=== PATIENT | male | born 1965 | race Caucasian/White ===

== ENCOUNTER → 2017-01-30 | Outpatient (CLI) | payer OTHER ==
--- NOTE | 2017-01-30 13:10 | Diagnostic Imaging Report ---
PROCEDURE: MRI right joint lower extremity without contrast. TECHNIQUE: Multiplanar, multisequence non contrast-enhanced MRI of the right lower extremity was accomplished. INDICATION: No known injury. Knee pain all over x8 months. FINDINGS: There is noted an osteochondral defect along the posterior aspect of the medial femoral condyle measuring 10 mm. There is some loss of articulating cartilage along the mid portion of the medial femoral condyle as well with some associated subcortical cystic change and sclerosis. The tibial plateau appears normal. The lateral femoral condyle and tibial plateau are normal. There is considerable increased signal within the anterior portion of the medial meniscus consistent with chronic mucoid degenerative changes. Could not exclude small partial tear of the inferior articulating surface. The lateral meniscus appears normal. The cruciate ligaments are intact. The medial collateral ligament and the lateral collateral ligament complex appear intact. The quadriceps tendon and patellar ligament are intact and normal. The patellofemoral joint appears normal. There is small joint effusion. No evidence of popliteal cyst. Surrounding soft tissues are normal. IMPRESSION: 1. The osteochondral defect along the posterior aspect of the medial femoral condyle. This measures approximately 10 mm. There is also loss of the articulating cartilage along the midportion of the medial femoral condyle. 2. Increased signal within the medial meniscus consistent with mucoid degenerative changes. Small incomplete tear cannot be excluded. Dictated by: Dictated on workstation # [id number]
== END ==
LOC: RAD 08:59
PROVIDERS: ATTEND Nurse Practitioner Family
DX: R93.8 Abnormal findings on diagnostic imaging of other specified body structures (principal); M25.561 Pain in right knee
CPT/HCPCS: 73721

== ENCOUNTER → 2017-02-26 | Outpatient (CLI) | payer OTHER ==
--- NOTE | 2017-02-26 13:44 | Diagnostic Imaging Report ---
INDICATION: Parotid fullness. COMPARISON: None. FINDINGS: Limited evaluation of the bilateral parotid glands demonstrates no obvious mass. There are some hypoechoic nodules on the left measuring approximately 10 mm. These could be lymph nodes. If there is concern for infection or mass, consider CT with contrast. IMPRESSION: Nonspecific nodules on the left, probably lymph nodes. Consider CT imaging with contrast. Dictated by: Dictated on workstation # [id number]
== END ==
LOC: RAD 12:38
PROVIDERS: ATTEND Nurse Practitioner Family
DX: R22.1 Localized swelling, mass and lump, neck (principal); K11.20 Sialoadenitis, unspecified
CPT/HCPCS: 76536

== ENCOUNTER → 2017-03-08 | Outpatient (CLI) | payer OTHER ==
[~2017-03-08] MED LIST: CATHETER FLUSH 10 ML SYR IV PRN; IOHEXOL 350 MG/ML 100 ML (OMNIPAQUE 350) VIAL IV ONE; NS 100 ML (IVPB) BAG IV ONE
[2017-03-08 12:12] LABS: BLOOD UREA NITROGEN 11 MG/DL (7-18); BUN/CREATININE RATIO 13; CREATININE SERUM 0.83 MG/DL (0.60-1.30); GFR ESTIMATED > 60
--- NOTE | 2017-03-08 15:58 | Diagnostic Imaging Report ---
PROCEDURE: CT maxillofacial with contrast. TECHNIQUE: After intravenous administration of contrast, axial images were obtained through the face and reformatted into coronal and sagittal planes. INDICATION: Left-sided facial swelling and pain. FINDINGS: There are no previous CT examinations available for comparison. The recent ultrasound examination of the neck performed on 02/26/2017 indicated that the parotid glands were generally unremarkable. There were a few small hypoechoic nodules on the left measuring 10 mm. These were felt to be related to lymph nodes. On this study, the left parotid gland does seem slightly larger than the right. There could be an element of mild parotitis present. There are also a few small subcentimeter nodes about both parotid glands. A few other smaller nodes are also seen on both sides of the neck. These are not pathologically enlarged. There is no mass or abscess identified, and there is no evidence for an obstructive calculus. The submandibular glands are generally unremarkable. The bone windows show no sign of a fracture or of a destructive lesion. The intracranial contents, where visualized, are unremarkable for an acute abnormality. There is mucosal thickening of the left maxillary antrum and both ethmoid sinuses. The sinuses are otherwise clear. IMPRESSION: 1. The slight prominence of the left parotid gland compared to the right does raise the question of mild parotitis on the left. Clinical followup is recommended. 2. There are a few subcentimeter nodes on each side of the neck. There is no mass or adenopathy identified, and there is no sign of an abscess. Dictated by: Dictated on workstation # [id number]
== END ==
LOC: RAD 11:25
PROVIDERS: ATTEND Nurse Practitioner Family
DX: K11.20 Sialoadenitis, unspecified (principal); R59.0 Localized enlarged lymph nodes
CPT/HCPCS: 36415; 70487; 82565; 84520

== ENCOUNTER → 2017-03-14 | Outpatient (CLI) | payer OTHER ==
[~2017-03-14] MED LIST changes: -IOHEXOL 350 MG/ML 100 ML (OMNIPAQUE 350) VIAL IV ONE; -NS 100 ML (IVPB) BAG IV ONE; +REGADENOSON 0.4 MG/5 ML SYR (LEXISCAN) IV ONE
[2017-03-14 13:26] VITALS: BP 149/107
[2017-03-14 13:28] VITALS: BP 163/104
[2017-03-14 13:32] VITALS: BP 166/113
--- NOTE | 2017-03-15 09:45 | STRESS TEST ---
DATE OF SERVICE: 03/14/2017 LEXISCAN MYOVIEW STRESS TEST REPORT. Baseline heart rate is 57. Baseline blood pressure 149/107. Baseline EKG is sinus rhythm with no ischemic changes. In summary, the patient was injected with 10.38 mCi of technetium-99 Myoview and the resting images were obtained. Then, the patient received 0.4 mg of Lexiscan followed by 28.4 mCi of technetium-99 Myoview. Throughout the test, there were no EKG changes. The resting and stress images were reviewed and compared in the short axis, horizontal long axis, and vertical long axis views. Review of the images showed diaphragmatic attenuation with no reversible ischemia involving the whole inferolateral wall. SSS is 17. SDS 4. TID value is 1.01. On the gated images, the left ventricle appeared to be dilated with hypokinesia involving the inferior wall, inferolateral wall, true lateral wall. Calculated ejection fraction 34%. CONCLUSION: 1. The patient tolerated Lexiscan well. 2. Diaphragmatic attenuation with decreased uptake involving the whole inferior wall inferolateral wall with mild reversibility. 3. Dilated left ventricle with hypokinesia involving the whole inferior wall, inferolateral wall and true lateral wall with calculated ejection fraction 34%. Job ID: [id number] DocumentID: [id number] Dictated Date: 03/14/2017 16:03:51 [employer] Date: 03/14/2017 17:19:43 Dictated By: ALTHEA ROSS MD
== END ==
LOC: CARD 11:34 → EDUNIT# 11:45
PROVIDERS: ATTEND Internal Medicine Cardiovascular Disease
DX: E11.9 Type 2 diabetes mellitus without complications (principal); I10 Essential (primary) hypertension; R06.02 Shortness of breath; R00.2 Palpitations
CPT/HCPCS: 78452; 93017

== ENCOUNTER → 2017-03-23 | Outpatient (CLI) | payer OTHER ==
--- NOTE | 2017-03-23 14:00 | Diagnostic Imaging Report ---
PROCEDURE: MRI lumbar spine. TECHNIQUE: Multiplanar, multisequence MRI of the lumbar spine was performed without contrast. INDICATION: Right knee pain and swelling. FINDINGS: There is good alignment of the vertebral bodies. Body height is well maintained. Marrow signal is normal throughout. The conus medullaris and cauda equina appear normal. L5-S1: There is a disc herniation on the right which extends along the lateral recess and into the right neural foramen. This is causing marked encroachment upon the right nerve root sleeve. Mild posterior facet and ligamentous hypertrophy present. L4-L5: There is small central disc protrusion. Moderate bilateral facet and ligamentous hypertrophy present causing moderate encroachment upon the lateral recesses and neural foramen bilaterally. No central canal stenosis. L3-L4: Disc shows normal contour. Mild posterior facet and ligamentous hypertrophy. L2-L3: Disc shows normal contour. Minimal facet and ligamentous hypertrophy without encroachment. L1-L2: Disc shows normal contour. Mild posterior facet and ligamentous hypertrophy. The paraspinal soft tissues appear normal. IMPRESSION: 1. Large disc herniation paramedian on the right at L5-S1 which does extend into the lateral recess and neural foramen causing considerable encroachment upon the nerve root sleeve. 2. Diffuse hypertrophic facet and ligamentous changes causing some encroachment, most prominently at the L4-L5 and L5-S1 levels. Dictated by: Dictated on workstation # [id number]
== END ==
LOC: RAD 11:42
PROVIDERS: ATTEND Nurse Practitioner
DX: M51.16 Intervertebral disc disorders with radiculopathy, lumbar region (principal); M47.27 Other spondylosis with radiculopathy, lumbosacral region
CPT/HCPCS: 72148

== ENCOUNTER 2019-08-18 19:51 | Emergency (ER) | payer OTHER ==
[~2019-08-18] VITALS: Ht 177.8 cm; Wt 102.1 kg
[2019-08-18] MEDS ORDERED: EPINEPHrine 0.1 MG/ML 10 ML (HOSPIRA) SYR INJ ONE (19:54)
[2019-08-18] MEDS ORDERED: NS IV 500 ML 500 ML IV ONE ×2 (20:01→21:09)
[2019-08-18 20:12] LABS: HEMATOCRIT 44 % (40-54); HEMOGLOBIN 14.3 G/DL (13.3-17.7); MEAN CORPUSCULAR HEMOGLOBIN 29 PG (25-34); MEAN CORPUSCULAR VOLUME 89 FL (80-99); WHITE BLOOD COUNT 18.2 10^3/uL (4.3-11.0)
[2019-08-18 20:13] VITALS: BP 131/65
[2019-08-18 20:13] LABS: BASOPHILS % (AUTO) 0 % (0-10); EOSINOPHILS % (AUTO) 0 % (0-10); LYMPHOCYTES # (AUTO) 2.5 X 10^3 (1.0-4.0); LYMPHOCYTES % (AUTO) 14 % (12-44); MEAN CORPUSCULAR HGB CONC 33 G/DL (32-36); MONOCYTES # (AUTO) 1.3 X 10^3 (0.0-1.0); MONOCYTES % (AUTO) 7 % (0-12); NEUTROPHILS # (AUTO) 14.1 X 10^3 (1.8-7.8); NEUTROPHILS % (AUTO) 78 % (42-75); PLATELET COUNT 189 10^3/uL (130-400)
[2019-08-18] MEDS ORDERED: NALOXONE 2 MG/2 ML (NARCAN) SYR IV ONE (20:15)
--- NOTE | 2019-08-18 20:18 | Diagnostic Imaging Report ---
PROCEDURE: CT head without contrast. TECHNIQUE: Multiple contiguous axial images were obtained through the brain without the use of intravenous contrast. Auto Exposure Controls were utilized during the CT exam to meet ALARA standards for radiation dose reduction. INDICATION: Unresponsive Study is limited by motion. Ventricles and sulci appear to be within normal limits for size. No definite hemorrhage is detected. Calvarium is intact. Visualized paranasal sinuses reveal mural thickening in both maxillary sinuses, greater on the left. IMPRESSION: No definite acute intracranial abnormality seen on limited examination. Follow-up study may be useful when patient is better able to cooperate. Dictated by: Dictated on workstation # [id number]
--- NOTE | 2019-08-18 20:25 | ED General ---
General Chief Complaint: Altered Mental Status Stated Complaint: ALTERED MENTAL STATUS Nursing Triage Note: PT TO ROOM FS03 VIA EMS WITH C/O ALTERED MENTAL STATUS. PT DID NOT GO TO WORK TODAY AND WAS FOUND BY DAUGHTER THIS EVENING. 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 Nursing Sepsis Screen: No Definite Risk Source of Information: EMS History of Present Illness Date Seen by Provider: Aug 18, 2019 Time Seen by Provider: 19:58 Initial Comments 54-year-old male brought in by EMS with altered mental status. Patient did not show up for work today. The work attempted to call him and got no response to work today. His daughter went to check on him this evening and he was found on the floor. Patient's lunchbox was fixed and diffuse get regular work. Patient's last known well time was told to 14 hours ago. Patient does have a significant history of stroke and cardiac problems. No other information is available at this time. Allergies and Home Medications Allergies Coded Allergies: No Allergy Information Available (Unverified , 03/08/17) Patient Home Medication List Home Medication List Reviewed: Yes Review of Systems Review of Systems Constitutional: see HPI Unable to obtain due to patient being altered with decreased responsiveness Past Ovedzvx-Iusizm-Ethwcq Hx Past Med/Social Hx: Reviewed Nursing Past Med/Soc Hx Patient Social History Alcohol Use: Denies Use Recreational Drug Use: No Smoking Status: Never a Smoker 2nd Hand Smoke Exposure: No Recent Foreign Travel: No Contact w/Someone Who Travel: No Recent Infectious Disease Expo: No Recent Hopitalizations: No Seasonal Allergies Seasonal Allergies: No Past Medical History Surgeries: No Respiratory: No Cardiac: No Neurological: No Genitourinary: No Gastrointestinal: No Musculoskeletal: No Endocrine: No HEENT: No Cancer: No Psychosocial: No Integumentary: No Blood Disorders: No Physical Exam Vital Signs Vital Signs - First Documented 08/18/19 20:13 Temp 36.4 Pulse 75 Resp 22 B/P (MAP) 131/65 (87) O2 Delivery Non Rebreather O2 Flow Rate 10.00 Capillary Refill : Less Than 3 Seconds Height, Weight, BMI Height: '" Weight: lbs. oz. kg; 32.00 BMI Method: General Appearance: Other (patient will respond to his name and look at you. He moves all extremities.) Eyes: Bilateral Eye EOMI, Bilateral Eye Other (constricted pupils) HEENT: Normal ENT Inspection Neck: Non Tender, Supple Respiratory: Crackles, Decreased Breath Sounds Cardiovascular: Regular Rate, Rhythm, No Edema Gastrointestinal: Soft, Tenderness (patient seems diffusely tender to abdomen palpation) Extremity: Normal Capillary Refill, Normal Inspection, Normal Range of Motion Neurologic/Psychiatric: Disoriented; No Motor Weakness; Other (patient very active, will move away from examiner's around his face and eyes. He will open his eyes and look at you but is not responding verbally.) Skin: Normal Color, Warm/Dry; No Rash Progress/Results/Core Measures Suspected Sepsis Recent Fever Within 48 Hours: No Infection Criteria Present: None New/Unexplained Altered Menta: No Sepsis Screen: No Definite Risk SIRS Temperature: Pulse: 75 Respiratory Rate: 22 Laboratory Tests 08/18/19 19:57: White Blood Count 18.2H Blood Pressure 131 /65 Mean: 87 Laboratory Tests 08/18/19 19:57: Creatinine 2.20H, INR Comment 1.2, Platelet Count 189, Total Bilirubin 1.2H Results/Orders Lab Results Laboratory Tests Test 08/18/19 19:57 08/18/19 20:02 08/18/19 20:30 Range/Units White Blood Count 18.2 H 4.3-11.0 10^3/uL Red Blood Count 4.91 4.35-5.85 10^6/uL Hemoglobin 14.3 13.3-17.7 G/DL Hematocrit 44 40-54 % Mean Corpuscular Volume 89 80-99 FL Mean Corpuscular Hemoglobin 29 25-34 PG Mean Corpuscular Hemoglobin Concent 33 32-36 G/DL Red Cell Distribution Width 14.0 10.0-14.5 % Platelet Count 189 130-400 10^3/uL Mean Platelet Volume 10.0 7.4-10.4 FL Neutrophils (%) (Auto) 78 H 42-75 % Lymphocytes (%) (Auto) 14 12-44 % Monocytes (%) (Auto) 7 0-12 % Eosinophils (%) (Auto) 0 0-10 % Basophils (%) (Auto) 0 0-10 % Neutrophils # (Auto) 14.1 H 1.8-7.8 X 10^3 Lymphocytes # (Auto) 2.5 1.0-4.0 X 10^3 Monocytes # (Auto) 1.3 H 0.0-1.0 X 10^3 Eosinophils # (Auto) 0.0 0.0-0.3 10^3/uL Basophils # (Auto) 0.0 0.0-0.1 10^3/uL Neutrophils % (Manual) 78 % Lymphocytes % (Manual) 7 % Monocytes % (Manual) 7 % Reactive Lymphocytes 8 % Microcytosis MODERATE Prothrombin Time 16.1 H 12.2-14.7 SEC INR Comment 1.2 0.8-1.4 Activated Partial Thromboplast Time 31 24-35 SEC Sodium Level 146 H 135-145 MMOL/L Potassium Level 4.0 3.6-5.0 MMOL/L Chloride Level 105 98-107 MMOL/L Carbon Dioxide Level 19 L 21-32 MMOL/L Anion Gap 22 H 5-14 MMOL/L Blood Urea Nitrogen 25 H 7-18 MG/DL Creatinine 2.20 H 0.60-1.30 MG/DL Estimat Glomerular Filtration Rate 31 BUN/Creatinine Ratio 11 Glucose Level 182 H 70-105 MG/DL Calcium Level 9.5 8.5-10.1 MG/DL Corrected Calcium 9.3 8.5-10.1 MG/DL Total Bilirubin 1.2 H 0.1-1.0 MG/DL Aspartate Amino Transf (AST/SGOT) 39 H 5-34 U/L Alanine Aminotransferase (ALT/SGPT) 21 0-55 U/L Alkaline Phosphatase 86 40-136 U/L Ammonia 26 11-32 UMOL/L Troponin I 3.08 *H <0.30 NG/ML Pro-B-Type Natriuretic Peptide 9070.0 H <75.0 PG/ML Total Protein 7.2 6.4-8.2 GM/DL Albumin 4.2 3.2-4.5 GM/DL Serum Alcohol < 10 <10 MG/DL Blood Gas Puncture Site RIGHT RADIAL Blood Gas Patient Temperature 36.8 Arterial Blood pH 7.37 7.37-7.43 Arterial Blood Partial Pressure CO2 31 L 35-45 MMHG Arterial Blood Partial Pressure O2 44 L 79-93 MMHG Arterial Blood HCO3 18 L 23-27 MMOL/L Arterial Blood Total CO2 18.9 L 21.0-31.0 MMOL/L Arterial Blood Oxygen Saturation 78 L 94-100 % Arterial Blood Base Excess -6.3 L -2.5-2.5 MMOL/L Abisai Test NEG Blood Gas Ventilator Setting NO Blood Gas Inspired Oxygen NONE Glucometer 110 70-110 MG/DL Micro Results Microbiology 08/18/19 Influenza Types A,B Antigen (СЕРГЕЙ) - Final, Complete My Orders Orders - ROBARLENE Pam DO Ct Head Wo (08/18/19:) Accucheck Stat ONCE (08/18/19 20:) Ed Iv/Invasive Line Start (08/18/19 20:) Ekg Tracing (08/18/19:) End Tidal Co2 (08/18/19:) Ed Iv/Invasive Line Start (08/18/19 20:) Ns Iv 500 Ml (Sodium Chloride 0.9%) (08/18/19 20:) Alcohol (08/18/19:) Arterial Blood Gas (08/18/19:) Cbc With Automated Diff (08/18/19:) Comprehensive Metabolic Panel (08/18/19:) Drug Screen Stat (Urine) (08/18/19:) Lactic Acid Analyzer (08/18/19:) Ua Culture If Indicated (08/18/19 20:) Probnp Fs (08/18/19 20:) Naloxone Injection (Narcan Injection) (08/18/19 20:15) Acute Abd Series (08/18/19 20:01) Manual Differential (08/18/19 19:57) Ammonia (08/18/19 19:57) Influenza A And B Antigens (08/18/19 20:23) Arevalo Cath (08/18/19 20:31) Ed Iv/Invasive Line Start (08/18/19 20:31) Ns Iv 1000 Ml (Sodium Chloride 0.9%) (08/18/19 20:31) Cefepime Injection (Maxipime Injection) (08/18/19 20:45) Troponin I Fs (08/18/19 20:37) Bipap (Bilevel) Set Up (08/18/19 20:50) Norepinephrine 4 Mg/250 Ml (Norepinephri (08/18/19 21:15) Ed Iv/Invasive Line Start (08/18/19 21:06) Heparin Drip 31783 Unit/500ml (Heparin (08/18/19 21:06) Heparin (Bolus Per Protocol) (Heparin (B (08/18/19 21:06) Ed Iv/Invasive Line Start (08/18/19 21:09) Ns Iv 500 Ml (Sodium Chloride 0.9%) (08/18/19 21:09) Protime With Inr (08/18/19 21:32) Partial Thromboplastin Time (08/18/19 21:32) Arterial Blood Gas (08/18/19 22:33) Medications Given in ED Current Medications Medications Dose Ordered Sig/Deann Route Start Time Stop Time Status Last Admin Dose Admin Cefepime HCl 1000 mg/Sterile Water 10 ml @ 200 mls/hr ONCE ONCE IV 08/18/19 20:45 08/18/19 20:47 DC 08/18/19 21:27 200 MLS/HR Heparin Sodium (Porcine) HEPARIN BOLUS ACS PROTOC... 2106 ONCE IV 08/18/19 21:06 08/18/19 21:09 DC 08/18/19 21:34 5,000 UNIT Heparin Sodium/ Dextrose 500 ml @ 0 mls/hr Q0M ONCE IV 08/18/19 21:06 08/18/19 21:09 DC 08/18/19 21:43 24 MLS/HR Vital Signs/I&O 08/18/19 20:13 Temp 36.4 Pulse 75 Resp 22 B/P (MAP) 131/65 (87) O2 Delivery Non Rebreather O2 Flow Rate 10.00 08/19/19 00:00 Intake Total 10 ml Balance 10 ml Capillary Refill : Less Than 3 Seconds Blood Pressure Mean: 87 Progress Note : Time: 21:13 Progress Note Patient much more alert and responsive following treatment. Patient will be transferred to [place] ICU since [facility] is on diversion. Patient will get 500 mL fluid boluses as tolerated. Patient will be started on Levaquin said drip and heparin. Patient tolerates BiPAP very well and is signally more alert following BiPAP. Patient however still does not communicate with me. Patient was given cefepime for sepsis. Bedside ultrasound showed an dilated inferior vena cava. Consistent with pulmonary edema and need for gentle hydration. 2320 as patient was being loaded onto the cot to be transferred family called and requested that transfer be moved from [place] to [facility]. Patient's sister reports that patient had significant cardiac history including a aortic valve replacement along with other significant cardiac events. Patient's daughter did not relay this information to us and we were unaware that patient's family was in [place]. When discussed with family that patient was just to leave the ER they ask us to hold along with a discussed with family. In the process of waiting for family to determine patient is transfer destination, patient had an acute change. Patient went to asystole, and no further breathing activity. CPR was started. Patient was intubated, during intubation patient had a significant amount of fluid and frothy liquid coming out of his lungs. Patient had liquid coming out of the ET tube. Patient was given 3 rounds of epinephrine with good quality CPR. We were unable to obtain return of spontaneous circulation. CPR was stopped at 2358 and patient was pronounced. Departure Impression Primary Impression: Septic shock Additional Impressions: Elevated troponin Cardiogenic shock AMS (altered mental status) Qualified Codes: R41.82 - Altered mental status, unspecified Cardiac arrest Disposition: 20 Condition: Transfer Transfer Reason: Diversion Time Spoke to Accepting Phy: 21:00 Transfer Facility: [facility] Method of Transfer: EMS Departure-Patient Inst. Referrals: NERI LIGHT DO (PCP) Primary Care Physician LING SALINAS APRN (Family) Primary Care Physician ARLENE ROB DO Aug 18, 2019 20:25
[2019-08-18 20:28] LABS: ALANINE AMINOTRANSFERASE 21 U/L (0-55); ALBUMIN 4.2 GM/DL (3.2-4.5); ALKALINE PHOSPHATASE 86 U/L (40-136); BILIRUBIN,TOTAL 1.2 MG/DL (0.1-1.0); BUN/CREATININE RATIO 11; CALCIUM 9.5 MG/DL (8.5-10.1); CARBON DIOXIDE 19 MMOL/L (21-32); CHLORIDE 105 MMOL/L (98-107); GFR ESTIMATED 31; GLUCOSE 182 MG/DL (70-105); SODIUM 146 MMOL/L (135-145); TOTAL PROTEIN 7.2 GM/DL (6.4-8.2)
[2019-08-18] MEDS ORDERED: NS IV 1000 ML 1,000 ML IV SCH (20:31)
[2019-08-18 20:41] LABS: ABG BASE EXCESS -6.3 MMOL/L (-2.5-2.5); ABG OXYGEN SATURATION 78 % (94-100); ABG PCO2 31 MMHG (35-45); ABG PH 7.37 (7.37-7.43); ABG PO2 44 MMHG (79-93); ABG TCO2 18.9 MMOL/L (21.0-31.0)
[2019-08-18 20:42] LABS: PATIENT TEMP 36.8; VENTILATOR NO
--- NOTE | 2019-08-18 20:43 | Diagnostic Imaging Report ---
INDICATION: Altered mental status. Single AP view of the chest is obtained with supine images of the abdomen. There is cardiomegaly with predominantly central airspace disease in both lungs. Stent projects over the mediastinum. This may be esophageal or aortic. There is no evidence of pneumothorax. Overall bowel gas pattern is unremarkable. There is gaseous distention of the stomach. No free intraperitoneal gas or site of obstruction is identified. IMPRESSION: Central airspace disease in both lungs may reflect edema or possible pneumonia. Radiographic follow-up would be of use. Dictated by: Dictated on workstation # [id number]
[2019-08-18] MEDS ORDERED: CEFEPIME INJECTION 1,000 MG in WATER (STERILE) FOR INJECTION 10 ML IV ONE (20:45)
[2019-08-18 20:47] LABS: ALLENS TEST NEG
[2019-08-18 20:52] LABS: LYMPHOCYTES % (MANUAL) 7 %; MONOCYTES % (MANUAL) 7 %; NEUTROPHILS % (MANUAL) 78 %
[2019-08-18 20:53] LABS: MICROCYTOSIS MODERATE; REACTIVE LYMPHOCYTES 8 %
[2019-08-18] MEDS ORDERED: HEParin 1000 UNIT/ML (10ML VIAL) FOR BOLUS IV ONE (21:06)
[2019-08-18] MEDS ORDERED: HEParin DRIP 25000 UNIT/500ML 500 ML IV ONE (21:06)
[2019-08-18] MEDS ORDERED: NOREPINEPHRINE 4 MG/250 ML 250 ML IV SCH (21:15)
[2019-08-18 21:40] LABS: INR 1.2 (0.8-1.4); PROTHROMBIN TIME PATIENT 16.1 SEC (12.2-14.7)
--- NOTE | 2019-08-18 22:05 | NUR ---
LEVOPHED REMAINS AT 1MCG/KG/MIN PER PROVIDER. Addendum: 08/18/19 at 2309 by BONY LEVOPHEN RUNNING AT 0.1 MCG/KG/MIN.
--- NOTE | 2019-08-18 23:38 | NUR ---
1MG EPI GIVEN AT 2338.
--- NOTE | 2019-08-18 23:49 | NUR ---
1MG EPI GIVEN AT 2349
--- NOTE | 2019-08-18 23:58 | NUR ---
2338 - 1ST EPI ADMIN 2343 - 1ST ETT ATTEMPT 2344 - SUCTION AIRWAY 2346 - ETT PLACED 2347 - RHYTHM CHECK 2347 - COMPRESSIONS RESUMED 2348 - ETT TUBE KOENIG PLACED 234 - 2ND EPI ADMIN 2350 - RHYTHM CHECK, NO PULSE 2350 - COMPRESSIONS RESUMED 2352 - RHYTHM CHECK, NO PULSE 2352 - COMPRESSIONS RESUMED 2358 - TIME OF CALLED BY PROVIDER
--- NOTE | 2019-08-19 00:51 | NUR ---
ICE APPLIED TO PT.
--- NOTE | 2019-08-19 01:48 | NUR ---
[facility]N CALLED AND INFORMED THIS RN THAT THE PT SISTER DOES NOT WANT THE PT DAUGHTER CONTACTED REGARDING DONATION UNTIL THE MORNING. MTN INFORMED THIS RN THAT THE PT WILL NEED TO STAY HERE UNTIL THE MORNING AND THAT I SHOULD CONTINUE TO APPLY ICE TO THE PT.
--- NOTE | 2019-08-19 03:46 | NUR ---
[facility]N CALLED AND INFORMED THAT FAMILY HAS GIVEN PERMISSION AND THAT TRANSPORT WILL BE CALLING TO GIVE ETA FOR TRANSPORT TO PICK PT UP.
--- NOTE | 2019-08-19 04:24 | NUR ---
RONALDO CALLED TO INFORM THAT NERI TUCKER FROM [facility] WILL BE HER IN APPROX 2HR FOR PT.
--- NOTE | 2019-08-19 06:36 | NUR ---
TRANSPORT FOR PT HAS ARRIVED.
--- NOTE | 2019-08-21 10:34 | NUR ---
[facility] CALLED WANTING THE PTS PRIMARY CARE PROVIDERS INFORMATION FOR THE CERTIFICATE.
--- OUTSIDE RECORDS SUMMARY | 2019-08-27 20:57 | XMS REPORT | Encounter Summary ---
Author Author [facility] Organization [facility] Address Unknown Phone Unavailable Care Team Providers Care Tele Rn Name Role Phone Leanne Xiong PCP Unavailable Encounter Details Care Team Description Date Type Department Tommie Bruner MD [address] [facility] [address] [place] [address] [phone] 11/11/2014 [facility] Visit Social History Date Tobacco Use Types Packs/Day Years Used Current Every Day Smoker 0.25 14 Drinks/Week oz/Week Comments Alcohol Use once/month Yes Sex Assigned at Date Recorded Not on file Industry Job Start Date Occupation Not on file Not on file Not on file Travel End Travel History Travel Start No recent travel history available. documented as of this encounter Progress Notes * Tommie Bruner MD - 11/11/2014 10:10 AM CDT [place] [facility] [address] [place] [id number] November 11, 2014 Leanne Xiong MD [address] [facility] [address] [place] [address] RE: GIACOMO TRAYLOR : 1965 Chart #: [id number] Dear Layton This is a courtesy letter informing you it is time for your 2015 annual appointm ent -last annual on August with Dr. Truman Ramsey.I have tasked a sched uler to assist you in scheduling your 2015 annual appointment for the best time that fits your schedule. If you have not been contacted by a strategic marketing manager in 1 or 2 days please give us a call to schedule [phone]. We continue to provide our patients with high-quality care, if there is any othe r assistance needed please give us a call. Sincerely, Lawrence Ramsey M.D. cc: Andres Maki MD [address] [facility] [address] [place] [address] F: 11/11/2014 documented in this encounter Plan of Treatment Not on filedocumented as of this encounter Visit Diagnoses Not on filedocumented in this encounter
--- OUTSIDE RECORDS SUMMARY | 2019-08-27 20:57 | XMS REPORT | Encounter Summary ---
Author Author [facility] Organization [facility] Address Unknown Phone Unavailable Care Team Providers Care Departure Clerk Name Role Phone Leanne Xiong PCP Unavailable Encounter Details Care Team Description Date Type Department Hailee Ku, RN [employer] [address] [place] [address] [phone] 11/11/2014 [facility] Visit Social History Date [...] history available. documented as of this encounter Plan of Treatment Not on filedocumented as of this encounter Visit Diagnoses Not on filedocumented in this encounter
--- OUTSIDE RECORDS SUMMARY | 2019-08-27 20:57 | XMS REPORT | Encounter Summary ---
Author Author [facility] Organization [facility] Address Unknown Phone Unavailable Care Team Providers Care Acid Dipper Name Role Phone Leanne Xiong PCP Unavailable Encounter Details Care Team Description Date Type Department Christiano Huddleston MD [address] [facility] [address] [place] [address] [phone] 02/27/2018 Documentation [facility] [address] [facility] [address] [place] [address] Social History Date Tobacco Use Types Packs/Day [...]
--- OUTSIDE RECORDS SUMMARY | 2019-08-27 20:57 | XMS REPORT | Clinical Summary ---
Author Author [facility] Organization [facility] Address Unknown Phone Unavailable Care Team Providers Care Lead Front End Developer Name Role Phone Leanne Xiong PCP Unavailable Allergies Comments Active Allergy Reactions Severity Noted Date Bee Sting Kit 03/02/2014 Medications End Date Status Medication Sig Dispensed Refills Start Date Active HYDROcodone-acetaminophen Take 1 tablet 0 (NORCO) 7.5-325 mg per by mouth tablet every 8 (eight) hours as needed for pain. Active ALPRAZolam (XANAX) 0.5 MG Take 0.5 mg 0 tablet by mouth 3 (three) times a day as needed for sleep. Active aspirin 81 MG chewable Chew 81 mg 0 tablet daily. Active carvedilol (COREG) 6.25 Take 1 tablet 60 tablet 6 MG tabletIndications: (6.25 mg 4 hypertension total) by mouth 2 (two) times a day. Active fenofibrate (TRICOR) 54 Take 1 tablet 30 tablet 6 MG tabletIndications: (54 mg total) 4 hypertriglyceridemia by mouth daily. Active clopidogrel (PLAVIX) 75 Take 1 tablet 30 tablet 11 mg tabletIndications: (75 mg total) 4 acute coronary syndrome, by mouth acute ST elevation daily. myocardial infarction Active traMADol (ULTRAM) 50 mg Take by 30 0 tablet mouth. 3 Active insulin needles, 1 syringe 10 0 disposable, 29 x 1/2 " daily for 5 Ndle insulin administratio n Active pantoprazole (PROTONIX) take 1 tablet 1 0 40 MG tablet (40MG) by 4 oral route every day Active metFORMIN (GLUCOPHAGE) take 1 tablet 1 0 0 1000 MG tablet (1000MG) by 4 oral route 2 times every day with morning and evening meals Active lisinopril take 1 tablet 1 0 (PRINIVIL,ZESTRIL) 10 MG (10MG) by 4 tablet oral route every day Active glipiZIDE (GLUCOTROL XL) take 1 tablet 1 0 10 MG 24 hr tablet (10MG) by 4 oral route every day with breakfast Active insulin NPH-insulin inject by 1 0 regular (HUMULIN 70/30) subcutaneous 4 100 unit/mL (70-30) route as per injection insulin protocol Active pravastatin (PRAVACHOL) take 1 tablet 1 0 80 MG tablet (80MG) by 4 oral route every day Active fenofibrate micronized take 1 30 1 (ANTARA) 43 MG capsule capsule 4 (43MG) by oral route every day Active ALPRAZolam (XANAX) 1 MG take 1 tablet 1 0 tablet (1MG) by 4 oral route every 6 hoursPRN for anxiety Active nitroglycerin (NITROSTAT) place 1 1 0 0.4 MG SL tablet tablet 4 (0.4MG) by sublingual route at the 1st sign of attack; may repeat every 5 min until relief; if pain persists after 3 tablets in 15 min, prompt medical attention is recommended Active clopidogrel (PLAVIX) 75 take 4 30 11 mg tablet tablets(300MG 4 ) by oral route now, then take 1 tablet (75MG) every day Active aspirin 81 MG chewable chew 1 tablet 30 4 0 tablet (81MG) by 4 oral route every day Active carvedilol (COREG) 6.25 take 1 tablet 60 11 MG tablet (6.25MG) by 2 oral route 2 times every day with food Active HYDROcodone-acetaminophen take 1 tablet 90 0 (NORCO) 7.5-325 mg per by oral route 2 tablet every 6 hours as needed for pain Active Problems Problem Noted Date STEMI (ST elevation myocardial infarction) 4 Obstructive sleep apnea 01/17/2013 Overview: ICD-10 conversion Type 2 diabetes mellitus without complications 10/07 Overview: ICD-10 conversion Stasis dermatitis 04/05/2012 Transient cerebral ischemia 03/06/2012 Overview: ICD-10 conversion Allergic rhinitis 03/01/2012 Overview: ICD-10 conversion Dermatitis 03/01/2012 Vitamin D deficiency 11/15/2011 Overview: ICD-10 conversion Malaise and fatigue 11/10/2011 Overview: IMO Update Hyperlipidemia 11/10/2011 Overview: ICD10 Aortic aneurysm 11/10/2011 Overview: ICD-10 conversion Coronary atherosclerosis 11/10/2011 Overview: ICD-10 conversion Obesity 11/10/2011 Overview: ICD-10 conversion Essential hypertension 11/10/2011 Overview: ICD-10 conversion Anxiety state 11/10/2011 Overview: ICD-10 conversion Joint pain, knee 11/10/2011 Ganglion Of The Right Hand 11/10/2011 Immunizations Name Administration Dates Next Due Influenza TIV (IM) 03/01/2012 MMR Td 11/09/2002 Family History Medical History Relation Name Comments Hepatitis Father Hepatitis; Coronary artery disease Mother Acute Myocardi al Infarction; Stroke Mother Stroke Syndrome; Heart disease Sister Heart Disease; Hyperlipidemia Sister Hyperlipidemia; Hypertension Sister Hypertension; Relation Name Status Comments Father Cause of was Liver disease at age 67. (Age 67) Mother Cause of was AL at age 50. (Age 50) Sister Social History Date Tobacco Use Types Packs/Day Years Used Current Every Day Smoker 0.25 14 Drinks/Week oz/Week Comments Alcohol Use once/month Yes Sex Assigned at Date Recorded Not on file Industry Job Start Date Occupation Not on file Not on file Not on file Travel End Travel History Travel Start No recent travel history available. Last Filed Vital Signs Reading Time Taken Comments Vital Sign 115/65 03/06/2014 7:00 AM CDT Blood Pressure 63 03/06/2014 7:00 AM CDT Pulse 36.3 C (97.4 F) 03/06/2014 7:00 AM CDT Temperature 18 03/06/2014 7:00 AM CDT Respiratory Rate 96% 03/06/2014 7:00 AM CDT Oxygen Saturation - - Inhaled Oxygen Concentration 106.6 kg (235 lb) 03/06/2014 5:27 AM CDT Weight 170.2 cm (5' 7") 03/02/2014 9:00 PM CDT Height 36.81 03/02/2014 9:00 PM CDT Body Mass Index Plan of Treatment Health Maintenance Due Date Last Done Comments Diabetes Mellitus 1966 Ophthalmology Exam Tobacco Cessation 1966 Counseling # Pneumococcal Vaccine: 1972 Pediatrics (0 to 5 Years) and At-Risk Patients (6 to 64 Years) (1 of 1 - PPSV23) Diabetes Mellitus Foot 1976 Exam Td # 11/09/2012 11/09/2002 Diabetes Mellitus 09/02/2014 03/02/2014, Hemoglobin A1C 07/25/2013, 01/17/2013, Additional history exists Lipid Screening 03/03/2015 03/03/2014, 07/24/2013, 03/21/2013, Additional history exists Colorectal Screening via 2016 Colonoscopy Zoster Vaccine# (1 of 2) 2016 Influenza Vaccine (#1) 2019 03/01/2012 Implants Device Identifier Shelf Expiration Date Model / Serial / L ot Implanted Type Area Manufactur er Stent/Heart And Aorta Implanted: (Quantity not on file) Explanted: (Quantity not on file) Results Not on filefrom Last 3 Months Advance Directives For more information, please contact: [phone] Date Inactivated Comments Code Status Date Activated 03/06/2014 5:21 PM Full Code 03/02/2014 9:23 PM 03/02/2014 9:23 PM Full Code 03/02/2014 9:13 PM
--- OUTSIDE RECORDS SUMMARY | 2019-08-27 20:57 | XMS REPORT | Encounter Summary ---
Author Author [facility] Organization [facility] Address Unknown Phone Unavailable Care Team Providers Care Dye Automation Operator Name Role Phone Leanne Xiong PCP Unavailable Encounter Details Care Team Description Date Type Department 03/06/2014 [facility] [...]
--- OUTSIDE RECORDS SUMMARY | 2019-08-27 20:57 | XMS REPORT | Encounter Summary ---
Author Author [facility] Organization [facility] Address Unknown Phone Unavailable Care Team Providers Care Optical Design Engineer Name Role Phone Leanne Xiong PCP Unavailable Encounter Details Care Team Description Date Type Department Tamiko Morin MD [address] [facility] [address] [place] [address] [phone] 03/15/2014 [facility] Visit Social History Date [...]
--- OUTSIDE RECORDS SUMMARY | 2019-08-27 20:57 | XMS REPORT | Encounter Summary ---
Author Author [facility] Organization [facility] Address Unknown Phone Unavailable Care Team Providers Care Pipe Smoking Machine Operator Name Role Phone Leanne Xiong PCP Unavailable Encounter Details Care Team Description Date Type Department Hailee Ku, RN BUSINESS SERVICES ASSOCIATE [address] [place] [address] [phone] 03/18/2014 [facility] Visit Social History Date [...]
--- OUTSIDE RECORDS SUMMARY | 2019-08-27 20:57 | XMS REPORT | Encounter Summary ---
Author Author [facility] Organization [facility] Address Unknown Phone Unavailable Care Team Providers Care Baking Powder Mixer Name Role Phone Leanne Xiong PCP Unavailable Encounter Details Care Team Description Date Type Department Hailee Ku, RN ELECTRIC MOTOR TESTER [address] [place] [address] [phone] 11/09/2014 [facility] C Visit Social History Date [...]
--- OUTSIDE RECORDS SUMMARY | 2019-08-27 20:57 | XMS REPORT | Encounter Summary ---
Author Author [facility] Organization [facility] Address Unknown Phone Unavailable Care Team Providers Care Blade Aligner Name Role Phone Leanne Xiong PCP Unavailable Encounter Details Care Team Description Date Type Department Lawrence Ramsey MD [address] [facility] [address] [place] [address] [phone] 08/02/2014 [facility] Visit Social History Date [...]
--- OUTSIDE RECORDS SUMMARY | 2019-08-27 20:58 | XMS REPORT | Encounter Summary ---
Author Author [facility] Organization [facility] Address Unknown Phone Unavailable Care Team Providers Care Tools Programmer Name Role Phone Leanne Xiong PCP Unavailable Encounter Details Care Team Description Date Type Department Fabrice Nielsen MD [address] [facility] [address] [place] [address] [phone] 09/13/2013 [facility] Visit Social History Date Tobacco Use Types Packs/Day Years Used Never Assessed Sex Assigned at Date Recorded Not on file Industry Job Start Date Occupation Not on file Not on file Not on file Travel End Travel History Travel Start No recent travel history available. documented as of this encounter Plan of Treatment Not on filedocumented as of this encounter Visit Diagnoses Not on filedocumented in this encounter
--- OUTSIDE RECORDS SUMMARY | 2019-08-27 20:58 | XMS REPORT | Encounter Summary ---
Author Author [facility] Organization [facility] Address Unknown Phone Unavailable Care Team Providers Care Nutrition Representative Name Role Phone Leanne Xiong PCP Unavailable Encounter Details Care Team Description Date Type Department Tamiko Morin MD [address] [facility] [address] [place] [address] [phone] 08/29/2013 [facility] [...]
--- OUTSIDE RECORDS SUMMARY | 2019-08-27 20:58 | XMS REPORT | Encounter Summary ---
Author Author [facility] Organization [facility] Address Unknown Phone Unavailable Care Team Providers Care Tax Collector Name Role Phone Leanne Xiong PCP Unavailable Encounter Details Care Team Description Date Type Department ProviderJohanna MD [address] [place] [address] 09/26/2013 [facility] ion Encounter [address] [place] [address] Social History Date Tobacco Use Types Packs/Day Years Used Never Assessed Sex Assigned at Date Recorded Not on file Industry Job Start Date Occupation Not on file Not on file Not on file Travel End Travel History Travel Start No recent travel history available. documented as of this encounter Progress Notes * ProviderJohanna MD - 09/26/2013 2:00 PM CDT Date: 26 Sep 2013 2:00 PM DISPATCHER SERVICE CHIEF, Recorded By: Sarah Kidd Caller: [facility] calls and asks that patient's Ibuprofen be refilled, I advised them rosales t he was no longer a patient of Dr. Canseco. Electronically signed by:Sarah Kidd Sep 26 2013 2:01PM DISPATCHER SERVICE CHIEF Author documented in this encounter Plan of Treatment Not on filedocumented as of this encounter Visit Diagnoses Not on filedocumented in this encounter
--- OUTSIDE RECORDS SUMMARY | 2019-08-27 20:58 | XMS REPORT | Encounter Summary ---
Author Author [facility] Organization [facility] Address Unknown Phone Unavailable Care Team Providers Care Tire Fabric Inspector Name Role Phone Leanne Xiong PCP Unavailable Encounter Details Care Team Description [place] [address] [facility] [address] [place] [address] [phone] 01/15/2014 [facility] [...]
--- OUTSIDE RECORDS SUMMARY | 2019-08-27 20:58 | XMS REPORT | Encounter Summary ---
Author Author [facility] Organization [facility] Address Unknown Phone Unavailable Care Team Providers Care Banking Center Manager Name Role Phone Leanne Xiong PCP Unavailable Encounter Details Care Team Description Date Type Department 03/02/2014 [facility] [...]
--- OUTSIDE RECORDS SUMMARY | 2019-08-27 20:58 | XMS REPORT | Encounter Summary ---
Author Author [facility] Organization [facility] Address Unknown Phone Unavailable Care Team Providers Care Circulation Clerk Name Role Phone Leanne Xiong PCP Unavailable Encounter Details Care Team Description Date Type Department 03/03/2014 [facility] [...]
--- OUTSIDE RECORDS SUMMARY | 2019-08-27 20:58 | XMS REPORT | Encounter Summary ---
Author Author [facility] Organization [facility] Address Unknown Phone Unavailable Care Team Providers Care Medicine Teacher Name Role Phone Leanne Xiong PCP Unavailable Encounter Details Care Team Description Date Type Department Freedom Torres MD NO FORWARDING ADDRESS [facility] [address] 03/06/2014 [place] [address] Social History Date Tobacco Use Types Packs/Day Years Used Current Every Day Smoker 0.25 14 Drinks/Week oz/Week Comments Alcohol Use once/month Yes Sex Assigned at Date Recorded Not on file Industry Job Start Date Occupation Not on file Not on file Not on file Travel End Travel History Travel Start No recent travel history available. documented as of this encounter Last Filed Vital Signs Reading Time Taken [...] 03/02/2014 9:00 PM CDT Body Mass Index documented in this encounter Discharge Summaries * Hailee Ku RN FLOOR SANDING MACHINE OPERATOR - 03/03/2014 4:14 PM CDT [facility] Discharge Summary Name: Giacomo Traylor CPI: [id number] Date of : 1965 Primary care physician: Leanne Xiong MD Date of admission: 03/02/2014 Date of discharge: Admitting physician: Dr. Freedom Torres Chief complaint: ST Elevation Myocardial Infarction Hospital course: We are discharging Giacomo Traylor from [facility] on 03/04/2014. As you know, this is a 48 y.o. male patient wit h a history of coronary artery disease, type B Aorta dissection with repair in 2 011, dyslipidemia, hypertension and tobacco abuse who presented through the ED v ia ambulance from [facility] with retrosternal chest pain starting around 5: 00pm. EKG in [place] met criteria for Code STEMI. Nitroglycerin drip was init iated in route. He was taken urgently to the catheterization lab on admission fo r coronary angiogram by Dr. Torres revealing 2-vessel CAD with culprit lesion 100 % occluded dRCA with moderate thrombus. He underwent successful PCI/ANNA x 1. He tolerated the procedure well. He will be sent home on AIYANA with Plavix and ASA, h igh dose statin, bb. He underwent echocardiogram on 03/02 revealing mildly reduce d LV systolic function with lvef of 45%, inferior and inferolateral akinesis; mi ld RV dilatation; no significant valve abnormalities.He will need to undergo MPI in 4 weeks to assess the significance of residual LAD disease which was felt am enable to PCI if necessary. His chronic medical care and regimen is complicated by the fact that he does not have any insurance and has significant financial mcknight rdship. real estate services coordinator was consulted to assist him in available resources. Blood sugars ran 200s-300s: he was seen in consultation by endocrinology: treate d with NPH insulin, metformin, glipizide, education and glucometer provided [place]: not using Cpap at home: strongly encouraged to use nightly Peak Troponin: 30.30 A1c: 15.8 LDL "not calc", Trg 1125, HDL 17 Cr 0.8 Physical exam: BP 115/65 | Pulse 63 | Temp(Src) 36.3 C (97.4 F) (Oral) | Resp 18 | Ht 1.702 m (5' 7") | Wt 106.595 kg (235 lb) | BMI 36.8 kg/m2 | SpO2 96% BP 115/65 | Pulse 63 | Temp(Src) 36.3 C (97.4 F) (Oral) | Resp 18 | Ht 1.702 m (5' 7") | Wt 106.595 kg (235 lb) | BMI 36.8 kg/m2 | SpO2 96% General Appearance: Well developed, obese,no acute distress, appears stated a ge Psych: Alert, appropriate, conversant Eyes: Pupils equal, anicteric, EOMI ENMT: pink oral mucosa, atraumatic, good dentition Resp: Clear, non-labored, no wheezing Cardiac: Regular rate and rhythm, no murmurs, gallops or rubs. No edema. No jugular venous distension. Normal pulses throughout without carotid bruit. No LE varicosities GI: Soft, active bowel sounds, non-tender, non-distended, no hepatome ruthy Skin: Warm, no jaundice or rashes Neurology No focal deficits, moves all extremities, no aphasia Musculoskeletal: Stable gait, ROM intact, no clubbing or cyanosis Heme/Lymph/Immuno No petechiae, or lymphadenopathy Procedure Site: Left groin: ecchymosis on left lower abdomen: soft, mildly tende r, no hematoma, no bruit Gloria laboratory findings during this hospitalization: Most Recent Result within the last 7 days Lab Units 03/03/14 0405 HEMOGLOBIN g/dL 13.0 HEMATOCRIT % 37* WBC TH/uL 7.77 PLATELET COUNT TH/uL 165 Most Recent Result within the last 7 days Lab Units 03/03/14 0405 CREATININE mg/dL 0.8 BLOOD UREA NITROGEN mg/dL 10 POTASSIUM MEQ/L 4.2 MAGNESIUM mg/dL 1.6 THYROID STIMULATING HORMONE uIU/mL 2.61 CHOLESTEROL mg/dL 172 HDL CHOLESTEROL mg/dL 17* LDL CHOLESTEROL mg/dL Not Calc TRIGLYCERIDES mg/dL 1125* Discharge medications: Medication List START taking these medications glipiZIDE 10 MG tablet Commonly known as: GLUCOTROL 10 mg, Oral, 2 times daily before meals insulin NPH 100 unit/mL injection Commonly known as: HumuLIN,NovoLIN 30 Units, Subcutaneous, Nightly lisinopril 10 MG tablet Commonly known as: PRINIVIL,ZESTRIL 10 mg, Oral, Daily metFORMIN 1000 MG tablet Commonly known as: GLUCOPHAGE 1,000 mg, Oral, 2 times daily with meals nitroglycerin 0.4 MG SL tablet Commonly known as: NITROSTAT 0.4 mg, Sublingual, Every 5 min PRN pantoprazole 40 MG tablet Commonly known as: PROTONIX 40 mg, Oral, Every morning before breakfast pravastatin 80 MG tablet Commonly known as: PRAVACHOL 80 mg, Oral, Nightly CONTINUE taking these medications ALPRAZolam 0.5 MG tablet Commonly known as: XANAX 0.5 mg, Oral, 3 times daily PRN aspirin 81 MG chewable tablet 81 mg, Oral, Daily carvedilol 6.25 MG tablet Commonly known as: COREG 6.25 mg, Oral, 2 times daily clopidogrel 75 mg tablet Commonly known as: PLAVIX 75 mg, Oral, Daily fenofibrate 54 MG tablet Commonly known as: TRICOR 43 mg, Oral, Daily HYDROcodone-acetaminophen 7.5-325 mg per tablet Commonly known as: NORCO 1 tablet, Oral, Every 8 hours PRN STOP taking these medications atorvastatin 40 MG tablet Commonly known as: LIPITOR famotidine 40 MG tablet Commonly known as: PEPCID losartan 25 MG tablet Commonly known as: COZAAR Where to Get Your Medications These are the prescriptions that you need to picker. You may get the following medications from any pharmacy - glipiZIDE 10 MG tablet - insulin NPH 100 unit/mL injection - lisinopril 10 MG tablet - metFORMIN 1000 MG tablet - nitroglycerin 0.4 MG SL tablet - pantoprazole 40 MG tablet - pravastatin 80 MG tablet Discharge problem list: Active Hospital Problems Diagnosis SNOMED CT(R) Date Noted STEMI (ST elevation myocardial infarction) ACUTE ST SEGMENT ELEVATION MYOCAR DIAL INFARCTION 03/02/2014 Resolved Hospital Problems Diagnosis SNOMED CT(R) Date Noted Date Resolved No resolved problems to display. Procedures performed during this hospitalization: Coronary Angiogram/PCI/ANNA 03/02/2014 IMPRESSIONS: 1. There is 2-vessel CAD in this right dominant system. The left main is normal. The LAD has a 50% proximal and a long 60-70% mid lesion. The LCx supplies a single moderate sized OM1. The previously placed OM1 BMS is widely patent. The dominant RCA has moderate diffuse disease in its mid portion and is totally occluded distally (culprit lesion) with moderate thrombus and YOAN 0 distal flow. 2. Successful PTCA and ANNA x 1 to the distal RCA culprit lesion RECOMMENDATIONS: 1. ASA 81 mg QD 2. 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 High dose statin for secondary prevention 4. Carvedilol as tolerated post PA 5. Echo in 24-48 hours 6. MPI study in 4 weeks to assess significance of residual LAD disease, which is amenable to PCI if necessary Echocardiogram 03/02/2014 CONCLUSIONS: 1) Mildly reduced left ventricular systolic function, with an estimated ejection fraction of 45%. 2) Inferior and inferolateral akinesis. 3) Mild right ventricular dilatation with moderately reduced systolic function. 4) No significant valvular abnormalities. Condition at discharge: Good Disposition: Home Activity limitations: No lifting greater than 10 pounds for 1 week Unable to afford Cardiac Rehab: discussed need to gradually increase physical ac tivity; starting with walking in cool area (home or gym or mall) 10 - 15 minutes to start gradually increasing to a goal of 30 minutes daily of walking. Diet: Heart healthy diet: Carb controlled: discussed importance of carb control to no more than 45-60gm of carb/meal with lean protein with each meal; sodium li mitation to 2gm or less. Follow up: Primary care provider in 2 week(s) [facility] in one week: 03/16 at 10:00am with Dr. Morin Set up outpatient cardiac rehabilitation through [facility]: likely financia lly prohibitive Lab testing to be completed after discharge: BMP in 2 week(s) Cholesterol profile in 8 week(s) HgA1C in 3 month(s) AST, ALT in 8 week(s) Discharge coordination time: Greater than 30 minutes. We appreciate the opportunity to have participated in this patient's care. Bill se do not hesitate to contact us at [phone] should you have any questions c oncerning this patient's care. Electronically signed by Hailee Ku 03/06/2014 9:38 AM documented in this encounter Discharge Instructions * Attachments The following attachments cannot be sent through Care Everywhere.* WHAT IS TYPE 2 DIABETES? ([place]) documented in this encounter Medications at Time of Discharge Start Date End Date Medication Sig Dispensed Refills ALPRAZolam (XANAX) 0.5 MG Take 0.5 mg 0 tablet by mouth 3 (three) times a day as needed for sleep. 08/29/2013 ALPRAZolam (XANAX) 1 MG take 1 tablet 1 0 tablet (1MG) by oral route every 6 hoursPRN for anxiety aspirin 81 MG chewable Chew 81 mg 0 tablet daily. 07/25/2013 aspirin 81 MG chewable chew 1 tablet 30 4 tablet (81MG) by oral route every day 03/06/2014 carvedilol (COREG) 6.25 Take 1 tablet 60 tablet 6 MG tabletIndications: (6.25 mg hypertension total) by mouth 2 (two) times a day. 08/16/2011 carvedilol (COREG) 6.25 take 1 tablet 60 11 MG tablet (6.25MG) by oral route 2 times every day with food 03/06/2014 clopidogrel (PLAVIX) 75 Take 1 tablet 30 tablet 11 mg tabletIndications: (75 mg total) acute coronary syndrome, by mouth acute ST elevation daily. myocardial infarction 08/29/2013 clopidogrel (PLAVIX) 75 take 4 30 11 mg tablet tablets(300MG ) by oral route now, then take 1 tablet (75MG) every day 03/06/2014 fenofibrate (TRICOR) 54 Take 1 tablet 30 tablet 6 MG tabletIndications: (54 mg total) hypertriglyceridemia by mouth daily. 01/15/2014 fenofibrate micronized take 1 30 1 (ANTARA) 43 MG capsule capsule (43MG) by oral route every day 03/06/2014 glipiZIDE (GLUCOTROL XL) take 1 tablet 1 0 10 MG 24 hr tablet (10MG) by oral route every day with breakfast HYDROcodone-acetaminophen Take 1 tablet 0 (NORCO) 7.5-325 mg per by mouth tablet every 8 (eight) hours as needed for pain. 08/16/2011 HYDROcodone-acetaminophen take 1 tablet 90 0 (NORCO) 7.5-325 mg per by oral route tablet every 6 hours as needed for pain 03/06/2014 insulin NPH-insulin inject by 1 0 regular (HUMULIN 70/30) subcutaneous 100 unit/mL (70-30) route as per injection insulin protocol 03/06/2014 lisinopril take 1 tablet 1 0 (PRINIVIL,ZESTRIL) 10 MG (10MG) by tablet oral route every day 03/06/2014 metFORMIN (GLUCOPHAGE) take 1 tablet 1 0 1000 MG tablet (1000MG) by oral route 2 times every day with morning and evening meals 08/29/2013 nitroglycerin (NITROSTAT) place 1 1 0 0.4 MG SL tablet tablet (0.4MG) by sublingual route at the 1st sign of attack; may repeat every 5 min until relief; if pain persists after 3 tablets in 15 min, prompt medical attention is recommended 03/06/2014 pantoprazole (PROTONIX) take 1 tablet 1 0 40 MG tablet (40MG) by oral route every day 03/06/2014 pravastatin (PRAVACHOL) take 1 tablet 1 0 80 MG tablet (80MG) by oral route every day 10/25/2012 traMADol (ULTRAM) 50 mg Take by 30 0 tablet mouth. 03/06/2014 03/06/2015 glipiZIDE (GLUCOTROL) 10 Take 1 tablet 30 tablet 6 MG tabletIndications: (10 mg total) type 2 diabetes mellitus by mouth 2 (two) times a day before breakfast and dinner. 03/06/2014 03/06/2015 insulin NPH Inject 30 10 mL 6 (HUMULIN,NOVOLIN) 100 Units under unit/mL the skin injectionIndications: nightly. type 2 diabetes mellitus 03/05/2014 03/05/2015 lisinopril Take 1 tablet 30 tablet 6 (PRINIVIL,ZESTRIL) 10 MG (10 mg total) tabletIndications: by mouth hypertension daily. 03/06/2014 03/06/2015 metFORMIN (GLUCOPHAGE) Take 1 tablet 60 tablet 6 1000 MG (1,000 mg tabletIndications: type 2 total) by diabetes mellitus mouth 2 (two) times a day with meals. 03/05/2014 03/05/2015 nitroglycerin (NITROSTAT) Place 1 25 tablet 3 0.4 MG SL tablet (0.4 tabletIndications: angina mg total) under the tongue every 5 (five) minutes as needed for chest pain. 03/05/2014 03/05/2015 pantoprazole (PROTONIX) Take 1 tablet 30 tablet 6 40 MG tabletIndications: (40 mg total) heartburn by mouth every morning before breakfast. 03/05/2014 03/05/2015 pravastatin (PRAVACHOL) Take 1 tablet 30 tablet 6 80 MG tabletIndications: (80 mg total) atherosclerotic by mouth cardiovascular disease nightly. 12/30/2012 02/10/2015 ALPRAZolam (XANAX) 1 MG TAKE 1 TABLET 60 0 tablet 3 TIMES DAILY NEEDED. MAY CAUSE DROWSINESS. 04/16/2013 02/10/2015 atorvastatin (LIPITOR) 40 TAKE 1 TABLET 90 0 MG tablet DAILY AT BEDTIME. 01/15/2014 02/10/2015 atorvastatin (LIPITOR) 40 take 1 tablet 30 1 MG tablet (40MG) by oral route every day 07/25/2013 02/10/2015 atorvastatin (LIPITOR) 40 take 1 tablet 30 5 MG tablet (40MG) by oral route every day 04/23/2013 02/10/2015 BYSTOLIC 5 mg tablet TAKE 1 TABLET 28 0 DAILY 06/16/2011 02/10/2015 carvedilol (COREG) 6.25 take 1 tablet 60 11 MG tablet (6.25MG) by oral route 2 times every day with food 09/17/2012 02/10/2015 cetirizine (ZYRTEC) 10 MG TAKE 1 TABLET 30 0 tablet DAILY. 08/29/2013 02/10/2015 famotidine (PEPCID) 40 MG take 1 tablet 30 11 tablet (40MG) by oral route every day at bedtime 04/01/2013 02/10/2015 fenofibrate (TRIGLIDE) TAKE 1 TABLET 30 0 160 MG tablet DAILY. 02/10/2015 fenofibrate micronized take 1 1 0 (ANTARA) 43 MG capsule capsule (43MG) by oral route every day 05/15/2013 02/10/2015 HYDROcodone-acetaminophen TAKE ONE 90 0 (NORCO) 7.5-325 mg per TABLET EVERY tablet 8 HOURS NEEDED FOR PAIN 06/16/2011 02/10/2015 HYDROcodone-acetaminophen take 1 tablet 90 0 (NORCO) 7.5-325 mg per by oral route tablet every 6 hours as needed for pain 06/16/2011 02/10/2015 ibuprofen (ADVIL,MOTRIN) take 1 tablet 90 3 600 MG tablet (600MG) by oral route every day with food PRN 08/16/2011 02/10/2015 ibuprofen (ADVIL,MOTRIN) take 1 tablet 90 3 800 MG tablet (800MG) by oral route 3 times every day with food 04/23/2013 02/10/2015 JANUMET XR 100-1,000 mg TAKE 1 TABLET 28 0 24 hr tablet DAILY 09/17/2012 02/10/2015 LEGACY MED TAKE 1 TABLET 90 0 3 TIMES DAILY NEEDED. 10/07/2012 02/10/2015 LEGACY MED TAKE 1 30 0 CAPSULE DAILY. 08/29/2013 02/10/2015 losartan (COZAAR) 25 MG take 1 tablet 1 0 tablet (25MG) by oral route every day 08/29/2013 02/10/2015 metFORMIN (GLUCOPHAGE) take 1 tablet 60 5 500 MG tablet (500MG) by oral route 2 times every day with morning and evening meals 07/25/2013 02/10/2015 metFORMIN (GLUCOPHAGE) take 1 tablet 60 5 500 MG tablet (500MG) by oral route 2 times every day with morning and evening meals 02/28/2013 02/10/2015 metFORMIN (GLUCOPHAGE-XR) TAKE 1 TABLET 30 0 500 MG ER 24 hr tablet DAILY 08/16/2011 02/10/2015 simvastatin (ZOCOR) 20 MG take 1 tablet 30 11 tablet (20MG) by oral route every day in the evening 06/16/2011 02/10/2015 simvastatin (ZOCOR) 20 MG take 1 tablet 30 11 tablet (20MG) by oral route every day in the evening 08/29/2013 02/10/2015 sucralfate (CARAFATE) 1 take 1 tablet 1 0 gram tablet (1G) by oral route 4 times every day on an empty stomach 1 hour before meals and at bedtime 07/25/2013 02/10/2015 ticagrelor (BRILINTA) 90 take 1 tablet 60 5 mg Tab tablet (90MG) by oral route 2 times every day 03/01/2012 02/10/2015 triamcinolone (KENALOG) APPLY 15 0 0.5 % cream SPARINGLY AND MASSAGE IN TWICE DAILY. 02/03/2013 02/10/2015 VITAMIN D2 50,000 unit TAKE 1 4 0 capsule CAPSULE WEEKLY. documented as of this encounter Progress Notes * Radha Chan, DRY STARCH OPERATOR - 03/06/2014 3:08 PM CDT Received a call from ZULY Carrillo to assist with d/c medications. ZULY reviewed shahla rt, spoke with RN, and met with pt to review Medication Assistance Program(MAP). Pt informed SW he was told that he would be "walking out of the hospital with e very medication" he needed because not having his medications is what caused him to be here in the hospital. SW informed pt she would fill as many scripts possi ble under the program. Pt verbally acknowledged program is 1x only assistance. Pt replied "I will not n eed your assistance again". Pt states he has a PCP in [facility] [place]. Pt states hi s Medicaid application is pending. MAP filled ALL 10 scripts for pt: Carvedilol 6.25 #60, Clopidogrel 75mg #30, Fen ofibrate 54mg #30, Insulin NPH #1 vial, Lisinopril 10mg #30, Metformin 100mg #60 , Nitroglycerin 0.4mg #25, Pravastatin 80mg #30, Pantoprazole 40mg #30, and Glip izide 5mg #60. SW provided medications to pt and updated RN. Pt expressed no other questions or concerns. * Megha Portillo MD - 03/06/2014 9:23 AM CDT Endocrinology Progress Note Giacomo Traylor Date of Admission: 03/02/2014 Impression: 1.T2DM, uncontrolled, Hb A1C 15.5% 2. CAD 3. STEMI s/p ANGLESMITH to RCA 4. Dyslipidemia 5. HTN 6. Obesity Recommendations/Plan: No change to discharge regimen - Given his financial situations I would recommend the following regimen for dis charge . NPH to 30 units SQ HS. Metformin 1 gram bid. Glipizide 10 mg bid. No Humalog SSI for discharge He has been provided with meter and it important that he work on lifestyle mo dification to help with weight loss. Continue fenofibrate and statin for dyslipidemia. Establish care with a physicia n post discharge. I will follow while hospitalized. __ Subjective: Giacomo Traylor is a 48 y.o. male. No acute events overnight. No hypoglycem ic episodes.Did not go home for unclear reasons. Moved out of ICU. Did not get N PH 30 units last night as meds were never released . Chem panel not done. Objective: BP 115/65 | Pulse 63 | Temp(Src) 36.3 C (97.4 F) (Oral) | Resp 18 | Ht 1.702 m (5' 7") | Wt 106.595 kg (235 lb) | BMI 36.8 kg/m2 | SpO2 96% I/O Intake/Output Summary (Last 24 hours) at 03/06/14 0923 Last data filed at 03/06/14 0900 Gross per 24 hour Intake 960 ml Output 0 ml Net 960 ml Physical Examination: GEN: Alert, oriented, no apparent distress Labs: Results for GIACOMO TRAYLOR ( ) as of 03/06/2014 09:23 Ref. Range 03/05/2014 07:33 03/05/2014 12:29 03/05/2014 19:11 03/05/2014 21:07 03/06 08:09 Glucose POC Latest Range: 70-100 mg/dL 155 (H) 111 (H) 146 (H) 184 (H) 216 (H) Most Recent Result within the last 7 days Lab Units 03/03/14 0405 WBC TH/uL 7.77 HEMOGLOBIN g/dL 13.0 HEMATOCRIT % 37* PLATELET COUNT TH/uL 165 Most Recent Result within the last 7 days Lab Units 03/03/14 0405 03/02/14 2210 SODIUM MEQ/L 133 136 POTASSIUM MEQ/L 4.2 4.1 CHLORIDE MEQ/L 102 103 CARBON DIOXIDE MEQ/L 25 22 BLOOD UREA NITROGEN mg/dL 10 9 CREATININE mg/dL 0.8 0.7 CALCIUM mg/dL 8.2* 7.9* ALBUMIN g/dL 3.2* -- PROTEIN TOTAL SERUM g/dL 6.2 -- ALKALINE PHOSPHATASE IU/L 125 -- ALANINE AMINOTRANSFERASE IU/L 56 -- ASPARTATE AMINOTRANSFERASE IU/L 102* -- GLUCOSE mg/dL 287* 240* Most Recent Result within the last 7 days Lab Units 03/03/14 0405 THYROID STIMULATING HORMONE uIU/mL 2.61 T4 FREE ng/dL 1.2 Most Recent Result within the last 7 days Lab Units 03/03/14 0405 CHOLESTEROL mg/dL 172 TRIGLYCERIDES mg/dL 1125* HDL CHOLESTEROL mg/dL 17* LDL CHOLESTEROL mg/dL Not Calc Meds aspirin 81 mg Oral Daily carvedilol 6.25 mg Oral BID clopidogrel 75 mg Oral Daily fenofibrate 160 mg Oral QPM glipiZIDE 10 mg Oral BID AC heparin (porcine) 5,000 Units Subcutaneous Q8H insulin lispro 3-18 Units Subcutaneous 4 times daily before meals and night ly insulin NPH 30 Units Subcutaneous Nightly lisinopril 10 mg Oral Daily metFORMIN 1,000 mg Oral BID with meals pantoprazole 40 mg Oral QAM AC pravastatin 80 mg Oral Nightly IV MEDS Prnacetaminophen, acetaminophen, aluminum-magnesium hydroxide-simethi cone, atropine, dextrose, docusate sodium, glucagon, glucagon, miconazole nitrat e, nitroglycerin, ondansetron, oxyCODONE-acetaminophen, polyethylene glycol, kwadwo yvinyl alcohol, zolpidem Signed Electronically by Megha Portillo 03/06/2014 9:23 AM * Hailee Ku RN FLOOR SANDING MACHINE OPERATOR - 03/05/2014 1:11 PM CDT [facility] Comprehensive Progress Note Name: Giacomo Salinaskris CPI: [id number] Date: 03/05/2014 Time: 1:12 PM Presenting Complaint: chest pain Interval HPI: Sitting up in bed. Denies chest pain, shortness of breath, palpitations. Some te nderness left lower abdomen and groin (procedure site). He is worried about his ability to pay for his medications on discharge with no insurance. Active Problems: STEMI (ST elevation myocardial infarction) Clinical status: Blood pressure: Improved Chest Pain: Improved Dyspnea: Improved IMPRESSION and PLAN: -STEMI s/p PTCA and ANNA x 1 to the distal RCA History of CAD with previous BMS to OM1 and current cath showing proximal and mi d-LAD disease : recommending MPI in 4 weeks to assess -DM, uncontrolled Hgb A1c > 15 : endo on board: have changed insulin regimen to make is more affordable to patient with NPH qd and added orals -Hypertension: controlled -Dyslipidemia with significant hypertriglyceridemia : switch to pravastatin whic h is the least costly -[place], not using CPAP at home encouraged nightly use of c-pap Social workers are working to help with medication costs. Quality checklist Beta blockers post PA: yes Aspirin in patients with CAD: yes; 81 mg Clopidogrel/Ticagrelor: yes Statin: yes OBJECTIVE Vital signs: [range past 24 hrs] most recent Temp: [36.2 C (97.1 F)-36.9 C (98.4 F)] 36.6 C (97.9 F) Pulse: [59-73] 67 Resp: [14-18] 14 BP: (101-135)/(58-84) 135/84 mmHg Intake/Output Summary (Last 24 hours) at 03/05/14 1312 Last data filed at 03/05/14 0500 Gross per 24 hour Intake 720 ml Output 1225 ml Net -505 ml Body mass index is 38.15 kg/(m^2). Physical exam: BP 135/84 | Pulse 67 | Temp(Src) 36.6 C (97.9 F) (Oral) | Resp 14 | Ht 1.702 m (5' 7") | Wt 110.5 kg (243 lb 9.7 oz) | BMI 38.15 kg/m2 | SpO2 97% General Appearance: Well developed, obese, no acute distress, appears stated age Psych: Alert, appropriate, conversant Eyes: Pupils equal, anicteric, EOMI ENMT: pink oral mucosa, atraumatic, good dentition Resp: Clear, non-labored, no wheezing Cardiac: Regular rate and rhythm, no murmurs, gallops or rubs. No edema. No jugular venous distension. Normal pulses throughout without carotid bruit. No LE varicosities GI: Soft, active bowel sounds, non-tender, non-distended, no hepatome ruthy Skin: Warm, no jaundice or rashes Neurology No focal deficits, moves all extremities, no aphasia Musculoskeletal: Stable gait, ROM intact, no clubbing or cyanosis Heme/Lymph/Immuno No petechiae, or lymphadenopathy Procedure site: Left groin ecchymotic, no hematoma, no drainage, no bruit Scheduled medications: aspirin 81 mg Oral Daily carvedilol 6.25 mg Oral BID clopidogrel 75 mg Oral Daily fenofibrate 160 mg Oral QPM glipiZIDE 10 mg Oral BID AC heparin (porcine) 5,000 Units Subcutaneous Q8H insulin lispro 3-18 Units Subcutaneous 4 times daily before meals and night ly insulin NPH 30 Units Subcutaneous Nightly lisinopril 10 mg Oral Daily metFORMIN 1,000 mg Oral BID with meals pantoprazole 40 mg Oral QAM AC pravastatin 80 mg Oral Nightly Gloria labs: Most Recent Result within the last 7 days Lab Units 03/03/14 0405 03/02/14 2210 CREATININE mg/dL 0.8 0.7 BLOOD UREA NITROGEN mg/dL 10 9 Most Recent Result within the last 7 days Lab Units 03/03/14 0405 03/03/14 0120 03/02/14 2210 TROPONIN ng/mL 21.00* 30.30* 26.30* Most Recent Result within the last 7 days Lab Units 03/03/14 0405 03/02/14 2210 POTASSIUM MEQ/L 4.2 4.1 GLUCOSE mg/dL 287* 240* CHOLESTEROL mg/dL 172 -- TRIGLYCERIDES mg/dL 1125* -- HDL CHOLESTEROL mg/dL 17* -- LDL CHOLESTEROL mg/dL Not Calc -- HEMOGLOBIN A1C % -- 15.8* ASPARTATE AMINOTRANSFERASE IU/L 102* -- ALANINE AMINOTRANSFERASE IU/L 56 -- Most Recent Result within the last 7 days Lab Units 03/03/14 0405 HEMOGLOBIN g/dL 13.0 WBC TH/uL 7.77 PLATELET COUNT TH/uL 165 Note created by: Hailee Ku RN FLOOR SANDING MACHINE OPERATOR Hailee Ku 03/05/2014 1:12 PM * Hailee Penaloza, PT - 03/05/2014 11:20 AM CDT 03/05/14 1101 Visit Info Initial PT Visit On 03/05/14 Assessed for Rehab Yes Referral Reason s/p STEMI and uncontrolled diabetes Patient/Family Reports pnt notes mult sites of pain, primarily over L side of jennifer dy and in region of hematoma over LLQ. Notes blurring of vision which makes basim ding difficult. Denies SOB or dizziness. PT Received On 03/05/14 Precautions Fall Risk Yes Other cardiac precautions Home Living Type of Home House Home Layout One level (no stairs per pnt) Lives With Daughter;Other (Comment) (and grandsons) Home Assistive Device None Additional Comments pnt states he enjoys spending time w/grandsons; wants to genie e them to park and community gym to accomplish his exercise goals Prior Function Level of [place] Independent with ADLs;Independent with functional transfer s;Independent with ambulation;Independent with homemaking Receives Help From Other (Comment) (daughter avail for assist when at home) Vocational Other (Comment) (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, 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) Leisure Hobbies-yes (Comment) Comments pnt used to "work out" at gym but no longer; is inspired to return to a ctivity to decrease weight (patient goal: lose 100 pounds w/in 1 year) Pain Assessment Pain Score 4 (at rest; increases to 10/10 with certain mvmts) Pain Type Acute pain Pain Location Abdomen (extends to anterior hip) Pain Orientation Left;Lower Patient exhibits Grimacing Pain Descriptors Sharp Pain Frequency Continuous Pain Intervention(s) Ambulation/increased activity;Repositioned;Other (Comment); Warm pack (discussed alternative mvmt patterns and graded activity) Response to Intervention Other (see note) (resting in bed at end of session) Multiple Pain Sites Yes Nurse Notified? Yes Vital Signs SpO2 97 % (dec to 93% w/ambulation) Oxygen Source room air Pulse 67 (inc to 78 bpm w/ambulation) Patient Position sitting Cognition Overall Cognitive Status WFL Arousal/Alertness Appropriate responses to stimuli Attention Span Appears intact Memory Appears intact Orientation Level Oriented to person;Oriented to place;Oriented to time;Oriented to situation;Other (Comment) (spoke @ length re current diagnoses and rx plan) Following Commands Follows all commands and directions without difficulty Communication Communication No Limitation Bed Mobility Rolling Modified independent Supine to Sit Modified independent;HOB elevated (uses semi-sidelying to sit method) Sit to Supine Min assist to left;HOB elevated;Bed Rail (due to pain) Transfers Assistive Device None Sit to Stand Transfers Modified independent (except from lower surface, then CGA) Stand to Sit Transfers Modified independent Bed to Chair Modified independent Stand Pivot Transfers Modified independent Gait Gait Distance (Feet) 450 (twice around CCU) Assistive Device None Gait Level Surface Assistance Modified independent Pattern Decreased [place];Other (comment) (due to pain) Balance Sitting Static 5 Standing Static 5 Standing Dynamic 5 Activity Tolerance Activity Tolerance good (only limited by pain (lower chest and back pain w/gait)) Sensation Light Touch Intact RLE Assessment RLE Assessment WFL LLE Assessment LLE Assessment WFL Assessment Learning Barriers None Response to Treatment Good;Other (see note) (extended time spent in patient education (see tab)) Problem List Gait;Pain;Precaution education;Other (see note) (risk for further debility if no change in prior activity) Timeframe Timeframe STG 2 days Timeframe LTG 4 days Bed Mobility Goals Bed Transfer STG Goal Status New goal Bed Mobility STG Modified independent;Other (see note) (for sit to supine) Transfer Goals Transfer STG Goal Status New goal Transfer STG Modified independent (from lower surface) Other Goals Other Goal 1 STG: verbalize understanding of principles for exercise in DM mgmt Other Goal 2 LTG: consistent aerobic activity 30 min or >, 5 - 7 x per week to assist in mgmt of DM Plan Pt/Family Goal other (lose 100 pounds) Pt/Family involved in Plan of Care Yes (extensively (see Patient Education tab)) Treatment/Interventions Patient/family training;Progressive Mobility;Functional transfer training;Gait training PT Frequency 5-7x/wk (while in-house to continue pnt ed) Recommendation Plan Continued PT (doubt need for formal PT F/U once D/C but call if ???) Equipment Recommended (none at this time) * Megha Portillo MD - 03/05/2014 11:02 AM CDT Endocrinology Progress Note Giacoom Traylor Date of Admission: 03/02/2014 Impression: 1.T2DM, uncontrolled, Hb A1C 15.5% 2. CAD 3. STEMI s/p ANGLESMITH to RCA 4. Dyslipidemia 5. HTN 6. Obesity Recommendations/Plan: - Given his financial situations I would recommend the following regimen for dis charge . Change NPH to 30 units SQ HS. D/C Humalog Start metformin 1 gram bid.Check BMP today to ensure creatinine normal. Start Glipizide 10 mg bid. He has been provided with meter and it important that he work on lifestyle mo dification to help with weight loss. Continue fenofibrate and statin for dyslipidemia. Establish care with a physicia n post discharge. I will follow while hospitalized. __ Subjective: Giacomo Traylor is a 48 y.o. male. No acute events overnight. No hypoglycem ic episodes. BS improving. Reports his chest is less tight now. No breathing iss ues. No GI symptoms. Still ahs some disconfirt in his left groin. Issue at disch arge is that he is self pay and given the number of medications that he has to t carlos they have to be affordable. Objective: BP 135/84 | Pulse 60 | Temp(Src) 36.6 C (97.9 F) (Oral) | Resp 14 | Ht 1.702 m (5' 7") | Wt 110.5 kg (243 lb 9.7 oz) | BMI 38.15 kg/m2 | SpO2 97% I/O Intake/Output Summary (Last 24 hours) at 03/05/14 1102 Last data filed at 03/05/14 0500 Gross per 24 hour Intake 960 ml Output 1225 ml Net -265 ml Physical Examination: GEN: Alert, oriented, no apparent distress RESP: Clear to auscultation bilaterally CVS: Regular rate and rhythm, S1 S2 normal, ABDOMEN: Soft, non tender bowel sounds present EXT: No edema Labs: Results for GIACOMO TRAYLOR ( ) as of 03/05/2014 11:00 Ref. Range 03/04/2014 08:01 03/04/2014 12:08 03/04/2014 17:38 03/04/2014 20:44 03/05 00:10 03/05/2014 03:29 03/05/2014 07:33 Glucose POC Latest Range: 70-100 mg/dL 214 (H) 233 (H) 209 (H) 209 (H) 109 (H) 1 18 (H) 155 (H) Most Recent Result within the last 7 days Lab Units 03/03/14 0405 WBC TH/uL 7.77 HEMOGLOBIN g/dL 13.0 HEMATOCRIT % 37* PLATELET COUNT TH/uL 165 Most Recent Result within the last 7 days Lab Units 03/03/14 0405 03/02/14 2210 SODIUM MEQ/L 133 136 POTASSIUM MEQ/L 4.2 4.1 CHLORIDE MEQ/L 102 103 CARBON DIOXIDE MEQ/L 25 22 BLOOD UREA NITROGEN mg/dL 10 9 CREATININE mg/dL 0.8 0.7 CALCIUM mg/dL 8.2* 7.9* ALBUMIN g/dL 3.2* -- PROTEIN TOTAL SERUM g/dL 6.2 -- ALKALINE PHOSPHATASE IU/L 125 -- ALANINE AMINOTRANSFERASE IU/L 56 -- ASPARTATE AMINOTRANSFERASE IU/L 102* -- GLUCOSE mg/dL 287* 240* Most Recent Result within the last 7 days Lab Units 03/03/14 0405 THYROID STIMULATING HORMONE uIU/mL 2.61 T4 FREE ng/dL 1.2 Most Recent Result within the last 7 days Lab Units 03/03/14 0405 CHOLESTEROL mg/dL 172 TRIGLYCERIDES mg/dL 1125* HDL CHOLESTEROL mg/dL 17* LDL CHOLESTEROL mg/dL Not Calc Meds aspirin 81 mg Oral Daily carvedilol 6.25 mg Oral BID clopidogrel 75 mg Oral Daily fenofibrate 160 mg Oral QPM glipiZIDE 10 mg Oral BID AC heparin (porcine) 5,000 Units Subcutaneous Q8H insulin lispro 3-18 Units Subcutaneous 4 times daily before meals and night ly insulin NPH 30 Units Subcutaneous Nightly lisinopril 10 mg Oral Daily metFORMIN 1,000 mg Oral BID with meals pantoprazole 40 mg Oral QAM AC pravastatin 80 mg Oral Nightly IV MEDS Prnacetaminophen, acetaminophen, aluminum-magnesium hydroxide-simethi cone, atropine, dextrose, dextrose, docusate sodium, glucagon, glucagon, miconaz ole nitrate, nitroglycerin, oxyCODONE-acetaminophen, polyethylene glycol, zolpid em Signed Electronically by Megha Portillo 03/05/2014 11:02 AM * Leanne Beltran, DRY STARCH OPERATOR - 03/04/2014 4:16 PM CDT SW received referral from cards team to see pt as he does not have insurance and cannot afford his meds. Pt also has not been following up with any physician. SW met with pt, who was very abrupt with SW when answering questions. Pt says he lives with his dtr and her 2 young children. Pt's dtr works economics department chair as a FINANCING ANALYST. Pt has not worked in 8 months as he says he has been sick since that time. [facility] and while he drives, he says he continues to have difficult y getting into a primary care. Pt says he has money saved up that he has been li ving off. Pt will need Plavix, Lipitor, Tricor and Insulin when she leaves. Pt t ells me if his meds are not on the $4 list, he cannot afford them. Pt says he us ed to see a PCP at [facility] but could no longer see her after his insurance ended. Pt says he has also tried to go to [facility] but has been told they will not write him prescriptions. SW has two calls in to both facilities to find out their process of seeing self pay patients. has asked [facility] to see pt for meds. will follow up Regarding follow up. * Maci Flores, PT - 03/04/2014 3:59 PM CDT 03/04/14 2185 Visit Info PT Deferred On 03/04/14 Deferred comments Pt with online publisher, then up with nursing. Will follow a nd complete evlauation as able. * Megha Portillo MD - 03/04/2014 12:42 PM CDT Endocrinology Progress Note [facility] [place] Date of Admission: 03/02/2014 Impression: 1.T2DM, uncontrolled, Hb A1C 15.5% 2. CAD 3. STEMI s/p ANGLESMITH to RCA 4. Dyslipidemia 5. HTN 6. Obesity Recommendations/Plan: - Change NPH to 24 units Sq bid. - Change Humalog to 14 units sq ac and level 5 ssi ac/hs. - Will initiate metformin tomorrow morning @ 1000 mg bid. - He does understand needs better BS control which will be achieved by insulin a t this time. I will follow __ Subjective: Giacomo Traylor is a 48 y.o. male. No acute events overnight. No hypoglycem ic episodes. BS continue to be high which is expected. Still has some discomfort in neck and back as well as left groin. No breathing difficulty. NO n/v/ abdomi nal pain. Constipated. Echo with EF of 45 %. Met with diabetes ed and social wor ker. Objective: BP 117/69 | Pulse 67 | Temp(Src) 36.7 C (98.1 F) (Oral) | Resp 16 | Ht 1.702 m (5' 7") | Wt 110.5 kg (243 lb 9.7 oz) | BMI 38.15 kg/m2 | SpO2 96% I/O Intake/Output Summary (Last 24 hours) at 03/04/14 1242 Last data filed at 03/04/14 0900 Gross per 24 hour Intake 840 ml Output 1050 ml Net -210 ml Physical Examination: GEN: Alert, oriented, no apparent distress HEENT: No scleral icterus/pallor RESP: Clear to auscultation bilaterally CVS: Regular rate and rhythm, S1 S2 normal, no murmur ABDOMEN: Soft, non tender bowel sounds present EXT: No edema Labs: Results for GIACOMO TRAYLOR ( ) as of 03/04/2014 12:42 Ref. Range 03/03/2014 06:19 03/03/2014 07:41 03/03/2014 11:26 03/03/2014 13:08 03/03 18:25 03/03/2014 21:29 03/04/2014 08:01 03/04/2014 12:08 Glucose POC Latest Range: 70-100 mg/dL 324 (H) 258 (H) 277 (H) 222 (H) 165 (H) 2 07 (H) 214 (H) 233 (H) Most Recent Result within the last 7 days Lab Units 03/03/14 0405 WBC TH/uL 7.77 HEMOGLOBIN g/dL 13.0 HEMATOCRIT % 37* PLATELET COUNT TH/uL 165 Most Recent Result within the last 7 days Lab Units 03/03/14 0405 03/02/14 2210 SODIUM MEQ/L 133 136 POTASSIUM MEQ/L 4.2 4.1 CHLORIDE MEQ/L 102 103 CARBON DIOXIDE MEQ/L 25 22 BLOOD UREA NITROGEN mg/dL 10 9 CREATININE mg/dL 0.8 0.7 CALCIUM mg/dL 8.2* 7.9* ALBUMIN g/dL 3.2* -- PROTEIN TOTAL SERUM g/dL 6.2 -- ALKALINE PHOSPHATASE IU/L 125 -- ALANINE AMINOTRANSFERASE IU/L 56 -- ASPARTATE AMINOTRANSFERASE IU/L 102* -- GLUCOSE mg/dL 287* 240* Most Recent Result within the last 7 days Lab Units 03/03/14 0405 THYROID STIMULATING HORMONE uIU/mL 2.61 T4 FREE ng/dL 1.2 Most Recent Result within the last 7 days Lab Units 03/03/14 0405 CHOLESTEROL mg/dL 172 TRIGLYCERIDES mg/dL 1125* HDL CHOLESTEROL mg/dL 17* LDL CHOLESTEROL mg/dL Not Calc Meds aspirin 81 mg Oral Daily atorvastatin 80 mg Oral Nightly carvedilol 6.25 mg Oral BID clopidogrel 75 mg Oral Daily fenofibrate 160 mg Oral QPM heparin (porcine) 5,000 Units Subcutaneous Q8H insulin lispro 10 Units Subcutaneous TID AC insulin lispro 2-7 Units Subcutaneous 4 times daily before meals and nightl y insulin NPH 24 Units Subcutaneous BID AC losartan 25 mg Oral Daily pantoprazole 40 mg Oral QAM AC IV MEDS Prnacetaminophen, acetaminophen, aluminum-magnesium hydroxide-simethi cone, atropine, dextrose, docusate sodium, glucagon, glucagon, miconazole nitrat e, nitroglycerin, oxyCODONE-acetaminophen, polyethylene glycol, zolpidem Signed Electronically by Megha Portillo 03/04/2014 12:42 PM * Rosalva Riggs MD - 03/04/2014 8:21 AM CDT [facility] Comprehensive Progress Note Name: Giacomo Traylor CPI: [id number] Date: 03/04/2014 Time: 8:21 AM No chief complaint on file. Interval HPI: No chest discomfort, didn't sleep well overnight. Continues to complain of abdom inal pain at hematoma site. Active Problems: STEMI (ST elevation myocardial infarction) IMPRESSION and PLAN: STEMI s/p PTCA and ANNA x 1 to the distal RCA History of CAD with previous BMS to OM1 and current cath showing proximal and mi d-LAD disease DM, uncontrolled Hgb A1c > 15 Hypertension Dyslipidemia with significant hypertriglyceridemia [place], not using CPAP at home Will continue medical management with uptitrating beta aaron as tolerated. ECH O reviewed, mildly reduced LVEF and RV systolic function. Will add on TRINO given history of DM, Will need DAPT, switched to Plavix yesterday for at least 1 year given ANNA and follow-up for LAD lesions. PT eval. ENDO consult, appreciate rec s. Fasting glucose very elevated this am so will likely need adjustment to insul in regimen. Transfer to floor today. Camilo Parmar MD, MSc I have seen and examined this patient. I agree with the Fellow/Resident/CITLALI not e. I reviewed the clinical course, results and I agree with the plan of care as detailed. Below are my additional comments if any. To telem today. Need COUNSELOR MARRIAGE AND FAMILY to assist team with meds/follow up options. Pt in [facility]; ?health care options in that area; ?prescription coverage options? Pt states has no insurance and does not qualify for Medicaid. His risk of readm ission is high if outpatient care and follow up not established. Rosalva Riggs MD [facility] OBJECTIVE Vital signs: [range past 24 hrs] most recent Temp: [36.7 C (98 F)-37.3 C (99.1 F)] 36.7 C (98.1 F) Pulse: [57-74] 68 Resp: [12-25] 25 BP: (100-128)/(49-75) 101/67 mmHg Intake/Output Summary (Last 24 hours) at 03/04/14 0821 Last data filed at 03/04/14 0630 Gross per 24 hour Intake 480 ml Output 1050 ml Net -570 ml Body mass index is 38.15 kg/(m^2). Physical exam: BP 101/67 | Pulse 68 | Temp(Src) 36.7 C (98.1 F) (Oral) | Resp 25 | Ht 1.702 m (5' 7") | Wt 110.5 kg (243 lb 9.7 oz) | BMI 38.15 kg/m2 | SpO2 94% General Appearance: Well developed, no acute distress Psych: Alert, appropriate, conversant Eyes: Pupils equal, anicteric, EOMI ENMT: No thyromegaly, pink oral mucosa, Paredes 4 tongue position Resp: Clear, non-labored, no wheezing Cardiac: Regular rate and rhythm, no murmurs, gallops or rubs. No edema. No jugular venous distension. Normal pulses throughout. No LE varicosities. L access site with no bruit, hematoma GI: Soft, + hematoma LLQ with TTP non-distended Skin: Warm, no jaundice or rashes Neurology No focal deficits, moves all extremities, no aphasia Scheduled medications: aspirin 81 mg Oral Daily atorvastatin 80 mg Oral Nightly carvedilol 3.125 mg Oral BID clopidogrel 75 mg Oral Daily famotidine 20 mg Oral BID fenofibrate 160 mg Oral QPM heparin (porcine) 5,000 Units Subcutaneous Q8H insulin lispro 10 Units Subcutaneous TID AC insulin lispro 2-7 Units Subcutaneous 4 times daily before meals and nightl y insulin NPH 24 Units Subcutaneous BID AC Infusion medications: Current rhythm: NSR Telemetry review: Normal Sinus Rhythm with PVC's Gloria labs: Most Recent Result within the last 7 days Lab Units 03/03/14 0405 03/02/14 2210 CREATININE mg/dL 0.8 0.7 BLOOD UREA NITROGEN mg/dL 10 9 Most Recent Result within the last 7 days Lab Units 03/03/14 0405 03/03/14 0120 03/02/14 2210 TROPONIN ng/mL 21.00* 30.30* 26.30* Most Recent Result within the last 7 days Lab Units 03/03/14 0405 03/02/14 2210 POTASSIUM MEQ/L 4.2 4.1 GLUCOSE mg/dL 287* 240* CHOLESTEROL mg/dL 172 -- TRIGLYCERIDES mg/dL 1125* -- HDL CHOLESTEROL mg/dL 17* -- LDL CHOLESTEROL mg/dL Not Calc -- HEMOGLOBIN A1C % -- 15.8* ASPARTATE AMINOTRANSFERASE IU/L 102* -- ALANINE AMINOTRANSFERASE IU/L 56 -- Most Recent Result within the last 7 days Lab Units 03/03/14 0405 HEMOGLOBIN g/dL 13.0 WBC TH/uL 7.77 PLATELET COUNT TH/uL 165 Coronary Angio 03/02 CORONARY ANGIOGRAPHY: The coronary circulation is right dominant. Left main: Normal. Proximal LAD: There was a 50 % stenosis. Mid LAD: There was a moderately long 60 % stenosis. Distal LAD: Normal. 1st diagonal: Normal. 2nd diagonal: Normal. Proximal circumflex: Normal. 1st obtuse marginal: There was a 0 % stenosis at the site of a prior stent. Proximal RCA: Angiography showed minor luminal irregularities. Mid RCA: There was a long 40 % stenosis. Distal RCA: There was a long 100 % stenosis. The lesion was associated with a moderate filling defect consistent with thrombus. There was YOAN grade 0 flow through the vessel (no flow), a large vascular territory distal to the lesion, and good collateral blood supply to the distal myocardium. Right PDA: Normal. Right posterolateral segment: Normal. The vessel was large sized. COMPLICATIONS: There were no complications. SUMMARY: -- 1ST LESION INTERVENTIONS: -- A drug-eluting stent was performed on the 100 % lesion in the distal RCA. Following intervention there was a 0 % residual stenosis. -- CASE ABSTRACT: -- 1. There is 2-vessel CAD in this right dominant system. The left main is normal. The LAD has a 50% proximal and a long 60-70% mid lesion. The LCx supplies a single moderate sized OM1. The previously placed OM1 BMS is widely patent. The dominant RCA has moderate diffuse disease in its mid portion and is totally occluded distally (culprit lesion) with moderate thrombus and YOAN 0 distal flow. 2. Successful PTCA and ANNA x 1 to the distal RCA culprit lesion IMPRESSIONS: 1. There is 2-vessel CAD in this right dominant system. The left main is normal. The LAD has a 50% proximal and a long 60-70% mid lesion. The LCx supplies a single moderate sized OM1. The previously placed OM1 BMS is widely patent. The dominant RCA has moderate diffuse disease in its mid portion and is totally occluded distally (culprit lesion) with moderate thrombus and YOAN 0 distal flow. 2. Successful PTCA and ANNA x 1 to the distal RCA culprit lesion RECOMMENDATIONS: 1. ASA 81 mg QD 2. 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 High dose statin for secondary prevention 4. Carvedilol as tolerated post PA 5. Echo in 24-48 hours 6. MPI study in 4 weeks to assess significance of residual LAD disease, which is amenable to PCI if necessary. 7. Patient needs a f/u appointment with [facility] (says he has had trouble following up in the past- reason unclear). ECHO 03/03/14 Technically difficult study. Optison was injected to enhance left ventricular jennifer rder definition. Mildly reduced left ventricular systolic function, with an estimated ejection fr action of 45%. Normal wall thickness. Regional wall motion abnormalities (see diagram). Mild left ventricular dilatation. Mild right ventricular dilatation with moderately reduced systolic function. Normal right and left atrial size. Likely moderate diastolic dysfunction - elevated mean LA pressure with reduced L V relaxation. Normal aortic valve without regurgitation. Normal mitral valve with trivial regurgitation. Normal pulmonic valve with trivial regurgitation. Normal tricuspid valve with trivial regurgitation. Unable to accurately estimate pulmonary artery pressure. No pericardial effusion. IVC is dilated and not responsive to inspiration indicating markedly elevated RA pressure. Normal size ascending aorta. No obvious intracardiac masses or thrombi. CONCLUSIONS: 1) Mildly reduced left ventricular systolic function, with an estimated ejection fraction of 45%. 2) Inferior and inferolateral akinesis. 3) Mild right ventricular dilatation with moderately reduced systolic function. 4) No significant valvular abnormalities. Camilo Parmar 03/04/2014 8:21 AM * Malini Mccracken MD - 03/03/2014 3:43 PM CDT POC glu > 180, ISS increased to level #3. Malini Mccracken MD, 03/03/2014 , 3:43 PM * Rosalva Riggs MD - 03/03/2014 8:47 AM CDT [facility] Comprehensive Progress Note Name: Giacomo Traylor CPI: [id number] Date: 03/03/2014 Time: 8:47 AM No chief complaint on file. Interval HPI: Patient reports that he continues to have chest discomfort (07/18) also complains of pain at groin site and LLQ. Active Problems: STEMI (ST elevation myocardial infarction) IMPRESSION and PLAN: STEMI s/p PTCA and ANNA x 1 to the distal RCA History of CAD with previous BMS to OM1 and current cath showing proximal and mi d-LAD disease DM, uncontrolled Hgb A1c > 15 Hypertension Dyslipidemia with significant hypertriglyceridemia [place], not using CPAP at home Will continue medical management with uptitrating meds as tolerated. Will need D APT for at least 1 year given ANNA and follow-up for LAD lesions. PT eval. Check TTE today. ENDO consult for DM and dyslipidemia. Will start on fibrate for hyper triglyceridemia. Encouraged use of CPAP, however patient doesn't believe he has [place] even though he and his son tell me it was found on a sleep study. Camilo Parmar MD, MSc I have seen and examined this patient. I agree with the Fellow/Resident/CITLALI not e. I reviewed the clinical course, results and I agree with the plan of care as detailed. Below are my additional comments if any. NSTEMI in setting of multiple unmodified risk factors including DM, htn, dyslipi demia, nicotine, [place]. Pt has CPAP. States his lack of insurance has been respo nsible for not being on meds or having physician f/u. Will consult COUNSELOR MARRIAGE AND FAMILY. >5 minute d/w pt about nicotine. Rosalva Riggs MD [facility] Staff: replace this line with: ".law" for attestation/critical care, etc d ocumentation. OBJECTIVE Vital signs: [range past 24 hrs] most recent Temp: [36.5 C (97.7 F)-36.7 C (98 F)] 36.7 C (98 F) Pulse: [56-73] 67 Resp: [11-21] 17 BP: (93-125)/(56-84) 113/60 mmHg Intake/Output Summary (Last 24 hours) at 03/03/14 0847 Last data filed at 03/03/14 0616 Gross per 24 hour Intake 1520 ml Output 975 ml Net 545 ml Body mass index is 38.15 kg/(m^2). Physical exam: BP 105/59 | Pulse 65 | Temp(Src) 36.7 C (98 F) (Oral) | Resp 15 | Ht 1.702 m (5' 7") | Wt 110.5 kg (243 lb 9.7 oz) | BMI 38.15 kg/m2 | SpO2 93% General Appearance: Well developed, no acute distress Psych: Alert, appropriate, conversant Eyes: Pupils equal, anicteric, EOMI ENMT: No thyromegaly, pink oral mucosa, Paredes 4 tongue position Resp: Clear, non-labored, no wheezing Cardiac: Regular rate and rhythm, no murmurs, gallops or rubs. No edema. No jugular venous distension. Normal pulses throughout. No LE varicosities. L access site with no bruit, hematoma GI: Soft, + hematoma LLQ with TTP non-distended Skin: Warm, no jaundice or rashes Neurology No focal deficits, moves all extremities, no aphasia Scheduled medications: aspirin 81 mg Oral Daily atorvastatin atorvastatin 80 mg Oral Nightly carvedilol carvedilol 3.125 mg Oral BID heparin (porcine) 5,000 Units Subcutaneous Q8H heparin (porcine) insulin glargine 5 Units Subcutaneous Nightly insulin lispro 1-6 Units Subcutaneous 4 times daily before meals and nightl y ticagrelor 90 mg Oral Q12H ECHO Infusion medications: Current rhythm: NSR Telemetry review: Normal Sinus Rhythm with PVC's Gloria labs: Most Recent Result within the last 7 days Lab Units 03/03/14 0405 03/02/14 2210 CREATININE mg/dL 0.8 0.7 BLOOD UREA NITROGEN mg/dL 10 9 Most Recent Result within the last 7 days Lab Units 03/03/14 0405 03/03/14 0120 03/02/14 2210 TROPONIN ng/mL 21.00* 30.30* 26.30* Most Recent Result within the last 7 days Lab Units 03/03/14 0405 03/02/14 2210 POTASSIUM MEQ/L 4.2 4.1 GLUCOSE mg/dL 287* 240* CHOLESTEROL mg/dL 172 -- TRIGLYCERIDES mg/dL 1125* -- HDL CHOLESTEROL mg/dL 17* -- LDL CHOLESTEROL mg/dL Not Calc -- HEMOGLOBIN A1C % -- 15.8* ASPARTATE AMINOTRANSFERASE IU/L 102* -- ALANINE AMINOTRANSFERASE IU/L 56 -- Most Recent Result within the last 7 days Lab Units 03/03/14 0405 HEMOGLOBIN g/dL 13.0 WBC TH/uL 7.77 PLATELET COUNT TH/uL 165 Coronary Angio 03/02 CORONARY ANGIOGRAPHY: The coronary circulation is right dominant. Left main: Normal. Proximal LAD: There was a 50 % stenosis. Mid LAD: There was a moderately long 60 % stenosis. Distal LAD: Normal. 1st diagonal: Normal. 2nd diagonal: Normal. Proximal circumflex: Normal. 1st obtuse marginal: There was a 0 % stenosis at the site of a prior stent. Proximal RCA: Angiography showed minor luminal irregularities. Mid RCA: There was a long 40 % stenosis. Distal RCA: There was a long 100 % stenosis. The lesion was associated with a moderate filling defect consistent with thrombus. There was YOAN grade 0 flow through the vessel (no flow), a large vascular territory distal to the lesion, and good collateral blood supply to the distal myocardium. Right PDA: Normal. Right posterolateral segment: Normal. The vessel was large sized. COMPLICATIONS: There were no complications. SUMMARY: -- 1ST LESION INTERVENTIONS: -- A drug-eluting stent was performed on the 100 % lesion in the distal RCA. Following intervention there was a 0 % residual stenosis. -- CASE ABSTRACT: -- 1. There is 2-vessel CAD in this right dominant system. The left main is normal. The LAD has a 50% proximal and a long 60-70% mid lesion. The LCx supplies a single moderate sized OM1. The previously placed OM1 BMS is widely patent. The dominant RCA has moderate diffuse disease in its mid portion and is totally occluded distally (culprit lesion) with moderate thrombus and YOAN 0 distal flow. 2. Successful PTCA and ANNA x 1 to the distal RCA culprit lesion IMPRESSIONS: 1. There is 2-vessel CAD in this right dominant system. The left main is normal. The LAD has a 50% proximal and a long 60-70% mid lesion. The LCx supplies a single moderate sized OM1. The previously placed OM1 BMS is widely patent. The dominant RCA has moderate diffuse disease in its mid portion and is totally occluded distally (culprit lesion) with moderate thrombus and YOAN 0 distal flow. 2. Successful PTCA and ANNA x 1 to the distal RCA culprit lesion RECOMMENDATIONS: 1. ASA 81 mg QD 2. 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 High dose statin for secondary prevention 4. Carvedilol as tolerated post PA 5. Echo in 24-48 hours 6. MPI study in 4 weeks to assess significance of residual LAD disease, which is amenable to PCI if necessary. 7. Patient needs a f/u appointment with [facility] (says he has had trouble following up in the past- reason unclear). Camilo Agata 03/03/2014 8:47 AM documented in this encounter H&P Notes * Freedom Torres MD - 03/02/2014 8:40 PM CDT [facility] Comprehensive History and Physical PATIENT NAME: Giacomo Traylor DATE: 03/02/2014 AGE: 48 y.o. : 7 Admitting Physician: Established [facility] patient: Cheli Ramsey M.D. CC : STEMI History of Present Illness: Mr. Giacomo Traylor is a 48 y.o. male with a cardiac history notable for : 1. Type B Dissection January 2011 2. Stent Graft by Dr. Barone January 2011 3. 07/22- BMS to OM 1 4. DM II 5. HTN 6. DLD He has just arrived by air ambulance from [place], [place] .Where he presented with retrosternal discomfort - Chest pain started around 5:00 PM , stuttering , pressure like with radiation to b/l UE. 01/15 , ECG was obtained at 18:46 hours at [place] [place]I was initiated. He experienced multiple episodes of this CP en route to here , NTG drip was star kourtney, he has been CP free but does c/o of SOB. No Syncope/ No palpitations. ROS: Deferred as this STEMI , I will interview him again after the coronary sherice ogram / once he is stable. PMH : 1. Type B Dissection January 2011 2. Stent Graft by Dr. Barone January 2011 3. 07/22- BMS to OM 1 4. DM II 5. HTN Family History / Social History will be reviewed once he is stable and after the cath. Allergies : NKDA PHYSICAL EXAM: RR - 14-18 , BP - 123/80 B/L UE Psych: Anxious General appearance: Alert, cooperative / Anxious Neck: Eyes: ENMT: Jugular venous pulsation is not elevated. No Thyromegaly No scleral icterus. Moist oral mucosa, posterior pharynx is clear and without erythema. . Lungs: Clear to auscultation bilaterally Heart:: Regular rate and rhythm, normal S1 and S2, no murmur, rub or gallop Abdomen: Soft and non-tender. Bowel sounds are normal. Extremities: No edema. Warm. Skin: No obvious rash Vessels: Left Femoral 2+ , Rt Femoral 1+ - surgical scar from AAA repair / graft seen . N o pulse deficit Hematology: No major bruising LABORATORY, IMAGING AND CARDIAC TESTING: From [place], [place] 03/02: Hgb -16.3 , Platelets - 209, INR -1.0 , BMP not available at this point. EKG (personally reviewed):LUNA - MAR 02 - 18:46 hours NSR , 82 , Normal Bruno , ST Elevation II , III and aVF , inferior q, poor r wave progression. ECHO 07/24 : CONCLUSIONS: 1. Hyperdynamic left ventricular systolic function, with an estimated ejection fraction of 75%. 2. Normal valves Coronary angiography: 07/24/2013 SUMMARY: -- 1ST LESION INTERVENTIONS: -- A 3.5x15 Integrity bare metal stent insertion was performed on the 95 % lesion in the 1st obtuse marginal to 16 noemi. Following intervention there was a 0 % residual stenosis. -- CASE ABSTRACT: -- Culprit 95% proximal circumflex with mild proximal and mid LAD and mild to moderate midRCA disease. PCI of proximal circumflex 95% with 3.5x15 Integrity BMS. IMPRESSION: 1. Inferior STEMI 2. H/o of CAD / S - OM1 as Outlined above 3. EVAR of Type B Dissection January 2011 5. DLD 6. H/o of Smoking Plan : Emergent Coronary Angiogram +- PCI planned R/B/A discussed with him by and I and he wish to proceed Plavix 600 mg - given to him at [facility] ~ Continue ASA Coreg / TRINO-I - post procedure - after reviewing BMP Check A1c and FLP in am High Intensity Statin Rx Will obtain ROS / Social history post procedure and will update the H&P Further Recommendations after Coronary Angiogram. Last office note by Dr.McGhie is attached below Maurice Napoles MD CV Fellow / [facility]ouse Fellow Addendum: Patient seen and examined. History and physical exam are as reported tania Napoles above. Patient is having an acute IMI. Currently hemodynamically s table but with persistent inferior ST elevation. Has received ASA/clopidogrel/he dominic in the field. Will take emergently for cath and possible PCI depending on findings. Further plans will be defined after cath procedure. [place] [facility] [place] [address] August 16, 2011 Andres Maki MD [address] [facility] [address] [place] [address] RE: GIACOMO TRAYLOR : 1965 Chart #: [id number] Visit provider: Cheli Ramsey M.D. Visit location: [place] office Dear Dr. Maki: I had the pleasure of seeing GIACOMO TRAYLOR in the office today. He is 46 ye ars of age and presents with the following chief complaints: follow up on chron ic disease. HPI: I saw this patient today for followup. From the symptomatic perspective, he sti ll has been having some discomfort in the inner aspect of his right thigh for wh ich he takes hydrocodone/acetaminophen on a fairly regular basis. He continues to experience some atypical chest pain and some exertional dyspnea. Unfortunate ly, he has not scheduled his cardiac testing at this time, because he has not go t his insurance status resolved. He feels that this should be covered under wor [employer] comp. According to him, this is close to being resolved. He has also not yet established care with a primary care physician. Problem List: 01/06/2011 Type B Aortic Dissection 06/16/2011 Dyslipidemia Hypertension Morbid obesity 01/19/2011 PVD Thoracic aneurysm repair Thoracic aneurysm repair -Type B thoraci c aortic dissection versus perforation penetrating ulcer in the mid descending t horacic aorta. Deployment of a TAG stent graft in the descending thoracic aorta (10 cm x 26 mm). Tobacco Abuse, current Past Medical History: GERD Anxiety Morbid Obesity Final Medications: Simvastatin 20 Mg take 1 tablet (20MG) by oral route every day in the evening Carvedilol 6.25 Mg take 1 tablet (6.25MG) by oral route 2 times every day with food Hydrocodone Bit/ acetaminophen 7.5-325mg take 1 tablet by oral route every 6 hours as needed for pain Ibuprofen 800 Mg take 1 tablet (800MG) by oral route 3 times every day with food Allergies/Intolerances: No Known Allergies Family History: Father Cause of was Liver disease at age 67. Mother Cause of was PA at age 50. Social History: Marital Status: Single Children: 4 Occupation: Retired Diet: Regular, Low fat/chol, Low carb Exercise: Occasional. Walk 2 miles Smoking: Current smoker of 1.50 packs per day for 25.00 years. Alcohol: Does not drink Caffeine: Caffeine use: 12 oz. occasionally of soda ROS: 12-point review of systems is negative with the following exceptions: Constitutional: Cough Pulmonary: Snore Cardiovascular: Chest Discomfort, Irregular or fast rhythm, Skipped heartbeats, Shortness of breath, Lightheadedness Neuro: Numbness/Weakness Musculoskeletal/Dermatology: Myalgias, Arthralgias Endocrine/Psych: Excessive thirst Physical Exam: Vital Signs The patient is 5ft 6in tall, and weighs 255.60lbs. The BMI is 41.30 . Blood pressure taken in the left arm is 136/98 mmHg in the sitting position. The pulse is 72. The rhythm is regular. Const The patient is a morbidly obese male. HEENT The pupils are equal and round. The patient's sclerae are clear. The ora l mucosa is moist. Jugular venous pressure is estimated to be less than 8. Pulm Lungs are clear to auscultation. Cardiac Regular rate and rhythm. Normal S1 and S2. No murmur, rub, or gallop pre sent. Abd The patient has no abdominal tenderness to palpation. There is no hepatomegaly. There is no splenomegaly. The abdominal aorta is of normal size . No abdominal masses are present on palpation. Vasc The right and left radial pulses are normal. There are normal right and le ft femoral pulses. There are normal right and left posterior tibial pulses. T he right and left dorsalis pedis pulses are normal. Most Recent Lipids Available for Review: Date Collected: 08/16/2011 Fasting: Non-Fasting Total Cholesterol: 143 HDL: 20 LDL: 74 Triglycerides: 245 Ratio: 7.15 Glucose: 119 ALT 24 Impression and Plan: 1. Type B aortic dissection, status post repair by Dr. Lenin Romero, with placeme nt of a tag stent graft to the descending aorta and thoracic aorta in January 11. He appears to be doing satisfactorily from this perspective. The patient i s still followed by Dr. Romero on a regular basis for this. 2. Systemic hypertension. His blood pressure today was mildly elevated; however , he tells me he checks it at home on a regular basis and his systolics are typi dez running in the 110s to 120s mmHg with the diastolics in the 80s and occasi onally into the 90s mmHg diastolic. He does complain of some orthostatic sympto ms at times. I have not changed his medications at this present moment in time. 3. Dyslipidemia. This appears to be in control on his current regimen on simvas tatin. 4. Chest pain, dyslipidemia, and palpitations. The etiology of this is unclear. I do think we need some baseline cardiac evaluation and I have recommended that he proceed with a pharmacologic stress myocardial perfusion study and echocard iogram and he will get those scheduled once he has the workmens compensation organized. 5. Leg discomfort. I have given him a prescription again for Vicodin. I told h im I was not comfortable with any repeat prescriptions for this and if he was st ill having discomfort after this prescription ran out, he would need to followup with Dr. Maki in this regard. I will be in communication with you again once we have the results of this patie nts echocardiogram and stress myocardial perfusion study. Testing ordered: Description Interval Complete Echo with Doppler and Color Flow First Available Follow up: Cheli Ramsey M.D. 3 Months Thank you for allowing me to participate in GIACOMO TRAYLOR's care. If I can be of any further assistance, please do not hesitate to contact me. Sincerely, Cheli Ramsey M.D. [facility] cc: Dawson Hermosillo MD [address] [place] [address] F: 08/19/2011 documented in this encounter Consult Notes * Dorothy Brooks RN - 03/06/2014 1:36 PM CDT Associated Order(s): IP CONSULT TO [employer]ING[employer] Met with pt prior to discharge to review discharge instructions for diabetes. Re viewed insulin dose and timing. Reviewed doses, possible side effects and timing of Metformin and Glipizide. Reviewed hypo treatment. Also recommended pt get a Reli-on meter at [facility] if supplies for Contour USB prohibitive. No further que stion or issues assessed. Will sign off. Damon Brooks RN, [employer] * Lennie Lieberman RN - 03/03/2014 4:32 PM CDT Consulted to see this nice man with an A1C of >15% admitted with STEMI, seen in CCU. We talked about the need to take his meds, including diabetic meds. We talked about new career options if he needed insulin. His hope is to use insulin to get A1C down, then resume orals. He states he has been off work since June. States he quit his job for fear of "killing someone behind the wheel from my sugar being so high". We discussed complications from untreated DM. He has never taken insulin. I will consult [employer], print needymeds apps, provide resources. Will follow. * Megha Portillo MD - 03/03/2014 10:43 AM CDT Associated Order(s): IP CONSULT TO ENDOCRINOLOGY Endocrinology Consult H&P Giacomo Traylor Date of Admission: 03/02/2014 Impression: 1.T2DM, uncontrolled, Hb A1C 15.5% 2. CAD 3. STEMI s/p ANGLESMITH to RCA 4. Dyslipidemia 5. HTN 6. Obesity Recommendations/Plan: With regard to his diabetes, clearly he is not controlled at this time. 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 However, at this time, I have suggested given that his blood contreras gars are uncontrolled and he just had a myocardial infarction, he does need bett er blood sugar control, which will be achieved by insulin quickly. Hence, he is agreeable at this time. Knowing the fact that he does not have insurance curre ntly, I will start him on NPH 20 units twice a day. I will also start him on Hu malog 10 units before meals and this will be converted into regular insulin at d ischarge if he is not able to afford medications if his Medicaid application sarmiento s not pass before he is discharged from the hospital. I will also initiate metf ormin 48 hours after his cath. I will make adjustment based on his blood sugar response. If he is unwilling to continue MDI insulin at discharge , I might initiate sulfonylurea along with met formin and possibly basal insulin. I will just have to see how his blood sugars respond. I did encourage him to start working on lifestyle modification includ ing diet and exercise in order to lose weight. I will have the diabetes educato r come by and teach him use of insulin and I will also have the dietitian come b y and give him information on a diabetic as well as low-fat diets. In the past, he did have education but he was not able to afford outpatient nutrition classes due to expense. With regard to his dyslipidemia, his triglycerides are pretty elevated. 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 However,given that his current blood sugar control is poor, his triglycerides ar e also elevated. However, I would suggest increasing his fenofibrate to 160 mg daily and then reevaluate it in 6 weeks. He is already on max dose of Lipitor i nitiated by cardiology. I will have the social services specialist visit with him in order for him to start the Medic aid application if he is eligible and also to set up post-discharge followup care. He also reports that he has noted some swelling i n his lymph nodes and it seems that in the past this was evaluated, but this cou ld be reevaluated by the hospitalist team or primary cardiology service. His blood pressure management is per cardiology service. Thank you for the consult. I will continue to follow him through the main campus medical center. Reason for consult: Management of diabetes HPI: Giacomo Traylor is a 48 y.o. male who was admitted on 03/02/2014 due to complaints of chest pain. 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 He has a prior history of descending aortic dissection for which he had a stent placement. He reports being diagnosed with diabetes 2 years ago and was o n initially Janumet, which was later changed to metformin only. However, he rep orts that he has not taken his metformin since June of last year as he ran o ut and his primary care physician did not fill him since he had not seen them in some time. Patient reports that he is currently out of insurance and has not w orked in 5 months. 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 He reports at the time of his initial diagnosis, his hemoglobin A1c was 15.9% and he was able to bring it down to 6% with diet, exercise, and medication. As noted before, he has not been taking h is medication and he reports that he has not been very careful about his diet ei ther, although he does admit to losing a few pounds. He reports checking his bl ood sugars randomly with most of the numbers in the 140s, although in the last few days, his numbers have been high in the 200s or 250s. He reports having had an eye exam a year ago, which was negative. He denies any neuropathic symptoms in his feet and he has no know n kidney disease. He has hypertension as well as dyslipidemia. He is on both a torvastatin as well as fenofibrate, and he reports he was taking them. Indeed, he did show me his medication bag, which he brought with him. He is on fenofibr ate 54 mcg daily. His labs on admit showed a hemoglobin A1c of 15.5% and his trigly cerides were elevated over 1000. He denies having thyroid dysfunction, although his last TSH was slightly elevated, but on this admit, it was normal. He has no family history of thyroid problems. He reports currently his chest pain has abated. He denies any difficulty with breathing. He reports no headaches or vi marli changes, and no difficulty swallowing. He reports no GI symptoms at this t natasha, although he had been experiencing some nausea yesterday, and initially when he was experiencing chest pain, he felt that related to acid reflux and took a few Zantac, but did not help. He reports no swelling in his legs. He denies de pression or anxiety. He does report fatigue. He is somewhat frustrated that due to lack of medicatio n, his blood sugars have been elevated. He is willing to work on his dietary mo dification like he has before in order to get his blood sugars under better cont rol. Since his admit, he has ate some breakfast this morning. His blood sugars have been elevated, mostly in upper 200s. He did receive Lantus 15 units last night; however, it did not help much with his blood sugar control. He is also o n sliding-scale Humalog at this time. PMH: Past Medical History Diagnosis Date Blurry vision 03/02/2014 Myocardial infarction Peripheral vascular disease Hypertension Diabetes mellitus type II Hyperlipidemia Hernia ROS: A complete 10 point ROS was negative except as in HPI. SOCIAL HISTORY: History Social History Marital Status: Single Spouse Name: N/A Number of Children: N/A Years of Education: N/A Occupational History Not on file. Social History Main Topics Smoking status: Current Every Day Smoker -- 0.25 packs/day for 14 years Smokeless tobacco: Not on file Alcohol Use: Yes Comment: once/month Drug Use: No Sexually Active: Not on file Other Topics Concern Not on file Social History Narrative No narrative on file FAMILY HISTORY: The patient has a family history of liver disease in father. No family history o f diabetes or thyroid disorder ALLERGIES: Allergies Allergen Reactions Bee Sting Kit VITAL SIGNS BP 102/62 | Pulse 74 | Temp(Src) 36.7 C (98 F) (Oral) | Resp 25 | Ht 1.702 m (5' 7") | Wt 110.5 kg (243 lb 9.7 oz) | BMI 38.15 kg/m2 | SpO2 93% I/O Intake/Output Summary (Last 24 hours) at 03/03/14 1043 Last data filed at 03/03/14 0616 Gross per 24 hour Intake 1520 ml Output 975 ml Net 545 ml PHYSICAL EXAMINATION: GEN: Alert, oriented, no apparent distress HEENT: PERRLA, EOMi, no scleral icterus/pallor, xanthelesma NECK: Neck supple, no thyromegaly/nodularity RESP: Clear to auscultation bilaterally CVS: Regular rate and rhythm, S1 S2 normal, no murmur ABD: Soft, non tender, non distended, BS+ EXT: No edema/cyanosis SKIN: No rash NEURO : 10 gram monofilament negative b/l LABS: Most Recent Result within the last 7 days Lab Units 03/03/14 0405 WBC TH/uL 7.77 HEMOGLOBIN g/dL 13.0 HEMATOCRIT % 37* PLATELET COUNT TH/uL 165 Most Recent Result within the last 7 days Lab Units 03/03/14 0405 03/02/14 2210 SODIUM MEQ/L 133 136 POTASSIUM MEQ/L 4.2 4.1 CHLORIDE MEQ/L 102 103 CARBON DIOXIDE MEQ/L 25 22 BLOOD UREA NITROGEN mg/dL 10 9 CREATININE mg/dL 0.8 0.7 CALCIUM mg/dL 8.2* 7.9* ALBUMIN g/dL 3.2* -- PROTEIN TOTAL SERUM g/dL 6.2 -- ALKALINE PHOSPHATASE IU/L 125 -- ALANINE AMINOTRANSFERASE IU/L 56 -- ASPARTATE AMINOTRANSFERASE IU/L 102* -- GLUCOSE mg/dL 287* 240* Most Recent Result within the last 7 days Lab Units 03/03/14 0405 THYROID STIMULATING HORMONE uIU/mL 2.61 T4 FREE ng/dL 1.2 Most Recent Result within the last 7 days Lab Units 03/03/14 0405 CHOLESTEROL mg/dL 172 TRIGLYCERIDES mg/dL 1125* HDL CHOLESTEROL mg/dL 17* LDL CHOLESTEROL mg/dL Not Calc MEDS: MEDS aspirin 81 mg Oral Daily atorvastatin 80 mg Oral Nightly carvedilol 3.125 mg Oral BID fenofibrate 160 mg Oral QPM heparin (porcine) 5,000 Units Subcutaneous Q8H insulin lispro 1-6 Units Subcutaneous 4 times daily before meals and nightl y insulin lispro 10 Units Subcutaneous TID AC insulin NPH 20 Units Subcutaneous BID AC ticagrelor 90 mg Oral Q12H ECHO IV MEDS Prn acetaminophen, acetaminophen, aluminum-magnesium hydroxide-simeth icone, atropine, dextrose, diazepam, diphenhydrAMINE, diphenhydrAMINE, docusate sodium, fentanyl, glucagon, glucagon, miconazole nitrate, nitroglycerin, ondanse anthony, ondansetron, oxyCODONE-acetaminophen, polyethylene glycol, zolpidem Radiology reviewed Signed Electronically by Megha Portillo 03/03/2014 10:43 AM documented in this encounter Miscellaneous Notes * [facility] - Marichuy Archuleta Dr., MD - 03/18/2014 9:03 AM CDT Survey Start Date and time: 20140318 09:02:35 Survey End Date and time: 20140318 09:03:04 Patient Name : 1965 PCP: Leanne Xiong SurveyName: [facility] Initial Survey Question/Response: Discharge Date:? 03/06/2014 Account number with facility identifier: example - [id number]:? [id number] Medical Records Number (MRN): example - [id number]? [id number] Pre-Enrollment: What is the listed Diagnosis on the After Visit Summary (AVS) or the Admitting Face Sheet (ADM)? ACP: STEMI Is this a good time for you to talk with me? No RN: Document reason for not completing the survey today.? Not Eligible, Other - End Survey RN: Document answer: If Not Eligible, Other - what is reason:? Multiple Attempts with VM/no return calls P M CDT * [facility] - Marichuy Archuleta Dr., MD - 03/09/2014 10:25 AM CDT Survey Start Date and time: 20140309 10:24:03 Survey End Date and time: 20140309 10:25:29 Patient Name : 1965 PCP: Leanne Xiong SurveyName: [facility] Initial Survey Question/Response: Discharge Date:? 03/06/2014 Account number with facility identifier: example - [id number]:? [id number] Medical Records Number (MRN): example - [id number]? [id number] Pre-Enrollment: What is the listed Diagnosis on the After Visit Summary (AVS) or the Admitting Face Sheet (ADM)? ACP: STEMI Is this a good time for you to talk with me? No RN: Document reason for not completing the survey today.? Now is not a good time - Reschedule RN: Document: Now is not a good time, Reschedule - Reason:? VM - left w/call back number, Rescheduled A M CDT * [facility] - Kathe, Dr. Benedict MD - 03/08/2014 1:41 PM CDT Survey Start Date and time: 20140308 13:39:34 Survey End Date and time: 20140308 13:41:56 Patient Name : 1965 PCP: Leanne Xiong SurveyName: [facility] Initial Survey Question/Response: Discharge Date:? 03/06/2014 Account number with facility identifier: example - [id number]:? [id number] Medical Records Number (MRN): example - [id number]? [id number] Pre-Enrollment: What is the listed Diagnosis on the After Visit Summary (AVS) or the Admitting Face Sheet (ADM)? ACP: STEMI Is this a good time for you to talk with me? No RN: Document reason for not completing the survey today.? Now is not a good time - Reschedule RN: Document: Now is not a good time, Reschedule - Reason:? VM - left w/call back number, Rescheduled P M CDT * Plan of Care - Maci David RN - 03/05/2014 12:47 AM CDT Problem: Pain Goal: Patients pain/discomfort is manageable Assess and monitor patients pain using appropriate pain scale. Collaborate [facility] interdisciplinary team and initiate plan and interventions as ordered. Re-ass ess patients pain level 30 - 60 minutes after pain management intervention. Outcome: Progressing PRN percocet for left groin/abdomen pain as well as heating pad, pt sleeping and appears comfortable. Problem: Discharge Barriers Goal: Patients discharge needs are met Collaborate with interdisciplinary team and initiate plans and interventions as needed. Outcome: Progressing Met with SW today to discuss payment for prescriptions, see SW note. Problem: Potential for Ineffec Peripheral Tissue Perfusion Goal: Procedure site maintains hemostasis w/o hematoma or bruit Outcome: Progressing Large, painful ecchymotic area lower left abdomen directly above groin site, con t to monitor and use PRN pain control * Plan of Care - Carolina Nugent RN - 03/03/2014 5:20 AM CDT Problem: Pain Goal: Patients pain/discomfort is manageable Assess and monitor patients pain using appropriate pain scale. Collaborate [facility] interdisciplinary team and initiate plan and interventions as ordered. Re-ass ess patients pain level 30 - 60 minutes after pain management intervention. Outcome: Progressing Pt c/o severe pain at left groin site with no evidence of swelling or bleeding. Fentanyl given for relief. Dr. Napoles notified, orders to monitor site. * Sedation Documentation - Freedom Torres MD - 03/02/2014 9:20 PM CDT CV Laboratory Pre-Conscious Sedation (Sedation/[place]) Physician Evaluation Chief complaint/ History of present illness/ Indication for procedure: Acute IMI Planned Procedure/ Treatment: Cors possible PCI History and Physical Status: New H&P on Chart (within 24 hours of procedure) Pre-Sedation/[place] ASA Status: II - Patient with mild systemic disease Plan for Anesthesia: Level 1 (Minimal - CV Lab) Airway Assessment: WNL documented in this encounter Plan of Treatment Not on filedocumented as of this encounter Procedures Comments Procedure Name Priority Date/Time Associated Diag nosis LAB SUMMARY 04/16/2014 8:24 AM CDT GLUCOSE POC Routine 03/06/2014 8:09 AM CDT GLUCOSE POC Routine 03/05/2014 9:07 PM CDT GLUCOSE POC Routine 03/05/2014 7:11 PM CDT GLUCOSE POC Routine 03/05/2014 12:29 PM CDT GLUCOSE POC Routine 03/05/2014 7:33 AM CDT GLUCOSE POC Routine 03/05/2014 3:29 AM CDT GLUCOSE POC Routine 03/05/2014 12:10 AM CDT GLUCOSE POC Routine 03/04/2014 8:44 PM CDT GLUCOSE POC Routine 03/04/2014 5:38 PM CDT GLUCOSE POC Routine 03/04/2014 12:08 PM CDT GLUCOSE POC Routine 03/04/2014 8:01 AM CDT GLUCOSE POC Routine 03/03/2014 9:29 PM CDT GLUCOSE POC Routine 03/03/2014 6:25 PM CDT GLUCOSE POC Routine 03/03/2014 1:08 PM CDT GLUCOSE POC Routine 03/03/2014 11:26 AM CDT ECHO COMPLETE W DOPPLER Routine 03/03/2014 AND COLOR FLOW W OPTISON 11:11 AM CDT GLUCOSE POC Routine 03/03/2014 7:41 AM CDT GLUCOSE POC Routine 03/03/2014 6:19 AM CDT GLUCOSE POC Routine 03/03/2014 4:09 AM CDT GLUCOSE POC Routine 03/03/2014 4:07 AM CDT TROPONIN Timed 03/03/2014 4:05 AM CDT THYROID STIMULATING Routine 03/03/2014 HORMONE 4:05 AM CDT T4 FREE Routine 03/03/2014 4:05 AM CDT MAGNESIUM Routine 03/03/2014 4:05 AM CDT LIPID PANEL Routine 03/03/2014 4:05 AM CDT COMPREHENSIVE METABOLIC Routine 03/03/2014 PANEL 4:05 AM CDT COMPLETE BLOOD COUNT Routine 03/03/2014 4:05 AM CDT TROPONIN Timed 03/03/2014 1:20 AM CDT GLUCOSE POC Routine 03/02/2014 11:37 PM CDT GLUCOSE POC Routine 03/02/2014 10:11 PM CDT TROPONIN STAT 03/02/2014 10:10 PM CDT HEMOGLOBIN A1C Routine 03/02/2014 10:10 PM CDT BASIC METABOLIC PANEL Add-On 03/02/2014 10:10 PM CDT PULSE OXIMETRY, Routine 03/02/2014 CONTINUOUS 10:03 PM CDT ECG Routine 03/02/2014 9:40 PM CDT CORONARY ANGIOGRAPHY WITH STAT 03/02/2014 POSSIBLE PCI 9:22 PM CDT OXYGEN Routine 03/02/2014 9:13 PM CDT PULSE OXIMETRY, Routine 03/02/2014 CONTINUOUS 9:13 PM CDT documented in this encounter Results * LAB SUMMARY (04/16/2014 8:24 AM CDT) Narrative Performed At This result has an attachment that is n ot available. Ordered by an unspecified provider. * GLUCOSE POC (03/06/2014 8:09 AM CDT) Only the most recent of 21 results within the time period is included. Glucose POC 216 (H) 70 - 100 mg/dL [facility] Specimen Blood Performing Organization Address City/State/Zipcode Ph one Number [address] [address] LABORATORIES * Echo Complete with Doppler and Color Flow (03/03/2014 11:11 AM CDT) Specimen Narrative Performed At [facility] RAD ECHOCARDIOGRAM REPORT [facility] Name: GIACOMO TRAYLOR Date: 03/03/2014 10:45 Chart #: [id number] : 1965 Location: [facility] IP Sono: [place] Age: 48 Gender: M Referring: MAURICE NAPOLES MD Room # : [id number]-7 Fellow: Indication: Myocardial Infarction ( inf stemi) Procedure: [id number] Complete Echo 2D/Col orflow/Doppler [id number] BP: 102 / 67 HR: 67 Ht: 67 Wt: 243 BSA: 2.3 2D ECHO MEASUREMENTS LV Diastolic Diameter Bas 5.8 cm 3.6-5.4 LVPW Diastolic Thickness 1 cm 0.6-1.1 LV Systolic Diameter Base 3.2 cm 2.3-4.0 Aorta at Sinuses Diameter 3.5 cm 2.1-3.5 LA Systolic Diameter LX 3 cm 2.3-3.8 Ascending Aorta Diameter 3.5 cm 2.1-3.4 IVS Diastolic Thickness 0.8 cm 0.6-1.1 AORTIC VALVE DOPPLER AV Peak Velocity 124 cm/ s LVOT AV Frederic Ratio 0.85 AV Peak Gradient 6.2 mmH g MITRAL VALVE DOPPLER Mitral E Point Velocity 86.4 cm/s Mitral E to A Ratio 1.4 Mitral A Point Velocity 62.2 cm/s WALL SEGMENT ANALYSIS: ROUTINE LVSI : 1.765 %FM : 58 LAD : 1.111 LCX : 1 RCA : 3 Hypokinetic - Mid Ante rior Septum Akinetic - Basal Posterior, Mid Posterior, Basal Septum, B darcy Inferior, Mid Inferior, Apical Inferior FINDINGS LV Ejection Fraction: 45 Technically difficult study. Optison was injected to enhance left ventricular border definition. Mildly reduced left ventricular systo lic function, with an estimated ejection fraction of 45%. Normal wall thickness. Regional wall motion abnormalities (s ee diagram). Mild left ventricular dilatation. Mild right ventricular dilatation wit h moderately reduced systolic function. Normal right and left atrial size. Likely moderate diastolic dysfunction - elevated mean LA pressure with reduced LV relaxation. Normal aortic valve without regurgita tion. Normal mitral valve with trivial regu rgitation. Normal pulmonic valve with trivial re gurgitation. Normal tricuspid valve with trivial r egurgitation. Unable to accurately estimate pulmonary artery pressure. No pericardial effusion. IVC is dilated and not responsive to inspiration indicating markedly elevated RA pressure. Normal size ascending aorta. No obvious intracardiac masses or thr ombi. CONCLUSIONS: 1) Mildly reduced left ventricular sy stolic function, with an estimated ejection fraction of 45%. 2) Inferior and inferolateral akinesi s. 3) Mild right ventricular dilatation with moderately reduced systolic function. 4) No significant valvular abnormalit ies. Yue Cosme M.D. (Electronically Signed) Final Date: 03 March 2014 13:52 Procedure Note Interface, External Ris In - 03/03/2014 1:52 PM CDT ECHOCARDIOGRAM REPORT [facility] Name: GIACOMO TRAYLOR Date: 03/03/2014 10:45 Chart #: [id number] : 1965 Location: [facility] IP Sono: [place] Age: 48 Gender: M Referring: MAURICE NAPOLES MD Room #: H4-7 Fellow: Indication: Myocardial Infarction (inf stemi) Procedure: [id number] Complete Echo 2D/Colorflow/Doppler [id number] BP: 102 / 67 HR: 67 Ht: 67 Wt: 243 BSA: 2.3 2D ECHO MEASUREMENTS LV Diastolic Diameter Bas 5.8 cm 3.6-5.4 LVPW Diastolic Thickness 1 cm 0.6-1.1 LV Systolic Diameter Base 3.2 cm 2.3-4.0 Aorta at Sinuses Diameter 3.5 cm 2.1-3.5 LA Systolic Diameter LX 3 cm 2.3-3.8 Ascending Aorta Diameter 3.5 cm 2.1-3.4 IVS Diastolic Thickness 0.8 cm 0.6-1.1 AORTIC VALVE DOPPLER AV Peak Velocity 124 cm/s LVOT AV Frederic Ratio 0.85 AV Peak Gradient 6.2 mmHg MITRAL VALVE DOPPLER Mitral E Point Velocity 86.4 cm/s Mitral E to A Ratio 1.4 Mitral A Point Velocity 62.2 cm/s WALL SEGMENT ANALYSIS: ROUTINE LVSI : 1.765 %FM : 58 LAD : 1.111 LCX : 1 RCA : 3 Hypokinetic - Mid Anterior Septum Akinetic - Basal Posterior, Mid Posterior, Basal Septum, Basal Inferior, Mid Inferior, Apical Inferior FINDINGS LV Ejection Fraction: 45 Technically difficult study. Optison was injected to enhance left ventricular border definition. Mildly reduced left ventricular systolic function, with an estimated ejection fraction of 45%. Normal wall thickness. Regional wall motion abnormalities (see diagram). Mild left ventricular dilatation. Mild right ventricular dilatation with moderately reduced systolic function. Normal right and left atrial size. Likely moderate diastolic dysfunction - elevated mean LA pressure with reduced LV relaxation. Normal aortic valve without regurgitation. Normal mitral valve with trivial regurgitation. Normal pulmonic valve with trivial regurgitation. Normal tricuspid valve with trivial regurgitation. Unable to accurately estimate pulmonary artery pressure. No pericardial effusion. IVC is dilated and not responsive to inspiration indicating markedly elevated RA pressure. Normal size ascending aorta. No obvious intracardiac masses or thrombi. CONCLUSIONS: 1) Mildly reduced left ventricular systolic function, with an estimated ejection fraction of 45%. 2) Inferior and inferolateral akinesis. 3) Mild right ventricular dilatation with moderately reduced systolic function. 4) No significant valvular abnormalities. Yue Cosme M.D. (Electronically Signed) Final Date: 03 March 2014 13:52 Performing Organization Address [facility] one Number [facility] [address] [place] [address] * T4 Free - In AM (03/03/2014 4:05 AM CDT) T4 Free 1.2 0.8 - 2.2 ng/dL [facility] Specimen Blood - Blood Performing Organization Address [facility] one Number [address] [id number] LABORATORIES * Thyroid Stimulating Hormone - In AM (03/03/2014 4:05 AM CDT) Thyroid 2.61 0.47 - 4.68 uIU/mL [facility] Hormone LABORATORIES Specimen Blood - Blood Performing Organization Address [facility] one Number [address] [address] LABORATORIES * Complete Blood Count - In AM (03/03/2014 4:05 AM CDT) WBC 7.77 4.00 - 11.00 TH/uL [facility] RBC 4.57 4.31 - 5.84 MIL/uL [facility] Hemoglobin 13.0 13.0 - 17.0 g/dL [facility] Hematocrit 37 (L) 40 - 50 % [facility] MCV 81 80 - 99 fL [facility] MCH 28 27 - 34 pg [facility] MCHC 35 32 - 36 % [facility] RDW 13.2 9.0 - 14.5 % [facility] Platelet Count 165 140 - 400 TH/uL [facility] MPV 10.6 9.4 - 12.3 fL [facility] Nucleated RBCs 0 0 - 0 /100 [facility] Specimen Blood - Blood Performing Organization Address [facility] one Number [facility] [address] [place] [address] LABORATORIES * Magnesium - In AM (03/03/2014 4:05 AM CDT) Magnesium 1.6 1.4 - 2.7 mg/dL [facility] Specimen Blood - Blood Performing Organization Address [facility] one Number [facility] [address] [place] [address] LABORATORIES * Comprehensive Metabolic Panel - In AM (03/03/2014 4:05 AM CDT) Sodium 133 133 - 147 MEQ/L [facility] Potassium 4.2 3.5 - 5.3 MEQ/L [facility] Chloride 102 96 - 112 MEQ/L [facility] Carbon Dioxide 25 20 - 32 MEQ/L [facility] Anion Gap 6 5 - 17 [facility] Calcium 8.2 (L) 8.4 - 10.5 mg/dL [facility] Glucose 287 (H) 70 - 100 mg/dL [facility] Protein Total 6.2 6.0 - 8.2 g/dL [facility] Serum [facility] Albumin 3.2 (L) 3.5 - 5.0 g/dL [facility] Alkaline 125 42 - 140 IU/L [facility] Phosphatase [facility] Alanine 56 13 - 69 IU/L [facility] Aminotransferas [facility] e LABORATORIES Aspartate 102 (H) 15 - 46 IU/L [facility] Bilirubin Total 1.3 0.2 - 1.3 mg/dL [facility] Blood Urea 10 7 - 26 mg/dL [facility] Nitrogen [facility] Creatinine 0.8 0.6 - 1.3 mg/dL [facility] eGFR Male AA 125 [facility] Comment: REGIONAL Chronic Kidney Disease less LABORATORIES than 60 mL/min/1.73 sq.m Kidney failure less than 15 mL/min/1.73 sq.m eGFR Male 104 [facility] Non-AA Comment: REGIONAL Chronic Kidney Disease less LABORATORIES than 60 mL/min/1.73 sq.m Kidney failure less than 15 mL/min/1.73 sq.m Specimen Blood - Blood Performing Organization Address City/[facility] one Number [address] [address] LABORATORIES * Lipid Panel - Fasting - In AM (03/03/2014 4:05 AM CDT) Cholesterol 172 100 - 200 mg/dL [facility] HDL Cholesterol 17 (L) 40 - 110 mg/dL [facility] Non-HDL 155 (H) 0 - 130 mg/dL [facility] Cholesterol [facility] Triglycerides 1,125 (H) 0 - 150 mg/dL [facility] LDL Cholesterol Not CalcComment: Unable to 0 - 99 mg/dL [facility] calculate LDL due to REGIONAL Triglycerides > 400 mg/dl LABORATORIES Cholesterol/HDL 10.1 (H) 0.0 - 4.5 [facility] Ratio REGIONAL LABORATORIES Specimen Blood - Blood Performing Organization Address [facility] one Number [facility] [address] [address] LABORATORIES * Troponin - 3 and 6 hr (03/03/2014 4:05 AM CDT) Only the most recent of 3 results within the time period is included. Troponin 21.00 (H) 0.00 - 0.03 ng/mL [facility] Comment: REGIONAL Troponin Value LABORATORIES Interpretation 0.00 - 0.03 Healthy 0.04 - 0.12 Increased Cardiac Risk >0.12 Myocardial Infarction Troponin may not become elevated until 6 to 8 hours after onset of symptoms. Specimen Blood - Blood Performing Organization Address City/[facility] one Number [facility] [address] [address] LABORATORIES * Basic Metabolic Panel (03/02/2014 10:10 PM CDT) Sodium 136 133 - 147 MEQ/L [facility] Potassium 4.1 3.5 - 5.3 MEQ/L [facility] Chloride 103 96 - 112 MEQ/L [facility] Carbon Dioxide 22 20 - 32 MEQ/L [facility] Anion Gap 11 5 - 17 [facility] Calcium 7.9 (L) 8.4 - 10.5 mg/dL [facility] Glucose 240 (H) 70 - 100 mg/dL [facility] Blood Urea 9 7 - 26 mg/dL [facility] Creatinine 0.7 0.6 - 1.3 mg/dL [facility] eGFR Male AA >130 [facility] Comment: REGIONAL Chronic Kidney Disease less LABORATORIES than 60 mL/min/1.73 sq.m Kidney failure less than 15 mL/min/1.73 sq.m eGFR Male 121 [facility] Non-AA Comment: REGIONAL Chronic Kidney Disease less LABORATORIES than 60 mL/min/1.73 sq.m Kidney failure less than 15 mL/min/1.73 sq.m Specimen Blood - Blood Performing Organization Address [facility] one Number [address] [phone] LABORATORIES * Hemoglobin A1C (03/02/2014 10:10 PM CDT) Hemoglobin A1C 15.8 (H) 4.0 - 5.6 % [facility] Comment: REGIONAL Non-diabetic 4.0 - LABORATORIES 5.6 % Prediabetes 5.7 - 6.4 % Diabetes >= 6.5 % Specimen Blood - Blood Performing Organization Address City/[facility] one Number [address] [address] LABORATORIES * Electrocardiogram (ECG) - In AM (03/02/2014 9:40 PM CDT) Specimen Narrative Performed At [facility] Name GIACOMO TRAYLOR Date of 1965 Sex M Visit [id number] Facility [facility] Service Date 03/02/2014, 21:40:18 60 164 86 428 428 36 -24 70 13 92 61 - ABNORMAL ECG - SINUS RHYTHM normal P axis, V-rate 50-99 INFERIOR INFARCT, RECENT Q\\T\\gt;35mS, ST\\T\\gt;0.07mV, T neg, II- aVF FINAL REPORT Procedure Note Interface, External Ris In - 03/05/2014 5:26 PM CDT Name GIACOMO TRAYLOR Date of 1965 Sex M Visit [id number] Facility [facility] Service Date 03/02/2014, 21:40:18 60 164 86 428 428 36 -24 70 13 92 61 - ABNORMAL ECG - SINUS RHYTHM normal P axis, V-rate 50-99 INFERIOR INFARCT, RECENT Q\\T\\gt;35mS, ST\\T\\gt;0.07mV, T neg, II-aVF FINAL REPORT Performing Organization Address City/State/Zipcode Ph one Number [facility] * Coronary Angiography with Possible PCI (03/02/2014 9:22 PM CDT) Specimen Narrative Performed At [facility] , Complete Report Name:GIACOMO TRAYLOR : 1965 Age: 48 years Gender: Male SSN: Study date: 03/02/2014 CPI number: [id number] CV Cath number: [id number] [employer] OPERATOR: Freedom Torres M.D. INDICATIONS: 48 y.o. man with h/o previ ous Type B aortic dissection and PCI to OM1 presents with ongoing chest pain an d EKG evidence of acute IMI/STEMI. CCS IV. ADmitted in transfer from [facility] PROCEDURES PERFORMED: -- Left coronary angiography. -- Right coronary angiography. -- Art Access Exchange - L femoral ar sadia. -- Intervention on distal RCA: drug-e luting stent. PROCEDURE: The risks, benefits and alte rnatives of the procedure and conscious sedation were reviewed with the patient and informed consent was obtained. The patient was brought to the cardiac golf course laborer and placed on the table. The planned access sites were prepped and d raped in the usual sterile fashion. -- Left femoral artery access. The ac cess site was infiltrated with local anesthetic. The vessel was accessed usi ng the modified Seldinger technique, a wire was threaded into the vessel, and a 7 Fr short was advanced over the wire into the vessel. -- Left coronary artery angiography. A JL4 catheter was advanced to the aorta and positioned in the vessel ostium und er fluoroscopic guidance. Angiography was performed in multiple projections u sing hand-injection of contrast. -- Right coronary artery angiography. A JR4 catheter was advanced to the aorta and positioned in the vessel ostium und er fluoroscopic guidance. Angiography was performed in multiple projections u sing hand-injection of contrast. -- Art Access Exchange - L femoral ar sadia. LESION INTERVENTION: A drug-eluting erickson nt was performed on the 100 % lesion in the distal RCA. Following intervention there was a 0 % residual stenosis. This was not a bifurcation lesion. This was an ACC/AHA type C "high risk" lesion for intervention. There was no evidence of the transient no-reflow phenomenon. There was YOAN 0 flow before the proced ure and YOAN 3 flow after the procedure. Bleeding risk: high. Bival use: yes. Ra dial use: no. -- A 6F JR4.0 Launcher guiding cathet er was used to cannulate the vessel. -- A 0.348X880 DDVTECHer wire was used. -- Balloon angioplasty was performed, using a 2.0X20 Homer Monorail balloon, with a maximum inflation pressure of 8 noemi. -- Balloon angioplasty was performed, using a 3.0X20 Homer Monorail balloon, with a maximum inflation pressure of 8 noemi. -- A 3.50X28 Promus Premier RX drug-e luting stent was deployed in the lesion at a maximum inflation pressure of 14 a tm. Lesion (initial) Lesion length 20 mm PROCEDURAL DATA: No significant blood l oss. TIMING: Test started at 20:36. Test concluded at 21:19. RADIATION EXPOSURE: Fluoroscopy time: 9.3 min. HEMOSTASIS: The sheath was removed. The access site was sutured using the Perclose suture system. Hemostasis was successful. MEDICATIONS GIVEN: Midazolam, 2 mg, IV, at 20:38. Fentanyl, 25 mcg, IV, at 20:38. Fentanyl, 50 mcg, IV, at 21:16. Nitroglycerin, 100 mcg intracoronary, at 21:04. Bivalirudin (Angiomax), infusion rate of 38.5 ml/hr, IV, last dose at 21:18. 2% Lidocaine, 10 ml subcutaneous ly, at 20:40. Bivalirudin bolus, 16.5 ml IV, at 20:52. ticagrelor, 180 mg PO, at 21:12. CONTRAST GIVEN: Visipaque 100 ml. CORONARY ANGIOGRAPHY: The coronary circ ulation is right dominant. Left main: Normal. Proximal LAD: There was a 50 % stenosis. Mid LAD: There was a moderately long 60 % stenosis. Distal L AD: Normal. 1st diagonal: Normal. 2nd diagonal: Normal. Proximal circumflex: Normal. 1st obtuse marginal: There was a 0 % stenosis at the site of a prior erickson nt. Proximal RCA: Angiography showed minor luminal irregularities. Mid RCA: There was a long 40 % stenosis. Distal RCA: There was a long 100 % stenosis. T he lesion was associated with a moderate filling defect consistent with thrombus . There was YOAN grade 0 flow through the vessel (no flow), a large vascular territory distal to the lesion, and good collateral blood supply to the distal m yocardium. Right PDA: Normal. Right posterolateral segment: Normal. The ves deangelo was large sized. COMPLICATIONS: There were no complicati ons. SUMMARY: -- 1ST LESION INTERVENTIONS: -- A drug-eluting stent was performed on the 100 % lesion in the distal RCA. Following intervention there was a 0 % residual stenosis. -- CASE ABSTRACT: -- 1. There is 2-vessel CAD in this r ight dominant system. The left main is normal. The LAD has a 50% proximal and a long 60-70% mid lesion. The LCx supplies a single moderate sized OM1. T he previously placed OM1 BMS is widely patent. The dominant RCA has moderate d iffuse disease in its mid portion and is totally occluded distally (culprit lesi on) with moderate thrombus and YOAN 0 distal flow. 2. Successful PTCA and ANNA x 1 to the d istal RCA culprit lesion IMPRESSIONS: 1. There is 2-vessel CAD i n this right dominant system. The left main is normal. The LAD has a 50% proxi mal and a long 60-70% mid lesion. The LCx supplies a single moderate sized OM 1. The previously placed OM1 BMS is widely patent. The dominant RCA has mod erate diffuse disease in its mid portion and is totally occluded distally (culpr it lesion) with moderate thrombus and YOAN 0 distal flow. 2. Successful PTCA and ANNA x 1 to the d istal RCA culprit lesion RECOMMENDATIONS: 1. ASA 81 mg QD 2. 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 High dose statin for secondary preve ntion 4. Carvedilol as tolerated post PA 5. Echo in 24-48 hours 6. MPI study in 4 weeks to assess signi ficance of residual LAD disease, which is amenable to PCI if necessary. 7. Olimpia capps needs a f/u appointment with [facility] (says he has had trouble following up i n the past- reason unclear). Authenticated by Freedom Torres M.D. Signed 03/02/2014 21:31:46 HEMODYNAMIC TABLES Pressures: NO PHASE Pressures: - HR: 128 Pressures: - Rhythm: Pressures: -- Aortic Pressure (S/D/M) : 108/76/92 Outputs: NO PHASE Outputs: -- CALCULATIONS: [age] s[age] Outputs: -- CALCULATIONS: Body Surfac e Area: 2.21 Outputs: -- CALCULATIONS: Height in c m: 170.00 Outputs: -- CALCULATIONS: Sex: Male Outputs: -- CALCULATIONS: Weight in k .00 Outputs: -- OUTPUTS: O2 consumption: 276.23 Outputs: -- OUTPUTS: Vo2 Indexed: 125 .00 Procedure Note Interface, External Ris In - 03/02/2014 9:32 PM CDT , Complete Report Name:GIACOMO TRAYLOR : 1965 Age: 48 years Gender: Male SSN: Study date: 03/02/2014 CPI number: [id number] CV Cath number: [id number] [employer]ZER OPERATOR: Freedom Torres M.D. INDICATIONS: 48 y.o. man with h/o previous Type B aortic dissection and PCI to OM1 presents with ongoing chest pain and EKG evidence of acute IMI/STEMI. CCS IV. ADmitted in transfer from [facility] PROCEDURES PERFORMED: -- Left coronary angiography. -- Right coronary angiography. -- Art Access Exchange - L femoral tony ry. -- Intervention on distal RCA: drug-elu ting stent. PROCEDURE: The risks, benefits and alternatives of the procedure and conscious sedation were reviewed with the patient and informed consent was obtained. The patient was brought to the cardiac golf course laborer and placed on the table. The planned access sites were prepped and draped in the usual sterile fashion. -- Left femoral artery access. The [facility] ss site was infiltrated with local anesthetic. The vessel was accessed using the modified Seldinger technique, a wire was threaded into the vessel, and a 7 Fr short was advanced over the wire into the vessel. -- Left coronary artery angiography. A JL4 catheter was advanced to the aorta and positioned in the vessel ostium under fluoroscopic guidance. Angiography was performed in multiple projections using hand-injection of contrast. -- Right coronary artery angiography. A JR4 catheter was advanced to the aorta and positioned in the vessel ostium under fluoroscopic guidance. Angiography was performed in multiple projections using hand-injection of contrast. -- Art Access Exchange - L femoral tony ry. LESION INTERVENTION: A drug-eluting stent was performed on the 100 % lesion in the distal RCA. Following intervention there was a 0 % residual stenosis. This was not a bifurcation lesion. This was an ACC/AHA type C "high risk" lesion for intervention. There was no evidence of the transient no-reflow phenomenon. There was YOAN 0 flow before the procedure and YOAN 3 flow after the procedure. Bleeding risk: high. Bival use: yes. Radial use: no. -- A 6F JR4.0 Launcher guiding catheter was used to cannulate the vessel. -- A 0.280I128 DDVTECHer wire was u sed. -- Balloon angioplasty was performed, u sing a 2.0X20 Homer Monorail balloon, with a maximum inflation pressure of 8 noemi. -- Balloon angioplasty was performed, u sing a 3.0X20 Homer Monorail balloon, with a maximum inflation pressure of 8 noemi. -- A 3.50X28 Promus Premier RX drug-elu ting stent was deployed in the lesion at a maximum inflation pressure of 14 noemi. Lesion (initial) Lesion length 20 mm PROCEDURAL DATA: No significant blood loss. TIMING: Test started at 20:36. Test concluded at 21:19. RADIATION EXPOSURE: Fluoroscopy time: 9.3 min. HEMOSTASIS: The sheath was removed. The access site was sutured using the Perclose suture system. Hemostasis was successful. MEDICATIONS GIVEN: Midazolam, 2 mg, IV, at 20:38. Fentanyl, 25 mcg, IV, at 20:38. Fentanyl, 50 mcg, IV, at 21:16. N itroglycerin, 100 mcg intracoronary, at 21:04. Bivalirudin (Angiomax), infusion rate of 38.5 ml/hr, IV, last dose at 21:18. 2% Lidocaine, 10 ml subcutaneousl y, at 20:40. Bivalirudin bolus, 16.5 ml IV, at 20:52. ticagrelor, 180 mg PO, at 21:12. CONTRAST GIVEN: Visipaque 100 ml. CORONARY ANGIOGRAPHY: The coronary circulation is right dominant. Left main: Normal. Proximal LAD: There was a 50 % stenosis. Mid LAD: There was a moderately long 60 % stenosis. Distal LAD: Normal. 1st diagonal: Normal. 2nd diagonal: Normal. Proximal circumflex: Normal. 1st obtuse marginal: There was a 0 % stenosis at the site of a prior sten t. Proximal RCA: Angiography showed minor luminal irregularities. Mid RCA: There was a long 40 % stenosis. Distal RCA: There was a long 100 % stenosis. The lesion was associated with a moderate filling defect consistent with thrombus. There was YOAN grade 0 flow through the vessel (no flow), a large vascular territory distal to the lesion, and good collateral blood supply to the distal myocardium. Right PDA: Normal. Right posterolateral segment: Normal. The vessel was large sized. COMPLICATIONS: There were no complications. SUMMARY: -- 1ST LESION INTERVENTIONS: -- A drug-eluting stent was performed o n the 100 % lesion in the distal RCA. Following intervention there was a 0 % residual stenosis. -- CASE ABSTRACT: -- 1. There is 2-vessel CAD in this rig ht dominant system. The left main is normal. The LAD has a 50% proximal and a long 60-70% mid lesion. The LCx supplies a single moderate sized OM1. The previously placed OM1 BMS is widely patent. The dominant RCA has moderate diffuse disease in its mid portion and is totally occluded distally (culprit lesion) with moderate thrombus and YOAN 0 distal flow. 2. Successful PTCA and ANNA x 1 to the di stal RCA culprit lesion IMPRESSIONS: 1. There is 2-vessel CAD in this right dominant system. The left main is normal. The LAD has a 50% proximal and a long 60-70% mid lesion. The LCx supplies a single moderate sized OM1. The previously placed OM1 BMS is widely patent. The dominant RCA has moderate diffuse disease in its mid portion and is totally occluded distally (culprit lesion) with moderate thrombus and YOAN 0 distal flow. 2. Successful PTCA and ANNA x 1 to the di stal RCA culprit lesion RECOMMENDATIONS: 1. ASA 81 mg QD 2. 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 High dose statin for secondary preven tion 4. Carvedilol as tolerated post PA 5. Echo in 24-48 hours 6. MPI study in 4 weeks to assess signif icance of residual LAD disease, which is amenable to PCI if necessary. 7. Patient needs a f/u appointment with [facility] (says he has had trouble following up in the past- reason unclear). Authenticated by Freedom Torres M.D. Signed 03/02/2014 21:31:46 HEMODYNAMIC TABLES Pressures: NO PHASE Pressures: - HR: 128 Pressures: - Rhythm: Pressures: -- Aortic Pressure (S/D/M): 108/76/92 Outputs: NO PHASE Outputs: -- CALCULATIONS: [age] Outputs: -- CALCULATIONS: Body Surface Area: 2.21 Outputs: -- CALCULATIONS: Height in cm: 170.00 Outputs: -- CALCULATIONS: Sex: Male Outputs: -- CALCULATIONS: Weight in k.00 Outputs: -- OUTPUTS: O2 consumption: 276.23 Outputs: -- OUTPUTS: Vo2 Indexed: 125.00 Performing Organization Address City/State/Zipcode one Number [facility] documented in this encounter Visit Diagnoses Diagnosis STEMI (ST elevation myocardial infarcti on) (HCC) Acute myocardial infarction, unspecifie d site, episode of care unspecified documented in this encounter Administered Medications Action Date Dose Rate Site Medication Order MAR Action 03/05/2014 12:33 PM CDT 15 mL aluminum-magnesium hydroxide-simethicone Given (MAALOX PLUS) 400-400-40 mg/5 mL suspension 15 mL 15 mL, Oral, Every 4 hours PRN, indigestion, Starting 03/02/14 at 2111, Avoid if estimated glomerular filtration rate (eGFR) is less than 20 mL/minute/1.73m2., 03/06/2014 9:12 AM CDT 81 mg aspirin chewable tablet 81 mg Given 81 mg, Oral, Daily, First dose on Sun03/03/14 at 0900 81 mg Given 03/05/2014 8:34 AM CDT 81 mg Given 03/04/2014 8:12 AM CDT 03/03/2014 9:40 PM CDT 80 mg atorvastatin (LIPITOR) tablet 80 mg Given 80 mg, Oral, Nightly, First dose on Sun03/02/14 at 2130 80 mg Given 03/02/2014 10:27 PM CDT 03/04/2014 8:13 AM CDT 3.125 mg carvedilol (COREG) tablet 3.125 mg Given 3.125 mg, Oral, 2 times daily, First dose on Sun03/02/14 at 2130, Give immediately if not given in ED, 3.125 mg Given 03/03/2014 9:40 PM CDT 3.125 mg Given 03/03/2014 8:00 AM CDT 03/06/2014 9:12 AM CDT 6.25 mg carvedilol (COREG) tablet 6.25 mg Given 6.25 mg, Oral, 2 times daily, First dos e (after last modification) on Sun 4 at 2100, Hold for sbp < 90 and/or hr < 60, 6.25 mg Given 03/05/2014 8:38 PM CDT 6.25 mg Given 03/05/2014 8:34 AM CDT 03/06/2014 9:12 AM CDT 75 mg clopidogrel (PLAVIX) tablet 75 mg Given 75 mg, Oral, Daily, First dose on Sun03/03/14 at 1500 75 mg Given 03/05/2014 8:33 AM CDT 75 mg Given 03/04/2014 8:12 AM CDT 03/06/2014 8:00 AM CDT 100 mg docusate sodium (COLACE) capsule 100 mg Given 100 mg, Oral, 2 times daily PRN, constipation, stool softening, Starting Sun03/02/14 at 2111, Hold these medications if patient has had loose stool or diarrhea within previous 24 hours., 03/04/2014 8:12 AM CDT 20 mg famotidine (PEPCID) tablet 20 mg Given 20 mg, Oral, 2 times daily, First dose on Sun03/03/14 at 1130 20 mg Given 03/03/2014 9:40 PM CDT 20 mg Given 03/03/2014 11:32 AM CDT 03/04/2014 5:44 PM CDT 160 mg fenofibrate (TRIGLIDE) tablet 160 mg Given 160 mg, Oral, Every evening, First dose (after last modification) on Sun 4 at 1800 160 mg Given 03/03/2014 6:00 PM CDT 03/03/2014 4:11 PM CDT 50 mcg fentaNYL (SUBLIMAZE) 50 mcg/mL injection Given 25-50 mcg 25-50 mcg, Intravenous, Every 3 hours PRN, severe pain (pain score 7-10), Starting Sun03/02/14 at 2111, For 24 hours, For sheath removal or severe chiquis n for first 24 hours post-procedure., 50 mcg Given 03/03/2014 11:26 AM CDT 50 mcg Given 03/03/2014 7:53 AM CDT 03/06/2014 7:52 AM CDT 10 mg glipiZIDE (GLUCOTROL) tablet 10 mg Given 10 mg, Oral, 2 times daily before meals , First dose on Sun03/05/14 at 1700 03/06/2014 6:10 AM CDT 5,000 Units Abdomina l Tissue heparin (porcine) 5,000 unit/mL Given injection 5,000 Units 5,000 Units, Subcutaneous, Every 8 hours, First dose on Sun03/02/14 at 220 0 5,000 Units Abdominal Tissue Given 03/05/2014 8:38 PM CDT 5,000 Units Abdominal Tissue Given 03/05/2014 3:47 PM CDT 03/03/2014 4:32 AM CDT 10 Units Abdomina l Tissue insulin glargine (LANTUS) injection 10 Given Units 10 Units, Subcutaneous, Once, Sun03/03/14 at 0445, For 1 dose 03/02/2014 11:38 PM CDT 5 Units Left Arm insulin glargine (LANTUS) injection 5 Given Units 5 Units, Subcutaneous, Nightly, First dose on Sun03/02/14 at 2330 03/03/2014 11:27 AM CDT 3 Units Left Arm insulin lispro (HumaLOG) injection 1-6 Given Units 1-6 Units, Subcutaneous, 4 times daily before meals and nightly, First dose on Sun03/02/14 at 2345, LEVEL 2 Give in addition to scheduled mealtime insulin per table Glucose Level (mg/dL) Dose <120 No Insulin 121-150 No Insulin 151-200 1 units 201-250 2 units 251-300 3 units 301-350 4 units 351-400 5 units >400 6 units Bedtime Correction - If glucose level is < 200, do not give any correction dose If glucose level is > 200, give full dose of correction dose and check BG @ 0000 and 0300 DO NOT GIVE for any 2 hours post meal fingerstick blood glucose checks If pt NPO or on continuous enteral/parenteral nutrition - give wit h scheduled fingerstick blood glucose check - dose per table, 3 Units Left Arm Given 03/03/2014 7:59 AM CDT 2 Units Left Arm Given 03/02/2014 11:38 PM CDT 03/04/2014 12:12 PM CDT 10 Units Abdomina l Tissue insulin lispro (HumaLOG) injection 10 Given Units 10 Units, Subcutaneous, 3 times daily before meals, First dose on Sun03/03/14 at 1130 10 Units Abdominal Tissue Given 03/04/2014 8:13 AM CDT 10 Units Left Arm Given 03/03/2014 5:00 PM CDT 03/05/2014 8:34 AM CDT 14 Units Left Arm insulin lispro (HumaLOG) injection 14 Given Units 14 Units, Subcutaneous, 3 times daily before meals, First dose (after last modification) on Sun03/04/14 at 1700 14 Units Abdominal Tissue Given 03/04/2014 5:43 PM CDT 03/04/2014 12:12 PM CDT 3 Units Abdomina l Tissue insulin lispro (HumaLOG) injection 2-7 Given Units 2-7 Units, Subcutaneous, 4 times daily before meals and nightly, First dose on Sun03/03/14 at 1700, LEVEL 3 Give in addition to scheduled mealtime insulin per table Glucose Level (mg/dL) Dose <120 No Insulin 121-150 No Insulin 151-200 2 units 201-250 3 units 251-300 4 units 301-350 5 units 351-400 6 units >400 7 units Bedtime Correction - If glucose level is < 200, do not give any correction dose If glucose level is > 200, give full dose of correction dose and check BG @ 0000 and 0300 DO NOT GIVE for any 2 hours post meal fingerstick blood glucose checks If pt NPO or on continuous enteral/parenteral nutrition - give wit h scheduled fingerstick blood glucose check - dose per table, 3 Units Abdominal Tissue Given 03/04/2014 8:14 AM CDT 3 Units Right Arm Given 03/03/2014 9:41 PM CDT 03/06/2014 9:10 AM CDT 6 Units Abdomina l Tissue insulin lispro (HumaLOG) injection 3-18 Given Units 3-18 Units, Subcutaneous, 4 times daily before meals and nightly, First dose on Sun03/04/14 at 1700, LEVEL 5 Give in addition to scheduled mealtime insulin per table Glucose Level (mg/dL) Dose <120 No Insulin 121-150 No Insulin 151-200 3 units 201-250 6 units 251-300 9 units 301-350 12 units 351-400 15 units >400 18 units Bedtim e Correction - If glucose level is < 200, do not give any correction dose If glucose level is > 200, give full dose of correction dose and check BG @ 0000 and 0300 DO NOT GIVE for any 2 hours post meal fingerstick blood glucose checks If pt NPO or on continuous enteral/parenteral nutrition - give wit h scheduled fingerstick blood glucose check - dose per table, 3 Units Left Arm Given 03/05/2014 8:34 AM CDT 6 Units Abdominal Tissue Given 03/04/2014 8:49 PM CDT 03/03/2014 4:32 AM CDT 5 Units Abdomina l Tissue insulin lispro (HumaLOG) injection 5 Given Units 5 Units, Subcutaneous, Once, Sun 4 at 0445, For 1 dose 03/04/2014 8:15 AM CDT 20 Units Abdomina l Tissue insulin NPH (HumuLIN,NovoLIN) injection Given 20 Units 20 Units, Subcutaneous, 2 times daily before meals, First dose on Sun03/03/14 at 1100 20 Units Left Arm Given 03/03/2014 5:00 PM CDT 20 Units Left Arm Given 03/03/2014 12:00 PM CDT 03/05/2014 8:35 AM CDT 24 Units Left Arm insulin NPH (HumuLIN,NovoLIN) injection Given 24 Units 24 Units, Subcutaneous, 2 times daily before meals, First dose (after last modification) on Sun03/04/14 at 0815 24 Units Abdominal Tissue Given 03/04/2014 5:44 PM CDT 03/03/2014 11:45 AM CDT insulin regular (HumuLIN R) 100 unit/mL Given injection Starting Sun03/03/14 at 1132, For 1 dose, Created by mallory anguiano, 03/06/2014 11:55 AM CDT 10 mg lisinopril (PRINIVIL,ZESTRIL) tablet 10 Given mg 10 mg, Oral, Daily, First dose on Sun03/05/14 at 1200, Hold for sbp <90, 10 mg Given 03/05/2014 12:33 PM CDT 03/04/2014 11:26 AM CDT 25 mg losartan (COZAAR) tablet 25 mg Given 25 mg, Oral, Daily, First dose on Sun03/04/14 at 0930, Hold for sbp <90, 03/06/2014 9:12 AM CDT 1,000 mg metFORMIN (GLUCOPHAGE) tablet 1,000 mg Given 1,000 mg, Oral, 2 times daily with meals, First dose on Sun03/05/14 at 1130, Give mid-meal or after meal, 1,000 mg Given 03/05/2014 1:42 PM CDT 03/03/2014 7:53 AM CDT 4 mg ondansetron (ZOFRAN) 4 mg/2 mL injection Given 4 mg 4 mg, Intravenous, Every 6 hours PRN, nausea, vomiting, Starting Sun03/02/14 at 2111, For 24 hours, For first 24 hours post-procedure., 03/05/2014 6:11 PM CDT 4 mg ondansetron (ZOFRAN) 4 mg/2 mL injection Given 4 mg 4 mg, Intravenous, Every 6 hours PRN, nausea, vomiting, nausea, Starting Sun03/05/14 at 1738 03/02/2014 11:06 PM CDT 4 mg ondansetron (ZOFRAN) tablet 4 mg Given 4 mg, Oral, Every 6 hours PRN, nausea, vomiting, Starting Sun03/02/14 at 2111, For 24 hours, For first 24 hours post-procedure., 03/03/2014 4:11 PM CDT 1 tablet oxyCODONE-acetaminophen (PERCOCET) 5-325 Given mg 1 tablet 1 tablet, Oral, Every 6 hours PRN, moderate pain (pain score 4-6), Startin g Sun03/02/14 at 2111, For 24 hours, For first 24 hours post-procedure., 1 tablet Given 03/03/2014 7:53 AM CDT 1 tablet Given 03/02/2014 11:05 PM CDT 03/04/2014 6:33 PM CDT 1 tablet oxyCODONE-acetaminophen (PERCOCET) 5-325 Given mg 1 tablet 1 tablet, Oral, Every 6 hours PRN, moderate pain (pain score 4-6), Startin g Sun03/03/14 at 2204, For 24 hours, For first 24 hours post-procedure., 1 tablet Given 03/04/2014 11:32 AM CDT 1 tablet Given 03/03/2014 10:10 PM CDT 03/06/2014 8:00 AM CDT 1 tablet oxyCODONE-acetaminophen (PERCOCET) 5-325 Given mg 1 tablet 1 tablet, Oral, Every 6 hours PRN, pain , Starting Sun03/04/14 at 2205, Do not exceed 4 GM/DAY of acetaminophen. If 6 5 or older do not exceed 3 GM/DAY. If chronic alcoholic do not exceed 2 GM/DAY., 1 tablet Given 03/06/2014 1:18 AM CDT 1 tablet Given 03/05/2014 7:07 PM CDT 03/06/2014 7:52 AM CDT 40 mg pantoprazole (PROTONIX) EC tablet 40 mg Given 40 mg, Oral, Every morning before breakfast, First dose on Sun03/04/14 at 0915, DO NOT CRUSH OR CHEW., 40 mg Given 03/06/2014 6:10 AM CDT 40 mg Given 03/05/2014 8:33 AM CDT 03/03/2014 11:07 AM CDT 3 mL perflutren protein-a microspheres Given (OPTISON) 0.22 mg/mL injection 1-3 mL 1-3 mL, Intravenous, Once in imaging, contrast, Starting Sun03/03/14 at 1111, For 1 dose 03/04/2014 8:02 PM CDT 80 mg pravastatin (PRAVACHOL) tablet 80 mg Given 80 mg, Oral, Nightly, First dose on Sun03/04/14 at 2100 03/02/2014 10:31 PM CDT 100 mL/hr 100 mL/hr sodium chloride 0.9% infusion New Bag 100 mL/hr, Intravenous, Continuous, Starting 8/25/14 at 2230, For 8 hours, Start after sodium bicarbonate infusion is complete, if ordered. Salin e lock IV after infusion., 03/03/2014 8:00 AM CDT 90 mg ticagrelor (BRILINTA) tablet 90 mg Given 90 mg, Oral, Every 12 hours scheduled, First dose on Sun03/03/14 at 0900 03/04/2014 8:54 PM CDT 5 mg zolpidem (AMBIEN) tablet 5 mg Given 5 mg, Oral, Nightly PRN, sleep, Startin g Sun03/02/14 at 2111, May repeat 5 mg in MALE patients less than 65 years old if not effective in 60 minutes. Do NOT exceed 5 mg daily in FEMALES or patient s older than 65 years old. Do NOT give to patients with confusion or dementia., 5 mg Given 03/03/2014 9:42 PM CDT documented in this encounter
--- OUTSIDE RECORDS SUMMARY | 2019-08-27 20:58 | XMS REPORT | Encounter Summary ---
Author Author [facility] Organization [facility] Address Unknown Phone Unavailable Care Team Providers Care Bottom Ironer Name Role Phone Leanne Xiong PCP Unavailable Encounter Details Care Team Description Date Type Department Julián Angeles MD [address] [facility] [address] [place] [address] [phone] 08/29/2013 [facility] [...]
--- OUTSIDE RECORDS SUMMARY | 2019-08-27 20:58 | XMS REPORT | Encounter Summary ---
Author Author [facility] Organization [facility] Address Unknown Phone Unavailable Care Team Providers Care Biofuels Plant Construction Worker Name Role Phone Leanne Xiong PCP Unavailable Encounter Details Care Team Description Date Type Department 03/04/2014 [facility] [...]
--- OUTSIDE RECORDS SUMMARY | 2019-08-27 20:58 | XMS REPORT | Encounter Summary ---
Author Author [facility] Organization [facility] Address Unknown Phone Unavailable Care Team Providers Care Real Estate Agent Name Role Phone Leanne Xiong PCP Unavailable Encounter Details Care Team Description Date Type Department Emergency, PhysicianMD 03/02/2014 Emergency [facility] [address] [place] [address] Social History Date Tobacco Use Types Packs/Day Years Used Current Every Day Smoker 0.25 14 Drinks/Week oz/Week Comments Alcohol Use once/month Yes Sex Assigned at Date Recorded Not on file Industry Job Start Date Occupation Not on file Not on file Not on file Travel End Travel History Travel Start No recent travel history available. documented as of this encounter Medications at Time of Discharge [...] capsule (43MG) by oral route every day HYDROcodone-acetaminophen Take 1 tablet 0 (NORCO) 7.5-325 mg per by mouth tablet every 8 (eight) hours as needed for pain. 08/16/2011 HYDROcodone-acetaminophen take 1 tablet 90 0 (NORCO) 7.5-325 mg per by oral route tablet every 6 hours as needed for pain 08/29/2013 nitroglycerin (NITROSTAT) place 1 1 0 0.4 MG SL tablet tablet (0.4MG) by sublingual route at the 1st sign of attack; may repeat every 5 min until relief; if pain persists after 3 tablets in 15 min, prompt medical attention is recommended 03/06/2014 pravastatin (PRAVACHOL) take 1 tablet 1 [...] 3 TIMES DAILY NEEDED. MAY CAUSE DROWSINESS. 03/06/2014 atorvastatin (LIPITOR) 40 Take 40 mg by 0 MG tablet mouth nightly. 04/16/2013 02/10/2015 atorvastatin (LIPITOR) 40 TAKE 1 TABLET 90 0 MG tablet DAILY AT BEDTIME. 01/15/2014 02/10/2015 atorvastatin (LIPITOR) 40 take 1 tablet 30 1 MG tablet (40MG) by oral route every day 07/25/2013 02/10/2015 atorvastatin (LIPITOR) 40 take 1 tablet 30 5 MG tablet (40MG) by oral route every day 04/23/2013 02/10/2015 BYSTOLIC 5 mg tablet TAKE 1 TABLET 28 0 DAILY 03/06/2014 carvedilol (COREG) 6.25 Take 6.25 mg 0 MG tablet by mouth 2 (two) times a day. 06/16/2011 02/10/2015 carvedilol (COREG) 6.25 take 1 tablet 60 11 MG tablet (6.25MG) by oral route 2 times every day with food 09/17/2012 02/10/2015 cetirizine (ZYRTEC) 10 MG TAKE 1 TABLET 30 0 tablet DAILY. 03/06/2014 clopidogrel (PLAVIX) 75 Take 75 mg by 0 mg tablet mouth daily. 03/06/2014 famotidine (PEPCID) 40 MG Take 40 mg by 0 tablet mouth nightly. 08/29/2013 02/10/2015 famotidine (PEPCID) 40 MG take 1 tablet 30 11 tablet (40MG) by oral route every day at bedtime 03/06/2014 fenofibrate (TRICOR) 54 Take 43 mg by 0 MG tablet mouth daily. 04/01/2013 02/10/2015 fenofibrate (TRIGLIDE) TAKE 1 TABLET [...] route 3 times every day with food 03/05/2014 03/06/2014 insulin lispro (HUMALOG) Inject 14 10 mL 12 100 unit/mL Units under injectionIndications: the skin 3 type 2 diabetes mellitus (three) times a day before meals. 03/05/2014 03/06/2014 insulin lispro (HUMALOG) Inject 3-18 10 mL 12 100 unit/mL Units under injectionIndications: the skin 4 type 2 diabetes mellitus (four) times a day before meals and nightly. 03/05/2014 03/06/2014 insulin NPH Inject 24 10 mL 12 (HUMULIN,NOVOLIN) 100 Units under unit/mL the skin 2 injectionIndications: (two) times a type 2 diabetes mellitus day before breakfast and dinner. 04/23/2013 02/10/2015 JANUMET XR 100-1,000 mg TAKE 1 TABLET 28 0 24 hr tablet DAILY 09/17/2012 02/10/2015 LEGACY MED TAKE 1 TABLET 90 0 3 TIMES DAILY NEEDED. 10/07/2012 02/10/2015 LEGACY MED TAKE 1 30 0 CAPSULE DAILY. 03/06/2014 losartan (COZAAR) 25 MG Take 25 mg by 0 tablet mouth daily. 08/29/2013 02/10/2015 losartan (COZAAR) 25 MG take [...] CAPSULE WEEKLY. documented as of this encounter Plan of Treatment Not on filedocumented as of this encounter Visit Diagnoses Not on filedocumented in this encounter
--- OUTSIDE RECORDS SUMMARY | 2019-08-27 20:58 | XMS REPORT | Encounter Summary ---
Author Author [facility] Organization [facility] Address Unknown Phone Unavailable Care Team Providers Care Teletypewriter Installer Name Role Phone Leanne Xiong PCP Unavailable Encounter Details Care Team Description Date Type Department [facility] Provider, MD Johanna 03/03/2014 [facility] Social History Date Tobacco Use Types Packs/Day [...] Procedure Name Priority Date/Time Associated Diag nosis ECHO EJECTION FRACTION Routine 03/03/2014 HISTORICAL 10:45 AM CDT documented in this encounter Results * Echo Ejection Fraction historical (03/03/2014 10:45 AM CDT) Ejection 45Comment: ECHO COMPLETE WITH PROSOLV Fraction DOPPLER AND COLOR FLOW Specimen Performing Organization Address City/State/Zipcode Ph one Number PROSOLV documented in this encounter Visit Diagnoses Not on filedocumented in this encounter
--- OUTSIDE RECORDS SUMMARY | 2019-08-27 20:58 | XMS REPORT | Encounter Summary ---
Author Author [facility] Organization [facility] Address Unknown Phone Unavailable Care Team Providers Care Tent Finisher Name Role Phone Leanne Xiong PCP Unavailable Encounter Details Care Team Description [place] [address] [facility] [address] [place] [address] [phone] 08/08/2013 [facility] [...]
--- OUTSIDE RECORDS SUMMARY | 2019-08-27 20:58 | XMS REPORT | Encounter Summary ---
Author Author [facility] Organization [facility] Address Unknown Phone Unavailable Care Team Providers Care Pet Ambassador Name Role Phone Leanne Xiong PCP Unavailable [...]
--- OUTSIDE RECORDS SUMMARY | 2019-08-27 20:58 | XMS REPORT | Encounter Summary ---
Author Author [facility] Organization [facility] Address Unknown Phone Unavailable Care Team Providers Care Cnc Specialist Name Role Phone Leanne Xiong PCP Unavailable Encounter Details Care Team Description Date Type Department 03/05/2014 [facility] [...]
--- OUTSIDE RECORDS SUMMARY | 2019-08-27 20:58 | XMS REPORT | Encounter Summary ---
Author Author [facility] Organization [facility] Address Unknown Phone Unavailable Care Team Providers Care Manager Of Loss Prevention Operations Name Role Phone Leanne Xiong PCP Unavailable Encounter Details Care Team Description Date Type Department Tamiko Morin MD [address] [facility] [address] [place] [address] [phone] 08/28/2013 [facility] [...]
--- OUTSIDE RECORDS SUMMARY | 2019-08-27 20:58 | XMS REPORT | Encounter Summary ---
Author Author [facility] Organization [facility] Address Unknown Phone Unavailable Care Team Providers Care Ferry Terminal Supervisor Name Role Phone Leanne Xiong PCP Unavailable Encounter Details Care Team Description Date Type Department Freedom Torres MD NO FORWARDING ADDRESS 03/03/2014 [facility] Visit Social History [...]
--- OUTSIDE RECORDS SUMMARY | 2019-08-27 20:59 | XMS REPORT | Encounter Summary ---
Author Author [facility] Organization [facility] Address Unknown Phone Unavailable Care Team Providers Care Airline Pilot Name Role Phone Leanne Xiong PCP Unavailable Encounter Details Care Team Description Date Type Department [facility] ProviderJohanna MD 07/24/2013 [facility]Hist [facility] Result Social History Date Tobacco Use Types Packs/Day [...] Procedure Name Priority Date/Time Associated Diag nosis CATHETERIZATION Routine 07/24/2013 HISTORICAL documented in this encounter Results * Catheterization historical (07/24/2013) Specimen Narrative Performed At Procedure Category: Invasive NEXTGEN Procedure: Cardiac cath Procedure Summary: Left main: The vesse l was very large sized and excessively ectatic. Angiography showed no evidence of disease. Proximal LAD: The vessel was very large sized and moderately ectatic . There was a discrete 40% stenosis in the middle third of the vessel segment, just after D1. M id LAD: There was a moderately long 30% stenosis in the middle third of the ves deangelo segment. 1st diagonal: Normal. 2nd diagonal: Angiography showed minor low nal irregularities. Circumflex: Vessel was medium sized. 1st obtuse marginal: Vessel was medium sized. Discrete 95% s tenosis in proximal third of vessel segment. YOAN grade 3 flow through vess el (brisk flow). RCA: Vessel was large sized (dominant). Moderately long 40- 5 0% stenosis in middle third of vessel segment. Distal RCA: There was 25 % stenosis. Right PDA: Ves deangelo was small to medium sized. Angiography showed minor luminal irregu larities. 2nd posterolateral segment: The vessel was medium medium sized. Angiogr aphy showed minor luminal irregularities. Procedure Note Interface, Rad Conversion - 01/26/2015 12:59 PM CDT Procedure Category: Invasive Procedure: Cardiac cath Procedure Summary: Left main: The vessel was very large sized and excessively ectatic. Angiography showed no evidence of disease. Proximal LAD: The vessel was very large sized and moderately ectatic. There was a discrete 40% stenosis in the middle third of the vessel segment, just after D1. Mid LAD: There was a moderately long 30% stenosis in the middle third of the vessel segment. 1st diagonal: Normal. 2nd diagonal: Angiography showed minor luminal irregularities. Circumflex: Vessel was medium sized. 1st obtuse marginal: Vessel was medium sized. Discrete 95% stenosis in proximal third of vessel segment. YOAN grade 3 flow through vessel (brisk flow). RCA: Vessel was large sized (dominant). Moderately long 40- 50% stenosis in middle third of vessel segment. Distal RCA: There was 25 % stenosis. Right PDA: Vessel was small to medium sized. Angiography showed minor luminal irregularities. 2nd posterolateral segment: The vessel was medium medium sized. Angiography showed minor luminal irregularities. Performing Organization Address City/State/Zipcode Ph one Number NEXTGEN documented in this encounter Visit Diagnoses Not on filedocumented in this encounter
--- OUTSIDE RECORDS SUMMARY | 2019-08-27 20:59 | XMS REPORT | Encounter Summary ---
Author Author [facility] Organization [facility] Address Unknown Phone Unavailable Care Team Providers Care Galley Hand Name Role Phone Leanne Xiong PCP Unavailable Encounter Details Care Team Description Date Type Department Tamiko Morin MD [address] [facility] [address] [place] [address] [phone] 07/24/2013 [facility] [...]
--- OUTSIDE RECORDS SUMMARY | 2019-08-27 20:59 | XMS REPORT | Encounter Summary ---
Author Author [facility] Organization [facility] Address Unknown Phone Unavailable Care Team Providers Care Sports Equipment Racker Name Role Phone Leanne Xiong PCP Unavailable Encounter Details Care Team Description Date Type Department [facility] ProviderJohanna MD 07/24/2013 [facility] Result Social History [...] Procedure Name Priority Date/Time Associated Diag nosis CV CT HISTORICAL Routine 07/24/2013 documented in this encounter Results * CV CT historical (07/24/2013) Specimen Narrative Performed At Procedure Category: CT NEXTGEN Procedure: Chest Procedure Summary: 1. No evidence for a cute aortic syndrome. The thoracic stent graft is in expected position. No evide nce for endoleak on early contrast is enhancement. 2. Interval enlargement of a right axil du lymph node now measuring up to 4.2 cm. Consider tissue sampling if not previously performed. 3. Small 2 mm indeterminate left upper lobe pulmonary nodule. If patient has a history of malignancy advise thre e-month followup chest CT if there is no history of malignancy a [address] would be advised. Procedure Note Interface, Rad Conversion - 01/26/2015 12:59 PM CDT Procedure Category: CT Procedure: Chest Procedure Summary: 1. No evidence for acute aortic syndrome. The thoracic stent graft is in expected position. No evidence for endoleak on early contrast is enhancement. 2. Interval enlargement of a right axill marie lymph node now measuring up to 4.2 cm. Consider tissue sampling if not previously performed. 3. Small 2 mm indeterminate left upper l obe pulmonary nodule. If patient has a history of malignancy advise three-month followup chest CT if there is no history of malignancy a [address] would be advised. Performing Organization Address City/State/Zipcode Ph one Number NEXTGEN documented in this encounter Visit Diagnoses Not on filedocumented in this encounter
--- OUTSIDE RECORDS SUMMARY | 2019-08-27 20:59 | XMS REPORT | Encounter Summary ---
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 CVPREP Recovery H4S - Encounter [id number] [facility] 07/26/2013 [place] [address] Social History Date Tobacco Use Types Packs/Day Years Used Never Assessed Sex Assigned at Date Recorded Not on file Industry Job Start Date Occupation Not on file Not on file Not on file Travel End Travel History Travel Start No recent travel history available. documented as of this encounter Discharge Summaries * Tamiko Morin MD - 09/03/2013 11:52 AM OIL WELL SERVICES SUPERVISOR REPORT Name: GIACOMO TRAYLOR Date of : 1965 Attending Physician: Barbara Goff MD Date of Admission: 07/24/2013 Date of Discharge: 07/26/2013 SUMMARY: Mr. Traylro is a 48-year-old male with a history of type B aortic dissection versus penetrating ulcer in 2010 status post stent graft, diabetes, former tobacco use, hypertension and dyslipidemia that presented with chest discomfort, jaw discomfort, as well as right upper and lower extremity discomfort. The discomfort had been constant for several days with pleuritic features. He had recently been evaluated at an outside hospital and underwent an echocardiogram showing normal left ventricular systolic function and no pericardial effusion. A CT angiogram of his chest showed no evidence of aortic dissection. He later presented here with recurrent symptoms. At the time of presentation, his initial troponin was 1.14, and subsequently bridger to a peak of 6.10. He was initially treated with a nitroglycerin drip. He underwent a CT angiogram of his chest, abdomen, and pelvis, which showed no evidence of acute aortic syndrome. There was no evidence for endoleak. Given the chest discomfort with pleuritic features, he also underwent an echocardiogram, which showed a left ventricular ejection fraction of 75% with normal wall motion and normal wall thickness. Right ventricular size and function were normal. There was mild diastolic dysfunction. There were no significant valvular abnormalities. He also underwent a lower extremity venous duplex, which showed no evidence of DVT. D-dimer was negative. After review of his CT and echocardiogram, he was started on a heparin drip and underwent cardiac catheterization. The left main was excessively ectatic, but showed no evidence of disease. The proximal LAD showed a 40% stenosis. The mid LAD contained a 30% stenosis. The first obtuse marginal branch showed a 95% stenosis in the proximal third of the vessel segment. The right coronary artery showed a 40 to 50% stenosis in the mid segment. The distal right coronary artery contained a 25% stenosis. The right PDA showed minor luminal irregularities. He underwent bare-metal stent placement to the first obtuse marginal branch. He was started on aspirin and Brilinta. I discussed indefinite therapy with a baby aspirin daily. I have also discussed uninterrupted therapy with twice daily Brilinta for a minimum of 1 month and ideally for 1 year. He has had recurrent chest discomfort, which also involves right side of his chest as well as the right axillary region. There are pleuritic features. I am not clear if this could be related to pericarditis, but discussed the use of colchicine. He has a history of diabetes as well as hypertension. He was on Bystolic at home, which I have discussed changing to carvedilol. He previously informed me that lisinopril was stopped as it made him fall asleep. Today, he relates that it may have been the carvedilol. I am not clear which medication may have caused side effects or if his episodes of falling asleep may have been related to lower blood pressures. A couple of days ago, he informed me that his symptoms got better when changing lisinopril. Regardless, I have asked that he start carvedilol as well as losartan. I have provided him with a lab slip to have a basic metabolic profile repeated in 1 week. His home medications are not completely clear. From his description, he was on fenofibrate as well as simvastatin. I have recommended discontinuation of simvastatin and addition of atorvastatin. I discussed with him that his triglyceride level may improve with the use of atorvastatin as well as weight loss and improvement in his diabetes. He was evaluated by the hospitalist here, who has recommended discontinuation of Janumet and continuation of metformin. His hemoglobin A1c here was 8.3. I had also asked the hospitalist to evaluate him due to findings on his CT of his chest, abdomen, and pelvis. On CT of his chest, he was noted to have enlargement of a right axillary lymph node when compared to a prior study from 2010. He also had multiple enlarged right subpectoral lymph nodes. In addition, he had a 2 mm indeterminate left upper lobe pulmonary nodule. It was recommended that he have a followup CT in [address] of his abdomen and pelvis, he was noted to have hepatomegaly with severe, diffuse hepatic steatosis. There was also evidence of diverticulosis. I had asked the hospitalist to evaluate the patient due to the findings on his CT scan. It was recommended that he have flow cystometry performed, which is pending. He was recommended that if his lab is normal, a needle biopsy could be performed as an outpatient. The patient also had a significant sore throat. A strep screen as well as influenza testing were negative. Hospitalist has recommended treatment with azithromycin. His QTC interval on most recent electrocardiogram was normal. As above, he was noted to have fatty liver. He also has elevated liver function tests. He states he has been losing weight. It has been recommended that he follow up with the webbing supervisor early next week. Hepatitis B surface antigen was negative. His liver function tests have normalized on most recent check. Iron studies were normal. Ferritin was normal. On review of his other laboratory evaluation, he had a mildly elevated TSH of 5.12. This will need to be followed as an outpatient. His lipid panel showed a total cholesterol of 137, triglycerides 376, HDL 22, and LDL 40. As above, I have recommended changing simvastatin to atorvastatin. He is also on fenofibrate. He today continues to note sore throat as well as pleuritic chest discomfort. As above, I have recommended a trial of colchicine to see if this will help improve his discomfort. PHYSICAL EXAMINATION: VITAL SIGNS: His blood pressures have been controlled with his most recent blood pressure 130/77. He has been afebrile. HEART: Rhythm is regular. LUNGS: Clear. EXTREMITIES: Warm without edema. His right radial site has no evidence of hematoma. On laboratory evaluation today, his basic metabolic profile shows a creatinine of 1.2 and a potassium of 4.0. His CBC shows a hemoglobin of 14.1. He will be dismissed today. DISMISSAL DIAGNOSES: 1. Non-ST elevation myocardial infarction. 2. Coronary artery disease. 3. History of type B aortic dissection. 4. Lymphadenopathy. 5. Upper respiratory infection. 6. Elevated liver function tests with fatty liver. 7. Diabetes. 8. Hypertension. 9. Dyslipidemia. 10. Pulmonary nodule. 11. Obstructive sleep apnea. DISMISSAL DIET: Heart healthy ADA diet. ACTIVITIES: No repetitive movements of the right wrist. FOLLOWUP: Dr. Beltrán at [facility] [place] on August 11 at 1 p.m. Followup basic metabolic profile in 1 week. Dismissal coordination time greater than 75 minutes. DISCHARGE MEDICATIONS: Electronically generated summary for 1. ASPIRIN LOW-STRENGTH ORAL 81 mg Daily 2. ATORVASTATIN ORAL 40 mg Daily PM 3. AZITHROMYCIN ORAL 250 mg Daily TAKE 500MG X1, THEN 250 MG DAILY X 4 DAYS 4. BRILINTA ORAL 90 mg 2 times per day 5. COLCHICINE ORAL 0.6 mg 2 times per day 6. COREG ORAL 6.25 mg 2 times per day for blood pressure and overal heart function 7. FENOFIBRATE MICRONIZED ORAL 45 mg Daily 8. LOSARTAN ORAL 25 mg Daily 9. METFORMIN ORAL 500 mg 2 times per day RESTART ON THURSDAY 07/27 AM 10. NITROGLYCERIN SL 0.4 tablet, sublingual PRN PLACE ONE UNDER TONGUE FOR CHEST PAIN. IF NO RELIEF IN 5 MIN MAY REPEAT X1 11. OXYCODONE ORAL 5 mg Every 4 hours PRN 12. PROTONIX ORAL 40 mg Before breakfast 13. SUCRALFATE ORAL 1 gram 4 times per day BEFORE MEALS AND AT BEDTIME 14. XANAX ORAL 1 mg Every 6 hours PRN May take every 6 hours as needed for anxiety. May continue 15. ZOFRAN ORAL 4 mg Every 8 hours PRN Tamiko Morin MD [id number] Authenticated and Edited by Tamiko Morin MD On 07/31/13 9:33:08 AM WELL SERVICES SUPERVISOR documented in this encounter Medications at Time of Discharge Start Date End Date Medication Sig Dispensed Refills 07/25/2013 aspirin 81 MG chewable chew 1 tablet 30 4 tablet (81MG) by oral route every day 08/16/2011 carvedilol (COREG) 6.25 take 1 tablet 60 11 MG tablet (6.25MG) by oral route 2 times every day with food 08/16/2011 HYDROcodone-acetaminophen take 1 tablet 90 0 (NORCO) 7.5-325 mg per by oral route tablet every 6 hours as needed for pain 10/25/2012 traMADol (ULTRAM) 50 mg Take by 30 0 tablet mouth. 12/30/2012 02/10/2015 ALPRAZolam (XANAX) 1 MG TAKE 1 TABLET 60 0 tablet 3 TIMES DAILY NEEDED. MAY CAUSE DROWSINESS. 04/16/2013 02/10/2015 atorvastatin (LIPITOR) 40 TAKE 1 TABLET 90 0 MG tablet DAILY AT BEDTIME. 07/25/2013 02/10/2015 atorvastatin (LIPITOR) 40 take 1 [...] TAKE 1 TABLET 30 0 tablet DAILY. 04/01/2013 02/10/2015 fenofibrate (TRIGLIDE) TAKE 1 TABLET [...] MED TAKE 1 30 0 CAPSULE DAILY. 07/25/2013 02/10/2015 metFORMIN (GLUCOPHAGE) take 1 tablet [...] oral route every day in the evening 07/25/2013 02/10/2015 ticagrelor (BRILINTA) 90 take 1 tablet 60 5 mg Tab tablet (90MG) by oral route 2 times every day 03/01/2012 02/10/2015 triamcinolone (KENALOG) APPLY 15 0 0.5 % cream SPARINGLY AND MASSAGE IN TWICE DAILY. 02/03/2013 02/10/2015 VITAMIN D2 50,000 unit TAKE 1 4 0 capsule CAPSULE WEEKLY. documented as of this encounter H&P Notes * Barbara Goff MD - 09/04/2013 3:32 PM OIL WELL SERVICES SUPERVISOR REPORT Name: GIACOMO TRAYLOR Date of : 1965 Attending Physician: Barbara Goff MD Date of Admission: 07/24/2013 01:46:00 HISTORY OF PRESENT ILLNESS: A 47-year-old male with history of hypertension, hyperlipidemia, diabetes on metformin and history of aortic dissection versus penetrating ulcer of descending thoracic aorta in 2010 presents with chest pain. In January 2011, he presented with abdominal and chest pain with atypical pain in limbs and was found to have descending aortic type B dissection. He was discharged with conservative management and presented again few days later with worsening chest and abdominal pain and underwent TAG stenting of descending thoracic aorta with stent graft. This was done by Dr. Lenin Barone. He has done well ever since, however, he is now presented on 07/19/12 to [facility] with chest pain and throat pain with arm tingling and bilateral discomfort that has been worsening with position of lying down and getting better with sitting up and this was extensively investigated at [facility] including cardiac enzymes, which were reportedly normal, normal echocardiogram and a CT chest with contrast showed no evidence of dissection or aneurysm in the thoracic aorta. He was discharged on July 22; however, he presented back with worsening chest pain a day later and feeling unwell. EKG was performed. He was given 325 mg of aspirin and was given fentanyl in repeated doses for control of his pain and he was transferred here for further management. PAST MEDICAL HISTORY: Diabetes, hypertension, hyperlipidemia and aortic stent graft placement in 2010. SOCIAL HISTORY: He is single. He has 4 kids. 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 He is an active smoker, however, says that he has quit since last couple of weeks. He denies alcohol use and denies substance abuse. FAMILY HISTORY: Mother of [place] at age 50. Father of liver disease at 67. REVIEW OF SYSTEMS: A 10-point review of systems was performed and was negative except as noted below. Cough, chest pain, pressure, snoring and weakness. MEDICATIONS: Aspirin 81 mg daily, Lopressor 50 mg b.i.d., Lipitor 40 mg once daily, sucralfate 1 g 4 times a day, Pepcid 40 mg once a day, Xanax 0.5 mg 3 times p.r.n., 30 mg once daily and metformin 500 mg twice daily. He was given aspirin ____ at the outside hospital and also nitro drip was started, which is running at 60 mcg. ALLERGIES: He is not allergic to contrast dye and HAS ALLERGY TO BEE VENOM ONLY. Testing today includes EKG which was personally reviewed and showed poor R-wave progression and minor ST-T changes in anterior leads. CTA was reviewed which showed no aneurysm or dissection in the descending thoracic aorta, however, there seems to be a stent graft, which seems patent without any suggestion of obvious dissection. LABORATORY DATA: Sodium 138, potassium 5.1, ALT 70, BUN 16, creatinine 0.9 and glucose 202. White cell count 10, hemoglobin 14, hematocrit 42 and platelets 289. Echocardiogram at [facility] on 07/22/13 showed EF of 55% with no significant valvular abnormalities. PHYSICAL EXAMINATION: VITALS: Heart rate 66 beats per minute, blood pressure 135/86 and 97% saturation on room air. APPEARANCE: Obese. PSYCHOLOGICAL: Appropriate. Pupils equal. No thyromegaly. RESPIRATORY: Decreased bilateral breath sounds. GASTROINTESTINAL: Soft, large abdomen and positive bowel sounds. SKIN: Warm. NEUROLOGY: Intact. CARDIOVASCULAR: Regular rhythm with no rubs, murmur or gallops. EXTREMITIES: No edema, 2+ pulses bilaterally in carotid, radial and femoral vessels. IMPRESSION AND PLAN: A 47-year-old male with history of hyperlipidemia, hypertension, diabetes and history of type B aortic dissection versus penetrating ulcer status post stent graft in January 2011, now presents with atypical chest pain and bilateral arm pain. 1. Chest pain and arm pain unlikely to be acute coronary syndrome; however, we will continue to repeat serial enzymes and electrocardiogram to rule out acute coronary syndrome. A CTA chest was reported to not show any aortic dissection or aneurysm in proximal thoracic aorta. I have reviewed the films and do not find any obvious abnormality; however, in view of his previous history, we will not give him heparin or dual antiplatelet therapy. We will consult vascular/cardiothoracic surgery in the morning and review of outside CTA chest should be performed. 2. Hypertension. We will follow blood pressure while he is in the house. Continue home medications, which includes Lopressor 50 mg b.i.d., diabetes on metformin, continue metformin. Follow glucose checks. Barbara Goff MD Dictated By: Yisel Napoles MD [id number] CC: WELL SERVICES SUPERVISOR * Lenin Barone MD - 09/04/2013 3:32 PM OIL WELL SERVICES SUPERVISOR REPORT Name: GIACOMO TRAYLOR Date of : 1965 Attending Physician: Barbara Goff MD Date of Service: REASON FOR EVALUATION AND MANAGEMENT: REASON FOR CONSULTATION: Chest, shoulder, back, right leg, epigastric pain with a history of thoracic stent graft for penetrating ulcer in 2010. HISTORY OF PRESENT ILLNESS: I appreciate the opportunity to be asked to evaluate Mr. Traylor who was transferred here last night for further evaluation of his ongoing chest discomfort. He is a 48-year-old male who presented to our service emergently back in 2010 with the initial diagnosis of an ascending aortic dissection. He was subsequently found to not have an aortic dissection, but rather a penetrating ulcer with descending thoracic aortic hematoma in the proximal third of his descending thoracic aorta. This was successfully managed because of ongoing discomfort with a [place] CTAG graft through a right femoral artery cutdown. Postoperatively, as I recall, he had some persistent atypical discomfort, but apparently ultimately recovered from all of those events and had been doing well until visiting his daughter in [place], [place] last Sunday, when while eating breakfast, he developed acute back, shoulder, epigastric pain with radiation down his right and left arm as well as down his right leg. He was evaluated at [facility] and at that time on 07/19/2013 had a CTA of his chest which demonstrated no new aortic pathology. The CT scan was down through his celiac axis, but no further South. His previously placed stent graft was well in place. There was no new ascending or thoracic aortic pathology and it appeared that his celiac axis and upper abdominal aorta was normal without any hematomas, new dissections or ulcerations. He continued to have fairly unrelenting chest pain. There apparently has been at least one elevated troponin. He describes his pain as fairly sharp and intense; it is reproducible with palpation of his back as well as his epigastric region in the subxiphoid area. His abdomen is nontender. He has nausea and wants to vomit when he is or moved which he attributes to the IV nitroglycerin he is currently on. He continues to have chest discomfort as well as shoulder pain and back pain. His blood pressure seems reasonably well controlled here in the Intensive Care Unit. He just arrived at midnight last night and apparently has had an abdominal ultrasound, the results of which are pending. PAST MEDICAL HISTORY: His past medical history is positive for obesity, hypertension, and oral medication controlled diabetes. In addition, he has a history of dyslipidemia. He has no history of heart disease, although his body habitus, hypertension, and dyslipidemia would suggest he is at risk for that. His EKG shows poor R-wave progression. Laboratory values are unremarkable with a platelet count 289, hematocrit of 42 and a creatinine of 0.9. His blood sugars are elevated at 202. He had a recent echo which shows well preserved LV function with no valvular abnormalities. SOCIAL HISTORY: He is currently single. Denies substance or alcohol abuse. He does have an active tobacco abuse history. FAMILY HISTORY: Positive for premature coronary disease in mother who at age 50 from a myocardial infarction and father who at 67 from liver disease. REVIEW OF SYSTEMS: A 14-point review of systems is unremarkable except as noted above and for the following pertinence he has significant snoring suggestive of sleep apnea, chronic cough, generalized weakness, and nausea with any movement. ALLERGIES: He is allergic to bee stings, but denies medication, contrast or latex allergies. CURRENT MEDICATIONS: Listed in the hard chart. PHYSICAL EXAMINATION: GENERAL: He is an obese male currently in bed 8 in the CICU on an IV nitroglycerin drip. VITAL SIGNS: Blood pressure is 132/65. Heart rate is regular in the 60s. Respirations are unlabored lying flat at 16. He is currently on room air. SKIN: Warm and dry to the touch. HEENT: Head is normocephalic and atraumatic. Pupils are equal, round and reactive to light and accommodation. Extraocular movements are intact. Sclerae anicteric . NECK: Supple without adenopathy, JVD, or carotid bruits. LUNGS: Chest is clear to auscultation and percussion without rales, rhonchi, or wheezing. CARDIOVASCULAR: Heart tones are normal without S3, S4 or murmurs. He has pain when you palpate his chest wall or his xiphoid region in addition to the small of his upper back. Currently complaining of right shoulder, epigastric and back pain. This pain is similar now as it was last Sunday and he has not really gotten a lot of relief. ABDOMEN: Obese but soft, nontender, positive bowel sounds without masses or organomegaly and no tenderness except in the xiphoid region. NEUROLOGICAL: He is alert and oriented x3. Cranial nerves II-XII are intact and he is grossly nonfocal. VASCULAR: He has 2+ carotid, 2+ radial, and 2+ femoral pulses. He has a well-healed right groin incision. EXTREMITIES: Without clubbing, cyanosis or edema. SUMMARY: Mr. Traylor is a 48-year-old male with multiple risk factors for coronary disease who has a history of a penetrating proximal descending thoracic aortic ulcer with hematoma and ongoing pain that required urgent thoracic stent grafting in 2010. His most recent CT done five days ago at an outside facility of his chest demonstrates no new aortic pathology. He certainly could develop a penetrating ulcer or spontaneous dissection in areas of his abdominal aorta not previously visualized by the outside CT, but his symptom complex is more consistent with perhaps post-[place] pericarditis particularly in light of his elevated troponin. I have ordered a repeat CTA of his chest, abdomen and pelvis to definitively rule out any new aortic pathology. If that scan is unremarkable, then alternative explanations for his current situation will need to be elucidated. I appreciate the opportunity to evaluate Mr. Traylor and on behalf of our group, very sincerely yours, Lenin Barone MD [id number] CC: cc: [facility],, Tamiko Morin MD WELL SERVICES SUPERVISOR * Reggie Vang MD - 09/03/2013 11:52 AM OIL WELL SERVICES SUPERVISOR REPORT Name: GIACOMO TRAYLOR Date of : 1965 Attending Physician: Barbara Goff MD Date of Admission: 07/24/2013 Date of Interval Summary: 07/26/2013 I had seen the patient in consultation for Dr. Morin regarding his multiple medical problems and complaints not related to his cardiac presentation. He had presented with chest pain and had evidence of a non-ST elevation [place]. He had undergone catheterization with PCI. He continues to complain of chest pain, which is clearly not cardiac. There may be a pleuritic component, although he does have chest wall tenderness, which stimulates his pain. He is also complaining of right shoulder pain with associated tenderness and pain with movement. He also has a 2-week history of a sore throat, postnasal drainage with cough. He does have lymphadenopathy with a 4.2-cm lymphnode in his right axilla. This had been identified on a CT scan of his chest in January 2011 when he had undergone a graft placement for possible aortic dissection. At that time, it was 2.5 cm and again it has increased to 4.2 cm. He has no other significant adenopathy identified on CT scan of his chest, abdomen or pelvis. While, I just reassuring that the lymphnode was present previously and it has enlarge somewhat. Pending lab include serum protein electrophoresis and flow cytometry on peripheral blood. I think the lymphnode should be watched and possibly should have a needle biopsy performed by interventional radiology as an outpatient. He also has transaminitis with hepatomegaly. This is likely due to fatty infiltration, and he does have hyperlipidemia associated with his underlying diabetes mellitus. There were some additional studies performed because his father apparently of nonalcoholic liver disease. His iron studies were normal suggesting he does not have hemochromatosis. An MARISA is pending as well as a hepatitis profile to rule out autoimmune or viral hepatitis, although again I think his primary liver problem is the fatty infiltration identified on the CT scan of his chest. The patient was told to obtain a primary care physician for followup of these problems. He does have underlying diabetes mellitus, which is not controlled, with his hemoglobin A1c of 8.3. His lipids are not controlled with total cholesterol of 137, triglycerides 376, HDL of 22, LDL of 40. He was advised to continue to lose weight, watch his diet, and to exercise for improved control of his lipids and diabetes mellitus. A nurse did call me when he was being discharged by Dr. Morin after I had seen the patient. Patient states that he was on medications which were not on his record at the time of admission such as Bystolic, but has now been changed to carvedilol and on Janumet, but he is being started on metformin. He has no insurance and has concerns about expense of his medications, so I think the metformin is a reasonable alternative since it is generic. He was given a prescription for oxycodone 5 mg #30 one every 4 hours p.r.n. for pain to avoid acetaminophen use because of his transaminitis and was given Zofran 4 mg 1 every 8 hours p.r.n. nausea. Again, his current complaints are noncardiac and are primarily chronic, which do not require further hospitalization. He has been prescribed azithromycin for his cough and sore throat in the event that he might have pertussis. His swabs for strep and influenza have been negative. Reggie Vang MD [id number] CC: cc: Tamiko Morin MD WELL SERVICES SUPERVISOR documented in this encounter Consult Notes * Reggie Vang MD - 09/03/2013 11:53 AM OIL WELL SERVICES SUPERVISOR REPORT Name: GIACOMO TRAYLOR Date of : 1965 Attending Physician: Barbara Goff MD Date of Admission: 07/24/2013 Pipe Straightener: Reggie Vang MD Date of Consultation: 07/25/2013 Patient is a 48-year-old patient seen at the request of Dr. Morin for evaluation of adenopathy. HISTORY OF PRESENT ILLNESS: The patient was admitted here on 07/24/2013 and transferred from [facility]. He apparently was visiting his daughter here who says that he lives here. He developed chest pain and was hospitalized there and underwent extensive evaluation with CT scan and echocardiogram, which were negative. He was discharged, but returned with recurrent chest pain and was transferred here. He subsequently, he has undergone a cardiac catheterization, which revealed 95% lesion in his obtuse marginal branch, which was treated with bare-metal stent. He has some nonocclusive disease with 40% LAD proximally and 25% mid LAD and 50% mid right coronary artery stenosis. The patient does have type diabetes mellitus, hypertension, hyperlipidemia and obstructive sleep apnea. 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 Lenin Barone. He has had subsequent scanning of this, which shows the graft is in place and there is no other aortic pathology. For about 2 weeks, he has had a sore throat, upper respiratory congestion, left ear pain. He has had some low-grade fever and chills with rigors. Also for 2 weeks, he has had some night sweats occurring about 1 time a week that had been drenching. He did not have any chronic fever, chills or sweats. When he was here 2-1/2 years ago, he had a 2.5-cm right axillary lymph node noted on the CT scan. On current scanning, this measures 4.[address] scan of his abdomen and pelvis shows no significant adenopathy. PAST SURGICAL HISTORY: Aortic stent graft. SOCIAL HISTORY: He currently is unemployed. 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 He is a full code. He discontinued smoking 2 months ago after 12 years of 1 pack a day. No alcohol or illicit drug use. Mother at 50 with an [place]. Father at 67 with liver disease. He did not consume alcohol. REVIEW OF SYSTEMS: He has lost 45 pounds in the last 7 months by dieting and exercise. He has had the cough as above for 2 weeks, which is essentially nonproductive secondary to postnasal drainage. He has had some intermittent pleuritic chest pain. He has had some nausea and vomiting prior to admission here. He does have intermittent gastroesophageal reflux. Gastroesophageal reflux disease, uses Zantac p.r.n., had some numbness and tingling in his lower extremities of 4-5 months. He does check his glucose 5-6 times a day that range from 130 to 160. He has no hypoglycemia, no known history of thyroid disease. MEDICATIONS: Listed in the chart in computer. ALLERGIES: BEE VENOM. PHYSICAL EXAMINATION: GENERAL: Currently, he is alert, oriented, no acute distress. VITAL SIGNS: Temperature 98.4, pulse 71, respirations 20, blood pressure 127/59, oxygen saturation on room air 95%. HEENT: He has rhinitis with postnasal drainage with erythema of his posterior pharynx. NECK: There is no nuchal rigidity. There is some tenderness bilaterally, greater on the left without adenopathy or thyromegaly. CHEST: Clear to auscultation and percussion. CARDIAC: Regular rhythm without murmur, rub or extra sound. ABDOMEN: Liver is 6 cm below the right costal margin, slightly tender. No splenomegaly. EXTREMITIES: No edema. He does have right axillary adenopathy palpable. There is no adenopathy on exam. LABORATORY: CBC: White count 7.5, hemoglobin 13.8, hematocrit 39, platelet count 223,000. Sodium 136, potassium 3.7, chloride 101, CO2 of 22, BUN 12, creatinine 1.0, glucose 144, TSH 5.12, hemoglobin A1c 8.3, AST 70, ALT 76. IMPRESSION: 1. Axillary adenopathy, this was present in January 2011, at which time it was 2.5 cm. It is slowly enlarged since then to 4.2 cm, but is less concerning without other adenopathy and without tumor identified on his CT scan of his chest, abdomen and pelvis. 2. Left upper lobe pulmonary nodule measuring 2 mm. With the smoking history, he should have a repeat CT scan without contrast in 12 months. 3. Myocardial infarction, status post percutaneous coronary intervention with bare-metal stent up to his marginal branch. 4. Type 2 diabetes mellitus, uncontrolled. 5. Obstructive sleep apnea. He does need to follow up sleep study as an outpatient to titrate his CPAP or possible convert to BiPAP. 6. Hepatomegaly with fatty infiltration. He has been dieting and, is losing weight, which is the best treatment for this. He does need to control his lipids. The only concern is that his father of nonalcoholic liver disease and there may be a genetic component to this. 7. Upper respiratory infection with pharyngitis. Strep screen has been ordered. Given the chronicity of his symptoms, a nasopharyngeal swab will be obtained for influenza and a pharyngeal swab will be obtained for pertussis since he has had coughing for 2 weeks sometimes to the point of vomiting. He has not had prior flu or pneumonia vaccine prior to this hospitalization. We will also obtain a hepatitis profile, ferritin level with iron studies to rule out hemochromatosis. He will have a flow cytometry study because of the adenopathy to rule out any abnormal lymphocytes to suggest an underlying lymphoproliferative disorder. Serum protein electrophoresis to exclude gammopathy. Thank you for asking us to see this pleasant gentleman. Reggie Vang MD [id number] CC: WELL SERVICES SUPERVISOR documented in this encounter Plan of Treatment Not on filedocumented as of this encounter Procedures Comments Procedure Name Priority Date/Time Associated Diag nosis GLUCOSE POC Routine 07/26/2013 12:18 PM OIL WELL SERVICES SUPERVISOR GLUCOSE POC Routine 07/26/2013 8:09 AM OIL WELL SERVICES SUPERVISOR T4 FREE Routine 07/26/2013 1:28 AM OIL WELL SERVICES SUPERVISOR LIPASE Routine 07/26/2013 1:28 AM OIL WELL SERVICES SUPERVISOR IRON/TRANSFERRIN Routine 07/26/2013 1:28 AM OIL WELL SERVICES SUPERVISOR HEPATIC FUNCTION PANEL Routine 07/26/2013 1:28 AM OIL WELL SERVICES SUPERVISOR FERRITIN Routine 07/26/2013 1:28 AM OIL WELL SERVICES SUPERVISOR COMPLETE BLOOD COUNT Routine 07/26/2013 1:28 AM OIL WELL SERVICES SUPERVISOR BASIC METABOLIC PANEL Routine 07/26/2013 1:28 AM OIL WELL SERVICES SUPERVISOR AMYLASE Routine 07/26/2013 1:28 AM OIL WELL SERVICES SUPERVISOR ACUTE HEPATITIS PANEL Routine 07/26/2013 1:28 AM OIL WELL SERVICES SUPERVISOR GLUCOSE POC Routine 07/25/2013 9:49 PM OIL WELL SERVICES SUPERVISOR HEMATOPATHOLOGY REPORT Routine 07/25/2013 6:55 PM OIL WELL SERVICES SUPERVISOR PROTEIN ELECTROPHORESIS Routine 07/25/2013 SERUM 6:55 PM OIL WELL SERVICES SUPERVISOR BORDETELLA PCR Routine 07/25/2013 6:26 PM OIL WELL SERVICES SUPERVISOR INFLUENZA AB PCR Routine 07/25/2013 6:25 PM OIL WELL SERVICES SUPERVISOR GLUCOSE POC Routine 07/25/2013 4:44 PM OIL WELL SERVICES SUPERVISOR CULTURE, THROAT FOR RAPID Routine 07/25/2013 STREP SCREEN 3:40 PM OIL WELL SERVICES SUPERVISOR GLUCOSE POC Routine 07/25/2013 12:17 PM OIL WELL SERVICES SUPERVISOR GLUCOSE POC Routine 07/25/2013 8:32 AM OIL WELL SERVICES SUPERVISOR TROPONIN Routine 07/25/2013 5:30 AM OIL WELL SERVICES SUPERVISOR THYROID STIMULATING Routine 07/25/2013 HORMONE 5:30 AM OIL WELL SERVICES SUPERVISOR HEMOGLOBIN A1C Routine 07/25/2013 5:30 AM OIL WELL SERVICES SUPERVISOR COMPREHENSIVE METABOLIC Routine 07/25/2013 PANEL 5:30 AM OIL WELL SERVICES SUPERVISOR COMPLETE BLOOD COUNT Routine 07/25/2013 5:30 AM OIL WELL SERVICES SUPERVISOR GLUCOSE POC Routine 07/24/2013 9:10 PM OIL WELL SERVICES SUPERVISOR GLUCOSE POC Routine 07/24/2013 5:42 PM OIL WELL SERVICES SUPERVISOR INVASIVE CARDIOLOGY Routine 07/24/2013 REPORT 4:33 PM OIL WELL SERVICES SUPERVISOR TROPONIN Routine 07/24/2013 2:00 PM OIL WELL SERVICES SUPERVISOR D DIMER Routine 07/24/2013 2:00 PM OIL WELL SERVICES SUPERVISOR CK-MB Routine 07/24/2013 2:00 PM OIL WELL SERVICES SUPERVISOR CT CHEST W WO CONTRAST Routine 07/24/2013 11:50 [address] OIL WELL SERVICES [address]OR CT ABDOMEN PELVIS W Routine 07/24/2013 CONTRAST 11:50 AM OIL WELL SERVICES SUPERVISOR TROPONIN Routine 07/24/2013 10:00 AM OIL WELL SERVICES SUPERVISOR CK-MB Routine 07/24/2013 10:00 AM OIL WELL SERVICES SUPERVISOR OPIATE CONFIRMATION Routine 07/24/2013 9:40 AM OIL WELL SERVICES SUPERVISOR URINE NITRITE Routine 07/24/2013 9:40 AM OIL WELL SERVICES SUPERVISOR URINALYSIS (INCLUDES Routine 07/24/2013 MICROSCOPIC REVIEW, IF 9:40 AM OIL WELL SERVICES SUPERVISOR INDICATED) TOXICOLOGY SCREENING Routine 07/24/2013 PANEL 9:40 AM OIL WELL SERVICES SUPERVISOR ECHO TRANSTHORACIC Routine 07/24/2013 9:12 AM OIL WELL SERVICES SUPERVISOR US VENOUS DUPLEX LOWER Routine 07/24/2013 EXTREMITY BILAT 8:05 AM OIL WELL SERVICES SUPERVISOR TROPONIN Routine 07/24/2013 2:35 AM OIL WELL SERVICES SUPERVISOR MAGNESIUM Routine 07/24/2013 2:35 AM OIL WELL SERVICES SUPERVISOR LIPID PANEL Routine 07/24/2013 2:35 AM OIL WELL SERVICES SUPERVISOR COMPREHENSIVE METABOLIC Routine 07/24/2013 PANEL 2:35 AM OIL WELL SERVICES SUPERVISOR CBC AND DIFF (MANUAL DIFF Routine 07/24/2013 IF NECESSARY) 2:35 AM OIL WELL SERVICES SUPERVISOR CK-MB Routine 07/24/2013 2:35 AM OIL WELL SERVICES SUPERVISOR MARISA QUALITATIVE Routine 07/24/2013 2:35 AM OIL WELL SERVICES SUPERVISOR XR CHEST SINGLE VIEW Routine 07/24/2013 FRONTAL 2:20 AM OIL WELL SERVICES SUPERVISOR GLUCOSE POC Routine 07/24/2013 2:05 AM OIL WELL SERVICES SUPERVISOR documented in this encounter Results * GLUCOSE POC (07/26/2013 12:18 PM OIL WELL SERVICES SUPERVISOR) Only the most recent of 9 results within the time period is included. Glucose POC 175 (H) 70 - 100 MG/DL [facility] Specimen Blood Performing Organization Address City/State/Zipcode Ph one Number [facility] [address] [place], [place] [address] [facility] [address] [place], [place] [address] * Acute Hepatitis Panel (07/26/2013 1:28 AM OIL WELL SERVICES SUPERVISOR) Hepatitis B Non-reactive Non-reactive HL[facility] Surface Ag Hepatitis B Non-reactive Non-reactive [facility] Core Ab IgM Hepatitis A Ab Non-reactive Non-reactive [facility] IgM Hepatitis C Ab Non-reactive Non-reactive [facility] Specimen Blood Performing Organization Address [facility] Ph one Number RL [address] [place], [place] [address] [facility] [address] [place] [address] 11 * Complete Blood Count (07/26/2013 1:28 AM OIL WELL SERVICES SUPERVISOR) Only the most recent of 2 results within the time period is included. WBC 8.97 4.00 - 11.00 TH/UL HLAB RBC 4.97 4.31 - 5.84 MIL/UL HL[facility] Hemoglobin 14.1 13.0 - 17.0 G/DL HL[facility] Hematocrit 41 40 - 50 % HL[facility] MCV 82 80 - 99 FL HLAB MCH 28 27 - 34 PG HLAB MCHC 35 32 - 36 % HL[facility] RDW 12.7 9.0 - 14.5 % [facility] Platelet Count 246 140 - 400 TH/UL HLAB MPV 9.7 9.4 - 12.3 FL [facility] Nucleated RBCs 0 0 - 0 /100 [facility] Specimen Blood Performing Organization Address [facility] one Number [address] [place] [address] 11 [facility] [address] [place] [address] 11 * Basic Metabolic Panel (07/26/2013 1:28 AM OIL WELL SERVICES SUPERVISOR) Sodium 140 133 - 147 MEQ/L HL[facility] Potassium 4.0 3.5 - 5.3 MEQ/L [facility] Chloride 103 96 - 112 MEQ/L HL[facility] Carbon Dioxide 26Comment: Carbon Dioxide 20 - 32 MEQ/L [facility] reference interval changed 07/16/13. Anion Gap 12 5 - 17 HL[facility] Creatinine 1.2 0.6 - 1.3 MG/DL HL[facility] Blood Urea 19 7 - 26 MG/DL [facility] Nitrogen Glucose 154 (H) 70 - 100 MG/DL [facility] Calcium 9.2Comment: Calcium reference 8.4 - 10.5 MG/DL [facility] interval changed 06/25/2013. eGFR Male 65 HLAB Non-AA Comment: Chronic Kidney Disease less than 60 mL/min/1.73 sq.m Kidney failure less than 15 mL/min/1.73 sq.m eGFR Male AA 79 [facility] Comment: Chronic Kidney Disease less than 60 mL/min/1.73 sq.m Kidney failure less than 15 mL/min/1.73 sq.m Specimen Blood Performing Organization [facility] one Number [address] [place], [place] [address] [facility] [address] [place], [place] [address] * Lipase (07/26/2013 1:28 AM OIL WELL SERVICES SUPERVISOR) Lipase 70 23 - 300 IU/L [facility] Specimen Blood Performing Organization [facility] one Number [address] [place], [place] [address] [facility] [address] [place], [place] [address] * Ferritin (07/26/2013 1:28 AM OIL WELL SERVICES SUPERVISOR) Ferritin 244 20 - 300 NG/ML [facility] Specimen Blood Performing [facility] one Number [facility] [place], [place] [address] [facility] [address] [place] [address] 11 * T4 Free (07/26/2013 1:28 AM OIL WELL SERVICES SUPERVISOR) T4 Free 1.0 0.8 - 2.2 NG/DL [facility] Specimen Blood Performing [facility] one Number [address] [place], [place] [address] [facility] [address] [place] [address] 11 * Amylase (07/26/2013 1:28 AM OIL WELL SERVICES SUPERVISOR) Amylase 55 30 - 130 IU/L [facility] Specimen Blood Performing Organization [facility] one Number [address] [place], [place] [address] [facility] [address] [place] [address] 11 * Hepatic Function Panel (07/26/2013 1:28 AM OIL WELL SERVICES SUPERVISOR) Albumin 4.0 3.5 - 5.0 G/DL HL[facility] Bilirubin 0.0 0.0 - 0.4 MG/DL [facility] Direct Bilirubin Total 0.8 0.2 - 1.3 MG/DL [facility] Alkaline 104 42 - 140 IU/L HLAB Phosphatase Alanine 59 13 - 69 IU/L HLAB Aminotransferas e Aspartate 41 15 - 46 IU/L HLAB Aminotransferas e Protein Total 7.7 6.0 - 8.2 G/DL [facility] Serum Specimen Blood Performing Organization Address [facility] Ph one Number [address] [place], [place] [address] [facility] [address] [place], [place] [address] * Iron/Transferrin (07/26/2013 1:28 AM OIL WELL SERVICES SUPERVISOR) Transferrin 242 206 - 381 MG/DL HL[facility] Iron 51 50 - 180 UG/DL [facility] Iron/Transferri 18 15 - 50 % HLAB n % Saturation Total 290 204 - 408 UG/DL [facility] Iron-Binding Capacity Specimen Blood Performing Organization Address [facility] one Number [address] [place], [place] [address] [facility] [address] [place] [address] 11 * Hematopathology Report (07/25/2013 6:55 PM OIL WELL SERVICES SUPERVISOR) AP_REPORT-Horiz HEMATOPathology Report HL[facility] on AP Report Comment: (unformatted) HEMATOPathology Report Encounter: [id number] Reported: 07/27/2013 12:03 Flow Cytometry Report Specimen:Peripheral blood Collection Date:07/25/2013 18:55 CLINICAL HISTORY None given DESCRIPTION Automated CBC performed on 07/25/13 shows: WBC 8.39 x10/uL, Hgb 14.6 g/dL, Hct 42.5%, MCV 83.7 fL, RDW 13.0%, and Plts 251 x10/uL. Absolute lymphocyte count is 2.41 x10/uL. Adequacy assessment: A total of 42,116 events are analyzed. B-lymphoid cells: B cells comprise approximately 4% of all cells and show normal expression of B cell markers CD19 and CD20. There is no evidence of a monoclonal B cell population. T-lymphoid cells: T cells comprise approximately 21% of all cells and show normal expression of T cell markers CD2, CD3, CD5, and CD7. The CD4:CD8 ratio is 3.8. There is no evidence of loss of any ortega-T cell antigen. Myeloid cells: Blasts (dim CD45 expressing cells) comprise approximately <1% of cells. INTERPRETATION There is no immunophenotypic evidence of non-Hodgkin lymphoma. A discernible blast population is not identified immunophenotypically. Clinical correlation is indicated. Sample analysis included the following cell surface markers: CD2, CD3, CD4, CD5, CD7, CD8, CD10, CD19, CD20, CD45, HLA-DR, kappa, and lambda. This panel was developed and its performance characteristics determined by [facility]. It has not been approved by the [place] Food and Drug Administration. The FDA has determined that such clearance or approval is not necessary. End of Report Specimen AP_SPECIMEN Performing Organization Address [facility] Ph one Number [address] [place] [address] [facility] [address] [place] [address] 11 * Protein Electrophoresis Serum (07/25/2013 6:55 PM OIL WELL SERVICES SUPERVISOR) Protein Total 7.8 6.0 - 8.2 G/DL [facility] SPE Albumin 3.6Comment: Normal protein 3.5 - 5.0 G/DL HLA B electrophoresis pattern. Alpha 1 0.3 0.1 - 0.4 G/DL [facility] Alpha 2 1.2 0.4 - 1.3 G/DL [facility] Beta 1.3 0.6 - 1.3 G/DL [facility] Gamma 1.4 0.6 - 1.5 G/DL HL[facility] A/G Ratio 0.8 HLAB Pathologist Reviewed by Franki Read, [facility] Edward Guerrero.,Comment: Reviewed by Juancarlos Read M.D.,Ph.D. Specimen Blood Performing Organization Address [facility] Ph one Number [address] [place], [place] [address] [facility] [address] [place] [address] 11 * Bordetella PCR (07/25/2013 6:26 PM OIL WELL SERVICES SUPERVISOR) Source ABSCESS HL[facility] Bordetella Negative Negative HLAB pertussis PCR Bordetella Negative Negative HLAB parapertussis Comment: PCR This test was developed and its performance characteristics determined by [facility] [employer]. It has not been cleared or approved by the [place].S. Food and Drug Administration. The FDA has determined that such clearance or approval is not necessary. This test is used for clinical purposes. It should not be regarded as investigational or research. Performed at: [address] [id number] Track Supervisor: Misael Mckenna MD, Phone: [phone] Specimen Specimen Performing Organization Address [facility] one Number [address] [place], [place] [address] [facility] [address] [place], [place] [address] * Influenza AB PCR (07/25/2013 6:25 PM OIL WELL SERVICES SUPERVISOR) Source NASOPHARYNX [facility] 2009 H1N1 Not Detected Not Detected [facility] Influenza A PCR Not Detected Not Detected [facility] Influenza B PCR Not Detected Not Detected [facility] Specimen Specimen Performing Organization [facility] one Number [address] [place], [place] [address] [facility] [address] [place] [address] 11 * Culture, Throat for Rapid Strep Screen (07/25/2013 3:40 PM OIL WELL SERVICES SUPERVISOR) Specimen Throat Narrative Performed At REPORT [facility] Specimen/Source: THROAT/THROAT Collected: 07/25/2013 15:40 Status: Final Last Updated: 10:50 Strep Screen for Group A Strep (Final ) Negative for Streptococcus group A by antigen detection. Culture result (Final) No Beta hemolytic Streptococci iso lated at [address] [facility] one Number [address] [place], [place] [address] [facility] [address] [place] [address] 11 * Thyroid Stimulating Hormone (07/25/2013 5:30 AM OIL WELL SERVICES SUPERVISOR) Thyroid 5.12 (H) 0.47 - 4.68 UIU/ML [facility] Stimulating Hormone Specimen Blood Performing Organization [facility] one Number [address] [place], [place] [address] [facility] [address] [place], [place] [address] * Comprehensive Metabolic Panel (07/25/2013 5:30 AM OIL WELL SERVICES SUPERVISOR) Only the most recent of 2 results within the time period is included. Albumin 4.0 3.5 - 5.0 G/DL [facility] Aspartate 63 (H) 15 - 46 IU/L [facility] Aminotransferas e Bilirubin Total 1.0 0.2 - 1.3 MG/DL [facility] Protein Total 7.4 6.0 - 8.2 G/DL [facility] Serum Calcium 8.9Comment: Calcium reference 8.4 - 10.5 MG/DL [facility] interval changed 06/25/2013. Creatinine 1.0 0.6 - 1.3 MG/DL [facility] Glucose 144 (H) 70 - 100 MG/DL [facility] Alkaline 110 42 - 140 IU/L [facility] Phosphatase Sodium 136 133 - 147 MEQ/L [facility] Potassium 3.7 3.5 - 5.3 MEQ/L [facility] Chloride 101 96 - 112 MEQ/L [facility] Carbon Dioxide 22Comment: Carbon Dioxide 20 - 32 MEQ/L [facility] reference interval changed 07/16/13. Blood Urea 12 7 - 26 MG/DL [facility] Nitrogen Anion Gap 13 5 - 17 [facility] Alanine 69 13 - 69 IU/L HL[facility] Aminotransferas e eGFR Male 80 [facility] Non-AA Comment: Chronic Kidney Disease less than 60 mL/min/1.73 sq.m Kidney failure less than 15 mL/min/1.73 sq.m eGFR Male AA 97 [facility] Comment: Chronic Kidney Disease less than 60 mL/min/1.73 sq.m Kidney failure less than 15 mL/min/1.73 sq.m Specimen Blood Performing Organization Address [facility] one Number [address] [place] [address] [facility] [address] [place] [address] 11 * Troponin (07/25/2013 5:30 AM OIL WELL SERVICES SUPERVISOR) Only the most recent of 4 results within the time period is included. Troponin 5.70 (H) 0.00 - 0.03 NG/ML [facility] Comment: Troponin Value Interpretation 0.00 - 0.03 Healthy 0.04 - 0.12 Increased Cardiac Risk >0.12 Myocardial Infarction Troponin may not become elevated until 6 to 8 hours after onset of symptoms. Specimen Blood Performing Organization Address [facility] one Number [address] [place] [address] [facility] [address] [place] [address] 11 * Hemoglobin A1C (07/25/2013 5:30 AM OIL WELL SERVICES SUPERVISOR) HEMOGLOBIN A1C 8.3 (H) 4.0 - 5.6 % [facility] Comment: Non-diabetic 4.0 - 5.6 % Prediabetes 5.7 - 6.4 % Diabetes >= 6.5 % Specimen Blood Performing Organization Address City/State/Zipcode Ph one Number [facility] [address] [place], [place] [address] [facility] [address] [place], [place] [address] * Invasive Cardiology Report (07/24/2013 4:33 PM OIL WELL SERVICES SUPERVISOR) Specimen Narrative Performed At , [facility] [place] [facility] Complete Report Name:GIACOMO TRAYLOR : 1965 Age: 48 years Gender: Male SSN: Study date: 07/24/2013 CPI number: [id number] CV Cath number: [id number] [employer] REPAIRER: Aubrey Sahu [employer] [facility] CONSULTANT: Cesar Powell INTERVENTIONAL FELLOW: Eusebio Juan INDICATIONS: Angina/[place]: myocardial infa rction without ST elevation (NSTEMI). PROCEDURES PERFORMED: -- Left coronary angiography. -- Right coronary angiography. -- Intervention on OM1: stent inserti on. PROCEDURE: The risks, benefits and alte rnatives of the procedure and conscious sedation were reviewed with the patient and informed consent was obtained. The patient was brought to the cardiac tender labor and placed on the table. The planned access sites were prepped and d raped in the usual sterile fashion. -- Right radial artery access. The ac cess site was infiltrated with local anesthetic. The vessel was accessed usi ng the modified Seldinger technique, a wire was threaded into the vessel, and a catheter was advanced over the wire into the vessel. -- Left coronary artery angiography. A Lesa catheter was advanced to the aorta and positioned in the vessel osti um under fluoroscopic guidance. Angiography was performed in multiple p rojections using hand-injection of contrast. -- Right coronary artery angiography. A Lesa catheter was advanced to the aorta and positioned in the vessel osti um under fluoroscopic guidance. Angiography was performed in multiple p rojections using hand-injection of contrast. LESION INTERVENTION: A 3.5x15 Integrity bare metal stent insertion was performed on the 95 % lesion in the 1st obtuse marginal to 16 noemi. Following intervention there was a 0 % residual s tenosis. This was an ACC/AHA "non-high risk" lesion for intervention. There wa s YOAN 3 flow before the procedure and YOAN 3 flow after the procedure. -- A 6F EBU4.[address] was used to cannulate the vessel. -- A 0.990A935 [employer] [place] Flex wi re was used. -- A 3.5X15 Integrity RX bare-metal s tent was deployed in the lesion at a maximum inflation pressure of 16 noemi. Lesion (initial) Lesion (final) Lesion length 10 mm Diameter stenosis 95 % 0 % PROCEDURAL DATA: No significant blood l oss. TIMING: Test started at 16:35. Test concluded at 17:24. RADIATION EXPOSURE: Fluoroscopy time: 13.6 min. HEMOSTASIS: The sheath was removed. The site was compressed with TR band. Hemostasis was successful. MEDICATIONS GIVEN: Fentanyl, 50 mcg, IV , at 16:42. Midazolam, 2 mg, IV, at 16:42. Verapamil (Isoptin, Calan, Cover a), 2.5 mg IA, at 16:46. Verapamil (Isoptin, Calan, Covera), 2.5 mg IA, at 17:18. Heparin, 4200 units, IV, last dose at 16:53. 2% Lidocaine, 2 ml subcu taneously, at 16:45. CONTRAST GIVEN: Omnipaque 100 ml. LEFT VENTRICULOGRAM: No LV gram was per formed; however, a recent echocardiogram demonstrated an EF of 60 %. Global left ventricular function was normal. CORONARY ANGIOGRAPHY: Left main: The ve ssel was very large sized and excessively ectatic. Angiography showed no evidence of disease. Proximal LAD: The vessel was very large sized and mod erately ectatic. There was a discrete 40 % stenosis in the middle third of the v essel segment, just after D1. Mid LAD: There was a moderately long 30 % stenos is in the middle third of the vessel segment. 1st diagonal: Normal. 2nd diag onal: Angiography showed minor luminal irregularities. Circumflex: The vessel was medium sized. 1st obtuse marginal: The vessel was medium sized. There was a discrete 95 % stenosis in the proximal third of the vessel segment. There was YOAN grade 3 flow through the vessel (brisk flow). RCA: The vessel was large sized (dominant). There was a moderately long 40- 50 % stenosis in th e middle third of the vessel segment. Distal RCA: There was a 25 % stenosis. Right PDA: The vessel was small to medium sized. Angiography showed minor luminal irregularities. 2nd posterolateral segment: The vessel was medium sized. Angiography showed minor luminal irregularities. COMPLICATIONS: There were no complicati ons. SUMMARY: -- 1ST LESION INTERVENTIONS: -- A 3.5x15 Integrity bare metal sten t insertion was performed on the 95 % lesion in the 1st obtuse marginal to 16 noemi. Following intervention there was a 0 % residual stenosis. -- CASE ABSTRACT: -- Culprit 95% proximal circumflex wi th mild proximal and mid LAD and mild to moderate midRCA disease. PCI of proxima l circumflex 95% with 3.5x15 Integrity BMS. RECOMMENDATIONS: DAPT for atleast 1 month for BMS. Med R x for residual nonobstructive CAD. I performed the entire procedure and/or supervised the Fellow for duncan portions of the procedure performed by Tommie Rodriguez ch, M.D.. I interpreted all test results for this procedure and did not particip ate in any overlapping procedures. I performed the entire procedure and/or supervised the Fellow for duncan portions of the procedure performed by Lee levy M.D.. I interpreted all test results for this procedure and did not participate in any overlapping procedures. Authenticated by Aubrey Willson III, M.D. Signed 07/24/2013 17:47:07 HEMODYNAMIC TABLES Pressures: Baseline Pressures: - HR: 50 Pressures: - Rhythm: Pressures: -- Aortic Pressure (S/D/M) : 153/97/140 Outputs: Baseline Outputs: -- CALCULATIONS: [age] s[age] Outputs: -- CALCULATIONS: Body Surfac e Area: 2.18 Outputs: -- CALCULATIONS: Height in c m: 170.00 Outputs: -- CALCULATIONS: Sex: Male Outputs: -- CALCULATIONS: Weight in k .90 Procedure Note Interface, Rad Conversion - 09/16/2013 10:02 AM CDT , Complete Report Name:GIACOMO TRAYLOR : 1965 Age: 48 years Gender: Male SSN: Study date: 07/24/2013 CPI number: [id number] CV Cath number: [id number] [employer] REPAIRER: Aubrey Willson III, M.D. [facility] CONSULTANT: Lee Pennington M.D. INTERVENTIONAL FELLOW: Tommie Rolle M.D. INDICATIONS: Angina/NJ: myocardial infarction without ST elevation (NSTEMI). PROCEDURES PERFORMED: -- Left coronary angiography. -- Right coronary angiography. -- Intervention on OM1: stent insertion . PROCEDURE: The risks, benefits and alternatives of the procedure and conscious sedation were reviewed with the patient and informed consent was obtained. The patient was brought to the cardiac tender labor and placed on the table. The planned access sites were prepped and draped in the usual sterile fashion. -- Right radial artery access. The welia healthe ss site was infiltrated with local anesthetic. The vessel was accessed using the modified Seldinger technique, a wire was threaded into the vessel, and a catheter was advanced over the wire into the vessel. -- Left coronary artery angiography. A Lesa catheter was advanced to the aorta and positioned in the vessel ostium under fluoroscopic guidance. Angiography was performed in multiple projections using hand-injection of contrast. -- Right coronary artery angiography. A Lesa catheter was advanced to the aorta and positioned in the vessel ostium under fluoroscopic guidance. Angiography was performed in multiple projections using hand-injection of contrast. LESION INTERVENTION: A 3.5x15 Integrity bare metal stent insertion was performed on the 95 % lesion in the 1st obtuse marginal to 16 noemi. Following intervention there was a 0 % residual stenosis. This was an ACC/AHA "non-high risk" lesion for intervention. There was YOAN 3 flow before the procedure and YOAN 3 flow after the procedure. -- A 6F EBU4.0 Launcher guiding cathete r was used to cannulate the vessel. -- A 0.911O700 [place] Flex wire was used. -- A 3.5X15 Integrity RX bare-metal charles nt was deployed in the lesion at a maximum inflation pressure of 16 noemi. Lesion (initial) Lesion (final) Lesion length 10 mm Diameter stenosis 95 % 0 % PROCEDURAL DATA: No significant blood loss. TIMING: Test started at 16:35. Test concluded at 17:24. RADIATION EXPOSURE: Fluoroscopy time: 13.6 min. HEMOSTASIS: The sheath was removed. The site was compressed with TR band. Hemostasis was successful. MEDICATIONS GIVEN: Fentanyl, 50 mcg, IV, at 16:42. Midazolam, 2 mg, IV, at 16:42. Verapamil (Isoptin, Calan, Covera ), 2.5 mg IA, at 16:46. Verapamil (Isoptin, Calan, Covera), 2.5 mg IA, at 17:18. Heparin, 4200 units, IV, last dose at 16:53. 2% Lidocaine, 2 ml subcutaneously, at 16:45. CONTRAST GIVEN: Omnipaque 100 ml. LEFT VENTRICULOGRAM: No LV gram was performed; however, a recent echocardiogram demonstrated an EF of 60 %. Global left ventricular function was normal. CORONARY ANGIOGRAPHY: Left main: The vessel was very large sized and excessively ectatic. Angiography showed no evidence of disease. Proximal LAD: The vessel was very large sized and moderately ectatic. There was a discrete 40 % stenosis in the middle third of the vessel segment, just after D1. Mid LAD: There was a moderately long 30 % stenosis in the middle third of the vessel segment. 1st diagonal: Normal. 2nd diagonal: Angiography showed minor luminal irregularities. Circumflex: The vessel was medium sized. 1st obtuse marginal: The vessel was medium sized. There was a discrete 95 % stenosis in the proximal third of the vessel segment. There was YOAN grade 3 flow through the vessel (brisk flow). RCA: The vessel was large sized (dominant). There was a moderately long 40- 50 % stenosis in the middle third of the vessel segment. Distal RCA: There was a 25 % stenosis. Right PDA: The vessel was small to medium sized. Angiography showed minor luminal irregularities. 2nd posterolateral segment: The vessel was medium sized. Angiography showed minor luminal irregularities. COMPLICATIONS: There were no complications. SUMMARY: -- [...] proximal circumflex 95% with 3.5x15 Integrity BMS. RECOMMENDATIONS: DAPT for atleast 1 month for BMS. Med Rx for residual nonobstructive CAD. I performed the entire procedure and/or supervised the Fellow for duncan portions of the procedure performed by Tommie Rolle M.D.. I interpreted all test results for this procedure and did not participate in any overlapping procedures. I performed the entire procedure and/or supervised the Fellow for duncan portions of the procedure performed by Lee Pennington M.D.. I interpreted all test results for this procedure and did not participate in any overlapping procedures. Authenticated by Aubrey Willson III, M.D. Signed 07/24/2013 17:47:07 HEMODYNAMIC TABLES Pressures: Baseline Pressures: - HR: 50 Pressures: - Rhythm: Pressures: -- Aortic Pressure (S/D/M): 153/97/140 Outputs: Baseline Outputs: -- CALCULATIONS: [age] Outputs: -- CALCULATIONS: Body Surface Area: 2.18 Outputs: -- CALCULATIONS: Height in cm: 170.00 Outputs: -- CALCULATIONS: Sex: Male Outputs: -- CALCULATIONS: Weight in k.90 Performing Organization Address [facility] one Number [facility] [place] [facility] [address] [facility] [place] [address] * D Dimer (07/24/2013 2:00 PM OIL WELL SERVICES SUPERVISOR) D Dimer 0.32Comment: Cutoff value for 0.00 - 0.40 UG/M L [facility] exclusion of venous FEU thromboembolism is <0.40 ug/mL FEU. Specimen Blood Performing Organization Address [facility] one Number [facility] [address] [address] [facility] [address] [address] 11 * CK-MB (07/24/2013 2:00 PM OIL WELL SERVICES SUPERVISOR) Only the most recent of 3 results within the time period is included. CK MB 21.0 (H) 0.0 - 5.0 NG/ML [facility] Specimen Blood Performing Organization Address [facility] one Number [facility] [address] [place], [place] [address] [facility]AB [address] [address] 11 * CT Abdomen Pelvis w contrast (07/24/2013 11:50 AM OIL WELL SERVICES SUPERVISOR) Specimen Narrative Performed At [facility] Patient: GIACOMO TRAYLOR Phone #: Med Rec#: [id number] Sex: M : 1965 Javed#: [id number] Location: [address] 08 Check-in#: [id number] Procedure Requested: [id number] CT ABD PELVI S WITH CONTRAST Reason For Exam: ABDOMINAL PAIN S PECIFY SITE Exam Ordered: 07/24/2013 111 9 Exam Date/Time: 07/24/2013 1205 Check-in Date/Time: 07/24/2013 1234 Attendin GINGER GOFF Y "" Requestin BARBARA GOFF "" Referrin NO, REFERRING DR Primary Care: [id number] ALEXSANDRA BERMUDEZ MD CT ABD PELVIS WITH CONTRAST INDICATION: ABDOMINAL PAIN EXAM: CT of the abdomen and pelvis with IV contrast including delayed images. The patient received 85 mL of Omnipaque 350 without complication. Coronal and sagittal re formatted images were performed. COMPARISON: CT abdomen and pelvis 01/13 FINDINGS: No free air, free fluid, or f luid collection. Lower chest: Please refer to report of concurrent CT of the chest for further details. ABDOMEN: Liver: Diffuse low-attenuation of the l iver representing severe hepatic steatosis. No focal lesions. Hepatomega ly measuring 21 cm craniocaudally. Gallbladder and biliary: Normal gallbla dder without radiopaque stone. Normal caliber bile ducts. Spleen: Normal spleen. Pancreas: Diffuse fatty atrophy of the pancreas, otherwise homogeneous enhancement. Adrenal glands: Normal adrenal glands. Kidneys and ureters: 1.7 cm left renal cyst, otherwise the kidneys are normal. GI tract: The stomach is partially dist ended and normal in appearance. Small bowel and colon are of normal luann iber. Moderate sigmoid diverticulosis. Normal appendix. Vascular structures: Normal caliber abd ominal aorta without aneurysm or dissection. Mixed calcified and noncalc ified atherosclerotic plaque in the abdominal aorta and iliac vasculatu re. The celiac artery, SMA, NIKOLAS and bilateral renal arteries are patent . Portal and mesenteric venous structures are poorly assessed due to p hase of contrast. Note is made of 3 right renal arteries. Lymph nodes: No lymphadenopathy in the abdomen or pelvis. PELVIS: Genitourinary system: Normal bladder. N ormal prostate gland and seminal vesicles. SKELETAL STRUCTURES AND SOFT TISSUES: N o fracture or destructive lesions in the visualized skeleton. Multilevel degenerative changes of the spine. IMPRESSION: 1. Normal caliber abdominal aorta with no evidence of dissection. 2. Hepatomegaly with severe diffuse hep atic steatosis. 3. Colonic diverticulosis without diver ticulitis. 4. Please refer to report of concurrent CT of the chest for further details. ATTESTATION STATEMENT: The Staff Radiologist has personally re viewed the images and dictated, reviewed, or edited the final report. READING SITE: [facility] Signed (Authenticated, Released) Date-T natasha: 07/24/[address] Freight- ANA ANTOINE M.D. , Staff Radiologist Dictated By- Chapis WELCH Staff Physician- ANA ANTOINE M.D., Staff Radiologist Authenticated By- ANA ANTOINE M.D. , Staff Radiologist Procedure Note Interface, Rad Conversion - 09/05/2013 9:02 AM OIL WELL SERVICES SUPERVISOR REPORT Patient: GIACOMO TRAYLOR Phone #: Med Rec#: [id number] Sex: M : 1965 Javed#: [id number] Location: [place] [address] Check-in#: [id number] Procedure Requested: [id number] CT ABD PELVIS WITH CONTRAST Reason For Exam: ABDOMINAL PAIN SPECIFY SITE Exam Ordered: 07/24/2013 1119 Exam Date/Time: 07/24/2013 1205 Check-in Date/Time: 07/24/2013 1234 Attendin BARBARA GOFF "" Requestin BARBARA GOFF "" Referrin NO, REFERRING DR Primary Care: [id number] ALEXSANDRA BERMUDEZ MD CT ABD PELVIS WITH CONTRAST INDICATION: ABDOMINAL PAIN EXAM: CT of the abdomen and pelvis with IV contrast including delayed images. The patient received 85 mL of Omnipaque 350 without complication. Coronal and sagittal reformatted images were performed. COMPARISON: CT abdomen and pelvis 01/13/2011 FINDINGS: No free air, free fluid, or fluid collection. Lower chest: Please refer to report of concurrent CT of the chest for further details. ABDOMEN: Liver: Diffuse low-attenuation of the liver representing severe hepatic steatosis. No focal lesions. Hepatomegaly measuring 21 cm craniocaudally. Gallbladder and biliary: Normal gallbladder without radiopaque stone. Normal caliber bile ducts. Spleen: Normal spleen. Pancreas: Diffuse fatty atrophy of the pancreas, otherwise homogeneous enhancement. Adrenal glands: Normal adrenal glands. Kidneys and ureters: 1.7 cm left renal cyst, otherwise the kidneys are normal. GI tract: The stomach is partially distended and normal in appearance. Small bowel and colon are of normal caliber. Moderate sigmoid diverticulosis. Normal appendix. Vascular structures: Normal caliber abdominal aorta without aneurysm or dissection. Mixed calcified and noncalcified atherosclerotic plaque in the abdominal aorta and iliac vasculature. The celiac artery, SMA, NIKOLAS and bilateral renal arteries are patent. Portal and mesenteric venous structures are poorly assessed due to phase of contrast. Note is made of 3 right renal arteries. Lymph nodes: No lymphadenopathy in the abdomen or pelvis. PELVIS: Genitourinary system: Normal bladder. Normal prostate gland and seminal vesicles. SKELETAL STRUCTURES AND SOFT TISSUES: No fracture or destructive lesions in the visualized skeleton. Multilevel degenerative changes of the spine. IMPRESSION: 1. Normal caliber abdominal aorta with n o evidence of dissection. 2. Hepatomegaly with severe diffuse hepa tic steatosis. 3. Colonic diverticulosis without divert iculitis. 4. Please refer to report of concurrent CT of the chest for further details. ATTESTATION STATEMENT: The Staff Radiologist has personally reviewed the images and dictated, reviewed, or edited the final report. READING SITE: [facility] Signed (Authenticated, Released) Date-Time: 07/24/[address] Freight- ANA ANTOINE M.D., Staff Radiologist Dictated By- LUIS ANTONIO MORALES, Resident Staff Physician- ANA ANTOINE M.D., Staff Radiologist Authenticated By- ANA ANTOINE M.D., Staff Radiologist Performing Organization Address City/State/Zipcode Ph one Number [facility] * CT Chest w wo contrast (07/24/2013 11:50 AM OIL WELL SERVICES SUPERVISOR) Specimen Narrative Performed At REPORT [facility] Patient: GIACOMO TRAYLOR Phone #: Med Rec#: [id number] Sex: M : 1965 Javed#: [id number] Location: [place] [address] Check-in#: [id number] Procedure Requested: [id number] CT CHEST W W O CONTRAST Reason For Exam: CHEST PAIN Exam Ordered: 07/24/2013 111 8 Exam Date/Time: 07/24/2013 1205 Check-in Date/Time: 07/24/2013 1157 Attendin GINGER GOFF "" Requestin BARBARA GOFF "" Referrin NO, REFERRING Primary Care: [id number] ALEXSANDRA BERMUDEZ MD CT CHEST W WO CONTRAST INDICATION: CHEST PAIN COMPARISON STUDY: January 13, 2011. TECHNIQUE: Unenhanced axial images we re obtained through the thoracic aorta. Following the uneventful adminis tration of a bolus of intravenous contrast, thin section axial CT images were obtained through the chest using the CT aorta protocol. Bilateral oblique thin section multiplanar reconstructions were obtained through t he aorta. Coronal MIP images were also obtained. 3-D reformatted images o f the aorta were also performed on a separate workstation. FINDINGS: Unenhanced aorta: No mediastinal hemato ma or periaortic fluid collection. No evidence of intramural h ematoma Enhanced aorta: No evidence of aortic d issection or aneurysm. Aorta is calcified, indicating atherosclerosis. Thoracic aortic stent graft in expected position. No evidence for endo leak on immediate contrast examination. Incidental note of ductus bump. Heart and Mediastinum: The heart and pe ricardium are normal. The pulmonary arteries are unremarkable. Th e thyroid gland is of normal size and attenuation. Interval enlargement o f large right axillary lymph node measuring 4.2 x 2.4 cm. Multiple enlarg ed right subpectoral lymph nodes. Calcified mediastinal and right hilar l ymph nodes likely sequela of prior granulomatous infection. Coronary artery calcification indicates atherosclerosis. Lungs and Airways: Large airways normal . Bands of subsegmental atelectasis at both bases. Calcified gr anulomas. Small 2 mm left upper lobe pulmonary nodule image 158 series 6, not clearly seen on previous studies. Pleura: The pleural spaces are normal. Abdomen: Please refer to separate abdom inal CT report from the same day. Bones and soft tissues: The skeletal st ructures and soft tissues of the chest wall are unremarkable. IMPRESSIONS: History of aortic ulcer st atus post stent, now with chest pain. 1. No evidence for acute aortic syndrom e. The thoracic stent graft is in expected position. No evidence for endo leak on early contrast is enhancement. 2. Interval [...] month followup chest CT would be advised. CRITICAL FINDINGS: The finding of enlarging right axillary and subpectoral lymph nodes with concern for indolent malignancy was hugo bally communicated to the patient's nurse, Ellyn at 1:00 p.m. on the day the examination. READING SITE: [facility] Signed (Authenticated, Released) Date-T natasha: 07/24/[address] Freight- AQUILINO MENON M.D., Staff Radiologist Dictated By- AQUILINO Sahu, Staff Radiologist Staff Physician- AQUILINO MENON M.D., Staff Radiologist Authenticated By- AQUILINO MENON M.D., Staff Radiologist Procedure Note Interface, Rad Conversion - 09/05/2013 9:02 AM OIL WELL SERVICES SUPERVISOR REPORT Patient: GIACOMO TRAYLOR Phone #: Med Rec#: [id number] Sex: M : 1965 Javed#: [id number] Location: [place] [address] Check-in#: [id number] Procedure Requested: [id number] CT CHEST W WO CONTRAST Reason For Exam: CHEST PAIN Exam Ordered: 07/24/2013 1118 Exam Date/Time: 07/24/2013 1205 Check-in Date/Time: 07/24/2013 1157 Attendin BARBARA GOFF "" Requestin BARBARA GOFF "" Referrin NO, REFERRING Primary Care: [id number] ALEXSANDRA BERMUDEZ MD CT CHEST W WO CONTRAST INDICATION: CHEST PAIN COMPARISON STUDY: January 13, 2011. TECHNIQUE: Unenhanced axial images were obtained through the thoracic aorta. Following the uneventful administration of a bolus of intravenous contrast, thin section axial CT images were obtained through the chest using the CT aorta protocol. Bilateral oblique thin section multiplanar reconstructions were obtained through the aorta. Coronal MIP images were also obtained. 3-D reformatted images of the aorta were also performed on a separate workstation. FINDINGS: Unenhanced aorta: No mediastinal hematoma or periaortic fluid collection. No evidence of intramural hematoma Enhanced aorta: No evidence of aortic dissection or aneurysm. Aorta is calcified, indicating atherosclerosis. Thoracic aortic stent graft in expected position. No evidence for endoleak on immediate contrast examination. Incidental note of ductus bump. Heart and Mediastinum: The heart and pericardium are normal. The pulmonary arteries are unremarkable. The thyroid gland is of normal size and attenuation. Interval enlargement of large right axillary lymph node measuring 4.2 x 2.4 cm. Multiple enlarged right subpectoral lymph nodes. Calcified mediastinal and right hilar lymph nodes likely sequela of prior granulomatous infection. Coronary artery calcification indicates atherosclerosis. Lungs and Airways: Large airways normal. Bands of subsegmental atelectasis at both bases. Calcified granulomas. Small 2 mm left upper lobe pulmonary nodule image 158 series 6, not clearly seen on previous studies. Pleura: The pleural spaces are normal. Abdomen: Please refer to separate abdominal CT report from the same day. Bones and soft tissues: The skeletal structures and soft tissues of the chest wall are unremarkable. IMPRESSIONS: History of aortic ulcer status post stent, now with chest pain. 1. No evidence for acute aortic syndrome . The thoracic stent graft is in expected [...] month followup chest CT would be advised. CRITICAL FINDINGS: The finding of enlarging right axillary and subpectoral lymph nodes with concern for indolent malignancy was verbally communicated to the patient's nurse, Ellyn at 1:00 p.m. on the day the examination. READING SITE: [facility] Signed (Authenticated, Released) Date-Time: 07/24/[address] Freight- AQUILINO MENON M.D., Staff Radiologist Dictated By- AQUILINO MENON M.D., Staff Radiologist Staff Physician- AQUILINO MENON M.D., Staff Radiologist Authenticated By- AQUILINO MENON M.D., Staff Radiologist Performing Organization Address [facility] Ph one Number [facility] * Urine Nitrite (07/24/2013 9:40 AM OIL WELL SERVICES SUPERVISOR) Nitrite Urine Negative Negative [facility] Specimen Urine Performing Organization Address [facility] one Number [facility] [address] [place], [place] [address] [facility] [address] [address] * Urinalysis (07/24/2013 9:40 AM OIL WELL SERVICES SUPERVISOR) Appearance, Yellow [facility] Urine Specific >=1.030 1.001 - 1.030 [facility] [place], UA PH Urine 6.5 5.0 - 8.0 HL[facility] Hemoglobin Negative Negative [facility] Urine Leukocyte Negative Negative [facility] Esterase Bilirubin Urine Negative Negative [facility] Glucose Urine Negative Negative MG/DL HL[facility] Ketones Urine Negative Negative MG/DL [facility] Protein Urine Negative Negative MG/DL [facility] Qual Urobilinogen Negative Negative EU/DL [facility] Urine Specimen Urine Performing Organization Address [facility] one Number [facility] [address] [address] [address] [facility] [address] [place], [place] [address] * Toxicology Screening Panel (07/24/2013 9:40 AM OIL WELL SERVICES SUPERVISOR) Amphetamines Not Detected Not Detected [facility] Urine Comment: Due to a md do resident urgent care recall, we are temporarily unable to test for acetaminophen and methadone; methamphetamine is included in the amphetamine result line. Barbiturates Not Detected Not Detected [facility] Urine Benzodiazepines Not Detected Not Detected [facility] Urine Cocaine Urine Not Detected Not Detected [facility] Opiates Urine Present (A) Not Detected [facility] Phencyclidine Not Detected Not Detected [facility] Urine Tetrahydrocanna Not Detected Not Detected HLAB binol Urine Tricyclic Not Detected Not Detected [facility] Antidepressants Comment: Toxicology cutoff values: Assay Cutoff value Assay Cutoff value Acetaminophen 5 ug/mL Methadone 300 ng/mL Amphetamines 1000 ng/mL Opiates 300 ng/mL Methamphetamines 1000 ng/mL Phencyclidine 25 ng/mL Barbiturates 300 ng/mL THC 50 ng/mL Benzodiazepines 300 ng/mL Tricyclic Antidepressants 1000 ng/mL Cocaine 300 ng/mL This drug screen provides presumptive results for medical purposes only. False positive results may occur. Confirmatory results will follow for all postive drugs except acetaminophen and tricyclic antidepressants. Specimen Urine Performing Organization Address [facility] Ph one Number SLRL [address] [place], [place] [address] HLAB [address] [place], [place] [address] * Opiate Confirmation (07/24/2013 9:40 AM OIL WELL SERVICES SUPERVISOR) Pathologist [facility] Opiate See comments HLAB Confirmation Comment: Hydrocodone and its metabolites, Hydromorphone and Dihydrocodeine, were detected. Technique: LC/MS/MS Detectable Drugs: Codeine, Morphine, Dihydrocodeine, Hydrocodone, Oxycodone, Oxymorphone, and Hydromorphone Test performed by [facility] [address] [place] [address] Specimen Urine Performing Organization Address [facility] Ph one Number SLRL [address] [place], [place] [address] HLAB [address] [place], [place] [address] * ECHO TRANSTHORACIC (07/24/2013 9:12 AM OIL WELL SERVICES SUPERVISOR) Specimen Narrative Performed At [facility] RAD ECHOCARDIOGRAM REPORT [facility] Name: GIACOMO TRAYLOR Date: 07/24/2013 09:12 Chart #: [id number] : 1965 Location: [facility] IP Sono: mmartin Age: 48 Gender: M Referring: Room #: [facility]-8 Fellow: Indication: Chest pain Procedure: [id number] Complete Echo 2D/Color flow/Doppler BP: 153 / 125 HR: 62 Ht: 66 Wt: 238 BSA: 2.2 2D ECHO MEASUREMENTS LV Diastolic Diameter Bas 5.4 cm 3.6-5.4 LVPW Diastolic Thickness 1 cm 0.6-1.1 LV Systolic Diameter Base 3 cm 2.3-4.0 Aorta at Sinuses Diameter 3.1 cm 2.1-3.5 LA Systolic Diameter LX 4.2 cm 2.3-3.8 Ascending Aorta Diameter 3.6 cm 2.1-3.4 IVS Diastolic Thickness 1 cm 0.6-1.1 AORTIC VALVE DOPPLER AV Peak Velocity 160 cm/ s AV Peak Gradient 10.2 mmHg MITRAL VALVE DOPPLER Mitral E Point Velocity 67.1 cm/s Mitral E to A Ratio 0.76 Mitral A Point Velocity 88.8 cm/s WALL SEGMENT ANALYSIS: ROUTINE LVSI : 1 %FM : 100 LAD : 1 LCX : 1 RCA : 1 FINDINGS LV Ejection Fraction: 75 Hyperdynamic left ventricular systolic function, with an estimated ejection fraction of 75%. Normal wall thickness. Normal wall motion. Normal left ventricular dimensions. Normal right ventricular size and systo lic function. Normal right and left atrial size. Mild diastolic dysfunction - normal LA pressure with mild abnormality in LV relaxation. Normal aortic valve without regurgitati on. Normal mitral valve without regurgitati on. Normal pulmonic valve without regurgita tion. Normal tricuspid valve without regurgit ation. Unable to accurately estimate pulmonary artery pressure. No pericardial effusion. IVC not visualized. Poor subcostal wi ndow. Normal ascending aorta. No intracardiac masses or thrombi. CONCLUSIONS: 1. Hyperdynamic left ventricular syst olic function, with an estimated ejection fraction of 75%. 2. Normal valves. Freedom Gallegos MD (Electronically Signed) Final Date: 24 July 2013 11:18 Procedure Note Interface, Rad Conversion - 09/16/2013 10:02 AM CDT RESULT ECHOCARDIOGRAM REPORT [facility] Name: GIACOMO TRAYLOR Date: 07/24/2013 09:12 Chart #: [id number] : 1965 Location: [facility] IP Sono: mmartin Age: 48 Gender: M Referring: Room #: [facility] Fellow: Indication: Chest pain Procedure: [id number] Complete Echo 2D/Colorflow/Doppler BP: 153 / 125 HR: 62 Ht: 66 Wt: 238 BSA: 2.2 2D ECHO MEASUREMENTS LV Diastolic Diameter Bas 5.4 cm 3.6-5.4 LVPW Diastolic Thickness 1 cm 0.6-1.1 LV Systolic Diameter Base 3 cm 2.3-4.0 Aorta at Sinuses Diameter 3.1 cm 2.1-3.5 LA Systolic Diameter LX 4.2 cm 2.3-3.8 Ascending Aorta Diameter 3.6 cm 2.1-3.4 IVS Diastolic Thickness 1 cm 0.6-1.1 AORTIC VALVE DOPPLER AV Peak Velocity 160 cm/s AV Peak Gradient 10.2 mmHg MITRAL VALVE DOPPLER Mitral E Point Velocity 67.1 cm/s Mitral E to A Ratio 0.76 Mitral A Point Velocity 88.8 cm/s WALL SEGMENT ANALYSIS: ROUTINE LVSI : 1 %FM : 100 LAD : 1 LCX : 1 RCA : 1 FINDINGS LV Ejection Fraction: 75 Hyperdynamic left ventricular systolic function, with an estimated ejection fraction of 75%. Normal wall thickness. Normal wall motion. Normal left ventricular dimensions. Normal right ventricular size and systolic function. Normal right and left atrial size. Mild diastolic dysfunction - normal LA pressure with mild abnormality in LV relaxation. Normal aortic valve without regurgitation. Normal mitral valve without regurgitation. Normal pulmonic valve without regurgitation. Normal tricuspid valve without regurgitation. Unable to accurately estimate pulmonary artery pressure. No pericardial effusion. IVC not visualized. Poor subcostal window. Normal ascending aorta. No intracardiac masses or thrombi. CONCLUSIONS: 1. Hyperdynamic left ventricular systol ic function, with an estimated ejection fraction of 75%. 2. Normal valves. Freedom Gallegos MD (Electronically Signed) Final Date: 24 July 2013 11:18 Performing Organization Address City/State/Zipcode Ph one Number [facility] RAD [address] [facility] [place] [address] * Venous Duplex Lower Extremity bilat (07/24/2013 8:05 AM OIL WELL SERVICES SUPERVISOR) Specimen Narrative Performed At [facility] Patient: GIACOMO TRAYLOR Phone #: Med Rec#: [id number] Sex: M : 1965 Javed#: [id number] Location: [place] [address] Check-in#: [id number] Procedure Requested: [id number] US VENOUS DU PLEX BILAT LOWER EXT Reason For Exam: SHORTNESS OF AIR Exam Ordered: 07/24/2013 075 4 Exam Date/Time: 07/24/2013 0845 Check-in Date/Time: 07/24/2013 1024 Attendin GINGER GOFF Y "" Requestin BARBARA GOFF "" Referrin NO, REFERRING DR Primary Care: [id number] ALEXSANDRA BERMUDEZ MD US VENOUS DUPLEX BILAT LOWER EXT Indication: Shortness of air Technique: Ultrasound duplex and colo r doppler flow examination of the bilateral lower extremity venous system s was performed. Findings: All visualized segments of the bilateral common femoral, greater saphenous, superficial femoral, profunda femoris, posterior tibial, peroneal, and popliteal veins a re patent with good compressibility and augmentation. The c dwain veins are patent. Impression: No lower extremity DVT. READING SITE: [facility] ATTESTATION STATEMENT: The Staff Radiologist has personally re viewed this study and agrees with the findings in this report. Signed (Authenticated, Released) Date-T natasha: 07/24/[address] Freight- ANA ANTOINE M.D. , Staff Radiologist Dictated By- GOKUL METZGER M.D., Residen t Staff Physician- ANA ANTOINE M.D., Staff Radiologist Authenticated By- ANA ANTOINE M.D. , Staff Radiologist Procedure Note Interface, Rad Conversion - 09/05/2013 9:02 AM OIL WELL SERVICES SUPERVISOR REPORT Patient: GIACOMO TRAYLOR Phone #: [email or web address] Rec#: [id number] Sex: M : 1965 Javed#: [id number] Location: [place] [address] Check-in#: [id number] Procedure Requested: [id number] US VENOUS DUPLEX BILAT LOWER EXT Reason For Exam: SHORTNESS OF AIR Exam Ordered: 07/24/2013 0754 Exam Date/Time: 07/24/2013 0845 Check-in Date/Time: 07/24/2013 1024 Attendin BARBARA GOFF "" Requestin BARBARA GOFF "" Referrin NO, REFERRING DR Primary Care: [id number] ALEXSANDRA BERMUDEZ MD US VENOUS DUPLEX BILAT LOWER EXT Indication: Shortness of air Technique: Ultrasound duplex and color doppler flow examination of the bilateral lower extremity venous systems was performed. Findings: All visualized segments of the bilateral common femoral, greater saphenous, superficial femoral, profunda femoris, posterior tibial, peroneal, and popliteal veins are patent with good compressibility and augmentation. The calf veins are patent. Impression: No lower extremity DVT. READING SITE: [facility] ATTESTATION STATEMENT: The Staff Radiologist has personally reviewed this study and agrees with the findings in this report. Signed (Authenticated, Released) Date-Time: 07/24/[address] Freight- ANA ANTOINE M.D., Staff Radiologist Dictated By- OGKUL METZGER M.D., Resident Staff Physician- ANA ANTOINE M.D., Staff Radiologist Authenticated By- ANA ANTOINE M.D., Staff Radiologist Performing Organization Address City/State/Zipcode Ph one Number [place] * CBC and Diff (manual diff if necessary) (07/24/2013 2:35 AM OIL WELL SERVICES SUPERVISOR) WBC 10.04 4.00 - 11.00 TH/UL [facility]AB RBC 5.09 4.31 - 5.84 MIL/UL [facility] Hemoglobin 14.3 13.0 - 17.0 G/DL [facility] Hematocrit 42 40 - 50 % [facility] MCV 82 80 - 99 FL [facility] MCH 28 27 - 34 PG [facility] MCHC 34 32 - 36 % [facility] RDW 12.6 9.0 - 14.5 % [facility] Platelet Count 289 140 - 400 TH/UL [facility] MPV 10.0 9.4 - 12.3 FL [facility] % Neutrophils 62 45 - 78 % [facility] %Lymphocytes 28 15 - 47 % [facility] %Monocytes 5 0 - 12 % [facility] %Eosinophils 3 0 - 7 % [facility] Nucleated RBCs 0 0 - 0 /100 HL[facility] # Basophils 0.08 0.00 - 0.10 TH/UL [facility] # Eosinophils 0.30 0.00 - 0.40 TH/UL [facility] %Basophils 1 0 - 2 % [facility] # Monocytes 0.54 0.20 - 0.90 TH/UL [facility] # Lymphocytes 2.80 1.00 - 3.30 TH/UL [facility] # Granulocytes 6.32 1.70 - 6.80 TH/UL [facility] % Imm Grans 1 0 - 1 % [facility] Specimen Blood Performing Organization Address [facility] one Number [address]RL [address] [place] [address] HLAB [address] [place] [address] 11 * Lipid Panel (07/24/2013 2:35 AM OIL WELL SERVICES SUPERVISOR) Cholesterol 137 100 - 200 MG/DL HLAB Triglycerides 376 (H) 0 - 150 MG/DL [facility] HDL Cholesterol 22 (L) 40 - 110 MG/DL [facility] LDL Cholesterol 40 0 - 99 MG/DL [facility] Cholesterol/HDL 6.2 (H) 0.0 - 4.5 HL[facility] Ratio Non-HDL 115 0 - 130 MG/DL [facility] Cholesterol Specimen Blood Performing Organization Address [facility] one Number RL [address] [place], [place] [address] HLAB [address] [place] [address] 11 * Magnesium (07/24/2013 2:35 AM OIL WELL SERVICES SUPERVISOR) Magnesium 1.7 1.4 - 2.7 MG/DL HLAB Specimen Blood Performing Organization Address [facility] one Number [address]RL [address] [place], [place] [address] HLAB [address] [place] [address] 11 * MARISA Qualitative (07/24/2013 2:35 AM OIL WELL SERVICES SUPERVISOR) MARISA Qualitative Negative Negative [facility] Specimen Blood Performing Organization Address City/State/Zipcode Ph one Number [address]RL [address] [place], [place] [address] HLAB [address] [place], [place] [address] * XR Chest single view frontal (07/24/2013 2:20 AM OIL WELL SERVICES SUPERVISOR) Specimen Narrative Performed At REPORT G[facility] Patient: GIACOMO TRAYLOR Phone #: Med Rec#: [id number] Sex: M : 1965 Javed#: [id number] Location: [place] [address] Check-in#: [id number] Procedure Requested: [id number] DX CHEST SIN GLE VIEW Reason For Exam: CHEST PAIN Exam Ordered: 07/24/2013 021 6 Exam Date/Time: 07/24/2013234 Check-in Date/Time: 07/24/2013817 Attendin GINGER GOFF "" Requestin YISEL NAPOLES " " Referrin NO, REFERRING DR Primary Care: [id number] ALEXSANDRA BERMUDEZ MD DX CHEST SINGLE VIEW INDICATION: CHEST PAIN. COMPARISON STUDY: Chest radiograph from 2010. FINDINGS: Lordotic positioning. Lungs: Low lung volume. No focal airspa ce disease. Normal pulmonary vasculature. Pleura: No pleural effusion or pneumoth orax. Heart and Mediastinum: The cardiomedias tinal silhouette and great vessels are stable. Aortic stent graft. IMPRESSION: No acute cardiopulmonary process. ATTESTATION STATEMENT: The Staff Radiologist has personally re viewed the images and dictated, reviewed, or edited the final report. READING SITE: [facility]. Signed (Authenticated, Released) Date-T natasha: 07/24/[address] Freight- DON DUMONT M.D., Staff Radiologist Dictated By- KAHLIL LOVETT M.D., Res ident Staff Physician- DON DUMONT M.D., Staff Radiologist Authenticated By- DON DUMONT M.D., Staff Radiologist Procedure Note Interface, Rad Conversion - 09/05/2013 9:02 AM OIL WELL SERVICES SUPERVISOR REPORT Patient: GIACOMO TRAYLOR Phone #: Med Rec#: [id number] Sex: M : 1965 Javed#: [id number] Location: [place] [address] Check-in#: [id number] Procedure Requested: [id number] DX CHEST SINGLE VIEW Reason For Exam: CHEST PAIN Exam Ordered: 07/24/2013 0216 Exam Date/Time: 07/24/2013 0235 Check-in Date/Time: 07/24/2013 0818 Attendin BARBARA GOFF "" Requestin YISEL NAPOLES "" Referrin NO, REFERRING DR Primary Care: [id number] ALEXSANDRA BERMUDEZ MD DX CHEST SINGLE VIEW INDICATION: CHEST PAIN. COMPARISON STUDY: Chest radiograph from 2010. FINDINGS: Lordotic positioning. Lungs: Low lung volume. No focal airspace disease. Normal pulmonary vasculature. Pleura: No pleural effusion or pneumothorax. Heart and Mediastinum: The cardiomediastinal silhouette and great vessels are stable. Aortic stent graft. IMPRESSION: No acute cardiopulmonary process. ATTESTATION STATEMENT: The Staff Radiologist has personally reviewed the images and dictated, reviewed, or edited the final report. READING SITE: [facility]. Signed (Authenticated, Released) Date-Time: 07/24/[address] Freight- DON DUMONT M.D., Staff Radiologist Dictated By- KAHLIL LOVETT M.D., Resident Staff Physician- DON DUMONT M.D., Staff Radiologist Authenticated By- DON DUMONT M.D., Staff Radiologist Performing Organization Address City/State/Zipcode Ph one Yasmin MYLESELVIAJUAN DAVID documented in this encounter Visit Diagnoses Diagnosis Acute myocardial infarction, subendocar dial infarction, initial episode of care (HCC) Acute myocardial infarction, subendocar dial infarction, initial episode of care documented in this encounter
--- OUTSIDE RECORDS SUMMARY | 2019-08-27 20:59 | XMS REPORT | Encounter Summary ---
Author Author [facility] Organization [facility] Address Unknown Phone Unavailable Care Team Providers Care Hot Billet Shear Operator Name Role Phone Leanne Xiong PCP Unavailable Encounter Details Care Team Description Date Type Department Heavenly Bobby, RN ANP-BC [address] [facility] [address] [place] [address] [phone] 07/25/2013 [facility] [...]
--- OUTSIDE RECORDS SUMMARY | 2019-08-27 20:59 | XMS REPORT | Encounter Summary ---
Author Author [facility] Organization [facility] Address Unknown Phone Unavailable Care Team Providers Care Silo Tender Name Role Phone Leanne Xiong PCP Unavailable Encounter Details Care Team Description Date Type Department Tamiko Morin MD [address] [facility] [address] [place] [address] [phone] 07/24/2013 [facility] [...]
--- OUTSIDE RECORDS SUMMARY | 2019-08-27 20:59 | XMS REPORT | Encounter Summary ---
Author Author [facility] Organization [facility] Address Unknown Phone Unavailable Care Team Providers Care Incoming Inspector Name Role Phone Leanne Xiong PCP Unavailable Encounter Details Care Team Description Date Type Department Tomi Goff MD [address] [facility] [address] [place] [address] [phone] 07/26/2013 [facility] [...]
--- OUTSIDE RECORDS SUMMARY | 2019-08-27 20:59 | XMS REPORT | Encounter Summary ---
Author Author [facility] Organization [facility] Address Unknown Phone Unavailable Care Team Providers Care Pbx Wire Chief Name Role Phone Leanne Xiong PCP Unavailable Encounter Details Care Team Description Date Type Department Tamiko Morin MD [address] [facility] [address] [place] [address] [phone] 07/25/2013 [facility] [...]
--- OUTSIDE RECORDS SUMMARY | 2019-08-27 20:59 | XMS REPORT | Encounter Summary ---
Author Author [facility] Organization [facility] Address Unknown Phone Unavailable Care Team Providers Care Automotive Wholesale Parts Advisor Name Role Phone Leanne Xiong PCP Unavailable Encounter Details Care Team Description Date Type Department [facility] Provider, MD Johanna 07/24/2013 [facility] HISTORIC CLINI C Result Social History [...] Name Priority Date/Time Associated Diag nosis ECHO HISTORICAL Routine 07/24/2013 documented in this encounter Results * Echo historical (07/24/2013) Specimen Narrative Performed At Procedure Category: ECHO NEXTGEN Procedure: Echocardiogram Procedure Summary: 1. Hyperdynamic le ft ventricular systolic function, with an estimated ejection fraction of 75%. 2. Normal valves. Procedure Note Interface, Rad Conversion - 01/26/2015 1:09 PM CDT Procedure Category: ECHO Procedure: Echocardiogram Procedure Summary: 1. Hyperdynamic left ventricular systolic function, with an estimated ejection fraction of 75%. 2. Normal valves. Performing Organization Address City/State/Zipcode Ph one Number NEXTGEN documented in this encounter Visit Diagnoses Not on filedocumented in this encounter
--- OUTSIDE RECORDS SUMMARY | 2019-08-27 20:59 | XMS REPORT | Encounter Summary ---
Author Author [facility] Organization [facility] Address Unknown Phone Unavailable Care Team Providers Care Print Shop Chief Clerk Name Role Phone Leanne Xiong PCP Unavailable Encounter Details Care Team Description Date Type Department [facility] Provider, MD Johanna 07/24/2013 [facility] HISTORIC CLINI C Result Social [...] Performed At Procedure Category: Invasive NEXTGEN Procedure: PCI Procedure Summary: BMS - A 3.5X15 Int egrity RX bare-metal stent insertion was performed on the 95% lesion in the 1st obtuse marginal to 16 noemi. Following intervention there was a 0% residual st enosis. Procedure Note Interface, Rad Conversion - 01/26/2015 12:59 PM CDT Procedure Category: Invasive Procedure: PCI Procedure Summary: BMS - A 3.5X15 Integrity RX bare-metal stent insertion was performed on the 95% lesion in the 1st obtuse marginal to 16 noemi. Following intervention there was a 0% residual stenosis. Performing Organization Address City/State/Zipcode Ph one Number [facility] documented in this encounter Visit Diagnoses Not on filedocumented in this encounter
--- OUTSIDE RECORDS SUMMARY | 2019-08-27 20:59 | XMS REPORT | Encounter Summary ---
Author Author [facility] Organization [facility] Address Unknown Phone Unavailable Care Team Providers Care Toby Maker Name Role Phone Leanne Xiong PCP Unavailable Encounter Details Care Team Description Date Type Department Tamiko Morin MD [address] [facility] [address] [place] [address] [phone] 07/24/2013 [facility] [...]
--- OUTSIDE RECORDS SUMMARY | 2019-08-27 20:59 | XMS REPORT | Encounter Summary ---
Author Author [facility] Organization [facility] Address Unknown Phone Unavailable Care Team Providers Care Medical Equipment Technician Name Role Phone Leanne Xiong PCP Unavailable Encounter Details Care Team Description Date Type Department [facility] Provider, MD Johanna 07/24/2013 [facility] HISTORIC CLINI C Result Social History Date [...] Name Priority Date/Time Associated Diag nosis CV US VENOUS LOWER Routine 07/24/2013 EXTREMITY HISTORICAL documented in this encounter Results * CV US Venous lower extremity historical (07/24/2013) Specimen Narrative Performed At Procedure Category: Echo NEXTGEN Procedure: Lower extremity venous duple x Procedure Summary: No lower extremity D VT. Procedure Note Interface, Rad Conversion - 01/26/2015 12:59 PM CDT Procedure Category: Echo Procedure: Lower extremity venous duplex Procedure Summary: No lower extremity DVT. Performing Organization Address City/State/Zipcode Ph one Number NEXTGEN documented in this encounter Visit Diagnoses Not on filedocumented in this encounter
--- OUTSIDE RECORDS SUMMARY | 2019-08-27 20:59 | XMS REPORT | Encounter Summary ---
Author Author [facility] Organization [facility] Address Unknown Phone Unavailable Care Team Providers Care Certified Adapted Physical Educator Name Role Phone Leanne Xiong PCP Unavailable Encounter Details Care Team Description Date Type Department [facility] Provider, MD Johanna 07/24/2013 [facility] EF [facility] HISTORIC CLINI C Social History Date [...] Associated Diag nosis ECHO EJECTION FRACTION Routine 07/24/2013 HISTORICAL 9:12 AM IT ADMINISTRATIVE ASSISTANT documented in this encounter Results * Echo Ejection Fraction historical (07/24/2013 9:12 AM IT ADMINISTRATIVE ASSISTANT) Ejection 75Comment: Echo PROSOLV Fraction Specimen Performing Organization Address City/State[facility] Ph one Number PROSOLV documented in this encounter Visit Diagnoses Not on filedocumented in this encounter
--- OUTSIDE RECORDS SUMMARY | 2019-08-27 20:59 | XMS REPORT | Encounter Summary ---
Author Author [facility] Organization [facility] Address Unknown Phone Unavailable Care Team Providers Care Repairer Evaporator Name Role Phone Leanne Xiong PCP Unavailable Encounter Details Care Team Description Date Type Department Tomi Goff MD [address] [facility] [address] [place] [address] [phone] 07/24/2013 [facility] [...]
--- OUTSIDE RECORDS SUMMARY | 2019-08-27 20:59 | XMS REPORT | Encounter Summary ---
Author Author [facility] Organization [facility] Address Unknown Phone Unavailable Care Team Providers Care Tumor Registrar Name Role Phone Leanne Xiong PCP Unavailable Encounter Details Care Team Description Date Type Department Tomi Goff MD [address] [facility] [address] [place] [address] [phone] 07/25/2013 [facility] [...]
--- OUTSIDE RECORDS SUMMARY | 2019-08-27 20:59 | XMS REPORT | Encounter Summary ---
Author Author [facility] Organization [facility] Address Unknown Phone Unavailable Care Team Providers Care Explosives Operator Name Role Phone Leanne Xiong PCP Unavailable Encounter Details Care Team Description Date Type Department [place] [address] [facility] [address] [place] [address] [phone] 08/06/2013 [facility] [...]
--- OUTSIDE RECORDS SUMMARY | 2019-08-27 21:00 | XMS REPORT | Encounter Summary ---
Author Author [facility] Organization [facility] Address Unknown Phone Unavailable Care Team Providers Care Electronic Field Service Engineer Name Role Phone Leanne Xiong PCP Unavailable Encounter Details Care Team Description Date Type Department [facility] Provider, MD Johanna 03/24/2013 [facility] EF [facility] HISTORIC CL[facility]I C Social History Date [...] Procedure Name Priority Date/Time Associated Diag nosis NUC EJECTION FRACTION Routine 03/24/2013 HISTORICAL 12:00 AM CDT documented in this encounter Results * Nuc Ejection Fraction historical (03/24/2013 12:00 AM CDT) Ejection 70Comment: 2-Day Nuclear [facility] Fraction Studies (Exercise [id number]) Specimen Performing Organization Address City/State/[facility] Ph one Number [facility] documented in this encounter Visit Diagnoses Not on filedocumented in this encounter
--- OUTSIDE RECORDS SUMMARY | 2019-08-27 21:00 | XMS REPORT | Encounter Summary ---
Author Author [facility] Organization [facility] Address Unknown Phone Unavailable Care Team Providers Care Instructional Design Consultant Name Role Phone Leanne Xiong PCP Unavailable Encounter Details Care Team Description Date Type Department Leanne Xiong MD 01/17/2013 [facility] Social History Date Tobacco Use Types Packs/Day [...]
--- OUTSIDE RECORDS SUMMARY | 2019-08-27 21:00 | XMS REPORT | Encounter Summary ---
Author Author [facility] Organization [facility] Address Unknown Phone Unavailable Care Team Providers Care Turf Keeper Name Role Phone Leanne Xiong PCP Unavailable Encounter Details Care Team Description Date Type Department 06/20/2013 Hist-Telephone [facility] Social History Date Tobacco Use Types Packs/Day Years Used Never Assessed Sex Assigned at Date Recorded Not on file Industry Job Start Date Occupation Not on file Not on file Not on file Travel End Travel History Travel Start No recent travel history available. documented as of this encounter Progress Notes * Provider, MD Johanna - 06/20/2013 3:48 PM IT HELP DESK MANAGER Recorded as Task Date: 05/22/2013 12:14 PM, Created By: Tita Keys Task Name: CODI Assigned To: MICHAEL GROSS Regarding Patient: GIACOMO TRAYLOR, Status: Active Comment: Tita Keys - 22 May 2013 12:14 PM TASK CREATED Pt has been termed by MARCELLO due to no-shows, pt called on 05/21/13 to dispute the t ermination. He was verbally abusive and implied that someone was out to get him and was doing this to him on purpose; I told him this was not the case but that I would check with MARCELLO and the decision was hers to make. MARCELLO wants the term to stand. I called pt back 05/22/13 to relay that term still stands and he said he had "already written a letter today (to who?) cause he figured out who was doing this to him." I asked him to talk to me about it and he refused saying "you w ould just go telling everyone and mess stuff up." At which point he hung up the phone. kb Electronically signed by:MICHAEL GROSS Jun 20 2013 3:48PM IT HELP DESK MANAGER Author documented in this encounter Plan of Treatment Not on filedocumented as of this encounter Visit Diagnoses Not on filedocumented in this encounter
--- OUTSIDE RECORDS SUMMARY | 2019-08-27 21:00 | XMS REPORT | Encounter Summary ---
Author Author [facility] Organization [facility] Address Unknown Phone Unavailable Care Team Providers Care Ripper Operator Name Role Phone Leanne Xiong PCP Unavailable Encounter Details Care Team Description Date Type Department [place] Provider, MD Johanna 03/24/2013 [facility] C Result Social History [...] Name Priority Date/Time Associated Diag nosis CV MPI SPECT HISTORICAL Routine 03/24/2013 documented in this encounter Results * CV MPI SPECT historical (03/24/2013) Specimen Narrative Performed At Procedure Category: NUC NEXTGEN Procedure: 2-Day Regadenoson Sestamibi Procedure Summary: Two-day regadenoson gated SPECT myocardial perfusion study appears within normal limits apart from a mild fixed perfusion abnormality inferolaterally thought to be the resul t of diaphragmatic attenuation artifact.Normal left ventricular systolic function. Left jennifer tricular ejection fraction at rest is 70%.Image quality compromised to some e xtent by some patient motion, and in particular soft tissue attenuation killian fact (patient s body mass index 47). Procedure Note Interface, Rad Conversion - 01/26/2015 2:44 PM CDT Procedure Category: NUC Procedure: 2-Day Regadenoson Sestamibi Procedure Summary: Two-day regadenoson gated SPECT myocardial perfusion study appears within normal limits apart from a mild fixed perfusion abnormality inferolaterally thought to be the result of diaphragmatic attenuation artifact.Normal left ventricular systolic function. Left ventricular ejection fraction at rest is 70%.Image quality compromised to some extent by some patient motion, and in particular soft tissue attenuation artifact (patient s body mass index 47). Performing Organization Address City/State/Zipcode Ph one Number NEXTGEN documented in this encounter Visit Diagnoses Not on filedocumented in this encounter
--- OUTSIDE RECORDS SUMMARY | 2019-08-27 21:00 | XMS REPORT | Encounter Summary ---
Author Author [facility] Organization [facility] Address Unknown Phone Unavailable Care Team Providers Care Agent Telegrapher Name Role Phone PCP Unavailable Encounter Details Care Team Description Date Type Department Leanne Xiong MD 03/21/2013 [facility] Encounter [address] [place] [address] Social History Date Tobacco Use Types Packs/Day Years Used Never Assessed Sex Assigned at Date Recorded Not on file Industry Job Start Date Occupation Not on file Not on file Not on file Travel End Travel History Travel Start No recent travel history available. documented as of this encounter Medications at Time of Discharge Start Date End Date Medication Sig Dispensed Refills 08/16/2011 carvedilol (COREG) 6.25 take 1 tablet [...] 90 0 MG tablet DAILY AT BEDTIME. 04/23/2013 02/10/2015 BYSTOLIC 5 mg tablet TAKE [...] MED TAKE 1 30 0 CAPSULE DAILY. 02/28/2013 02/10/2015 metFORMIN (GLUCOPHAGE-XR) TAKE 1 TABLET 30 0 500 MG ER 24 hr tablet DAILY 08/16/2011 02/10/2015 simvastatin (ZOCOR) 20 MG take 1 tablet 30 11 tablet (20MG) by oral route every day in the evening 06/16/2011 02/10/2015 simvastatin (ZOCOR) 20 MG take 1 tablet 30 11 tablet (20MG) by oral route every day in the evening 03/01/2012 02/10/2015 triamcinolone (KENALOG) APPLY 15 0 0.5 % cream SPARINGLY AND MASSAGE IN TWICE DAILY. 02/03/2013 02/10/2015 VITAMIN D2 50,000 unit TAKE 1 4 0 capsule CAPSULE WEEKLY. documented as of this encounter Plan of Treatment Not on filedocumented as of this encounter Procedures Comments Procedure Name Priority Date/Time Associated Diag nosis LIPID PANEL Routine 03/21/2013 12:29 PM CDT HEPATIC FUNCTION PANEL Routine 03/21/2013 12:29 PM CDT documented in this encounter Results * Lipid Panel (03/21/2013 12:29 PM CDT) Cholesterol 134 100 - 200 MG/DL [facility] Triglycerides 379 (H) 0 - 150 MG/DL [facility] HDL Cholesterol 18 (L) 40 - 110 MG/DL [facility] LDL Cholesterol 40 0 - 99 MG/DL [facility] Cholesterol/HDL 7.4 (H) 0.0 - 4.5 [facility] Ratio Hours 12 [facility] Postprandial Non-HDL 116 0 - 130 MG/DL [facility] Cholesterol Specimen Blood Performing Organization Address [facility] one Number [id number] [phone] [phone] [facility] * Hepatic Function Panel (03/21/2013 12:29 PM CDT) Albumin 4.0 3.5 - 5.0 G/DL [facility] Bilirubin 0.0 0.0 - 0.4 MG/DL [facility] Direct Bilirubin Total 1.1 0.2 - 1.3 MG/DL [facility] Alkaline 73 42 - 140 IU/L [facility] Phosphatase Alanine 50 13 - 69 IU/L [facility] Aminotransferas e Aspartate 32 15 - 46 IU/L [facility] Aminotransferas e Protein Total 7.1 6.0 - 8.2 G/DL [facility] Serum Specimen Blood Performing Organization Address [facility] one Number [facility] [phone] [phone] [facility] documented in this encounter Visit Diagnoses Not on filedocumented in this encounter
--- OUTSIDE RECORDS SUMMARY | 2019-08-27 21:00 | XMS REPORT | Encounter Summary ---
Author Author [facility] Organization [facility] Address Unknown Phone Unavailable Care Team Providers Care Nutritionist Public Health Name Role Phone Leanne Xiong PCP Unavailable Encounter Details Care Team Description Date Type Department ProviderJohanna MD [address] [place] [address] 03/07/2013 [facility] [place] En[place] [address] [place], [place] [id number] Social History Date Tobacco Use Types Packs/Day Years Used Never Assessed Sex Assigned at Date Recorded Not on file Industry Job Start Date Occupation Not on file Not on file Not on file Travel End Travel History Travel Start No recent travel history available. 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 P t asked me to contact Марина at [facility] [phone]. Spoke with Марина and she reporte d that test would not be able to be done by the , due to holiday and processi ng those of medical necessity first. I faxed order to [phone] per ok from Felicita Velazquez, patient notified. Electronically signed by:Sarah Kidd Mar 07 2013 10:32AM GRIPPER MACHINE OPERATOR Author documented in this encounter Plan of Treatment Not on filedocumented as of this encounter Visit Diagnoses Not on filedocumented in this encounter
--- OUTSIDE RECORDS SUMMARY | 2019-08-27 21:00 | XMS REPORT | Encounter Summary ---
Author Author [facility] Organization [facility] Address Unknown Phone Unavailable Care Team Providers Care Infantry Officer Name Role Phone Leanne Xiong PCP Unavailable Encounter Details Care Team Description Date Type Department Leanne Xiong MD 01/17/2013 [facility] Note [facility] Primar y Care - [address] [place], [place] [id number] Social History Date Tobacco Use Types Packs/Day Years Used Never Assessed Sex Assigned at Date Recorded Not on file Industry Job Start Date Occupation Not on file Not on file Not on file Travel End Travel History Travel Start No recent travel history available. documented as of this encounter Miscellaneous Notes * Miscellaneous - Leanne Xiong MD - 01/17/2013 11:30 AM CDT Verified Results Collected/Examined: Jan 17, 2013 12:21PM Test Result Flag Acceptable Hemoglobin A1C 7.4 % H 4.0-5.6 Non-diabetic 4.0 - 5.6 %^^ Prediabetes 5.7 - 6.4 %^^ Diabetes >= 6.5 %^^ Microalbumin Urine Albert Microalbumin Mg/L <0.50 mg/dL Creatinine, Urine Random Quant 89.5 mg/dL Microalbumin/Creatinine Ratio Not Calc ug/mg 0.00-16.00 Microalbumin is too low to be measured. Calculation cannot be performed^^ Lipid Profile Hours Post Prandial 12 Cholesterol Lipid Prof 153 mg/dL 100-200 Triglycerides 279 mg/dL H 0-150 Hdl 20 mg/dL L 40-110 Ldl Cholesterol 77 mg/dL 0-99 Total Cholesterol/Hdl Ratio 7.7 H 0.0-4.5 Non- HDL Cholesterol 133 mg/dL H 0-130 CMP-Comprehensive Metabolic Panel Albumin 4.3 g/dL 3.5-5.0 Aspartate Aminotransferase 31 IU/L 15-46 Alanine Aminotransferase 43 IU/L 13-69 Bilirubin Total 0.7 mg/dL 0.2-1.3 Protein Total Serum 7.9 g/dL 6.0-8.2 Calcium 10.2 mg/dL 8.4-10.2 Creatinine 1.1 mg/dL 0.6-1.3 Glucose 102 mg/dL H 70-100 Alkaline Phosphatase 84 IU/L 42-140 Sodium 147 MEQ/L 133-147 Potassium 5.2 MEQ/L 3.5-5.3 Potassium reference interval changed on 12/04/2012.^^ Chloride 108 MEQ/L 96-112 Anion Gap 14 5-17 Blood Urea Nitrogen 18 mg/dL 7-26 Carbon Dioxide 25 MEQ/L 20-30 Gfrm Aa 87 Chronic Kidney Disease less than 60 mL/min/1.73 sq.m^^ Kidney failure less than 15 mL/min/1.73 sq.m^^ Gfrm Non Aa 72 Chronic Kidney Disease less than 60 mL/min/1.73 sq.m^^ Kidney failure less than 15 mL/min/1.73 sq.m^^ Discussion/Summary lipids are higher, advise to increase lipitor to 40 mg and recheck lipid and ted er in 6 weeks. HDL is low and triglycerides are elevated, increase fish oil to 4 pills daily as discussed. A1c is slightly better. I would advise to change to janumet XR to 100/1000 daily and recheck A1c in 3 months. Signatures Electronically signed by : LEANNE XIONG M.D.; Jan 17 2013 5:49PM (Author) * Miscellaneous - Leanne Xiong MD - 01/17/2013 11:30 AM CDT Verified Results Collected/Examined: Jan 17, 2013 12:21PM Test Result Flag Acceptable Hemoglobin A1C [Jan 17, 2013 5:48PM LEANNE XIONG] lipids are higher, advise to increase lipitor to 40 mg and recheck lipid and ted er in 6 weeks. HDL is low and triglycerides are elevated, increase fish oil to 4 pills daily as discussed. A1c is slightly better. I would advise to change to j anumet XR to 100/1000 daily and recheck A1c in 3 months. Hemoglobin A1C 7.4 % H 4.0-5.6 Non-diabetic 4.0 - 5.6 %^^ Prediabetes 5.7 - 6.4 %^^ Diabetes >= 6.5 %^^ Microalbumin Urine Albert [Jan 17, 2013 5:48PM LEANNE XIONG] lipids are higher, advise to increase lipitor to 40 mg and recheck lipid and ted er in 6 weeks. HDL is low and triglycerides are elevated, increase fish oil to 4 pills daily as discussed. A1c is slightly better. I would advise to change to j anumet XR to 100/1000 daily and recheck A1c in 3 months. Microalbumin Mg/L <0.50 mg/dL Creatinine, Urine Random Quant 89.5 mg/dL Microalbumin/Creatinine Ratio Not Calc ug/mg 0.00-16.00 Microalbumin is too low to be measured. Calculation cannot be performed^^ Lipid Profile [Jan 17, 2013 5:48PM LEANNE XIONG] lipids are higher, advise to increase lipitor to 40 mg and recheck lipid and ted er in 6 weeks. HDL is low and triglycerides are elevated, increase fish oil to 4 pills daily as discussed. A1c is slightly better. I would advise to change to j anumet XR to 100/1000 daily and recheck A1c in 3 months. Hours Post Prandial 12 Cholesterol Lipid Prof 153 mg/dL 100-200 Triglycerides 279 mg/dL H 0-150 Hdl 20 mg/dL L 40-110 Ldl Cholesterol 77 mg/dL 0-99 Total Cholesterol/Hdl Ratio 7.7 H 0.0-4.5 Non- HDL Cholesterol 133 mg/dL H 0-130 CMP-Comprehensive Metabolic Panel [Jan 17, 2013 5:48PM LEANNE XIONG] lipids are higher, advise to increase lipitor to 40 mg and recheck lipid and ted er in 6 weeks. HDL is low and triglycerides are elevated, increase fish oil to 4 pills daily as discussed. A1c is slightly better. I would advise to change to j anumet XR to 100/1000 daily and recheck A1c in 3 months. Albumin 4.3 g/dL 3.5-5.0 Aspartate Aminotransferase 31 IU/L 15-46 Alanine Aminotransferase 43 IU/L 13-69 Bilirubin Total 0.7 mg/dL 0.2-1.3 Protein Total Serum 7.9 g/dL 6.0-8.2 Calcium 10.2 mg/dL 8.4-10.2 Creatinine 1.1 mg/dL 0.6-1.3 Glucose 102 mg/dL H 70-100 Alkaline Phosphatase 84 IU/L 42-140 Sodium 147 MEQ/L 133-147 Potassium 5.2 MEQ/L 3.5-5.3 Potassium reference interval changed on 12/04/2012.^^ Chloride 108 MEQ/L 96-112 Anion Gap 14 5-17 Blood Urea Nitrogen 18 mg/dL 7-26 Carbon Dioxide 25 MEQ/L 20-30 Gfrm Aa 87 Chronic Kidney Disease less than 60 mL/min/1.73 sq.m^^ Kidney failure less than 15 mL/min/1.73 sq.m^^ Gfrm Non Aa 72 Chronic Kidney Disease less than 60 mL/min/1.73 sq.m^^ Kidney failure less than 15 mL/min/1.73 sq.m^^ Discussion/Summary lipids are higher, advise to increase lipitor to 40 mg and recheck lipid and ted er in 6 weeks. HDL is low and triglycerides are elevated, increase fish oil to 4 pills daily as discussed. A1c is slightly better. I would advise to change to janumet XR to 100/1000 daily and recheck A1c in 3 months. Signatures Electronically signed by : LEANNE XIONG M.D.; Jan 17 2013 5:49PM (Author) documented in this encounter Plan of Treatment Not on filedocumented as of this encounter Visit Diagnoses Not on filedocumented in this encounter
--- OUTSIDE RECORDS SUMMARY | 2019-08-27 21:00 | XMS REPORT | Encounter Summary ---
Author Author [facility] Organization [facility] Address Unknown Phone Unavailable Care Team Providers Care Sawmill Equipment Operator Name Role Phone PCP Unavailable Encounter Details Care Team Description Date Type Department Leanne Xiong MD Aortic aneurysm of unspecified site with out mention of rupture (HCC) 03/24/2013 [facility] 03/25/2013 [address] [place] [address] Social History Date Tobacco Use Types Packs/Day [...] Priority Date/Time Associated Diag nosis CV MPI PHARMACOLOGIC Routine 03/24/2013 SPECT REST STRESS 10:30 AM CDT documented in this encounter Results * CV MPI Pharmacologic Spect rest stress (03/24/2013 10:30 AM CDT) Specimen Narrative Performed At NAME: GIACOMO TRAYLOR [facility] : [id number] AGE: 47 GENDER: M ACCOUNT NUM: [id number] TEST: 2-DAY STRESS REGADENOSON/REST S ESTAMIBI SPECT SCINTIGRAPHIC REPORT TEST DATE: TEST LOCATION: B REFERRING PHYSICIAN: Leanne Xiong MD SUPERVISING PHYSICIAN: Shun Morton rd, MD MEDICATIONS MEDS LAST 24 HOURS: N/A MEDS HELD LAST 24 HOURS: Metformin, Fen ofibrate, Janumet, Bystolic ALLERGIES: NKDA HOURS SINCE LAST CAFFEINE: 24 INDICATIONS FOR TEST: Hyperlipidemia, H ypertension, Abnormal ECG REASON FOR PHARMICOLOGICAL STRESS: Limi ting Symptoms PROCEDURAL NOTE: After a four-hour fast , an intravenous line was inserted and an infusion of normal saline was starte d. A total of 0.4mg regadenoson was injected over 10 seconds at a dosage of 0.08mg/ml immediately followed by a 5ml normal saline flush. Within 20 se conds, 33 mCi of Tc-99m sestamibi was injected intravenously. Approximately 23 hours later, 180 degree arc gated tomographic imaging was begun in the supine position. Approximately 1 ho ur later, the patient was injected with 31.7 mCi of Tc-99m sestamibi. Approximatel y 1 hour later, 180 degree arc gated tomographic imaging was performed in th e supine position. <B>CLINICAL RESPONSE:</B> The heart r ate at rest was 64 beats per minute. After the regadenoson injection the hea rt rate was 86 beats per minute. The blood pressure at baseline was 119/73 mmHg. At the end of the regadenoson injection it was 123/79 mmHg. The patient experienced the following symptoms during the test: shortness of breath, flushing, headache, head tingling, neck discomfort, chest discom fort. LOPEZ TREADMILL SCORE: N/A ECG Findings: The resting 12-lead hayder ctrocardiogram showed normal sinus rhythm, left anterior fascicular block, poor progression of R waves across the anterior leads. Following regadenoson s tress there were no significant ECG changes. No significant arrhythmias wer e detected. Scintographic Findings: The tomograph ic images appear within normal limits apart from a mild fixed perfusion abnor mality inferolaterally thought to be the result of diaphragmatic attenuation artifact. The left ventricle does not dilate with stress. The gated tomograms show normal wall motion and thickening in all areas. The left ventr icular ejection fraction at rest is 70%, 66% post stress. IN SUMMARY, the clinical, electrocardio graphic, and scintigraphic findings in this 47-year-old male being evaluated f or possible CAD using regadenoson are as follows: 1. Clinical response: Non -Diagnostic (Regadenoson) 2. Electrocardiographic response: Non-Diag nostic (baseline abnormalities), 3. Scintigraphic response: Non-Ischemic COMBINED TEST RESULTS: Two-day regade noson gated SPECT myocardial perfusion study appears within normal limits apar t from a mild fixed perfusion abnormality inferolaterally thought to be the result of diaphragmatic attenuation artifact.Normal left ventri cular systolic function. Left ventricular ejection fraction at rest i s 70%.Image quality compromised to some extent by some patient motion, and in p articular soft tissue attenuation artifact (patients body mass inde x 47). Timothy Bower MD [address] [facility], [address] [place] [address] DICTATED DATE: 2013-03-25 00:00:00.0 SENIOR MEDIA BUYER DATETIME: 2013-03-26 08:0 2:54.0 ACTUAL TEST TIME: PROVIDER APPROVAL DATETIME: 2013-03-26 10:33:56.0 Procedure Note Interface, Rad Conversion - 09/16/2013 10:30 AM CDT NAME: GIACOMO TRAYLOR : [id number] AGE: 47 GENDER: M ACCOUNT NUM: [id number] TEST: 2-DAY STRESS REGADENOSON/REST SESTAMIBI SPECT SCINTIGRAPHIC REPORT TEST DATE: TEST LOCATION: B REFERRING PHYSICIAN: Leanne Xiong MD SUPERVISING PHYSICIAN: Shun Sheth MD MEDICATIONS MEDS LAST 24 HOURS: N/A MEDS HELD LAST 24 HOURS: Metformin, Fenofibrate, Janumet, Bystolic ALLERGIES: NKDA HOURS SINCE LAST CAFFEINE: 24 INDICATIONS FOR TEST: Hyperlipidemia, Hypertension, Abnormal ECG REASON FOR PHARMICOLOGICAL STRESS: Limiting Symptoms PROCEDURAL NOTE: After a four-hour fast, an intravenous line was inserted and an infusion of normal saline was started. A total of 0.4mg regadenoson was injected over 10 seconds at a dosage of 0.08mg/ml immediately followed by a 5ml normal saline flush. Within 20 seco nds, 33 mCi of Tc-99m sestamibi was injected intravenously. Approximately 23 hours later, 180 degree arc gated tomographic imaging was begun in the supine position. Approximately 1 hour later, the patient was injected with 31.7 mCi of Tc-99m sestamibi. Approximately 1 hour later, 180 degree arc gated tomographic imaging was performed in the supine position. <B>CLINICAL RESPONSE:</B> The heart rate at rest was 64 beats per minute. After the regadenoson injection the heart rate was 86 beats per minute. The blood pressure at baseline was 119/73 mmHg. At the end of the regadenoson injection it was 123/79 mmHg. The patient experienced the following symptoms during the test: shortness of breath, flushing, headache, head tingling, neck discomfort, chest discomfort. LOPEZ TREADMILL SCORE: N/A ECG Findings: The resting 12-lead electrocardiogram showed normal sinus rhythm, left anterior fascicular block, poor progression of R waves across the anterior leads. Following regadenoson stress there were no significant ECG changes. No significant arrhythmias were detected. Scintographic Findings: The tomographic images appear within normal limits apart from a mild fixed perfusion abnormality inferolaterally thought to be the result of diaphragmatic attenuation artifact. The left ventricle does not dilate with stress. The gated tomograms show normal wall motion and thickening in all areas. The left ventricular ejection fraction at rest is 70%, 66% post stress. IN SUMMARY, the clinical, electrocardiographic, and scintigraphic findings in this 47-year-old male being evaluated for possible CAD using regadenoson are as follows: 1. Clinical response: Non-Diagnostic (Regadenoson) 2. Electrocardiographic response: Non-Diagnostic (baseline abnormalities), 3. Scintigraphic response: Non-Ischemic COMBINED TEST RESULTS: Two-day regadenoson gated SPECT myocardial perfusion study appears within normal limits apart from a mild fixed perfusion abnormality inferolaterally thought to be the result of diaphragmatic attenuation artifact.Normal left ventricular systolic function. Left ventricular ejection fraction at rest is 70%.Image quality compromised to some extent by some patient motion, and in particular soft tissue attenuation artifact (patients body mass index 47). Timothy Bower MD [address] [facility], [address] [place] [address] DICTATED DATE: 2013-03-25 00:00:00.0 SENIOR MEDIA BUYER DATETIME: 2013-03-26 08:02:54.0 ACTUAL TEST TIME: PROVIDER APPROVAL DATETIME: 2013-03-26 10:33:56.0 Performing Organization Address City/State/Zipcode Ph one Number [facility] [address] [place] [address] documented in this encounter Visit Diagnoses Diagnosis Aortic aneurysm of unspecified site yuri perdomo mention of rupture documented in this encounter
--- OUTSIDE RECORDS SUMMARY | 2019-08-27 21:00 | XMS REPORT | Encounter Summary ---
Author Author [facility] Organization [facility] Address Unknown Phone Unavailable Care Team Providers Care Secure Software Assessor Name Role Phone Leanne Xiong PCP Unavailable Encounter Details Care Team Description Date Type Department Jazz Felipe DO [address] [place] [address] [phone] 03/06/2013 [facility]Appointmen [facility] t Social History Date Tobacco Use Types Packs/Day Years Used Never Assessed Sex Assigned at Date Recorded Not on file Industry Job Start Date Occupation Not on file Not on file Not on file Travel End Travel History Travel Start No recent travel history available. 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 History of Present Illness Free Text HPI: Pt presents to clinic to have EKG done as a requirement for his j ob. 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 They require this because of his past cardiac histor y. Pt reports a hx of aortic dissection with stent placement. He also has HLD, t obacco use, HTN and DM-2 all cardiovascular risk factors. He has changed his t and has had success with some weight loss and is hoping to lose overall about 90 pounds to be able to come off some medications. He is using the e-cigarette t o cut down the number of cigarettes per day and will be starting Chantix next we ek. He denies CP, DRAKE, SOA, palpitations, pre-syncope, LE edema. No other compla ints or concerns today. Current Meds 1. ALPRAZolam 1 MG Oral Tablet; TAKE 1 TABLET 3 TIMES DAILY NEEDED. MAY CAUSE DROWSINESS; Therapy: 10Nov2011 to (Evaluate:59Wws6625) Requested for: 3; Last Rx:30Dec2012 2. Atorvastatin Calcium 40 MG Oral Tablet; TAKE 1 TABLET DAILY AT BEDTIME; Thera py: 09Apr2012 to (Evaluate:19Jul2013) Requested for: 15Nnf4028; Last Rx:25Hkf1175 3. Bystolic 5 MG Oral Tablet; TAKE 1 TABLET DAILY; Therapy: 24Hwv7578 to (Evalua te:12Sep2013); Last Rx:53Dwe0094 4. Bystolic 5 MG Oral Tablet; TAKE 1 TABLET DAILY; Therapy: 76Vkz1028 to (Evalua te:30Oct2013) Requested for: 20Uwo9271; Last Rx:[id number] 5. Cetirizine HCl 10 MG Oral Tablet; TAKE 1 TABLET DAILY; Therapy: 62Ggh7113 to (Evaluate:92Irc0579) Requested for: 17Sep2012; Last Rx:17Sep2012 6. Fenofibrate 160 MG Oral Tablet; TAKE 1 TABLET DAILY; Therapy: 55Ktz6532 to (Evaluate:16Ebw4389) Requested for: 17Sep2012; Last Rx:17Sep2012 7. Fish Oil 1000 MG Oral Capsule; TAKE 1 CAPSULE DAILY; Therapy: 07Oct2012 to (Evaluate:06Nov2012) 8. Fluticasone Propionate 50 MCG/ACT Nasal Suspension; USE 2 SPRAYS IN EACH NOST RIL ONCE DAILY; Therapy: 07Hss1648 to (Complete:48Jqx8267) Requested for: ; Last Rx:17Sep2012 9. Hydrocodone-Acetaminophen 7.5-325 MG Oral Tablet; TAKE ONE TABLET EVERY 8 RIGOBERTO RS NEEDED FOR PAIN; Therapy: 22Mdz6324 to (Evaluate:12Yzr2398) Requested for: ; Last Rx:[id number] 10. Ibuprofen 800 MG Oral Tablet; TAKE 1 TABLET 3 TIMES DAILY NEEDED; Therapy : 67Upj1443 to (Evaluate:98Wja8500) Requested for: 17Sep2012; Last Rx:17Sep2012 11. Janumet XR 100-1000 MG Oral Tablet Extended Release 24 Hour; TAKE 1 TABLET D AILY; Therapy: 15Usv4349 to (Evaluate:16Ttz1906) Requested for: 81Bvl4476; Last Rx: [id number] 12. MetFORMIN HCl ER 500 MG Oral Tablet Extended Release 24 Hour; TAKE 1 TABLET DAILY; Therapy: 15Nov2011 to (Evaluate:09Yob9377) Requested for: 21Fwx0795; Last Rx: 58Rct6460 13. TraMADol HCl 50 MG Oral Tablet; Therapy: 25Oct2012 to 14. Triamcinolone Acetonide 0.5 % External Cream; APPLY SPARINGLY AND MASSAGE IN TWICE DAILY; Therapy: 53Bgh3130 to (Evaluate:37Fsj1206) Requested for: 12Jxh2729; L ast Rx:93Hhn1910 15. Vitamin D (Ergocalciferol) 28915 UNIT Oral Capsule; TAKE 1 CAPSULE WEEKLY; T herapy: 83Lzg3410 to (Last Rx:59Bjk1519) Requested for: 11Odh4530 Allergies No Known Drug Allergies Vitals Signs [Data Includes: Last 1 Day] 06Mar2013 07:51AM BMI Calculated: 45.92 BSA Calculated: 2.29 Weight: 279 lb Systolic: 142, LUE, Sitting Diastolic: 86, LUE, Sitting BP Cuff Size: Large Temperature: 97.4 F Heart Rate: 72, R Radial Pulse Quality: Regular, R Radial Immunizations Influenza --- Series1: 21Nft5920 MMR --- Series1: Childhood Td/DT --- Series1: Approx 09Nov2002 Review of Systems Complete-Male ROS - [facility]: Constitutional, neck symptoms, cardiovascular and pulm onary review of systems are normal except as per HPI and unless noted below. Active Problems 1. Allergic Rhinitis 477.9 2. Anxiety (Symptom) 300.00 3. Aortic Aneurysm 441.9 4. Coronary Artery Disease 414.00 5. Current Every Day Smoker 305.1 APPROXIMATELY 1/2 PACK PER DAY 6. Dermatitis 692.9 7. Fatigue 780.79 8. Ganglion Of The Right Hand 727.42 9. Hyperlipidemia 272.4 10. Hypertension 401.9 11. Joint Pain, Localized In The Knee Bilateral 719.46 12. Obesity 278.00 13. Obstructive Sleep Apnea 327.23 14. Stasis Dermatitis 454.1 15. Transient Ischemic Attack 435.9 16. Type 2 Diabetes Mellitus 250.00 17. Vitamin D Deficiency 268.9 Social History Current Every Day Smoker 305.1 APPROXIMATELY 1/2 PACK PER DAY Marital History - V61.03 4 kids (3 boys, 1 girl). 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 Denied History of Alcohol Use Physical Exam General appearance: Abnormal. Patient appears obese, but well developed. Examination of the head and face: Normo cephalic, atraumatic. Examination of pupils and irises: Pupils equally round and reactive to light and accommodation; extraocular movements intact. Assessment of respiratory effort:. Normal. Auscultation of lungs:. Clear to auscultation bilaterally; no wheezing. Auscultation of heart:. Regular rate and rhythm, no murmur. Examination for edema/varicosities: Normal. Inspection of skin and subcutaneous tissue:. Grossly normal. Orientation to time, place, person: Normal. Results/Data EKG: showed low voltage in limb leads, but was sinus rhythm, rate of 68, no acu te changes. Assessment 1. Coronary Artery Disease 414.00 2. Current Every Day Smoker 305.1 APPROXIMATELY 1/2 PACK PER DAY Plan Patient was instructed to return to clinic as needed. Patient Instructions: Diet, Exercise and Weight loss encouraged . Supportive car e discussed. EKG done as requested, copy sent with patient and scanned to chart. F/u with PCP for ongoing chronic medical problems. Encouraged with his smoking cessation and weight loss goals. Signatures Electronically signed by : JAZZ FELIPE M.D.; Mar 06 2013 10:10AM (Author) * Jazz Felipe DO - 03/06/2013 8:00 AM CDT Clinical Summary Patient Name : GIACOMO TRAYLOR Appointment Date: 03/06/2013 8:00:00 AM : [id number] : [address] [place] [address] : Vitals Recorded Date/Time: 03/06/2013 7:51:00 AM BP Cuff Size: Large; Systolic: 142 mm Hg; Diastolic: 86 mm Hg; Temperature: 9 7.4 F; Heart Rate: 72 bpm; Pulse Quality: Regular; BMI Calculated: 45.92; BS A Calculated: 2.29; Weight: 279-0 lb Current Medications ALPRAZolam 1 MG Oral Tablet; TAKE 1 TABLET 3 TIMES DAILY NEEDED. MAY CAUSE DROWSINESS.; Days: 20; Qty: 60; Refill: 0 Atorvastatin Calcium 40 MG Oral Tablet; TAKE 1 TABLET DAILY AT BEDTIME.; Days: 90; Qty: 90; Refill: 1 Bystolic 5 MG Oral Tablet; TAKE 1 TABLET DAILY.; Days: 35; Qty: 35; Refill: 6 Bystolic 5 MG Oral Tablet; TAKE 1 TABLET DAILY.; Days: 28; Qty: 28; Refill: 0 Cetirizine HCl 10 MG Oral Tablet; TAKE 1 TABLET DAILY.; Days: 30; Qty: 30; Ref ill: 5 Fenofibrate 160 MG Oral Tablet; TAKE 1 TABLET DAILY.; Days: 30; Qty: 30; Refil l: 5 Fish Oil 1000 MG Oral Capsule; TAKE 1 CAPSULE DAILY.; Days: 30; Qty: 30; Refil l: 0 Fluticasone Propionate 50 MCG/ACT Nasal Suspension; USE 2 SPRAYS IN EACH NOSTR [place] ONCE DAILY; Days: 30; Qty: 1; Refill: 5 Hydrocodone-Acetaminophen 7.5-325 MG Oral Tablet; TAKE ONE TABLET EVERY 8 HOUR S NEEDED FOR PAIN; Days: 30; Qty: 90; Refill: 0 Ibuprofen 800 MG Oral Tablet; TAKE 1 TABLET 3 TIMES DAILY NEEDED.; Days: 30 ; Qty: 90; Refill: 5 Janumet XR 100-1000 MG Oral Tablet Extended Release 24 Hour; TAKE 1 TABLET [place]; Days: 28; Qty: 28; Refill: 0 MetFORMIN HCl ER 500 MG Oral Tablet Extended Release 24 Hour; TAKE 1 TABLET DA FUNMILAYO; Days: 30; Qty: 30; Refill: 5 TraMADol HCl 50 MG Oral Tablet; ; Days: 2; Qty: 30; Refill: 0 Triamcinolone Acetonide 0.5 % External Cream; APPLY SPARINGLY AND MASSAGE IN T WICE DAILY.; Days: 30; Qty: 15; Refill: 5 Vitamin D (Ergocalciferol) 63397 UNIT Oral Capsule; TAKE 1 CAPSULE WEEKLY.; Da ys: 0; Qty: 4; Refill: 3 Allergies No Known Drug Allergies Future Appointments 03/21/2013 2:00:00 PM,AIDAN UPTON Document and Provider Details Document: Clinical Summary Provider: DESTINEE Site: [facility] Site Address : [address] [place] [address] Site documented in this encounter Plan of Treatment Not on filedocumented as of this encounter Visit Diagnoses Not on filedocumented in this encounter
--- OUTSIDE RECORDS SUMMARY | 2019-08-27 21:00 | XMS REPORT | Encounter Summary ---
Author Author [facility] Organization [facility] Address Unknown Phone Unavailable Care Team Providers Care Preschool Substitute Teacher Name Role Phone Leanne Xiong PCP Unavailable Encounter Details Care Team Description Date Type Department Leanne Xiong MD 02/28/2013 Hist-Transcript [facility] Primar y Care ion Encounter - [address] [place], [place] [id number] Social History Date Tobacco Use Types Packs/Day Years Used Never Assessed Sex Assigned at Date Recorded Not on file Industry Job Start Date Occupation Not on file Not on file Not on file Travel End Travel History Travel Start No recent travel history available. documented as of this encounter Progress Notes * Leanne Xiong MD - 02/28/2013 12:25 PM CDT Date: 28 Feb 2013 1:20 PM USABILITY STRATEGIST, Recorded By: Tita Haji Calling For: LEANNE XIONG Caller: GIACOMO TRAYLOR, Solo (Home) Patient calls with questions and requests a call back. Attempted to call patient back, no answer. Left a message Electronically signed by:Tita Haji Feb 28 2013 1:21PM USABILITY STRATEGIST Author documented in this encounter Plan of Treatment Not on filedocumented as of this encounter Visit Diagnoses Not on filedocumented in this encounter
--- OUTSIDE RECORDS SUMMARY | 2019-08-27 21:00 | XMS REPORT | Encounter Summary ---
Author Author [facility] Organization [facility] Address Unknown Phone Unavailable Care Team Providers Care Perianesthesia Manager Name Role Phone Alexsandra Xiong PCP Unavailable Encounter Details Care Team Description Date Type Department 01/27/2013 Hist-Telephone [facility] Social History Date Tobacco Use Types Packs/Day Years Used Never Assessed Sex Assigned at Date Recorded Not on file Industry Job Start Date Occupation Not on file Not on file Not on file Travel End Travel History Travel Start No recent travel history available. documented as of this encounter Progress Notes * ProviderJohanna MD - 01/27/2013 11:03 AM CDT Recorded as Task Date: 01/24/2013 10:20 AM, Created By: Sarah Kidd Task Name: FYI Assigned To: Sarah Kidd Regarding Patient: GIACOMO TRAYLOR, Status: Active Comment: Sarah Kidd - 24 Jan 2013 10:20 AM TASK CREATED Caller: Self; ; Called and spoke with Alyssa at pharmacy to advise that patient was going to t carlos 2000 unit of Vitamin a Day. Discussed with patient, he verbalized understan ding. Patient stated that he has been feeling "weird" lately. Went over his medi cation with him and discovered he is not taking the medications that he should b e. I went over all of his medications with him and advised him that he had some new prescriptions sent to the pharmacy on the and that he needs to begin ta andrew them. Patient stated that he did not see the Primer Charging Tool Setter due to the f act that it was going to cost him $2000.00. Pt. also stated that he was having t rouble with the Bystolic and that it was too expensive. I referred patient to [facility] website and told him that if he was having issues with his medication he n eeded to make another appointment with Dr. Xiong. He asked if I would waive his co-pay and I advised him that I could not do that. Pt does not check blood suga rs and does not have a glucometer, nor does he monitor his blood pressure. The p rosy was traveling during this conversation, I kept losing connection with him , I did attempt to call him back several times. ALEXSANDRA XIONG - 24 Jan 2013 10:28 AM TASK EDITED he can check internet for bystolic coupons or could come get samples. please photocopying machine operator y to note Sarah Kidd - 27 Jan 2013 11:03 AM TASK EDITED Electronically signed by:Sarah Kidd Jan 27 2013 11:03AM MANAGER SIMULATION Author documented in this encounter Plan of Treatment Not on filedocumented as of this encounter Visit Diagnoses Not on filedocumented in this encounter
--- OUTSIDE RECORDS SUMMARY | 2019-08-27 21:00 | XMS REPORT | Encounter Summary ---
Author Author [facility] Organization [facility] Address Unknown Phone Unavailable Care Team Providers Care Mobile Qa Tester Name Role Phone Leanne Xiong PCP Unavailable Encounter Details Care Team Description Date Type Department [facility] Provider, MD Johanna 03/21/2013 [facility] C Result Social [...] Name Priority Date/Time Associated Diag nosis ECHO STRESS HISTORICAL Routine 03/21/2013 documented in this encounter Results * Echo Stress historical (03/21/2013) Specimen Narrative Performed At Procedure Category: ECHO NEXTGEN Procedure: Exercise Echocardiogram Procedure Summary: Non diagnostic study as patient was unable to achieve adequate level of exercise. Procedure Note Interface, Rad Conversion - 01/26/2015 2:46 PM CDT Procedure Category: ECHO Procedure: Exercise Echocardiogram Procedure Summary: Non diagnostic study as patient was unable to achieve adequate level of exercise. Performing Organization Address City/State/Zipcode Ph one Number NEXTGEN documented in this encounter Visit Diagnoses Not on filedocumented in this encounter
--- OUTSIDE RECORDS SUMMARY | 2019-08-27 21:00 | XMS REPORT | Encounter Summary ---
Author Author [facility] Organization [facility] Address Unknown Phone Unavailable Care Team Providers Care Harness Tier Name Role Phone Leanne Xiong PCP Unavailable Encounter Details Care Team Description Date Type Department ProviderJohanna MD [address] [place] [address] 01/17/2013 Hist-Transcript [facility] Family Medicine ion Encounter [address] [place] [address] Social History Date Tobacco Use Types Packs/Day Years Used Never Assessed Sex Assigned at Date Recorded Not on file Industry Job Start Date Occupation Not on file Not on file Not on file Travel End Travel History Travel Start No recent travel history available. documented as of this encounter Progress Notes * ProviderJohanna MD - 01/17/2013 11:30 AM CDT Date: 17 Jan 2013 9:25 AM SUBGRADE TESTER, Recorded By: Terrie Sharpe Calling For: MICHAEL GROSS Caller: GIACOMO TRAYLOR, Self (Home), This patient was transferred to [place] yesterday afternoon after being belligerant w ith the scheduling staff. He continued to be extremely loud and verbally aggress jose regarding the scheduling staff while he was talking to me. He states he did not cancel his scheduled appointment for today. He states he was scheduled for a n appointment, as well as a lab appointment. I could not locate a lab appointmen t that was previously made for this patient for today's date. The patient kept l oudly repeating that the scheduling staff owed him an apology. I read him the no te that was documented by triage when the appointment was cancelled. He again st ated that he never cancelled his appointment. After speaking with the practice mohamud elizabeth, the patient was scheduled for an 11:[address] Xiong for bahman brand. The patient was informed at 5:00 yesterday afternoon of this appointment. Electronically signed by:Terrie Sharpe Jan 17 2013 9:35AM SUBGRADE TESTER Author documented in this encounter Plan of Treatment Not on filedocumented as of this encounter Visit Diagnoses Not on filedocumented in this encounter
--- OUTSIDE RECORDS SUMMARY | 2019-08-27 21:00 | XMS REPORT | Encounter Summary ---
Author Author [facility] Organization [facility] Address Unknown Phone Unavailable Care Team Providers Care Certification Technician Name Role Phone Leanne Xiong PCP Unavailable Encounter Details Care Team Description Date Type Department 01/24/2013 Hist-Telephone [facility] Social History Date Tobacco Use Types Packs/Day Years Used Never Assessed Sex Assigned at Date Recorded Not on file Industry Job Start Date Occupation Not on file Not on file Not on file Travel End Travel History Travel Start No recent travel history available. documented as of this encounter Progress Notes * Provider, MD Johanna - 01/24/2013 8:49 AM CDT Recorded as Task Date: 01/24/2013 08:50 AM, Created By: Sarah Kidd Task Name: Pt Medication Request Assigned To: Sarah Kidd Regarding Patient: GIACOMO TRAYLOR, Status: Active Comment: Sarah Kidd - 24 Jan 2013 8:50 AM TASK CREATED Caller: [facility] calls and states that Dialyvite D 3 not available. They are asking for an alternative? LEANNE XIONG - 24 Jan 2013 9:51 AM TASK EDITED He can take vitamin D 2,000 units daily over the counter or vitamin D 50,000 uni ts once a month, which ever he prefers Sraah Kidd - 24 Jan 2013 9:56 AM TASK EDITED Called pharmacy and advised. Electronically signed by:Sarah Kidd Jan 24 2013 9:56AM ANALYSIS DIRECTOR Author documented in this encounter Plan of Treatment Not on filedocumented as of this encounter Visit Diagnoses Not on filedocumented in this encounter
--- OUTSIDE RECORDS SUMMARY | 2019-08-27 21:00 | XMS REPORT | Encounter Summary ---
Author Author [facility] Organization [facility] Address Unknown Phone Unavailable Care Team Providers Care Fine Arts Model Name Role Phone Leanne Xiong PCP Unavailable Encounter Details Care Team Description Date Type Department Leanne Xiong MD 02/03/2013 Hist-Other [facility] Social History [...]
--- OUTSIDE RECORDS SUMMARY | 2019-08-27 21:00 | XMS REPORT | Encounter Summary ---
Author Author [facility] Organization [facility] Address Unknown Phone Unavailable Care Team Providers Care Electron Microscopist Name Role Phone Leanne Xiong PCP Unavailable Encounter Details Care Team Description Date Type Department Leanne Xiong MD 01/19/2013 [facility] Note [facility] Primar y Care - [address] [facility] [address] [place], [place] [id number] Social History Date Tobacco Use Types Packs/Day Years Used Never Assessed Sex Assigned at Date Recorded Not on file Industry Job Start Date Occupation Not on file Not on file Not on file Travel End Travel History Travel Start No recent travel history available. documented as of this encounter Miscellaneous Notes * Miscellaneous - Leanne Xiong MD - 01/19/2013 7:34 AM CDT Verified Results Collected/Examined: Jan 17, 2013 12:21PM Test Result Flag Acceptable Vitamin D 25-Hydroxy 24 ng/mL Vitamin D 25-Hydroxy:^^ Severe deficiency < 13 ng/mL^^ Mild to moderate deficiency 13 - 24 ng/mL^^ Optimum level 25 - 80 ng/mL^^ Toxicity possible >80 ng/mL^^ Signatures Electronically signed by : LEANNE XIONG M.D.; Jan 19 2013 7:35AM (Author) * Miscellaneous - Leanne Xiong MD - 01/19/2013 7:34 AM CDT Verified Results Collected/Examined: Jan 17, 2013 12:21PM Test Result Flag Acceptable Vitamin D, 25-Hydroxy [Jan 19, 2013 7:34AM LEANNE XIONG] vitamin d is improved and near lower limit of normal. advise to take vitamin d 2 ,000 units daily and recheck in 3 months Vitamin D 25-Hydroxy 24 ng/mL Vitamin D 25-Hydroxy:^^ Severe deficiency < 13 ng/mL^^ Mild to moderate deficiency 13 - 24 ng/mL^^ Optimum level 25 - 80 ng/mL^^ Toxicity possible >80 ng/mL^^ Signatures Electronically signed by : LEANNE XIONG M.D.; Jan 19 2013 7:35AM (Author) documented in this encounter Plan of Treatment Not on filedocumented as of this encounter Visit Diagnoses Not on filedocumented in this encounter
--- OUTSIDE RECORDS SUMMARY | 2019-08-27 21:00 | XMS REPORT | Encounter Summary ---
Author Author [facility] Organization [facility] Address Unknown Phone Unavailable Care Team Providers Care Relocation Commissioner Name Role Phone Leanne Xiong PCP Unavailable Encounter Details Care Team Description Date Type Department 06/04/2013 Hist-Telephone [facility] Social History Date Tobacco Use Types Packs/Day Years Used Never Assessed Sex Assigned at Date Recorded Not on file Industry Job Start Date Occupation Not on file Not on file Not on file Travel End Travel History Travel Start No recent travel history available. documented as of this encounter Progress Notes * ProviderJohanna MD - 06/04/2013 5:04 PM OIL FIELD PUMPER Recorded as Task Date: 05/22/2013 12:14 PM, [...] phone. kb Electronically signed by:MICHAEL GROSS Jun 04 2013 5:04PM OIL FIELD PUMPER Author documented in this encounter Plan of Treatment Not on filedocumented as of this encounter Visit Diagnoses Not on filedocumented in this encounter
--- OUTSIDE RECORDS SUMMARY | 2019-08-27 21:00 | XMS REPORT | Encounter Summary ---
Author Author [facility] Organization [facility] Address Unknown Phone Unavailable Care Team Providers Care Traffic Reporter Name Role Phone Leanne Xiong PCP Unavailable Encounter Details Care Team Description Date Type Department Abisai Casas MD no forwarding address 03/06/2013 [facility] [...]
--- OUTSIDE RECORDS SUMMARY | 2019-08-27 21:00 | XMS REPORT | Encounter Summary ---
Author Author [facility] Organization [facility] Address Unknown Phone Unavailable Care Team Providers Care Java Core Developer Name Role Phone Leanne Xiong PCP Unavailable Encounter Details Care Team Description Date Type Department Leanne Xiong MD 01/20/2013 Hist-Other [facility] Social History [...]
--- OUTSIDE RECORDS SUMMARY | 2019-08-27 21:00 | XMS REPORT | Encounter Summary ---
Author Author [facility] Organization [facility] Address Unknown Phone Unavailable Care Team Providers Care Surveyor Instrument Assistant Name Role Phone PCP Unavailable Encounter Details Care Team Description Date Type Department Leanne Xiong MD 03/25/2013 [facility] [address] [place] [address] Social History Date Tobacco Use Types Packs/Day [...]
--- OUTSIDE RECORDS SUMMARY | 2019-08-27 21:00 | XMS REPORT | Encounter Summary ---
Author Author [facility] Organization [facility] Address Unknown Phone Unavailable Care Team Providers Care Tree Girdler Name Role Phone Leanne Xiong PCP Unavailable Encounter Details Care Team Description Date Type Department Leanne Xiong MD 03/24/2013 Allscripts Note [facility] Primar y Care - [address] [place], [place] [id number] Social History Date Tobacco Use Types Packs/Day Years Used Never Assessed Sex Assigned at Date Recorded Not on file Industry Job Start Date Occupation Not on file Not on file Not on file Travel End Travel History Travel Start No recent travel history available. documented as of this encounter Miscellaneous Notes * Miscellaneous - Leanne Xiong MD - 03/24/2013 6:00 AM CDT Verified Results Collected/Examined: Mar 21, 2013 12:29PM Test Result Flag Acceptable Lipid Profile Hours Post Prandial 12 Cholesterol Lipid Prof 134 mg/dL 100-200 Triglycerides 379 mg/dL H 0-150 Hdl 18 mg/dL L 40-110 Ldl Cholesterol 40 mg/dL 0-99 Total Cholesterol/Hdl Ratio 7.4 H 0.0-4.5 Non- HDL Cholesterol 116 mg/dL 0-130 Liver Function Panel Albumin 4.0 g/dL 3.5-5.0 Bilirubin, Direct 0.0 mg/dL 0.0-0.4 Bilirubin Total 1.1 mg/dL 0.2-1.3 Alkaline Phosphatase 73 IU/L 42-140 Alanine Aminotransferase 50 IU/L 13-69 Aspartate Aminotransferase 32 IU/L 15-46 Protein Total Serum 7.1 g/dL 6.0-8.2 Discussion/Summary ldl is improved, triglycerides and hdl are worse. advise to stop fish oil and t ry vascepa instead. recheck lipid and liver in 6 weeks * Miscellaneous - Leanne Xiong MD - 03/24/2013 6:00 AM CDT Verified Results Collected/Examined: Mar 21, 2013 12:29PM Test Result Flag Acceptable Lipid Profile [Mar 24, 2013 6:00AM LEANNE XIONG] ldl is improved, triglycerides and hdl are worse. advise to stop fish oil and tr y vascepa instead. recheck lipid and liver in 6 weeks Hours Post Prandial 12 Cholesterol Lipid Prof 134 mg/dL 100-200 Triglycerides 379 mg/dL H 0-150 Hdl 18 mg/dL L 40-110 Ldl Cholesterol 40 mg/dL 0-99 Total Cholesterol/Hdl Ratio 7.4 H 0.0-4.5 Non- HDL Cholesterol 116 mg/dL 0-130 Liver Function Panel [Mar 24, 2013 6:00AM LEANNE XIONG] ldl is improved, triglycerides and hdl are worse. advise to stop fish oil and tr y vascepa instead. recheck lipid and liver in 6 weeks Albumin 4.0 g/dL 3.5-5.0 Bilirubin, Direct 0.0 mg/dL 0.0-0.4 Bilirubin Total 1.1 mg/dL 0.2-1.3 Alkaline Phosphatase 73 IU/L 42-140 Alanine Aminotransferase 50 IU/L 13-69 Aspartate Aminotransferase 32 IU/L 15-46 Protein Total Serum 7.1 g/dL 6.0-8.2 Discussion/Summary ldl is improved, triglycerides and hdl are worse. advise to stop fish oil and t ry vascepa instead. recheck lipid and liver in 6 weeks documented in this encounter Plan of Treatment Not on filedocumented as of this encounter Visit Diagnoses Not on filedocumented in this encounter
--- OUTSIDE RECORDS SUMMARY | 2019-08-27 21:00 | XMS REPORT | Encounter Summary ---
Author Author [facility] Organization [facility] Address Unknown Phone Unavailable Care Team Providers Care Distribution Transformer Assembler Name Role Phone Leanne Xiong PCP Unavailable Encounter Details Care Team Description Date Type Department ProviderJohanna MD [address] [place] [address] 03/25/2013 Hist-Transcript [facility] ion Encounter [address] [place] [address] Social History Date Tobacco Use Types Packs/Day Years Used Never Assessed Sex Assigned at Date Recorded Not on file Industry Job Start Date Occupation Not on file Not on file Not on file Travel End Travel History Travel Start No recent travel history available. documented as of this encounter Progress Notes * ProviderJohanna MD - 03/25/2013 10:20 AM CDT Date: 25 Mar 2013 10:20 AM COMPUTATIONAL GENETICIST, Recorded By: Sarah Kidd Caller: GIACOMO TRAYLOR, Self (Home), Patient comes to clinic and states that the rooming nurse told him the last time he was here that she would give him a Glucometer. He states that he can't afford to buy one. I spoke with Sydnee Perez who did not recall telling him that. Spoke with Dr. Xiong who gave me verbal permission to give patient a Freestyle InsuLink glucometer. Electronically signed by:Sarah Kidd Mar 25 2013 10:36AM COMPUTATIONAL GENETICIST Author documented in this encounter Plan of Treatment Not on filedocumented as of this encounter Visit Diagnoses Not on filedocumented in this encounter
--- OUTSIDE RECORDS SUMMARY | 2019-08-27 21:00 | XMS REPORT | Encounter Summary ---
Author Author [facility] Organization [facility] Address Unknown Phone Unavailable Care Team Providers Care Steam Bone Press Tender Name Role Phone PCP Unavailable Encounter Details Care Team Description Date Type Department Jazz Velazquez DO [address] [facility] [address] [place], [place] [id number] Coronary atherosclerosis of [place] coron marie artery 03/21/2013 [facility] [address] [place] [address] Social History Date Tobacco Use Types Packs/Day [...] Name Priority Date/Time Associated Diag nosis ECHO EXERCISE Routine 03/21/2013 10:54 AM CDT documented in this encounter Results * ECHO EXERCISE (03/21/2013 10:54 AM CDT) Specimen Narrative Performed At [facility] RAD Exercise Echocardiogram Report [facility] Name: GIACOMO RAMIREZ Date: 03/21/2013 10:54 Chart #: [id number] : 1965 Location: [facility] Sono: marcelle Age: 47 Gender: M Referring: Jazz Velazquez Room #: op Ht: 67 Wt: 274 BSA 2. 4 Contrast: Definity Indication - Hypertension, Hypercholest erolemia,DOT physical Treadmill Stress Dura tion of exercise -5:50 METS - 7.2 Double Product 02577 Protocol Resting heart rate - 55 Peak HR - 100 57.5 % max p red Protocol: Tai 6 mins Resting BP - 138 / 82 Peak BP - 160 /78 HR 1 min/post mibl681/6 bpm Symptoms - Pt jumped off treadmill du e to knee pain. EKG Resting EKG - NSR Exercise EKG-No abnormal ST/T wave changes with exercise Arrhythmia - None ECHO LV diast 5.4 cm (4.0-5.4 cm) IVS 0.7 cm (<=1.1 cm) LA 4.1 cm (<=3.8 cm) LV syst 3.9 cm (3.2-4.0 cm) Post 1.0 cm (<=1.1 cm) WALL SEGMENT ANALYSIS: ROUTINE LVSI : 1 %FM : 100 LAD : 1 LCX : 1 RCA : 1 Summary: Pt stopped on treadmill for knee pain. Pt took Bystolic before procedure but thought that he didn't take it. Unable to achieve heart rate. CONCLUSIONS: Non diagnostic study as patient was lucia ble to achieve adequate level of exercise. Cecil Hameed M.D. (Electronically Signed) Final Date: 21 March 2013 17:25 Procedure Note Interface, Rad Conversion - 09/16/2013 10:31 AM CDT RESULT Exercise Echocardiogram Report [facility] Name: GIACOMO RAMIREZ Date: 03/21/2013 10:54 Chart #: [id number] : 1965 Location: [facility] Didier: marcelle Age: 47 Gender: M Referring: Jazz Velazquez Room #: op Ht: 67 Wt: 274 BSA 2.4 Contrast: Definity Indication - Hypertension, Hypercholesterolemia,DOT physical Treadmill Stress Duration of exercise -5:50 METS - 7.2 Double Product 64846 Protocol Resting heart rate - 55 Peak HR - 100 57.5 % max pred Protocol: Tai 6 mins Resting BP - 138 / 82 Peak BP - 160 /78 HR 1 min/post kfni319/6 bpm Symptoms - Pt jumped off treadmill due to knee pain. EKG Resting EKG - NSR Exercise EKG-No abnormal ST/T wave changes with exercise Arrhythmia - None ECHO LV diast 5.4 cm (4.0-5.4 cm) IVS 0.7 cm (<=1.1 cm) LA 4.1 cm (<=3.8 cm) LV syst 3.9 cm (3.2-4.0 cm) Post 1.0 cm (<=1.1 cm) WALL SEGMENT ANALYSIS: ROUTINE LVSI : 1 %FM : 100 LAD : 1 LCX : 1 RCA : 1 Summary: Pt stopped on treadmill for knee pain. Pt took Bystolic before procedure but thought that he didn't take it. Unable to achieve heart rate. CONCLUSIONS: Non diagnostic study as patient was unable to achieve adequate level of exercise. Cecil Hameed M.D. (Electronically Signed) Final Date: 21 March 2013 17:25 Performing Organization Address City/State/Zipcode Ph one Number [facility] [address] [facility] [address] documented in this encounter Visit Diagnoses Diagnosis Coronary atherosclerosis of [place] nadira nary artery documented in this encounter
--- OUTSIDE RECORDS SUMMARY | 2019-08-27 21:00 | XMS REPORT | Encounter Summary ---
Author Author [facility] Organization [facility] Address Unknown Phone Unavailable Care Team Providers Care Drop Press Hand Name Role Phone Leanne Xiong PCP Unavailable Encounter Details Care Team Description Date Type Department Leanne Xiong MD 03/21/2013 [facility] t Social [...] Signs Reading Time Taken Comments Vital Sign 122/92 03/21/2013 2:07 PM CDT Blood Pressure 78 03/21/2013 2:07 PM CDT Pulse 36.8 C (98.2 F) 03/21/2013 2:07 PM CDT Temperature - - Respiratory Rate - - Oxygen Saturation - - Inhaled Oxygen Concentration 128.1 kg (282 lb 6.4 oz) 03/21/2013 2:07 PM CDT Weight - - Height 46.28 09/17/2012 2:04 PM CDT Body Mass Index documented in this encounter Progress Notes * Leanne Xiong MD - 03/21/2013 2:00 PM CDT Has the patient self-referred since the previous visit? NO If yes, whom has the patient self referred to? Electronically signed by:Sydnee Layton Mar 21 2013 2:08PM MEAT STUFFER Author * Leanne Xiong MD - 03/21/2013 2:00 PM CDT Chief Complaint Chief Complaint: The patient presents to the office today with FOLLOW UP. History of Present Illness Free Text HPI: He had a stress test today. He was called last week and asked abo ut his meds. He was not told to stop his bystolic. He could not get his HR to ge t over 120. He had knee pain with running on the treadmill. He has had a MRi and does plan to get in to see ortho. He was told that he will need to have a nucle ar stress test scheduled for next week. He has cut down to 2 cigarettes daily. H randal can feel shaky and dizzy after he smokes. He does feel sick if he does not smo ke. He does not smoke the whole cigarette, he only takes a few puffs. He checks his BP at home and it is mostly 122/80s. He has not met his deductable and can n ot get in to see the lead pastor. He is interested in finding a diabetic diet. He feels like he has to do it all on his own. Hypertension-SLMG: The patient is being seen for a routine clinic follow-up of tania subramanian hypertension. Symptoms:. The patient is currently asymptomatic. Associated symptoms: . No associated sypmtoms. Disease Management: patient is a smoker . Actively working on quitting smoking. Current treatment includes beta blockers. The patient reports no side effects from treatment. By report, there is good compliance with treatment, good tolerance of treatment and good symptom control. Hyperlipidemia-SLMG: The patient is being seen for a routine clinic follow-up of hyperlipidemia. The most recent labs for this patient were done on 03/21. Current treatment includes statins. By report, there is good compliance with treatment, good tolerance of t reatment and good symptom control. Current Meds 1. ALPRAZolam 1 MG Oral Tablet; TAKE 1 TABLET 3 TIMES DAILY NEEDED. MAY CAUSE DROWSINESS; Therapy: 15Qcx2055 to (Evaluate:24Tqk8597) Requested for: 3; Last Rx:30Dec2012 2. Atorvastatin Calcium 40 MG Oral Tablet; TAKE 1 TABLET DAILY AT BEDTIME; Thera py: 09Apr2012 to (Evaluate:19Jul2013) Requested for: 84Khm0327; Last Rx:[id number] 3. Bystolic 5 MG Oral Tablet; TAKE 1 TABLET DAILY; Therapy: 50Zfi6637 to (Evalua te:12Sep2013); Last Rx:[id number] 4. Bystolic 5 MG Oral Tablet; TAKE 1 TABLET DAILY; Therapy: 91Ogq0712 to (Evalua te:11Iox3313) Requested for: 69Lqk3235; Last Rx:29Fqp0080 5. Cetirizine HCl 10 MG Oral Tablet; TAKE 1 TABLET DAILY; Therapy: 64Ksg7749 to (Evaluate:99Yyi1115) Requested for: 17Sep2012; Last Rx:17Sep2012 6. Fenofibrate 160 MG Oral Tablet; TAKE 1 TABLET DAILY; Therapy: 65Iio1927 to (Evaluate:51Vdu3356) Requested for: 17Sep2012; Last Rx:17Sep2012 7. Fish Oil 1000 MG Oral Capsule; TAKE 1 CAPSULE DAILY; Therapy: 91Bpg0149 to (Evaluate:83Iib5205) 8. Hydrocodone-Acetaminophen 7.5-325 MG Oral Tablet; TAKE ONE TABLET EVERY 8 RIGOBERTO RS NEEDED FOR PAIN; Therapy: 67Sse1407 to (Evaluate:96Cfk4802) Requested for: hx3317; Last Rx:48Vjr7605 9. Ibuprofen 800 MG Oral Tablet; TAKE 1 TABLET 3 TIMES DAILY NEEDED; Therapy: 15Nme3556 to (Evaluate:93Myc0027) Requested for: 17Sep2012; Last Rx:17Sep2012 10. Janumet XR 100-1000 MG Oral Tablet Extended Release 24 Hour; TAKE 1 TABLET D AILY; Therapy: 66Cbj1808 to (Evaluate:44Yzi8992) Requested for: 93Vul7257; Last Rx: 65Hii4479 11. MetFORMIN HCl ER 500 MG Oral Tablet Extended Release 24 Hour; TAKE 1 TABLET DAILY; Therapy: 70Noc0386 to (Evaluate:96Blz6154) Requested for: 65Ohr5685; Last Rx: 05Hzt4884 12. TraMADol HCl 50 MG Oral Tablet; Therapy: 27Ldp8432 to 13. Triamcinolone Acetonide 0.5 % External Cream; APPLY SPARINGLY AND MASSAGE IN TWICE DAILY; Therapy: 61Doo4755 to (Evaluate:57Jhd5736) Requested for: 43Eym6910; L ast Rx:44Xob6600 14. Vitamin D (Ergocalciferol) 19198 UNIT Oral Capsule; TAKE 1 CAPSULE WEEKLY; T herapy: 78Hws6494 to (Last Rx:38Spw7776) Requested for: 91Dxu6848 Allergies No Known Drug Allergies Vitals Signs [Data Includes: Last 1 Day] 21Mar2013 02:07PM BMI Calculated: 46.49 BSA Calculated: 2.3 Weight: 282 lb 6.4 oz Systolic: 122, LUE, Sitting Diastolic: 92, LUE, Sitting Temperature: 98.2 F, Oral Heart Rate: 78, L Radial Pulse Quality: Regular, L Radial Immunizations Influenza --- Series1: 81Kne8051 MMR --- Series1: Childhood Td/DT --- Series1: Approx 46Otq6877 Review of Systems Complete-Male ROS - SLMG: Constitutional and skin review of systems are normal e xcept as per HPI and unless noted below. Musculoskeletal: knee problems and knee pain. Active Problems 1. Allergic Rhinitis 477.9 2. [...] Mellitus 250.00 17. Vitamin D Deficiency 268.9 Past Medical History 1. History of Cath Stent Placement Surgical History 1. History of Inguinal Hernia Repair Family History 1. Maternal history of Acute Myocardial Infarction V17.3 2. Sororal history of Heart Disease V17.49 3. Paternal history of Hepatitis 4. Sororal history of Hyperlipidemia 5. Sororal history of Hypertension V17.49 6. Maternal history of Stroke Syndrome V17.1 Social History Current Every Day Smoker 305.1 APPROXIMATELY 1/2 PACK PER DAY Marital History - V61.03 4 kids (3 boys, 1 girl). 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 Denied History of Alcohol Use Physical Exam General appearance: Alert and oriented x 3, healthy appearing, in no acute distr ess. Examination of the head and face: Normo cephalic, atraumatic. Inspection of conjunctiva and lids: Normal. Examination of pupils and irises: Pupils equally round and reactive to light and accommodation; extraocular movements intact. External inspection of ears and nose: Ear canal normal. Assessment of hearing: Normal. Examination of nasal mucosa, septum, turbinates: Turbinates normal, no rhinorrhe a or septal deviation. Examination of oropharynx: No erythema, exudate, or drainage of the oropharynx. Assessment of respiratory effort:. Normal. Auscultation of lungs:. Clear to auscultation bilaterally; no wheezing. Auscultation of heart:. Regular rate and rhythm, no murmur. Pedal pulses: WNL. Examination of gait and station:. Normal gait; no muscle weakness. Examination of digits and nails:. Normal. Inspection of skin and subcutaneous tissue: No rash, lesions, or ulcers. Mood and affect:. Normal mood and affect. Assessment 1. Hyperlipidemia 272.4 2. Hypertension 401.9 3. Coronary Artery Disease 414.00 Plan Hypertension (401.9) 1. Bystolic 5 MG Oral Tablet; TAKE 1 TABLET DAILY; Therapy: 14Lxc1425 to (Evalua te:11Jul2013); Last Rx:[id number]; Status: UNAUTHORIZED - Requires Signature Ordered; For: Hypertension (401.9); Rx By: LEANNE XIONG; Dispense: 28 Days ; # :28 Tablet; Refill: 3; BIBIANA; Sent To: [facility]; Last Updated By: Sydnee Layton Unlinked 2. Janumet XR 100-1000 MG Oral Tablet Extended Release 24 Hour; TAKE 1 TABLET DA FUNMILAYO; Therapy: 69Hda6384 to (Evaluate:18Apr2013) Requested for: 41Ted4747; Last Rx:1 [id number]; Status: UNAUTHORIZED - Requires Signature Ordered; Rx By: LEANNE XIONG; Dispense: 28 Days ; #:28 Tablet Extended Release 24 Hour; Refill: 0; Dispense Sample; Last Updated By: Sydnee Layton reviewed labs from last visit BP is stable on meds information given for diabetic diet discussed he can schedule with damon lead pastor check lipid and liver continue current medication for now follow up in 6 weeks to recheck diabetic labs discussed diet and exercise and weight loss order for nuclear stress test sent to cardiology. praised smoking cessation efforts Patient was instructed to return to clinic as needed and in 6 week(s). Patient Instructions: Diet, continue/start medications as outlined, Exercise and Weight loss encouraged. Proper use and side effects of medications were reviewed with the patient. The patient's questions were answered and he expressed under standing. Signatures Electronically signed by : LEANNE XIONG M.D.; Mar 21 2013 3:14PM (Author) * Leanne Xiong MD - 03/21/2013 2:00 PM CDT Clinical Summary Patient Name : GIACOMO TRAYLOR Appointment Date: 03/21/2013 2:00:00 PM : [id number] : [address] Of 1965 [place] [address] : Assessed Problems Hyperlipidemia Hypertension Treatment Plan Patient was instructed to return to clinic as needed and in 6 week(s). Patient Instructions: Diet, continue/start medications as outlined, Exercise and Weight loss encouraged. Proper use and side effects of medications were review ed with the patient. The patient's questions were answered and he expressed unde rstanding. Vitals Recorded Date/Time: 03/21/2013 2:07:00 PM Systolic: 122 mm Hg; Diastolic: 92 mm Hg; Temperature: 98.2 F; Heart Rate: 78 bpm; Pulse Quality: Regular; BMI Calculated: 46.49; BSA Calculated: 2.3; We ight: 282.4-0 lb Current Medications ALPRAZolam 1 MG Oral Tablet; TAKE 1 TABLET 3 TIMES DAILY NEEDED. MAY CAUSE DROWSINESS.; Days: 20; Qty: 60; Refill: 0 Atorvastatin Calcium 40 MG Oral Tablet; TAKE 1 TABLET DAILY AT BEDTIME.; Days: 90; Qty: 90; Refill: 1 Bystolic 5 MG Oral Tablet; TAKE 1 TABLET DAILY.; Days: 35; Qty: 35; Refill: 6 Cetirizine HCl 10 MG Oral Tablet; TAKE 1 TABLET DAILY.; Days: 30; Qty: 30; Ref ill: 5 Fenofibrate 160 MG Oral Tablet; TAKE 1 TABLET DAILY.; Days: 30; Qty: 30; Refil l: 5 Fish Oil 1000 MG Oral Capsule; TAKE 1 CAPSULE DAILY.; Days: 30; Qty: 30; Refil l: 0 Hydrocodone-Acetaminophen 7.5-325 MG Oral Tablet; TAKE ONE TABLET EVERY 8 HOUR S NEEDED FOR PAIN; Days: 30; Qty: 90; Refill: 0 Ibuprofen 800 MG Oral Tablet; TAKE 1 TABLET 3 TIMES DAILY NEEDED.; Days: 30 ; Qty: 90; Refill: 5 MetFORMIN HCl ER 500 MG Oral Tablet Extended Release 24 Hour; TAKE 1 TABLET DA FUNMILAYO; Days: 30; Qty: 30; Refill: 5 TraMADol HCl 50 MG Oral Tablet; ; Days: 2; Qty: 30; Refill: 0 Triamcinolone Acetonide 0.5 % External Cream; APPLY SPARINGLY AND MASSAGE IN T WICE DAILY.; Days: 30; Qty: 15; Refill: 5 Vitamin D (Ergocalciferol) 97388 UNIT Oral Capsule; TAKE 1 CAPSULE WEEKLY.; Da ys: 0; Qty: 4; Refill: 3 Allergies No Known Drug Allergies Future Appointments 05/02/2013 1:00:00 PM,AIDAN UPTON Document and Provider Details Document: Clinical Summary Provider: AIDAN Site: [facility] Site Address : [address] [place] [address] Site documented in this encounter Plan of Treatment Not on filedocumented as of this encounter Visit Diagnoses Not on filedocumented in this encounter
--- OUTSIDE RECORDS SUMMARY | 2019-08-27 21:01 | XMS REPORT | Encounter Summary ---
Author Author [facility] Organization [facility] Address Unknown Phone Unavailable Care Team Providers Care Geodesy Teacher Name Role Phone PCP Unavailable Encounter Details Care Team Description Date Type Department Palomo Bowling MD [address] [place] [address] [phone] 07/08/2012 [facility] - Encounter 08/08/2012 Social History Date Tobacco Use Types Packs/Day [...] every 6 hours as needed for pain 12/30/2012 02/10/2015 ALPRAZolam (XANAX) 1 MG TAKE 1 TABLET 60 0 tablet 3 TIMES DAILY NEEDED. MAY CAUSE DROWSINESS. 04/16/2013 02/10/2015 atorvastatin (LIPITOR) 40 TAKE 1 TABLET 90 0 MG tablet DAILY AT BEDTIME. 06/16/2011 02/10/2015 carvedilol (COREG) 6.25 take 1 [...] route 3 times every day with food 09/17/2012 02/10/2015 [facility] TAKE 1 TABLET 90 0 3 TIMES DAILY NEEDED. 02/28/2013 02/10/2015 metFORMIN (GLUCOPHAGE-XR) TAKE 1 TABLET [...] cream SPARINGLY AND MASSAGE IN TWICE DAILY. documented as of this encounter Plan of Treatment Not on filedocumented as of this encounter Visit Diagnoses Not on filedocumented in this encounter
--- OUTSIDE RECORDS SUMMARY | 2019-08-27 21:01 | XMS REPORT | Encounter Summary ---
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 Name Role Phone Alexsandra Xiong PCP Unavailable Encounter Details Care Team Description Date Type Department Alexsandra Xiong MD 01/17/2013 Hist-Appointmen [facility] t Social [...] Signs Reading Time Taken Comments Vital Sign 140/94 01/17/2013 11:36 AM CDT Blood Pressure 80 01/17/2013 11:36 AM CDT Pulse 36.3 C (97.4 F) 01/17/2013 11:36 AM CDT Temperature - - Respiratory Rate - - Oxygen Saturation - - Inhaled Oxygen Concentration 129.9 kg (286 lb 6.4 oz) 01/17/2013 11:36 AM CDT Weight - - Height 46.93 09/17/2012 2:04 PM CDT Body Mass Index documented in this encounter Progress Notes * Alexsandra Xiong MD - 01/17/2013 11:30 AM CDT Has the patient self-referred since the previous visit? no If yes, whom has the patient self referred to? Electronically signed by:Sydnee Layton Jan 17 2013 11:39AM PATIENT FLOW COORDINATOR Author * Alexsandra Xiong MD - 01/17/2013 11:30 AM CDT Chief Complaint Chief Complaint: The patient presents to the office today with follow up. History of Present Illness Free Text HPI: He was seen by a GIS SCIENTIST at the [facility]. She gave him a cream th at is not helping. He is interested in having his veins checked. He has knee chiquis n. He had an MRI. He did see ortho who advised cortisone. He saw another ortho w ho said his patella is damaged and he advised surgery. He has calf and thigh chiquis n with walking that makes him stop after just a block or so. He is still smoking . He is working on cutting down on smoking. He is eating sugar free certs instea d. Hypertension-SLMG: The patient is being seen for a routine clinic follow-up of b enign hypertension. Symptoms:. The patient is currently asymptomatic. Associated symptoms: . No associated sypmtoms. Disease Management: a fasting lipid profile has been done in the last year and roberto gallegos is a smoker. Current treatment includes beta blockers. The patient reports no side effects from treatment. By report, there is good compliance with treatment, good tolerance of treatment and good symptom control. Hyperlipidemia-SL[facility]: The patient is being seen for a routine clinic follow-up of hyperlipidemia. The most recent labs for this patient were done on 09/18. His LDL is decreasing and H DL is decreasing. The patient is due for a lipid panel and liver function tests. Current treatment includes statins and fibric acid derivatives. By report, there is good compliance with treatment, good tolerance of treatment and good symptom control. Diabetes-[facility]: The patient's visit is for a routine clinic follow-up of type 2 diabetes mellitu s. Symptoms: fatigue, but no weight loss. The patient is due for a hemoglobin A1C, a lipid panel and a urine microalbumin. Current treatment includes: metformin HCl and Januvia. Current treatment also in cludes regular exercise and diabetic diet. By report, there is good compliance w ith treatment, good tolerance of treatment and good symptom control. Vitamin D Deficiency: The patient is being seen for follow-up of vitamin D defic iency. Disease type: vitamin D deficiency. Recent laboratory results: date 09/18. Current treatment includes dietary vitamin D and vitamin D3 (cholecalciferol). Symptoms: fatigue. The patient is currently experiencing symptoms. Fatigue: The patient is being seen for an initial evaluation of fatigue. Symptom s: no generalized weakness The patient presents with complaints of fatigue (He tried stopping his meds one day at a time. He thinks he felt better when he did not take coreg). The patient is currently experiencing symptoms. The patient presents with complaints of no poor sleep (he sleeps 12 hours a day. He uses his Cpap regularly. ). Current Meds 1. ALPRAZolam 1 MG Oral Tablet; TAKE 1 TABLET 3 TIMES DAILY NEEDED. MAY CAUSE DROWSINESS; Therapy: 10Nov2011 to (Evaluate:[id number]) Requested for: 3; Last Rx:30Dec2012 2. Atorvastatin Calcium 20 MG Oral Tablet; TAKE 1 TABLET DAILY AT BEDTIME; Thera py: 09Apr2012 to (Evaluate:59Kww3789) Requested for: 17Sep2012; Last Rx:17Sep2012 3. Carvedilol 12.5 MG Oral Tablet; TAKE 1 TABLET TWICE DAILY WITH MEALS; Therapy : 24Dec2011 to (Evaluate:42Syr5008) Requested for: 04Oct2012; Last Rx:04Oct2012 4. Cetirizine HCl 10 MG Oral Tablet; TAKE 1 TABLET DAILY; Therapy: 86Dgc4985 to (Evaluate:13Nam4789) Requested for: 17Sep2012; Last Rx:17Sep2012 5. Fenofibrate 160 MG Oral Tablet; TAKE 1 TABLET DAILY; Therapy: 71Bwg4427 to (Evaluate:63Ati3676) Requested for: 17Sep2012; Last Rx:17Sep2012 6. Fish Oil 1000 MG Oral Capsule; TAKE 1 CAPSULE DAILY; Therapy: 07Oct2012 to (Evaluate:40Azt2472) 7. Fluticasone Propionate 50 MCG/ACT Nasal Suspension; USE 2 SPRAYS IN EACH NOST RIL ONCE DAILY; Therapy: 82Eux9876 to (Complete:18Xsi6674) Requested for: 3; Last Rx:17Sep2012 8. Hydrocodone-Acetaminophen 7.5-325 MG Oral Tablet; TAKE ONE TABLET EVERY 8 RIGOBERTO RS NEEDED FOR PAIN; Therapy: 17Dot1310 to (Evaluate:72Fxb2344) Requested for: ; Last Rx:31Dec2012 9. Ibuprofen 800 MG Oral Tablet; TAKE 1 TABLET 3 TIMES DAILY NEEDED; Therapy: 43Otp2676 to (Evaluate:19Ppj4328) Requested for: 17Sep2012; Last Rx:17Sep2012 10. Januvia 100 MG Oral Tablet; TAKE 1 TABLET DAILY; Therapy: 07Oct2012 to (Evaluate:05Jan2013) Requested for: 07Oct2012; Last Rx:07Oct2012 11. MetFORMIN HCl ER 500 MG Oral Tablet Extended Release 24 Hour; TAKE 1 TABLET DAILY; Therapy: 15Nov2011 to (Evaluate:37Tbn3171) Requested for: 17Sep2012; Last Rx: 17Sep2012 12. Triamcinolone Acetonide 0.5 % External Cream; APPLY SPARINGLY AND MASSAGE IN TWICE DAILY; Therapy: 13Uwr3342 to (Evaluate:85Hvp2338) Requested for: 93Ogj7954; L ast Rx:89Qpr5633 13. Vitamin D (Ergocalciferol) 31477 UNIT Oral Capsule; TAKE 1 CAPSULE WEEKLY; T herapy: 07Oct2012 to (Evaluate:19Oct2012) Requested for: 07Oct2012; Last Rx:07Oct2012 14. Vitamin D3 5000 UNIT Oral Tablet; TAKE 1 TABLET DAILY; Therapy: 15Nov2011 to (Evaluate:30Wma9186) Requested for: 97Mzh3321; Last Rx:14Yyq3510 Allergies No Known Drug Allergies Vitals Signs [Data Includes: Last 1 Day] 17Jan2013 11:36AM BMI Calculated: 47.14 BSA Calculated: 2.31 Weight: 286 lb 6.4 oz Systolic: 140, LUE, Sitting Diastolic: 94, LUE, Sitting Temperature: 97.4 F, Oral Heart Rate: 80, L Radial Pulse Quality: Regular, L Radial Immunizations Influenza --- Series1: 42Sso0079 MMR --- Series1: Childhood Td/DT --- Series1: Approx [id number] Review of Systems Complete-Male ROS - SLMG: Eye, otolaryngeal, neck symptoms, pulmonary, gastroint estinal, skin, psychiatric, endocrine and hematologic review of systems are norm al except as per HPI and unless noted below. Constitutional: Constitutional: feeling tired and feels overweight. Cardiovascular: Patient also notes intermittent leg claudication, but no chest p ain or discomfort and no dyspnea. Musculoskeletal: knee pain. Active Problems 1. Allergic Rhinitis [...] Knee Bilateral 719.46 12. Obesity 278.00 13. Stasis Dermatitis 454.1 14. Transient Ischemic Attack 435.9 15. Type 2 Diabetes Mellitus 250.00 16. 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 Denied History of Alcohol Use Physical Exam General appearance: Alert and oriented x 3, healthy appearing, in no acute distr ess. Patient appears obese. Examination of the head and face: Normo cephalic, atraumatic. Inspection of conjunctiva and lids: Normal. Examination of pupils and irises: Pupils equally round and reactive to light and accommodation; extraocular movements intact. External inspection of ears and nose: Ear canal normal. Assessment of hearing: Normal. Examination of nasal mucosa, septum, turbinates: Turbinates normal, no rhinorrhe a or septal deviation. Inspection of lips, teeth, gums: Normal. Examination of oropharynx: No erythema, exudate, or drainage of the oropharynx. Assessment of respiratory effort:. Normal. Auscultation of lungs:. Clear to auscultation bilaterally; no wheezing. Auscultation of heart:. Regular rate and rhythm, no murmur. Examination for edema/varicosities: Normal. Examination of gait and station:. Normal gait; no muscle weakness. Examination of digits and nails:. Normal. Inspection/palpation joints, bones, muscles:. Normal. Assessment of range of motion:. Normal. Inspection of skin and subcutaneous tissue: No rash, lesions, or ulcers. Coordination: Normal. Mood and affect:. Normal mood and affect. Counseling Time/Counseling Documentation SLMG: The patient was/were counseled regarding pro per use of medications and side effects. His questions were answered and he expr essed understanding., prognosis, risks and benefits of treatment options, instru ctions for management, importance of compliance with treatment and risk factor r eductions. Results/Data Results 04Oct2012 02:12PM Hemoglobin A1C sugar is in the diabetic range. [facility] clinical staff educator and forest fire management officer. Add januvia 100 mg daily and recheck A1c in 3 months. Vitamin D is l ow, advise 50,000 units once a week for 12 weeks and then recheck a level. Trigl ycerides are elevated. Add fish oil daily and recheck lipids in 12 weeks. Hemoglobin A1C: 7.6 Abnormal 04Oct2012 10:18AM CBC with Diff sugar is in the diabetic range. Advise to refer to [facility], clinical staff educator and forest fire management officer. Add januvia 100 mg daily and recheck A1c in 3 months. Vitamin D is l ow, advise 50,000 units once a week for 12 weeks and then recheck a level. Trigl ycerides are elevated. Add fish oil daily and recheck lipids in 12 weeks. WHITE BLOOD CELL COUNT: 7.11 TH/uL Reference Range 4.00-11.00 Red Blood Cell Count: 5.23 MIL/uL Reference Range 4.31-5.84 Hemoglobin: 15.2 g/dL Reference Range 13.0-17.0 Hematocrit: 45 % Reference Range 40-50 Mean Corpuscular Volume: 86 fL Reference Range 80-99 Mean Corpuscular Hgb: 29 pg Reference Range 27-34 Mean Corpuscular Hgb Conc: 34 % Reference Range 32-36 Red Cell Distribution Width: 13.7 % Reference Range 9.0-14.5 Platelet Count: 266 TH/uL Reference Range 140-400 Mean Platelet Volume: 10.7 fL Reference Range 9.4-12.3 % Segmented Neutrophils, Auto: 41 % Abnormal Low Reference Range 45-78 % Lymphocytes, Auto: 45 % Reference Range 15-47 % Monocytes, Auto: 9 % Reference Range 0-12 % Eosinophils, Auto: 5 % Reference Range 0-7 % Basophils, Auto: 1 % Reference Range 0-2 # Grans: 2.89 TH/uL Reference Range 1.70-6.80 # Lymphs: 3.18 TH/uL Reference Range 1.00-3.30 # Monos: 0.63 TH/uL Reference Range 0.20-0.90 # Eos: 0.35 TH/uL Reference Range 0.00-0.40 # Basos: 0.06 TH/uL Reference Range 0.00-0.10 Lipid Profile sugar is in the diabetic range. Advise to refer to [facility], clinical staff educator and forest fire management officer. Add januvia 100 mg daily and recheck A1c in 3 months. Vitamin D is l ow, advise 50,000 units once a week for 12 weeks and then recheck a level. Trigl ycerides are elevated. Add fish oil daily and recheck lipids in 12 weeks. Hours Post Prandial: 12 H Cholesterol Lipid Prof: 130 mg/dL Reference Range 100-200 Triglycerides: 296 mg/dL Abnormal High Reference Range 0-150 Hdl: 19 mg/dL Abnormal Low Reference Range 40-110 Ldl Cholesterol: 52 mg/dL Reference Range 0-99 Total Cholesterol/Hdl Ratio: 6.8 Abnormal High Reference Range 0.0-4.5 Non- HDL Cholesterol: 111 mg/dL Reference Range 0-130 CMP-Comprehensive Metabolic Panel sugar is in the diabetic range. Advise to refer to [facility], clinical staff educator and forest fire management officer. Add januvia 100 mg daily and recheck A1c in 3 months. Vitamin D is l ow, advise 50,000 units once a week for 12 weeks and then recheck a level. Trigl ycerides are elevated. Add fish oil daily and recheck lipids in 12 weeks. Albumin: 4.2 g/dL Reference Range 3.5-5.0 Aspartate Aminotransferase: 32 IU/L Reference Range 15-46 Alanine Aminotransferase: 52 IU/L Reference Range 13-69 Bilirubin Total: 0.7 mg/dL Reference Range 0.2-1.3 Protein Total Serum: 7.3 g/dL Reference Range 6.0-8.2 Calcium: 9.1 mg/dL Reference Range 8.4-10.2 Creatinine: 1.1 mg/dL Reference Range 0.6-1.3 Glucose: 127 mg/dL Abnormal High Reference Range 70-100 Alkaline Phosphatase: 91 IU/L Reference Range 42-140 Sodium: 144 MEQ/L Reference Range 133-147 Potassium: 4.7 MEQ/L Reference Range 3.5-5.1 Chloride: 105 MEQ/L Reference Range 96-112 Anion Gap: 12 Reference Range 5-17 Blood Urea Nitrogen: 16 mg/dL Reference Range 7-26 Carbon Dioxide: 27 MEQ/L Reference Range 20-30 Gfrm Aa: 87 Gfrm Non Aa: 72 TSH-Thyroid Stimulating Hormone sugar is in the diabetic range. Advise to refer to [facility], clinical staff educator and forest fire management officer. Add januvia 100 mg daily and recheck A1c in 3 months. Vitamin D is l ow, advise 50,000 units once a week for 12 weeks and then recheck a level. Trigl ycerides are elevated. Add fish oil daily and recheck lipids in 12 weeks. Thyroid Stimulating Hormone: 2.67 uIU/mL Reference Range 0.47-4.68 Vitamin D, 25-Hydroxy sugar is in the diabetic range. Advise to refer to ophtho, clinical staff educator and forest fire management officer. Add januvia 100 mg daily and recheck A1c in 3 months. Vitamin D is l ow, advise 50,000 units once a week for 12 weeks and then recheck a level. Trigl ycerides are elevated. Add fish oil daily and recheck lipids in 12 weeks. Vitamin D 25-Hydroxy: 19 ng/mL Assessment 1. Type 2 Diabetes Mellitus 250.00 2. Vitamin D Deficiency 268.9 3. Hyperlipidemia 272.4 4. Hypertension 401.9 5. Fatigue 780.79 6. Joint Pain, Localized In The Knee Bilateral 719.46 7. Coronary Artery Disease 414.00 8. Current Every Day Smoker 305.1 APPROXIMATELY 1/2 PACK PER DAY Plan Coronary Artery Disease (414.00) 1. Consult Vein Clinic Consult Only Follow-up Requested for: [id number] Ordered; For: Coronary Artery Disease (414.00); Ordered By: ALEXSANDRA XIONG Pe rformed: Due: 23Ohr9584 2. Ankle/Brachial Indices Requested for: 79Qrs1248 Ordered; For: Coronary Artery Disease (414.00); Ordered By: ALEXSANDRA XIONG Pe rform: On Site Due: 88Bvy4914; Last Updated By: Sydnee Layton Hyperlipidemia (272.4) 3. CMP-Comprehensive Metabolic Panel Requested for: [id number] Ordered; For: Hyperlipidemia (272.4); Ordered By: ALEXSANDRA XIONG Perform: SLR L/Cerner Due: 83Reh4588 4. Lipid Profile Requested for: 58Kok9440 Ordered; For: Hyperlipidemia (272.4); Ordered By: ALEXSANDRA XIONG Perform: SLR L/Cerner Due: 89Dhw5846 Hypertension (401.9) 5. Bystolic 5 MG Oral Tablet; TAKE 1 TABLET DAILY; Therapy: 18Sih6937 to (Evalua te:12Sep2013); Last Rx:[id number]; Edited Ordered; For: Hypertension (401.9); Rx By: ALEXSANDRA XIONG; Dispense: 28 Days ; # :28 Tablet; Refill: 0; BIBIANA; Dispense Sample; Last Updated By: Sdynee Layton 6. Bystolic 5 MG Oral Tablet; TAKE 1 TABLET DAILY; Therapy: 13Szm1836 to (Last R x:17Jan2013) Requested for: 95Gow7601; Edited Ordered; For: Hypertension (401.9); Rx By: ALEXSANDRA XIONG; Dispense: 30 Days ; # :30 Tablet; Refill: 6; BIBIANA; Verified Transmission to [facility]; Last Updated By: Jareth Weems 7. Carvedilol 12.5 MG Oral Tablet; TAKE 1 TABLET TWICE DAILY WITH MEALS; Therapy : 24Dec2011 to 17Jan2013; Last Rx:04Oct2012; Status: DISCONTINUED Ordered; For: Hypertension (401.9); Rx By: ALEXSANDRA XIONG; Dispense: 30 Days ; # :60 Tablet; Refill: 3; Sent To: [facility] Joint Pain, Localized In The Knee (719.46) 8. Consult Orthopedist Consult Only Follow-up Requested for: [id number] Ordered; For: Joint Pain, Localized In The Knee (719.46); Ordered By: BRIELLE XIONG Performed: Due: 22Jan2013; Last Updated By: Sydnee Layton Type 2 Diabetes Mellitus (250.00) 9. Hemoglobin A1C Requested for: 77Nil1273 Ordered; For: Type 2 Diabetes Mellitus (250.00); Ordered By: ALEXSANDRA XIONG erform: SLRL/Cerner Due: 00Kcw8814 10. Microalbumin Urine Albert Requested for: 27Iza3854 Ordered; For: Type 2 Diabetes Mellitus (250.00); Ordered By: ALEXSANDRA XIONG erform: SLRL/Cerner Due: 89Qrr9445 Vitamin D Deficiency (268.9) 11. Vitamin D, 25 Hydroxy Requested for: 87Jqs2813 Ordered; For: Vitamin D Deficiency (268.9); Ordered By: ALEXSANDRA XIONG m: SLRL/Cerner Due: 95Uqx4248 reviewed labs from last visit he is tolerating januvia coupon for januvia given continue current diabetes meds for now if A1c is improved could consider change to janumet XR due for a repeat vitamin D BP is slightly elevated today stop coreg as it could cause fatigue sample of bystolic given instead follow up in 3-4 weeks to recheck BP with change in meds refer to ortho for knee pain I am concerned about PAD due to history of CAD, smoking and claudication encourage smoking cessation discussed chantix schedule SOFY refer to vein clinic for his venous concerns. Patient was instructed to return to clinic if symptoms worsen or do not improve, as needed and in 3-4 week(s). Patient Instructions: Diet, continue/start medications as outlined and Exercise. Proper use and side effects of medications were reviewed with the patient. The patient's questions were answered and he expressed understanding. Treatment Goals: Your goal HgbA1c is 6.5. Your goal BP is 135/85. Your goal LDL cholesterol is 70. Signatures Electronically signed by : ALEXSANDRA XIONG M.D.; Jan 17 2013 1:02PM (Author) * Alexsandra Xiong MD - 01/17/2013 11:30 AM CDT Clinical Summary Patient Name : GIACOMO TRAYLOR Appointment Date: 01/17/2013 11:30:00 AM : [id number] : [address] [place] [address] : Assessed Problems Type 2 Diabetes Mellitus Vitamin D Deficiency Hyperlipidemia Hypertension Fatigue Joint Pain, Localized In The Knee Coronary Artery Disease Current Every Day Smoker Treatment Plan Medication Changes: Bystolic 5 MG Oral Tablet; TAKE 1 TABLET DAILY.; Days: 30; Qty: 30; Refill: 6 [Start] Bystolic 5 MG Oral Tablet; TAKE 1 TABLET DAILY.; Days: 28; Qty: 28; Refill: 0 [Start] Carvedilol 12.5 MG Oral Tablet; TAKE 1 TABLET TWICE DAILY WITH MEALS.; Days: 3 0; Qty: 60; Refill: 3 [Stop] Labs/Procedures: Vitamin D, 25 Hydroxy Hemoglobin A1C Microalbumin Urine Albert CMP-Comprehensive Metabolic Panel Lipid Profile Ankle/Brachial Indices Follow-ups/Referrals: Consult Orthopedist Consult Vein Clinic Vitals Recorded Date/Time: 01/17/2013 11:36:00 AM Systolic: 140 mm Hg; Diastolic: 94 mm Hg; Temperature: 97.4 F; Heart Rate: 80 bpm; Pulse Quality: Regular; BMI Calculated: 47.14; BSA Calculated: 2.31; W eight: 286.4-0 lb Current Medications ALPRAZolam 1 MG Oral Tablet; TAKE 1 TABLET 3 TIMES DAILY NEEDED. MAY CAUSE DROWSINESS.; Days: 20; Qty: 60; Refill: 0 Atorvastatin Calcium 20 MG Oral Tablet; TAKE 1 TABLET DAILY AT BEDTIME.; Days: 30; Qty: 30; Refill: 5 Bystolic 5 MG Oral Tablet; TAKE 1 TABLET DAILY.; Days: 30; Qty: 30; Refill: 6 Bystolic 5 MG Oral Tablet; [...] Days: 30 ; Qty: 90; Refill: 5 Januvia 100 MG Oral Tablet; TAKE 1 TABLET DAILY.; Days: 30; Qty: 30; Refill: 2 MetFORMIN HCl ER 500 MG Oral Tablet Extended Release 24 Hour; TAKE 1 TABLET DA FUNMILAYO; Days: 30; Qty: 30; Refill: 5 Triamcinolone Acetonide 0.5 % External Cream; APPLY SPARINGLY AND MASSAGE IN T WICE DAILY.; Days: 30; Qty: 15; Refill: 5 Vitamin D (Ergocalciferol) 18562 UNIT Oral Capsule; TAKE 1 CAPSULE WEEKLY; Day s: 12; Qty: 12; Refill: 0 Vitamin D3 5000 UNIT Oral Tablet; TAKE 1 TABLET DAILY.; Days: 30; Qty: 30; Ref ill: 11 Allergies No Known Drug Allergies Future Appointments 02/07/2013 1:00:00 PM,AIDAN UPTON Document and Provider Details Document: Clinical Summary Provider: AIDAN Site: [facility] Site Address : [address] [place] [address] Site documented in this encounter Plan of Treatment Not on filedocumented as of this encounter Visit Diagnoses Not on filedocumented in this encounter
--- OUTSIDE RECORDS SUMMARY | 2019-08-27 21:01 | XMS REPORT | Encounter Summary ---
Author Author [facility] Organization 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 Name Role Phone PCP Unavailable Encounter Details Care Team Description Date Type Department Leanne Xiong MD 10/04/2012 [facility] Encounter [id number] [place] [address] Social History Date Tobacco Use Types Packs/Day [...] Procedure Name Priority Date/Time Associated Diag nosis VITAMIN D, 25-HYDROXY Routine 10/04/2012 10:18 AM CDT THYROID STIMULATING Routine 10/04/2012 HORMONE 10:18 AM CDT LIPID PANEL Routine 10/04/2012 10:18 AM CDT COMPREHENSIVE METABOLIC Routine 10/04/2012 PANEL 10:18 AM CDT CBC AND DIFF (MANUAL DIFF Routine 10/04/2012 IF NECESSARY) 10:18 AM CDT documented in this encounter Results * CBC and Diff (manual diff if necessary) (10/04/2012 10:18 AM CDT) WBC 7.11 4.00 - 11.00 TH/UL [facility] RBC 5.23 4.31 - 5.84 MIL/UL [facility] Hemoglobin 15.2 13.0 - 17.0 G/DL [facility] Hematocrit 45 40 - 50 % [facility] MCV 86 80 - 99 FL [facility] MCH 29 27 - 34 PG [facility] MCHC 34 32 - 36 % [facility] RDW 13.7 9.0 - 14.5 % [facility] Platelet Count 266 140 - 400 TH/UL [facility] MPV 10.7 9.4 - 12.3 FL [facility] % Neutrophils 41 (L) 45 - 78 % [facility] %Lymphocytes 45 15 - 47 % [facility] %Monocytes 9 0 - 12 % [facility] %Eosinophils 5 0 - 7 % [facility] # Basophils 0.06 0.00 - 0.10 TH/UL [facility] # Eosinophils 0.35 0.00 - 0.40 TH/UL [facility] %Basophils 1 0 - 2 % [facility] # Monocytes 0.63 0.20 - 0.90 TH/UL [facility] # Lymphocytes 3.18 1.00 - 3.30 TH/UL [facility] # Granulocytes 2.89 1.70 - 6.80 TH/UL [facility] Specimen Blood Performing Organization Address City/State/Zipcode Ph one Number [facility] [phone] [place], [place] [address] [facility] * Comprehensive Metabolic Panel (10/04/2012 10:18 AM CDT) Albumin 4.2 3.5 - 5.0 G/DL [facility] Aspartate 32 15 - 46 IU/L [facility] Aminotransferas e Bilirubin Total 0.7 0.2 - 1.3 MG/DL [facility] Protein Total 7.3 6.0 - 8.2 G/DL [facility] Serum Calcium 9.1 8.4 - 10.2 MG/DL [facility] Creatinine 1.1 0.6 - 1.3 MG/DL [facility] Glucose 127 (H) 70 - 100 MG/DL [facility] Alkaline 91 42 - 140 IU/L [facility] Phosphatase Sodium 144 133 - 147 MEQ/L [facility] Potassium 4.7 3.5 - 5.1 MEQ/L [facility] Chloride 105 96 - 112 MEQ/L [facility] Carbon Dioxide 27 20 - 30 MEQ/L [facility] Blood Urea 16 7 - 26 MG/DL [facility] Nitrogen Anion Gap 12 5 - 17 [facility] Alanine 52 13 - 69 IU/L [facility] Aminotransferas e eGFR Male 72 [facility] Non-AA Comment: Chronic Kidney Disease less than 60 mL/min/1.73 sq.m Kidney failure less than 15 mL/min/1.73 sq.m eGFR Male AA 87 [facility] Comment: Chronic Kidney Disease less than 60 mL/min/1.73 sq.m Kidney failure less than 15 mL/min/1.73 sq.m Specimen Blood Performing Organization Address [facility] one Number [facility] [address] [place] [phone] [facility] * Lipid Panel (10/04/2012 10:18 AM CDT) Cholesterol 130 100 - 200 MG/DL [facility] Triglycerides 296 (H) 0 - 150 MG/DL [facility] HDL Cholesterol 19 (L) 40 - 110 MG/DL [facility] LDL Cholesterol 52 0 - 99 MG/DL [facility] Cholesterol/HDL 6.8 (H) 0.0 - 4.5 [facility] Ratio Non-HDL 111 0 - 130 MG/DL [facility] Cholesterol Hours 12 H [facility] Postprandial Specimen Blood Performing Organization Address [facility] one Number [facility] [phone] [place] [phone] [facility] * Thyroid Stimulating Hormone (10/04/2012 10:18 AM CDT) Thyroid 2.67 0.47 - 4.68 UIU/ML [facility] Stimulating Hormone Specimen Blood Performing Organization Address [facility] one Number [facility] [address] [place] [phone] [facility] * Vitamin D, 25-Hydroxy (10/04/2012 10:18 AM CDT) Vitamin D 19 NG/ML [facility] 25-Hydroxy Comment: Vitamin D 25-Hydroxy: Severe deficiency < 13 ng/mL Mild to moderate deficiency 13 - 24 ng/mL Optimum level 25 - 80 ng/mL Toxicity possible >80 ng/mL Specimen Blood Performing Organization Address City/State[facility] Ph one Number [facility] [address] [place], [place] [address] [facility] documented in this encounter Visit Diagnoses Not on filedocumented in this encounter
--- OUTSIDE RECORDS SUMMARY | 2019-08-27 21:01 | XMS REPORT | Encounter Summary ---
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 documented as of this encounter Consult Notes * Alicia Escobar MD - 09/05/2013 5:20 PM PROJECT PROGRAM MANAGER REPORT [facility] Polysomnogram Interpretation Name: GIACOMO TRAYLOR Date of : 1965 Date of Study: 10/2012 REFERRING PHYSICIAN: Dr. Leanne Xiong Dear Dr. Xiong. As we discussed on the phone today, your patient, Giacomo Traylor, had a sleep study done October 26, 2012 to evaluate complaints of disrupted sleep, loud snoring, and daytime sleepiness. The study confirmed the presence of severe obstructive sleep apnea/hypopnea syndrome with 74 events per hour of sleep and arterial oxygen desaturation to 69%. Sleep-related hypoxemia was also present with a baseline that fell to 88% or lower, over half of the recording time prior to the institution of therapy. CPAP was instituted and titrated to a pressure of 15 which did not completely control his apnea and left him with 13 events per hour of sleep. He did have some issues with mask leak also. PACs and PVCs were seen. We will get him started on therapy as soon as possible. We will put a call in to him today and start him on CPAP of 16 and then bring him back for either further CPAP or BiPAP titration. Pulmonary function studies and arterial blood gas will also be appropriate given the prolonged hypoxia. Thank you for utilizing the [facility]. Sincerely, Alicia Escobar MD Dictated By: cc: Authenticated and Edited by Alicia Escoabr MD On 10/28/12 6:46:29 PM ECT PROGRAM MANAGER documented in this encounter Plan of Treatment Not on filedocumented as of this encounter Visit Diagnoses Diagnosis Obstructive sleep apnea (adult) (pediat yovany) documented in this encounter
--- OUTSIDE RECORDS SUMMARY | 2019-08-27 21:01 | XMS REPORT | Encounter Summary ---
Author Author [facility] Organization [facility] Address Unknown Phone Unavailable Care Team Providers Care Sales Manager Prearranged Funerals Name Role Phone PCP Unavailable Encounter Details Care Team Description Date Type Department Darien Beltran MD [address] [place], [place] [id number] Chondromalacia of patella 12/03/2012 [facility] [address] [place] [address] Social History Date Tobacco Use Types Packs/Day [...] Procedure Name Priority Date/Time Associated Diag nosis MRI LOWER EXTREMITY JOINT Routine 12/03/2012 WO CONTRAST LEFT 3:00 PM CDT documented in this encounter Results * MRI Lower Extremity joint wo contrast left (12/03/2012 3:00 PM CDT) Specimen Narrative Performed At [facility] Patient: GIACOMO TRAYLOR Phone #: YOHO Rec#: [id number] Sex: M : 1965 Javed#: [id number] Location: Check-in#: [id number] Procedure Requested: [id number] MRI LOW EXT JOINT WO CON LEFT Reason For Exam: PAIN Exam Ordered: 12/03/2012 141 1 Exam Date/Time: 12/03/2012 1535 Check-in Date/Time: 12/03/2012 1411 Attendin DARIEN BELTRAN Requestin DARIEN BELTRAN Referrin NO, REFERRING Primary Care: [id number] ALEXSANDRA BERMUDEZ MD Name: GIACOMO TRAYLOR Procedure: MRI LOW EXT JOINT WO CON LEFT Dictation Location: [place] Exam Date: December 03, 2012 03:35:00 PM Reason for exam: PAIN . Remote traum a. There is some mucoid degeneration of th e posterior horn and body of the medial meniscus. There is questionable communication with the free edge of the medial meniscus which may repres ent a very small medial meniscal tear. The anterior horn of the medial m eniscus is unremarkable. The lateral meniscus shows no abnormal signal to suggest a tear. The lateral meniscus shows no extrusion. No parameniscal cysts are around the lateral meniscus. The posterior eleuterio t of the lateral meniscus is intact. The anterior cruciate ligament shows no abnormal signal to suggest a tear. The posterior cruciate ligament i s unremarkable. There is some possible mucoid degeneration in the pos terior cruciate ligament. The extensor mechanism shows no edema to contreras ggest a tear. The medial collateral ligament is intact without a tear. The fibular collateral ligament is unremarkable. The biceps fe padmini tendon shows no tear. The iliotibial band reveals no inflammation . There is no significant joint effusion. There is a nondistended Matute's cyst. The articular cartilage shows a 1 cm osteochondral defect in the trochlea with subchondral cystic change . The weight-bearing articular cartilage has some mild diffuse thinnin g in the medial compartment. The bone marrow shows no infiltrating l esions. No bone contusions are present. No fractures are present. No infiltrating bone marrow lesions are present. No cortical destruction is present. The soft tissues show some mild edema a nd varicose veins. There is muscle atrophy. Impression: There is articular cartilag e loss, greatest in the patellofemoral compartment. There is some minimal increased signal in the medial meniscus which possibly communicates with the free edg e and could represent a small tear. 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 , Staff Radiologist Authenticated By- JONAS Sahu, Staff Radiologist Procedure Note Interface, Rad Conversion - 09/05/2013 5:46 PM GRADUATE ASSISTANT REPORT Patient: GIACOMO TRAYLOR Phone #: Med Rec#: [id number] Sex: M : 1965 Javed#: [id number] Location: Check-in#: [id number] Procedure Requested: [id number] MRI LOW EXT JOINT WO CON LEFT Reason For Exam: PAIN Exam Ordered: 12/03/2012 1411 Exam Date/Time: 12/03/2012 1535 Check-in Date/Time: 12/03/2012 1411 Attendin DARIEN BELTRAN Requestin DARIEN BELTRAN Referrin ARNEL, REFERRING Primary Care: [id number] ALEXSANDRA BERMUDEZ MD Name: GIACOMO TRAYLOR Procedure: MRI LOW EXT JOINT WO CON LEFT Dictation Location: [place] Exam Date: December 03, 2012 03:35:00 PM Reason for exam: PAIN . Remote trauma. There is some mucoid degeneration of the posterior horn and body of the medial meniscus. There is questionable communication with the free edge of the medial meniscus which may represent a very small medial meniscal tear. The anterior horn of the medial meniscus is unremarkable. The lateral meniscus shows no abnormal signal to suggest a tear. The lateral meniscus shows no extrusion. No parameniscal cysts are around the lateral meniscus. The posterior root of the lateral meniscus is intact. The anterior cruciate ligament shows no abnormal signal to suggest a tear. The posterior cruciate ligament is unremarkable. There is some possible mucoid degeneration in the posterior cruciate ligament. The extensor mechanism shows no edema to suggest a tear. The medial collateral ligament is intact without a tear. The fibular collateral ligament is unremarkable. The biceps femoris tendon shows no tear. The iliotibial band reveals no inflammation. There is no significant joint effusion. There is a nondistended Matute's cyst. The articular cartilage shows a 1 cm osteochondral defect in the trochlea with subchondral cystic change. The weight-bearing articular cartilage has some mild diffuse thinning in the medial compartment. The bone marrow shows no infiltrating lesions. No bone contusions are present. No fractures are present. No infiltrating bone marrow lesions are present. No cortical destruction is present. The soft tissues show some mild edema and varicose veins. There is muscle atrophy. Impression: There is articular cartilage loss, greatest in the patellofemoral compartment. There is some minimal increased signal in the medial meniscus which possibly communicates with the free edge and could represent a small tear. Signed (Authenticated, Released) Date-Time: 12/04/2012 0843 C[employer] Livestock Tenant Farmer- JONAS NICOLAS M.D., Staff Radiologist Dictated By- JONAS NICOLAS M.D., Staff Radiologist Staff Physician- JONAS NICOLAS M.D., Staff Radiologist Authenticated By- JONAS NICOLAS M.D., Staff Radiologist Performing Organization Address City/State/Zipcode Ph one Number [place] documented in this encounter Visit Diagnoses Diagnosis Chondromalacia of patella documented in this encounter
--- OUTSIDE RECORDS SUMMARY | 2019-08-27 21:01 | XMS REPORT | Encounter Summary ---
Author Author [facility] Organization [facility] Address Unknown Phone Unavailable Care Team Providers Care Vocational Training Director Name Role Phone Leanne Xiong PCP Unavailable Encounter Details Care Team Description Date Type Department Leanne Xiong MD 09/17/2012 Hist-Appointmen [facility] t Social [...] Signs Reading Time Taken Comments Vital Sign 140/98 09/17/2012 2:04 PM CDT Blood Pressure 62 09/17/2012 2:04 PM CDT Pulse - - Temperature - - Respiratory Rate - - Oxygen Saturation - - Inhaled Oxygen Concentration 131.8 kg (290 lb 9.6 oz) 09/17/2012 2:04 PM CDT Weight 166.4 cm (5' 5.5") 09/17/2012 2:04 PM CDT Height 47.62 09/17/2012 2:04 PM CDT Body Mass Index documented in this encounter Progress Notes * Leanne Xiong MD - 09/17/2012 2:00 PM CDT Chief Complaint Chief Complaint: The patient presents to the office today with knee pain and rash. History of Present Illness Free Text HPI: He is here today with concerns. 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 He has had redness in his leg for the past year and a half. He was treated with cream and it did not get better. He was referred to dermatology. He was given another cream that did not help. Benavidez called it stasis dermatitis. He is frustrated that it is not better. Alexandra tee is wearing the compression stockings. He is having left knee pain as well. He was seen by an ortho doctor but he has not gotten back in. He thinks it was 4-5 months ago. He had an xray at that time and "said something about the outside of my knee" and gave him hydrocodone. It does help with the pain. He was advised to have an MRI. He has not had it done. He was out of town. He needs refills of all of his meds. Hypertension-SLMG: The patient is being seen for an initial evaluation of an exi sting diagnosis of benign hypertension. Symptoms:. The patient is currently asymptomatic. Associated symptoms: . No associated sypmtoms. Disease Management: a fasting lipid profile has been done in the last year. Current treatment includes beta blockers. The patient reports no side effects from treatment. By report, there is good compliance with treatment, good tolerance of treatment and good symptom control. Hyperlipidemia-SLMG: The patient is being seen for an initial evaluation of an existing diagnosis of hyperlipidemia. Patient was fasting. The most recent labs for this patient were done on 02/17. e patient is due for a lipid panel and liver function tests. Current treatment i ncludes statins. By report, there is good compliance with treatment, good tolera nce of treatment and good symptom control. Pre-Diabetes: The patient is being seen for an initial evaluation of an existing diagnosis of pre-diabetes. Recent measurements: hemoglobin A1c date 11/17. Sympt oms: fatigue and weight gain, but no dyspnea and no chest pain. Current treatme nt includes metformin. Vitamin D Deficiency: The patient is being seen for an initial evaluation of vit evans D deficiency. Disease type: vitamin D deficiency. Recent laboratory results : date 02/17. Current treatment includes vitamin D3 (cholecalciferol). The patien t is currently asymptomatic. Current Meds 1. ALPRAZolam 0.5 MG Oral Tablet; TAKE ONE TABLET DAILY NEEDED; Therapy: 04 to (Evaluate:15Sep2012) Requested for: [id number]; Last Rx:[id number] 2. Atorvastatin Calcium 20 MG Oral Tablet; TAKE 1 TABLET DAILY AT BEDTIME; Thera py: 09Apr2012 to (Evaluate:06Oct2012) Requested for: 09Apr2012; Last Rx:09Apr2012 3. Carvedilol 6.25 MG Oral Tablet; Therapy: 24Dec2011 to 4. Cetirizine HCl 10 MG Oral Tablet; TAKE 1 TABLET DAILY; Therapy: 01Mar2012 to (Evaluate:90Ylf7587) Requested for: 80Wkv6806; Last Rx:[id number] 5. Fenofibrate 160 MG Oral Tablet; TAKE 1 TABLET DAILY; Therapy: 05Mar2012 to (Evaluate:53Pgt1288) Requested for: 05Mar2012; Last Rx:[id number] 6. Hydrocodone-Acetaminophen 7.5-325 MG Oral Tablet; TAKE ONE TABLET EVERY 8 RIGOBERTO RS NEEDED FOR PAIN; Therapy: 10Nov2011 to (Evaluate:25Jul2012) Requested for: ; Last Rx:[id number] 7. Ibuprofen 800 MG Oral Tablet; TAKE 1 TABLET 3 TIMES DAILY NEEDED; Therapy: 10Nov2011 to (Evaluate:15May2012) Requested for: 17Nov2011; Last Rx:17Nov2011 8. MetFORMIN HCl ER 500 MG Oral Tablet Extended Release 24 Hour; TAKE 1 TABLET D AILY; Therapy: 15Nov2011 to (Evaluate:28Aug2012) Requested for: 01Mar2012; Last Rx:2 10Feb2012 9. Triamcinolone Acetonide 0.5 % External Cream; APPLY SPARINGLY AND MASSAGE IN TWICE DAILY; Therapy: 01Mar2012 to (Evaluate:16Jtp0370) Requested for: 30Lyz5052; Sd st Rx:[id number] 10. Vitamin D3 5000 UNIT Oral Tablet; TAKE 1 TABLET DAILY; Therapy: 15Nov2011 to (Evaluate:24Feb2013) Requested for: 19Szj3525; Last Rx:[id number] Allergies No Known Drug Allergies Vitals Signs [Data Includes: Last 1 Day] 17Sep2012 02:04PM BMI Calculated: 47.84 BSA Calculated: 2.33 Height: 5 ft 5.5 in Weight: 290 lb 9.6 oz Systolic: 140, LUE, Sitting Diastolic: 98, LUE, Sitting Heart Rate: 62, L Radial Pulse Quality: Regular, L Radial Immunizations Influenza --- Series1: [id number] [facility] --- Series1: Childhood Td/DT --- Series1: Approx [id number] Review of Systems Complete-Male ROS - SLMG: Eye, otolaryngeal, neck symptoms, cardiovascular, pulm onary, neurological, endocrine and hematologic review of systems are normal exce pt as per HPI and unless noted below. Constitutional: recent weight gain, feeling tired and feels overweight. Musculoskeletal: knee problems and knee pain. Integumentary: skin rash. Active Problems 1. Allergic Rhinitis 477.9 2. Anxiety (Symptom) 300.00 3. Aortic Aneurysm 441.9 4. Coronary Artery Disease 414.00 5. Current Every Day Smoker 305.1 APPROXIMATELY 1/2 PACK PER DAY 6. Dermatitis 692.9 7. Fatigue 780.79 8. Ganglion Of The Right Hand 727.42 9. Hyperlipidemia 272.4 10. Hypertension 401.9 11. Joint Pain, Localized In The Knee Bilateral 719.46 12. Obesity 278.00 13. Working diagnosis of Obstructive Sleep Apnea 327.23 14. Prediabetes 790.29 15. Stasis Dermatitis 454.1 16. Transient Ischemic Attack 435.9 17. 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 Denied History of Alcohol Use Physical Exam General appearance: Alert and oriented x 3, healthy appearing, in no acute distr ess. Patient appears obese. Examination of the head and face: Normal cephalic, atraumatic. Inspection of conjunctiva and lids: Normal. Examination of pupils and irises: Pupils equally round and reactive to light and accommodation; extraocular movements intact. External inspection of ears and nose: Ear canal normal. Assessment of hearing: Normal. Examination of oropharynx: No erythema, exudate, or drainage of the oropharynx. Assessment of respiratory effort:. Normal. Auscultation of lungs:. Clear to auscultation bilaterally; no wheezing. Auscultation of heart:. Regular rate and rhythm, no murmur. Palpation of lymph nodes in neck:. Normal. Examination of gait and station:. Normal gait; no muscle weakness. Inspection/palpation joints, bones, muscles:. Normal. Assessment of range of motion:. Normal. Inspection of skin and subcutaneous tissue: No rash, lesions, or ulcers. Coordination: Normal. Mood and affect:. Normal mood and affect. Observed mood and affect: hard. Results/Data Results 01Mar2012 10:10AM Lipid Profile LDL good, triglycerides bad. Add fenofibrate tx. Hours Post Prandial: 9 Cholesterol Lipid Prof: 154 mg/dL Reference Range 100-200 Triglycerides: 349 mg/dL Abnormal High Reference Range 0-150 Hdl: 22 mg/dL Abnormal Low Reference Range 40-110 Ldl Cholesterol: 62 mg/dL Reference Range 0-99 Total Cholesterol/Hdl Ratio: 7.0 Abnormal High Reference Range 0.0-4.5 Non- HDL Cholesterol: 132 mg/dL Abnormal High Reference Range 0-130 [id number] 02:36PM Vitamin D, 25 Hydroxy Vitamin D low. Almost-diabetic per A1c. Vitamin D,25-Hydroxy D2: <5 ng/mL Vitamin D,25-Hydroxy D3: 16 ng/mL Vitamin D,25-Hydroxy: 16 ng/mL Abnormal Low Reference Range 25-80 CMP-Comprehensive Metabolic Panel Vitamin D low. Almost-diabetic per A1c. Albumin: 4.1 g/dL Reference Range 3.5-5.0 Aspartate Aminotransferase: 34 IU/L Reference Range 15-46 Alanine Aminotransferase: 39 IU/L Reference Range 13-69 Bilirubin Total: 0.6 mg/dL Reference Range 0.2-1.3 Protein Total Serum: 7.6 g/dL Reference Range 6.0-8.2 Calcium: 8.8 mg/dL Reference Range 8.4-10.2 Creatinine: 1.0 mg/dL Reference Range 0.6-1.3 Glucose: 76 mg/dL Reference Range 70-100 Alkaline Phosphatase: 119 IU/L Reference Range 42-128 Sodium: 144 MEQ/L Reference Range 133-147 Potassium: 4.5 MEQ/L Reference Range 3.5-5.1 Chloride: 106 MEQ/L Reference Range 96-112 Anion Gap: 12 Reference Range 3-15 Blood Urea Nitrogen: 10 mg/dL Reference Range 7-26 Carbon Dioxide: 26 MEQ/L Reference Range 22-30 Gfrm Aa: 98 Gfrm Non Aa: 81 Hemoglobin A1C Vitamin D low. Almost-diabetic per A1c. Hemoglobin A1C: 6.4 % Abnormal High Reference Range 4.0-5.6 Assessment 1. Joint Pain, Localized In The Knee Bilateral 719.46 2. Dermatitis 692.9 3. Stasis Dermatitis 454.1 4. Prediabetes 790.29 5. Hyperlipidemia 272.4 6. Hypertension 401.9 7. Vitamin D Deficiency 268.9 Plan Allergic Rhinitis (477.9) 1. Cetirizine HCl 10 MG Oral Tablet; TAKE 1 TABLET DAILY; Therapy: 01Mar2012 to (Evaluate:16Mar2013) Requested for: 17Sep2012; Last Rx:17Sep2012; Edited Ordered; For: Allergic Rhinitis (477.9); Rx By: LEANNE XIONG; Dispense: 30 Day s ; #:30 Tablet; Refill: 5; Verified Transmission to [facility]; Last Updated By: Faustina,[email or web address] 2. Fluticasone Propionate 50 MCG/ACT Nasal Suspension; USE 2 SPRAYS IN EACH NOST RIL ONCE DAILY; Therapy: 72Qxu2112 to (Complete:16Mar2013) Requested for: 3; Last Rx:17Sep2012; Edited Ordered; For: Allergic Rhinitis (477.9); Rx By: LEANNE XIONG; Dispense: 30 Day s ; #:1 X 16 GM Bottle; Refill: 5; Verified Transmission to [facility]; Last Updat ed By: FaustinaAvantium Technologies Hyperlipidemia (272.4) 3. Atorvastatin Calcium 20 MG Oral Tablet; TAKE 1 TABLET DAILY AT BEDTIME; Thera py: 09Apr2012 to (Evaluate:16Mar2013) Requested for: 17Sep2012; Last Rx:17Sep2012; Edited Ordered; For: Hyperlipidemia (272.4); Rx By: LEANNE XIONG; Dispense: 30 Days ; #:30 Tablet; Refill: 5; Verified Transmission to [facility]; Last Updated By: Prince RocheSelf-A-r-[employer] 4. Fenofibrate 160 MG Oral Tablet; TAKE 1 TABLET DAILY; Therapy: 69Hvf1040 to (Evaluate:61Cif9112) Requested for: 17Sep2012; Last Rx:17Sep2012; Edited Ordered; For: Hyperlipidemia (272.4); Rx By: LEANNE XIONG; Dispense: 30 Days ; #:30 Tablet; Refill: 5; Verified Transmission to [facility]; Last Updated By: Prince RocheScripts 5. CMP-Comprehensive Metabolic Panel Requested for: 17Sep2012 Ordered; For: Hyperlipidemia (272.4); Ordered By: LEANNE XIONG Perform: SLR L/Cerner Due: 27Sep2012 6. Lipid Profile Requested for: 17Sep2012 Ordered; For: Hyperlipidemia (272.4); Ordered By: LEANNE XIONG Perform: SLR L/Cerner Due: 27Sep2012 Hypertension (401.9) 7. CBC with Diff Requested for: 17Sep2012 Ordered; For: Hypertension (401.9); Ordered By: LEANNE XIONG Perform: SLRL/ Cerner Due: 27Sep2012 8. TSH-Thyroid Stimulating Hormone Requested for: 17Sep2012 Ordered; For: Hypertension (401.9); Ordered By: LEANNE XIONG Perform: SLRL/ Cerner Due: 27Sep2012 Joint Pain, Localized In The Knee (719.46) 9. Ibuprofen 800 MG Oral Tablet; TAKE 1 TABLET 3 TIMES DAILY NEEDED; Therapy: 05Kao9716 to (Evaluate:43Lgi8345) Requested for: 17Sep2012; Last Rx:17Sep2012; Edited Ordered; For: Joint Pain, Localized In The Knee (719.46); Rx By: LEANNE XIONG; Dispense: 30 Days ; #:90 Tablet; Refill: 5; Verified Transmission to [facility]; Last Updated By: Faustina,SureScri[employer] 10. Consult Orthopedist Consult Only Follow-up Requested for: 17Sep2012 Ordered; For: Joint Pain, Localized In The Knee (719.46); Ordered By: BRIELLE XIONG Performed: Due: 22Sep2012; Last Updated By: Sydnee Layton 11. MRI LOW EXT JOINT W CON LEFT Done: 17Sep2012 Ordered; For: Joint Pain, Localized In The Knee (719.46); Ordered By: BRIELLE XIONG Perform: Other Order Comments: Left knee Due: 22Sep2012; Last Updated By : MAT GARBER 12. MRI LOW EXT JOINT W CON LEFT Requested for: 17Sep2012 Ordered; For: Joint Pain, Localized In The Knee (719.46); Ordered By: BRIELLE XIONG Perform: Other Order Comments: left knee Due: 22Sep2012; Last Updated By : MAT GARBER 13. MRI LOW EXT JOINT WO CON LEFT Done: 17Sep2012 Ordered; For: Joint Pain, Localized In The Knee (719.46); Ordered By: BRIELLE XIONG Perform: On Site Due: 22Sep2012; Last Updated By: MAT GARBER Prediabetes (790.29) 14. MetFORMIN HCl ER 500 MG Oral Tablet Extended Release 24 Hour; TAKE 1 TABLET DAILY; Therapy: 15Nov2011 to (Evaluate:16Mar2013) Requested for: 17Sep2012; Last Rx: 17Sep2012; Edited Ordered; For: Prediabetes (790.29); Rx By: LEANNE XIONG; Dispense: 30 Days ; # :30 Tablet Extended Release 24 Hour; Refill: 5; Verified Transmission to [facility]; Last Updated By: FaustinaAvantium Technologies 15. Hemoglobin A1C Requested for: 17Sep2012 Ordered; For: Prediabetes (790.29); Ordered By: LEANNE XIONG Perform: SLRL/ Cerner Due: 27Sep2012 Stasis Dermatitis (454.1) 16. Dermatology Outpatient Follow-up Requested for: 17Sep2012 Ordered; For: Stasis Dermatitis (454.1); Ordered By: LEANNE XIONG Performed : Due: 22Sep2012; Last Updated By: Sydnee Layton Vitamin D Deficiency (268.9) 17. Vitamin D, 25 Hydroxy Requested for: 17Sep2012 Ordered; For: Vitamin D Deficiency (268.9); Ordered By: LEANNE XIONG Perfor m: SLRL/Cerner Due: 22Sep2012 Unlinked 18. Carvedilol 6.25 MG Oral Tablet; TAKE 1 TABLET TWICE DAILY, WITH MORNING AND EVENING MEAL; Therapy: 24Dec2011 to (Evaluate:15Apr2013) Requested for: 17Sep2012; La st Rx:17Sep2012; Edited Ordered; Rx By: LEANNE XIONG; Dispense: 30 Days ; #:60 Tablet; Refill: 6; Veri fied Transmission to [facility]; Last Updated By: Jareth Weems I discussed stasis dermatitis with patient and that he is being appropriately tr eated He did not wish to follow up with his prior packaging designer will refer to a different packaging designer for a second opinion. He is vague about the history of his knee pain will proceed with MRI and refer to ortho will refill hydrocodone in the meantime. medications refilled as listed labs as ordered sleep study ordered. BP is elevated, will recheck on RTO. Patient was instructed to return to clinic if symptoms worsen or do not improve and as needed. Patient Instructions: continue/start medications as outlined. Proper use and ina e effects of medications were reviewed with the patient. The patient's questions were answered and he expressed understanding. Signatures Electronically signed by : LEANNE XIONG M.D.; Sep 18 2012 9:17AM (Author) * Leanne Xiong MD - 09/17/2012 2:00 PM CDT Clinical Summary Patient Name : GIACOMO TRAYLOR Appointment Date: 09/17/2012 2:00:00 PM : [id number] : [address] [place] [address] : Assessed Problems Dermatitis Joint Pain, Localized In The Knee Stasis Dermatitis Prediabetes Hyperlipidemia Hypertension Vitamin D Deficiency Treatment Plan Labs/Procedures: MRI LOW EXT JOINT WO CON LEFT Hemoglobin A1C Lipid Profile CMP-Comprehensive Metabolic Panel CBC with Diff TSH-Thyroid Stimulating Hormone Vitamin D, 25 Hydroxy Follow-ups/Referrals: Dermatology Consult Orthopedist Vitals Recorded Date/Time: 09/17/2012 2:04:00 PM Systolic: 140 mm Hg; Diastolic: 98 mm Hg; Heart Rate: 62 bpm; Pulse Quality: Regular; BMI Calculated: 47.84; BSA Calculated: 2.33; Height: 5-5.5 in; Weig ht: 290.6-0 lb Current Medications Triamcinolone Acetonide 0.5 % External Cream; APPLY SPARINGLY AND MASSAGE IN T WICE DAILY.; Days: 30; Qty: 15; Refill: 5 Vitamin D3 5000 UNIT Oral Tablet; TAKE 1 TABLET DAILY.; Days: 30; Qty: 30; Ref ill: 11 Allergies No Known Drug Allergies Future Appointments 10/04/2012 10:00:00 AM,,[facility] Document and Provider Details Document: Clinical Summary Provider: AIDAN Site: [facility] Site Address : [address] [place] [address] Site documented in this encounter Plan of Treatment Not on filedocumented as of this encounter Visit Diagnoses Not on filedocumented in this encounter
--- OUTSIDE RECORDS SUMMARY | 2019-08-27 21:01 | XMS REPORT | Encounter Summary ---
Author Author [facility] Organization [facility] Address Unknown Phone Unavailable Care Team Providers Care Low Altitude Air Defense Gunner Name Role Phone Leanne Xiong PCP Unavailable Encounter Details Care Team Description Date Type Department Leanne Xiong MD 10/07/2012 Hist-Other [facility] Social History [...]
--- OUTSIDE RECORDS SUMMARY | 2019-08-27 21:01 | XMS REPORT | Encounter Summary ---
Author Author [facility] Organization [facility] Address Unknown Phone Unavailable Care Team Providers Care Assistant Toddler Teacher Name Role Phone PCP Unavailable Encounter Details Care Team Description Date Type Department Andres Maki MD [address] [facility] [address] [place] [address] [phone] 06/26/2012 [facility] - Encounter [id number] [facility] 08/04/2012 [place] [address] Social History Date Tobacco Use Types Packs/Day [...]
--- OUTSIDE RECORDS SUMMARY | 2019-08-27 21:01 | XMS REPORT | Encounter Summary ---
Author Author [facility] Organization [facility] Address Unknown Phone Unavailable Care Team Providers Care Investment Fund Manager Name Role Phone Leanne Xiong PCP Unavailable Encounter Details Care Team Description Date Type Department 10/04/2012 Hist-Appointmen [facility] t Social [...]
--- OUTSIDE RECORDS SUMMARY | 2019-08-27 21:01 | XMS REPORT | Encounter Summary ---
Author Author [facility] Organization [facility] Address Unknown Phone Unavailable Care Team Providers Care Range Rider Name Role Phone Leanne Xiong PCP Unavailable Encounter Details Care Team Description Date Type Department Caio June MD [address] [facility] [address] [place] [address] [phone] 06/26/2012 Hist-Other [facility] Social History Date Tobacco Use Types Packs/Day Years Used Never Assessed Sex Assigned at Date Recorded Not on file Industry Job Start Date Occupation Not on file Not on file Not on file Travel End Travel History Travel Start No recent travel history available. 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 Traylor. I'm worried he's not pursuing a solution for his knee pain. It appears he saw Dr. Bowling once, but can you fi nd out if he had his MRI and saw him again for a followup visit? I will provide one final prescription for vicodin, but no more unless he pursues a treatment (n ot just narcotics). Juany Katz - 25 Jun 2012 4:51 PM He is going to call Dr. Bowling tomorrow morning to f/u and see what he recommends . CAIO JUNE - 25 Jun 2012 5:52 PM Did he get the MRI? Lennie Becerra - 26 Jun 2012 8:40 AM TASK REASSIGNED: Previously Assigned To Juany Katz Kimberly - 26 Jun 2012 10:05 AM Pt indicates that he has not done his MRI yet. Pt says he's trying to reschedul e the MRI with Dr Bowling's office. He says that he[facility] Lennie Becerra - 26 Jun 2012 10:15 AM Please see previous msg also. Pt indicates he's still having trouble sleeping and will actually fall asleep du ring the day. I asked him if he got his sleep study done and he indicates he mcknight s not yet; sleep lab needs new order. I let him know I could fax over a new ord er for him. Pt says he'll call them now to schedule that. Pt indicates he want s f/u appt with you, so I scheduled him at your next availabe - 07/10/11. Pt says that's soon enough and he'll see us then. Electronically signed by:CAIO JUNE M.D. Jun 26 2012 12:57PM COSTUMED CHARACTER ENTERTAINER Co-author [employer] CHARACTER ENTERTAINER documented in this encounter Plan of Treatment Not on filedocumented as of this encounter Visit Diagnoses Not on filedocumented in this encounter
--- OUTSIDE RECORDS SUMMARY | 2019-08-27 21:01 | XMS REPORT | Encounter Summary ---
Author Author [facility] Organization [facility] Address Unknown Phone Unavailable Care Team Providers Care Standards Analyst Name Role Phone PCP Unavailable Encounter Details Care Team Description Date Type Department Leanne Xiong MD 01/17/2013 [facility] Hospit al Encounter [id number] [place] [address] Social History Date Tobacco Use Types Packs/Day [...] Procedure Name Priority Date/Time Associated Diag nosis MICROALBUMIN RANDOM Routine 01/17/2013 12:21 PM CDT VITAMIN D, 25-HYDROXY Routine 01/17/2013 12:21 PM CDT LIPID PANEL Routine 01/17/2013 12:21 PM CDT HEMOGLOBIN A1C Routine 01/17/2013 12:21 PM CDT COMPREHENSIVE METABOLIC Routine 01/17/2013 PANEL 12:21 PM CDT documented in this encounter Results * Hemoglobin A1C (01/17/2013 12:21 PM CDT) HEMOGLOBIN A1C 7.4 (H) 4.0 - 5.6 % [facility] Comment: Non-diabetic 4.0 - 5.6 % Prediabetes 5.7 - 6.4 % Diabetes >= 6.5 % Specimen Blood Performing Organization Address [facility] Number [facility] [address] [place], [place] [address] [facility] * Microalbumin Random (01/17/2013 12:21 PM CDT) Creatinine 89.5 MG/DL [facility] Urine Random Microalbumin/Cr Not CalcComment: Microalbumin 0.00 - 16.00 UG /MG [facility] eatinine Ratio is too low to be measured. Calculation cannot be performed Microalbumin <0.50 MG/DL [facility] mg/dl Specimen Urine Performing Organization Address [facility] Number RL [address] [place], [place] [address] [facility] * Comprehensive Metabolic Panel (01/17/2013 12:21 PM CDT) Albumin 4.3 3.5 - 5.0 G/DL [facility] Aspartate 31 15 - 46 IU/L [facility] Aminotransferas e Bilirubin Total 0.7 0.2 - 1.3 MG/DL [facility] Protein Total 7.9 6.0 - 8.2 G/DL [facility] Serum Calcium 10.2 8.4 - 10.2 MG/DL [facility] Creatinine 1.1 0.6 - 1.3 MG/DL [facility] Glucose 102 (H) 70 - 100 MG/DL [facility] Alkaline 84 42 - 140 IU/L [facility] Phosphatase Sodium 147 133 - 147 MEQ/L [facility] Potassium 5.2Comment: Potassium 3.5 - 5.3 MEQ/L [facility] reference interval changed on 12/04/2012. Chloride 108 96 - 112 MEQ/L [facility] Carbon Dioxide 25 20 - 30 MEQ/L [facility] Blood Urea 18 7 - 26 MG/DL [facility] Nitrogen Anion Gap 14 5 - 17 [facility] Alanine 43 13 - 69 IU/L [facility] Aminotransferas e eGFR Male 72 [facility] Non-AA Comment: Chronic Kidney Disease less than 60 mL/min/1.73 sq.m Kidney failure less than 15 mL/min/1.73 sq.m eGFR Male AA 87 [facility] Comment: Chronic Kidney Disease less than 60 mL/min/1.73 sq.m Kidney failure less than 15 mL/min/1.73 sq.m Specimen Blood Performing Organization Address [facility] one Number [facility] [address] [place] [phone] [facility] * Lipid Panel (01/17/2013 12:21 PM CDT) Cholesterol 153 100 - 200 MG/DL [facility] Triglycerides 279 (H) 0 - 150 MG/DL [facility] HDL Cholesterol 20 (L) 40 - 110 MG/DL [facility] LDL Cholesterol 77 0 - 99 MG/DL [facility] Cholesterol/HDL 7.7 (H) 0.0 - 4.5 [facility] Ratio Hours 12 [facility] Postprandial Non-HDL 133 (H) 0 - 130 MG/DL [facility] Cholesterol Specimen Blood Performing Organization Address [facility] one Number [facility] [address] [place], [place] [address] [facility] * Vitamin D, 25-Hydroxy (01/17/2013 12:21 PM CDT) Vitamin D 24 NG/ML [facility] 25-Hydroxy Comment: Vitamin D 25-Hydroxy: Severe deficiency < 13 ng/mL Mild to moderate deficiency 13 - 24 ng/mL Optimum level 25 - 80 ng/mL Toxicity possible >80 ng/mL Specimen Blood Performing Organization Address [facility] one Number [facility] [address] [place], [place] [address] [facility] documented in this encounter Visit Diagnoses Not on filedocumented in this encounter
--- OUTSIDE RECORDS SUMMARY | 2019-08-27 21:01 | XMS REPORT | Encounter Summary ---
Author Author [facility] Address Unknown Phone Unavailable Care Team Providers Care Potash Flaker Name Role Phone Leanne Xiong PCP Unavailable Encounter Details Care Team Description Date Type Department Leanne Xiong MD 10/07/2012 Allscripts Note [facility] Primar y Care - [address] [place], [place] [id number] Social History Date Tobacco Use Types Packs/Day Years Used Never Assessed Sex Assigned at Date Recorded Not on file Industry Job Start Date Occupation Not on file Not on file Not on file Travel End Travel History Travel Start No recent travel history available. documented as of this encounter Miscellaneous Notes * Miscellaneous - Leanne Xiong MD - 10/07/2012 2:06 PM CDT Verified Results Collected/Examined: Oct 04, 2012 2:12PM Test Result Flag Acceptable Hemoglobin A1C 7.6 A Collected/Examined: Oct 04, 2012 10:18AM Test Result Flag Acceptable CBC with Diff WHITE BLOOD CELL COUNT 7.11 TH/uL 4.00-11.00 Red Blood Cell Count 5.23 MIL/uL 4.31-5.84 Hemoglobin 15.2 g/dL 13.0-17.0 Hematocrit 45 % 40-50 Mean Corpuscular Volume 86 fL 80-99 Mean Corpuscular Hgb 29 pg 27-34 Mean Corpuscular Hgb Conc 34 % 32-36 Red Cell Distribution Width 13.7 % 9.0-14.5 Platelet Count 266 TH/uL 140-400 Mean Platelet Volume 10.7 fL 9.4-12.3 % Segmented Neutrophils, Auto 41 % L 45-78 % Lymphocytes, Auto 45 % 15-47 % Monocytes, Auto 9 % 0-12 % Eosinophils, Auto 5 % 0-7 % Basophils, Auto 1 % 0-2 # Grans 2.89 TH/uL 1.70-6.80 # Lymphs 3.18 TH/uL 1.00-3.30 # Monos 0.63 TH/uL 0.20-0.90 # Eos 0.35 TH/uL 0.00-0.40 # Basos 0.06 TH/uL 0.00-0.10 Lipid Profile Hours Post Prandial 12 H Cholesterol Lipid Prof 130 mg/dL 100-200 Triglycerides 296 mg/dL H 0-150 Hdl 19 mg/dL L 40-110 Ldl Cholesterol 52 mg/dL 0-99 Total Cholesterol/Hdl Ratio 6.8 H 0.0-4.5 Non- HDL Cholesterol 111 mg/dL 0-130 CMP-Comprehensive Metabolic Panel Albumin 4.2 g/dL 3.5-5.0 Aspartate Aminotransferase 32 IU/L 15-46 Alanine Aminotransferase 52 IU/L 13-69 Bilirubin Total 0.7 mg/dL 0.2-1.3 Protein Total Serum 7.3 g/dL 6.0-8.2 Calcium 9.1 mg/dL 8.4-10.2 Creatinine 1.1 mg/dL 0.6-1.3 Glucose 127 mg/dL H 70-100 Alkaline Phosphatase 91 IU/L 42-140 Sodium 144 MEQ/L 133-147 Potassium 4.7 MEQ/L 3.5-5.1 Chloride 105 MEQ/L 96-112 Anion Gap 12 5-17 Blood Urea Nitrogen 16 mg/dL 7-26 Carbon Dioxide 27 MEQ/L 20-30 Gfrm Aa 87 Chronic Kidney Disease less than 60 mL/min/1.73 sq.m^^ Kidney failure less than 15 mL/min/1.73 sq.m^^ Gfrm Non Aa 72 Chronic Kidney Disease less than 60 mL/min/1.73 sq.m^^ Kidney failure less than 15 mL/min/1.73 sq.m^^ Thyroid Stimulating Hormone 2.67 uIU/mL 0.47-4.68 Vitamin D 25-Hydroxy 19 ng/mL Vitamin D 25-Hydroxy:^^ Severe deficiency < 13 ng/mL^^ Mild to moderate deficiency 13 - 24 ng/mL^^ Optimum level 25 - 80 ng/mL^^ Toxicity possible >80 ng/mL^^ Discussion/Summary sugar is in the diabetic range. Advise to refer to ophtho, visual merchandising assistant and bleach range operator. Add januvia 100 mg daily and recheck A1c in 3 months. Vitamin D is l ow, advise 50,000 units once a week for 12 weeks and then recheck a level. Trigl ycerides are elevated. Add fish oil daily and recheck lipids in 12 weeks. * Miscellaneous - Leanne Xiong MD - 10/07/2012 2:06 PM CDT Verified Results Collected/Examined: Oct 04, 2012 2:12PM Test Result Flag Acceptable Hemoglobin A1C [Oct 07, 2012 2:06PM LEANNE XIONG] sugar is in the diabetic range. Advise to refer to ophtho, visual merchandising assistant and bleach range operator. Add januvia 100 mg daily and recheck A1c in 3 months. Vitamin D is l ow, advise 50,000 units once a week for 12 weeks and then recheck a level. Trigl ycerides are elevated. Add fish oil daily and recheck lipids in 12 weeks. Hemoglobin A1C 7.6 A Collected/Examined: Oct 04, 2012 10:18AM Test Result Flag Acceptable CBC with Diff [Oct 07, 2012 2:06PM LEANNE XIONG] sugar is in the diabetic range. Advise to refer to ophtho, visual merchandising assistant and bleach range operator. Add januvia 100 mg daily and recheck A1c in 3 months. Vitamin D is l ow, advise 50,000 units once a week for 12 weeks and then recheck a level. Trigl ycerides are elevated. Add fish oil daily and recheck lipids in 12 weeks. WHITE BLOOD CELL COUNT 7.11 TH/uL 4.00-11.00 Red Blood Cell Count 5.23 MIL/uL 4.31-5.84 Hemoglobin 15.2 g/dL 13.0-17.0 Hematocrit 45 % 40-50 Mean Corpuscular Volume 86 fL 80-99 Mean Corpuscular Hgb 29 pg 27-34 Mean Corpuscular Hgb Conc 34 % 32-36 Red Cell Distribution Width 13.7 % 9.0-14.5 Platelet Count 266 TH/uL 140-400 Mean Platelet Volume 10.7 fL 9.4-12.3 % Segmented Neutrophils, Auto 41 % L 45-78 % Lymphocytes, Auto 45 % 15-47 % Monocytes, Auto 9 % 0-12 % Eosinophils, Auto 5 % 0-7 % Basophils, Auto 1 % 0-2 # Grans 2.89 TH/uL 1.70-6.80 # Lymphs 3.18 TH/uL 1.00-3.30 # Monos 0.63 TH/uL 0.20-0.90 # Eos 0.35 TH/uL 0.00-0.40 # Basos 0.06 TH/uL 0.00-0.10 Lipid Profile [Oct 07, 2012 2:06PM LEANNE XIONG R] sugar is in the diabetic range. Advise to refer to opho, visual merchandising assistant and bleach range operator. Add januvia 100 mg daily and recheck A1c in 3 months. Vitamin D is l ow, advise 50,000 units once a week for 12 weeks and then recheck a level. Trigl ycerides are elevated. Add fish oil daily and recheck lipids in 12 weeks. Hours Post Prandial 12 H Cholesterol Lipid Prof 130 mg/dL 100-200 Triglycerides 296 mg/dL H 0-150 Hdl 19 mg/dL L 40-110 Ldl Cholesterol 52 mg/dL 0-99 Total Cholesterol/Hdl Ratio 6.8 H 0.0-4.5 Non- HDL Cholesterol 111 mg/dL 0-130 CMP-Comprehensive Metabolic Panel [Oct 07, 2012 2:06PM LEANNE XIONG R] sugar is in the diabetic range. Advise to refer to opho, visual merchandising assistant and bleach range operator. Add januvia 100 mg daily and recheck A1c in 3 months. Vitamin D is l ow, advise 50,000 units once a week for 12 weeks and then recheck a level. Trigl ycerides are elevated. Add fish oil daily and recheck lipids in 12 weeks. Albumin 4.2 g/dL 3.5-5.0 Aspartate Aminotransferase 32 IU/L 15-46 Alanine Aminotransferase 52 IU/L 13-69 Bilirubin Total 0.7 mg/dL 0.2-1.3 Protein Total Serum 7.3 g/dL 6.0-8.2 Calcium 9.1 mg/dL 8.4-10.2 Creatinine 1.1 mg/dL 0.6-1.3 Glucose 127 mg/dL H 70-100 Alkaline Phosphatase 91 IU/L 42-140 Sodium 144 MEQ/L 133-147 Potassium 4.7 MEQ/L 3.5-5.1 Chloride 105 MEQ/L 96-112 Anion Gap 12 5-17 Blood Urea Nitrogen 16 mg/dL 7-26 Carbon Dioxide 27 MEQ/L 20-30 Gfrm Aa 87 Chronic Kidney Disease less than 60 mL/min/1.73 sq.m^^ Kidney failure less than 15 mL/min/1.73 sq.m^^ Gfrm Non Aa 72 Chronic Kidney Disease less than 60 mL/min/1.73 sq.m^^ Kidney failure less than 15 mL/min/1.73 sq.m^^ TSH-Thyroid Stimulating Hormone [Oct 07, 2012 2:06PM LEANNE XIONG] sugar is in the diabetic range. Advise to refer to ophtho, visual merchandising assistant and bleach range operator. Add januvia 100 mg daily and recheck A1c in 3 months. Vitamin D is l ow, advise 50,000 units once a week for 12 weeks and then recheck a level. Trigl ycerides are elevated. Add fish oil daily and recheck lipids in 12 weeks. Thyroid Stimulating Hormone 2.67 uIU/mL 0.47-4.68 Vitamin D, 25-Hydroxy [Oct 07, 2012 2:06PM LEANNE XIONG] sugar is in the diabetic range. Advise to refer to ophtho, visual merchandising assistant and bleach range operator. Add januvia 100 mg daily and recheck A1c in 3 months. Vitamin D is l ow, advise 50,000 units once a week for 12 weeks and then recheck a level. Trigl ycerides are elevated. Add fish oil daily and recheck lipids in 12 weeks. Vitamin D 25-Hydroxy 19 ng/mL Vitamin D 25-Hydroxy:^^ Severe deficiency < 13 ng/mL^^ Mild to moderate deficiency 13 - 24 ng/mL^^ Optimum level 25 - 80 ng/mL^^ Toxicity possible >80 ng/mL^^ Discussion/Summary sugar is in the diabetic range. Advise to refer to ophtho, visual merchandising assistant and bleach range operator. Add januvia 100 mg daily and recheck A1c in 3 months. Vitamin D is l ow, advise 50,000 units once a week for 12 weeks and then recheck a level. Trigl ycerides are elevated. Add fish oil daily and recheck lipids in 12 weeks. documented in this encounter Plan of Treatment Not on filedocumented as of this encounter Visit Diagnoses Not on filedocumented in this encounter
--- OUTSIDE RECORDS SUMMARY | 2019-08-27 21:01 | XMS REPORT | Encounter Summary ---
Author Author [facility] Organization [facility] Address Unknown Phone Unavailable Care Team Providers Care Drum Stenciler Name Role Phone PCP Unavailable Encounter Details Care Team Description Date Type Department Lawrence Ramsey MD [email or web address] [place] [address] [phone] 04/17/2012 [facility] Hospit al - Encounter [address] 05/19/2012 [place] [address] Social History Date Tobacco Use Types Packs/Day [...]
--- OUTSIDE RECORDS SUMMARY | 2019-08-27 21:01 | XMS REPORT | Encounter Summary ---
Author Author [facility] Organization [facility] Address Unknown Phone Unavailable Care Team Providers Care Press Operator Instant Print Shop Name Role Phone Leanne Xiong PCP Unavailable Encounter Details Care Team Description Date Type Department 01/14/2013 [facility] Social History Date Tobacco Use Types Packs/Day Years Used Never Assessed Sex Assigned at Date Recorded Not on file Industry Job Start Date Occupation Not on file Not on file Not on file Travel End Travel History Travel Start No recent travel history available. documented as of this encounter Progress Notes * ProviderJohanna MD - 01/14/2013 7:42 AM CDT Recorded as Task Date: 01/13/2013 03:39 PM, Created By: Sarah Kidd Task Name: FYI Assigned To: Sarah Kidd Regarding Patient: GIACOMO TRAYLOR, Status: Active Comment: Sarah Kidd - 13 Jan 2013 3:39 PM TASK CREATED Caller: Self; ; I called patient to reschedule his appointment from 9:00 a.m. on 01-17-2013 to al low more time. Pt states that he is unsure whether he can come later that day. Alexandra tee advised me to cancel his appointment altogether and he would have to call back to schedule. I had discussed with Aleta using a frozen slot to get him in at 1 1:30 and he states he can't come then. I offered to schedule him for the next we ek and he is unsure of his schedule at this point. LEANNE XIONG - 13 Jan 2013 5:04 PM TASK EDITED ok Sarah Kidd - 14 Jan 2013 7:42 AM TASK EDITED Electronically signed by:Sarah Kidd Jan 14 2013 7:43AM RING BARKER OPERATOR Author documented in this encounter Plan of Treatment Not on filedocumented as of this encounter Visit Diagnoses Not on filedocumented in this encounter
--- OUTSIDE RECORDS SUMMARY | 2019-08-27 21:01 | XMS REPORT | Encounter Summary ---
Author Author [facility] Organization [facility] Address Unknown Phone Unavailable Care Team Providers Care Coagulating Drying Supervisor Name Role Phone PCP Unavailable Encounter Details Care Team Description Date Type Department Darien Beltran MD [address] [place], [place] [id number] 10/28/2012 [facility] [address] [place] [address] Social History Date Tobacco Use Types Packs/Day [...]
--- OUTSIDE RECORDS SUMMARY | 2019-08-27 21:01 | XMS REPORT | Encounter Summary ---
Author Author [facility] Organization [facility] Address Unknown Phone Unavailable Care Team Providers Care Tutoring Assistant Name Role Phone Leanne Xiong PCP Unavailable Encounter Details Care Team Description Date Type Department Leanne Xiong MD 10/04/2012 Hist-Other [facility] Primar y Care - [address] [place], [place] [id number] Social History Date Tobacco Use Types Packs/Day [...] Procedure Name Priority Date/Time Associated Diag nosis HEMOGLOBIN A1C Routine 10/04/2012 2:12 PM CDT documented in this encounter Results * Hemoglobin A1C (10/04/2012 2:12 PM CDT) Hemoglobin A1C 7.6 (A) 0 OFFICE ENTERED Specimen Performing Organization Address City/State/Zipcode Ph one Number OFFICE ENTERED documented in this encounter Visit Diagnoses Not on filedocumented in this encounter
--- OUTSIDE RECORDS SUMMARY | 2019-08-27 21:02 | XMS REPORT | Encounter Summary ---
Author Author [facility] Organization [facility] Address Unknown Phone Unavailable Care Team Providers Care Linux System Engineer Name Role Phone Leanne Xiong PCP Unavailable Encounter Details Care Team Description Date Type Department Lawrence Ramsey MD [address] [facility] [facility] [address] [place] [address] [phone] 11/10/2011 [facility] [...]
--- OUTSIDE RECORDS SUMMARY | 2019-08-27 21:02 | XMS REPORT | Encounter Summary ---
Author Author [facility] Organization [facility] Address Unknown Phone Unavailable Care Team Providers Care Linux Devops Engineer Name Role Phone Leanne Xiong PCP Unavailable Encounter Details Care Team Description Date Type Department Caio June MD [address] [phone] 11/15/2011 All[facility] Note [facility] Primar y Care - [place] [address] [address] Social History Date Tobacco Use Types Packs/Day Years Used Never Assessed Sex Assigned at Date Recorded Not on file Industry Job Start Date Occupation Not on file Not on file Not on file Travel End Travel History Travel Start No recent travel history available. documented as of this encounter Miscellaneous Notes * Miscellaneous - Caio June MD - 11/15/2011 5:36 PM CDT Verified Results Collected/Examined: November 10, 2011 2:36PM Test Result Flag Acceptable CMP-Comprehensive Metabolic Panel Albumin 4.1 g/dL 3.5-5.0 Aspartate Aminotransferase 34 IU/L 15-46 Alanine Aminotransferase 39 IU/L 13-69 Bilirubin Total 0.6 mg/dL 0.2-1.3 Protein Total Serum 7.6 g/dL 6.0-8.2 Calcium 8.8 mg/dL 8.4-10.2 Creatinine 1.0 mg/dL 0.6-1.3 Glucose 76 mg/dL 70-100 Alkaline Phosphatase 119 IU/L 42-128 Sodium 144 MEQ/L 133-147 Potassium 4.5 MEQ/L 3.5-5.1 Chloride 106 MEQ/L 96-112 Anion Gap 12 3-15 Blood Urea Nitrogen 10 mg/dL 7-26 Carbon Dioxide 26 MEQ/L 22-30 Gfrm Aa 98 Chronic Kidney Disease less than 60 mL/min/1.73 sq.m^^ Kidney failure less than 15 mL/min/1.73 sq.m^^ Gfrm Non Aa 81 Chronic Kidney Disease less than 60 mL/min/1.73 sq.m^^ Kidney failure less than 15 mL/min/1.73 sq.m^^ CBC with Diff WHITE BLOOD CELL COUNT 7.93 TH/uL 4.00-11.00 Red Blood Cell Count 5.25 MIL/uL 4.31-5.84 Hemoglobin 15.3 g/dL 13.0-17.0 Hematocrit 45 % 40-50 Mean Corpuscular Volume 85 fL 80-99 Mean Corpuscular Hgb 29 pg 27-34 Mean Corpuscular Hgb Conc 34 % 32-36 Red Cell Distribution Width 13.4 % 9.0-14.5 Platelet Count 270 TH/uL 140-400 Mean Platelet Volume 9.9 fL 9.4-12.3 % Segmented Neutrophils, Auto 50 % 45-78 % Lymphocytes, Auto 39 % 15-47 % Monocytes, Auto 8 % 0-12 % Eosinophils, Auto 3 % 0-7 % Basophils, Auto 1 % 0-2 # Grans 3.94 TH/uL 1.70-6.80 # Lymphs 3.05 TH/uL 1.00-3.30 # Monos 0.63 TH/uL 0.20-0.90 # Eos 0.26 TH/uL 0.00-0.40 # Basos 0.05 TH/uL 0.00-0.10 Thyroid Stimulating Hormone 3.52 uIU/mL 0.47-4.68 Vitamin B12 573 pg/mL 239-931 Hemoglobin A1C 6.4 % H 4.0-5.6 Non-diabetic 4.0 - 5.6 %^^ Prediabetes 5.7 - 6.4 %^^ Diabetes >= 6.5 %^^ Vitamin D, 25 Hydroxy Vitamin D,25-Hydroxy D2 <5 ng/mL Vitamin D,25-Hydroxy D3 16 ng/mL Vitamin D,25-Hydroxy 16 ng/mL L 25-80 ^^ Test performed by [facility]^^ [address]^^ [place] [address]^^ ^^ Discussion/Summary Your fatigue investigation revealed normal blood counts, thyroid function, and v itamin B 12 level. However, we did find a low vitamin D level that needs correc ting. I recommend 3 months of weekly high-dose (50,000 iu) Vitamin D supplements . Then you'll continue with a daily 5,000 iu dose. I believe this will help your fatigue considerably. (These prescriptions have been sent to your [facility].) Of course, your sleep is likely responsible for your fatigue too. [address] st ay tuned for results from your sleep study. Your electrolytes, liver, and kidney tests were all normal. Your hemoglobin a1c test shows you have prediabetes. I believe youd benefit from metformin therapy to prevent progression to diabetes. Gladys sent this p rescription to the pharmacy too. It was a pleasure to see you in clinic, and I look forward to your next visit. If you have any questions, please don't hesitate to call us at . Sincerely, Caio June MD * Miscellaneous - Caio June MD - 11/15/2011 5:36 PM CDT Verified Results Collected/Examined: November 10, 2011 2:36PM Test Result Flag Acceptable CMP-Comprehensive Metabolic Panel [November 15, 2011 5:38PM CAIO JUNE] Vitamin D low. Almost-diabetic per A1c. Albumin 4.1 g/dL 3.5-5.0 Aspartate Aminotransferase 34 IU/L 15-46 Alanine Aminotransferase 39 IU/L 13-69 Bilirubin Total 0.6 mg/dL 0.2-1.3 Protein Total Serum 7.6 g/dL 6.0-8.2 Calcium 8.8 mg/dL 8.4-10.2 Creatinine 1.0 mg/dL 0.6-1.3 Glucose 76 mg/dL 70-100 Alkaline Phosphatase 119 IU/L 42-128 Sodium 144 MEQ/L 133-147 Potassium 4.5 MEQ/L 3.5-5.1 Chloride 106 MEQ/L 96-112 Anion Gap 12 3-15 Blood Urea Nitrogen 10 mg/dL 7-26 Carbon Dioxide 26 MEQ/L 22-30 Gfrm Aa 98 Chronic Kidney Disease less than 60 mL/min/1.73 sq.m^^ Kidney failure less than 15 mL/min/1.73 sq.m^^ Gfrm Non Aa 81 Chronic Kidney Disease less than 60 mL/min/1.73 sq.m^^ Kidney failure less than 15 mL/min/1.73 sq.m^^ CBC with Diff [November 15, 2011 5:38PM CAIO JUNE] Vitamin D low. Almost-diabetic per A1c. WHITE BLOOD CELL COUNT 7.93 TH/uL 4.00-11.00 Red Blood Cell Count 5.25 MIL/uL 4.31-5.84 Hemoglobin 15.3 g/dL 13.0-17.0 Hematocrit 45 % 40-50 Mean Corpuscular Volume 85 fL 80-99 Mean Corpuscular Hgb 29 pg 27-34 Mean Corpuscular Hgb Conc 34 % 32-36 Red Cell Distribution Width 13.4 % 9.0-14.5 Platelet Count 270 TH/uL 140-400 Mean Platelet Volume 9.9 fL 9.4-12.3 % Segmented Neutrophils, Auto 50 % 45-78 % Lymphocytes, Auto 39 % 15-47 % Monocytes, Auto 8 % 0-12 % Eosinophils, Auto 3 % 0-7 % Basophils, Auto 1 % 0-2 # Grans 3.94 TH/uL 1.70-6.80 # Lymphs 3.05 TH/uL 1.00-3.30 # Monos 0.63 TH/uL 0.20-0.90 # Eos 0.26 TH/uL 0.00-0.40 # Basos 0.05 TH/uL 0.00-0.10 TSH-Thyroid Stimulating Hormone [November 15, 2011 5:38PM CAIO JUNE] Vitamin D low. Almost-diabetic per A1c. Thyroid Stimulating Hormone 3.52 uIU/mL 0.47-4.68 Vitamin B12 [November 15, 2011 5:38PM CAIO JUNE] Vitamin D low. Almost-diabetic per A1c. Vitamin B12 573 pg/mL 239-931 Hemoglobin A1C [November 15, 2011 5:38PM CAIO JUNE] Vitamin D low. Almost-diabetic per A1c. Hemoglobin A1C 6.4 % H 4.0-5.6 Non-diabetic 4.0 - 5.6 %^^ Prediabetes 5.7 - 6.4 %^^ Diabetes >= 6.5 %^^ Vitamin D, 25 Hydroxy [November 15, 2011 5:38PM CAIO JUNE] Vitamin D low. Almost-diabetic per A1c. Vitamin D,25-Hydroxy D2 <5 ng/mL Vitamin D,25-Hydroxy D3 16 ng/mL Vitamin D,25-Hydroxy 16 ng/mL L 25-80 ^^ Test performed by [facility]^^ [address]^^ [place] [address]^^ ^^ Discussion/Summary Your fatigue investigation revealed normal blood counts, thyroid function, and v itamin B 12 level. However, we did find a low vitamin D level that needs correc ting. I recommend 3 months of weekly high-dose (50,000 iu) Vitamin D supplements . Then you'll continue with a daily 5,000 iu dose. I believe this will help your fatigue considerably. (These prescriptions have been sent to your [facility].) Of course, your sleep is likely responsible for your fatigue too. [facility] st ay tuned for results from your sleep study. Your electrolytes, liver, and kidney tests were all normal. Your hemoglobin a1c test shows you have prediabetes. I believe youd benefit from metformin therapy to prevent progression to diabetes. Gladys sent this p rescription to the pharmacy too. It was a pleasure to see you in clinic, and I look forward to your next visit. If you have any questions, please don't hesitate to call us at . Sincerely, Caio June MD documented in this encounter Plan of Treatment Not on filedocumented as of this encounter Visit Diagnoses Not on filedocumented in this encounter
--- OUTSIDE RECORDS SUMMARY | 2019-08-27 21:02 | XMS REPORT | Encounter Summary ---
Author Author [facility] Organization [facility] Address Unknown Phone Unavailable Care Team Providers Care Coil Repair Technician Name Role Phone Leanne Xiong PCP Unavailable Encounter Details Care Team Description Date Type Department Leanne Xiong MD 11/15/2011 [facility]Other [facility] Social History [...]
--- OUTSIDE RECORDS SUMMARY | 2019-08-27 21:02 | XMS REPORT | Encounter Summary ---
Author Author [facility] Organization [facility] Address Unknown Phone Unavailable Care Team Providers Care Athletics Teacher Name Role Phone PCP Unavailable Encounter Details Care Team Description Date Type Department Ezra Maki 03/13/2012 [facility] Hospit al - Encounter [address] 04/17/2012 [place] [address] Social History Date Tobacco Use Types Packs/Day [...]
--- OUTSIDE RECORDS SUMMARY | 2019-08-27 21:02 | XMS REPORT | Encounter Summary ---
Author Author [facility] Organization [facility] Address Unknown Phone Unavailable Care Team Providers Care Mattress Stripper Name Role Phone Leanne Xiong PCP Unavailable Encounter Details Care Team Description Date Type Department Caio June MD [address] [phone] 03/05/2012 Allscripts Note [facility] Primar y Care - [place] [address] [address] Social History Date Tobacco Use Types Packs/Day Years Used Never Assessed Sex Assigned at Date Recorded Not on file Industry Job Start Date Occupation Not on file Not on file Not on file Travel End Travel History Travel Start No recent travel history available. documented as of this encounter Miscellaneous Notes * Miscellaneous - Caio June MD - 03/05/2012 6:48 AM CDT Verified Results Collected/Examined: Mar 01, 2012 10:10AM Test Result Flag Acceptable Lipid Profile Hours Post Prandial 9 Cholesterol Lipid Prof 154 mg/dL 100-200 Triglycerides 349 mg/dL H 0-150 Hdl 22 mg/dL L 40-110 Ldl Cholesterol 62 mg/dL 0-99 Total Cholesterol/Hdl Ratio 7.0 H 0.0-4.5 Non- HDL Cholesterol 132 mg/dL H 0-130 Discussion/Summary Your LDL cholesterol is doing well on simvastatin, but your triglycerides are st ill too high. I recommend adding fenofibrate daily. I've sent this prescription to your [facility] pharmacy. It was a pleasure to see you in clinic, and I look forward to your next visit. I f you have any questions, please don't hesitate to call us at . Sincerely, Caio June MD * Miscellaneous - aCio June MD - 03/05/2012 6:48 AM CDT Verified Results Collected/Examined: Mar 01, 2012 10:10AM Test Result Flag Acceptable Lipid Profile [Mar 05, 2012 6:49AM CAIO JUNE] LDL good, triglycerides bad. Add fenofibrate tx. Hours Post Prandial 9 Cholesterol Lipid Prof 154 mg/dL 100-200 Triglycerides 349 mg/dL H 0-150 Hdl 22 mg/dL L 40-110 Ldl Cholesterol 62 mg/dL 0-99 Total Cholesterol/Hdl Ratio 7.0 H 0.0-4.5 Non- HDL Cholesterol 132 mg/dL H 0-130 Discussion/Summary Your LDL cholesterol is doing well on simvastatin, but your triglycerides are st ill too high. I recommend adding fenofibrate daily. I've sent this prescription to your [facility] pharmacy. It was a pleasure to see you in clinic, and I look forward to your next visit. I f you have any questions, please don't hesitate to call us at . Sincerely, Caio June MD documented in this encounter Plan of Treatment Not on filedocumented as of this encounter Visit Diagnoses Not on filedocumented in this encounter
--- OUTSIDE RECORDS SUMMARY | 2019-08-27 21:02 | XMS REPORT | Encounter Summary ---
Author Author [facility] Organization [facility] Address Unknown Phone Unavailable Care Team Providers Care Electronic Typesetting Machine Operator Name Role Phone Leanne Xiong PCP Unavailable Encounter Details Care Team Description Date Type Department Lawrence Ramsey MD [address] [facility] [address] [place] [address] [phone] 06/16/2011 [facility] [...] Signs Reading Time Taken Comments Vital Sign 132/92 06/16/2011 1:40 PM STAFFING OPERATIONS MANAGER Blood Pressure 66 06/16/2011 1:40 PM STAFFING OPERATIONS MANAGER Pulse - - Temperature - - Respiratory Rate - - Oxygen Saturation - - Inhaled Oxygen Concentration 114.9 kg (253 lb 3.2 oz) 06/16/2011 1:40 PM STAFFING OPERATIONS MANAGER undetermine d Weight 167.6 cm (5' 6") 06/16/2011 1:40 PM STAFFING OPERATIONS MANAGER Height 40.87 06/16/2011 1:40 PM STAFFING OPERATIONS MANAGER Body Mass Index documented in this encounter Progress Notes * Lawrence Ramsey MD - 06/16/2011 1:30 PM STAFFING OPERATIONS MANAGER [facility] [address] [place] [address] June 16, 2011 Dawsno Hermosillo MD [address] [place] [address] RE: GIACOMO TRAYLOR : 1965 Chart #: [id number] Visit provider: Cheli Ramsey M.D. Visit location: [facility] Dear Dr. Hermosillo: I had the pleasure of seeing GIACOMO TRAYLOR in the office today. He is 45 ye ars of age and presents with the following chief complaints: chest pain, establ gege care. HPI: This patient is planning to establish care with you within the next or so. I sa w this patient today. He comes here to establish care. We did see him in 01/16 w hen he was hospitalized with a type B aortic dissection. He had been on a fairl y good regimen for control of his hypertension and dyslipidemia; however, on his own volition, he stopped all his medications several weeks ago after an episode of depression / self-pity. From the cardiovascular standpoint, he is having some episodes of chest discomfo rt. These do not appear to be exertional in nature. They last for 15 20 mi nutes at a time. They are a burning, pressure-like sensation. He is also havin g some pain in his right leg, which was the entry site for placement of his endo vascular stent. Problem List: 01/06/2011 Type B Aortic Dissection 06/16/2011 Dyslipidemia Hypertension Morbid obesity 01/19/2011 PVD Thoracic aneurysm repair Thoracic aneurysm repair -Type B thoraci c aortic dissection versus perforation penetrating ulcer in the mid descending t horacic aorta. Deployment of a TAG stent graft in the descending thoracic aorta (10 cm x 26 mm). Tobacco Abuse Current Past Medical History: GERD Anxiety Morbid Obesity Final Medications: Hydrocodone Bit/acetaminophen 7.5-325mg take 1 tablet by oral route every 6 jena rs as needed for pain Ibuprofen 600 Mg take 1 tablet (600MG) by oral route every day with food PRN Simvastatin 20 Mg take 1 tablet (20MG) by oral route every day in the evening Carvedilol 6.25 Mg take 1 tablet (6.25MG) by oral route 2 times every day with food Allergies/Intolerances: No Known Allergies Family History: Father Cause of was Liver disease at age 67. Mother Cause of was [place] at age 50. Social History: Marital Status: Single Children: 4 Occupation: Retired Diet: Regular Exercise: Occasional walk Smoking: Current smoker of 1.50 packs per day for 25.00 years. Alcohol: Does not drink Caffeine: Caffeine use: 12 oz. occasionally of soda ROS: 12-point review of systems is negative with the following exceptions: Pulmonary: Snore, Sleep apnea Cardiovascular: Chest Discomfort, lightheaded when he wakes up only Neuro: Numbness/Weakness Musculoskeletal/Dermatology: Myalgias, Arthralgias Physical Exam: Vital Signs The patient is 5ft 6in tall, and weighs 253.20lbs. Blood pressure ta vivian in the left arm is 132/92 mmHg in the sitting position. The pulse is 66. The rhythm is regular. Const The patient [...] abdominal tenderness to palpation. There is no hepatomeg jaleel. There is no splenomegaly. The abdominal aorta is of normal size. No abdominal masses are present on palpation. EXT The extremities are warm to touch. No clubbing is present. No cyanosis is observed. There is no edema noted. Skin The skin is warm. No psoriasis is noted. There are no rashes present. M/S The patient's gait is normal. No joint or spine deformities are noted. Neuro/Psych The patient is alert and oriented to time, person and place. No hem iparesis is present. There is no facial droop detected. The patient's mood is normal. No aphasia is apparent by exam. Cranial nerves II through XII are intact. EKG: Rhythm: Sinus AV Conduction: Left anterior fascicular block QRS [place] and Voltage: Poor R wave progression Most Recent Lipids Available for Review: Date Collected: 01/10/2011 Total Cholesterol: 126 HDL: 13 LDL: 64 Triglycerides: 244 Ratio: 9.69 Glucose: 111 Impression and Plan: 1. Systemic hypertension: He was on high doses of carvedilol, as well as lisino pril. Since that time, he has lost some weight and I have, therefore, started i t at a lower dose of carvedilol, namely 6.25 mg twice daily and plan to have him return in a week or so to assess the effect of introduction of this and see whe ther we can advance the carvedilol, or possibly add back in the angiotensin conv erting enzyme inhibitor. 2. Chest pain syndrome: It is unclear what this patients symptoms of chest p ain are due to. I do think we need to exclude underlying coronary artery diseas e as a cause. I made arrangements for him to have a pharmacologic stress myocar dial perfusion imaging study. 3. Dyslipidemia: I have restarted him back on his previous dose of simvastatin 20 mg daily and we will need to repeat a fasting lipid profile in approximately six weeks from now. 4. Type B aortic dissection: Status post repair with placement of a TAG stent g raft to the descending aorta, placed by Dr. Lenin Romero, 01/19/11. 5. Morbid obesity: I did talk about the importance of continued weight reductio n. 6. Tobacco abuse: He is aware of the need to completely quit smoking at this ti me. 7. I will be in communication with you again once we have the results of his str ess myocardial perfusion imaging study. Testing ordered: Description Interval Sleep study First Available SPECT Pharmacologic MPI First Available Follow up: Cheli Ramsey M.D. 14 Days Thank you for allowing me to participate in GIACOMO TRAYLOR's care. If I can be of any further assistance, please do not hesitate to contact me. Sincerely, Cheli Ramsey M.D. AIM/bem/ct Addendum: Possible sleep apnea. I have made arrangements for him to have a sleep study. cc: Andres Maki MD [address] [place] [phone] 06/16/2011 3:30 PM 06/23/2011 5:09 AM F: 06/16/2011 06/23/2011 FING OPERATIONS MANAGER documented in this encounter Plan of Treatment Not on filedocumented as of this encounter Visit Diagnoses Not on filedocumented in this encounter
--- OUTSIDE RECORDS SUMMARY | 2019-08-27 21:02 | XMS REPORT | Encounter Summary ---
Author Author [facility] Organization [facility] Address Unknown Phone Unavailable Care Team Providers Care Lumber Straightened Name Role Phone PCP Unavailable Encounter Details Care Team Description Date Type Department Andres Maki MD [address] [id number] 03/01/2012 [facility] Encounter [address] [place] [address] Social History Date Tobacco Use Types Packs/Day [...] 3 TIMES DAILY NEEDED. MAY CAUSE DROWSINESS. 06/16/2011 02/10/2015 carvedilol (COREG) 6.25 take 1 tablet 60 11 MG tablet (6.25MG) by oral route 2 times every day with food 09/17/2012 02/10/2015 cetirizine (ZYRTEC) 10 MG TAKE 1 TABLET 30 0 tablet DAILY. 02/10/2015 fenofibrate micronized take 1 [...] Date/Time Associated Diag nosis LIPID PANEL Routine 03/01/2012 10:10 AM CDT documented in this encounter Results * Lipid Panel (03/01/2012 10:10 AM CDT) Cholesterol 154 100 - 200 MG/DL [facility] Triglycerides 349 (H) 0 - 150 MG/DL [facility] HDL Cholesterol 22 (L) 40 - 110 MG/DL [facility] LDL Cholesterol 62 0 - 99 MG/DL [facility] Cholesterol/HDL 7.0 (H) 0.0 - 4.5 [facility] Ratio Hours 9 [facility] Postprandial Non-HDL 132 (H) 0 - 130 MG/DL [facility] Cholesterol Specimen Blood Performing Organization Address City/State/[facility] Ph one Number [facility] [address] [place], [place] [address] [facility] documented in this encounter Visit Diagnoses Not on filedocumented in this encounter
--- OUTSIDE RECORDS SUMMARY | 2019-08-27 21:02 | XMS REPORT | Encounter Summary ---
Author Author [facility] Organization [facility] Address Unknown Phone Unavailable Care Team Providers Care Insurance Administrative Assistant Name Role Phone PCP Unavailable Encounter Details Care Team Description Date Type Department Maya Paez MD [address] [facility] [address] [place] [address] [phone] 04/05/2012 [facility] al Encounter Social History Date Tobacco Use Types Packs/Day [...]
--- OUTSIDE RECORDS SUMMARY | 2019-08-27 21:02 | XMS REPORT | Encounter Summary ---
Author Author [facility] Organization [facility] Address Unknown Phone Unavailable Care Team Providers Care Pillowcase Maker Name Role Phone Leanne Xiong PCP Unavailable Encounter Details Care Team Description Date Type Department Maya Paez MD [address] [facility] [address] [place] [address] [phone] 04/05/2012 Hist-Appointmen [facility] t Social History Date Tobacco Use Types Packs/Day Years Used Never Assessed Sex Assigned at Date Recorded Not on file Industry Job Start Date Occupation Not on file Not on file Not on file Travel End Travel History Travel Start No recent travel history available. documented as of this encounter Progress Notes * Maya Paez MD - 04/05/2012 9:10 AM CDT Chief Complaint red rash on both lower legs. History of Present Illness 46 yo wm new pt referred by Dr. Andres Maki for red rash on both lower leg s-started out itching real bad, doesn't now, x 3 mo's, prescribed a cream using now, not sure working. Had aortic dissection and repair via right groin. TAC helping. Doesn't wear compression. 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 Review of Systems [facility] Review of Systems: Skin: negative. Cardiovascular: hypertension and disection of aorta 01/02/2011. Neurological: negative. Hematologic/Lymphatic: negative. Respiratory: negative. Psychiatric: negative. Constitutional: negative. Gastrointestinal: negative. Endocrine negative. Eyes, Ears, Nose, Throat negative. Musculoskeletal: negative. Infection: negative. Past Medical History 1. History of Cath Stent Placement Skin History: Skin History Previous skin cancer: None: . Family history of skin cancer: None . Previous sunburns: No. Tanning bed use: No. Sunscreen use: No. Current Meds 1. ALPRAZolam 0.5 MG Oral Tablet; TAKE 1 TABLET DAILY NEEDED; Therapy: 012 to (Evaluate:16Kou8230); Last Rx:10Nov2011 2. Carvedilol 12.5 MG Oral Tablet; TAKE 1 TABLET TWICE DAILY; Therapy: 10Nov2011 to (Evaluate:85Kmo1848) Requested for: 87Cap0359; Last Rx:[id number] 3. Cetirizine HCl 10 MG Oral Tablet; TAKE 1 TABLET DAILY; Therapy: 21Axa5429 to (Evaluate:81Gfz0703) Requested for: 63Tlw6385; Last Rx:[id number] 4. Chantix Continuing Month Billy 1 MG Oral Tablet; TAKE 1 TABLET TWICE DAILY; The rapy: 10Nov2011 to (Evaluate:30May2012) Requested for: 93Uxf8504; Last Rx:[id number] 5. Chantix Starting Month Billy 0.5 MG X 11 & 1 MG X 42 Oral Tablet; TAKE DIRECTED PER PACKAGE INSTRUCTIONS; Therapy: 10Nov2011 to (Last Rx:[id number]) Requested for: 08Ron1184 6. Fenofibrate 160 MG Oral Tablet; TAKE 1 TABLET DAILY; Therapy: 74Rhd4823 to (Evaluate:85Wof9070) Requested for: 51Nct2862; Last Rx:[id number] 7. Fluticasone Propionate 50 MCG/ACT Nasal Suspension; USE 2 SPRAYS IN EACH NOST RIL ONCE DAILY; Therapy: 59Wzu5390 to (Complete:20Pzq6238) Requested for: 10Heu637 2; Last Rx:[id number] 8. Hydrocodone-Acetaminophen 7.5-325 MG Oral Tablet; TAKE ONE TABLET EVERY 8 RIGOBERTO RS NEEDED FOR PAIN; Therapy: 93Reb2724 to (Evaluate:40Evx2576); Last Rx:07Mpe3484 9. Ibuprofen 800 MG Oral Tablet; TAKE 1 TABLET 3 TIMES DAILY NEEDED; Therapy: 10Nov2011 to (Evaluate:15May2012) Requested for: 29Qeh3378; Last Rx:60Ief1545 10. MetFORMIN HCl ER 500 MG Oral Tablet Extended Release 24 Hour; TAKE 1 TABLET DAILY; Therapy: 15Nov2011 to (Evaluate:02Nek5292) Requested for: 74Sxi4537; Last Rx: 23Upo2760 11. Simvastatin 20 MG Oral Tablet; TAKE 1 TABLET DAILY AT BEDTIME; Therapy: to (Evaluate:08May2012); Last Rx:10Pat3081 12. Triamcinolone Acetonide 0.5 % External Cream; APPLY SPARINGLY AND MASSAGE IN TWICE DAILY; Therapy: 16Agt8496 to (Evaluate:91Yco3620) Requested for: 02Ajc6946; L ast Rx:24Crm4131 13. Vitamin D (Ergocalciferol) 97472 UNIT Oral Capsule; TAKE ONE CAPSULE A WEEK FOR 3 MONTHS; Therapy: 15Nov2011 to (Last Rx:39Xsb7783) Requested for: 32Kba8711 14. Vitamin D3 5000 UNIT Oral Tablet; TAKE 1 TABLET DAILY; Therapy: 15Nov2011 to (Evaluate:64Lnf8006) Requested for: 98Gui3703; Last Rx:83Ptl1432 Allergies 1. 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 Discussed management options. RETURN VISIT: prn CC Andres Maki MD Amended By: Maya Paez; 04/05/2012 10:10 AMCST Signatures Electronically signed by : Maya Paez MD; Apr 05 2012 10:10AM (Author) Electronically signed by : Maya Paez MD; Apr 05 2012 10:10AM (Author) * Maya Paez MD - 04/05/2012 9:10 AM CDT Clinical Summary Patient Name : GIACOMO TRAYLOR Appointment Date: 04/05/2012 9:10:00 AM : [id number] : [address] 1965 [place] [address] : Current Medications ALPRAZolam 0.5 MG Oral Tablet; TAKE 1 TABLET DAILY NEEDED.; Days: 30; Qty: 30; Refill: 2 Carvedilol 12.5 MG Oral Tablet; TAKE 1 TABLET TWICE DAILY.; Days: 30; Qty: 60; Refill: 5 Cetirizine HCl 10 MG Oral Tablet; TAKE 1 TABLET DAILY.; Days: 30; Qty: 30; Ref ill: 5 Chantix Continuing Month Billy 1 MG Oral Tablet; TAKE 1 TABLET TWICE DAILY.; Day s: 30; Qty: 60; Refill: 2 Chantix Starting Month Billy 0.5 MG X 11 & 1 MG X 42 Oral Tablet; TAKE DIRECTED PER PACKAGE INSTRUCTIONS.; Days: 0; Qty: 1; Refill: 0 Fenofibrate 160 MG Oral Tablet; TAKE 1 TABLET DAILY.; Days: 30; Qty: 30; Refil l: 5 Fluticasone Propionate 50 MCG/ACT Nasal Suspension; USE 2 SPRAYS IN EACH NOSTR IL ONCE DAILY; Days: 30; Qty: 1; Refill: 5 Hydrocodone-Acetaminophen 7.5-325 MG Oral Tablet; TAKE ONE TABLET EVERY 8 HOUR S NEEDED FOR PAIN; Days: 30; Qty: 90; Refill: 1 Ibuprofen 800 MG Oral Tablet; TAKE 1 TABLET 3 TIMES DAILY NEEDED.; Days: 30 ; Qty: 90; Refill: 5 MetFORMIN HCl ER 500 MG Oral Tablet Extended Release 24 Hour; TAKE 1 TABLET DA FUNMILAYO; Days: 30; Qty: 30; Refill: 5 Simvastatin 20 MG Oral Tablet; TAKE 1 TABLET DAILY AT BEDTIME; Days: 30; Qty: 30; Refill: 5 Triamcinolone Acetonide 0.5 % External Cream; APPLY SPARINGLY AND MASSAGE IN T WICE DAILY.; Days: 30; Qty: 15; Refill: 5 Vitamin D (Ergocalciferol) 14305 UNIT Oral Capsule; TAKE ONE CAPSULE A WEEK FO R 3 MONTHS; Days: 0; Qty: 12; Refill: 0 Vitamin D3 5000 UNIT Oral Tablet; TAKE 1 TABLET DAILY.; Days: 30; Qty: 30; Ref ill: 11 Allergies No Known Drug Allergies Future Appointments 06/03/2012 8:00:00 AM,SLADE KEARNEY Document and Provider Details Document: Clinical Summary Provider: [place] Site: [facility] [address] [place] [address] Site * Maya Paez MD - 04/05/2012 9:10 AM CDT I had the pleasure of evaluating your patient, GIACOMO TRAYLOR. My full evalu ation follows: Amended By: Maya Paez; 04/05/2012 10:10 AMCST red rash on both lower legs. History of Present Illness 46 yo wm new pt referred by Dr. Andres Maki for red rash on both lower leg s-started out itching real bad, doesn't now, x 3 mo's, prescribed a cream using now, not sure working. Had aortic dissection and repair via right groin. TAC helping. Doesn't wear compression. 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 Review of Systems Skin: negative. Cardiovascular: hypertension and disection of aorta 01/02/2011. Neurological: negative. Hematologic/Lymphatic: negative. Respiratory: negative. Psychiatric: negative. Constitutional: negative. Gastrointestinal: negative. Endocrine negative. Eyes, Ears, Nose, Throat negative. Musculoskeletal: negative. Infection: negative. Current Meds 1. ALPRAZolam 0.5 MG Oral Tablet; TAKE 1 TABLET DAILY NEEDED; Therapy: 012 to (Evaluate:12Cdy2350); Last Rx:10Nov2011 2. Carvedilol 12.5 MG Oral Tablet; TAKE 1 TABLET TWICE DAILY; Therapy: 10Nov2011 to (Evaluate:06Tct5624) Requested for: 84Dzl5526; Last Rx:[id number] 3. Cetirizine HCl 10 MG Oral Tablet; TAKE 1 TABLET DAILY; Therapy: 74Vhl4405 to (Evaluate:33Yam3864) Requested for: 27Geg1097; Last Rx:[id number] 4. Chantix Continuing Month Billy 1 MG Oral Tablet; TAKE 1 TABLET TWICE DAILY; The rapy: 10Nov2011 to (Evaluate:30May2012) Requested for: 67Jpu1492; Last Rx:07Kup7414 5. Chantix Starting Month Billy 0.5 MG X 11 & 1 MG X 42 Oral Tablet; TAKE DIRECTED PER PACKAGE INSTRUCTIONS; Therapy: 10Nov2011 to (Last Rx:95Don1460) Requested for: 16Yoj5530 6. Fenofibrate 160 MG Oral Tablet; TAKE 1 TABLET DAILY; Therapy: 70Rfj4385 to (Evaluate:80Oyk2351) Requested for: 60Cyo1352; Last Rx:[id number] 7. Fluticasone Propionate 50 MCG/ACT Nasal Suspension; USE 2 SPRAYS IN EACH NOST RIL ONCE DAILY; Therapy: 01Mar2012 to (Complete:28Aug2012) Requested for: 74Afb363 2; Last Rx:66Rxk6000 8. Hydrocodone-Acetaminophen 7.5-325 MG Oral Tablet; TAKE ONE TABLET EVERY 8 RIGOBERTO RS NEEDED FOR PAIN; Therapy: 10Nov2011 to (Evaluate:13Bhc9186); Last Rx:90Euq8837 9. Ibuprofen 800 MG Oral Tablet; TAKE 1 TABLET 3 TIMES DAILY NEEDED; Therapy: 10Nov2011 to (Evaluate:15May2012) Requested for: 17Nov2011; Last Rx:59Jcj5507 10. MetFORMIN HCl ER 500 MG Oral Tablet Extended Release 24 Hour; TAKE 1 TABLET DAILY; Therapy: 15Nov2011 to (Evaluate:36Ukr1666) Requested for: 38Kvg0361; Last Rx: 15Ldi1650 11. Simvastatin 20 MG Oral Tablet; TAKE 1 TABLET DAILY AT BEDTIME; Therapy: to (Evaluate:08May2012); Last Rx:27Oze2435 12. Triamcinolone Acetonide 0.5 % External Cream; APPLY SPARINGLY AND MASSAGE IN TWICE DAILY; Therapy: 04Ped9020 to (Evaluate:30Gut6835) Requested for: 80Ynz9514; L ast Rx:97Ftp3980 13. Vitamin D (Ergocalciferol) 09387 UNIT Oral Capsule; TAKE ONE CAPSULE A WEEK FOR 3 MONTHS; Therapy: 15Nov2011 to (Last Rx:53Anr3793) Requested for: 80Upg5689 14. Vitamin D3 5000 UNIT Oral Tablet; TAKE 1 TABLET DAILY; Therapy: 42Dht8576 to (Evaluate:22Qyn5684) Requested for: 16Pxi7243; Last Rx:[id number] Allergies 1. No Known Drug Allergies Vitals Signs [Data Includes: Last 1 Day] No vital signs performed Results/Data Results [Data Includes: Last 1 Week] No recent results Physical Exam Skin-Body Areas General Appearence: Well developed & well nourished, Alert & Oriented, No Acute Distress and Pleasant Mood Complexion: Medium Left Leg: Examined, bilateral lower ext with discoloration and fine erythema Right Leg: Examined Assessment 1. 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 Discussed management options. RETURN VISIT: prn Thank you very much for allowing me to participate in the care of this patient. if you have any questions, please do not hesitate to contact me Amended By: Maya Red; 04/05/2012 10:10 AMCST CC Andres Maki MD Amended By: Maya Paez; 04/05/2012 10:10 AMCST Signatures Electronically signed by : Maya Paez MD; Apr 05 2012 10:10AM (Author) * Maya Paez MD - 04/05/2012 9:10 AM CDT Clinical Summary Patient Name : GIACOMO TRAYLOR Appointment Date: 04/05/2012 9:10:00 AM : [id number] : [address] Of 1965 [place] [address] : Assessed Problems Stasis Dermatitis Treatment Plan Continue TAC cream wear daily compression of 20mmHg continue weight loss regimen return as needed Discussed complications, risks and morbidity. Discussed management options. RETURN VISIT: prn Current Medications ALPRAZolam 0.5 MG Oral Tablet; TAKE 1 TABLET DAILY NEEDED.; Days: 30; Qty: 30; Refill: 2 Carvedilol 6.25 MG Oral Tablet; ; Days: 30; Qty: 60; Refill: 0 Cetirizine HCl 10 MG Oral Tablet; TAKE 1 TABLET DAILY.; Days: 30; Qty: 30; Ref ill: 5 Fenofibrate 160 MG Oral Tablet; TAKE 1 TABLET DAILY.; Days: 30; Qty: 30; Refil l: 5 Fluticasone Propionate 50 MCG/ACT Nasal Suspension; USE 2 SPRAYS IN EACH NOSTR IL ONCE DAILY; Days: 30; Qty: 1; Refill: 5 Hydrocodone-Acetaminophen 7.5-325 MG Oral Tablet; TAKE ONE TABLET EVERY 8 HOUR S NEEDED FOR PAIN; Days: 30; Qty: 90; Refill: 1 Ibuprofen 800 MG Oral Tablet; TAKE 1 TABLET 3 TIMES DAILY NEEDED.; Days: 30 ; Qty: 90; Refill: 5 MetFORMIN HCl ER 500 MG Oral Tablet Extended Release 24 Hour; TAKE 1 TABLET DA FUNMILAYO; Days: 30; Qty: 30; Refill: 5 Simvastatin 20 MG Oral Tablet; TAKE 1 TABLET DAILY AT BEDTIME; Days: 30; Qty: 30; Refill: 5 Triamcinolone Acetonide 0.5 % External Cream; APPLY SPARINGLY AND MASSAGE IN T WICE DAILY.; Days: 30; Qty: 15; Refill: 5 Vitamin D3 5000 UNIT Oral Tablet; TAKE 1 TABLET DAILY.; Days: 30; Qty: 30; Ref ill: 11 Allergies No Known Drug Allergies Future Appointments 06/03/2012 8:00:00 AM,SLADE KEARNEY Document and Provider Details Document: Clinical Summary Provider: Philippe Site: [facility] Site Address : [address] [place] [address] Site documented in this encounter Plan of Treatment Not on filedocumented as of this encounter Visit Diagnoses Not on filedocumented in this encounter
--- OUTSIDE RECORDS SUMMARY | 2019-08-27 21:02 | XMS REPORT | Encounter Summary ---
Author Author [facility] Organization [facility] Address Unknown Phone Unavailable Care Team Providers Care Transitional Living Specialist Name Role Phone Leanne Xiong PCP Unavailable Encounter Details Care Team Description Date Type Department Caio June MD [address] [address] [phone] 11/10/2011 Hist-Appointmen [facility] Social History Date Tobacco Use Types Packs/Day Years Used Never Assessed Sex Assigned at Date Recorded Not on file Industry Job Start Date Occupation Not on file Not on file Not on file Travel End Travel History Travel Start No recent travel history available. documented as of this encounter Last Filed Vital Signs Reading Time Taken Comments Vital Sign 140/96 11/10/2011 1:32 PM CDT Blood Pressure 88 11/10/2011 1:32 PM CDT Pulse - - Temperature - - Respiratory Rate - - Oxygen Saturation - - Inhaled Oxygen Concentration 120.2 kg (265 lb) 11/10/2011 1:32 PM CDT Weight 166.4 cm (5' 5.5") 11/10/2011 1:32 PM CDT Height 43.43 11/10/2011 1:32 PM CDT Body Mass Index documented in this encounter Progress Notes * Caio June MD - 11/10/2011 1:30 PM CDT Chief Complaint Chief Complaint: The patient presents to the office today with establishing care. History of Present Illness Mr. Traylor presents today, referred by case management specialist Dr. El Ramsey, to [facility]. 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 He has a history of coronary artery disease with stent placement in January 2011 a nd aortic dissection at the same time. He also has painful bilateral knees, hyp ertension, hyperlipidemia, obesity, and a working diagnosis of obstructive sleep apnea. He has been using Xanax periodically for anxiety, which also helps him with sleep. He describes intense daytime somnolence, nighttime snoring and pauses in breathi ng. He is not had the additional chest pain since his 21 day hospitalization in January 2011. He is trying to quit cigarette smoking and has cut back considerably. He does w gege to try a medicine that will help his willpower even further. Current Meds 1. Carvedilol 6.25 MG Oral Tablet; TAKE 1 TABLET TWICE DAILY; Therapy: 10Nov2011 to (Evaluate:08May2012) 2. Hydrocodone-Acetaminophen 7.5-325 MG Oral Tablet; TAKE 1 TABLET 4 TIMES A DAY ; Therapy: 10Nov2011 to (Evaluate:10Dec2011) 3. Ibuprofen 800 MG Oral Tablet; TAKE 1 TABLET 3 TIMES DAILY NEEDED; Therapy: 10Nov2011 to (Evaluate:08May2012) 4. Simvastatin 20 MG Oral Tablet; TAKE 1 TABLET DAILY AT BEDTIME; Therapy: 2011 to (Evaluate:[id number]) Allergies No Known Drug Allergies Vitals Signs [Data Includes: Last 1 Day] 10Nov2011 01:32PM BMI Calculated: 43.62 BSA Calculated: 2.24 Height: 5 ft 5.5 in Weight: 265 lb Systolic: 140 Diastolic: 96 Heart Rate: 88 Immunizations MMR --- Series1: Childhood Td/DT --- Series1: Approx 09Nov2002 Review of Systems Complete-Male ROS - [facility]: Constitutional, cardiovascular, pulmonary and skin rev iew of systems are normal except as per HPI and unless noted below. Active Problems Problems 1. Acanthosis Nigricans 701.2 2. Anxiety (Symptom) 300.00 3. Aortic Aneurysm 441.9 4. Coronary Artery Disease 414.00 5. Current Every Day Smoker 305.1 APPROXIMATELY 1/2 PACK PER DAY 6. Fatigue 780.79 7. Ganglion Of The Right Hand 727.42 8. Hyperlipidemia 272.4 9. Hypertension 401.9 10. Joint Pain, Localized In The Knee Bilateral 719.46 11. Obesity 278.00 12. Working diagnosis of Obstructive Sleep Apnea 327.23 Surgical History Problems 1. History of Cath Stent Placement 2. History of Inguinal Hernia Repair Family History Problems 1. Maternal history of Acute Myocardial Infarction V17.3 2. Sororal history of Heart Disease V17.49 3. Paternal history of Hepatitis 4. Sororal history of Hyperlipidemia 5. Sororal history of Hypertension V17.49 6. Maternal history of Stroke Syndrome V17.1 Social History Problems Current Every Day Smoker 305.1 APPROXIMATELY 1/2 PACK PER DAY Marital History - V61.03 4 kids (3 boys, 1 girl). 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 Denied History of Alcohol Use Physical Exam General appearance: Alert and oriented x 3, healthy appearing, in no acute distr ess. Patient appears morbidly obese. Examination of the head and face: Normal cephalic, atraumatic. Examination of neck:. Abnormal. (Acanthosis nigricans). Examination of thyroid:. Normal. Auscultation of lungs:. Clear to auscultation bilaterally; no wheezing. Auscultation of heart:. Regular rate and rhythm, no murmur. Inspection/palpation joints, bones, muscles: Abnormal. Intense pain in his left lateral knee with extension. Mild crepitus felt. Assessment of range of motion:. Normal. Assessment of stability: Normal. Assessment of muscle strength/tone: Abnormal. (Strength reduced due to pain). Inspection of skin and subcutaneous tissue: Abnormal. (Lump under the skin of hi s dorsal right hand distal to the wrist, consistent with ganglion cyst). Cortical function: Normal. Mood and affect:. Normal mood and affect. Assessment 1. Acanthosis Nigricans 701.2 2. Joint Pain, Localized In The Knee Bilateral 719.46 3. Obesity 278.00 4. Working diagnosis of Obstructive Sleep Apnea 327.23 5. Anxiety (Symptom) 300.00 6. Aortic Aneurysm 441.9 7. Coronary Artery Disease 414.00 8. Current Every Day Smoker 305.1 APPROXIMATELY 1/2 PACK PER DAY 9. Fatigue 780.79 10. Ganglion Of The Right Hand 727.42 11. Hyperlipidemia 272.4 12. Hypertension 401.9 Plan Acanthosis Nigricans (701.2) 1. Hemoglobin A1C Requested for: [id number] Ordered; For: Acanthosis Nigricans (701.2); Ordered By: CAIO JUNE Perform: SLRL/Cerner Due: 20Nov2011 Anxiety (Symptom) (300.00) 2. ALPRAZolam 0.5 MG Oral Tablet; TAKE 1 TABLET DAILY NEEDED; Therapy: to (Evaluate:08Feb2012); Last Rx:10Nov2011 Ordered; For: Anxiety (Symptom) (300.00); Rx By: CAIO JUNE; Dispense: 30 Day s ; #:30 Tablet; Refill: 2; Print Rx Coronary Artery Disease (414.00) 3. CBC with Diff Requested for: 10Nov2011 Ordered; For: Coronary Artery Disease (414.00); Ordered By: CAIO JUNE rm: SLRL/Cerner Due: 20Nov2011 4. CMP-Comprehensive Metabolic Panel Requested for: 10Nov2011 Ordered; For: Coronary Artery Disease (414.00); Ordered By: CAIO JUNE rm: SLRL/Cerner Due: 20Nov2011 Fatigue (780.79) 5. TSH-Thyroid Stimulating Hormone Requested for: 10Nov2011 Ordered; For: Fatigue (780.79); Ordered By: CAIO JUNE Perform: SLRL/Cerner Due: 20Nov2011 6. Vitamin B12 Requested for: 10Nov2011 Ordered; For: Fatigue (780.79); Ordered By: CAIO JUNE Perform: SLRL/Cerner Due: 20Nov2011 7. Vitamin D, 25 Hydroxy Requested for: 10Nov2011 Ordered; For: Fatigue (780.79); Ordered By: CAIO JUNE Perform: SLRL/Cerner Due: 15Nov2011 Hyperlipidemia (272.4) 8. Simvastatin 20 MG Oral Tablet; TAKE 1 TABLET DAILY AT BEDTIME; Therapy: 2011 to (Evaluate:08May2012); Last Rx:10Nov2011 Ordered; For: Hyperlipidemia (272.4); Rx By: CAIO JUNE; Dispense: 30 Days ; #:30 Tablet; Refill: 5; Print Rx Hypertension (401.9) 9. Carvedilol 6.25 MG Oral Tablet; TAKE 1 TABLET TWICE DAILY; Therapy: 10Nov2011 to (Evaluate:08May2012); Last Rx:10Nov2011 Ordered; For: Hypertension (401.9); Rx By: CAIO JUNE; Dispense: 30 Days ; #: 60 Tablet; Refill: 5; Print Rx Joint Pain, Localized In The Knee (719.46) 10. Hydrocodone-Acetaminophen 7.5-325 MG Oral Tablet; TAKE 1 TABLET EVERY 8 HOUR S NEEDED FOR PAIN; Therapy: 10Nov2011 to (Evaluate:[id number]); Last Rx:10Nov2011 Ordered; For: Joint Pain, Localized In The Knee (719.46); Rx By: CAIO JUNE; Dispense: 30 Days ; #:90 Tablet; Refill: 1; Print Rx SocHx: Current Every Day Smoker (305.1) 11. Chantix Continuing Month Billy 1 MG Oral Tablet; TAKE 1 TABLET TWICE DAILY; erapy: 10Nov2011 to (Evaluate:20Too2803); Last Rx:10Nov2011 Ordered; For: SocHx: Current Every Day Smoker (305.1); Rx By: CAIO JUNE; Dis pense: 30 Days ; #:60 Tablet; Refill: 2; Print Rx 12. Chantix Starting Month Billy 0.5 MG X 11 & 1 MG X 42 Oral Tablet; TAKE DIRECTED PER PACKAGE INSTRUCTIONS; Therapy: 10Nov2011 to (Last Rx:10Nov2011) Ordered; For: SocHx: Current Every Day Smoker (305.1); Rx By: CAIO JUNE; Dis pense: 0 Days ; #:1 X 53 EA Disp Pack; Refill: 0; Print Rx (1) CAD: Followup through Dr. Ramsey. No recent chest pain. (2) Aortic Dissection: Followup with Dr. Ramsey and Dr. Merino. Presumably not on aspirin due to this. Resume carvedilol therapy. (3) HTN: Uncontrolled, but he's been without carvedilol. Refill today. (4) Obesity: Encouraged more regular aerobic exercise + healthy eating. (5) Obstructive Sleep Apnea: Needs confirmation with sleep study, then probable CPAP. (6) Ganglion Cyst + Knee Pain: Severe, L>R knee pain. Referral for assessment by Dr. Bowling. Ibuprofen approved for use by Dr. Ramsey. (7) Anxiety: Responds well to twice weekly Xanax, so I'll refill today. (8) HLD: Continue simvastatin, but can't check lipids today due to breakfast. Re check in 3 months. (9) Fatigue: Likely related to [place], but we'll also check vitamin D, TSH, B12. (10) Acanthosis Nigricans: Check A1c. CPT: 43347 (45 minutes spent with patient, 50% in counselling) Return to clinic: 3 months (fasting) Signatures Electronically signed by : CAIO JUNE M.D.; Nov 10 2011 2:36PM (Author) documented in this encounter Plan of Treatment Not on filedocumented as of this encounter Visit Diagnoses Not on filedocumented in this encounter
--- OUTSIDE RECORDS SUMMARY | 2019-08-27 21:02 | XMS REPORT | Encounter Summary ---
Author Author [facility] Organization [facility] Address Unknown Phone Unavailable Care Team Providers Care Cello Teacher Name Role Phone Leanne Xiong PCP Unavailable Encounter Details Care Team Description Date Type Department Caio June MD [address] [facility] [address] [place] [address] [phone] 04/09/2012 Hist-Telephone [facility] Social History Date Tobacco Use Types Packs/Day Years Used Never Assessed Sex Assigned at Date Recorded Not on file Industry Job Start Date Occupation Not on file Not on file Not on file Travel End Travel History Travel Start No recent travel history available. documented as of this encounter Progress Notes * Caio June MD - 04/09/2012 11:42 AM CDT GABRIEL ALVAREZ - 05 Apr 2012 1:18 PM Caller: Self; Medical Complaint; ; Patient called and stated that simvastatin is causing very vivid dreams at night . Stopped that medication and would like a new med. Please advise. CAIO JUNE - 08 Apr 2012 11:01 AM He's been taking the simvastatin since November (2011), so I don't believe it is resp onsible for any new vivid dreams. This is also not a common side effect of the medication. If he'd like to test the theory, stop the medication for a week, se e if the dreams subside, then resume it & observe for recurrence. If he's convinced & doesn't wish to do this experiment, give him atorvastatin 20mg nightly. GABRIEL ALVAREZ - 09 Apr 2012 11:42 AM Spoke with patient, has stopped the simvastatin and the vivid dreams have decrea sed and would like to try the atorvastatin. Tasked in allscripts. Electronically signed by:CAIO JUNE M.D. Apr 09 2012 12:14PM INSTRUCTIONAL SUPPORT SPECIALIST Co-author documented in this encounter Plan of Treatment Not on filedocumented as of this encounter Visit Diagnoses Not on filedocumented in this encounter
--- OUTSIDE RECORDS SUMMARY | 2019-08-27 21:02 | XMS REPORT | Encounter Summary ---
Author Author [facility] Organization [facility] Address Unknown Phone Unavailable Care Team Providers Care Pediatric Dental Assistant Name Role Phone Leanne Xiong PCP Unavailable Encounter Details Care Team Description Date Type Department Darien Condon MD [address] [facility] [address] [place] [address] [phone] 09/05/2011 [facility] [...]
--- OUTSIDE RECORDS SUMMARY | 2019-08-27 21:02 | XMS REPORT | Encounter Summary ---
Author Author [facility] Organization [facility] Address Unknown Phone Unavailable Care Team Providers Care Mortgage Processor Name Role Phone Leanne Xiong PCP Unavailable Encounter Details Care Team Description Date [place] [address] [place] [address] [address] [place] [address] [phone] 08/16/2011 [facility] - [facility] C Visit Social History [...] Signs Reading Time Taken Comments Vital Sign 136/98 08/16/2011 11:44 AM LIFE EDUCATOR Blood Pressure 72 08/16/2011 11:44 AM LIFE EDUCATOR Pulse - - Temperature - - Respiratory Rate - - Oxygen Saturation - - Inhaled Oxygen Concentration 115.9 kg (255 lb 9.6 oz) 08/16/2011 11:44 AM LIFE EDUCATOR morbidly ob lynn Weight 167.6 cm (5' 6") 08/16/2011 11:44 AM LIFE EDUCATOR Height 41.25 08/16/2011 11:44 AM LIFE EDUCATOR Body Mass Index documented in this encounter Progress Notes * Lawrence Ramsey MD - 08/16/2011 12:00 PM LIFE EDUCATOR [place] [facility] [address] [place] [address] August 16, 2011 Andres Maki MD [address] [facility] [address] [place] [address] RE: GIACOMO TRAYLOR : 1965 Chart #: [id number] Visit provider: Cheil Ramsey M.D. Visit location: [place] office Dear Dr. Maki: I had the [...] that this should be covered under wor [employer] comp. According to him, this is close [...] at age 68. Mother Cause of was [place] at age 50. Social History: Marital Status: [...] to contact me. Sincerely, Cheli Ramsey M.D. [facility] cc: Dawson Hermosillo MD [address] [place] [phone] F: 08/19/2011 EDUCATOR documented in this encounter Plan of Treatment Not on filedocumented as of this encounter Visit Diagnoses Not on filedocumented in this encounter
--- OUTSIDE RECORDS SUMMARY | 2019-08-27 21:02 | XMS REPORT | Encounter Summary ---
Author Author [facility] Organization [facility] Address Unknown Phone Unavailable Care Team Providers Care Education Dean Name Role Phone Leanne Xiong PCP Unavailable Encounter Details Care Team Description Date Type Department Caio June MD [address] [address] [phone] 03/01/2012 Hist-Appointmen [facility] Social History [...] Signs Reading Time Taken Comments Vital Sign 142/88 03/01/2012 9:23 AM CDT Blood Pressure 60 03/01/2012 9:23 AM CDT Pulse - - Temperature - - Respiratory Rate - - Oxygen Saturation - - Inhaled Oxygen Concentration 124.7 kg (275 lb) 03/01/2012 9:23 AM CDT Weight 166.4 cm (5' 5.5") 03/01/2012 9:23 AM CDT Height 45.07 03/01/2012 9:23 AM CDT Body Mass Index documented in this encounter Progress Notes * Caio June MD - 03/01/2012 9:00 AM CDT Chief Complaint Followup + new rash. History of Present Illness Mr. Traylor returns today for followup on his multiple medical problems. He never received the lab letter we sent out, because we have an old address on [facility]. This means he never began metformin or vitamin D supplementation. He has b een using his simvastatin faithfully and carvedilol as well. He is a bit cranky today because he is fasting. He has recently embarked upon a journey to lose weight. He is eliminating all r efined sugars, soda specifically. He is walking his dog regularly as well. His only new concern is a rash on both legs that stops at the sock line. He has been trying Benadryl and an bevs-pse-tofvbhx steroid cream, with little impact. He also noticed that he has been sneezing a lot more lately, again the Benadryl has not been helpful. Review of Systems Constitutional, cardiovascular, pulmonary and psychiatric review of systems are normal except as per HPI and unless noted below. Active Problems 1. Anxiety (Symptom) 300.00 2. Aortic Aneurysm 441.9 3. Coronary Artery Disease 414.00 4. Current Every Day Smoker 305.1 5. Fatigue 780.79 6. Ganglion Of The Right Hand 727.42 7. Hyperlipidemia 272.4 8. Hypertension 401.9 9. Joint Pain, Localized In The Knee Bilateral 719.46 10. Obesity 278.00 11. Working diagnosis of Obstructive Sleep Apnea 327.23 12. Prediabetes 790.29 13. Vitamin D Deficiency 268.9 Past Medical History 1. History of Cath Stent Placement Social History Current Every Day Smoker 305.1 Current Meds 1. ALPRAZolam 0.5 MG Oral Tablet; TAKE 1 TABLET DAILY NEEDED; Therapy: to (Evaluate:08Feb2012); Last Rx:10Nov2011 2. Carvedilol 6.25 MG Oral Tablet; TAKE 1 TABLET TWICE DAILY; Therapy: 10Nov2011 to (Evaluate:08May2012); Last Rx:10Nov2011 3. Chantix Continuing Month Billy 1 MG Oral Tablet; TAKE 1 TABLET TWICE DAILY; The rapy: 10Nov2011 to (Evaluate:08Feb2012); Last Rx:10Nov2011 4. Chantix Starting Month Billy 0.5 MG X 11 & 1 MG X 42 Oral Tablet; TAKE DIRECTED PER PACKAGE INSTRUCTIONS; Therapy: 10Nov2011 to (Last Rx:10Nov2011) 5. Hydrocodone-Acetaminophen 7.5-325 MG Oral Tablet; TAKE ONE TABLET EVERY 8 RIGOBERTO RS NEEDED FOR PAIN; Therapy: 10Nov2011 to (Evaluate:25Mar2012); Last Rx:[id number] 6. Ibuprofen 800 MG Oral Tablet; TAKE 1 TABLET 3 TIMES DAILY NEEDED; Therapy: 10Nov2011 to (Evaluate:15May2012) Requested for: 17Nov2011; Last Rx:17Nov2011 7. MetFORMIN HCl 500 MG Oral Tablet Extended Release 24 Hour; TAKE 1 TABLET OMAIRA Y; Therapy: 15Nov2011 to (Evaluate:13May2012) Requested for: 15Nov2011; Last Rx:0 [id number] 8. Simvastatin 20 MG Oral Tablet; TAKE 1 TABLET DAILY AT BEDTIME; Therapy: 2011 to (Evaluate:08May2012); Last Rx:10Nov2011 9. Vitamin D3 5000 UNIT Oral Tablet; TAKE 1 TABLET DAILY; Therapy: 15Nov2011 to (Evaluate:09Nov2012) Requested for: 15Nov2011; Last Rx:15Nov2011 Allergies 1. No Known Drug Allergies Immunizations MMR --- Series1: Childhood Td/DT --- Series1: Approx 09Nov2002 Vitals Vital Signs [Data Includes: Last 1 Instance] 01Mar2012 09:23AM BMI Calculated 45.27 BSA Calculated 2.27 Height 5 ft 5.5 in Weight 275 lb Blood Pressure 142 / 88, LUE, Sitting Heart Rate 60, R Radial Physical Exam General: Obese. Lungs: Clear to auscultation bilaterally. Cardiovascular: Examination reveals regular rate and rhythm without murmor or ga llop. Peripheral pulses are symmetrical. There is no dependent edema or patholog ic varicosities. Psychiatric: Examination reveals normal mood and affect. Assessment 1. Current Every Day Smoker 305.1 2. Dermatitis 692.9 3. Hyperlipidemia 272.4 4. Hypertension 401.9 5. Obesity 278.00 6. Working diagnosis of Obstructive Sleep Apnea 327.23 7. Vitamin D Deficiency 268.9 8. Prediabetes 790.29 9. Allergic Rhinitis 477.9 Plan 1. Dermatology Evaluation and Treatment Adult follow-up Requested for: 12 Ordered; For: Acanthosis Nigricans (701.2); Ordered By: CAIO JUNE Performed : Due: 06Mar2012; Last Updated By: GABRIEL ALVAREZ 2. Cetirizine HCl 10 MG Oral Tablet; TAKE 1 TABLET DAILY; Therapy: 76Rtt9480 to (Evaluate:58Acz7310); Last Rx:[id number] Ordered; For: Allergic Rhinitis (477.9); Rx By: CAIO JUNE; Dispense: 30 Days ; #:30 Tablet; Refill: 5; Transmitted To: [facility] 3. Fluticasone Propionate 50 MCG/ACT Nasal Suspension; USE 2 SPRAYS IN EACH NOST RIL ONCE DAILY; Therapy: 83Tnp8125 to (Complete:57Tbo2447); Last Rx:[id number] Ordered; For: Allergic Rhinitis (477.9); Rx By: CAIO JUNE; Dispense: 30 Days ; #:1 X 16 GM Bottle; Refill: 5; Transmitted To: [facility] 4. Lipid Profile Requested for: 40Ewx1339 Ordered; For: Coronary Artery Disease (414.00), Hyperlipidemia (272.4), Obesity (278.00); Ordered By: CAIO JUNE Perform: [facility]Cerner Due: 21Hjt7086 5. Triamcinolone Acetonide 0.5 % External Cream; APPLY SPARINGLY AND MASSAGE IN TWICE DAILY; Therapy: 31Iuc6299 to (Evaluate:01Rgg4870) Requested for: 81Amb9718; La st Rx:[id number]; Edited Ordered; For: Dermatitis (692.9); Rx By: CAIO JUNE; Dispense: 30 Days ; #:15 X 15 GM Tube; Refill: 5; Verified Transmission to [facility]; Last Updated By: Jareth Vergara 6. Carvedilol 12.5 MG Oral Tablet; TAKE 1 TABLET TWICE DAILY; Therapy: 92Eie7318 to (Evaluate:49Iac5435) Requested for: 83Ueg0025; Last Rx:[id number]; Edited Ordered; For: Hypertension (401.9); Rx By: CAIO JUNE; Dispense: 30 Days ; #: 60 Tablet; Refill: 5; Verified Transmission to [facility]; Last Updated By: Issac WeemsBabelverse 7. MetFORMIN HCl 500 MG Oral Tablet Extended Release 24 Hour; TAKE 1 TABLET OMAIRA Y; Therapy: 15Nov2011 to (Evaluate:17Wcj9365) Requested for: 45Vtz6016; Last Rx:2 10Feb2012; Edited Ordered; For: Prediabetes (790.29); Rx By: CAIO JUNE; Dispense: 30 Days ; #: 30 Tablet Extended Release 24 Hour; Refill: 5; Verified Transmission to [facility] ; Last Updated By: Saharey 8. Chantix Continuing Month Billy 1 MG Oral Tablet; TAKE 1 TABLET TWICE DAILY; The rapy: 10Nov2011 to (Evaluate:30May2012) Requested for: 18Trs3690; Last Rx:[id number]; Edited Ordered; For: SocHx: Current Every Day Smoker (305.1); Rx By: CAIO JUNE; Dis pense: 30 Days ; #:60 Tablet; Refill: 2; Verified Transmission to [facility]; Msg to Pharmacy: Begin after starting billy complete.; Last Updated By: [employer] 9. Chantix Starting Month Billy 0.5 MG X 11 & 1 MG X 42 Oral Tablet; TAKE DIRECTED PER PACKAGE INSTRUCTIONS; Therapy: 10Nov2011 to (Last Rx:[id number]) Requested for: 67Ygz6147; Edited Ordered; For: SocHx: Current Every Day Smoker (305.1); Rx By: CAIO JUNE; Dis pense: 0 Days ; #:1 X 53 EA Disp Pack; Refill: 0; Verified Transmission to [facility]; Last Updated By: Saharey 10. Vitamin D (Ergocalciferol) 82020 UNIT Oral Capsule; TAKE ONE CAPSULE A WEEK FOR 3 MONTHS; Therapy: 15Nov2011 to (Last Rx:[id number]) Requested for: 52Gyb5362; E dited Ordered; For: Vitamin D Deficiency (268.9); Rx By: CAIO JUNE; Dispense: 0 Da ys ; #:12 Capsule; Refill: 0; Verified Transmission to [facility]; Last Updated By : Saharey 11. Vitamin D3 5000 UNIT Oral Tablet; TAKE 1 TABLET DAILY; Therapy: 15Nov2011 to (Evaluate:97Csi2053) Requested for: 16Okc3214; Last Rx:[id number]; Edited Ordered; For: Vitamin D Deficiency (268.9); Rx By: CAIO JUNE; Dispense: 30 D ays ; #:30 Tablet; Refill: 11; Verified Transmission to [facility]; Last Updated B y: [employer] (1) Dermatitis: Distribution is consistent with a contact/photo dermatitis. I e ncouraged him to look for possible irritants/exposures. Try higher dose steroid cream too. (2) HTN: Uncontrolled on carvedilol. We'll increase the dose today to 12.5mg BID . (3) Obesity: He's embarked on a low calorie diet & increased aerobic activity (walking his dog). (4) Obstructive Sleep Apnea: He's still not had a sleep study, so we'll arrange for it (again). (5) HLD: Continue simvastatin, and check lipids today. (6) Vitamin D Deficiency: He's not begun the supplements, so we'll re-prescribe & check levels again in 3 months. (7) Prediabetes: He's not begun metformin, so we'll re-prescribe & check A1c again in 3 months. (8) Smoking: He's not begun Chantix yet, so I'll re-prescribe. He has cut back. Discussed importance of cessation for ~ 7 minutes. (9) Allergic Rhinitis: I've recommended Zyrtec and fluticasone spray. CPT: 16611 Return to clinic: 3 months (fasting) Signatures Electronically signed by : CAIO UJNE M.D.; Mar 01 2012 10:00AM (Author) * Caio June MD - 03/01/2012 9:00 AM CDT Clinical Summary Patient Name : GIACOMO TRAYLOR Appointment Date: 03/01/2012 9:00:00 AM : [id number] : [address] [place] [address] : Assessed Problems Current Every Day Smoker Dermatitis Hyperlipidemia Hypertension Obesity Working diagnosis of Obstructive Sleep Apnea Vitamin D Deficiency Prediabetes Allergic Rhinitis Treatment Plan Medication Changes: Chantix Continuing Month Billy 1 MG Oral Tablet; TAKE 1 TABLET TWICE DAILY.; Day s: 30; Qty: 60; Refill: 2 [Renewed] Chantix Starting Month Billy 0.5 MG X 11 & 1 MG X 42 Oral Tablet; TAKE DIRECTED PER PACKAGE INSTRUCTIONS.; Days: 0; Qty: 1; Refill: 0 [Renewed] Carvedilol 12.5 MG Oral Tablet; TAKE 1 TABLET TWICE DAILY.; Days: 30; Qty: 60; Refill: 5 [Renewed] Vitamin D (Ergocalciferol) 04806 UNIT Oral Capsule; TAKE ONE CAPSULE A WEEK FO R 3 MONTHS; Days: 0; Qty: 12; Refill: 0 [Renewed] Vitamin D3 5000 UNIT Oral Tablet; TAKE 1 TABLET DAILY.; Days: 30; Qty: 30; Ref ill: 11 [Renewed] MetFORMIN HCl 500 MG Oral Tablet Extended Release 24 Hour; TAKE 1 TABLET DAILY ; Days: 30; Qty: 30; Refill: 5 [Renewed] Triamcinolone Acetonide 0.5 % External Cream; APPLY SPARINGLY AND MASSAGE IN T WICE DAILY.; Days: 30; Qty: 15; Refill: 5 [Start] Fluticasone Propionate 50 MCG/ACT Nasal Suspension; USE 2 SPRAYS IN EACH NOSTR IL ONCE DAILY; Days: 30; Qty: 1; Refill: 5 [Start] Cetirizine HCl 10 MG Oral Tablet; TAKE 1 TABLET DAILY.; Days: 30; Qty: 30; Ref ill: 5 [Start] Labs/Procedures: Lipid Profile Follow-ups/Referrals: Dermatology Medications/Immunizations Administered: Influenza; Administered By: GABRIEL ALVAREZ, 03/01/2012 10:09:00 AM (1) Dermatitis: Distribution is consistent with a contact/photo dermatitis. I encouraged him to look for possible irritants/exposures. Try higher dose steroid cream too. (2) HTN: Uncontrolled on carvedilol. We'll increase the dose today t o 12.5mg BID. (3) Obesity: He's embarked on a low calorie diet & increased aerobic activity (walking his dog). (4) Obstructive Sleep Apnea: He's still not had a sleep study, so we'll arrange for it (again). (5) HLD: Continue simvastatin, and check lipids today. (6) Vitamin D Deficiency: He's not begun t he supplements, so we'll re-prescribe & check levels again in 3 months. (7) Prediabetes: He's not begun metformin, so we'll re-prescribe & check A1c again in 3 months. (8) Smoking: He's not begun Chantix yet, so I'll re-prescribe. He has cut back. Discussed importance of cessation for 7 minutes. (9) Allergic Rhinitis: I've recommended Zyrtec and fluticasone spray . CPT: 36996 Return to clinic: 3 months (fasting) Vitals Recorded Date/Time: 03/01/2012 9:23:00 AM Systolic: 142 mm Hg; Diastolic: 88 mm Hg; Heart Rate: 60 bpm; BMI Calculated: 45.27; BSA Calculated: 2.27; Height: 5-5.5 in; Weight: 275-0 lb Current Medications ALPRAZolam 0.5 MG Oral Tablet; [...] INSTRUCTIONS.; Days: 0; Qty: 1; Refill: 0 Fluticasone Propionate 50 MCG/ACT Nasal Suspension; [...] ; Qty: 90; Refill: 5 MetFORMIN HCl 500 MG Oral Tablet Extended Release 24 Hour; TAKE 1 TABLET DAILY ; Days: 30; Qty: 30; Refill: 5 Simvastatin 20 MG Oral Tablet; TAKE 1 TABLET DAILY AT BEDTIME; Days: 30; Qty: 30; Refill: 5 Triamcinolone Acetonide 0.5 % External Cream; APPLY SPARINGLY AND MASSAGE IN T WICE DAILY.; Days: 30; Qty: 15; Refill: 5 Vitamin D (Ergocalciferol) 58237 UNIT Oral Capsule; TAKE ONE CAPSULE A WEEK FO R 3 MONTHS; Days: 0; Qty: 12; Refill: 0 Vitamin D3 5000 UNIT Oral Tablet; TAKE 1 TABLET DAILY.; Days: 30; Qty: 30; Ref ill: 11 Allergies No Known Drug Allergies Document and Provider Details Document: Clinical Summary Provider: SLADE Site: [facility] Site Address : [address] [place] [address] Site documented in this encounter Plan of Treatment Not on filedocumented as of this encounter Visit Diagnoses Not on filedocumented in this encounter
--- OUTSIDE RECORDS SUMMARY | 2019-08-27 21:02 | XMS REPORT | Encounter Summary ---
Author Author [facility] Organization [facility] Address Unknown Phone Unavailable Care Team Providers Care Helper Teacher Name Role Phone Leanne Xiong PCP Unavailable Encounter Details Care Team Description Date Type Department Laenne Xiong MD 03/05/2012 Hist-Other [facility] Social History [...]
--- OUTSIDE RECORDS SUMMARY | 2019-08-27 21:02 | XMS REPORT | Encounter Summary ---
Author Author [facility] Organization [facility] Address Unknown Phone Unavailable Care Team Providers Care Adolescent Medicine Specialist Name Role Phone Leanne Xiong PCP Unavailable Encounter Details Care Team Description Date Type Department Caio June MD [address] [address] [phone] 03/06/2012 Hist-Telephone [facility] Social History Date Tobacco Use Types Packs/Day Years Used Never Assessed Sex Assigned at Date Recorded Not on file Industry Job Start Date Occupation Not on file Not on file Not on file Travel End Travel History Travel Start No recent travel history available. documented as of this encounter Progress Notes * Caio June MD - 03/06/2012 10:15 AM CDT CAIO JUNE - 05 Mar 2012 6:49 AM Mr. Traylor never got our lab letter last time. Could you call him with his most recent results & recommendations (fenofibrate) ? Thanks... GABRIEL ALVAREZ - 06 Mar 2012 9:59 AM Patient notified and will start the fenofibrate. Patient also notified of Eye do ctor's recommendations to see cardiology and to have a cartoid doppler. Will luann l to schedule these appointments. Referral faxed to [facility]. Electronically signed by:CAIO JUNE M.D. Mar 06 2012 10:16AM TABLE AND DESK FINISHER Co-author documented in this encounter Plan of Treatment Not on filedocumented as of this encounter Visit Diagnoses Not on filedocumented in this encounter
--- OUTSIDE RECORDS SUMMARY | 2019-08-27 21:02 | XMS REPORT | Encounter Summary ---
Author Author [facility] Organization [facility] Address Unknown Phone Unavailable Care Team Providers Care Wrinkle Chaser Name Role Phone Leanne Xiong PCP Unavailable Encounter Details Care Team Description Date Type Department Lawrence Ramsey MD [address] [facility] [address] [place] [address] [phone] 07/28/2011 [facility] [...]
--- OUTSIDE RECORDS SUMMARY | 2019-08-27 21:02 | XMS REPORT | Encounter Summary ---
Author Author [facility] Organization [facility] Address Unknown Phone Unavailable Care Team Providers Care Typewriter Operator Automatic Name Role Phone PCP Unavailable Encounter Details Care Team Description Date Type Department Palomo Bowling MD [address] [facility] [address] [place] [address] [phone] 12/01/2011 [facility] - [facility] 01/04/2012 [address] [facility] [address] [place] [address] Social History Date Tobacco Use Types Packs/Day [...] route 2 times every day with food 02/10/2015 fenofibrate micronized take 1 1 0 [...] oral route every day in the evening documented as of this encounter Plan of Treatment Not on filedocumented as of this encounter Visit Diagnoses Not on filedocumented in this encounter
--- OUTSIDE RECORDS SUMMARY | 2019-08-27 21:02 | XMS REPORT | Encounter Summary ---
Author Author [facility] Organization [facility] Address Unknown Phone Unavailable Care Team Providers Care Business Analyst Project Manager Name Role Phone Leanne Xiong PCP Unavailable Encounter Details Care Team Description Date Type Department Leanne Xiong MD 11/10/2011 Hist-Other [facility] Social History [...]
--- OUTSIDE RECORDS SUMMARY | 2019-08-27 21:02 | XMS REPORT | Encounter Summary ---
Author Author [facility] Organization [facility] Address Unknown Phone Unavailable Care Team Providers Care Wholesale Buyer Name Role Phone Leanne Xiong PCP Unavailable Encounter Details Care Team Description Date Type Department Leanne Xiong MD 04/09/2012 Hist-Other [facility] Social History [...]
--- OUTSIDE RECORDS SUMMARY | 2019-08-27 21:02 | XMS REPORT | Encounter Summary ---
Author Author [facility] Organization [facility] Address Unknown Phone Unavailable Care Team Providers Care Retreader Name Role Phone PCP Unavailable Encounter Details Care Team Description Date Type Department Andres Maki MD [address] [id number] 11/10/2011 [facility] Encounter [address] [place] [address] Social History Date Tobacco Use Types Packs/Day [...] TABLET 90 0 3 TIMES DAILY NEEDED. 08/16/2011 02/10/2015 simvastatin (ZOCOR) 20 MG take [...] Name Priority Date/Time Associated Diag nosis VITAMIN B12 Routine 11/10/2011 2:36 PM CDT THYROID STIMULATING Routine 11/10/2011 HORMONE 2:36 PM CDT HEMOGLOBIN A1C Routine 11/10/2011 2:36 PM CDT COMPREHENSIVE METABOLIC Routine 11/10/2011 PANEL 2:36 PM CDT CBC AND DIFF (MANUAL DIFF Routine 11/10/2011 IF NECESSARY) 2:36 PM CDT VITAMIN D, 25-HYDROXY Routine 11/10/2011 2:36 PM CDT documented in this encounter Results * Comprehensive Metabolic Panel (11/10/2011 2:36 PM CDT) Albumin 4.1 3.5 - 5.0 G/DL [facility] Aspartate 34 15 - 46 IU/L [facility] Aminotransferas e Bilirubin Total 0.6 0.2 - 1.3 MG/DL [facility] Protein Total 7.6 6.0 - 8.2 G/DL [facility] Serum Calcium 8.8 8.4 - 10.2 MG/DL [facility] Creatinine 1.0 0.6 - 1.3 MG/DL [facility] Glucose 76 70 - 100 MG/DL [facility] Alkaline 119 42 - 128 IU/L [facility] Phosphatase Sodium 144 133 - 147 MEQ/L [facility] Potassium 4.5 3.5 - 5.1 MEQ/L [facility] Chloride 106 96 - 112 MEQ/L [facility] Carbon Dioxide 26 22 - 30 MEQ/L [facility] Blood Urea 10 7 - 26 MG/DL [facility] Nitrogen Anion Gap 12 3 - 15 [facility] Alanine 39 13 - 69 IU/L [facility] Aminotransferas e eGFR Male 81 [facility] Non-AA Comment: Chronic Kidney Disease less than 60 mL/min/1.73 sq.m Kidney failure less than 15 mL/min/1.73 sq.m eGFR Male AA 98 [facility] Comment: Chronic Kidney Disease less than 60 mL/min/1.73 sq.m Kidney failure less than 15 mL/min/1.73 sq.m Specimen Blood Performing Organization Address City/State/[facility] Ph one Number [phone] [place], [place] [address] SUN[facility] * CBC and Diff (manual diff if necessary) (11/10/2011 2:36 PM CDT) WBC 7.93 4.00 - 11.00 TH/UL [facility] RBC 5.25 4.31 - 5.84 MIL/UL [facility] Hemoglobin 15.3 13.0 - 17.0 G/DL [facility] Hematocrit 45 40 - 50 % [facility] MCV 85 80 - 99 FL [facility] MCH 29 27 - 34 PG [facility] MCHC 34 32 - 36 % [facility] RDW 13.4 9.0 - 14.5 % [facility] Platelet Count 270 140 - 400 TH/UL [facility]QUEST MPV 9.9 9.4 - 12.3 FL SUNQUEST % Neutrophils 50 45 - 78 % SUNQUEST %Lymphocytes 39 15 - 47 % SUNQUEST %Monocytes 8 0 - 12 % SUNQUEST %Eosinophils 3 0 - 7 % [facility] # Basophils 0.05 0.00 - 0.10 TH/UL [facility] # Eosinophils 0.26 0.00 - 0.40 TH/UL [facility]QUEST %Basophils 1 0 - 2 % [facility] # Monocytes 0.63 0.20 - 0.90 TH/UL [facility] # Lymphocytes 3.05 1.00 - 3.30 TH/UL [facility] # Granulocytes 3.94 1.70 - 6.80 TH/UL [facility]QUEST Specimen Blood Performing Organization Address [facility] one Number [phone] [place], [place] [address] [facility] * Thyroid Stimulating Hormone (11/10/2011 2:36 PM CDT) Thyroid 3.52 0.47 - 4.68 UIU/ML SUNQUEST Stimulating Hormone Specimen Blood Performing Organization Address [facility] one Number SL[facility] [phone] [place] [phone] SUNQUEST * Vitamin B12 (11/10/2011 2:36 PM CDT) VITAMIN B12 573 239 - 931 PG/ML [facility]QUEST Specimen Blood Performing Organization Address [facility] one Number [facility] [phone] [place] [phone] SUNQUEST * Hemoglobin A1C (11/10/2011 2:36 PM CDT) HEMOGLOBIN A1C 6.4 (H) 4.0 - 5.6 % [facility] Comment: Non-diabetic 4.0 - 5.6 % Prediabetes 5.7 - 6.4 % Diabetes >= 6.5 % Specimen Blood Performing Organization Address [facility] one Number RL [phone] [place] [phone] SUNQUEST * Vitamin D, 25-Hydroxy (11/10/2011 2:36 PM CDT) Vitamin D <5 NG/ML [facility] 25-Hydroxy D2 Vitamin D 16 NG/ML [facility] 25-Hydroxy D3 Vitamin D 16 (L) 25 - 80 NG/ML SUNQUEST 25-Hydroxy Comment: Test performed by [facility] [address] [address] Specimen Blood Performing Organization Address [facility] one Number [facility] [phone] [place] [phone] SUNQUEST documented in this encounter Visit Diagnoses Not on filedocumented in this encounter
--- OUTSIDE RECORDS SUMMARY | 2019-08-27 21:02 | XMS REPORT | Encounter Summary ---
Author Author [facility] Organization [facility] Address Unknown Phone Unavailable Care Team Providers Care Soft Tile Setter Name Role Phone Leanne Xiong PCP Unavailable Encounter Details Care Team Description Date Type Department Caio June MD [address] [facility] [address] [place] [address] [phone] 02/28/2012 Hist[facility] Social History Date Tobacco Use Types Packs/Day Years Used Never Assessed Sex Assigned at Date Recorded Not on file Industry Job Start Date Occupation Not on file Not on file Not on file Travel End Travel History Travel Start No recent travel history available. documented as of this encounter Progress Notes * Caio June MD - 02/28/2012 12:55 PM CDT Lennie Becerra - 28 Feb 2012 1:04 PM Caller: Self; Other; FYI - Pt indicates he is frustrated he hasn't rec'd return calls and that he's t ried a few times to reach us with no luck. I apologized that this was the case, but let him know I don't remember a specific call from him. I also let him know I always call the pt back and try to at least leave a voice mail if I can't re ach them directly. He indicates it's fine. He indicates he wants to be seen for rash/possible poison adriel that he's had abou t 2-3 weeks. I scheduled him at your next available for this Sunday at 0900. H e wants to talk with you about this issue as well as pre-diabetes status and cho lesterol. I noticed that he did not have lipids done last visit and that it nas uld be done this month, so I ordered this for him and let him know to come roshan mitchell. Electronically signed by:CAIO JUNE M.D. Feb 28 2012 3:31PM OPERATIONS ADMINISTRATOR Acknowledg ement documented in this encounter Plan of Treatment Not on filedocumented as of this encounter Visit Diagnoses Not on filedocumented in this encounter
--- OUTSIDE RECORDS SUMMARY | 2019-08-27 21:02 | XMS REPORT | Encounter Summary ---
Author Author [facility] Organization [facility] Address Unknown Phone Unavailable Care Team Providers Care Assistant Passenger Locomotive Engineer Name Role Phone Leanne Xiong PCP Unavailable Encounter Details Care Team Description Date Type Department Miguel Galarza MD [address] [place] [address] [phone] 03/19/2012 [facility] Visit Social History Date [...]
--- OUTSIDE RECORDS SUMMARY | 2019-08-27 21:03 | XMS REPORT | Encounter Summary ---
Author Author [facility] Organization [facility] Address Unknown Phone Unavailable Care Team Providers Care Electrician Office Name Role Phone PCP Unavailable Encounter Details Care Team Description Date Type Department Clive Kelley MD [address] [place], [place] [id number] Emergency, Physician, Dissection of aorta, thoracic (HCC) 01/04/2011 [facility] [address] [place], [place] [id number] Social History Date Tobacco Use Types Packs/Day Years Used Never Assessed Sex Assigned at Date Recorded Not on file Industry Job Start Date Occupation Not on file Not on file Not on file Travel End Travel History Travel Start No recent travel history available. documented as of this encounter Medications at Time of Discharge Start Date End Date Medication Sig Dispensed Refills 02/10/2015 fenofibrate micronized take 1 1 0 (ANTARA) 43 MG capsule capsule (43MG) by oral route every day documented as of this encounter Plan of Treatment Not on filedocumented as of this encounter Procedures Comments Procedure Name Priority Date/Time Associated Diag nosis CT ANGIO CHEST Routine 01/04/2011 11:20 AM CDT APTT Routine 01/04/2011 10:54 AM CDT TROPONIN Routine 01/04/2011 10:54 AM CDT PROTHROMBIN TIME/INR Routine 01/04/2011 10:54 AM CDT LIPASE Routine 01/04/2011 10:54 AM CDT D DIMER Routine 01/04/2011 10:54 AM CDT COMPREHENSIVE METABOLIC Routine 01/04/2011 PANEL 10:54 AM CDT CBC AND DIFF (MANUAL DIFF Routine 01/04/2011 IF NECESSARY) 10:54 AM CDT B TYPE NATRIURETIC Routine 01/04/2011 PEPTIDE 10:54 AM CDT XR CHEST SINGLE VIEW Routine 01/04/2011 FRONTAL 10:[address] ABDOMEN PELVIS W Routine 01/04/2011 CONTRAST 10:30 AM CDT documented in this encounter Results * CT Angio Chest (01/04/2011 11:20 AM CDT) Specimen Narrative Performed At [facility] Patient: GIACOMO TRAYLOR Phone #: Med Rec#: [id number] Sex: M : 1965 Javed#: [id number] Location: [facility] Check-in#: [id number] Procedure Requested: [id number] CT ANGIO [facility]. Reason For Exam: SHORTNESS OF JITENDRA ATH Exam Ordered: 01/04/2011 105 4 Exam Date/Time: 01/04/2011 1130 Check-in Date/Time: 01/04/2011 1054 Attendin EMERGENCY, PHYSI LOWELL "" Requestin CLIVE KELLEY Referring: , Primary Care: , CT ANGIO CHEST. Indication: SHORTNESS OF BREATH Exam Date: Jan 04, 2011 11:30:[address] images of the Chest were obt ained with 100 cc Omnipaque-[address] angiography protocol was utilized and reformatted MIP and 3-D images were performed [place] [facility] [facility] [place]. The thyroid and thoracic inlet demonstr ate no abnormalities. There are no mediastinal masses. There are mildly prominent right subpectoral and right axillary lymph node with right ax illary nodule measuring 3.3 cm x 2.4 cm in image 25 series 3. There are calcified subcarinal and hilar lymph nodes likely from old granulomato us disease. The heart is within normal limits in size. there is only minimal pericardial fluid. There is peripheral eccentric thickenin g of distal aortic arch extending into descending thoracic aorta and uppe r abdominal aorta best seen on images 25-85 series 3 suggestive of pro bable aortic dissection, possibly of intramural hematoma type dissection. Descending aorta demonstrates no evidence of intimal flap. A pulmonary arteries demonstrate no filling defects. Lung windows demonstrate no infiltrates or suspicious dominant pulmonary masses. Visualized portions of the upper abdome n demonstrate upper abdominal aortic involvement of descending thorac ic aortic dissection, better described on CT abdomen report, dictate d separately. IMPRESSION: Eccentric crescentic nonenhancing thick ening of distal aortic arch and descending thoracic aorta extending int o upper abdominal aorta, likely aortic dissection, possibly of intramur al hematoma type dissection. No CT evidence of a descending thoracic ao rtic involvement or great vessel involvement, at this time. Please see CT abdomen report, dictated separately for full details of abdominal aortic findings. Moderately prominent right axillary and right subpectoral lymph nodes of unknown significance. Followup imaging recommended. Ultrasound guided FNA histologic sampling could be perfor med if necessary depending on clinical history and physical exam find ings. No significant pericardial or pleural e ffusions or lung consolidation. Diffuse coarse echotexture of liver sug gesting fat infiltration. CRITICAL FINDINGS: The acute findings were urgently commun icated to Dr. Kelley of the ED at 1147 hours on January 04, 2011 Signed (Authenticated, Released) Date-T natasha: 01/04/2011 1209 [employer]- LIS CLARK M.D., Staff Radiologist Dictated By- Manjula FOX M.D. Radiologist Staff Physician- LIS CLARK M.D., Staff Radiologist Authenticated By- LIS CLARK M.D., Staff Radiologist Procedure Note Interface, Rad Conversion - 09/06/2013 1:55 PM FOOT PIECE ASSEMBLER REPORT Patient: GIACOMO TRAYLOR Phone #: Med Rec#: [id number] Sex: M : 1965 [facility]#: [id number] Location: [facility] Check-in#: [id number] Procedure Requested: [id number] CT ANGIO CHEST. Reason For Exam: SHORTNESS OF BREATH Exam Ordered: 01/04/2011 1054 Exam Date/Time: 01/04/2011 1130 Check-in Date/Time: 01/04/2011 1054 Attendin EMERGENCY, PHYSICIAN "" Requestin CLIVE KELLEY Referring: , Primary Care: , CT ANGIO CHEST. Indication: SHORTNESS OF BREATH Exam Date: Jan 04, 2011 11:30:[address] images of the Chest were obtained with 100 cc Omnipaque-[address] angiography protocol was utilized and reformatted MIP and 3-D images were performed on the worksta tion. The thyroid and thoracic inlet demonstrate no abnormalities. There are no mediastinal masses. There are mildly prominent right subpectoral and right axillary lymph node with right axillary nodule measuring 3.3 cm x 2.4 cm in image 25 series 3. There are c alcified subcarinal and hilar lymph nodes likely from old granulomatous disease. The heart is within normal limits in size. there is only minimal pericardial fluid. There is peripheral eccentric thickening of distal aortic arch extending into descending thoracic aorta and upper abdominal aorta best seen on images 25-85 series 3 suggestive of probable aortic dissection, possibly of intramural hematoma type dissection. Descending aorta demonstrates no evidence of intimal flap. A pulmonary arteries demonstrate no filling defects. Lung windows demonstrate no infiltrates or suspicious dominant pulmonary masses. Visualized portions of the upper abdomen demonstrate upper abdominal aortic involvement of descending thoracic aortic dissection, better described on CT abdomen report, dictated separately. IMPRESSION: Eccentric crescentic nonenhancing thickening of distal aortic arch and descending thoracic aorta extending into upper abdominal aorta, likely aortic dissection, possibly of intramural hematoma type dissection. No CT evidence of a descending thoracic aortic involvement or great vessel involvement, at this time. Please see CT abdomen report, dictated separately for full details of abdominal aortic findings. Moderately prominent right axillary and right subpectoral lymph nodes of unknown significance. Followup imaging recommended. Ultrasound guided FNA histologic sampling could be performed if necessary depending on clinical history and physical exam findings. No significant pericardial or pleural effusions or lung consolidation. Diffuse coarse echotexture of liver suggesting fat infiltration. CRITICAL FINDINGS: The acute findings were urgently communicated to Dr. Kelley of the ED at 1147 hours on January 04, 2011 Signed (Authenticated, Released) Date-Time: 01/04/2011 1209 Observer [employer]- LIS CLARK M.D., Staff Radiologist Dictated ByRk CLARK M.D., Staff Radiologist Staff Physician- LIS CLARK M.D., Staff Radiologist Authenticated ByRk CLARK M.D., Staff Radiologist Performing Organization Address [facility] one Number MCKESSON * CBC and Diff (manual diff if necessary) (01/04/2011 10:54 AM CDT) WBC 11.31 (H) 4.00 - 11.00 TH/UL SUNQUEST RBC 5.30 4.31 - 5.84 MIL/UL [facility] Hemoglobin 15.4 13.0 - 17.0 G/DL SUNQUEST Hematocrit 44 40 - 50 % SUNQUEST MCV 83 80 - 99 FL SUNQUEST MCH 29 27 - 34 PG SUNQUEST MCHC 35 32 - 36 % SUNQUEST RDW 13.4 9.0 - 14.5 % SUNQUEST Platelet Count 345 140 - 400 TH/UL SUNQUEST MPV 10.0 9.4 - 12.3 FL SUNQUEST % Neutrophils 58 45 - 78 % SUNQUEST %Lymphocytes 32 15 - 47 % SUNQUEST %Monocytes 7 0 - 12 % SUNQUEST %Eosinophils 3 0 - 7 % SUNQUEST %Basophils 1 0 - 2 % SUNQUEST # Granulocytes 6.52 1.7 - 6.8 TH/UL SUNQUEST # Lymphocytes 3.63 (H) 1.0 - 3.3 TH/UL SUNQUEST # Monocytes 0.75 0.2 - 0.9 TH/UL SUNQUEST # Eosinophils 0.29 0.0 - 0.4 TH/UL SUNQUEST # Basophils 0.12 (H) 0.0 - 0.1 TH/UL SUNQUEST Specimen Blood Performing Organization Address [facility] one Number SLRL [address] [place], [place] [address] SUNQUEST * Comprehensive Metabolic Panel (01/04/2011 10:54 AM CDT) Albumin 4.1 3.5 - 5.0 G/DL SUNQUEST Aspartate 44 (H) 15 - 41 IU/L SUNQUEST Aminotransferas e Alanine 45 14 - 63 IU/L SUNQUEST Aminotransferas e Bilirubin Total 0.8 0.3 - 1.4 MG/DL SUNQUEST Protein Total 7.6 6.0 - 8.0 G/DL SUNQUEST Serum Calcium 9.4 8.8 - 10.5 MG/DL SUNQUEST Creatinine 1.1 0.6 - 1.3 MG/DL SUNQUEST Glucose 163 (H) 65 - 100 MG/DL SUNQUEST Alkaline 118 42 - 128 IU/L SUNQUEST Phosphatase Sodium 146 (H) 134 - 144 MEQ/L SUNQUEST Potassium 3.4 (L) 3.5 - 5.1 MEQ/L SUNQUEST Chloride 111 101 - 111 MEQ/L SUNQUEST Carbon Dioxide 25 23 - 32 MEQ/L SUNQUEST Anion Gap 10 3 - 15 SUNQUEST Blood Urea 12 8 - 26 MG/DL SUNQUEST Nitrogen eGFR Male AA 88 SUNQUEST Comment: Chronic Kidney Disease less than 60 mL/min/1.73 sq.m Kidney failure less than 15 mL/min/1.73 sq.m eGFR Male 73 SUNQUEST Non-AA Comment: Chronic Kidney Disease less than 60 mL/min/1.73 sq.m Kidney failure less than 15 mL/min/1.73 sq.m Specimen Blood Performing Organization Address [facility] one Number SLRL [address] [place] [phone] SUNQUEST * Lipase (01/04/2011 10:54 AM CDT) Lipase 23 18 - 51 U/L SUNQUEST Specimen Blood Performing Organization Address [facility] one Number SLRL [address] [place] [phone] SUNQUEST * Prothrombin Time/INR (01/04/2011 10:54 AM CDT) Protime 12.9 11.7 - 14.3 SEC SUNQUEST INR 1.0 0.9 - 1.1 SUNQUEST Specimen Blood Performing Organization Address [facility]/Zipcode Ph one Number ANKITRL [address] [place] [phone] SUNQUEST * APTT (01/04/2011 10:54 AM CDT) APTT 28 22 - 34 SEC SUNQUEST Specimen Blood Performing Organization Address [facility] one Number GEREMIASL [address] [place] [phone] SUNQUEST * Troponin (01/04/2011 10:54 AM CDT) Troponin <0.01 0.00 - 0.07 NG/ML SUNQUEST Comment: Troponin Value Interpretation 0.00 - 0.07 Healthy 0.08 - 0.50 Increased Cardiac Risk >0.50 Myocardial Infarction Troponin may not become elevated until 6 to 8 hours after onset of symptoms. Specimen Blood Performing Organization Address [facility] one Number AgustinL [address] [place] [phone] SUNQUEST * D Dimer (01/04/2011 10:54 AM CDT) D Dimer 10.50 (H)Comment: Cutoff value 0.00 - 0.40 UG/ ML SUNQUEST for exclusion of venous FEU thromboembolism is <0.40 ug/mL FEU. Specimen Blood Performing Organization Address [facility] one Number LEO [address] [place] [phone] SUNQUEST * B Type Natriuretic Peptide (01/04/2011 10:54 AM CDT) B-Type 29 0 - 100 PG/ML SUNQUEST Naturiuretic Peptide Specimen Blood Performing Organization Address [facility] one Number AgustinL [address] [place] [phone] SUNQUEST * XR Chest single view frontal (01/04/2011 10:42 AM CDT) Specimen Narrative Performed At [facility] Patient: GIACOMO TRAYLOR Phone #: UniYu Rec#: [id number] Sex: M : 1965 Javed#: [id number] Location: [facility] Check-in#: [id number] Procedure Requested: [id number] DX CHEST SIN GLE VIEW Reason For Exam: CHEST PAIN Exam Ordered: 01/04/2011 103 9 Exam Date/Time: 01/04/2011 1045 Check-in Date/Time: 01/04/2011 1039 Attendin EMERGENCY, PHYSI LOWELL "" Requestin CLIVE KELLEY Referring: , Primary Care: , DX CHEST SINGLE VIEW INDICATION: CHEST PAIN. COMPARISON STUDY: None. FINDINGS: Apical lordotic positioning. Lungs: No pulmonary nodule, mass or con solidation. Mild pulmonary venous hypertension. Pleura: No pleural effusion or pneumoth orax. Heart and Mediastinum: The cardiomedias tinal silhouette is normal. The great vessels of the thorax are normal. Bones: The visualized skeletal structur es are within normal limits. IMPRESSION: No acute cardiopulmonary process. Signed (Authenticated, Released) Date-T natasha: 01/04/2011 1102 Observer [employer]- NINA RICHARDSON M.D., Radiologist Dictated By- NINA RICHARDSON M.D., Radio logist Staff Physician- NINA RICHARDSON M.D., R adiologist Authenticated By- NINA RICHARDSON M.D., Radiologist Procedure Note Interface, Rad Conversion - 09/06/2013 1:55 PM FOOT PIECE ASSEMBLER REPORT Patient: GIACOMO TRAYLOR Phone #: Med Rec#: [id number] Sex: M : 1965 Javed#: [id number] Location: [facility] Check-in#: [id number] Procedure Requested: [id number] DX CHEST SINGLE VIEW Reason For Exam: CHEST PAIN Exam Ordered: 01/04/2011 1039 Exam Date/Time: 01/04/2011 1045 Check-in Date/Time: 01/04/2011 1039 Attendin EMERGENCY, PHYSICIAN "" Requestin CLIVE KELLEY Referring: , Primary Care: , DX CHEST SINGLE VIEW INDICATION: CHEST PAIN. COMPARISON STUDY: None. FINDINGS: Apical lordotic positioning. Lungs: No pulmonary nodule, mass or consolidation. Mild pulmonary venous hypertension. Pleura: No pleural effusion or pneumothorax. Heart and Mediastinum: The cardiomediastinal silhouette is normal. The great vessels of the thorax are normal. Bones: The visualized skeletal structures are within normal limits. IMPRESSION: No acute cardiopulmonary process. Signed (Authenticated, Released) Date-Time: 01/04/2011 1102 Observer [employer]- NINA RICHARDSON M.D., Radiologist Dictated By- NINA RICHARDSON M.D., Radiologist Staff Physician- NINA RICHARDSON M.D., Radiologist Authenticated By- NINA RICHARDSON M.D., Radiologist Performing Organization Address City/State/Zipcode Ph one Number [facility] * CT Abdomen Pelvis w contrast (01/04/2011 10:30 AM CDT) Specimen Narrative Performed At REPORT [facility] Patient: GIAOCMO TRAYLOR Phone #: UniYu Rec#: [id number] Sex: M : 1965 Javed#: [id number] Location: [facility] Check-in#: [id number] Procedure Requested: [id number] CT ABD PELVI S WITH CONTRAST Reason For Exam: ABDOMINAL PAIN S PECIFY SITE Exam Ordered: 01/04/2011 105 4 Exam Date/Time: 01/04/2011 1140 Check-in Date/Time: 01/04/2011 1054 Attendin EMERGENCY, PHYSI LOWELL "" Requestin CLIVE KELLEY Referring: , Primary Care: , CT ABD PELVIS WITH CONTRAST Indication: ABDOMINAL PAIN SPECIFY SI TE Exam Date: Jan 04, 2011 11:40:[address] images were obtained through the abdomen and pelvis with 75 mL Omnipaque 350contrast.Sagittal and C oronal reformatted images were performed. Patient received 100 cc of IV contrast during CT chest imaging a few minutes earlier for a total of 175 cc o f Omnipaque 350. Comparison: None The lung bases appear clear. There is d escending thoracic aortic dissection extending to the upper abdom inal aorta abruptly ending near the level of renal arteries on image 37 series 4. The liver demonstrates Diffuse coarse echotexture of liver sug gesting fat infiltration with no lesions. The spleen demonstrates no f ocal lesions. The adrenal glands demonstrate no mass. The pancreas ava ears unremarkable. The gallbladder appears unremarkable. The right kidne y demonstrates no mass calculi or hydronephrosis. The left kidney demon strates small exophytic upper pole cyst on image early one series . Ther e is lower abdominal aortic thickening in prominence measuring 2.7 cm image 54 series 4 without obvious dissection. Iliac arteries appe ar patent. There is mild colonic diverticulosis. No fluid collections ar e identified. Pelvis There are no pelvic fluid collections o r pelvic masses. No definite pelvic lymphadenopathy is detected. uri nary bladder is unremarkable. IMPRESSION: Descending thoracic aortic dissection e xtending to upper abdominal aorta ending abruptly near the level of renal arteries with no significant compromise of renal arterial CT perfusi on at this time. No fluid collections or hemorrhage iden tified. Diffuse coarse echotexture of liver sug gesting fat infiltration. Small left renal cyst. CRITICAL FINDINGS: The acute findings were urgently commun icated to Dr. Kelley at 1148 hours on January 04 2011 Signed (Authenticated, Released) Date-T natasha: 01/04/2011 1150 Observer [employer]- LIS CLARK M.D., Staff Radiologist Dictated By- Manjula FOX M.D. Radiologist Staff Physician- LIS CLARK M.D., Staff Radiologist Authenticated By- LIS CLARK M.D., Staff Radiologist Procedure Note Interface, Rad Conversion - 09/06/2013 1:55 PM FOOT PIECE ASSEMBLER REPORT Patient: GIACOMO TRAYLOR Phone #: UniYu Rec#: [id number] Sex: M : 1965 Javed#: [id number] Location: [facility] Check-in#: [id number] Procedure Requested: [id number] CT ABD PELVIS WITH CONTRAST Reason For Exam: ABDOMINAL PAIN SPECIFY SITE Exam Ordered: 01/04/2011 1054 Exam Date/Time: 01/04/2011 1140 Check-in Date/Time: 01/04/2011 1054 Attendin EMERGENCY, PHYSICIAN "" Requestin CLIVE KELLEY Referring: , Primary Care: , CT ABD PELVIS WITH CONTRAST Indication: ABDOMINAL PAIN SPECIFY SITE Exam Date: Jan 04, 2011 11:40:[address] images were obtained through the abdomen and pelvis with 75 mL Omnipaque 350contrast.Sagittal and Coronal reformatted images were performed. Patient received 100 cc of IV contrast during CT chest imaging a few minutes earlier for a total of 175 cc of Omnipaque 350. Comparison: None The lung bases appear clear. There is descending thoracic aortic dissection extending to the upper abdominal aorta abruptly ending near the level of renal arteries on image 37 series 4. The liver demonstrates Diffuse coarse echotexture of liver suggesting fat infiltration with no lesions. The spleen demonstrates no focal lesions. The adrenal glands demonstrate no mass. The pancreas appears unremarkable. The gallbladder appears unremarkable. The right kidney demonstrates no mass calculi or hydronephrosis. The left kidney demonstrates small exophytic upper pole cyst on image early one series . There is lower abdominal aortic thickening in prominence measuring 2.7 cm image 54 series 4 without obvious dissection. Iliac arteries appear patent. There is mild colonic diverticulosis. No fluid collections are identified. Pelvis There are no pelvic fluid collections or pelvic masses. No definite pelvic lymphadenopathy is detected. urinary bladder is unremarkable. IMPRESSION: Descending thoracic aortic dissection extending to upper abdominal aorta ending abruptly near the level of renal arteries with no significant compromise of renal arterial CT perfusion at this time. No fluid collections or hemorrhage identified. Diffuse coarse echotexture of liver suggesting fat infiltration. Small left renal cyst. CRITICAL FINDINGS: The acute findings were urgently communicated to Dr. Kelley at 1148 hours on January 04 2011 Signed (Authenticated, Released) Date-Time: 01/04/2011 1150 Observer [employer]- LIS CLARK M.D., Staff Radiologist Dictated By- LIS CLARK M.D., Staff Radiologist Staff Physician- LIS CLARK M.D., Staff Radiologist Authenticated By- LIS CLARK M.D., Staff Radiologist Performing Organization Address City/State/[facility] [place] one Number [facility] documented in this encounter Visit Diagnoses Diagnosis Dissection of aorta, thoracic (HCC) Dissection of aorta, thoracic documented in this encounter
--- OUTSIDE RECORDS SUMMARY | 2019-08-27 21:03 | XMS REPORT ---
Author Author Gerry KENNEDY [facility] WALK IN [facility] Address [address] [place] [address] Care Team Providers Care Pediatric Speech Therapist Name Role Phone CHARLES KENNEDY Unavailable PROBLEMS Type Condition ICD9-CM Code AEI54-KI Code Onset Dates Condition S tatus SNOMED Code Problem CAD (coronary artery disease) I25.10 Active 97164526 Problem Gastroesophageal reflux disease with esophagitis K 21.0 Active 727781872 Problem Seasonal allergic rhinitis due to pollen J30.1 Active 35600443 Problem Hypertension I10 Active 1170524 3 Problem Neuropathy G62.9 Active 497268091 Problem Vitamin D deficiency E55.9 Active 74459724 Problem Salivary gland infection K11.20 Activ e 01662836 Problem Dyslipidemia (high LDL; low HDL) E78.5 Active 713229555 Problem Body mass index (BMI) of 38.0-38.9 in adult Z68.38 Active 569817610 Problem Lumbosacral radiculopathy due to osteoarthritis of spine M47.27 Active 2057526 Problem Type 2 diabetes mellitus wit h other specified complication, without long-term current use of insulin E11.69 Active 90245074 Problem Morbid (severe) obesity due to excess calories E66 .01 Active 162861474 ALLERGIES No Known Allergies ENCOUNTERS Encounter Location Date Diagnosis [facility] [id number] [place] [phone] Jun, [facility] WALK IN [facility] [id number] [place] [phone] Jun, Salivary gland infection K11 .20 and Hypertension I10 [facility] [id number] [place] [phone] Jun, Lumbosacral radiculopathy du e to osteoarthritis of spine M47.27 [facility] [address] [id number] 13 May, 2018 Type 2 diabetes mellitus wit h other specified complication, without long-term current use of insulin E11.69 ; Dyslipidemia (high LDL; low HDL) E78.5 ; Hypertension I10 ; CAD (coronary artery disease) I25.10 and Gastroesophageal reflux disease with esophagitis K21.[address] [address] 12 May, 2018 Hypertension I10 [place] [address] [address] May, Lumbosacral radiculopathy du e to osteoarthritis of spine M47.27 [place] [address] [address] Apr, Lumbosacral radiculopathy du e to osteoarthritis of spine M47.27 ; Right anterior shoulder pain M25.511 and Seasonal allergic rhinitis due to pollen J30.1 [place] [address] [address] Apr, Right medial knee pain M25.5 61 [place] [address] [address] Mar, [place] [address] [address] Mar, Right medial knee pain M25.5 61 [place] [address] [address] Feb, Right medial knee pain M25.5 61 [place] [address] [address] Feb, Hypertension I10 ; Type 2 di abetes mellitus with other specified complication, without long-term current use of insulin E11.69 ; Dyslipidemia (high LDL; low HDL) E78.5 ; Vitamin D deficiency E55.9 ; Neuropathy G62.9 ; CAD (coronary artery disease) I25.10 ; Gastroesophageal reflux disease with esophagitis K21.0 ; Seasonal allergic rhinitis due to pollen J30.1 and Transient visual loss of both eyes H53.123 [facility] [address] [id number] [address] [place] [phone] 09 Jan, 2018 Right medial knee pain M25.5 61 [facility] [address] [id number] [address] [place] [phone] 09 Jan, 2018 [facility] [address] [id number] [address] [place] [phone] Dec, [facility] WALK IN [facility] [address] [id number] [address] [place] [phone] 15 Dec, 2017 Acute maxillary sinusitis, r ecurrence not specified J01.00 [facility] [address] [id number] [address] [place] [id number] 15 Dec, 2017 [facility] [address] [id number] [address] [place] [phone] 07 Dec, 2017 Right medial knee pain M25.5 61 [facility] [address] [id number] [address] [place] [phone] November, [facility] [address] [id number] [address] [place] [phone] 02 Nov, 2017 Right medial knee pain M25.5 61 [facility] [address] [id number] [address] [place] [phone] Oct, Right medial knee pain M25.5 61 [facility] [address] [id number] [address] [place] [phone] Sep, Type 2 diabetes mellitus wit hout complication E11.9 ; Controlled substance agreement signed Z79.899 ; CAD (coronary artery disease) I25.10 ; Gastroesophageal reflux disease with esophagitis K21.0 ; Hyperlipidemia, unspecified hyperlipidemia type E78.5 ; Lumbosacral radiculopathy due to osteoarthritis of spine M47.27 ; Morbid (severe) obesity due to excess calories E66.01 ; Body mass index (BMI) of 38.0-38.9 in adult Z68.38 and Neuropathy G62.9 [place] [address] [facility] [id number] [address] [place] [phone] Aug, Right medial knee pain M25.5 61 [place] [address] [facility] [id number] [address] [place] [phone] Aug, Controlled substance agreeme nt signed Z79.899 [place] [address] [address] Jul, Right medial knee pain M25.5 61 [place] [address] [place] [phone] Jun, Right medial knee pain M25.5 61 [place] [address] [place] [id number] [place] [phone] May, Lumbosacral radiculopathy du e to osteoarthritis of spine M47.27 and Chondromalacia, right knee M94.261 [place] [address] [place] [phone] May, Right medial knee pain M25.5 61 and Seasonal allergic rhinitis due to pollen J30.1 [place] [address] [place] [id number] [address] [place] [phone] 30 Apr, 2017 Right medial knee pain M25.5 61 and Gastroesophageal reflux disease with esophagitis K21.0 [place] [address] [id number] 03 Apr, 2017 Type 2 diabetes mellitus wit hout complication E11.9 ; Neuropathy G62.9 ; Hypertension I10 ; Vitamin D deficiency E55.9 ; Hypertriglyceridemia E78.1 ; Gastroesophageal reflux disease with esophagitis K21.0 ; CAD (coronary artery disease) I25.10 and Right medial knee pain M25.561 [place] [address] [facility] [id number] [address] [place] [phone] 15 Mar, 2017 Right medial knee pain M25.5 61 and Type 2 diabetes mellitus without complication E11.9 [place] [address] [place] [id number] [place] [phone] Feb, Chondromalacia, right knee M 94.261 and Lumbosacral radiculopathy due to osteoarthritis of spine M47.27 [place] [address] [place] [address] [id number] [place] [phone] Feb, Parotitis K11.20 [place] [address] [phone] Feb, Type 2 diabetes mellitus wit hout complication E11.9 ; Neuropathy G62.9 ; Hypertension I10 ; Vitamin D deficiency E55.9 ; Hyperlipidemia, unspecified hyperlipidemia type E78.5 ; Morbid obesity due to excess calories E66.01 ; CAD (coronary artery disease) I25.10 ; Gastroesophageal reflux disease with esophagitis K21.0 ; Lymphadenopathy, periauricular R59.0 ; Right medial knee pain M25.561 and Parotitis K11.20 [place] [address] [place] [id number] [place] [phone] Jan, [facility] [address] [id number] [place] [id number] Jan, Dental examination Z01.20 an d Dental caries K02.9 [place] [id number] [place] [phone] Jan, Vitamin D deficiency E55.9 [place] [address] [place] [id number] [place] [phone] Jan, Right medial knee pain M25.5 61 [place] [id number] [place] [phone] Jan, Type 2 diabetes mellitus wit hout complication E11.9 ; History of SC (myocardial infarction) I25.2 ; Hypertension I10 ; Gastroesophageal reflux disease with esophagitis K21.0 ; Seasonal allergic rhinitis due to pollen J30.1 and Right medial knee pain M25.561 [place] [address] [place] [address] [id number] [place] [phone] Dec, Seasonal allergic rhinitis d ue to pollen J30.1 [place] [address] [address] November, Right medial knee pain M25.5 61 [place] [address] [address] November, Other chest pain R07.89 ; CA D (coronary artery disease) I25.10 ; Hypertension I10 and Hyperlipidemia, unspecified hyperlipidemia type E78.5 [place] [address] [address] November, Hypertension I10 [place] [address] [address] Oct, Hypertriglyceridemia E78.1 [place] [address] [address] Oct, Type 2 diabetes mellitus wit hout complication E11.9 ; Neuropathy G62.9 ; History of SC (myocardial infarction) I25.2 ; Hypertension I10 ; Vitamin D deficiency E55.9 ; Hypertriglyceridemia E78.1 ; Right medial knee pain M25.561 ; Gastroesophageal reflux disease with esophagitis K21.0 and Nausea R11.0 [place] [address] [address] Sep, [facility] [address] [id number] Jul, Dental caries K02.9 and [place] al examination Z01.20 [facility] [id number] [place] [id number] Jul, [place] [address] [phone] Jun, [facility] [id number] [place] [id number] Jun, Dental examination Z01.20 [place] [address] [address] Jun, [place] [address] [place] [id number] [place] [phone] Jun, [place] [address] [address] Jun, Right medial knee pain M25.5 61 ; Acute non-recurrent maxillary sinusitis J01.00 and Hypertension I10 [place] [address] [address] 04 Apr, 2016 Type 2 diabetes mellitus wit hout complication E11.9 ; Neuropathy G62.9 ; Hypertension I10 ; Hypertriglyceridemia E78.1 ; Right medial knee pain M25.561 ; Morbid obesity due to excess calories E66.01 ; CAD (coronary artery disease) I25.10 ; Seasonal allergic rhinitis due to pollen J30.1 and Acute non- recurrent frontal sinusitis J01.10 [place] [address] [address] Jan, Type 2 diabetes mellitus wit hout complication E11.9 ; Neuropathy G62.9 ; History of SC (myocardial infarction) I25.2 ; Hypertension I10 ; Vitamin D deficiency E55.9 ; Hypertriglyceridemia E78.1 ; Right medial knee pain M25.561 and Morbid obesity due to excess calories E66.01 [place] [address] [place] [id number] [place] [phone] November, [place] [address] [address] November, Type 2 diabetes mellitus wit hout complication E11.9 ; General medical exam Z00.00 ; Neuropathy G62.9 ; History of SC (myocardial infarction) I25.2 ; History of aortic aneurysm repair Z98.89 ; History of vitamin D deficiency Z86.39 ; Hypertension I10 and History of high cholesterol Z86.39 [place] [address] [place] [id number] [place] [phone] Sep, Diabetes mellitus E11.9 ; Ne uropathy G62.9 ; Hypertension I10 ; CAD (coronary artery disease) I25.10 and Hypertriglyceridemia E78.1 [facility] [address] [facility] [id number] [address] [place] [phone] Sep, [facility] [address] [facility] [id number] [address] [place] [phone] 24 Aug, 2015 [facility] [address] [facility] [id number] [address] [place] [phone] Jun, [place] [address] [facility] [id number] [address] [place] [phone] Jun, Type 2 diabetes mellitus wit hout complication E11.9 ; General medical exam Z00.00 ; Neuropathy G62.9 ; History of SC (myocardial infarction) I25.2 ; History of aortic aneurysm repair Z98.89 ; Flank pain R10.9 ; History of vitamin D deficiency Z86.39 ; Hypertension I10 and History of high cholesterol Z86.39 IMMUNIZATIONS No Known Immunizations SOCIAL HISTORY Never Assessed REASON FOR VISIT Left ear pain and left sided soreness in throat - ENDY Mendes PLAN OF CARE Activity Details Follow Up if not improving with PCP or reg follow up Reason: VITAL SIGNS Height 67 in 2018-06-18 Weight 249.8 lbs 2018-06-18 Temperature 98.7 degrees Fahrenheit 2018-06-18 Heart Rate 72 bpm 2018-06-18 Respiratory Rate 22 2018-06-18 BMI 39.12 kg/m2 2018-06-18 Blood pressure systolic 144 mmHg 2018-06-18 Blood pressure diastolic 94 mmHg 2018-06-18 MEDICATIONS Medication Instructions Dosage Frequency Start Date End Date Duration S tatus Glucocard Expression Test - In Vitro 2 times a day as directed 12h 15 Feb, 2017 Active Atorvastatin Calcium 10 mg Orally Once a day 1 tablet 24h 10 2016 90 days Active Aspirin Adult Low Dose 81 MG Orally Once a day 1 tablet 24h 90 days Active Cetirizine HCl 10 mg Orally Once a day 1 tablet 24h 04 Apr, 2016 Active Lisinopril 20 MG Orally Once a day 1 tablet 24h 11 Jun, 2015 90 days Active Ondansetron 4 MG Orally every 8 hrs 1 tablet on the tong ue and allow to dissolve 8h Oct, 10 days Active Coreg 6.25 MG Orally 2 times a day 1 tablet 12h 90 days Active Gabapentin 100 MG TAKE ONE CAPSULE BY MOUTH ONCE DAILY AT BEDTIM E Active Augmentin 875-125 MG Orally every 12 hrs 1 tablet 12h Jun, 10 day(s) Active Fluticasone Propionate 50 MCG/ACT Nasally Once a day 1 spray in each nostril 24h Apr, 30 days Active Plavix 75 MG Orally Once a day 1 tablet 24h Jun, 90 days Active Hydrocodone-Acetaminophen 7.5-325 MG Orally every 6 hrs 1 tablet as needed 6h Jun, Active Nitroglycerin 0.4 MG Sublingual one tablet for ch est pain every 5 minutes x 3 doses then to the ER as directed Jun, A ctive Pantoprazole Sodium 20 mg Orally Once a day TAKE ONE TABLET BY M OUTH ONCE DAILY 24h 90 Active Metformin HCl 1000 MG Orally 2 times a day TAKE ONE TABLET B Y MOUTH TWICE DAILY WITH MEALS 12h 90 Active RESULTS No Results PROCEDURES No Known procedures INSTRUCTIONS MEDICATIONS ADMINISTERED No Known Medications MEDICAL (GENERAL) HISTORY Type Description Date Medical History Diabetes Type II Medical History Heart Stents x2 2010- Bare metal stent t o OM-2013 [facility] Medical History Hypertension Medical History 2010- [facility]- 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 Medical History 4.2cm lymphnode right axilla Medical History 07/2013- 1.7 cm left renal cyst Medical History 2013-ECHO- EF 75%, normal LA pressures w / mild abnormal LV relaxation Medical History History of SC (myocardial infarction) Medical History History of SC (myocardial infarction) Surgical History Heart Stents x2 Surgical History Dissecting Aorta Hospitalization History dissecting aneurysm/ [place] 2010 Hospitalization History [place] 2012
--- OUTSIDE RECORDS SUMMARY | 2019-08-27 21:03 | XMS REPORT | Encounter Summary ---
Author Author [facility] Organization [facility] Address Unknown Phone Unavailable Care Team Providers Care Death Surveys Coder Name Role Phone Leanne Xiong PCP Unavailable Encounter Details Care Team Description Date Type Department Tomi Goff MD [address] [facility] [address] [place] [address] [phone] 02/14/2011 [facility] [...]
--- OUTSIDE RECORDS SUMMARY | 2019-08-27 21:03 | XMS REPORT | Encounter Summary ---
Author Author [facility] Organization [facility] Address Unknown Phone Unavailable Care Team Providers Care Spot Washer Name Role Phone Leanne Xiong PCP Unavailable Encounter Details Care Team Description Date Type Department 01/09/2011 [facility] [...]
--- OUTSIDE RECORDS SUMMARY | 2019-08-27 21:03 | XMS REPORT | Encounter Summary ---
Author Author [facility] Organization [facility] Address Unknown Phone Unavailable Care Team Providers Care Counterintelligence/Humint Specialist Name Role Phone Leanne Xiong PCP Unavailable Encounter Details Care Team Description Date Type Department 01/10/2011 [facility] [...]
--- OUTSIDE RECORDS SUMMARY | 2019-08-27 21:03 | XMS REPORT | Encounter Summary ---
Author Author [facility] Organization [facility] Address Unknown Phone Unavailable Care Team Providers Care Quality Control Scientist Name Role Phone PCP Unavailable Encounter Details Care Team Description Date Type Department Jos Barone MD [address] [address] [phone] Elias Rankin MD [address] [address] [phone] Dissection of aorta, thoracic (HCC) 01/13/2011 [facility] - Encounter 01/20/2011 Social History Date Tobacco Use Types Packs/Day Years Used Never Assessed Sex Assigned at Date Recorded Not on file Industry Job Start Date Occupation Not on file Not on file Not on file Travel End Travel History Travel Start No recent travel history available. documented as of this encounter Discharge Summaries * Jos Barone MD - 09/06/2013 1:05 AM EQUIPMENT SERVICE TECHNICIAN REPORT Name: GIACOMO TRAYLOR Date of : 1965 Attending Physician: JOS BARONE Date of Admission: 01/13/2011 Date of Discharge: 01/20/2011 The patient does not have a primary care doctor. Dear Dr. Barone, Today I had the pleasure of discharging your patient Mr. Giacomo Traylor from the [facility] following his right femoral artery exposure and thoracic angiogram 10 cm x 26 mm CINDY stent graft placement performed on 01/19/[address] Jos Barone. As you know, Mr. Traylor is a 45-year-old [place] male who is well known to our service. He recently spent 7 days in the hospital for a type B aortic dissection and was discharged on 01/11/2011. He did return on 01/13/2011, and was admitted through the emergency department for abdominal pain. He also described this pain as a constant ache that extended from his chest to his suprapubic area. He did have a repeat CT of his abdomen and pelvis as well as his chest, and these were compared to his previous CT's and it did show that there was an increase in his dissection. Therefore, it was determined that Mr. Traylor would benefit from surgical intervention. Also during this hospitalization, he did have an ultrasound of his abdomen to rule out cholecystitis. The ultrasound did find that there were no gallstones or bile duct dilatation and there was diffuse coarse echo texture of liver suggesting fat infiltration. A HIDA scan was then performed. This also confirmed that the patient was negative for acute cholecystitis. Gallbladder ejection fraction could not be performed due to administration of morphine. Postoperatively Mr. Traylor has done fairly well. He does still have some postoperative pain. We will be sending him home with p.o. Dilaudid 10 mg to be taken every 6 hours as needed for pain as well as Ultram 100 mg p.o. every 4 hours p.r.n. for pain, and ibuprofen 600-800 mg p.o. every 6 hours p.r.n. pain. Mr. Traylor has a dry and intact Aquacel AG dressing in his right groin area. This will need to be removed in 7 days. We have arranged for him to follow up with Dr. Barone in the cardiothoracic surgeon's office on 01/25/2011 at 01:30 p.m. where this dressing will be removed. Mr. Traylor is able to ambulate. He is tolerating a regular diet. We have restarted him on all of his home medications. His blood pressure is well controlled. We have stressed to him the need to establish care with a primary care doctor. We have also asked that he continue with smoking cessation as he does have a history of tobacco abuse. Mr. Traylor's lab work and vital signs are stable, and he will be discharged home today accompanied by his son. DISCHARGE MEDICATIONS: 1. Coreg 25 mg p.o. b.i.d. 2. Dilaudid 10 mg p.o. every 6 hours p.r.n. pain. 3. Norvasc 10 mg p.o. every day. 4. Prilosec 20 mg p.o. every day. 5. Ultram 100 mg p.o. every 4 hours p.r.n. pain. 6. Xanax 0.25 mg p.o. every 6 hours p.r.n. anxiety. 7. Zocor 20 mg p.o. every bedtime. 8. Hydrochlorothiazide 25 mg p.o. every day. 9. Ibuprofen 600 to 800 mg p.o. every 6 hours p.r.n. pain. 10. Lisinopril 10 mg p.o. every day. 11. Colace 100 mg p.o. b.i.d. 12. Aspirin 81 mg p.o. every day. DISCHARGE DIAGNOSES: 1. Type B aortic dissection. 2. Gastroesophageal reflux disease. 3. Hypertension. 4. Pre diabetes. 5. Metabolic syndrome. 6. Former tobacco abuse. X-RAY AND LABORATORY DATA: Sodium 137, potassium 4.1, chloride 105, carbon dioxide 25, BUN 13, creatinine 0.9. CBC, white blood cell count 11.01, hemoglobin 11.6 hematocrit 34, platelet count 347. PHYSICAL EXAMINATION: VITAL SIGNS: The most recent vital signs are as follows, temperature 98.7, pulse 59-67, respiratory rate 18, blood pressure 111/59, and oxygenation saturation 93% on room air. DISMISSAL PLAN: Mr. Traylor will be discharged home today accompanied by his son. We ask that Mr. Traylor follow up with Dr. Barone in 1 week on 01/25/2011 at 01:30 p.m. at the Cardiothoracic Surgeon's office to have his Aquacel AG dressing removed from his right groin area. We also asked that he follow up with General Surgery in 2 weeks. We have discussed with Mr. Traylor about establishing care with the primary care doctor. We have provided him with education about smoking cessation and highly encourage him to continue to not smoke. We also ask that while he takes narcotic pain medication that he does not operate a motor vehicle. We also recommend that he take an [id number] stool softener of his choice as a common side effect of narcotic pain medication as constipation. Mr. Traylor has received extensive discharge instructions including his medications, when he should take these medications, what they are, and what their purpose is. He has also been given contact information if he has any questions or concerns when he does arrive home. Mr. Traylor verbalizes understanding of these discharge instructions and plans to follow up as recommended. Mr. Traylor should follow up with [facility] in 3 to 4 weeks for alf blood pressure management as recommended in his previous discharge from the hospital on January 11, 2011. We thank you for the opportunity to participate in Mr. Traylor's care. If you should have any questions or concerns, please do not hesitate to contact us at [phone]. Jos Barone MD Dictated By: Madeline Chan APN cc: AMENDED REPORT [facility] [id number] 01/20/2011 PMENT SERVICE TECHNICIAN documented in this encounter Medications at Time of Discharge Start Date End Date Medication Sig Dispensed Refills 02/10/2015 fenofibrate micronized take 1 1 0 (ANTARA) 43 MG capsule capsule (43MG) by oral route every day documented as of this encounter H&P Notes * Elias Rankin MD - 09/06/2013 1:09 AM EQUIPMENT SERVICE TECHNICIAN REPORT Name: GIACOMO TRAYLOR Date of : 1965 Attending Physician: ELIAS RANKIN Date of Admission: 01/13/2011 CHIEF COMPLAINT: Abdominal pain. HISTORY OF PRESENT ILLNESS: The patient is a 45 him who was recently discharged on 01/11/2011 after a one week admission for type B aortic intramural hematoma/dissection. Today the patient complains of continued pain from his chest to his suprapubic area that has been persistent since his discharge from the hospital. He felt somewhat nauseated today but did not vomit. The patient describes his pain as a constant ache, no tearing. He denies any severe radiation of the pain to his back or to his neck. He says that he has not felt well since his discharge, being very lethargic. No fevers or chills. He has checked his blood pressure at home but states that it has been ranging in the 100s to 120s systolic. REVIEW OF SYSTEMS: Positive for constipation, chest/abdominal pain, increased waist circumference, otherwise, the patient's ten-point review of systems is further negative except for the items mentioned previously. PAST MEDICAL HISTORY: 1. GERD (gastroesophageal reflux disease). 2. Hypertension. 3. Prediabetes. 4. Metabolic syndrome. 5. Type B aortic dissection. PAST SURGICAL HISTORY: None. FAMILY HISTORY: Mother of an myocardial infarction at age 50. Father at 67 of liver disease. He has a positive family history for CAD and stroke. SOCIAL HISTORY: The patient smoked a pack a day for the last 25 years but says that he quit 5 weeks ago. Denies alcohol or illicit drugs. MEDICATION ALLERGIES: NO KNOWN DRUG ALLERGIES. MEDICATIONS: 1. Coreg 25 mg p.o. b.i.d. 2. Hydrochlorothiazide 25 mg daily. 3. Amlodipine 10 mg daily. 4. Hydromorphone 10 mg p.r.n. 5. Protonix 40 mg daily. RADIOLOGIC/DIAGNOSTIC STUDIES: 1. EKG shows no sinus rhythm with no acute ST changes or T wave inversions. 2. A chest CT showed increase in the descending aortic intramural hematoma with a partial thrombus in the cephalad portion of the dissection with slightly increase from 3.8 cm to 4.4 cm in the descending portion of the dissection compared with the patient's CT scan from his previous admission. 3. Chest x-ray showed no acute cardiopulmonary processes. This was reviewed by myself. PHYSICAL EXAMINATION: VITAL SIGNS: Temperature 98.8, heart rate 74, respiratory rate 18, blood pressure 129/58, oxygen saturation 95% on room air. Weight is 110.3 kg, down from 115.8 kg on discharge. GENERAL: The patient is in no acute distress, alert and oriented x3. His mood is appropriate. Euthymic. HEENT: Pupils are equal, round, and reactive to light and accommodation. Sclerae are anicteric. Mucous membranes are moist without exudates or erythema. CARDIOVASCULAR: Regular S1 and S2, although distant. No murmurs, rubs, or gallops. CHEST: Clear to auscultation without crackles, rhonchi, or wheezes. ABDOMEN: The abdomen is obese, soft, nontender. No masses. Positive bowel sounds. SKIN: Warm and dry without rash or jaundice. NEUROLOGIC: Cranial nerves II-XII were intact. There are no focal neurologic deficits. MUSCULOSKELETAL: Stable gait. No joint deformities. HEMATOLOGY: No bruising. PULSES: Patient's left posterior tibial pulse was absent. Otherwise, bilateral radial and dorsalis pedis pulses were intact as well as right posterior tibial pulse. LABORATORY DATA: BUN 57, creatinine 1.9. This is down slightly from 2.0 when the patient came in at 5:00 yesterday evening. Troponin 0.01. Lipase is 43. Sodium 129, potassium 3.9, chloride 95, bicarbonate 22, glucose 146. White blood cell count 9.2, hemoglobin 12.4, hematocrit 36, platelets 364,000. IMPRESSION: This patient is a 45-year-old male with type B aortic intramural hematoma with evidence of thrombus/dissection. PROBLEM LIST: 1. Type B aortic dissection. Will pursue conservative medical management at this with optimization of the patient's blood pressure. Coagulation parameters will be checked and he will be monitored very closely for any changes in his cardiovascular status. As well as controlling the patient's blood pressure, will adequately control his pain. Patient has not had a bowel movement likely secondary to narcotic-induced constipation. This will be addressed with a bowel regimen to avoid straining. Should the patient's pain continue to be unresolved and acute pain, we may need further imaging to reevaluate the size of this, especially if it is getting bigger. Surgical intervention may be required. 2. Acute renal failure secondary to dehydration. Will treat with IV fluids at this time x1 liter and check a repeat BMP in the morning. Likely this is related to his dehydration from poor oral intake since he has been home from the hospital related to his abdominal discomfort. 3. Metabolic syndrome. 4. Hypertension. As stated in problem #1, we will cautiously treat the patient's blood pressure including Coreg, amlodipine, and hold hydrochlorothiazide secondary to his acute renal failure and use hydralazine p.r.n. 5. Tobacco abuse. The patient quit 5 weeks ago but will continue to advise him to continue not to smoke cigarettes. Elias Rankin MD Dictated By: Tommie Rolle MD cc: PMENT SERVICE TECHNICIAN documented in this encounter Consult Notes * Ana Maria Espinoza MD - 09/06/2013 1:08 AM EQUIPMENT SERVICE TECHNICIAN REPORT Name: GIACOMO TRAYLOR Date of : 1965 Attending Physician: ELIAS RANKIN Date of Consultation: 01/14/2011 REQUESTING PHYSICIAN: Elias Rankin MD REASON FOR CONSULTATION: Renal insufficiency. IMPRESSION: 1. Acute renal insufficiency, likely secondary to intravascular volume depletion (emesis, decreased oral intake) and blood pressure medicines. 2. Type B aortic dissection with increased aneurysm size by CT scan. 3. Hypertension - controlled. 4. Dyslipidemia on therapy. 5. Probable obstructive sleep apnea. 6. Metabolic syndrome. 7. Right axillary lymph node (2.5 cm). RECOMMENDATIONS: 1. Agree with holding hydrochlorothiazide and lisinopril. Continue to hold nonsteroidal anti-inflammatory agents. 2. Continue IV fluids and monitor renal function. 3. Outpatient polysomnogram. 4. Continue statin drug therapy. 5. Abdominal aortic aneurysm/ dissection management per cardiovascular surgery. HISTORY OF PRESENT ILLNESS: The patient is a 45-year-old male who was hospitalized at [facility] 01/03/2011 to 01/11/2011 on the cardiovascular surgery service for a type B aortic dissection. He was managed medically and discharged on 01/11/2011 on hydrochlorothiazide, carvedilol, amlodipine, and lisinopril. The patient states that he has had persistent nausea, vomiting, very poor oral intake, a very dry mouth, diaphoresis, lightheadedness, and he reported no urine output since his discharge until he presented to the emergency room on the evening of 01/13/2011. On presentation, his initial blood pressure was 160/60 with temperature 97.1. A second blood pressure several minutes later was 82/58. The patient was given 1 liter of normal saline. A CT scan of the chest, abdomen, and pelvis showed that the diameter of the distal thoracic aorta was mildly enlarged up to 4.6 cm. His serum creatinine was 2 (up from 1 on 01/07/2011) with BUN 54 compared to 18. There was only 500 mL of urine by straight catheterization. The patient continued to receive intravenous fluids. Hydrochlorothiazide and lisinopril were held. PAST MEDICAL HISTORY: 1. Hypertension. 2. Metabolic syndrome with prediabetes. 3. Probable obstructive sleep apnea. 4. Hyperlipidemia. 5. Tobacco use - discontinued one month prior to this admission. PAST SURGICAL HISTORY: None. MEDICATIONS ON ADMISSION: 1. Carvedilol 25 mg b.i.d. 2. Hydromorphone 10 mg q.6 h. p.r.n. 3. Amlodipine 10 mg q. morning. 4. Prilosec 20 mg q. morning. 5. Tramadol 100 mg q.4 h. p.r.n. 6. Alprazolam 0.25 mg q.6 h. p.r.n. 7. Simvastatin 20 mg at bedtime. 8. Hydrochlorothiazide 25 mg q. morning. 9. Ibuprofen 600 to 800 mg q.6 h. p.r.n. (has not taken). 10. Lisinopril 10 mg q. morning. FAMILY HISTORY: Mother of myocardial infarction at age 50. SOCIAL HISTORY: The patient works with the [employer]. He states he stopped smoking one month prior to the present admission and has not craved cigarettes. He has a 25 pack-year history of tobacco use. Denies alcohol or illicit drug use. He has four children. He is single. REVIEW OF SYSTEMS: A 10-point review of systems is otherwise unremarkable. He has had several stools a day, and he reports that as being normal for him. PHYSICAL EXAMINATION: GENERAL: Overweight white male in no acute distress. VITAL SIGNS: Temperature 99.2, blood pressure 104/54, heart rate 59, respiratory rate 20, weight of 110.3 kg. SKIN: Warm and dry. HEENT: Oral mucosa is very dry. NECK: Supple without thyromegaly. LYMPHATICS: No cervical or supraclavicular adenopathy. LUNGS: Clear. CARDIOVASCULAR: JVP may be slightly elevated at 7 to 8 cm. Normal carotid upstroke and volume. Normal S1 and S2. ABDOMEN: Obese. Bowel sounds present. No organomegaly, mass, or tenderness is appreciated. Negative Ocasio's sign. EXTREMITIES: No clubbing, cyanosis, or edema. LABORATORY STUDIES: WBC 9.8, hemoglobin 12.5, hematocrit 37, platelet count 334,000. Serum sodium 136, potassium 3.9, chloride 102, CO2 24, BUN 42, creatinine 1.5, glucose 119, calcium 8.1, magnesium 2.2. Troponin 0.01. A CT scan of the chest shows a type B aortic dissection in the distal aortic arch up to the upper abdominal aorta. There is a 2.5 cm right axillary lymph node present. IMPRESSION/ PLAN: Thank you for your consultation. Please see recommendations above. Ana Maria Espinoza MD Dictated By: cc: PMENT SERVICE TECHNICIAN documented in this encounter Miscellaneous Notes * Operative Note - Jos Barone MD - 09/06/2013 1:05 AM EQUIPMENT SERVICE TECHNICIAN REPORT Name: GIACOMO TRAYLOR Date of : 1965 Attending Physician: ELIAS RANKIN DATE OF SURGERY: PREOPERATIVE DIAGNOSIS: Type B thoracic aortic dissection versus perforating penetrating ulcer in the mid descending thoracic aorta. POSTOPERATIVE DIAGNOSIS: Type B thoracic aortic dissection versus perforation penetrating ulcer in the mid descending thoracic aorta. OPERATION PERFORMED: 1. Cutdown with exposure of right femoral artery. 2. Thoracic angiography. 3. Deployment of a TAG stent graft in the descending thoracic aorta (10 cm x 26 mm). SURGEON: Jos Barone MD BLEACHING SUPERVISOR: Gunnar Tarango PA-C ANESTHESIOLOGIST: Ba Rivers MD COMPLICATIONS: None. DRAINS: None. ANESTHESIA: General endotracheal. SPECIMEN: None. ESTIMATED BLOOD LOSS: Minimal. COMPLICATIONS: None. INDICATIONS: Mr. Traylor is a 45-year-old male who presented approximately 2-1/2 weeks ago to an outside facility with what was initially interpreted as an ascending dissection. He was subsequently transferred emergently to [facility] where review of his CT scan demonstrated what was felt to be a type B dissection. He had no complications from his type B dissection and his blood pressure was well-controlled. He was ultimately discharged home. However, he returned with further chest pain and abdominal pain. Subsequent repeat CT scans which then I reviewed demonstrated what in retrospect probably was a penetrating, perforating ulcer that created an aortic hematoma rather than a clear dissection. In light of this diagnosis, it was felt prudent to proceed with stent grafting, particularly in light of his readmission with ongoing vague chest discomfort and pain. DESCRIPTION OF PROCEDURE: The patient was taken to the operating room and placed in comfortable supine position, intubated without complications. The patient's chest, abdomen, and groins were prepped and draped in the usual sterile fashion after obtaining arterial and venous monitoring. The right femoral cutdown was done and concentric 5-0 pursestring sutures were placed. We initially accessed the thoracic aorta with a J-wire followed by pigtail catheter and did a thoracic angiogram to andrea and isolate the area for deployment of the stent graft. We then exchanged this for a long mile wire and proceeded to place a #20 [place] sheath and then delivered the tag graft to the appropriate area in the descending thoracic aorta and deployed this. It appeared to be nicely deployed proximally and distally. I elected not to do any ballooning. We did an angiogram at the conclusion and there was no evidence of endoleak with complete exclusion of the area's perforation or penetrating ulcer. The patient had been heparinized prior to inserting any sheaths in the right femoral artery and we proceeded to remove all of the sheaths, close the femoral artery at a good pulse distally and reversed heparin with protamine. He continued to have a good pulse and we closed the groin in multiple layers, did subcuticular for the skin, and placed an Aquacel dressing. The patient tolerated the procedure well. Jos Barone MD Dictated By: cc: PMENT SERVICE TECHNICIAN documented in this encounter Plan of Treatment Not on filedocumented as of this encounter Procedures Comments Procedure Name Priority Date/Time Associated Diag nosis COMPLETE BLOOD COUNT Routine 01/20/2011 4:04 AM CDT BASIC METABOLIC PANEL Routine 01/20/2011 4:04 AM CDT GLUCOSE POINT OF CARE Routine 01/20/2011 1:17 AM CDT HEMOGLOBIN Routine 01/19/2011 8:46 PM CDT GLUCOSE POINT OF CARE Routine 01/19/2011 2:28 PM CDT XR CHEST SINGLE VIEW Routine 01/19/2011 FRONTAL 12:21 PM CDT GLUCOSE POINT OF CARE Routine 01/19/2011 12:06 PM CDT LYTES//HGB/CA POC Routine 01/19/2011 12:05 PM CDT ARTERIAL BLOOD GAS POC + Routine 01/19/2011 COOX A 12:05 PM CDT COMPLETE BLOOD COUNT Routine 01/19/2011 4:41 AM CDT BASIC METABOLIC PANEL Routine 01/19/2011 4:41 AM CDT LIPASE Routine 01/18/2011 1:00 PM CDT HEPATIC FUNCTION PANEL Routine 01/18/2011 1:00 PM CDT AMYLASE Routine 01/18/2011 1:00 PM CDT URINE NITRITE Routine 01/17/2011 10:30 PM CDT URINALYSIS (INCLUDES Routine 01/17/2011 MICROSCOPIC REVIEW, IF 10:30 PM CDT INDICATED) RBCS 2 UNITS Routine 01/17/2011 12:22 PM CDT ANTIBODY SCREEN Routine 01/17/2011 12:22 PM CDT COMPLETE BLOOD COUNT Routine 01/17/2011 12:22 PM CDT COAGULATION SCREEN Routine 01/17/2011 12:22 PM CDT BASIC METABOLIC PANEL Routine 01/17/2011 12:22 PM CDT ALANINE AMINOTRANSFERASE Routine 01/17/2011 12:22 PM CDT ABORH TYPE Routine 01/17/2011 12:22 PM CDT XR CHEST 2 VIEWS (PA AND Routine 01/17/2011 LATERAL) 9:37 AM CDT NM HEPATOBILIARY WO EF Routine 01/17/2011 8:00 AM CDT XR ABDOMEN SINGLE VIEW AP Routine 01/16/2011 2:44 PM CDT US ABDOMEN LIMITED Routine 01/16/2011 9:35 AM CDT HEPATIC FUNCTION PANEL Routine 01/15/2011 3:53 AM CDT COMPLETE BLOOD COUNT Routine 01/15/2011 3:53 AM CDT BASIC METABOLIC PANEL Routine 01/15/2011 3:53 AM CDT TROPONIN Routine 01/14/2011 3:37 AM CDT MAGNESIUM Routine 01/14/2011 3:37 AM CDT HEPATIC FUNCTION PANEL Routine 01/14/2011 3:37 AM CDT COMPLETE BLOOD COUNT Routine 01/14/2011 3:37 AM CDT BASIC METABOLIC PANEL Routine 01/14/2011 3:[address] ABDOMEN PELVIS W Routine 01/13/2011 CONTRAST 8:[address] CHEST W WO CONTRAST Routine 01/13/2011 8:33 PM CDT CREATININE Routine 01/13/2011 8:32 PM CDT BLOOD UREA NITROGEN Routine 01/13/2011 8:32 PM CDT XR CHEST SINGLE VIEW Routine 01/13/2011 FRONTAL 6:43 PM CDT RBCS 2 UNITS Routine 01/13/2011 4:30 PM CDT ANTIBODY SCREEN Routine 01/13/2011 4:30 PM CDT TROPONIN Routine 01/13/2011 4:30 PM CDT LIPASE Routine 01/13/2011 4:30 PM CDT COMPLETE BLOOD COUNT Routine 01/13/2011 4:30 PM CDT BASIC METABOLIC PANEL Routine 01/13/2011 4:30 PM CDT ABORH TYPE Routine 01/13/2011 4:30 PM CDT documented in this encounter Results * Complete Blood Count (01/20/2011 4:04 AM CDT) Only the most recent of 6 results within the time period is included. WBC 11.01 (H) 4.00 - 11.00 TH/UL [facility] RBC 4.03 (L) 4.31 - 5.84 MIL/UL [facility] Hemoglobin 11.6 (L) 13.0 - 17.0 G/DL [facility] Hematocrit 34 (L) 40 - 50 % [facility] MCV 85 80 - 99 FL [facility] MCH 29 27 - 34 PG [facility] MCHC 34 32 - 36 % [facility] RDW 13.3 9.0 - 14.5 % [facility] Platelet Count 347 140 - 400 TH/UL [facility] MPV 9.2 (L) 9.4 - 12.3 FL [facility] Specimen Blood Performing Organization Address City/State/Zipcode Ph one Number [id number] [phone] [place], [place] [address] [facility] * Basic Metabolic Panel (01/20/2011 4:04 AM CDT) Only the most recent of 6 results within the time period is included. Sodium 137 134 - 144 MEQ/L [facility] Potassium 4.1 3.5 - 5.1 MEQ/L [facility] Chloride 105 101 - 111 MEQ/L [facility] Carbon Dioxide 25 23 - 32 MEQ/L [facility] Anion Gap 7 3 - 15 [facility] Creatinine 0.9 0.6 - 1.3 MG/DL [facility] Blood Urea 13 8 - 26 MG/DL [facility] Nitrogen Glucose 111 (H) 65 - 100 MG/DL [facility] Calcium 8.2 (L) 8.8 - 10.5 MG/DL [facility] eGFR Male 92 [facility] Non-AA Comment: Chronic Kidney Disease less than 60 mL/min/1.73 sq.m Kidney failure less than 15 mL/min/1.73 sq.m eGFR Male AA 111 [facility] Comment: Chronic Kidney Disease less than 60 mL/min/1.73 sq.m Kidney failure less than 15 mL/min/1.73 sq.m Specimen Blood Performing Organization Address [facility] one Number [id number] [phone] [place] [phone] [facility] * Glucose Point of Care (01/20/2011 1:17 AM CDT) Only the most recent of 3 results within the time period is included. Glucose 115 (H) 65 - 100 MG/DL [facility] Specimen Blood Performing Organization Address [facility] one Number [id number] [phone] [place] [phone] [facility] * Hemoglobin (01/19/2011 8:46 PM CDT) Hemoglobin 11.8 (L) 13.0 - 17.0 G/DL SUNQUEST Specimen Blood Performing Organization Address [facility] one Number SLRL [id number] [phone] SUNQUEST * XR Chest single view frontal (01/19/2011 12:21 PM CDT) Only the most recent of 2 results within the time period is included. Specimen Narrative [facility] Patient: GIACOMO TRAYLOR Phone #: Med Rec#: [id number] Sex: M : 1965 Javed#: [id number] Location: [facility] 20 Check-in#: [id number] Procedure Requested: [id number] DX CHEST SIN GLE VIEW Reason For Exam: post op Exam Ordered: 01/19/2011 120 1 Exam Date/Time: 01/19/2011 1231 Check-in Date/Time: 01/19/2011 1204 Attendin ELIAS RANKIN " " Requestin JOS BARONE Referrin NO, REFERRING DR Primary Care: ARNEL, FAMILY DX CHEST SINGLE VIEW INDICATION: post op. Intubation. Thorac ic aortic stent placement. COMPARISON STUDY: Chest radiograph prev ious day. FINDINGS: Life Support Devices: There has been pl acement of endotracheal tube with tip approximately 3 cm above elma. Lungs: Low lung volumes. Bibasilar airs pace opacities representing passive atelectasis. Crowding of bronch ovascular structures. Pleura: No pleural effusion or pneumoth orax. Heart and Mediastinum: Placement of erickson nt graft in the descending thoracic aorta. Stable heart size. IMPRESSION: 1. Placement of endotracheal tube in ex pected position. 2. Placement of stent graft in the desc ending thoracic aorta. 3. Low lung volumes with crowding of br onchovascular structures and bibasilar subsegmental atelectasis. ATTESTATION STATEMENT: The staff radiologist has personally re viewed the images and dictated, reviewed or edited the final report. Signed (Authenticated, Released) Date-T natasha: 01/19/2011 1447 Sound Cutter- JAILYN CELIS M.D., Staff Radiologist Dictated By- VANGIE BASS M.D., Radio logist Staff Physician- JAILYN NORTH M.D., Staff Radiologist Authenticated By- JAILYN CELIS M.D., Staff Radiologist Procedure Note Interface, Rad Conversion - 09/06/2013 1:35 PM EQUIPMENT SERVICE TECHNICIAN REPORT Patient: GIACOMO TRAYLOR Phone #: Med Rec#: [id number] Sex: M : 1965 Javed#: [id number] Location: [facility] 20 Check-in#: [id number] Procedure Requested: [id number] DX CHEST SINGLE VIEW Reason For Exam: post op Exam Ordered: 01/19/2011 1201 Exam Date/Time: 01/19/2011 1231 Check-in Date/Time: 01/19/2011 1204 Attendin ELIAS RANKIN "" Requestin JOS BARONE Referrin NO, REFERRING DR Primary Care: NO, FAMILY DX CHEST SINGLE VIEW INDICATION: post op. Intubation. Thoracic aortic stent placement. COMPARISON STUDY: Chest radiograph previous day. FINDINGS: Life Support Devices: There has been placement of endotracheal tube with tip approximately 3 cm above elma. Lungs: Low lung volumes. Bibasilar airspace opacities representing passive atelectasis. Crowding of bronchovascular structures. Pleura: No pleural effusion or pneumothorax. Heart and Mediastinum: Placement of stent graft in the descending thoracic aorta. Stable heart size. IMPRESSION: 1. Placement of endotracheal tube in exp ected position. 2. Placement of stent graft in the desce nding thoracic aorta. 3. Low lung volumes with crowding of bro nchovascular structures and bibasilar subsegmental atelectasis. ATTESTATION STATEMENT: The staff radiologist has personally reviewed the images and dictated, reviewed or edited the final report. Signed (Authenticated, Released) Date-Time: 01/19/2011 1447 Sound Cutter- JAILYN TONG M.D., Staff Radiologist Dictated By- VANGIE BASS M.D., Radiologist Staff Physician- JAILYN TONG M.D., Staff Radiologist Authenticated By- JAILYN TONG M.D., Staff Radiologist Performing Organization Address City/State/Zipcode Ph one Number [place] * Arterial Blood Gas POC + Coox A (01/19/2011 12:05 PM CDT) pH Arterial 7.33 (L) 7.35 - 7.45 UNITS SUNQUEST pCO2 Arterial 43 35 - 45 MM HG SUNQUEST PO2 Arterial 54 (L) 77 - 100 MM HG SUNQUEST Base Excess -3.2 (L) -3.0 - 3.0 MEQ/L SUNQUEST Bicarbonate 22.0 19.0 - 29.0 MEQ/L SUNQUEST Hemoglobin 10.8 (L) 13.0 - 17.0 G/DL SUNQUEST Whole Blood Oxyhemoglobin 89.1 (L) 95.0 - 100.0 % THB SUNQUEST Carboxyhemoglob 1.1 0.0 - 1.5 % THB SUNQUEST in Methemoglobin 0.8 0.0 - 1.5 % THB SUNQUEST O2 Content 13.5 (L) 17.0 - 999.0 ML/DL SUNQUEST Arterial Sample Site Arterial SUNQUEST Mode MV SUNQUEST Fraction of 0.70 % SUNQUEST Inspired Oxygen PEEP/CPAP 8.0 CMH20 SUNQUEST Set Rate 18.00 BPM SUNQUEST Device AC SUNQUEST Tidal Volume 460 ML SUNQUEST Specimen Arterial Performing Organization Address [facility] one Number SLRL [id number] [phone] SUNQUEST * Lytes//HGB/CA POC (01/19/2011 12:05 PM CDT) Ionized Calcium 5.9 (H) 4.5 - 5.3 MG/DL SUNQUEST Sodium 154 (H) 134 - 144 MEQ/L SUNQUEST Potassium 5.4 (H) 3.5 - 5.2 MEQ/L SUNQUEST Hemoglobin 10.8 (L) 13.0 - 17.0 G/DL SUNQUEST Specimen Blood Performing Organization Address [facility] one Number SLRL [id number] [phone] SUNQUEST * Amylase (01/18/2011 1:00 PM CDT) Amylase 50 36 - 128 IU/L SUNQUEST Specimen Blood Performing Organization Address [facility] one Number SLRL [id number] [phone] SUNQUEST * Hepatic Function Panel (01/18/2011 1:00 PM CDT) Only the most recent of 3 results within the time period is included. Albumin 2.6 (L) 3.5 - 5.0 G/DL SUNQUEST Bilirubin 0.2 0.1 - 0.5 MG/DL SUNQUEST Direct Bilirubin Total 0.7 0.3 - 1.4 MG/DL SUNQUEST Alkaline 120 42 - 128 IU/L SUNQUEST Phosphatase Alanine 28 14 - 63 IU/L SUNQUEST Aminotransferas e Aspartate 23 15 - 41 IU/L SUNQUEST Aminotransferas e Protein Total 6.9 6.0 - 8.0 G/DL SUNQUEST Serum Specimen Blood Performing Organization Address [facility] Ph one Number SLRL [id number] [phone] SUNQUEST * Lipase (01/18/2011 1:00 PM CDT) Only the most recent of 2 results within the time period is included. Lipase 31 18 - 51 U/L SUNQUEST Specimen Blood Performing Organization Address [facility] Ph one Number SLRL [id number] [phone] SUNQUEST * Urine Nitrite (01/17/2011 10:30 PM CDT) Nitrite Urine Negative Negative SUNQUEST Specimen Urine Performing Organization Address [facility] one Number SLRL [address] [phone] SUNQUEST * Urinalysis (01/17/2011 10:30 PM CDT) Appearance, Yellow SUNQUEST Urine Specific 1.020 1.001 - 1.030 SUNQUEST [place], UA PH Urine 6.0 5.0 - 8.0 SUNQUEST Hemoglobin Negative Negative SUNQUEST Urine Leukocyte Negative Negative SUNQUEST Esterase Bilirubin Urine Negative Negative SUNQUEST Glucose Urine Negative Negative MG/DL SUNQUEST Ketones Urine Negative Negative MG/DL SUNQUEST Protein Urine Negative Negative MG/DL SUNQUEST Qual Urobilinogen Negative Negative EU/DL SUNQUEST Urine Specimen Urine Performing Organization Address [facility] one Number SLRL [address] [phone] SUNQUEST * Alanine Aminotransferase (01/17/2011 12:22 PM CDT) Alanine 30 14 - 63 IU/L SUNQUEST Aminotransferas e Specimen Blood Performing Organization Address [facility] Ph one Number SLRL [address] [phone] SUNQUEST * Coagulation Screen (01/17/2011 12:22 PM CDT) Protime 15.0 (H) 11.7 - 14.3 SEC SUNQUEST INR 1.2 (H) 0.9 - 1.1 SUNQUEST APTT 34 22 - 34 SEC SUNQUEST Fibrinogen 796 (H) 146 - 390 MG/DL SUNQUEST Assay Specimen Blood Performing Organization Address [facility] one Number SLRL [address] [phone] SUNQUEST * ABORH Type (01/17/2011 12:22 PM CDT) Only the most recent of 2 results within the time period is included. ABORH Type O Positive SUNQUEST Specimen Blood Performing Organization Address [facility] one Number SLRL [address] [phone] SUNQUEST * Antibody Screen (01/17/2011 12:22 PM CDT) Only the most recent of 2 results within the time period is included. Antibody Screen Negative SUNQUEST Specimen Blood Performing Organization Address [facility] one Number SLRL [address] [phone] SUNQUEST * RBCs 2 Units (01/17/2011 12:22 PM CDT) Only the most recent of 2 results within the time period is included. 01 - PRODUCT ID Red Blood Cells SUNQUEST 01 - UNIT [id number] SUNQUEST NUMBER 01 - CROSS Compatible SUNQUEST MATCH 01 - STATUS Canceled SUNQUEST INFO 01 - PRODUCT [id number] SUNQUEST CODE 01 - BLOOD TYPE O Pos SUNQUEST 02 - PRODUCT ID Red Blood Cells SUNQUEST 02 - UNIT [id number] SUNQUEST NUMBER 02 - CROSS Compatible SUNQUEST MATCH 02 - STATUS Canceled SUNQUEST INFO 02 - PRODUCT [id number] SUNQUEST CODE 02 - BLOOD TYPE O Pos SUNQUEST Specimen Blood Performing Organization Address [facility] one Number SLRL [address] [phone] SUNQUEST * XR Chest 2 views (PA and lateral) (01/17/2011 9:37 AM CDT) Specimen Narrative Performed At [facility] Patient: GIACOMO TRAYLOR Phone #: [facility] Rec#: [id number] Sex: M : 1965 Javed#: [id number] Location: [address] [place] [address] Check-in#: [id number] Procedure Requested: [id number] DX CHEST 2 V IEWS Reason For Exam: PRE OP EVAL Exam Ordered: 01/17/2011 080 9 Exam Date/Time: 01/17/2011 0942 Check-in Date/Time: 01/17/2011 0811 Attendin ELIAS RANKIN" " Requestin JOS BARONE Referrin ARNEL, REFERRING DR Primary Care: NO, FAMILY DX CHEST 2 VIEWS INDICATION: Preoperative evaluation. COMPARISON STUDY: January 13, 2011. FINDINGS: Lateral radiograph is comprom ised by superimposition of the upper extremities over the anterior rui st. Lungs: Low lung volumes. Mild bibasilar subsegmental atelectasis. No focal consolidation. Stable pulmonary v asculature. Pleura: No pleural effusion or pneumoth orax. Heart and Mediastinum: The cardiomedias tinal silhouette and great vessels are stable. Skeletal Structures: Mild multilevel de generative changes of the visualized spine. IMPRESSION: Mild bibasilar subsegmental atelectasis . No focal consolidation. ATTESTATION STATEMENT: The Staff Radiologist has personally re viewed the images and dictated, reviewed, or edited the final report. Signed (Authenticated, Released) Date-T natasha: 01/17/2011 1815 Sound Cutter- DON DUMONT M.D., Staff Radiologist Dictated By- LAKEISHA FREITAS M.D., [facility] ent Staff Physician- DON DUMONT M.D., Staff Radiologist Authenticated By- DON DUMONT M.D., Staff Radiologist Procedure Note Interface, Rad Conversion - 09/06/2013 1:38 PM EQUIPMENT SERVICE TECHNICIAN REPORT Patient: GIACOMO TRAYLOR Phone #: Med Rec#: [id number] Sex: M : 1965 Javed#: [id number] Location: [place] [address] Check-in#: [id number] Procedure Requested: [id number] DX CHEST 2 VIEWS Reason For Exam: PRE OP EVAL Exam Ordered: 01/17/2011 08 Exam Date/Time: 01/17/2011941 Check-in Date/Time: 01/17/2011810 Attendin ELIAS RANKIN"" Requestin JOS BARONE Referrin NO, REFERRING DR Primary Care: NO, FAMILY DX CHEST 2 VIEWS INDICATION: Preoperative evaluation. COMPARISON STUDY: January 13, 2011. FINDINGS: Lateral radiograph is compromised by superimposition of the upper extremities over the anterior chest. Lungs: Low lung volumes. Mild bibasilar subsegmental atelectasis. No focal consolidation. Stable pulmonary vasculature. Pleura: No pleural effusion or pneumothorax. Heart and Mediastinum: The cardiomediastinal silhouette and great vessels are stable. Skeletal Structures: Mild multilevel degenerative changes of the visualized spine. IMPRESSION: Mild bibasilar subsegmental atelectasis. No focal consolidation. ATTESTATION STATEMENT: The Staff Radiologist has personally reviewed the images and dictated, reviewed, or edited the final report. Signed (Authenticated, Released) Date-Time: 01/17/20111814 Sound Cutter- DON DUMONT M.D., Staff Radiologist Dictated By- LAKEISHA FREITAS M.D., Resident Staff Physician- DON DUMONT M.D., Staff Radiologist Authenticated By- DON DUMONT M.D., Staff Radiologist Performing Organization Address City/State/Zipcode Ph one Number [facility] * [place] Hepatobiliary wo EF (01/17/2011 8:00 AM CDT) Specimen Narrative Performed At [facility] Patient: GIACOMO TRAYLOR Phone #: Med Rec#: [id number] Sex: M : 1965 Javed#: [id number] Location: [place] [address] Check-in#: [id number] Procedure Requested: [id number] NM HEPATOBIL IARY WO EF Reason For Exam: ABDOMINAL PAIN Exam Ordered: 01/16/2011 140 6 Exam Date/Time: 01/17/2011929 Check-in Date/Time: 01/17/2011 07 Attendin ELIAS RANKIN " " Requestin JOS BARONE Referrin ARNEL, REFERRING DR Primary Care: ARNEL, FAMILY Hepatobiliary scan with gallbladder eje ction fraction Reason for exam: Abdominal pain The patient was initially injected with 5.1 mCi of Tc-99 M tagged Choletec and multiple static images wer e obtained over the next 60 minutes. The patient was then injected with 4.6 mg of morphine and additional static images were obtained over the next 30 minutes. A time/activity curve was formulated. The study shows prompt and homogeneous distribution of the isotope throughout the liver. There is prompt e xcretion into the biliary system without visualization of the gallbladde r within 60 minutes. The small bowel is visualized within 25 minutes. There is no evidence of reflux into the stomach. After administration of morphine at 60 minutes, the gallbladder is subsequently visualized within 10 minut es. Impression: Negative for acute cholecystitis. Gallbladder ejection fraction could not be performed due to administration of morphine. ATTESTATION STATEMENT: The Staff Radiologist has personally re viewed the images and dictated, reviewed, or edited the final report. Signed (Authenticated, Released) Date-T natasha: 01/17/2011 1202 Sound Cutter- JAIME FLORENCE M.D., Staff Radiologist Dictated By- KVNG VIDALES M.D., Re sident Staff Physician- Kami CARR M.D. [facility] Radiologist Authenticated By- JAIME FLORENCE M.D., Staff Radiologist Procedure Note Interface, Rad Conversion - 09/06/2013 1:39 PM EQUIPMENT SERVICE TECHNICIAN REPORT Patient: GIACOMO TRAYLOR Phone #: [employer] Rec#: [id number] Sex: M : 1965 Javed#: [id number] Location: [place] [address] Check-in#: [id number] Procedure Requested: [id number] NM HEPATOBILIARY WO EF Reason For Exam: ABDOMINAL PAIN Exam Ordered: 01/16/2011 1406 Exam Date/Time: 01/17/2011929 Check-in Date/Time: 01/17/2011704 Attendin ELIAS RANKIN "" Requestin JOS BARONE Referrin NO, REFERRING DR Primary Care: NO, FAMILY Hepatobiliary scan with gallbladder ejection fraction Reason for exam: Abdominal pain The patient was initially injected with 5.1 mCi of Tc-99 M tagged Choletec and multiple static images were obtained over the next 60 minutes. The patient was then injected with 4.6 mg of morphine and additional static images were obtained over the next 30 minutes. A time/activity curve was formulated. The study shows prompt and homogeneous distribution of the isotope throughout the liver. There is prompt excretion into the biliary system without visualization of the gallbladder within 60 minutes. The small bowel is visualized within 25 minutes. There is no evidence of reflux into the stomach. After administration of morphine at 60 minutes, the gallbladder is subsequently visualized within 10 minutes. Impression: Negative for acute cholecystitis. Gallbladder ejection fraction could not be performed due to administration of morphine. ATTESTATION STATEMENT: The Staff Radiologist has personally reviewed the images and dictated, reviewed, or edited the final report. Signed (Authenticated, Released) Date-Time: 01/17/2011 1202 Sound Cutter- JAIME FLORENCE M.D., Staff Radiologist Dictated By- KVNG VIDALES M.D., Resident Staff Physician- JAIME FLORENCE M.D., Staff Radiologist Authenticated By- JAIME FLORENCE M.D., Staff Radiologist Performing Organization Address City/State/Zipcode Ph one Number [facility] * XR Abdomen single view AP (01/16/2011 2:44 PM CDT) Specimen Narrative Performed At [facility] Patient: GIACOMO TRAYLOR Phone #: Med Rec#: [id number] Sex: M : 1965 Javed#: [id number] Location: [place] [address] Check-in#: [id number] Procedure Requested: [id number] DX ABDOMEN S MOUSTAPHA VIEW Reason For Exam: ABDOMINAL DISTEN TION Exam Ordered: 01/16/2011 140 8 Exam Date/Time: 01/16/2011 1452 Check-in Date/Time: 01/16/2011 1410 Attendin ELIAS RANKIN " " Requestin POLI CALLES Referrin ARNEL, REFERRING Primary Care: ARNEL, FAMILY DR ZAPATA ABDOMEN SINGLE VIEW Indication: ABDOMINAL DISTENTION Exam Date: Jan 16, 2011 02:52:00 PM Comparison: CT abdomen and pelvis 011 Findings: Gas-filled, normal caliber bowel loops are present within the upper abdomen. No free air, though there is i ncomplete visualization of the right hemidiaphragm. No abnormal calcifications. The visuali zed lower lungs are aerated. Mild degenerative changes in the visualized skeleton. Impression: 1. Nonobstructive bowel gas pattern wit h with gas-filled, normal caliber upper abdominal bowel loops. The degree of gaseous distention of bowel loops has significantly decreased from the CT of the abdomen and pelvis bisque kiln drawer acquisition from 01/13/2011. 2. No free air, though evaluation is li mited due to incomplete visualization of the right hemidiaphrag m. Signed (Authenticated, Released) Date-T natasha: 01/16/2011 7087 Sound Cutter- ANA ANTOINE M.D. , Staff Radiologist Dictated By- ANA ANTOINE M.D., Sta Radiologist Staff Physician- ANA ANTOINE M.D., Staff Radiologist Authenticated By- ANA ANTOINE M.D. , Staff Radiologist Procedure Note Interface, Rad Conversion - 09/06/2013 1:41 PM EQUIPMENT SERVICE TECHNICIAN REPORT Patient: GIACOMO TRAYLOR Phone #: Med Rec#: [id number] Sex: M : 1965 Javed#: [id number] Location: [place] [address] Check-in#: [id number] Procedure Requested: [id number] DX ABDOMEN SINGLE VIEW Reason For Exam: ABDOMINAL DISTENTION Exam Ordered: 01/16/2011 1408 Exam Date/Time: 01/16/2011 1452 Check-in Date/Time: 01/16/2011 1410 Attendin ELIAS RANKIN "" Requestin POLI CALLES Referrin ARNEL, REFERRING Primary Care: ARNEL, FAMILY DR ZAPATA ABDOMEN SINGLE VIEW Indication: ABDOMINAL DISTENTION Exam Date: Jan 16, 2011 02:52:00 PM Comparison: CT abdomen and pelvis 01/13/2011 Findings: Gas-filled, normal caliber bowel loops are present within the upper abdomen. No free air, though there is incomplete visualization of the right hemidiaphragm. No abnormal calcifications. The visualized lower lungs are aerated. Mild degenerative changes in the visualized skeleton. Impression: 1. Nonobstructive bowel gas pattern with with gas-filled, normal caliber upper abdominal bowel loops. The degree of gaseous distention of bowel loops has significantly decreased from the CT of the abdomen and pelvis bisque kiln drawer acquisition from 01/13/2011. 2. No free air, though evaluation is uribe ited due to incomplete visualization of the right hemidiaphragm. Signed (Authenticated, Released) Date-Time: 01/16/2011 7273 Sound Cutter- ANA ANTOINE M.D., Staff Radiologist Dictated By- ANA ANTOINE M.D., Staff Radiologist Staff Physician- ANA ANTOINE M.D., Staff Radiologist Authenticated By- ANA ANTOINE M.D., Staff Radiologist Performing Organization Address City/State/Zipcode Ph one Number [facility] * US Abdomen limited (01/16/2011 9:35 AM CDT) Specimen Narrative Performed At [facility] Patient: GIACOMO TRAYLOR Phone #: Med Rec#: [id number] Sex: M : 1965 Javed#: [id number] Location: [place] [address] Check-in#: [id number] Procedure Requested: US ABDOMEN L IMITED Reason For Exam: abdomen pain Exam Ordered: 01/16/2011 090 6 Exam Date/Time: 01/16/2011 1000 Check-in Date/Time: 01/16/2011 0912 Attendin ELIAS RANKIN " " Requestin Agustin JASSO Referrin ARNEL, REFERRING Primary Care: ARNEL, FAMILY US ABDOMEN LIMITED Indication: abdomen pain Exam Date: Jan 16, 2011 10:00:00 AM Sonographic examination of the right up per quadrant of the abdomen was performed in a limited fashion, as requ ested. The majority of the liver is visualized and demonstrates Diffuse coarse echotexture of liver suggesting fat inf iltration. The common bile duct measures 4 mm in diameter. The gallblad willa appears unremarkable. The pancreas is not visualized due to overl rome bowel gas. The right kidney measures 11.7 cm in length and demonstr ates no hydronephrosis. The visualized portions of the abdominal ao rta and IVC are secured by overlying bowel gas. Impression: The visualized portions of the abdomina l aorta and IVC are secured by overlying bowel gas. No gallstones or bile duct dilatation i s detected. Diffuse coarse echotexture of liver sug gesting fat infiltration. Signed (Authenticated, Released) Date-T natasha: 01/16/2011 1027 Sound Cutter- LIS CLARK M.D., Staff Radiologist Dictated ByManjula AVILA M.D. Radiologist Staff Physician- LIS CLARK M.D., Staff Radiologist Authenticated By- LIS CLARK M.D., Staff Radiologist Procedure Note Interface, Rad Conversion - 09/06/2013 1:41 PM EQUIPMENT SERVICE TECHNICIAN REPORT Patient: GIACOMO TRAYLOR Phone #: Med Rec#: [id number] Sex: M : 1965 Javed#: [id number] Location: [place] [address] Check-in#: [id number] Procedure Requested: US ABDOMEN LIMITED Reason For Exam: abdomen pain Exam Ordered: 01/16/2011905 Exam Date/Time: 01/16/2011 1000 Check-in Date/Time: 01/16/2011911 Attendin ELIAS RANKIN "" Requestin Agustin JASSO Referrin ARNEL, REFERRING Primary Care: ARNEL, FAMILY DR REYNOLDS ABDOMEN LIMITED Indication: abdomen pain Exam Date: Jan 16, 2011 10:00:00 AM Sonographic examination of the right upper quadrant of the abdomen was performed in a limited fashion, as requested. The majority of the liver is visualized and demonstrates Diffuse coarse echotexture of liver suggesting fat infiltration. The common bile duct measures 4 mm in diameter. The gallbladder appears unremarkable. The pancreas is not visualized due to overlying bowel gas. The right kidney measures 11.7 cm in length and demonstrates no hydronephrosis. The visualized portions of the abdominal aorta and IVC are secured by overlying bowel gas. Impression: The visualized portions of the abdominal aorta and IVC are secured by overlying bowel gas. No gallstones or bile duct dilatation is detected. Diffuse coarse echotexture of liver suggesting fat infiltration. Signed (Authenticated, Released) Date-Time: 01/16/2011 1027 Sound Cutter- LIS CLARK M.D., Staff Radiologist Dictated By- LIS CLARK M.D., Staff Radiologist Staff Physician- LIS CLARK M.D., Staff Radiologist Authenticated By- LIS CLARK M.D., Staff Radiologist Performing Organization Address [facility] one Number [facility] * Troponin (01/14/2011 3:37 AM CDT) Only the most recent of 2 results within the time period is included. Troponin 0.01 0.00 - 0.07 NG/ML SUNQUEST Comment: Troponin Value Interpretation 0.00 - 0.07 Healthy 0.08 - 0.50 Increased Cardiac Risk >0.50 Myocardial Infarction Troponin may not become elevated until 6 to 8 hours after onset of symptoms. Specimen Blood Performing Organization Address [facility] one Number [address] [place] [phone] SUNQUEST * Magnesium (01/14/2011 3:37 AM CDT) Magnesium 2.2 (H) 1.4 - 2.0 MEQ/L SUNQUEST Specimen Blood Performing Organization Address [facility] one Number RL [address] [phone] SUNQUEST * CT Abdomen Pelvis w contrast (01/13/2011 8:45 PM CDT) Specimen Narrative Performed At [facility] Patient: GIACOMO TRAYLOR Phone #: Med Rec#: [id number] Sex: M : 1965 Javed#: [id number] Location: [place] [address] Check-in#: [id number] Procedure Requested: [id number] CT ABD PELVI S WITH CONTRAST Reason For Exam: 786.50 CHEST PAIN NOS Exam Ordered: 01/13/2011 205 1 Exam Date/Time: 01/14/2011 1822 Check-in Date/Time: 01/13/20112050 Attendin ELIAS RANKIN " " Requestin ERIC LEVI Referrin NO, REFERRING DR Primary Care: ARNEL, FAMILY CT ABD PELVIS WITH CONTRAST Jan 13, 2011 08:51:00 PM INDICATION: CHEST PAIN NOS Exam: CT of the abdomen and pelvis with IV contrast including delayed images. The patient received 85 cc of Omnipaque 350 without complication. Coronal and sagittal re formatted images were performed. Comparison: Concurrent chest CT, ct ang io head abdomen 08 January 2011. Findings: LOWER CHEST: Please refer to the report of the chest CT of the same day for further details ABDOMEN: No intraperitoneal free air. No intra -abdominal free fluid or fluid collections. No lymphadenopathy. Liver: Fatty liver, with focal fatty sp aring in the gallbladder fossa. Gallbladder and biliary: Dense material in the gallbladder is compatible with vicarious excretion of contrast. No biliary ductal dilatation. Spleen: The spleen appears normal. Pancreas: The pancreas demonstrates kelly ogeneous attenuation. Adrenal glands: The adrenal glands are normal in size and attenuation. Kidneys/ureters: Redemonstration of a 1 .9 cm left renal cyst. The kidneys appear otherwise normal. The ureters are normal in course and caliber. GI tract: Scattered colonic diverticula without evidence of diverticulitis. The stomach, small kacie l, and colon appear otherwise grossly normal. The appendix is juan l in caliber. 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 Mild atherosclerotic calcific ations at the aortic bifurcation. PELVIS: No pelvic free fluid. No pelvic lymph adenopathy. Calcified pelvic phleboliths. Bladder: Air within the urinary bladder , may be related to recent instrumentation. Genital system: The prostate and semi nal vesicles appear grossly normal. SKELETAL STRUCTURES AND SOFT TISSUES: Mild multilevel degenerative disc disea se. The visualized skeletal structures are otherwise grossly norm al. Impression: 1. 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 2. Scattered colonic diverticula withou t evidence of diverticulitis. 3. Stable left renal cyst. 4. Fatty liver. 5. Mild multilevel degenerative disc di sease. ATTESTATION STATEMENT: The staff radiologist has personally re viewed the images and dictated, reviewed or edited the final report. Signed (Authenticated, Released) Date-T natasha: 01/14/2011 1830 Sound Cutter- STONE Sahu, Staff Radiologist Dictated By- SADIA HOWARD M.D., Res ident Staff Physician- STONE CORTEZ M.D. 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 The patient received 85 cc of Omnipaque 350 without complication. Coronal and sagittal reformatted images were performed. Comparison: Concurrent chest CT, ct angio head abdomen 08 January 2011. Findings: LOWER CHEST: Please refer to the report of the chest CT of the same day for further details ABDOMEN: No intraperitoneal free air. No intra-abdominal free fluid or fluid collections. No lymphadenopathy. Liver: Fatty liver, with focal fatty sparing in the gallbladder fossa. Gallbladder and biliary: Dense material in the gallbladder is compatible with vicarious excretion of contrast. No biliary ductal dilatation. Spleen: The spleen appears normal. Pancreas: The pancreas demonstrates homogeneous attenuation. Adrenal glands: The adrenal glands are normal in size and attenuation. Kidneys/ureters: Redemonstration of a 1.9 cm left renal cyst. The kidneys appear otherwise normal. The ureters are normal in course and caliber. GI tract: Scattered colonic diverticula without evidence of diverticulitis. The stomach, small bowel, and colon appear otherwise grossly normal. The appendix is normal in caliber. Vascular structures: Redemonstration of dissection with intramural hematoma of the descending aorta extending to the level of the renal arteries. Mild atherosclerotic calcifications at the aortic bifurcation. PELVIS: No pelvic free fluid. No pelvic lymphadenopathy. Calcified pelvic phleboliths. Bladder: Air within the urinary bladder, may be related to recent instrumentation. Genital system: The prostate and seminal vesicles appear grossly normal. SKELETAL STRUCTURES AND SOFT TISSUES: Mild multilevel degenerative disc disease. The visualized skeletal structures are otherwise grossly normal. Impression: 1. Stable appearance of dissection of th e descending aorta with intramural hematoma extending to the level of the renal arteries. 2. Scattered colonic diverticula without evidence of diverticulitis. 3. Stable left renal cyst. 4. Fatty liver. 5. Mild multilevel degenerative disc dis ease. ATTESTATION STATEMENT: The staff radiologist has personally reviewed the images and dictated, reviewed or edited the final report. Signed (Authenticated, Released) Date-Time: 01/14/2011 1830 Sound Cutter- STONE CORTEZ M.D., Staff Radiologist Dictated By- SADIA HOWARD M.D., Resident Staff Physician- STONE CORTEZ M.D., Staff Radiologist Authenticated By- STONE CORTEZ M.D., Staff Radiologist Performing Organization Address City/State/Zipcode Ph one Number [facility] * CT Chest w wo contrast (01/13/2011 8:33 PM CDT) Specimen Narrative Performed At REPORT [facility] Patient: GIACOMO TRAYLOR Phone #: Med Rec#: [id number] Sex: M : 1965 Javed#: [id number] Location: [place] [address] Check-in#: [id number] Procedure Requested: [id number] CT CHEST W W O CONTRAST Reason For Exam: 786.50 CHEST PAIN NOS Exam Ordered: 01/13/2011 203 1 Exam Date/Time: 01/13/20112054 Check-in Date/Time: 01/13/20112030 Attendin ELIAS RANKIN " " Requestin ERIC LEVI Referrin NO, REFERRING Primary Care: NO, FAMILY CT CHEST W WO CONTRAST INDICATION: Chest pain, history of ao rtic dissection. Comparison: CT chest 08 January 2011, ct an isaac chest 04 January 2011, concurrent CT abdomen. TECHNIQUE: Unenhanced axial images we re obtained through the thoracic aorta. Following the uneventful adminis tration of a bolus of intravenous contrast ( 85 mL of Omnipaque 350 ), th in section axial CT images were obtained through the chest using the CT aorta protocol. Bilateral oblique thin section multiplanar recons tructions were obtained through the aorta. Coronal MIP images were also obtained. FINDINGS: Unenhanced aorta: No mediastinal hemorr abelino or periaortic fluid collection. Redemonstration of concentr ic hyperattenuation extending from the distal aortic arch into the up per abdominal aorta. Enhanced aorta: Redemonstration of type B aortic dissection extending from the distal aortic arch into the up per abdominal aorta with intramural hematoma. The descending tho racic aorta is slightly increased in size now measuring up to 4.6 cm in d iameter (image 31, series 4). No significant atherosclerosis or mural th rombus. Heart and Mediastinum: Coronary arteria l atherosclerotic calcifications. The heart and pericardium are otherwise within normal limits. The pulmonary arteries are unremarkable. Th e visualized portions of the thyroid gland are of normal size and at tenuation. Interval enlargement of a 3.5 x 2.5 cm right axillary lymph node (previously 2.9 x 2.1 cm). No supraclavicular lymphadenopathy. Abelardo cified mediastinal and hilar lymph nodes consistent with remote gran ulomatous disease. No mediastinal, hilar or retrocrural lymph adenopathy. Lungs and Airways: Bilateral dependent and subsegmental atelectasis. Calcified left upper lobe pulmonary nod ule. No indeterminate pulmonary nodule, mass, or consolidation. No endo luminal lesion. Pleura: The pleural spaces are normal. Abdomen: Please refer to the report of the abdomen CT of the same day for further details. Bones and soft tissues: Multilevel dege nerative disc disease. The skeletal structures and soft tissues of the chest wall are otherwise within normal limits. INCIDENTAL FINDINGS: 1. Remote granulomatous disease. 2. Multilevel degenerative disc disease . IMPRESSIONS: 1. Redemonstration of the previously id entified type B aortic dissection and intramural hematoma extending from the distal aortic arch into the upper abdominal aorta. The diameter of the distal thoracic aorta is mildly enlarged up to 4.6 cm in diamete r. 2. Interval enlargement of a nonspecifi c right axillary lymph node now measuring up to 2.5 cm in short axis di mension. This is of unknown etiology and malignancy cannot be exclu ded. 3. Bilateral dependent and subsegmental atelectasis. ATTESTATION STATEMENT: The Staff Radiologist has personally re viewed the images and dictated, reviewed, or edited the final report. 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 Comparison: CT chest 08 January 2011, ct angio chest 04 January 2011, concurrent CT abdomen. TECHNIQUE: Unenhanced axial images were obtained through the thoracic aorta. Following the uneventful administration of a bolus of intravenous contrast ( 85 mL of Omnipaque 350 ), thin section axial CT images were obtained through the chest using the CT aorta protocol. Bilateral oblique thin section multiplanar reconstructions were obtained through the aorta. Coronal MIP images were also obtained. FINDINGS: Unenhanced aorta: No mediastinal hemorrhage or periaortic fluid collection. Redemonstration of concentric hyperattenuation extending from the distal aortic arch into the upper abdominal aorta. Enhanced aorta: Redemonstration of type B aortic dissection extending from the distal aortic arch into the upper abdominal aorta with intramural hematoma. The descending thoracic aorta is slightly increased in size now measuring up to 4.6 cm in diameter (image 31, series 4). No significant atherosclerosis or mural thrombus. Heart and Mediastinum: Coronary arterial atherosclerotic calcifications. The heart and pericardium are otherwise within normal limits. The pulmonary arteries are unremarkable. The visualized portions of the thyroid gland are of normal size and attenuation. Interval enlargement of a 3.5 x 2.5 cm right axillary lymph node (previously 2.9 x 2.1 cm). No supraclavicular lymphadenopathy. Calcified mediastinal and hilar lymph nodes consistent with remote granulomatous disease. No mediastinal, hilar or retrocrural lymphadenopathy. Lungs and Airways: Bilateral dependent and subsegmental atelectasis. Calcified left upper lobe pulmonary nodule. No indeterminate pulmonary nodule, mass, or consolidation. No endoluminal lesion. Pleura: The pleural spaces are normal. Abdomen: Please refer to the report of the abdomen CT of the same day for further details. Bones and soft tissues: Multilevel degenerative disc disease. The skeletal structures and soft tissues of the chest wall are otherwise within normal limits. INCIDENTAL FINDINGS: 1. Remote granulomatous disease. 2. Multilevel degenerative disc disease. IMPRESSIONS: 1. Redemonstration of the previously keyla ntified type B aortic dissection and intramural hematoma extending from the distal aortic arch into the upper abdominal aorta. The diameter of the distal thoracic aorta is mildly enlarged up to 4.6 cm in diameter. 2. Interval enlargement of a nonspecific right axillary lymph node now measuring up to 2.5 cm in short axis dimension. This is of unknown etiology and malignancy cannot be excluded. 3. Bilateral dependent and subsegmental atelectasis. ATTESTATION STATEMENT: The Staff Radiologist has personally reviewed the images and dictated, reviewed, or edited the final report. Signed (Authenticated, Released) Date-Time: 01/14/2011929 Sound Cutter- JAILYN TONG M.D., Staff Radiologist Dictated By- SADIA HOWARD M.D., Resident Staff Physician- JAILYN TONG M.D., Staff Radiologist Authenticated By- JAILYN TONG M.D., Staff Radiologist Performing Organization Address City/[facility] [place] Ph one Number [facility] * Blood Urea Nitrogen (01/13/2011 8:32 PM CDT) Blood Urea 57 (H) 8 - 26 MG/DL SUNQUEST Nitrogen Specimen Blood Performing Organization Address [facility] [place] Ph one Number [facility] [phone] [place], [place] [phone] [place] * Creatinine (01/13/2011 8:32 PM CDT) Creatinine 1.9 (H) 0.6 - 1.3 MG/DL SUNQUEST eGFR Male AA 47 SUNQUEST Comment: Chronic Kidney Disease less than 60 mL/min/1.73 sq.m Kidney failure less than 15 mL/min/1.73 sq.m eGFR Male 39 SUNQUEST Non-AA Comment: Chronic Kidney Disease less than 60 mL/min/1.73 sq.m Kidney failure less than 15 mL/min/1.73 sq.m Specimen Blood Performing Organization Address City/State/Zipcode Ph one Number [facility] [phone] [place], [place] [address] [place] documented in this encounter Visit Diagnoses Diagnosis Dissection of aorta, thoracic (HCC) Dissection of aorta, thoracic documented in this encounter
--- OUTSIDE RECORDS SUMMARY | 2019-08-27 21:03 | XMS REPORT | Encounter Summary ---
Author Author [facility] Organization [facility] Address Unknown Phone Unavailable Care Team Providers Care Vice President Risk Management Name Role Phone PCP Unavailable Encounter Details Care Team Description Date Type Department Dawson Hermosillo MD [address] [facility] [address] [place] [address] [phone] Dissection of aorta, thoracic (HCC) 01/04/2011 [facility] - Encounter 01/11/2011 Social History Date Tobacco Use Types Packs/Day Years Used Never Assessed Sex Assigned at Date Recorded Not on file Industry Job Start Date Occupation Not on file Not on file Not on file Travel End Travel History Travel Start No recent travel history available. documented as of this encounter Discharge Summaries * Dawson Hermosillo MD - 09/06/2013 1:10 AM TRIM MASTER OPERATOR REPORT Name: GIACOMO TRAYLOR Date of : 1965 Attending Physician: DAWSON HERMOSILLO Date of Admission: 01/04/2011 Date of Discharge: 01/11/[address] Rollins, Today I had the pleasure of discharging your patient from the [facility] [place], Mr. Giacomo Traylor, following his in-hospital monitoring of a type B aortic dissection for which he presented on 01/04/2011. Mr. Traylor is a 45-year-old gentleman who was admitted in transfer from [facility] emergency department who started to feel some fluttering in his chest and then noticed some tingling and electrical feeling in both of his legs. He states that he had had some right sided abdominal pain at the time. He presented to the emergency department thinking that he was having a heart attack, however, CT of the chest, abdomen and pelvis showed that he had a descending thoracic aortic dissection extending up to the upper abdominal aorta and ending abruptly near the level of the renal arteries. He was transferred to [facility] the [place] for surgical evaluation and management of his aortic dissection. He was admitted to the CVICU. While in the CVICU under the care of the Embedded Systems Software Developer Mr. Traylor was started on esmolol and Nipride drip for greater blood pressure control. He was started on IV Dilaudid for pain. He has been switched over to oral medications including beta aaron, anita inhibitor, diuretic, and calcium channel aaron and has had good control with systolic blood pressures in the 110-120 range. He has consistently complained of some right sided abdominal pain as well as some low back pain. A repeat CTA of his chest, abdomen and pelvis was performed on 01/08 which did not show any new progression of aortic dissection and no change from the previous scans. A renal ultrasound was performed on 01/11 to evaluate any kidney related reason for this pain and the renal ultrasound did show that he had two cysts on his left kidney, however, no acute process and no renal calculi noted. His urinalysis was negative as well. We feel at this time he is ready for discharge. Ms. Traylor's pain has been controlled on a multi-drug therapy including Dilaudid, Ultram, Motrin, and Xanax. DISCHARGE MEDICATIONS: 1. Dilaudid 10 mg every 4-6 hours as needed. 2. Xanax 0.25 mg every 6 hours as needed for anxiety. 3. Norvasc 10 mg once daily. 4. Coreg 25 mg twice daily. 5. Hydrochlorothiazide 25 mg once daily. 6. Lisinopril 10 mg daily. 7. Nicoderm patch 21 mg every 24 hours [id number] once daily. 8. Zocor 20 mg at bedtime. 9. Motrin 600 mg every 6 hours as needed for pain. 10. Ultram 100 mg every 4 hours as needed for pain. 11. Prilosec 20 mg orally daily. DISCHARGE DIAGNOSES: 1. Type 2 aortic dissection stable. 2. Hypertension. 3. Anxiety. DISCHARGE PLAN: Mr. Traylor will be discharged to home care today. We have asked that he see Dr. Hermosillo in the office in six weeks with a repeat chest, abdomen and pelvis CT with contrast to reevaluate his aortic dissection. If this is stable he will require monitoring every six months by CAT scan to monitor progression of this process. We have informed him that all of his repeat studies have been negative. I have told him that if he has any continued abdominal pain, or any worsening abdominal pain with difficulty urinating, he should return to the hospital. We have also given him prescriptions for all of his blood pressure medicines and we have instructed him to follow up with [facility] for marine oil terminal superintendent blood pressure management in the next four weeks. We have also given him counseling on smoking cessation as he smokes one to one and a half packs per day. We appreciate the opportunity to participate in the care of Mr. Giacomo Traylor. If you should require anything further, please do not hesitate to contact us at [phone]. Dawson Hermosillo MD Dictated By: Vicky Pineda RN, ANP cc: [facility] Wilfred Rollins Jr. MD MASTER OPERATOR documented in this encounter Medications at Time of Discharge Start Date End Date Medication Sig Dispensed Refills 02/10/2015 fenofibrate micronized take 1 1 0 (ANTARA) 43 MG capsule capsule (43MG) by oral route every day documented as of this encounter H&P Notes * Dawson Hermosillo MD - 09/06/2013 1:14 AM TRIM MASTER OPERATOR REPORT Name: GIACOMO TRAYLOR Date of : 1965 Attending Physician: DAWSON HERMOSILLO Date of Admission: 01/04/2011 CHIEF COMPLAINT: Type B aortic dissection. REQUESTING PHYSICIAN: [facility] emergency room physician. HISTORY OF THE PRESENT ILLNESS: This is a 45-year-old [place] male who was admitted to [facility] via transfer from [facility] emergency department. Mr. Traylor states that he started his morning as usual, however, he did start to feel some fluttering in his chest which then he noticed that the bottoms of his feet started to feel hot and he had an electrical feeling in both of his legs. He states after that he had some right-sided abdominal pain and some tingling in both his lower extremities and hips. He did present himself to the emergency department at [facility] thinking that he was having a heart attack. Upon admission to the emergency department, the patient did receive a CT of the chest, abdomen, and pelvis. The CT of the abdomen and pelvis showed a descending thoracic aortic dissection extending to the upper abdominal aorta ending abruptly near the level of the renal arteries with no significant compromise of renal arterial CT perfusion at this time. His chest x-ray showed no acute cardiopulmonary processes. His vital signs have been stable. However, the emergency doctor felt that he needed to be transferred to [facility] for further evaluation and management of his aortic dissection. Dr. Dawson Hermosillo did accept the patient and he is currently in the CV ICU. PAST MEDICAL HISTORY: Gastroesophageal reflux disease. Mr. Traylor reports that he has been in reasonably good health up to this point with the exception of being overweight. PAST SURGICAL HISTORY: Mr. Traylor has had no surgeries thus far. SOCIAL HISTORY: The patient is single. He has 4 children. He works for [employer]. He is a current smoker. He reports smoking 1 pack per day. However, he has been decreasing the number of cigarettes he has been smoking. He has smoked for the past 25 years. He denies any alcohol or illicit drug use. FAMILY HISTORY: Mr. Traylor's mother at the age of 50 from a myocardial infarction. His father at the age of 67 from liver disease. He has a positive family history for heart disease and stroke. CURRENT MEDICATIONS: Mr. Traylor does not take any medications with the exception of an occasional Advil. ALLERGIES: THE PATIENT HAS NO KNOWN DRUG ALLERGIES. HE DOES HAVE AN ALLERGY TO BEE VENOM. HE DENIES ANY ALLERGY TO IV CONTRAST DYE OR TO LATEX. REVIEW OF SYSTEMS: CONSTITUTIONAL: The patient denies fever, chills, fatigue, weight loss or gain. INTEGUMENTARY: The patient denies rash, pruritus, or easy bruisability. HEENT: The patient denies headache, epistaxis, vision changes, hearing loss. RESPIRATORY: The patient denies cough, shortness of air, or hemoptysis. CARDIOVASCULAR: The patient is positive for a "fluttering" feeling in his chest at the onset of his symptoms this morning. He denies any heart palpitations, orthopnea, paroxysmal nocturnal dyspnea, syncope, or edema. The patient also denies angina or chest pain. GASTROINTESTINAL: The patient denies poor appetite. He is positive for indigestion. He denies nausea, vomiting, diarrhea, constipation, hematemesis, hematochezia, or melena. GENITOURINARY: The patient denies nocturia, hematuria, dysuria, urinary urgency or urinary frequency. ENDOCRINE: Patient denies diabetes or thyroid abnormality. HEMATOLOGIC: The patient denies bleeding tendencies or anemia. MUSCULOSKELETAL: The patient denies arthritis, claudication, foot sores, or varicose veins. NEUROLOGIC: Patient denies transient ischemic attack, stroke, seizures. PSYCHOLOGIC: The patient denies depression and anxiety. PHYSICAL EXAMINATION: Mr. Traylor is a 45-year-old Dominican male in no acute distress lying in a hospital bed in the CV ICU. He is well-developed and obese. VITAL SIGNS: He is 170 cm tall. He weighs 108.8 kg. His temperature is 98.9, heart rate 67, respiratory rate 16, blood pressure 136/77, oxygenation saturation 95% on 4 liters nasal cannula. SKIN: Warm and acyanotic. HEENT: Atraumatic, normocephalic. Pupils are equal, round, and reactive to light and accommodation. EOMs are full. Conjunctivae pink. He does wear glasses for reading only. His dentition is good. He does not have any dentures. NECK: Supple. Trachea is midline. There is no JVD appreciated. Carotid upstroke is normal. RESPIRATORY: Ventilations are symmetric. Lung sounds are clear to auscultation. CARDIOVASCULAR: Apical rate is regular. Electrocardiogram shows normal sinus rhythm. ABDOMEN: The abdomen is soft, distended. Bowel sounds are hypoactive. He does have some right upper quadrant tenderness. EXTREMITIES: There is no deformity. Strength and tone are intact. There is no edema present. Dorsalis pedis and posterior tibial pulses are 2+ in the bilateral lower extremities. NEUROLOGIC: He is alert and oriented x3. He has a normal affect. Motor and sensory are intact. Cranial nerves 2 through 12 are intact. LABORATORY: Current lab values are as follows: Sodium 146, potassium 3.4, chloride 111, carbon dioxide 25, BUN 12, creatinine 1.1. White blood cell count 11.31, hemoglobin 15.4, hematocrit 44, platelet count 345,000, D-dimer 10.5. Troponin less than 0.01. INR 1.0. ASSESSMENT: Type B aortic dissection. PLAN: Our plan for the patient is that he will be admitted to the CV ICU. We will continue to manage his blood pressure and his pain. Mr. Traylor will be seen and evaluated by Dr. Dawson Hermosillo. We will await Dr. Hermosillo's recommendations. Currently, the patient's medical care is being managed and monitored by Caroline Astudillo DO, an continuous process rotary drum tanner in the CV ICU. She has currently ordered laboratory work, a BMP, a CBC and coags, as well as Fentanyl IV for pain management. STAFF ADDEDNUM DICTATED BY DR. DAWSON HERMOSILLO: HISTORY OF PRESENT ILLNESS: Mr. Traylor related to her was a pleasant 45-year-old gentleman who presented to [facility] today with a 1-day history of lower abdominal pain with radiation to the flanks. He began having this pain earlier this morning with associated what he describes as fluttering within his chest. He has also had symptoms of tingling in both his thighs and his lower feet. Evaluation the outside hospital demonstrated no evidence of myocardial infarction. CT scanning of the chest, abdomen, and pelvis at that time however did reveal evidence of a focal abdominal aortic dissection with associated intraneural hematoma. He is now being transferred to [facility] for further management of his abdominal aortic dissection. Presently he does complain of upper of abdominal pain with radiation to both flanks. He denies any significant chest pain and no shortness of breath. He has had no fever or chills. He has had no nausea, vomiting, hematemesis, or hematochezia. He denies any lower extremity pain. PAST MEDICAL HISTORY: Significant for gastroesophageal reflux disease, as well as obesity. He denies any past surgical history. CURRENT MEDICATIONS: Advil for pain management. ALLERGIES: He denies any known drug allergies. SOCIAL HISTORY: The patient is currently single and has 4 children. He is presently employed. He is a current smoker and has been so for the past 25 years smoking approximately 1 pack per day. He denies any alcohol or illicit drug use. FAMILY HISTORY: Significant for coronary artery occlusive disease, as well as hepatic disease. He also has a remote history of stroke. REVIEW OF SYSTEMS: A comprehensive fourteen-point review of systems was performed and is unremarkable, except as noted in the history of present illness. I have also reviewed and agreed with the findings as documented by Margoth Chan. PHYSICAL EXAMINATION: GENERAL: On examination, he appears well hydrated and is complaining of abdominal pain, but otherwise in no acute distress. He is 170 cm tall and weighs 108.8 kg. He is afebrile with a temperature of 98.9. His blood pressure is currently 136/77. His pulse is 67 and regular. He is breathing at 18 breaths per minute and is saturating 95% on 2 liters nasal cannula. The skin is warm, dry and acyanotic. HEENT: He is normocephalic and atraumatic. His pupils are equally round and reactive to light and accommodation. His extraocular movements are intact. He has no xanthelasma. His conjunctivae and lids are normal in appearance. He has his own dentition with no evidence of active oral infection. His oral mucosa and tongue are normal in appearance. NECK: His neck is supple with midline trachea. There is no palpable adenopathy or thyromegaly. There are no other masses. He has no visible jugular venous distention. He has normal palpable carotid upstrokes bilaterally with no audible bruits. LUNGS: Clear to auscultation bilaterally. He has normal respiratory excursion. CARDIOVASCULAR: His heart rate and rhythm are regular with no audible murmurs, rubs, or gallops. His PMI is nondisplaced. ABDOMEN: Obese soft and mildly distended but with audible bowel sounds throughout. He has no involuntary guarding or rebound tenderness. His extremities are warm, dry and acyanotic with no peripheral edema. He has 2+ palpable dorsalis pedis and posterior tibial pulses bilaterally. He has full range of motion with normal more tone and strength in all extremities. NEUROLOGIC: He is alert and oriented to person, place and time with a normal mood and affect. His motor and sensory function are grossly intact. His cranial nerve function is grossly intact. LABORATORY DATA AND OTHER STUDIES: Laboratory data and CT scan have been reviewed and have been documented in the medical record. SUMMARY: In summary, Mr. Traylor presents with what appears to be a focal type B aortic dissection with possible associated intraneural hematoma. There was no evidence of active extravasation. At this time, we will admit him to our CVICU for aggressive blood pressure management as well as pain control. We will also continue to evaluate him for possible stent grafting of his abdominal aortic dissection once he has been stabilized. Adiel Traylor's clinical situation was discussed at length with him and he verbalized understanding and agreed with the clinical plan. We will continue to follow him closely. Dawson Hermosillo MD Dictated By: Madeline Chan APN cc: STAFF ADDENDUM /[id number] 02/01/2011 MASTER OPERATOR documented in this encounter Consult Notes * Khurram Ware MD - 09/06/2013 1:13 AM TRIM MASTER OPERATOR REPORT Name: GIACOMO TRAYLOR Date of : 1965 Attending Physician: DAWSON HERMOSILLO Consulting Physician: Khurram Ware MD Date of Consultation: CARDIOLOGY CONSULTATION REASON FOR CONSULTATION: Blood pressure management. REQUESTING PHYSICIAN: Dawson Hermosillo MD HISTORY OF PRESENT ILLNESS: Mr. Traylor is a 45-year-old man with no previous medical history, who was admitted 01/03/2011 with severe back, abdominal and chest pain, with a descending thoracic aortic/type B intramural hematoma. He was treated in the CV ICU with an esmolol drip and a Nipride drip and was transferred to the floor yesterday. The patient is currently on metoprolol, Norvasc, hydrochlorothiazide, and receiving labetalol p.r.n. He had systolic blood pressures as high as 154 overnight with concomitant severe chest and back pain. His metoprolol was increased today to 50 mg p.o. b.i.d. He complains of 3 out of 10 chest pain and abdominal discomfort, worsened overnight with the increased blood pressure. 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 He states he was at work when the pain occurred. He states the he first felt tingling in his feet and then had severe hip, abdominal, back and chest pain. He presented to [facility] in [place] and was life flighted here for treatment. PAST MEDICAL HISTORY: GERD. SOCIAL HISTORY: He is an active tobacco smoker, smoking 1 to 1-1/2 packs per day for 25 years. He states that recently he has been down to 2 cigarettes a day. He denies alcohol or substance abuse. FAMILY HISTORY: His mother at age 58 of a myocardial infarction. His father at age 67 of liver disease. REVIEW OF SYSTEMS: Positive as above. He states he had palpitations before admission. He does note pain in his left calf with walking that resolves at rest. He has been well otherwise. Other 10+ systems reviewed are negative. ALLERGIES: NO KNOWN DRUG ALLERGIES. HE DOES HAVE AN ALLERGY TO BEE STINGS. CURRENT MEDICATIONS: He is not on any home medications. 1. Metoprolol 50 mg b.i.d. 2. Hydrochlorothiazide 12.5 mg daily. 3. Nicotine patch. 4. Amlodipine 10 mg daily. 5. Senokot. 6. Labetalol 10 mg IV q.4 h. p.r.n. systolic blood pressure greater than 120. LABS AND STUDIES: Electrocardiogram shows left axis deviation and poor R-wave progression. His D-dimer was elevated at 10.50. CT angiogram of the chest showed an intramural hematoma starting in the aortic arch with no intimal flap. B-natriuretic peptide was 29. Hemoglobin A1c 6.1, which is prediabetic range. CT abdomen of the pelvis shows a descending thoracic aortic "dissection" with intramural hematoma that ends near the renal arteries. Sodium 137, potassium 3.6, chloride 104, carbon dioxide 25, BUN 13, creatinine 0.9. INR is 1.1. White blood count 10.96, hemoglobin 13.6, platelets 156,000. PHYSICAL EXAMINATION: VITAL SIGNS: Temperature is 98.5, pulse 69, respirations 18, blood pressure currently 139/87. Systolic blood pressures have ranged from 92 to 154 in the last 24 hours. SpO2 is 93% on 4 liters. GENERAL: The patient is mildly anxious. HEENT: PERRLA, EOMI. NECK: Supple. There is no thyromegaly. JVP is not elevated. LUNGS: Clear to auscultation bilaterally with symmetrical expansion. ABDOMEN: Soft, nontender, nondistended. NEUROLOGIC: Cranial nerves are intact grossly. PULSES: There is no carotid bruit. Carotid, radial and dorsalis pedis pulses are 2+ bilaterally. Posterior tibialis pulses 2+ on the right and not appreciated on the left. HEART: Regular rate and rhythm with normal S1 and S2. There is no murmur. There is no S3. There is no S4. RV lift is absent. There is no bilateral lower extremity edema. IMPRESSION: Mr. Traylor is a 45-year-old man presenting with a type B intramural hematoma. 1. Type B intramural hematoma. 2. Systemic hypertension with poor control. 3. Obesity. 4. Witnessed sleep apnea with no previous diagnosis. 5. Left calf claudication with absent left posterior tibialis pulse. 6. Pre-diabetes. RECOMMENDATIONS: 1. We will discontinue metoprolol. 2. Continue amlodipine. 3. Start Coreg 12.5 mg p.o. b.i.d. 4. We would recommend an outpatient sleep study. 5. He has significant family history and risk factors and would recommend an outpatient stress PET. 6. Goal systolic blood pressure is less than or equal to 120 mmHg. 7. Smoking cessation is advised and was reinforced with the patient, and he expressed understanding. 8. Outpatient peripheral vascular disease workup. This patient was seen together with Dr. Ware, who agrees with the above plan. Khurram Ware MD Dictated By: Michael Moore DO cc: MASTER OPERATOR * Wilfred Petit MD - 09/06/2013 1:12 AM TRIM MASTER OPERATOR REPORT Name: GIACOMO TRAYLOR Date of : 1965 Attending Physician: DAWSON HERMOSILLO Date of Admission: 01/04/2011 Mr. Traylor is a 45-year-old male with a type B aortic dissection. He was admitted with hypertension and abdominal and back pain. CT showed a descending thoracic aortic dissection extending to the upper abdominal aorta ending abruptly near the level of the renal arteries. No significant compromise has been noted of the renal arteries. Chest x-ray and CT chest have shown no acute cardiopulmonary process. He has a history of hypertension. This has not been ideally controlled. He has metabolic syndrome and has severe truncal obesity. We have been treating his hypertension with amlodipine, carvedilol, hydrochlorothiazide, and hydralazine. He does have multiple cardiovascular risk factors including obesity, hypertension, and family history (mother of myocardial infarction at age 50). He has probable sleep apnea. This has not been diagnosed, but we have witnessed him snoring loudly and having what appear to be apneic spells. He is a smoker. We advised that he stop smoking. He has dyslipidemia, and we have added a statin. He does have evidence for peripheral arterial disease with an absent left posterior tibialis pulse. He does have some claudication. The plan is to continue his antihypertensive medications to keep systolic blood pressure under 130. He has prediabetes, and we have advised that he work on weight loss. His hemoglobin A1c is 6.1 with a fasting glucose of 105. We are planning an outpatient stress PET scan as well as an ankle arm index. He also needs an outpatient sleep study. His creatinine remains normal. Blood pressure is currently running 120/62. Pulse is 69. Respiratory rate is 20. He complains of vague abdominal and back pain. CURRENT MEDICATIONS: 1. Amlodipine 10 mg daily. 2. Hydrochlorothiazide 12.5 mg daily. 3. Carvedilol 25 mg b.i.d. 4. Hydralazine IV p.r.n. hypertension. OUTPATIENT PLANS: 1. Sleep study. 2. Stress PET scan. 3. Monitor electrolytes and blood pressure. 4. Office visit with us in approximately 1 month. We will also perform an ankle arm index. 5. He is a smoker, and we advised him to stop smoking. He has not had any cigarettes for the past 10 days. Wilfred Rollins Jr, MD Dictated By: cc: MASTER OPERATOR documented in this encounter Plan of Treatment Not on filedocumented as of this encounter Procedures Comments Procedure Name Priority Date/Time Associated Diag nosis URINE NITRITE Routine 01/11/2011 2:32 PM CDT URINALYSIS (INCLUDES Routine 01/11/2011 MICROSCOPIC REVIEW, IF 2:32 PM CDT INDICATED) CULTURE, URINE Routine 01/11/2011 2:32 PM CDT US RETROPERITONEAL ORGANS Routine 01/11/2011 COMPLETE 12:49 PM CDT US ANKLE BRACHIAL INDEX Routine 01/10/2011 BILAT 8:46 AM CDT LIPID PANEL Routine 01/10/2011 3:[address] ANGIO ABDOMEN Routine 01/08/2011 10:[address] CHEST W WO CONTRAST Routine 01/08/2011 10:[address] ANGIO PELVIS Routine 01/08/2011 10:55 AM CDT LIPID PANEL Routine 01/07/2011 3:57 AM CDT BASIC METABOLIC PANEL Routine 01/07/2011 3:57 AM CDT COMPLETE BLOOD COUNT Routine 01/06/2011 3:59 AM CDT BASIC METABOLIC PANEL Routine 01/06/2011 3:59 AM CDT PHOSPHORUS Routine 01/05/2011 2:31 AM CDT MAGNESIUM Routine 01/05/2011 2:31 AM CDT COMPLETE BLOOD COUNT Routine 01/05/2011 2:31 AM CDT BASIC METABOLIC PANEL Routine 01/05/2011 2:31 AM CDT RETYPE PATIENT ABORH Routine 01/04/2011 10:18 PM CDT URINE NITRITE Routine 01/04/2011 3:32 PM CDT URINALYSIS (INCLUDES Routine 01/04/2011 MICROSCOPIC REVIEW, IF 3:32 PM CDT INDICATED) RBCS 2 UNITS Routine 01/04/2011 1:01 PM CDT ANTIBODY SCREEN Routine 01/04/2011 1:01 PM CDT COAGULATION SCREEN Routine 01/04/2011 1:01 PM CDT BASIC METABOLIC PANEL Routine 01/04/2011 1:01 PM CDT ABORH TYPE Routine 01/04/2011 1:01 PM CDT HEMOGLOBIN A1C Routine 01/04/2011 12:45 PM CDT CBC AND DIFF (MANUAL DIFF Routine 01/04/2011 IF NECESSARY) 12:45 PM CDT documented in this encounter Results * Culture, Urine (01/11/2011 2:32 PM CDT) Specimen Urine Narrative Performed At [facility] Specimen/Source: URINE/CLEAN VOIDED UR Collected: 01/11/2011 14:32 Status: Final Last Updated: 01/2011 23:09 Culture result (Final) No growth Performing Organization Address City/State/Zipcode Ph one Number [facility] [address] [place], [place] [address] [place] * Urine Nitrite (01/11/2011 2:32 PM CDT) Only the most recent of 2 results within the time period is included. Nitrite Urine Negative Negative [facility] Specimen Urine Performing Organization Address [facility] one Number RL [address] [place], [place] [address] [facility] * Urinalysis (01/11/2011 2:32 PM CDT) Only the most recent of 2 results within the time period is included. Appearance, Yellow [facility] Urine Specific >=1.030 1.001 - 1.030 [facility] [place], UA PH Urine 5.5 5.0 - 8.0 [facility] Hemoglobin Negative Negative [facility] Urine Leukocyte Negative Negative [facility] Esterase Bilirubin Urine Negative Negative [facility] Glucose Urine Negative Negative MG/DL [facility] Ketones Urine Negative Negative MG/DL [facility] Protein Urine Negative Negative MG/DL [facility] Qual Urobilinogen Negative Negative EU/DL [facility] Urine Specimen Urine Performing Organization Address [facility] one Number [facility] [address] [place] [phone] [place] * US Retroperitoneal organs complete (01/11/2011 12:49 PM CDT) Specimen Narrative Performed At [facility] Patient: GIACOMO TRAYLOR Phone #: Med Rec#: [id number] Sex: M : 1965 Javed#: [id number] Location: [place] [address] Check-in#: [id number] Procedure Requested: US RETROPERI TONEAL ORGANS COMPLET Reason For Exam: PAIN Exam Ordered: 01/11/2011 101 8 Exam Date/Time: 01/11/2011 1324 Check-in Date/Time: 01/11/2011 1032 Attendin CASPER HERMOSILLO V "" Requestin DAWSON HERMOSILLO "" Referrin NO, REFERRING DR Primary Care: UNABLE, TO ASK Indication: Right and mid abdominal chiquis n, history of aortic dissection. Exam: Retroperitoneal ultrasound. Exam is correlated with the CT study of 01/08/2011. Findings: Both kidneys are negative for shadowing stone or hydronephrosis. The right kidney measur es 11.9 x 3.2 x 7.4 cm, the left 10.7 x 4.6 x 7.3 cm. There are 2 cysts in the left kidney, the larger measuring 2.2 cm in maximum dimension. Neither ureter is visualized. The bladd er is normal in appearance. The abdominal aorta and IVC are obscure d by overlying bowel gas. Impression: 1. Two small cysts in the left kidney, otherwise normal renal ultrasound. 2. The abdominal aorta and IVC are obsc ured by overlying bowel gas. Signed (Authenticated, Released) Date-T natasha: 01/11/2011 1334 Wire Coater- ANA ANTOINE M.D. , Staff Radiologist Dictated By- ANA ANTOINE M.D., Sta ff Radiologist Staff Physician- ANA ANTOINE M.D., Staff Radiologist Authenticated By- ANA ANTOINE M.D. 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 Exam: Retroperitoneal ultrasound. Exam is correlated with the CT study of 01/08/2011. Findings: Both kidneys are negative for shadowing stone or hydronephrosis. The right kidney measures 11.9 x 3.2 x 7.4 cm, the left 10.7 x 4.6 x 7.3 cm. There are 2 cysts i n the left kidney, the larger measuring 2.2 cm in maximum dimension. Neither ureter is visualized. The bladder is normal in appearance. The abdominal aorta and IVC are obscured by overlying bowel gas. Impression: 1. Two small cysts in the left kidney, o therwise normal renal ultrasound. 2. The abdominal aorta and IVC are obscu red by overlying bowel gas. Signed (Authenticated, Released) Date-Time: 01/11/2011 1334 Wire Coater- ANA ANTOINE M.D., Staff Radiologist Dictated By- ANA ANTOINE M.D., Staff Radiologist Staff Physician- ANA ANTOINE M.D., Staff Radiologist Authenticated By- ANA ANTOINE M.D., Staff Radiologist Performing Organization Address City/State/Zipcode Ph one Number [facility] * US Ankle Arm index bilat (01/10/2011 8:46 AM CDT) Specimen Narrative Performed At [facility] Patient: GIACOMO TRAYLOR Phone #: Med Rec#: [id number] Sex: M : 1965 Javed#: [id number] Location: [place] [address] Check-in#: [id number] Procedure Requested: US ANKLE ARM INDEX BILAT Reason For Exam: re-pvd Exam Ordered: 01/09/2011 121 3 Exam Date/Time: 01/10/2011 0915 Check-in Date/Time: 01/10/2011 0421 Attendin CASPER HERMOSILLO V "" Requestin WILFRED PETIT JR Referrin NO, REFERRING DR Primary Care: UNABLE, TO ASK US ANKLE ARM INDEX REST STRESS BI Indication: PVD Exam Date: Jan 10, 2011 09:15:00 AM Findings/impression: A left upper extremity blood pressure c ould not be obtained. Normal triphasic waveforms are present in both brachial arteries. Normal triphasic waveforms are present in the right posterior tibial and dorsalis pedis arteries. ABIs in the right posterior tibial is 1.0, in the dorsalis pedis 0.87. Monophasic waveforms are present within the left posterior tibial and dorsalis pedis arteries. ABIs are 0.73 in the left posterior tibial and 0.70 in the dorsalis pedis. Signed (Authenticated, Released) Date-T natasha: 01/10/2011 0957 Wire Coater- ANA ANTOINE M.D. , Staff Radiologist Dictated By- ANA ANTOINE M.D., Sta ff Radiologist Staff Physician- ANA ANTOINE M.D., Staff Radiologist Authenticated By- ANA ANTOINE M.D. , Staff Radiologist Procedure Note Interface, Rad Conversion - 09/06/2013 1:49 PM TRIM MASTER OPERATOR REPORT Patient: GIACOMO TRAYLOR Phone #: Med Rec#: [id number] Sex: M : 1965 Javed#: [id number] Location: [place] [address] Check-in#: [id number] Procedure Requested: US ANKLE ARM INDEX BILAT Reason For Exam: re-pvd Exam Ordered: 01/09/2011 1213 Exam Date/Time: 01/10/2011 0915 Check-in Date/Time: 01/10/2011 0421 Attendin DAWSON HERMOSILLO "" Requestin WILFRED PETIT JR Referrin NO, REFERRING DR Primary Care: UNABLE, TO ASK US ANKLE ARM INDEX REST STRESS BI Indication: PVD Exam Date: Jan 10, 2011 09:15:00 AM Findings/impression: A left upper extremity blood pressure could not be obtained. Normal triphasic waveforms are present in both brachial arteries. Normal triphasic waveforms are present in the right posterior tibial and dorsalis pedis arteries. ABIs in the right posterior tibial is 1.0, in the dorsalis pedis 0.87. Monophasic waveforms are present within the left posterior tibial and dorsalis pedis arteries. ABIs are 0.73 in the left posterior tibial and 0.70 in the dorsalis pedis. Signed (Authenticated, Released) Date-Time: 01/10/2011 0957 Wire Coater- ANA ANTOINE M.D., Staff Radiologist Dictated By- ANA ANTOINE M.D., Staff Radiologist Staff Physician- ANA ANTOINE M.D., Staff Radiologist Authenticated By- ANA ANTOINE M.D., Staff Radiologist Performing Organization Address City/[facility] Ph one Number [facility] * Lipid Panel (01/10/2011 3:58 AM CDT) Only the most recent of 2 results within the time period is included. Cholesterol 126 100 - 200 MG/DL [facility] Triglycerides 244 (H) 0 - 150 MG/DL [facility] HDL Cholesterol 13 (L) 40 - 110 MG/DL [facility] LDL Cholesterol 64 0 - 99 MG/DL [facility] Cholesterol/HDL 9.7 (H) 0.0 - 4.5 [facility] Ratio Hours 8 [facility] Postprandial Non-HDL 113 0 - 130 MG/DL [facility] Cholesterol Specimen Blood Performing Organization Address [facility] one Number [facility] [address] [place], [place] [address] [place] * CT Angio Abdomen (01/08/2011 10:56 AM CDT) Specimen Narrative Performed At [facility] Patient: GIACOMO TRAYLOR Phone #: Med Rec#: [id number] Sex: M : 1965 Javed#: [id number] Location: [facility] [id number] Check-in#: [id number] Procedure Requested: [id number] CT ANGIO ABD OMEN Reason For Exam: known disection Exam Ordered: 01/08/2011 083 8 Exam Date/Time: 01/08/2011 1106 Check-in Date/Time: 01/08/2011 1104 Attendin CASPER HERMOSILLO V "" Requestin DAWSON HERMOSILLO "" Referrin NO, REFERRING DR Primary Care: UNABLE, TO ASK Examination: CT ABD PELVIS WITH CONTRAS T Comparison: 01/04/2011 History: Dissection . Pain Technique: 90 mL Omnipaque 350 intraven eously. Following administration of intravenous contrast contiguous axial 5 mm images were obtained through the abdome n and pelvis. Reformatted images were obtained in coronal and sagittal p lanes. Findings: Please note that the chest portion exam ination be dictated under separate accession number. The abdominal aorta is normal in calibe r to its bifurcation. Some calcific atherosclerosis and perip heral thrombus is seen within the aorta. No evidence of aneurysm or disse ction. The iliac vessels are also normal in ca liber without evidence of aneurysm. The celiac axis, SMA and renal arteries are also patent. Two right renal arteries incidentally noted. Main portal vein is also patent. Evaluation of solid intra-abdominal org ans slightly limited due to early arterial phase of enhancement. There is diffuse fatty infiltration of the liver. Small left renal cyst The liver, spleen, pancreas, gallbladde r, bilateral adrenal glands and kidneys are otherwise unremarkable. No retroperitoneal mass or lymphadenopa thy. No ascites fluid collections Visualized portion of the urinary bladd er is normally distended without focal abnormality. The visualized segments of bowel are un remarkable without evidence of obstruction or acute inflammatory gomez es. No suspicious osseous lesions. Impression: No aneurysm or dissection of the abdomi nal aortal No acute CT abnormality within the abdo men or pelvis. Diffuse fatty infiltration of the liver Signed (Authenticated, Released) Date-T natasha: 01/08/2011 1212 Wire Coater- HIMANSHU Sequeira, Staff Radiologist Dictated By- HIMANSHU VALDEZ M.D., Staff Radiologist Staff Physician- HIMANSHU Muller, Staff Radiologist Authenticated By- HIMANSHU Sequeira, Staff Radiologist Procedure Note Interface, Rad Conversion - 09/06/2013 1:50 PM TRIM MASTER OPERATOR REPORT Patient: GIACOMO TRAYLOR Phone #: KiteBit Rec#: [id number] Sex: M : 1965 Javed#: [id number] Location: [place] [address] Check-in#: [id number] Procedure Requested: [id number] CT ANGIO ABDOMEN Reason For Exam: known disection Exam Ordered: 01/08/2011 0838 Exam Date/Time: 01/08/2011 110 Check-in Date/Time: 01/08/2011 110 Attendin DAWSON HERMOSILLO "" Requestin DAWSON HERMOSILLO "" Referrin NO, REFERRING DR Primary Care: UNABLE, TO ASK Examination: CT ABD PELVIS WITH CONTRAST Comparison: 01/04/2011 History: Dissection . Pain Technique: 90 mL Omnipaque 350 intraveneously. Following administration of intravenous contrast contiguous axial 5 mm images were obtained through the abdomen and pelvis. Reformatted images were obtained in coronal and sagittal planes. Findings: Please note that the chest portion examination be dictated under separate accession number. The abdominal aorta is normal in caliber to its bifurcation. Some calcific atherosclerosis and peripheral thrombus is seen within the aorta. No evidence of aneurysm or dissection. The iliac vessels are also normal in caliber without evidence of aneurysm. The celiac axis, SMA and renal arteries are also patent. Two right renal arteries incidentally noted. Main portal vein is also patent. Evaluation of solid intra-abdominal organs slightly limited due to early arterial phase of enhancement. There is diffuse fatty infiltration of the liver. Small left renal cyst The liver, spleen, pancreas, gallbladder, bilateral adrenal glands and kidneys are otherwise unremarkable. No retroperitoneal mass or lymphadenopathy. No ascites fluid collections Visualized portion of the urinary bladder is normally distended without focal abnormality. The visualized segments of bowel are unremarkable without evidence of obstruction or acute inflammatory changes. No suspicious osseous lesions. Impression: No aneurysm or dissection of the abdominal aortal No acute CT abnormality within the abdomen or pelvis. Diffuse fatty infiltration of the liver Signed (Authenticated, Released) Date-Time: 01/08/2011 1212 Wire Coater- HIMANSHU VALDEZ M.D., Staff Radiologist Dictated By- HIMANSHU VALDEZ M.D., Staff Radiologist Staff Physician- HIMANSHU VALDEZ M.D., Staff Radiologist Authenticated By- HIMANSHU VALDEZ M.D., Staff Radiologist Performing Organization Address City/State/Zipcode Ph one Number [facility] * CT Angio Pelvis (01/08/2011 10:55 AM CDT) Specimen Narrative Performed At [facility] Patient: GIACOMO TRAYLOR Phone #: Med Rec#: [id number] Sex: M : 1965 Javed#: [id number] Location: [place] [address] Check-in#: [id number] Procedure Requested: [id number] CT ANGIO PEL VIS Reason For Exam: ABDOMINAL PAIN Exam Ordered: 01/08/2011 083 8 Exam Date/Time: 01/08/2011 1105 Check-in Date/Time: 01/08/2011 1104 Attendin CASPER HERMOSILLO V "" Requestin DAWSON HERMOSILLO "" Referrin NO, REFERRING DR Primary Care: UNABLE, TO ASK CT ANGIO PELVIS INDICATION: ABDOMINAL PAIN. COMPARISON STUDY: 01/04/2011. TECHNIQUE: Unenhanced axial images we re obtained through the thoracic aorta. Following the uneventful adminis tration of a bolus of intravenous contrast ( 90 mL Omnipaque ), thin sect ion axial CT images were obtained through the chest using the CT aorta pr otocol. Bilateral oblique thin section multiplanar reconstructions wer e obtained through the aorta. Coronal MIP images were also obtained. FINDINGS: Unenhanced aorta: Thin linear concentri c high attenuation surrounding the mid to distal thoracic aorta likely represents adjacent atelectasis. . Enhanced aorta: Stable size of the thor acic aorta with aortic dissection which is more clearly identified on the current examination beginning at the proximal descending aorta extending to the nguyen of the diaphragm stable appearance of intramural hematom a. Heart and Mediastinum: The heart and pe ricardium are normal. The pulmonary arteries are unremarkable. Th e visualized portions of the thyroid gland are of normal size and at tenuation. Large right axillary lymph node again noted.. No mediastinal , hilar or retrocrural lymphadenopathy. Lungs and Airways: Development of bibas ilar subsegmental atelectasis. No endoluminal lesion. Pleura: Small bilateral pleural effusio ns. Abdomen: Please see separate report for findings in the abdomen. Bones and soft tissues: The skeletal st ructures and soft tissues of the chest wall are within normal limits. INCIDENTAL FINDINGS: Development of sma ll bilateral pleural effusions and bibasilar subsegmental atelectasis IMPRESSIONS: Dissection of the thoracic aorta apparent originating at the proximal descending aorta, more arthur jeremy visualized on the current study but otherwise not significantly c hanged. Right axillary lymphadenopathy Signed (Authenticated, Released) Date-T natasha: 01/08/2011 1202 Wire Coater- HIMANSHU Sequeira, Staff Radiologist Dictated By- HIMANSHU VALDEZ M.D., Staff Radiologist Staff Physician- HIMANSHU Muller, Staff Radiologist Authenticated By- HIMANSHU Sequeira, Staff Radiologist ADDENDUM-- Dictation for the chest was inadvertent ly dictated under the accession number of CT of the pelvis. The correct report is as follows: Examination: CT ABD PELVIS WITH CONTRAS T Comparison: 01/04/2011 History: Dissection . Pain Technique: 90 mL Omnipaque 350 intraven eously. Following administration of intravenous contrast contiguous axial 5 mm images were obtained through the abdome n and pelvis. Reformatted images were obtained in coronal and sagittal p lanes. Findings: Please note that the chest portion exam ination be dictated under separate accession number. Abdomen: The abdominal aorta is normal in calibe r to its bifurcation. Some calcific atherosclerosis and perip heral thrombus is seen within the aorta. No evidence of aneurysm or disse ction. The iliac vessels are also normal in ca liber without evidence of aneurysm. The celiac axis, SMA and renal arteries are also patent. Two right renal arteries incidentally noted. Main portal vein is also patent. Evaluation of solid intra-abdominal org ans slightly limited due to early arterial phase of enhancement. There is diffuse fatty infiltration of the liver. Small left renal cyst The liver, spleen, pancreas, gallbladde r, bilateral adrenal glands and kidneys are otherwise unremarkable. No retroperitoneal mass or lymphadenopa thy. No ascites fluid collections Pelvis: Urinary bladder is low-volume without f ocal abnormality No suspicious pelvic mass or lymphadeno talon. Visualized segments of bowel are unremarkable without evidence of stretching or acute inflammatory changes No suspicious osseous lesions. Impression: No aneurysm or dissection of the abdomi nal aorta No acute CT abnormality within the abdo men or pelvis. Diffuse fatty infiltration of the liver Signed (Authenticated, Released) Date-T natasha: 01/08/2011 1225 Addendum Wire Coater- HIMANSHU BAIRES M.D., Staff Radiologist Addendum Dictated By- HIMANSHU VALDEZ M.D., Staff Radiologist Addendum Staff Physician- HIMANSHU FARNSWORTH M.D., Staff Radiologist Addendum Authenticated By- HIMANSHU BAIRES M.D., Staff Radiologist Procedure Note Interface, Rad Conversion - 09/06/2013 1:50 PM TRIM MASTER OPERATOR REPORT Patient: GIACOMO TRAYLOR Phone #: Med Rec#: [id number] Sex: M : 1965 Javed#: [id number] Location: [place] [address] [id number] Check-in#: [id number] Procedure Requested: [id number] CT ANGIO PELVIS Reason For Exam: ABDOMINAL PAIN Exam Ordered: 01/08/2011 0838 Exam Date/Time: 01/08/2011 1105 Check-in Date/Time: 01/08/2011 1104 Attendin DAWSON HERMOSILLO "" Requestin DAWSON HERMOSILLO "" Referrin NO, REFERRING DR Primary Care: UNABLE, TO ASK CT ANGIO PELVIS INDICATION: ABDOMINAL PAIN. COMPARISON STUDY: 01/04/2011. TECHNIQUE: Unenhanced axial images were obtained through the thoracic aorta. Following the uneventful administration of a bolus of intravenous contrast ( 90 mL Omnipaque ), thin section axial CT images were obtained through the chest using the CT aorta protocol. Bilateral oblique thin section multiplanar reconstructions were obtained through the aorta. Coronal MIP images were also obtained. FINDINGS: Unenhanced aorta: Thin linear concentric high attenuation surrounding the mid to distal thoracic aorta likely represents adjacent atelectasis. . Enhanced aorta: Stable size of the thoracic aorta with aortic dissection which is more clearly identified on the current examination beginning at the proximal descending aorta extending to the nguyen of the diaphragm stable appearance of intramural hematoma. Heart and Mediastinum: The heart and pericardium are normal. The pulmonary arteries are unremarkable. The visualized portions of the thyroid gland are of normal size and attenuation. Large right axillary lymph node again noted.. No mediastinal, hilar or retrocrural lymphadenopathy. Lungs and Airways: Development of bibasilar subsegmental atelectasis. No endoluminal lesion. Pleura: Small bilateral pleural effusions. Abdomen: Please see separate report for findings in the abdomen. Bones and soft tissues: The skeletal structures and soft tissues of the chest wall are within normal limits. INCIDENTAL FINDINGS: Development of small bilateral pleural effusions and bibasilar subsegmental atelectasis IMPRESSIONS: Dissection of the thoracic aorta apparent originating at the proximal descending aorta, more clearly visualized on the current study but otherwise not significantly changed. Right axillary lymphadenopathy Signed (Authenticated, Released) Date-Time: 01/08/2011 1202 Wire Coater- HIMANSHU VALDEZ M.D., Staff Radiologist Dictated By- HIMANSHU VALDEZ M.D., Staff Radiologist Staff Physician- HIMANSHU VALDEZ M.D., Staff Radiologist Authenticated By- HIMANSHU VALDEZ M.D., Staff Radiologist ADDENDUM--- Dictation for the chest was inadvertently dictated under the accession number of CT of the pelvis. The correct report is as follows: Examination: CT ABD PELVIS WITH CONTRAST Comparison: 01/04/2011 History: Dissection . Pain Technique: 90 mL Omnipaque 350 intraveneously. Following administration of intravenous contrast contiguous axial 5 mm images were obtained through the abdomen and pelvis. Reformatted images were obtained in coronal and sagittal planes. Findings: Please note that the chest portion examination be dictated under separate accession number. Abdomen: The abdominal aorta is normal in caliber to its bifurcation. Some calcific atherosclerosis and peripheral thrombus is seen within the aorta. No evidence of aneurysm or dissection. The iliac vessels are also normal in caliber without evidence of aneurysm. The celiac axis, SMA and renal arteries are also patent. Two right renal arteries incidentally noted. Main portal vein is also patent. Evaluation of solid intra-abdominal organs slightly limited due to early arterial phase of enhancement. There is diffuse fatty infiltration of the liver. Small left renal cyst The liver, spleen, pancreas, gallbladder, bilateral adrenal glands and kidneys are otherwise unremarkable. No retroperitoneal mass or lymphadenopathy. No ascites fluid collections Pelvis: Urinary bladder is low-volume without focal abnormality No suspicious pelvic mass or lymphadenopathy. Visualized segments of bowel are unremarkable without evidence of stretching or acute inflammatory changes No suspicious osseous lesions. Impression: No aneurysm or dissection of the abdominal aorta No acute CT abnormality within the abdomen or pelvis. Diffuse fatty infiltration of the liver Signed (Authenticated, Released) Date-Time: 01/08/2011 1225 Addendum Wire Coater- HIMANSHU VALDEZ M.D., Staff Radiologist Addendum Dictated By- HIMANSHU VALDEZ M.D., Staff Radiologist Addendum Staff Physician- HIMANSHU VALDEZ M.D., Staff Radiologist Addendum Authenticated By- HIMANSHU VALDEZ M.D., Staff Radiologist Performing Organization Address City/State/Zipcode Ph one Number [facility] * CT Chest w wo contrast (01/08/2011 10:55 AM CDT) Specimen Narrative Performed At [facility] Patient: GIACOMO TRAYLOR Phone #: Med Rec#: [id number] Sex: M : 1965 Javed#: [id number] Location: [place] [address] Check-in#: [id number] Procedure Requested: [id number] CT CHEST W W O CONTRAST Reason For Exam: KNOWN ANEURYSM Exam Ordered: 01/08/2011 083 8 Exam Date/Time: 01/08/2011 1105 Check-in Date/Time: 01/08/2011 1104 Attendin CASPER HERMOSILLO V "" Requestin DAWSON HERMOSILLO "" Referrin NO, REFERRING DR Primary Care: UNABLE, TO ASK CT CHEST W WO CONTRAST Comparison: 01/04/2011 History: Dissection . Pain Technique: Unenhanced axial images were obtained through the thoracic aorta. Following the uneventful adminis tration of a bolus of intravenous contrast ( 90 mL Omnipaque ), thin sect ion axial CT images were obtained through the chest using the CT aorta pr otocol. Bilateral oblique thin section multiplanar reconstructions wer e obtained through the aorta. Coronal MIP images were also obtained. FINDINGS: Unenhanced aorta: Thin linear concentri c high attenuation surrounding the mid to distal thoracic aorta likely represents adjacent atelectasis. . Enhanced aorta: Stable size of the thor acic aorta with aortic dissection which is more clearly identified on the current examination beginning at the proximal descending aorta extending to the nguyen of the diaphragm stable appearance of intramural hematom a. Heart and Mediastinum: The heart and pe ricardium are normal. The pulmonary arteries are unremarkable. Th e visualized portions of the thyroid gland are of normal size and at tenuation. Large right axillary lymph node again noted.. No mediastinal , hilar or retrocrural lymphadenopathy. Lungs and Airways: Development of bibas ilar subsegmental atelectasis. No endoluminal lesion. Pleura: Small bilateral pleural effusio ns. Abdomen: Please see separate report for findings in the abdomen. Bones and soft tissues: The skeletal st ructures and soft tissues of the chest wall are within normal limits. INCIDENTAL FINDINGS: Development of sma ll bilateral pleural effusions and bibasilar subsegmental atelectasis IMPRESSIONS: Dissection of the thoracic aorta appare nt originating at the proximal descending aorta, more clearly visualiz ed on the current study but otherwise not significantly changed. 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 Pain Technique: Unenhanced axial images were obtained through the thoracic aorta. Following the uneventful administration of a bolus of intravenous contrast ( 90 mL Omnipaque ), thin section axial CT images were obtained through the chest using the CT aorta protocol. Bilateral oblique thin section multiplanar reconstructions were obtained through the aorta. Coronal MIP images were also obtained. FINDINGS: Unenhanced aorta: Thin linear concentric high attenuation surrounding the mid to distal thoracic aorta likely represents adjacent atelectasis. . Enhanced aorta: Stable size of the thoracic aorta with aortic dissection which is more clearly identified on the current examination beginning at the proximal descending aorta extending to the nguyen of the diaphragm stable appearance of intramural hematoma. Heart and Mediastinum: The heart and pericardium are normal. The pulmonary arteries are unremarkable. The visualized portions of the thyroid gland are of normal size and attenuation. Large right axillary lymph node again noted.. No mediastinal, hilar or retrocrural lymphadenopathy. Lungs and Airways: Development of bibasilar subsegmental atelectasis. No endoluminal lesion. Pleura: Small bilateral pleural effusions. Abdomen: Please see separate report for findings in the abdomen. Bones and soft tissues: The skeletal structures and soft tissues of the chest wall are within normal limits. INCIDENTAL FINDINGS: Development of small bilateral pleural effusions and bibasilar subsegmental atelectasis IMPRESSIONS: Dissection of the thoracic aorta apparent originating at the proximal descending aorta, more clearly visualized on the current study but otherwise not significantly changed. Right axillary lymphadenopathy Signed (Authenticated, Released) Date-Time: 01/12/2011 0948 Wire Coater- HIMANSHU VALDEZ M.D., Staff Radiologist Dictated By- HIMANSHU VALDEZ M.D., Staff Radiologist Staff Physician- HIMANSHU VALDEZ M.D., Staff Radiologist Authenticated By- HIMANSHU VALDEZ M.D., Staff Radiologist Performing Organization Address [facility] one Number GAYE * Basic Metabolic Panel (01/07/2011 3:57 AM CDT) Only the most recent of 4 results within the time period is included. Sodium 135 134 - 144 MEQ/L SUNQUEST Potassium 4.1 3.5 - 5.1 MEQ/L SUNQUEST Chloride 102 101 - 111 MEQ/L SUNQUEST Carbon Dioxide 26 23 - 32 MEQ/L SUNQUEST Anion Gap 7 3 - 15 SUNQUEST Creatinine 1.0 0.6 - 1.3 MG/DL SUNQUEST Blood Urea 18 8 - 26 MG/DL SUNQUEST Nitrogen Glucose 105 (H) 65 - 100 MG/DL SUNQUEST Calcium 8.5 (L) 8.8 - 10.5 MG/DL SUNQUEST eGFR Male 81 SUNQUEST Non-AA Comment: Chronic Kidney Disease less than 60 mL/min/1.73 sq.m Kidney failure less than 15 mL/min/1.73 sq.m eGFR Male AA 98 SUNQUEST Comment: Chronic Kidney Disease less than 60 mL/min/1.73 sq.m Kidney failure less than 15 mL/min/1.73 sq.m Specimen Blood Performing Organization Address [facility] one Number [address] [place], [place] [address] SUNQUEST * Complete Blood Count (01/06/2011 3:59 AM CDT) Only the most recent of 2 results within the time period is included. WBC 10.96 4.00 - 11.00 TH/UL SUNQUEST RBC 4.55 4.31 - 5.84 MIL/UL SUNQUEST Hemoglobin 13.6 13.0 - 17.0 G/DL SUNQUEST Hematocrit 38 (L) 40 - 50 % SUNQUEST MCV 84 80 - 99 FL SUNQUEST MCH 30 27 - 34 PG SUNQUEST MCHC 35 32 - 36 % SUNQUEST RDW 13.5 9.0 - 14.5 % SUNQUEST Platelet Count 156 140 - 400 TH/UL SUNQUEST MPV 9.8 9.4 - 12.3 FL SUNQUEST Specimen Blood Performing Organization Address [facility]/Zipcode Ph one Number [address] [place], [place] [address] SUNQUEST * Magnesium (01/05/2011 2:31 AM CDT) Pathologist [facility] Magnesium 1.8 1.4 - 2.0 MEQ/L SUNQUEST Specimen Blood Performing Organization Address [facility] Ph one Number [address] [place], [place] [address] SUNQUEST * Phosphorus (01/05/2011 2:31 AM CDT) Pathologist [facility] Phosphorus 3.6 2.5 - 4.5 MG/DL SUNQUEST Specimen Blood Performing Organization Address [facility] Ph one Number [address] [place] [phone] SUNQUEST * Retype Patient ABORH (01/04/2011 10:18 PM CDT) Pathologist [facility] ABORH Type O Positive SUNQUEST Confirm Blood Yes SUNQUEST Type Specimen Blood Performing Organization Address [facility] one Number [address] [place] [phone] SUNQUEST * Coagulation Screen (01/04/2011 1:01 PM CDT) Pathologist [facility] Protime 13.7 11.7 - 14.3 SEC SUNQUEST INR 1.1 0.9 - 1.1 SUNQUEST APTT 30 22 - 34 SEC SUNQUEST Fibrinogen 279 146 - 390 MG/DL SUNQUEST Assay Specimen Blood Performing Organization Address [facility] Ph one Number [address] [place] [address] SUNQUEST * Antibody Screen (01/04/2011 1:01 PM CDT) Pathologist [facility] Antibody Screen Negative SUNQUEST Specimen Blood Performing Organization Address [facility] one Number [address] [place], [place] [address] SUNQUEST * ABORH Type (01/04/2011 1:01 PM CDT) Pathologist [facility] ABORH Type O Positive SUNQUEST Specimen Blood Performing Organization Address [facility] Ph one Number [address] [place] [address] SUNQUEST * RBCs 2 Units (01/04/2011 1:01 PM CDT) 01 - PRODUCT ID Red Blood Cells SUNQUEST 01 - UNIT [id number] SUNQUEST NUMBER 01 - CROSS Compatible SUNQUEST MATCH 01 - STATUS Canceled SUNQUEST INFO 01 - PRODUCT [id number] SUNQUEST CODE 01 - BLOOD TYPE O Pos SUNQUEST 02 - PRODUCT ID Red Blood Cells SUNQUEST 02 - UNIT [id number] SUNQUEST NUMBER 02 - CROSS Compatible SUNQUEST MATCH 02 - STATUS Canceled SUNQUEST INFO 02 - PRODUCT [id number] SUNQUEST CODE 02 - BLOOD TYPE O Pos SUNQUEST Specimen Blood Performing Organization Address [facility] one Number [address] [place] [phone] SUNQUEST * CBC and Diff (manual diff if necessary) (01/04/2011 12:45 PM CDT) Pathologist [facility] WBC 14.52 (H) 4.00 - 11.00 TH/UL SUNQUEST RBC 5.19 4.31 - 5.84 MIL/UL SUNQUEST Hemoglobin 15.1 13.0 - 17.0 G/DL SUNQUEST Hematocrit 44 40 - 50 % SUNQUEST MCV 84 80 - 99 FL SUNQUEST MCH 29 27 - 34 PG SUNQUEST MCHC 35 32 - 36 % SUNQUEST RDW 13.5 9.0 - 14.5 % SUNQUEST Platelet Count 263 140 - 400 TH/UL SUNQUEST MPV 10.1 9.4 - 12.3 FL SUNQUEST % Neutrophils 83 (H) 45 - 78 % SUNQUEST %Lymphocytes 12 (L) 15 - 47 % SUNQUEST %Monocytes 4 0 - 12 % SUNQUEST %Eosinophils 1 0 - 7 % SUNQUEST # Basophils 0.05 0.00 - 0.10 TH/UL SUNQUEST # Eosinophils 0.09 0.00 - 0.40 TH/UL SUNQUEST %Basophils 0 0 - 2 % SUNQUEST # Monocytes 0.57 0.20 - 0.90 TH/UL SUNQUEST # Lymphocytes 1.72 1.00 - 3.30 TH/UL SUNQUEST # Granulocytes 12.09 (H) 1.70 - 6.80 TH/UL SUNQUEST Specimen Blood Performing Organization Address [facility] one Number [address] [place] [address] SUNQUEST * Hemoglobin A1C (01/04/2011 12:45 PM CDT) HEMOGLOBIN A1C 6.1 (H) 4.0 - 6.0 % SUNQUEST Comment: Non-diabetic: 4.0 - 6.0 % Very Good Control: < 7.0 % Suboptimal Control: 7.1 - 8.0 % Poor Control: >8.0 % Specimen Blood Performing Organization Address City/State/Zipcode Ph one Number [address] [place], [place] [address] SUNQUEST documented in this encounter Visit Diagnoses Diagnosis Dissection of aorta, thoracic (HCC) Dissection of aorta, thoracic documented in this encounter
--- OUTSIDE RECORDS SUMMARY | 2019-08-27 21:03 | XMS REPORT | Encounter Summary ---
Author Author [facility] Organization [facility] Address Unknown Phone Unavailable Care Team Providers Care Public Housing Interviewer Name Role Phone Leanne Xiong PCP Unavailable Encounter Details Care Team Description Date Type Department 01/06/2011 [facility] [...]
--- OUTSIDE RECORDS SUMMARY | 2019-08-27 21:04 | XMS REPORT ---
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 Name Role Phone ALMA ABUNDIO Unavailable PROBLEMS Type Condition ICD9-CM Code [id number] Code Onset Dates Condition S tatus SNOMED Code Problem Vitamin D deficiency E55.9 Active 52790501 Problem Seasonal allergic rhinitis due to pollen J30.1 Active 44738187 Problem CAD (coronary artery disease) I25.10 Active 43662775 Problem Hypertension I10 Active 8808615 3 Problem Neuropathy G62.9 Active 410700907 Problem Type 2 diabetes mellitus wit h other specified complication, without long-term current use of insulin E11.69 Active 18400143 Problem Dyslipidemia (high LDL; low HDL) E78.5 Active 632862941 Problem Lumbosacral radiculopathy due to osteoarthritis of spine M47.27 Active 4614891 Problem Gastroesophageal reflux disease with esophagitis K 21.0 Active 736890029 Problem Body mass index (BMI) of 38.0-38.9 in adult Z68.38 Active 225492218 Problem Morbid (severe) obesity due to excess calories E66 .01 Active 745362158 ALLERGIES No Information ENCOUNTERS Encounter Location Date Diagnosis [place] [id number] [place] [id number] [place] [phone] Jun, Lumbosacral radiculopathy du e to osteoarthritis of spine M47.27 [place] [address] [place] [id number] [place] [address] May, Type 2 diabetes mellitus wit h other specified complication, without long-term current use of insulin E11.69 ; Dyslipidemia (high LDL; low HDL) E78.5 ; Hypertension I10 ; CAD (coronary artery disease) I25.10 and Gastroesophageal reflux disease with esophagitis K21.0 [facility] [place] [address] [place] [id number] [place] [phone] May, Hypertension I10 [place] [address] [address] [facility] [id number] [address] [place] [phone] May, Lumbosacral radiculopathy du e to osteoarthritis of spine M47.27 [place] [address] [address] [facility] [id number] [address] [place] [address] Apr, Lumbosacral radiculopathy du e to osteoarthritis of spine M47.27 ; Right anterior shoulder pain M25.511 and Seasonal allergic rhinitis due to pollen J30.1 [place] [address] [address] [facility] [id number] [address] [place] [address] Apr, Right medial knee pain M25.5 61 [place] [address] [address] [facility] [id number] [address] [place] [phone] Mar, [place] [address] [place] [id number] [place] [phone] Mar, Right medial knee pain M25.5 61 [place] [address] [address] [facility] [id number] [address] [place] [phone] Feb, Right medial knee pain M25.5 61 [place] [address] [address] [facility] [id number] [address] [place] [phone] Feb, Hypertension I10 ; Type 2 di [...] Transient visual loss of both eyes H53.123 [place] [address] [address] [facility] [id number] [address] [place] [phone] Jan, Right medial knee pain M25.5 61 [place] [address] [place] [id number] [place] [phone] Jan, [facility] [place] [address] [id number] [address] [place] [phone] Dec, [facility] [address] [id number] [address] [place] [phone] Dec, Acute maxillary sinusitis, r ecurrence not specified J01.00 [facility] [place] [address] [id number] [address] [place] [phone] Dec, [facility] [place] [address] [id number] [address] [place] [phone] Dec, Right medial knee pain M25.5 61 [facility] [place] [address] [id number] [address] [place] [phone] November, [facility] [place] [address] [facility] [id number] [address] [place] [phone] November, Right medial knee pain M25.5 61 [facility] [place] [address] [facility] [id number] [address] [place] [phone] Oct, Right medial knee pain M25.5 61 [facility] [place] [address] [facility] [id number] [address] [place] [phone] Sep, Type 2 diabetes mellitus wit hout [...] 38.0-38.9 in adult Z68.38 and Neuropathy G62.9 [facility] [place] [address] [id number] [address] [place] [phone] Aug, Right medial knee pain M25.5 61 [facility] [place] [address] [id number] [address] [place] [address] Aug, Controlled substance agreeme nt signed Z79.899 [place] [address] [place] [id number] [place] [phone] Jul, Right medial knee pain M25.5 61 [place] [address] [place] [id number] [place] [phone] Jun, Right medial knee pain M25.5 61 [place] [address] [place] [id number] [place] [phone] May, Lumbosacral radiculopathy du e to osteoarthritis of spine M47.27 and Chondromalacia, right knee M94.261 [place] [address] [address] May, Right medial knee pain M25.5 61 and Seasonal allergic rhinitis due to pollen J30.1 [place] [address] [place] [id number] [place] [address] Apr, Right medial knee pain M25.5 61 and Gastroesophageal reflux disease with esophagitis K21.0 [place] [address] [place] [id number] [place] [address] Apr, Type 2 diabetes mellitus wit hout complication E11.9 ; Neuropathy G62.9 ; Hypertension I10 ; Vitamin D deficiency E55.9 ; Hypertriglyceridemia E78.1 ; Gastroesophageal reflux disease with esophagitis K21.0 ; CAD (coronary artery disease) I25.10 and Right medial knee pain M25.561 [place] [address] [place] [id number] [place] [address] Mar, Right medial knee pain M25.5 62 and Type 2 diabetes mellitus without complication E11.9 [place] [address] [place] [id number] [place] [address] Feb, Chondromalacia, right knee M 94.261 and Lumbosacral radiculopathy due to osteoarthritis of spine M47.27 [place] [address] [place] [id number] [place] [address] Feb, Parotitis K11.20 [place] [address] [facility] [id number] [address] [place] [address] Feb, Type 2 diabetes mellitus wit hout complication E11.9 ; Neuropathy G62.9 ; Hypertension I10 ; Vitamin D deficiency E55.9 ; Hyperlipidemia, unspecified hyperlipidemia type E78.5 ; Morbid obesity due to excess calories E66.01 ; CAD (coronary artery disease) I25.10 ; Gastroesophageal reflux disease with esophagitis K21.0 ; Lymphadenopathy, periauricular R59.0 ; Right medial knee pain M25.561 and Parotitis K11.20 [place] [address] [address] [facility] [id number] [address] [place] [phone] Jan, [facility] [id number] [place] [id number] Jan, Dental examination Z01.20 an d Dental caries K02.9 [place] [id number] [place] [address] Jan, Vitamin D deficiency E55.9 [place] [address] [address] [facility] [id number] [address] [place] [phone] Jan, Right medial knee pain M25.5 61 [place] [address] [facility] [id number] [place] [address] Jan, Type 2 diabetes mellitus wit hout complication E11.9 ; History of UT (myocardial infarction) I25.2 ; Hypertension I10 ; Gastroesophageal reflux disease with esophagitis K21.0 ; Seasonal allergic rhinitis due to pollen J30.1 and Right medial knee pain M25.561 [place] [address] [address] [facility] [id number] [address] [place] [address] Dec, Seasonal allergic rhinitis d ue to pollen J30.1 [place] [address] [facility] [id number] [address] [place] [address] November, Right medial knee pain M25.5 61 [place] [address] [address] [facility] [id number] [address] [place] [address] November, Other chest pain R07.89 ; CA D (coronary artery disease) I25.10 ; Hypertension I10 and Hyperlipidemia, unspecified hyperlipidemia type E78.5 [facility] [place] [address] [address] November, Hypertension I10 [place] [address] [address] Oct, Hypertriglyceridemia E78.1 [place] [address] [address] Oct, Type 2 diabetes mellitus wit hout complication E11.9 ; Neuropathy G62.9 ; History of UT (myocardial infarction) I25.2 ; Hypertension I10 ; Vitamin D deficiency E55.9 ; Hypertriglyceridemia E78.1 ; Right medial knee pain M25.561 ; Gastroesophageal reflux disease with esophagitis K21.0 and Nausea R11.0 [place] [address] [address] Sep, [facility] [address] [id number] Jul, Dental caries K02.9 and Fountain al examination Z01.20 [facility] [address] [id number] Jul, [place] [address] [address] Jun, [facility] [address] [id number] Jun, Dental examination Z01.20 [facility] [place] [address] [address] Jun, [place] [address] [address] Jun, [place] [address] [address] Jun, Right medial knee pain M25.5 61 ; Acute non-recurrent maxillary sinusitis J01.00 and Hypertension I10 [place] [address] [address] 04 Apr, 2016 Type 2 diabetes mellitus wit hout complication E11.9 ; Neuropathy G62.9 ; Hypertension I10 ; Hypertriglyceridemia E78.1 ; Right medial knee pain M25.561 ; Morbid obesity due to excess calories E66.01 ; CAD (coronary artery disease) I25.10 ; Seasonal allergic rhinitis due to pollen J30.1 and Acute non- recurrent frontal sinusitis J01.10 [place] [address] [address] Jan, Type 2 diabetes mellitus wit hout complication E11.9 ; Neuropathy G62.9 ; History of UT (myocardial infarction) I25.2 ; Hypertension I10 ; Vitamin D deficiency E55.9 ; Hypertriglyceridemia E78.1 ; Right medial knee pain M25.561 and Morbid obesity due to excess calories E66.[address] [address] November, [place] [address] [address] November, Type 2 diabetes mellitus wit hout complication E11.9 ; General medical exam Z00.00 ; Neuropathy G62.9 ; History of UT (myocardial infarction) I25.2 ; History of aortic aneurysm repair Z98.89 ; History of vitamin D deficiency Z86.39 ; Hypertension I10 and History of high cholesterol Z86.39 [place] [address] [address] Sep, Diabetes mellitus E11.9 ; Ne uropathy G62.9 ; Hypertension I10 ; CAD (coronary artery disease) I25.10 and Hypertriglyceridemia E78.[address] [address] Sep, [place] [address] [address] Aug, [address] [place] [address] 16 Jun, 2015 [facility] [place] [address] [facility] [id number] [address] [place] [address] 11 Jun, 2015 Type 2 diabetes mellitus wit hout complication E11.9 ; General medical exam Z00.00 ; Neuropathy G62.9 ; History of UT (myocardial infarction) I25.2 ; History of aortic aneurysm repair Z98.89 ; Flank pain R10.9 ; History of vitamin D deficiency Z86.39 ; Hypertension I10 and History of high cholesterol Z86.39 IMMUNIZATIONS No Known Immunizations SOCIAL HISTORY Never Assessed REASON FOR VISIT Controlled Refill 06/17 PLAN OF CARE VITAL SIGNS MEDICATIONS Medication Instructions Dosage Frequency Start Date End Date Duration S maryjane Hydrocodone-Acetaminophen 7.5-325 MG Orally every 6 hrs 1 tablet as needed 6h 10 Jun, 2018 Active RESULTS No Results PROCEDURES No Known procedures INSTRUCTIONS MEDICATIONS ADMINISTERED No Known Medications MEDICAL (GENERAL) HISTORY Type Description Date Medical History Diabetes Type II Medical History Heart Stents x2 2010- Bare metal stent t o OM-2013 [facility] Medical History Hypertension Medical History 2010- [facility]- 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
--- OUTSIDE RECORDS SUMMARY | 2019-08-27 21:04 | XMS REPORT ---
Author Author Gerry MARQUEZ Organization [facility] Address [address] [place] [address] Care Team Providers Care Service Station Operator Name Role Phone ALMA ABUNDIO Unavailable PROBLEMS Type Condition ICD9-CM Code TMR63-AZ Code Onset Dates Condition S tatus SNOMED Code Problem CAD (coronary artery disease) I25.10 Active 72508672 Problem Gastroesophageal reflux disease with esophagitis K 21.0 Active 559331466 Problem Seasonal allergic rhinitis due to pollen J30.1 Active 58157746 Problem Hypertension I10 Active 8872048 3 Problem Neuropathy G62.9 Active 848302296 Problem Vitamin D deficiency E55.9 Active 14520203 Problem Salivary gland infection K11.20 Activ e 27943870 Problem Dyslipidemia (high LDL; low HDL) E78.5 Active 710936534 Problem Body mass index (BMI) of 38.0-38.9 in adult Z68.38 Active 629348648 Problem Lumbosacral radiculopathy due to osteoarthritis of spine M47.27 Active 8470441 Problem Type 2 diabetes mellitus wit h other specified complication, without long-term current use of insulin E11.69 Active 06971301 Problem Morbid (severe) obesity due to excess calories E66 .01 Active 237655879 ALLERGIES No Information ENCOUNTERS Encounter Location Date Diagnosis [facility] [address] [facility] [id number] [address] [place] [phone] Jun, [facility] [address] [place] [id number] [address] [place] [phone] Jun, Salivary gland infection K11 .20 and Hypertension I10 [facility] [address] [place] [id number] [address] [place] [id number] Jun, Lumbosacral radiculopathy du e to osteoarthritis of spine M47.27 [facility] [address] [address] May, Type 2 diabetes mellitus wit h other specified complication, without long-term current use of insulin E11.69 ; Dyslipidemia (high LDL; low HDL) E78.5 ; Hypertension I10 ; CAD (coronary artery disease) I25.10 and Gastroesophageal reflux disease with esophagitis K21.0 [place] [address] [address] 12 May, 2018 Hypertension I10 [place] [address] [address] May, Lumbosacral radiculopathy du e to osteoarthritis of spine M47.27 [place] [address] [address] Apr, Lumbosacral radiculopathy du e to osteoarthritis of spine M47.27 ; Right anterior shoulder pain M25.511 and Seasonal allergic rhinitis due to pollen J30.1 [place] [address] [address] Apr, Right medial knee pain M25.5 [address] [place] [address] [address] Mar, [place] [address] [address] Mar, Right medial knee pain M25.5 [address] [place] [address] [address] Feb, Right medial knee pain M25.5 61 [place] [address] [address] Feb, Hypertension I10 ; Type 2 di [...] Transient visual loss of both eyes H53.123 [facility] [address] [id number] [address] [place] [id number] 09 Jan, 2018 Right medial knee pain M25.5 61 [facility] [address] [id number] [address] [place] [id number] 09 Jan, 2018 [facility] [address] [id number] [address] [place] [id number] Dec, [facility] [address] [id number] [address] [place] [id number] 15 Dec, 2017 Acute maxillary sinusitis, r ecurrence not specified J01.00 [facility] [address] [id number] [address] [place] [id number] 15 Dec, 2017 [facility] [address] [id number] [address] [place] [id number] Dec, Right medial knee pain M25.5 61 [facility] [address] [id number] [address] [place] [phone] November, [facility] [address] [id number] [address] [place] [id number] 02 Nov, 2017 Right medial knee pain M25.5 61 [facility] [address] [id number] [address] [place] [id number] Oct, Right medial knee pain M25.5 61 [facility] [address] [id number] [address] [place] [phone] Sep, Type 2 diabetes mellitus wit hout [...] 38.0-38.9 in adult Z68.38 and Neuropathy G62.9 [place] [address] [place] [phone] Aug, Right medial knee pain M25.5 61 [place] [address] [place] [id number] [address] [place] [phone] Aug, Controlled substance agreeme nt signed Z79.899 [place] [address] [address] Jul, Right medial knee pain M25.5 61 [place] [address] [address] Jun, Right medial knee pain M25.5 61 [place] [address] [address] May, Lumbosacral radiculopathy du e to osteoarthritis of spine M47.27 and Chondromalacia, right knee M94.261 [place] [address] [place] [id number] [address] [place] [address] May, Right medial knee pain M25.5 61 and Seasonal allergic rhinitis due to pollen J30.1 [place] [address] [place] [id number] [address] [place] [id number] 30 Apr, 2017 Right medial knee pain M25.5 61 and Gastroesophageal reflux disease with esophagitis K21.0 [place] [address] [address] Apr, Type 2 diabetes mellitus wit hout complication E11.9 ; Neuropathy G62.9 ; Hypertension I10 ; Vitamin D deficiency E55.9 ; Hypertriglyceridemia E78.1 ; Gastroesophageal reflux disease with esophagitis K21.0 ; CAD (coronary artery disease) I25.10 and Right medial knee pain M25.561 [place] [address] [place] [id number] [address] [place] [phone] 15 Mar, 2017 Right medial knee pain M25.5 61 and Type 2 diabetes mellitus without complication E11.9 [place] [address] [place] [id number] [place] [id number] Feb, Chondromalacia, right knee M 94.261 and Lumbosacral radiculopathy due to osteoarthritis of spine M47.27 [place] [address] [place] [id number] [address] [place] [phone] Feb, Parotitis K11.20 [place] [address] [address] Feb, Type 2 diabetes mellitus wit hout complication E11.9 ; Neuropathy G62.9 ; Hypertension I10 ; Vitamin D deficiency E55.9 ; Hyperlipidemia, unspecified hyperlipidemia type E78.5 ; Morbid obesity due to excess calories E66.01 ; CAD (coronary artery disease) I25.10 ; Gastroesophageal reflux disease with esophagitis K21.0 ; Lymphadenopathy, periauricular R59.0 ; Right medial knee pain M25.561 and Parotitis K11.[address] [address] Jan, [facility] [id number] [place] [id number] Jan, Dental examination Z01.20 an d Dental caries K02.9 [place] [id number] [address] [place] [phone] Jan, Vitamin D deficiency E55.9 [place] [address] [place] [id number] [address] [place] [phone] Jan, Right medial knee pain M25.5 61 [place] [address] [address] Jan, Type 2 diabetes mellitus wit hout complication E11.9 ; History of MS (myocardial infarction) I25.2 ; Hypertension I10 ; Gastroesophageal reflux disease with esophagitis K21.0 ; Seasonal allergic rhinitis due to pollen J30.1 and Right medial knee pain M25.561 [place] [address] [address] Dec, Seasonal allergic rhinitis d ue to pollen J30.1 [facility] [address] [address] November, Right medial knee pain M25.5 61 [facility] [address] [address] November, Other chest pain R07.89 ; CA D (coronary artery disease) I25.10 ; Hypertension I10 and Hyperlipidemia, unspecified hyperlipidemia type E78.5 [place] [address] [address] November, Hypertension I10 [place] [address] [address] Oct, Hypertriglyceridemia E78.1 [place] [address] [address] Oct, Type 2 diabetes mellitus wit hout complication E11.9 ; Neuropathy G62.9 ; History of MS (myocardial infarction) I25.2 ; Hypertension I10 ; Vitamin D deficiency E55.9 ; Hypertriglyceridemia E78.1 ; Right medial knee pain M25.561 ; Gastroesophageal reflux disease with esophagitis K21.0 and Nausea R11.0 [place] [address] [address] Sep, [facility] [address] [place] [id number] [place] [id number] Jul, Dental caries K02.9 and Naoma al examination Z01.20 [facility] [id number] [place] [id number] Jul, [facility] [address] [address] Jun, [facility] [address] [place] [id number] [place] [id number] Jun, Dental examination Z01.20 [facility] [address] [address] Jun, [place] [address] [address] Jun, [place] [address] [address] Jun, Right medial knee pain M25.5 61 ; Acute non-recurrent maxillary sinusitis J01.00 and Hypertension I10 [place] [address] [address] Apr, Type 2 diabetes mellitus wit hout complication E11.9 ; Neuropathy G62.9 ; Hypertension I10 ; Hypertriglyceridemia E78.1 ; Right medial knee pain M25.561 ; Morbid obesity due to excess calories E66.01 ; CAD (coronary artery disease) I25.10 ; Seasonal allergic rhinitis due to pollen J30.1 and Acute non- recurrent frontal sinusitis J01.[address] [address] Jan, Type 2 diabetes mellitus wit hout complication E11.9 ; Neuropathy G62.9 ; History of MS (myocardial infarction) I25.2 ; Hypertension I10 ; Vitamin D deficiency E55.9 ; Hypertriglyceridemia E78.1 ; Right medial knee pain M25.561 and Morbid obesity due to excess calories E66.01 [place] [address] [address] November, [place] [address] [address] November, Type 2 diabetes mellitus wit hout complication E11.9 ; General medical exam Z00.00 ; Neuropathy G62.9 ; History of MS (myocardial infarction) I25.2 ; History of aortic aneurysm repair Z98.89 ; History of vitamin D deficiency Z86.39 ; Hypertension I10 and History of high cholesterol Z86.39 [place] [address] [address] Sep, Diabetes mellitus E11.9 ; Ne uropathy G62.9 ; Hypertension I10 ; CAD (coronary artery disease) I25.10 and Hypertriglyceridemia E78.1 [facility] [address] [facility] [id number] [address] [place] [id number] Sep, [facility] [address] [facility] [id number] [address] [place] [id number] 24 Aug, 2015 [facility] [address] [facility] [id number] [address] [place] [phone] Jun, [facility] [address] [facility] [id number] [address] [place] [phone] Jun, Type 2 diabetes mellitus wit hout complication E11.9 ; General medical exam Z00.00 ; Neuropathy G62.9 ; History of MS (myocardial infarction) I25.2 ; History of aortic aneurysm repair Z98.89 ; Flank pain R10.9 ; History of vitamin D deficiency Z86.39 ; Hypertension I10 and History of high cholesterol Z86.39 IMMUNIZATIONS No Known Immunizations SOCIAL HISTORY Never Assessed REASON FOR VISIT Medication question PLAN OF CARE VITAL SIGNS MEDICATIONS Unknown Medications RESULTS No Results PROCEDURES No Known procedures INSTRUCTIONS MEDICATIONS ADMINISTERED No Known Medications MEDICAL (GENERAL) HISTORY Type Description Date Medical History Diabetes Type II Medical History Heart Stents x2 2010- Bare metal stent t o OM-2013 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
--- OUTSIDE RECORDS SUMMARY | 2019-08-27 21:04 | XMS REPORT ---
Author Author Gerry EDWARDS Organization [facility] Address [address] [place] [address] Care Team Providers Care Welt Stitch Cleaner Name Role Phone ELEUTERIO EDWARDS Unavailable PROBLEMS Type Condition ICD9-CM Code [id number] Code Onset Dates Condition S tatus SNOMED Code Problem Vitamin D deficiency E55.9 Active 36472756 Problem Seasonal allergic rhinitis due to pollen J30.1 Active 23072023 Problem CAD (coronary artery disease) I25.10 Active 30437888 Problem Hypertension I10 Active 0609253 3 Problem Neuropathy G62.9 Active 343656854 Problem Type 2 diabetes mellitus wit h other specified complication, without long-term current use of insulin E11.69 Active 21688192 Problem Dyslipidemia (high LDL; low HDL) E78.5 Active 691283295 Problem Lumbosacral radiculopathy due to osteoarthritis of spine M47.27 Active 2627177 Problem Gastroesophageal reflux disease with esophagitis K 21.0 Active 080708123 Problem Body mass index (BMI) of 38.0-38.9 in adult Z68.38 Active 283243013 Problem Morbid (severe) obesity due to excess calories E66 .01 Active 659404039 ALLERGIES No Information ENCOUNTERS Encounter Location Date Diagnosis [place] [address] [facility] [id number] [address] [place] [phone] Apr, [facility] [address] [facility] [id number] [address] [place] [phone] Apr, Right medial knee pain M25.5 61 [place] [address] [facility] [id number] [address] [place] [address] Mar, [facility] [address] [facility] [id number] [address] [place] [phone] Mar, Right medial knee pain M25.5 61 [place] [address] [id number] [address] [place] [phone] 09 Feb, 2018 Right medial knee pain M25.5 61 [place] [address] [id number] [address] [place] [phone] Feb, Hypertension I10 ; Type 2 di [...] Transient visual loss of both eyes H53.123 [place] [address] [facility] [id number] [address] [place] [phone] 09 Jan, 2018 Right medial knee pain M25.5 61 [place] [address] [facility] [id number] [address] [place] [phone] Jan, [place] [address] [facility] [id number] [address] [place] [phone] Dec, [facility] [address] [facility] [id number] [address] [place] [phone] Dec, Acute maxillary sinusitis, r ecurrence not specified J01.00 [facility] [address] [facility] [id number] [address] [place] [phone] Dec, [facility] [address] [facility] [id number] [address] [place] [address] Dec, Right medial knee pain M25.5 61 [place] [address] [facility] [id number] [address] [place] [phone] November, [facility] [address] [facility] [id number] [address] [place] [phone] November, Right medial knee pain M25.5 61 [facility] [address] [facility] [id number] [address] [place] [address] Oct, Right medial knee pain M25.5 61 [facility] [address] [id number] [address] [place] [phone] Sep, Type 2 diabetes mellitus wit hout [...] 38.0-38.9 in adult Z68.38 and Neuropathy G62.9 [facility] [address] [id number] [address] [place] [phone] Aug, Right medial knee pain M25.5 61 [place] [address] [id number] [address] [place] [phone] Aug, Controlled substance agreeme nt signed Z79.899 [facility] [address] [id number] [address] [place] [phone] Jul, Right medial knee pain M25.5 61 [place] [address] [id number] [address] [place] [phone] Jun, Right medial knee pain M25.5 61 [facility] [address] [id number] [address] [place] [phone] May, Lumbosacral radiculopathy du e to osteoarthritis of spine M47.27 and Chondromalacia, right knee M94.261 [facility] [address] [id number] [address] [place] [phone] May, Right medial knee pain M25.5 61 and Seasonal allergic rhinitis due to pollen J30.1 [facility] [address] [id number] [address] [place] [phone] Apr, Right medial knee pain M25.5 61 and Gastroesophageal reflux disease with esophagitis K21.0 [facility] [address] [place] [id number] [address] [place] [phone] Apr, Type 2 diabetes mellitus wit hout complication E11.9 ; Neuropathy G62.9 ; Hypertension I10 ; Vitamin D deficiency E55.9 ; Hypertriglyceridemia E78.1 ; Gastroesophageal reflux disease with esophagitis K21.0 ; CAD (coronary artery disease) I25.10 and Right medial knee pain M25.561 [place] [address] [address] Mar, Right medial knee pain M25.5 61 and Type 2 diabetes mellitus without complication E11.9 [place] [address] [address] Feb, Chondromalacia, right knee M 94.261 and Lumbosacral radiculopathy due to osteoarthritis of spine M47.27 [place] [address] [address] Feb, Parotitis K11.20 [place] [address] [address] Feb, Type 2 diabetes mellitus wit hout complication E11.9 ; Neuropathy G62.9 ; Hypertension I10 ; Vitamin D deficiency E55.9 ; Hyperlipidemia, unspecified hyperlipidemia type E78.5 ; Morbid obesity due to excess calories E66.01 ; CAD (coronary artery disease) I25.10 ; Gastroesophageal reflux disease with esophagitis K21.0 ; Lymphadenopathy, periauricular R59.0 ; Right medial knee pain M25.561 and Parotitis K11.20 [place] [address] [place] [id number] [address] [place] [phone] Jan, [facility] [address] [place] [id number] [address] [place] [id number] Jan, Dental examination Z01.20 an d Dental caries K02.9 [place] [address] [place] [id number] [address] [place] [address] Jan, Vitamin D deficiency E55.9 [place] [address] [place] [address] Jan, Right medial knee pain M25.5 61 [place] [address] [address] Jan, Type 2 diabetes mellitus wit hout complication E11.9 ; History of MO (myocardial infarction) I25.2 ; Hypertension I10 ; Gastroesophageal reflux disease with esophagitis K21.0 ; Seasonal allergic rhinitis due to pollen J30.1 and Right medial knee pain M25.561 [place] [address] [address] Dec, Seasonal allergic rhinitis d ue to pollen J30.1 [place] [address] [address] November, Right medial knee pain M25.5 61 [place] [address] [address] November, Other chest pain R07.89 ; CA D (coronary artery disease) I25.10 ; Hypertension I10 and Hyperlipidemia, unspecified hyperlipidemia type E78.5 [place] [address] [address] November, Hypertension I10 [place] [address] [address] Oct, Hypertriglyceridemia E78.1 [place] [address] [address] Oct, Type 2 diabetes mellitus wit hout complication E11.9 ; Neuropathy G62.9 ; History of MO (myocardial infarction) I25.2 ; Hypertension I10 ; Vitamin D deficiency E55.9 ; Hypertriglyceridemia E78.1 ; Right medial knee pain M25.561 ; Gastroesophageal reflux disease with esophagitis K21.0 and Nausea R11.0 [place] [place] [id number] [address] [place] [address] Sep, [facility] [address] [place] [id number] [place] [phone] Jul, Dental caries K02.9 and Aubrey al examination Z01.20 [facility] [address] [id number] [address] [place] [phone] Jul, [facility] [address] [facility] [id number] [address] [place] [phone] Jun, [facility] [address] [id number] [address] [place] [address] [phone] Jun, Dental examination Z01.20 [facility] [address] [facility] [id number] [address] [place] [phone] Jun, [facility] [address] [facility] [id number] [place] [phone] Jun, [facility] [address] [facility] [id number] [address] [place] [address] Jun, Right medial knee pain M25.5 61 ; Acute non-recurrent maxillary sinusitis J01.00 and Hypertension I10 [facility] [address] [place] [id number] [address] [place] [phone] Apr, Type 2 diabetes mellitus wit hout complication E11.9 ; Neuropathy G62.9 ; Hypertension I10 ; Hypertriglyceridemia E78.1 ; Right medial knee pain M25.561 ; Morbid obesity due to excess calories E66.01 ; CAD (coronary artery disease) I25.10 ; Seasonal allergic rhinitis due to pollen J30.1 and Acute non- recurrent frontal sinusitis J01.10 [facility] [address] [place] [id number] [address] [place] [phone] Jan, Type 2 diabetes mellitus wit hout complication E11.9 ; Neuropathy G62.9 ; History of MO (myocardial infarction) I25.2 ; Hypertension I10 ; Vitamin D deficiency E55.9 ; Hypertriglyceridemia E78.1 ; Right medial knee pain M25.561 and Morbid obesity due to excess calories E66.01 [facility] [address] [facility] [id number] [address] [place] [phone] November, [facility] [address] [place] [id number] [address] [place] [address] November, Type 2 diabetes mellitus wit hout complication E11.9 ; General medical exam Z00.00 ; Neuropathy G62.9 ; History of [place] (myocardial infarction) I25.2 ; History of aortic aneurysm repair Z98.89 ; History of vitamin D deficiency Z86.39 ; Hypertension I10 and History of high cholesterol Z86.39 [place] [address] [address] Sep, Diabetes mellitus E11.9 ; Ne uropathy G62.9 ; Hypertension I10 ; CAD (coronary artery disease) I25.10 and Hypertriglyceridemia E78.[address] [address] Sep, [place] [address] [address] Aug, [address] [address] Jun, [address] [address] Jun, Type 2 diabetes mellitus wit hout complication E11.9 ; General medical exam Z00.00 ; Neuropathy G62.9 ; History of MO (myocardial infarction) I25.2 ; History of aortic aneurysm repair Z98.89 ; Flank pain R10.9 ; History of vitamin D deficiency Z86.39 ; Hypertension I10 and History of high cholesterol Z86.39 IMMUNIZATIONS No Known Immunizations SOCIAL HISTORY Never Assessed REASON FOR VISIT Controlled refill 04/16 PLAN OF CARE VITAL SIGNS MEDICATIONS Medication Instructions Dosage Frequency Start Date End Date Duration S salus Hydrocodone-Acetaminophen 7.5-325 MG Orally every 6 hrs 1 tablet as needed 6h Apr, 28 days Active RESULTS No Results PROCEDURES No Known procedures INSTRUCTIONS MEDICATIONS ADMINISTERED No Known Medications MEDICAL (GENERAL) HISTORY Type Description Date Medical History Diabetes Type II Medical History Heart Stents x2 2010- Bare metal stent t o OM-2013 [facility] Medical History Hypertension Medical History 2010- [facility]- 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
--- OUTSIDE RECORDS SUMMARY | 2019-08-27 21:04 | XMS REPORT ---
Author Author Gerry SALINAS Organization [facility] Address [address] [place] [address] Care Team Providers Care Paver Layer Name Role Phone RITA LING Unavailable PROBLEMS Type Condition ICD9-CM Code TFA65-EG Code Onset Dates Condition S tatus SNOMED Code Problem Vitamin D deficiency E55.9 Active 84873810 Problem Seasonal allergic rhinitis due to pollen J30.1 Active 41235373 Problem CAD (coronary artery disease) I25.10 Active 54892566 Problem Hypertension I10 Active 6434850 3 Problem Neuropathy G62.9 Active 675871949 Problem Type 2 diabetes mellitus wit h other specified complication, without long-term current use of insulin E11.69 Active 87404228 Problem Dyslipidemia (high LDL; low HDL) E78.5 Active 535856361 Problem Lumbosacral radiculopathy due to osteoarthritis of spine M47.27 Active 6674808 Problem Gastroesophageal reflux disease with esophagitis K 21.0 Active 320088415 Problem Body mass index (BMI) of 38.0-38.9 in adult Z68.38 Active 920549196 Problem Morbid (severe) obesity due to excess calories E66 .01 Active 912031011 ALLERGIES No Information ENCOUNTERS Encounter Location Date Diagnosis [place] [id number] [facility] [id number] [address] [place] [phone] Mar, [facility] [address] [facility] [id number] [address] [place] [phone] Mar, Right medial knee pain M25.5 61 [facility] [address] [facility] [id number] [address] [place] [phone] Feb, Right medial knee pain M25.5 61 [facility] [address] [facility] [id number] [address] [place] [phone] Feb, Hypertension I10 ; Type 2 di [...] Transient visual loss of both eyes H53.123 [facility] [address] [id number] [address] [place] [phone] 09 Jan, 2018 Right medial knee pain M25.5 61 [facility] [address] [id number] [address] [place] [phone] Jan, [place] [address] [id number] [address] [place] [phone] Dec, [facility] [address] [id number] [address] [place] [phone] 15 Dec, 2017 Acute maxillary sinusitis, r ecurrence not specified J01.00 [facility] [address] [id number] [address] [place] [phone] 15 Dec, 2017 [place] [address] [id number] [address] [place] [phone] 07 Dec, 2017 Right medial knee pain M25.5 61 [place] [address] [id number] [address] [place] [phone] November, [facility] [address] [id number] [address] [place] [phone] November, Right medial knee pain M25.5 61 [facility] [address] [id number] [address] [place] [phone] Oct, Right medial knee pain M25.5 61 [place] [address] [facility] [id number] [address] [place] [phone] Sep, Type 2 diabetes mellitus wit hout [...] 38.0-38.9 in adult Z68.38 and Neuropathy G62.9 [place] [address] [place] [phone] Aug, Right medial knee pain M25.5 61 [place] [address] [phone] Aug, Controlled substance agreeme nt signed Z79.899 [place] [address] [phone] Jul, Right medial knee pain M25.5 61 [place] [address] [address] Jun, Right medial knee pain M25.5 61 [place] [address] [address] May, Lumbosacral radiculopathy du e to osteoarthritis of spine M47.27 and Chondromalacia, right knee M94.261 [place] [address] [place] [phone] May, Right medial knee pain M25.5 61 and Seasonal allergic rhinitis due to pollen J30.1 [place] [address] [place] [phone] Apr, Right medial knee pain M25.5 61 and Gastroesophageal reflux disease with esophagitis K21.0 [place] [address] [phone] 03 Apr, 2017 Type 2 diabetes mellitus wit hout complication E11.9 ; Neuropathy G62.9 ; Hypertension I10 ; Vitamin D deficiency E55.9 ; Hypertriglyceridemia E78.1 ; Gastroesophageal reflux disease with esophagitis K21.0 ; CAD (coronary artery disease) I25.10 and Right medial knee pain M25.561 [place] [address] [facility] [id number] [address] [place] [phone] Mar, Right medial knee pain M25.5 61 and Type 2 diabetes mellitus without complication E11.9 [place] [address] [facility] [id number] [address] [place] [phone] Feb, Chondromalacia, right knee M 94.261 and Lumbosacral radiculopathy due to osteoarthritis of spine M47.27 [place] [address] [facility] [id number] [address] [place] [phone] Feb, Parotitis K11.20 [place] [address] [place] [id number] [place] [phone] Feb, Type 2 diabetes mellitus wit hout complication E11.9 ; Neuropathy G62.9 ; Hypertension I10 ; Vitamin D deficiency E55.9 ; Hyperlipidemia, unspecified hyperlipidemia type E78.5 ; Morbid obesity due to excess calories E66.01 ; CAD (coronary artery disease) I25.10 ; Gastroesophageal reflux disease with esophagitis K21.0 ; Lymphadenopathy, periauricular R59.0 ; Right medial knee pain M25.561 and Parotitis K11.20 [place] [address] [place] [phone] Jan, [facility] [address] [place] [id number] [address] [place] [id number] Jan, Dental examination Z01.20 an d Dental caries K02.9 [place] [address] [facility] [id number] [address] [place] [phone] Jan, Vitamin D deficiency E55.9 [place] [address] [facility] [id number] [address] [place] [phone] Jan, Right medial knee pain M25.5 61 [place] [address] [facility] [id number] [address] [place] [phone] Jan, Type 2 diabetes mellitus wit hout complication E11.9 ; History of [place] (myocardial infarction) I25.2 ; Hypertension I10 ; Gastroesophageal reflux disease with esophagitis K21.0 ; Seasonal allergic rhinitis due to pollen J30.1 and Right medial knee pain M25.561 [place] [address] [address] Dec, Seasonal allergic rhinitis d ue to pollen J30.1 [place] [address] [address] November, Right medial knee pain M25.5 61 [place] [address] [address] November, Other chest pain R07.89 ; CA D (coronary artery disease) I25.10 ; Hypertension I10 and Hyperlipidemia, unspecified hyperlipidemia type E78.5 [place] [address] [address] November, Hypertension I10 [place] [address] [address] Oct, Hypertriglyceridemia E78.1 [place] [address] [address] Oct, Type 2 diabetes mellitus wit hout complication E11.9 ; Neuropathy G62.9 ; History of [place] (myocardial infarction) I25.2 ; Hypertension I10 ; Vitamin D deficiency E55.9 ; Hypertriglyceridemia E78.1 ; Right medial knee pain M25.561 ; Gastroesophageal reflux disease with esophagitis K21.0 and Nausea R11.0 [place] [address] [place] [id number] [address] [place] [phone] Sep, [facility] [id number] [place] [id number] Jul, Dental caries K02.9 and [place] al examination Z01.20 [facility] [address] [place] [id number] [place] [id number] Jul, [place] [address] [address] Jun, [facility] [address] [facility] [id number] [address] [place] [id number] 13 Jun, 2016 Dental examination Z01.20 [place] [address] [place] [id number] [address] [place] [phone] 09 Jun, 2016 [place] [address] [address] Jun, [place] [address] [place] [id number] [address] [place] [phone] Jun, Right medial knee pain M25.5 61 ; Acute non-recurrent maxillary sinusitis J01.00 and Hypertension I10 [place] [address] [place] [id number] [address] [place] [phone] 04 Apr, 2016 Type 2 diabetes mellitus wit hout complication E11.9 ; Neuropathy G62.9 ; Hypertension I10 ; Hypertriglyceridemia E78.1 ; Right medial knee pain M25.561 ; Morbid obesity due to excess calories E66.01 ; CAD (coronary artery disease) I25.10 ; Seasonal allergic rhinitis due to pollen J30.1 and Acute non- recurrent frontal sinusitis J01.10 [place] [address] [place] [id number] [address] [place] [phone] 14 Jan, 2016 Type 2 diabetes mellitus wit hout complication E11.9 ; Neuropathy G62.9 ; History of [place] (myocardial infarction) I25.2 ; Hypertension I10 ; Vitamin D deficiency E55.9 ; Hypertriglyceridemia E78.1 ; Right medial knee pain M25.561 and Morbid obesity due to excess calories E66.01 [place] [address] [facility] [id number] [address] [place] [phone] November, [place] [address] [place] [id number] [address] [place] [phone] November, Type 2 diabetes mellitus wit hout complication E11.9 ; General medical exam Z00.00 ; Neuropathy G62.9 ; History of [place] (myocardial infarction) I25.2 ; History of aortic aneurysm repair Z98.89 ; History of vitamin D deficiency Z86.39 ; Hypertension I10 and History of high cholesterol Z86.39 [facility] [address] [facility] [id number] [address] [place] [phone] Sep, Diabetes mellitus E11.9 ; Ne uropathy G62.9 ; Hypertension I10 ; CAD (coronary artery disease) I25.10 and Hypertriglyceridemia E78.1 [facility] [address] [facility] [id number] [address] [place] [phone] Sep, [facility] [address] [facility] [id number] [address] [place] [phone] Aug, [facility] [address] [place] [id number] [address] [place] [phone] Jun, [facility] [address] [place] [id number] [address] [place] [phone] Jun, Type 2 diabetes mellitus wit hout complication E11.9 ; General medical exam Z00.00 ; Neuropathy G62.9 ; History of [place] (myocardial infarction) I25.2 ; History of aortic aneurysm repair Z98.89 ; Flank pain R10.9 ; History of vitamin D deficiency Z86.39 ; Hypertension I10 and History of high cholesterol Z86.39 IMMUNIZATIONS No Known Immunizations SOCIAL HISTORY Never Assessed REASON FOR VISIT Hydrocodone 03/14 PLAN OF CARE VITAL SIGNS MEDICATIONS Medication Instructions Dosage Frequency Start Date End Date Duration S slaus Hydrocodone-Acetaminophen 7.5-325 MG Orally every 6 hrs 1 tablet as needed 6h Mar, 28 days Active RESULTS No Results PROCEDURES No Known procedures INSTRUCTIONS MEDICATIONS ADMINISTERED No Known Medications MEDICAL (GENERAL) HISTORY Type Description Date Medical History Diabetes Type II Medical History Heart Stents x2 2010- Bare metal stent t o OM-2013 [facility] Medical History Hypertension Medical History 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
--- OUTSIDE RECORDS SUMMARY | 2019-08-27 21:04 | XMS REPORT ---
Author Author Gerry MARQUEZ Organization [facility] Address [address] [place] [address] Care Team Providers Care Utility Mechanic Name Role Phone ALMA ABUNDIO Unavailable PROBLEMS Type Condition ICD9-CM Code FSB03-WR Code Onset Dates Condition S tatus SNOMED Code Problem Vitamin D deficiency E55.9 Active 84170352 Problem Seasonal allergic rhinitis due to pollen J30.1 Active 54222111 Problem CAD (coronary artery disease) I25.10 Active 80292888 Problem Hypertension I10 Active 7445067 3 Problem Neuropathy G62.9 Active 390939944 Problem Type 2 diabetes mellitus wit h other specified complication, without long-term current use of insulin E11.69 Active 75813117 Problem Dyslipidemia (high LDL; low HDL) E78.5 Active 662889385 Problem Lumbosacral radiculopathy due to osteoarthritis of spine M47.27 Active 8095139 Problem Gastroesophageal reflux disease with esophagitis K 21.0 Active 451788621 Problem Body mass index (BMI) of 38.0-38.9 in adult Z68.38 Active 203137240 Problem Morbid (severe) obesity due to excess calories E66 .01 Active 956637613 ALLERGIES No Known Allergies ENCOUNTERS Encounter Location Date Diagnosis [place] [id number] [place] [id number] [place] [phone] May, [facility] [address] [place] [id number] [place] [phone] Apr, Lumbosacral radiculopathy du e to osteoarthritis of spine M47.27 ; Right anterior shoulder pain M25.511 and Seasonal allergic rhinitis due to pollen J30.1 [facility] [address] [place] [id number] [place] [phone] Apr, 2018 Right medial knee pain M25.5 61 [place] [address] [place] [id number] [place] [phone] Mar, [facility] [address] [facility] [id number] [address] [place] [phone] Mar, Right medial knee pain M25.5 61 [facility] [address] [facility] [id number] [address] [place] [phone] Feb, Right medial knee pain M25.5 61 [facility] [address] [facility] [id number] [address] [place] [phone] Feb, Hypertension I10 ; Type 2 di [...] Transient visual loss of both eyes H53.123 [place] [address] [facility] [id number] [address] [place] [phone] Jan, Right medial knee pain M25.5 61 [facility] [address] [facility] [id number] [address] [place] [phone] Jan, [facility] [address] [facility] [id number] [address] [place] [phone] Dec, [facility] [address] [facility] [id number] [address] [place] [phone] Dec, Acute maxillary sinusitis, r ecurrence not specified J01.00 [facility] [address] [facility] [id number] [address] [place] [phone] Dec, [facility] [address] [facility] [id number] [address] [place] [phone] Dec, Right medial knee pain M25.5 61 [facility] [address] [facility] [id number] [address] [place] [phone] November, [facility] [address] [facility] [id number] [address] [place] [phone] November, Right medial knee pain M25.5 61 [place] [address] [id number] [address] [place] [phone] Oct, Right medial knee pain M25.5 61 [place] [address] [id number] [address] [place] [phone] Sep, Type 2 diabetes mellitus wit hout [...] 38.0-38.9 in adult Z68.38 and Neuropathy G62.9 [place] [address] [id number] [address] [place] [phone] Aug, Right medial knee pain M25.5 61 [place] [address] [id number] [address] [place] [phone] Aug, Controlled substance agreeme nt signed Z79.899 [place] [address] [id number] [address] [place] [phone] Jul, Right medial knee pain M25.5 61 [place] [address] [id number] [address] [place] [phone] Jun, Right medial knee pain M25.5 61 [place] [address] [id number] [address] [place] [phone] May, Lumbosacral radiculopathy du e to osteoarthritis of spine M47.27 and Chondromalacia, right knee M94.261 [place] [address] [id number] [address] [place] [phone] May, Right medial knee pain M25.5 61 and Seasonal allergic rhinitis due to pollen J30.1 [place] [address] [address] Apr, Right medial knee pain M25.5 61 and Gastroesophageal reflux disease with esophagitis K21.0 [place] [address] [address] Apr, Type 2 diabetes mellitus wit hout complication E11.9 ; Neuropathy G62.9 ; Hypertension I10 ; Vitamin D deficiency E55.9 ; Hypertriglyceridemia E78.1 ; Gastroesophageal reflux disease with esophagitis K21.0 ; CAD (coronary artery disease) I25.10 and Right medial knee pain M25.561 [place] [address] [address] Mar, Right medial knee pain M25.5 61 and Type 2 diabetes mellitus without complication E11.9 [place] [address] [address] Feb, Chondromalacia, right knee M 94.261 and Lumbosacral radiculopathy due to osteoarthritis of spine M47.27 [place] [address] [address] Feb, Parotitis K11.20 [place] [address] [address] Feb, Type 2 diabetes mellitus wit hout complication E11.9 ; Neuropathy G62.9 ; Hypertension I10 ; Vitamin D deficiency E55.9 ; Hyperlipidemia, unspecified hyperlipidemia type E78.5 ; Morbid obesity due to excess calories E66.01 ; CAD (coronary artery disease) I25.10 ; Gastroesophageal reflux disease with esophagitis K21.0 ; Lymphadenopathy, periauricular R59.0 ; Right medial knee pain M25.561 and Parotitis K11.20 [facility] [address] [place] [id number] [address] [place] [phone] Jan, [facility] [address] [place] [id number] [place] [phone] Jan, Dental examination Z01.20 an d Dental caries K02.9 [place] [address] [address] Jan, Vitamin D deficiency E55.9 [place] [address] [address] Jan, Right medial knee pain M25.5 61 [place] [address] [address] Jan, Type 2 diabetes mellitus wit hout complication E11.9 ; History of [place] (myocardial infarction) I25.2 ; Hypertension I10 ; Gastroesophageal reflux disease with esophagitis K21.0 ; Seasonal allergic rhinitis due to pollen J30.1 and Right medial knee pain M25.561 [place] [address] [address] Dec, Seasonal allergic rhinitis d ue to pollen J30.1 [place] [address] [address] November, Right medial knee pain M25.5 61 [place] [address] [phone] November, Other chest pain R07.89 ; CA D (coronary artery disease) I25.10 ; Hypertension I10 and Hyperlipidemia, unspecified hyperlipidemia type E78.5 [place] [address] [address] November, Hypertension I10 [place] [address] [address] Oct, Hypertriglyceridemia E78.1 [place] [address] [address] Oct, Type 2 diabetes mellitus wit hout complication E11.9 ; Neuropathy G62.9 ; History of [place] (myocardial infarction) I25.2 ; Hypertension I10 ; Vitamin D deficiency E55.9 ; Hypertriglyceridemia E78.1 ; Right medial knee pain M25.561 ; Gastroesophageal reflux disease with esophagitis K21.0 and Nausea R11.0 [facility] [address] [address] Sep, [facility] [address] [place] [id number] [place] [id number] Jul, Dental caries K02.9 and Independence al examination Z01.20 [facility] [id number] [place] [phone] Jul, [facility] [address] [address] Jun, [facility] [address] [id number] Jun, Dental examination Z01.20 [place] [address] [address] Jun, [place] [address] [address] Jun, [facility] [address] [address] Jun, Right medial knee pain M25.5 61 ; Acute non-recurrent maxillary sinusitis J01.00 and Hypertension I10 [place] [address] [phone] 04 Apr, 2016 Type 2 diabetes mellitus wit hout complication E11.9 ; Neuropathy G62.9 ; Hypertension I10 ; Hypertriglyceridemia E78.1 ; Right medial knee pain M25.561 ; Morbid obesity due to excess calories E66.01 ; CAD (coronary artery disease) I25.10 ; Seasonal allergic rhinitis due to pollen J30.1 and Acute non- recurrent frontal sinusitis J01.10 [place] [address] [address] Jan, Type 2 diabetes mellitus wit hout complication E11.9 ; Neuropathy G62.9 ; History of [place] (myocardial infarction) I25.2 ; Hypertension I10 ; Vitamin D deficiency E55.9 ; Hypertriglyceridemia E78.1 ; Right medial knee pain M25.561 and Morbid obesity due to excess calories E66.01 [place] [address] [address] November, [place] [address] [address] November, Type 2 diabetes mellitus wit hout complication E11.9 ; General medical exam Z00.00 ; Neuropathy G62.9 ; History of [place] (myocardial infarction) I25.2 ; History of aortic aneurysm repair Z98.89 ; History of vitamin D deficiency Z86.39 ; Hypertension I10 and History of high cholesterol Z86.39 [place] [address] [address] Sep, Diabetes mellitus E11.9 ; Ne uropathy G62.9 ; Hypertension I10 ; CAD (coronary artery disease) I25.10 and Hypertriglyceridemia E78.1 [place] [address] [address] Sep, [place] [address] [address] Aug, [place] [address] [address] Jun, [place] [address] [address] Jun, Type 2 diabetes mellitus wit hout complication E11.9 ; General medical exam Z00.00 ; Neuropathy G62.9 ; History of [place] (myocardial infarction) I25.2 ; History of aortic aneurysm repair Z98.89 ; Flank pain R10.9 ; History of vitamin D deficiency Z86.39 ; Hypertension I10 and History of high cholesterol Z86.39 IMMUNIZATIONS No Known Immunizations SOCIAL HISTORY Never Assessed REASON FOR VISIT f/u pain mgmt K Maria Elena SCHUMACHER, Possible ear infection x10 days PLAN OF CARE Activity Details Follow Up 3 Months Reason:Pain VITAL SIGNS Height 67 in 2018-05-08 Weight 246.2 lbs 2018-05-08 Temperature 97.2 degrees Fahrenheit 2018-05-08 Heart Rate 61 bpm 2018-05-08 Respiratory Rate 20 2018-05-08 BMI 38.56 kg/m2 2018-05-08 Blood pressure systolic 148 mmHg 2018-05-08 Blood pressure diastolic 88 mmHg 2018-05-08 MEDICATIONS Medication Instructions Dosage Frequency Start Date End Date Duration S maryjane Cetirizine HCl 10 mg Orally Once a day 1 tablet 24h Apr, Active Coreg 6.25 MG Orally 2 times a day 1 tablet 12h 90 days Active Gabapentin 100 MG TAKE ONE CAPSULE BY MOUTH ONCE DAILY AT BEDTIM E Active Ondansetron 4 MG Orally every 8 hrs 1 tablet on the tong ue and allow to dissolve 8h Oct, 10 days Active Nitroglycerin 0.4 MG Sublingual one tablet for ch est pain every 5 minutes x 3 doses then to the ER as directed Jun, A ctive Fluticasone Propionate 50 MCG/ACT Nasally Once a day 1 spray in each nostril 24h Apr, 30 days Active Atorvastatin Calcium 10 mg Orally Once a day 1 tablet 24h 10 2016 90 days Active Glucocard Expression Test - In Vitro 2 times a day as directed 12h 15 Feb, 2017 Active Lisinopril 20 MG Orally Once a day 1 tablet 24h Jun, 90 days Active Metformin HCl 1000 MG Orally 2 times a day TAKE ONE TABLET B Y MOUTH TWICE DAILY WITH MEALS 12h 90 Active Aspirin Adult Low Dose 81 MG Orally Once a day 1 tablet 24h 90 days Active Hydrocodone-Acetaminophen 7.5-325 MG Orally every 6 hrs 1 tablet as needed 6h Apr, Active Pantoprazole Sodium 20 mg Orally Once a day TAKE ONE TABLET BY M OUTH ONCE DAILY 24h 90 Active Plavix 75 MG Orally Once a day 1 tablet 24h Jun, 90 days Active RESULTS No Results PROCEDURES No Known procedures INSTRUCTIONS MEDICATIONS ADMINISTERED No Known Medications MEDICAL (GENERAL) HISTORY Type Description Date Medical History Diabetes Type II Medical History Heart Stents x2 2010- Bare metal stent t o OM-2013 [facility] Medical History Hypertension Medical History 2010- 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
--- OUTSIDE RECORDS SUMMARY | 2019-08-27 21:04 | XMS REPORT ---
Author Author Gerry Landa Organization [facility] Address [address] [place] [address] Care Team Providers Care Neon Tube Pumper Name Role Phone LING Landa Unavailable PROBLEMS Type Condition ICD9-CM Code [id number] Code Onset Dates Condition S tatus SNOMED Code Problem Vitamin D deficiency E55.9 Active 57547037 Problem Seasonal allergic rhinitis due to pollen J30.1 Active 87214469 Problem CAD (coronary artery disease) I25.10 Active 65628576 Problem Hypertension I10 Active 5789041 3 Problem Neuropathy G62.9 Active 751404752 Problem Type 2 diabetes mellitus wit h other specified complication, without long-term current use of insulin E11.69 Active 46676082 Problem Dyslipidemia (high LDL; low HDL) E78.5 Active 089017217 Problem Lumbosacral radiculopathy due to osteoarthritis of spine M47.27 Active 9196585 Problem Gastroesophageal reflux disease with esophagitis K 21.0 Active 256586880 Problem Body mass index (BMI) of 38.0-38.9 in adult Z68.38 Active 658693610 Problem Morbid (severe) obesity due to excess calories E66 .01 Active 049711437 ALLERGIES No Information ENCOUNTERS Encounter Location Date Diagnosis [facility] [address] [facility]NOTE [facility]] [id number] [address] [place] [phone] Apr, [facility] [address] [facility]NOTE [facility]] [id number] [address] [place] [phone] Apr, [facility] [address] [facility]NOTE [facility]] [id number] [address] [place] [phone] Mar, [facility] [address] [facility]NOTE [facility]] [id number] [address] [place] [phone] 06 Mar, 2018 Right medial knee pain M25.5 61 [facility] [address] [id number] [address] [place] [phone] 09 Feb, 2018 Right medial knee pain M25.5 61 [facility] [address] [id number] [address] [place] [phone] 03 Feb, 2018 Hypertension I10 ; Type 2 di abetes mellitus with other specified complication, without long-term current use of insulin E11.69 ; Dyslipidemia (high LDL; low HDL) E78.5 ; Vitamin D deficiency E55.9 ; Neuropathy G62.9 ; CAD (coronary artery disease) I25.10 ; Gastroesophageal reflux disease with esophagitis K21.0 ; Seasonal allergic rhinitis due to pollen J30.1 and Transient visual loss of both eyes H53.123 [facility] [address] [id number] [address] [place] [phone] 09 Jan, 2018 Right medial knee pain M25.5 61 [facility] [address] [id number] [address] [place] [phone] Jan, [facility] [address] [facility]] [id number] [address] [place] [phone] Dec, [facility] [address] [id number] [address] [place] [phone] Dec, Acute maxillary sinusitis, r ecurrence not specified J01.00 [facility] [address] [id number] [address] [place] [phone] 15 Dec, 2017 [facility] [address] [facility]NOTE 3] [id number] [address] [place] [phone] Dec, Right medial knee pain M25.5 61 [facility] [address] [id number] [address] [place] [phone] November, [facility] [address] [facility]] [id number] [address] [place] [phone] November, Right medial knee pain M25.5 61 [facility] [address] [facility]] [id number] [address] [place] [phone] Oct, Right medial knee pain M25.5 61 [place] [address] [id number] [address] [place] [phone] Sep, Type 2 diabetes mellitus wit hout [...] 38.0-38.9 in adult Z68.38 and Neuropathy G62.9 [place] [address] [id number] [address] [place] [phone] Aug, Right medial knee pain M25.5 61 [place] [address] [id number] [address] [place] [phone] Aug, Controlled substance agreeme nt signed Z79.899 [place] [address] [id number] [address] [place] [phone] Jul, Right medial knee pain M25.5 61 [place] [address] [facility]] [id number] [address] [place] [phone] Jun, Right medial knee pain M25.5 61 [place] [address] [facility]] [id number] [address] [place] [phone] May, Lumbosacral radiculopathy du e to osteoarthritis of spine M47.27 and Chondromalacia, right knee M94.261 [place] [address] [id number] [address] [place] [phone] May, Right medial knee pain M25.5 61 and Seasonal allergic rhinitis due to pollen J30.1 [place] [address] [facility] 3] [id number] [address] [place] [phone] Apr, Right medial knee pain M25.5 61 and Gastroesophageal reflux disease with esophagitis K21.0 [place] [address] [facility] 3] [id number] [address] [place] [phone] Apr, Type 2 diabetes mellitus wit hout complication E11.9 ; Neuropathy G62.9 ; Hypertension I10 ; Vitamin D deficiency E55.9 ; Hypertriglyceridemia E78.1 ; Gastroesophageal reflux disease with esophagitis K21.0 ; CAD (coronary artery disease) I25.10 and Right medial knee pain M25.561 [place] [address] [place] [id number] [address] [place] [phone] Mar, Right medial knee pain M25.5 61 and Type 2 diabetes mellitus without complication E11.9 [place] [address] [address] Feb, Chondromalacia, right knee M 94.261 and Lumbosacral radiculopathy due to osteoarthritis of spine M47.27 [place] [address] [phone] Feb, Parotitis K11.20 [place] [address] [phone] Feb, Type 2 diabetes mellitus wit hout complication E11.9 ; Neuropathy G62.9 ; Hypertension I10 ; Vitamin D deficiency E55.9 ; Hyperlipidemia, unspecified hyperlipidemia type E78.5 ; Morbid obesity due to excess calories E66.01 ; CAD (coronary artery disease) I25.10 ; Gastroesophageal reflux disease with esophagitis K21.0 ; Lymphadenopathy, periauricular R59.0 ; Right medial knee pain M25.561 and Parotitis K11.20 [place] [id number] [place] [phone] Jan, [facility] [address] [place] [id number] [address] [place] [phone] Jan, Dental examination Z01.20 an d Dental caries K02.9 [place] [address] [place] [id number] [address] [place] [phone] Jan, Vitamin D deficiency E55.9 [place] [address] [place] [id number] [address] [place] [phone] Jan, Right medial knee pain M25.5 61 [facility] [address] [address] Jan, Type 2 diabetes mellitus wit hout complication E11.9 ; History of VA (myocardial infarction) I25.2 ; Hypertension I10 ; Gastroesophageal reflux disease with esophagitis K21.0 ; Seasonal allergic rhinitis due to pollen J30.1 and Right medial knee pain M25.561 [place] [address] [address] Dec, Seasonal allergic rhinitis d ue to pollen J30.1 [place] [address] [phone] November, Right medial knee pain M25.5 61 [place] [address] [address] November, Other chest pain R07.89 ; CA D (coronary artery disease) I25.10 ; Hypertension I10 and Hyperlipidemia, unspecified hyperlipidemia type E78.5 [place] [address] [phone] November, Hypertension I10 [place] [address] [address] Oct, Hypertriglyceridemia E78.1 [place] [address] [address] Oct, Type 2 diabetes mellitus wit hout complication E11.9 ; Neuropathy G62.9 ; History of VA (myocardial infarction) I25.2 ; Hypertension I10 ; Vitamin D deficiency E55.9 ; Hypertriglyceridemia E78.1 ; Right medial knee pain M25.561 ; Gastroesophageal reflux disease with esophagitis K21.0 and Nausea R11.0 [facility] [address] [place] [id number] [address] [place] [phone] Sep, [facility] [address] [place] [id number] [address] [place] [phone] Jul, Dental caries K02.9 and [place] al examination Z01.20 [facility] [address] [id number] [address] [place] [phone] Jul, [facility] [address] [facility]] [id number] [address] [place] [phone] Jun, [facility] [address] [id number] [address] [place] [address] [phone] Jun, Dental examination Z01.20 [facility] [address] [facility]] [id number] [address] [place] [phone] Jun, [facility] [address] [facility]] [id number] [address] [place] [phone] Jun, [facility] [address] [place] [id number] [address] [place] [phone] Jun, Right medial knee pain M25.5 61 ; Acute non-recurrent maxillary sinusitis J01.00 and Hypertension I10 [place] [address] [place] [id number] [address] [place] [phone] Apr, Type 2 diabetes mellitus wit hout complication E11.9 ; Neuropathy G62.9 ; Hypertension I10 ; Hypertriglyceridemia E78.1 ; Right medial knee pain M25.561 ; Morbid obesity due to excess calories E66.01 ; CAD (coronary artery disease) I25.10 ; Seasonal allergic rhinitis due to pollen J30.1 and Acute non- recurrent frontal sinusitis J01.10 [facility] [address] [place] [id number] [address] [place] [phone] Jan, Type 2 diabetes mellitus wit hout complication E11.9 ; Neuropathy G62.9 ; History of VA (myocardial infarction) I25.2 ; Hypertension I10 ; Vitamin D deficiency E55.9 ; Hypertriglyceridemia E78.1 ; Right medial knee pain M25.561 and Morbid obesity due to excess calories E66.01 [facility] [address] [facility]] [id number] [address] [place] [phone] November, [facility] [address] [place] [id number] [address] [place] [phone] November, Type 2 diabetes mellitus wit hout complication E11.9 ; General medical exam Z00.00 ; Neuropathy G62.9 ; History of VA (myocardial infarction) I25.2 ; History of aortic aneurysm repair Z98.89 ; History of vitamin D deficiency Z86.39 ; Hypertension I10 and History of high cholesterol Z86.39 [place] [id number] [place] [phone] Sep, Diabetes mellitus E11.9 ; Ne uropathy G62.9 ; Hypertension I10 ; CAD (coronary artery disease) I25.10 and Hypertriglyceridemia E78.1 [place] [address] [place] [id number] [place] [phone] Sep, [place] [address] [place] [id number] [address] [place] [phone] Aug, [place] [address] [address] Jun, [place] [address] [place] [id number] [address] [place] [phone] Jun, Type 2 diabetes mellitus wit hout complication E11.9 ; General medical exam Z00.00 ; Neuropathy G62.9 ; History of VA (myocardial infarction) I25.2 ; History of aortic aneurysm repair Z98.89 ; Flank pain R10.9 ; History of vitamin D deficiency Z86.39 ; Hypertension I10 and History of high cholesterol Z86.39 IMMUNIZATIONS No Known Immunizations SOCIAL HISTORY Never Assessed REASON FOR VISIT KU appt PLAN OF CARE VITAL SIGNS MEDICATIONS Unknown Medications RESULTS No Results PROCEDURES No Known procedures INSTRUCTIONS MEDICATIONS ADMINISTERED No Known Medications MEDICAL (GENERAL) HISTORY Type Description Date Medical History Diabetes Type II Medical History Heart Stents x2 2010- Bare metal stent t o OM-2013 [facility] Medical History Hypertension Medical History 2010- [facility]- 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 Medical History 4.2cm lymphnode right axilla Medical History 07/2013- 1.7 cm left renal cyst Medical History 2013-ECHO- EF 75%, normal LA pressures w / mild abnormal LV relaxation Medical History History of VA (myocardial infarction) Medical History History of [facility] (myocardial infarction) Surgical History Heart Stents x2 Surgical History Dissecting Aorta Hospitalization History dissecting aneurysm/ [facility] 2010 [facility] History [facility] 2012
--- OUTSIDE RECORDS SUMMARY | 2019-08-27 21:04 | XMS REPORT ---
Author Author Gerry RUSS [facility] Address [address] [place] [address] Care Team Providers Care Child Care Leader Name Role Phone PRICE RUSS Unavailable PROBLEMS Type Condition ICD9-CM Code [id number] Code Onset Dates Condition S tatus SNOMED Code Problem Vitamin D deficiency E55.9 Active 86948528 Problem Seasonal allergic rhinitis due to pollen J30.1 Active 52809057 Problem CAD (coronary artery disease) I25.10 Active 52755266 Problem Hypertension I10 Active 9362567 3 Problem Neuropathy G62.9 Active 856748938 Problem Type 2 diabetes mellitus wit h other specified complication, without long-term current use of insulin E11.69 Active 92278610 Problem Dyslipidemia (high LDL; low HDL) E78.5 Active 867194319 Problem Lumbosacral radiculopathy due to osteoarthritis of spine M47.27 Active 1169658 Problem Gastroesophageal reflux disease with esophagitis K 21.0 Active 954556910 Problem Body mass index (BMI) of 38.0-38.9 in adult Z68.38 Active 907540831 Problem Morbid (severe) obesity due to excess calories E66 .01 Active 221681067 ALLERGIES No Information ENCOUNTERS Encounter Location Date Diagnosis [facility] [address] [facility] [id number] [address] [place] [phone] May, [facility] [address] [place] [id number] [address] [place] [address] May, Hypertension I10 [facility] [address] [place] [id number] [address] [place] [address] May, Lumbosacral radiculopathy du e to osteoarthritis of spine M47.27 [facility] [address] [facility] [id number] [address] [place] [address] Apr, Lumbosacral radiculopathy du e to osteoarthritis of spine M47.27 ; Right anterior shoulder pain M25.511 and Seasonal allergic rhinitis due to pollen J30.1 [place] [address] [address] [place] [id number] [address] [place] [address] Apr, Right medial knee pain M25.5 61 [place] [address] [address] [facility] [id number] [address] [place] [address] Mar, [place] [address] [place] [id number] [place] [address] Mar, Right medial knee pain M25.5 61 [place] [address] [place] [id number] [place] [phone] Feb, Right medial knee pain M25.5 61 [place] [address] [place] [id number] [place] [phone] Feb, Hypertension I10 ; Type 2 di [...] Transient visual loss of both eyes H53.123 [place] [id number] [place] [address] Jan, Right medial knee pain M25.5 61 [facility] [address] [facility] [id number] [address] [place] [address] Jan, [place] [address] [place] [id number] [address] [place] [address] Dec, [facility] [address] [facility] [id number] [address] [place] [phone] 15 Dec, 2017 Acute maxillary sinusitis, r ecurrence not specified J01.00 [place] [address] [place] [id number] [address] [place] [address] Dec, [facility] [address] [id number] [address] [place] [address] Dec, Right medial knee pain M25.5 61 [facility] [address] [id number] [address] [place] [address] November, [facility] [address] [id number] [address] [place] [address] November, Right medial knee pain M25.5 61 [facility] [address] [id number] [address] [place] [address] Oct, Right medial knee pain M25.5 61 [place] [address] [id number] [address] [place] [address] Sep, Type 2 diabetes mellitus wit hout [...] 38.0-38.9 in adult Z68.38 and Neuropathy G62.9 [place] [address] [id number] [address] [place] [address] Aug, Right medial knee pain M25.5 61 [facility] [address] [id number] [address] [place] [address] Aug, Controlled substance agreeme nt signed Z79.899 [place] [address] [id number] [address] [place] [address] Jul, Right medial knee pain M25.5 61 [facility] [address] [id number] [address] [place] [address] Jun, Right medial knee pain M25.5 61 [facility] [address] [id number] [address] [place] [address] May, Lumbosacral radiculopathy du e to osteoarthritis of spine M47.27 and Chondromalacia, right knee M94.261 [place] [address] [address] May, Right medial knee pain M25.5 61 and Seasonal allergic rhinitis due to pollen J30.1 [place] [address] [address] Apr, Right medial knee pain M25.5 61 and Gastroesophageal reflux disease with esophagitis K21.[address] [address] Apr, Type 2 diabetes mellitus wit hout complication E11.9 ; Neuropathy G62.9 ; Hypertension I10 ; Vitamin D deficiency E55.9 ; Hypertriglyceridemia E78.1 ; Gastroesophageal reflux disease with esophagitis K21.0 ; CAD (coronary artery disease) I25.10 and Right medial knee pain M25.561 [place] [address] [address] Mar, Right medial knee pain M25.5 61 and Type 2 diabetes mellitus without complication E11.9 [place] [address] [address] Feb, Chondromalacia, right knee M 94.261 and Lumbosacral radiculopathy due to osteoarthritis of spine M47.27 [place] [address] [address] Feb, Parotitis K11.20 [place] [address] [address] Feb, Type 2 diabetes mellitus wit hout complication E11.9 ; Neuropathy G62.9 ; Hypertension I10 ; Vitamin D deficiency E55.9 ; Hyperlipidemia, unspecified hyperlipidemia type E78.5 ; Morbid obesity due to excess calories E66.01 ; CAD (coronary artery disease) I25.10 ; Gastroesophageal reflux disease with esophagitis K21.0 ; Lymphadenopathy, periauricular R59.0 ; Right medial knee pain M25.561 and Parotitis K11.20 [facility] [address] [facility] [id number] [address] [place] [address] Jan, [facility] [address] [id number] [address] [place] [id number] Jan, Dental examination Z01.20 an d Dental caries K02.9 [facility] [address] [facility] [id number] [address] [place] [address] Jan, Vitamin D deficiency E55.9 [facility] [address] [facility] [id number] [address] [place] [address] Jan, Right medial knee pain M25.5 61 [place] [address] [place] [id number] [place] [address] Jan, Type 2 diabetes mellitus wit hout complication E11.9 ; History of [place] (myocardial infarction) I25.2 ; Hypertension I10 ; Gastroesophageal reflux disease with esophagitis K21.0 ; Seasonal allergic rhinitis due to pollen J30.1 and Right medial knee pain M25.561 [facility] [address] [address] Dec, Seasonal allergic rhinitis d ue to pollen J30.1 [place] [address] [place] [id number] [address] [place] [address] November, Right medial knee pain M25.5 61 [facility] [address] [place] [address] November, Other chest pain R07.89 ; CA D (coronary artery disease) I25.10 ; Hypertension I10 and Hyperlipidemia, unspecified hyperlipidemia type E78.5 [place] [address] [place] [id number] [address] [place] [address] November, Hypertension I10 [place] [address] [place] [id number] [address] [place] [address] Oct, Hypertriglyceridemia E78.1 [place] [address] [place] [id number] [address] [place] [address] Oct, Type 2 diabetes mellitus wit hout complication E11.9 ; Neuropathy G62.9 ; History of [place] (myocardial infarction) I25.2 ; Hypertension I10 ; Vitamin D deficiency E55.9 ; Hypertriglyceridemia E78.1 ; Right medial knee pain M25.561 ; Gastroesophageal reflux disease with esophagitis K21.0 and Nausea R11.0 [place] [address] [address] Sep, [facility] [address] [id number] Jul, Dental caries K02.9 and [place] al examination Z01.20 [facility] [address] [id number] Jul, [place] [address] [address] Jun, [facility] [address] [id number] Jun, Dental examination Z01.20 [place] [address] [address] Jun, [place] [address] [address] Jun, [place] [address] [address] Jun, Right medial knee pain M25.5 61 ; Acute non-recurrent maxillary sinusitis J01.00 and Hypertension I10 [place] [address] [address] Apr, Type 2 diabetes mellitus wit hout complication E11.9 ; Neuropathy G62.9 ; Hypertension I10 ; Hypertriglyceridemia E78.1 ; Right medial knee pain M25.561 ; Morbid obesity due to excess calories E66.01 ; CAD (coronary artery disease) I25.10 ; Seasonal allergic rhinitis due to pollen J30.1 and Acute non- recurrent frontal sinusitis J01.10 [place] [address] [address] Jan, Type 2 diabetes mellitus wit hout complication E11.9 ; Neuropathy G62.9 ; History of [place] (myocardial infarction) I25.2 ; Hypertension I10 ; Vitamin D deficiency E55.9 ; Hypertriglyceridemia E78.1 ; Right medial knee pain M25.561 and Morbid obesity due to excess calories E66.01 [place] [address] [address] November, [place] [address] [address] November, Type 2 diabetes mellitus wit hout complication E11.9 ; General medical exam Z00.00 ; Neuropathy G62.9 ; History of [place] (myocardial infarction) I25.2 ; History of aortic aneurysm repair Z98.89 ; History of vitamin D deficiency Z86.39 ; Hypertension I10 and History of high cholesterol Z86.39 [place] [address] [address] Sep, Diabetes mellitus E11.9 ; Ne uropathy G62.9 ; Hypertension I10 ; CAD (coronary artery disease) I25.10 and Hypertriglyceridemia E78.1 [place] [address] [address] Sep, [place] [address] [address] Aug, [place] [address] [address] Jun, [address] [address] Jun, Type 2 diabetes mellitus wit hout complication E11.9 ; General medical exam Z00.00 ; Neuropathy G62.9 ; History of [place] (myocardial infarction) I25.2 ; History of aortic aneurysm repair Z98.89 ; Flank pain R10.9 ; History of vitamin D deficiency Z86.39 ; Hypertension I10 and History of high cholesterol Z86.39 IMMUNIZATIONS No Known Immunizations SOCIAL HISTORY Never Assessed REASON FOR VISIT Controlled 05/16 PLAN OF CARE VITAL SIGNS MEDICATIONS Medication Instructions Dosage Frequency Start Date End Date Duration S maryjane Hydrocodone-Acetaminophen 7.5-325 MG Orally every 6 hrs 1 tablet as needed 6h May, Active RESULTS No Results PROCEDURES No Known procedures INSTRUCTIONS MEDICATIONS ADMINISTERED No Known Medications MEDICAL (GENERAL) HISTORY Type Description Date Medical History Diabetes Type II Medical History Heart Stents x2 2010- Bare metal stent t o OM-2013 [facility] Medical History Hypertension Medical History 2010- [facility]- dissection o f descending thoracic [...]
--- OUTSIDE RECORDS SUMMARY | 2019-08-27 21:04 | XMS REPORT ---
Author Author Gerry SALINAS Organization [facility] Address [address] [place] [address] Care Team Providers Care Project Coordinator Name Role Phone RITA LING Unavailable PROBLEMS Type Condition ICD9-CM Code [id number] Code Onset Dates Condition S tatus SNOMED Code Problem Vitamin D deficiency E55.9 Active 49131049 Problem Seasonal allergic rhinitis due to pollen J30.1 Active 28425906 Problem CAD (coronary artery disease) I25.10 Active 21614761 Problem Hypertension I10 Active 1546983 3 Problem Neuropathy G62.9 Active 730682812 Problem Type 2 diabetes mellitus wit h other specified complication, without long-term current use of insulin E11.69 Active 89803282 Problem Dyslipidemia (high LDL; low HDL) E78.5 Active 263001089 Problem Lumbosacral radiculopathy due to osteoarthritis of spine M47.27 Active 6689437 Problem Gastroesophageal reflux disease with esophagitis K 21.0 Active 015733046 Problem Body mass index (BMI) of 38.0-38.9 in adult Z68.38 Active 517416033 Problem Morbid (severe) obesity due to excess calories E66 .01 Active 882289277 ALLERGIES No Information ENCOUNTERS Encounter Location Date Diagnosis [facility] [address] [facility] [id number] [address] [place] [address] Mar, Right medial knee pain M25.[address] [facility] [address] [facility] [id number] [address] [place] [phone] Feb, Right medial knee pain M25.5 [address] [place] [address] [address] [facility] [id number] [address] [place] [address] Feb, Hypertension I10 ; Type 2 di [...] Transient visual loss of both eyes H53.123 [facility] [address] [id number] [address] [place] [address] 09 Jan, 2018 Right medial knee pain M25.[address] [facility] [address] [id number] [address] [place] [phone] 09 Jan, 2018 [facility] [address] [id number] [address] [place] [phone] 19 Dec, 2017 [facility] [address] [facility] [id number] [address] [place] [address] Dec, Acute maxillary sinusitis, r ecurrence not specified J01.00 [facility] [address] [id number] [address] [place] [address] Dec, [facility] [address] [id number] [address] [place] [phone] Dec, Right medial knee pain M25.5 [address] [place] [address] [address] [facility] [id number] [address] [place] [phone] November, [facility] [address] [facility] [id number] [address] [place] [address] November, Right medial knee pain M25.[address] [facility] [address] [facility] [id number] [address] [place] [address] Oct, Right medial knee pain M25.5 [address] [place] [address] [address] [facility] [id number] [address] [place] [address] Sep, Type 2 diabetes mellitus wit hout [...] 38.0-38.9 in adult Z68.38 and Neuropathy G62.9 [place] [address] [address] [facility] [id number] [address] [place] [phone] Aug, Right medial knee pain M25.5 [address] [place] [address] [address] [place] [id number] [place] [address] Aug, Controlled substance agreeme nt signed Z79.899 [place] [address] [address] [facility] [id number] [address] [place] [address] Jul, Right medial knee pain M25.5 [address] [place] [address] [address] [place] [id number] [place] [address] Jun, Right medial knee pain M25.5 61 [place] [address] [address] [place] [id number] [place] [address] May, Lumbosacral radiculopathy du e to osteoarthritis of spine M47.27 and Chondromalacia, right knee M94.261 [place] [address] [address] May, Right medial knee pain M25.5 61 and Seasonal allergic rhinitis due to pollen J30.1 [place] [address] [address] [place] [id number] [address] [place] [phone] Apr, Right medial knee pain M25.5 61 and Gastroesophageal reflux disease with esophagitis K21.0 [place] [address] [address] [place] [id number] [address] [place] [address] Apr, Type 2 diabetes mellitus wit hout complication E11.9 ; Neuropathy G62.9 ; Hypertension I10 ; Vitamin D deficiency E55.9 ; Hypertriglyceridemia E78.1 ; Gastroesophageal reflux disease with esophagitis K21.0 ; CAD (coronary artery disease) I25.10 and Right medial knee pain M25.561 [place] [address] [place] [id number] [address] [place] [address] Mar, Right medial knee pain M25.5 61 and Type 2 diabetes mellitus without complication E11.9 [place] [address] [place] [address] Feb, Chondromalacia, right knee M 94.261 and Lumbosacral radiculopathy due to osteoarthritis of spine M47.27 [place] [address] [address] [place] [id number] [address] [place] [address] Feb, Parotitis K11.20 [place] [address] [address] [place] [id number] [address] [place] [address] Feb, Type 2 diabetes mellitus wit hout complication E11.9 ; Neuropathy G62.9 ; Hypertension I10 ; Vitamin D deficiency E55.9 ; Hyperlipidemia, unspecified hyperlipidemia type E78.5 ; Morbid obesity due to excess calories E66.01 ; CAD (coronary artery disease) I25.10 ; Gastroesophageal reflux disease with esophagitis K21.0 ; Lymphadenopathy, periauricular R59.0 ; Right medial knee pain M25.561 and Parotitis K11.20 [place] [address] [place] [id number] [address] [place] [phone] Jan, [facility] [address] [facility] [id number] [address] [place] [id number] Jan, Dental examination Z01.20 an d Dental caries K02.9 [place] [address] [address] [place] [id number] [address] [place] [address] Jan, Vitamin D deficiency E55.9 [place] [address] [place] [id number] [address] [place] [address] Jan, Right medial knee pain M25.5 61 [place] [address] [address] [place] [id number] [address] [place] [address] Jan, Type 2 diabetes mellitus wit hout complication E11.9 ; History of [place] (myocardial infarction) I25.2 ; Hypertension I10 ; Gastroesophageal reflux disease with esophagitis K21.0 ; Seasonal allergic rhinitis due to pollen J30.1 and Right medial knee pain M25.561 [place] [address] [address] Dec, Seasonal allergic rhinitis d ue to pollen J30.1 [place] [address] [address] November, Right medial knee pain M25.5 [address] [place] [address] [address] November, Other chest pain R07.89 ; CA D (coronary artery disease) I25.10 ; Hypertension I10 and Hyperlipidemia, unspecified hyperlipidemia type E78.5 [place] [address] [address] November, Hypertension I10 [place] [address] [address] Oct, Hypertriglyceridemia E78.1 [place] [address] [address] Oct, Type 2 diabetes mellitus wit hout complication E11.9 ; Neuropathy G62.9 ; History of [place] (myocardial infarction) I25.2 ; Hypertension I10 ; Vitamin D deficiency E55.9 ; Hypertriglyceridemia E78.1 ; Right medial knee pain M25.561 ; Gastroesophageal reflux disease with esophagitis K21.0 and Nausea R11.0 [place] [address] [address] Sep, [facility] [address] [id number] Jul, Dental caries K02.9 and [place] al examination Z01.20 [facility] [address] [id number] Jul, [facility] [address] [address] Jun, [facility] [address] [id number] Jun, 2016 Dental examination Z01.20 [place] [id number] [place] [phone] Jun, [place] [address] [place] [phone] Jun, [place] [address] [place] [id number] [address] [place] [phone] Jun, Right medial knee pain M25.5 61 ; Acute non-recurrent maxillary sinusitis J01.00 and Hypertension I10 [place] [address] [address] [place] [id number] [address] [place] [phone] 04 Apr, 2016 Type 2 diabetes mellitus wit hout complication E11.9 ; Neuropathy G62.9 ; Hypertension I10 ; Hypertriglyceridemia E78.1 ; Right medial knee pain M25.561 ; Morbid obesity due to excess calories E66.01 ; CAD (coronary artery disease) I25.10 ; Seasonal allergic rhinitis due to pollen J30.1 and Acute non- recurrent frontal sinusitis J01.10 [place] [address] [address] [place] [id number] [address] [place] [phone] 14 Jan, 2016 Type 2 diabetes mellitus wit hout complication E11.9 ; Neuropathy G62.9 ; History of [place] (myocardial infarction) I25.2 ; Hypertension I10 ; Vitamin D deficiency E55.9 ; Hypertriglyceridemia E78.1 ; Right medial knee pain M25.561 and Morbid obesity due to excess calories E66.01 [place] [address] [place] [address] November, [place] [address] [place] [phone] November, Type 2 diabetes mellitus wit hout complication E11.9 ; General medical exam Z00.00 ; Neuropathy G62.9 ; History of [place] (myocardial infarction) I25.2 ; History of aortic aneurysm repair Z98.89 ; History of vitamin D deficiency Z86.39 ; Hypertension I10 and History of high cholesterol Z86.39 [place] [address] [address] [place] [id number] [address] [place] [address] Sep, Diabetes mellitus E11.9 ; Ne uropathy G62.9 ; Hypertension I10 ; CAD (coronary artery disease) I25.10 [address]1 [facility] [address] [facility] [id number] [address] [place] [phone] Sep, [facility] [address] [facility] [id number] [address] [place] [phone] Aug, [facility] [address] [facility] [id number] [address] [place] [phone] Jun, [facility] [address] [facility] [id number] [address] [place] [phone] Jun, Type 2 diabetes mellitus wit hout complication E11.9 ; General medical exam Z00.00 ; Neuropathy G62.9 ; History of [place] (myocardial infarction) I25.2 ; History of aortic aneurysm repair Z98.89 ; Flank pain R10.9 ; History of vitamin D deficiency Z86.39 ; Hypertension I10 and History of high cholesterol Z86.39 IMMUNIZATIONS No Known Immunizations SOCIAL HISTORY Never Assessed REASON FOR VISIT Hydrocodone 02/14 PLAN OF CARE VITAL SIGNS MEDICATIONS Medication Instructions Dosage Frequency Start Date End Date Duration S maryjane Hydrocodone-Acetaminophen 7.5-325 MG Orally every 6 hrs 1 tablet as needed 6h Feb, 28 days Active RESULTS No Results PROCEDURES No Known procedures INSTRUCTIONS MEDICATIONS ADMINISTERED No Known Medications MEDICAL (GENERAL) HISTORY Type Description Date Medical History Diabetes Type II Medical History Heart Stents x2 2010- Bare metal stent t o OM-2013 [facility] Medical History Hypertension Medical History 2010- [facility]- 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 Medical History 4.2cm lymphnode right axilla Medical History 07/2013- 1.7 cm left renal cyst Medical History 2013-ECHO- EF 75%, normal LA pressures w / mild abnormal LV relaxation Medical History History of [place] (myocardial infarction) Medical History History of [place] (myocardial infarction) Surgical History Heart Stents x2 Surgical History Dissecting Aorta Hospitalization History dissecting aneurysm/ [place] 2010 Hospitalization History [place] 2012
--- OUTSIDE RECORDS SUMMARY | 2019-08-27 21:05 | XMS REPORT ---
Author Author Gerry SALINAS Organization [facility] [place] Address [address] [place] [address] Care Team Providers Care Plastic Fabricator Name Role Phone RITA LING Unavailable PROBLEMS Type Condition ICD9-CM Code RAB85-NC Code Onset Dates Condition S tatus SNOMED Code Problem Vitamin D deficiency E55.9 Active 10724872 Problem Seasonal allergic rhinitis due to pollen J30.1 Active 44495737 Problem CAD (coronary artery disease) I25.10 Active 56157662 Problem Hypertension I10 Active 7012197 3 Problem Neuropathy G62.9 Active 905855432 Problem Type 2 diabetes mellitus wit h other specified complication, without long-term current use of insulin E11.69 Active 12786190 Problem Dyslipidemia (high LDL; low HDL) E78.5 Active 033918493 Problem Lumbosacral radiculopathy due to osteoarthritis of spine M47.27 Active 5829596 Problem Gastroesophageal reflux disease with esophagitis K 21.0 Active 938707489 Problem Body mass index (BMI) of 38.0-38.9 in adult Z68.38 Active 235564488 Problem Morbid (severe) obesity due to excess calories E66 .01 Active 773711152 ALLERGIES No Information ENCOUNTERS Encounter Location Date Diagnosis [facility] [place] [address] [facility] [id number] [address] [place] [phone] Feb, Right medial knee pain M25.5 61 [facility] [place] [address] [facility] [id number] [address] [place] [phone] Feb, Hypertension I10 ; Type 2 di [...] Transient visual loss of both eyes H53.123 [facility] [place] [address] [id number] [address] [place] [phone] 09 Jan, 2018 Right medial knee pain M25.5 61 [facility] [place] [address] [id number] [address] [place] [phone] 09 Jan, 2018 [facility] [place] [address] [id number] [address] [place] [phone] Dec, [facility] [address] [id number] [address] [place] [id number] 15 Dec, 2017 Acute maxillary sinusitis, r ecurrence not specified J01.00 [facility] [place] [address] [id number] [address] [place] [phone] 15 Dec, 2017 [facility] [place] [address] [id number] [address] [place] [phone] 07 Dec, 2017 Right medial knee pain M25.5 61 [facility] [place] [address] [id number] [address] [place] [phone] November, [facility] [place] [address] [id number] [address] [place] [phone] 02 Nov, 2017 Right medial knee pain M25.5 61 [facility] [place] [address] [id number] [address] [place] [phone] Oct, Right medial knee pain M25.5 61 [facility] [place] [address] [id number] [address] [place] [phone] Sep, Type 2 diabetes mellitus wit hout [...] 38.0-38.9 in adult Z68.38 and Neuropathy G62.9 [place] [address] [address] [place] [id number] [address] [place] [phone] Aug, Right medial knee pain M25.5 61 [place] [address] [address] Aug, Controlled substance agreeme nt signed Z79.899 [place] [address] [address] Jul, Right medial knee pain M25.5 61 [place] [address] [address] Jun, Right medial knee pain M25.5 61 [place] [address] [address] May, Lumbosacral radiculopathy du e to osteoarthritis of spine M47.27 and Chondromalacia, right knee M94.261 [place] [address] [address] May, Right medial knee pain M25.5 61 and Seasonal allergic rhinitis due to pollen J30.1 [place] [address] [address] Apr, Right medial knee pain M25.5 61 and Gastroesophageal reflux disease with esophagitis K21.0 [place] [address] [address] Apr, Type 2 diabetes mellitus wit hout complication E11.9 ; Neuropathy G62.9 ; Hypertension I10 ; Vitamin D deficiency E55.9 ; Hypertriglyceridemia E78.1 ; Gastroesophageal reflux disease with esophagitis K21.0 ; CAD (coronary artery disease) I25.10 and Right medial knee pain M25.561 [place] [address] [address] [place] [id number] [address] [place] [phone] 15 Mar, 2017 Right medial knee pain M25.5 61 and Type 2 diabetes mellitus without complication E11.9 [place] [address] [address] Feb, Chondromalacia, right knee M 94.261 and Lumbosacral radiculopathy due to osteoarthritis of spine M47.27 [place] [address] [address] Feb, Parotitis K11.20 [place] [address] [address] Feb, Type 2 diabetes mellitus wit hout complication E11.9 ; Neuropathy G62.9 ; Hypertension I10 ; Vitamin D deficiency E55.9 ; Hyperlipidemia, unspecified hyperlipidemia type E78.5 ; Morbid obesity due to excess calories E66.01 ; CAD (coronary artery disease) I25.10 ; Gastroesophageal reflux disease with esophagitis K21.0 ; Lymphadenopathy, periauricular R59.0 ; Right medial knee pain M25.561 and Parotitis K11.20 [place] [address] [phone] Jan, [facility] [address] [place] [id number] [place] [id number] Jan, Dental examination Z01.20 an d Dental caries K02.9 [place] [address] [place] [id number] [address] [place] [phone] Jan, Vitamin D deficiency E55.9 [place] [address] [address] Jan, Right medial knee pain M25.5 61 [place] [address] [address] Jan, Type 2 diabetes mellitus wit hout complication E11.9 ; History of [place] (myocardial infarction) I25.2 ; Hypertension I10 ; Gastroesophageal reflux disease with esophagitis K21.0 ; Seasonal allergic rhinitis due to pollen J30.1 and Right medial knee pain M25.561 [place] [address] [address] Dec, Seasonal allergic rhinitis d ue to pollen J30.1 [facility] [place] [address] [address] November, Right medial knee pain M25.5 61 [facility] [place] [address] [address] November, Other chest pain R07.89 ; CA D (coronary artery disease) I25.10 ; Hypertension I10 and Hyperlipidemia, unspecified hyperlipidemia type E78.5 [place] [address] [address] November, Hypertension I10 [place] [address] [address] Oct, Hypertriglyceridemia E78.1 [place] [address] [address] Oct, Type 2 diabetes mellitus wit hout complication E11.9 ; Neuropathy G62.9 ; History of [place] (myocardial infarction) I25.2 ; Hypertension I10 ; Vitamin D deficiency E55.9 ; Hypertriglyceridemia E78.1 ; Right medial knee pain M25.561 ; Gastroesophageal reflux disease with esophagitis K21.0 and Nausea R11.0 [place] [address] [address] Sep, [facility] [address] [id number] Jul, Dental caries K02.9 and [place] al examination Z01.20 [facility] [address] [place] [id number] [place] [id number] Jul, [facility] [place] [address] [address] Jun, [facility] [address] [id number] Jun, Dental examination Z01.20 [place] [address] [address] Jun, [place] [address] [address] Jun, [place] [address] [address] Jun, Right medial knee pain M25.5 61 ; Acute non-recurrent maxillary sinusitis J01.00 and Hypertension I10 [place] [address] [address] Apr, Type 2 diabetes mellitus wit hout complication E11.9 ; Neuropathy G62.9 ; Hypertension I10 ; Hypertriglyceridemia E78.1 ; Right medial knee pain M25.561 ; Morbid obesity due to excess calories E66.01 ; CAD (coronary artery disease) I25.10 ; Seasonal allergic rhinitis due to pollen J30.1 and Acute non- recurrent frontal sinusitis J01.[address] [address] Jan, Type 2 diabetes mellitus wit hout complication E11.9 ; Neuropathy G62.9 ; History of [place] (myocardial infarction) I25.2 ; Hypertension I10 ; Vitamin D deficiency E55.9 ; Hypertriglyceridemia E78.1 ; Right medial knee pain M25.561 and Morbid obesity due to excess calories E66.01 [place] [address] [address] November, [address] [address] November, Type 2 diabetes mellitus wit hout complication E11.9 ; General medical exam Z00.00 ; Neuropathy G62.9 ; History of [place] (myocardial infarction) I25.2 ; History of aortic aneurysm repair Z98.89 ; History of vitamin D deficiency Z86.39 ; Hypertension I10 and History of high cholesterol Z86.39 [place] [address] [address] Sep, Diabetes mellitus E11.9 ; Ne uropathy G62.9 ; Hypertension I10 ; CAD (coronary artery disease) I25.10 and Hypertriglyceridemia E78.1 [facility] [place] [address] [facility] [id number] [address] [place] [phone] Sep, [facility] [place] [address] [facility] [id number] [address] [place] [phone] Aug, [facility] [place] [address] [facility] [id number] [address] [place] [phone] Jun, [facility] [place] [address] [facility] [id number] [address] [place] [phone] Jun, Type 2 diabetes mellitus wit hout complication E11.9 ; General medical exam Z00.00 ; Neuropathy G62.9 ; History of [place] (myocardial infarction) I25.2 ; History of aortic aneurysm repair Z98.89 ; Flank pain R10.9 ; History of vitamin D deficiency Z86.39 ; Hypertension I10 and History of high cholesterol Z86.39 IMMUNIZATIONS No Known Immunizations SOCIAL HISTORY Never Assessed REASON FOR VISIT Controlled Med Refill PLAN OF CARE VITAL SIGNS MEDICATIONS Unknown Medications RESULTS No Results PROCEDURES No Known procedures INSTRUCTIONS MEDICATIONS ADMINISTERED No Known Medications MEDICAL (GENERAL) HISTORY Type Description Date Medical History Diabetes Type II Medical History Heart Stents x2 2010- Bare metal stent t o OM-2013 [facility] Medical History Hypertension Medical History 2010- [facility]- dissection o f descending thoracic aorta w/ [...]
--- OUTSIDE RECORDS SUMMARY | 2019-08-27 21:05 | XMS REPORT ---
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 Name Role Phone RITA LING Unavailable PROBLEMS Type Condition ICD9-CM Code MRM55-FS Code Onset Dates Condition S tatus SNOMED Code Problem Vitamin D deficiency E55.9 Active 80258676 Problem Seasonal allergic rhinitis due to pollen J30.1 Active 37111857 Problem CAD (coronary artery disease) I25.10 Active 15395193 Problem Hypertension I10 Active 9246796 3 Problem Neuropathy G62.9 Active 138661715 Problem Type 2 diabetes mellitus wit h other specified complication, without long-term current use of insulin E11.69 Active 59122547 Problem Dyslipidemia (high LDL; low HDL) E78.5 Active 735426474 Problem Lumbosacral radiculopathy due to osteoarthritis of spine M47.27 Active 0990527 Problem Gastroesophageal reflux disease with esophagitis K 21.0 Active 387287327 Problem Body mass index (BMI) of 38.0-38.9 in adult Z68.38 Active 424441814 Problem Morbid (severe) obesity due to excess calories E66 .01 Active 975270978 ALLERGIES No Information ENCOUNTERS Encounter Location Date Diagnosis [facility] [address] [place] [id number] [address] [place] [phone] Feb, Hypertension I10 ; Type 2 di [...] Transient visual loss of both eyes H53.123 [facility] [address] [facility] [place] [id number] [address] [place] [address] Jan, Right medial knee pain M25.5 61 [facility] [address] [id number] [address] [place] [address] Jan, [facility] [address] [id number] [address] [place] [phone] Dec, [facility] [address] [id number] [address] [place] [phone] Dec, Acute maxillary sinusitis, r ecurrence not specified J01.00 [facility] [address] [id number] [address] [place] [address] Dec, [facility] [address] [id number] [address] [place] [address] Dec, Right medial knee pain M25.5 61 [facility] [address] [id number] [address] [place] [address] November, [facility] [address] [id number] [address] [place] [phone] November, Right medial knee pain M25.5 61 [facility] [address] [id number] [address] [place] [address] Oct, Right medial knee pain M25.5 61 [facility] [address] [id number] [address] [place] [address] Sep, Type 2 diabetes mellitus wit hout [...] 38.0-38.9 in adult Z68.38 and Neuropathy G62.9 [facility] [address] [id number] [address] [place] [phone] 28 Aug, 2017 Right medial knee pain M25.5 61 [place] [address] [address] [facility] [place] [id number] [address] [place] [phone] Aug, Controlled substance agreeme nt signed Z79.899 [place] [address] [address] [facility] [place] [id number] [address] [place] [address] Jul, Right medial knee pain M25.5 61 [place] [address] [address] [facility] [place] [id number] [address] [place] [phone] Jun, Right medial knee pain M25.5 61 [place] [address] [address] [facility] [place] [id number] [address] [place] [address] May, Lumbosacral radiculopathy du e to osteoarthritis of spine M47.27 and Chondromalacia, right knee M94.261 [place] [address] [address] [facility] [place] [id number] [address] [place] [address] May, Right medial knee pain M25.5 61 and Seasonal allergic rhinitis due to pollen J30.1 [place] [address] [address] [facility] [place] [id number] [address] [place] [address] Apr, Right medial knee pain M25.5 61 and Gastroesophageal reflux disease with esophagitis K21.0 [place] [address] [address] [facility] [place] [id number] [address] [place] [address] Apr, Type 2 diabetes mellitus wit hout complication E11.9 ; Neuropathy G62.9 ; Hypertension I10 ; Vitamin D deficiency E55.9 ; Hypertriglyceridemia E78.1 ; Gastroesophageal reflux disease with esophagitis K21.0 ; CAD (coronary artery disease) I25.10 and Right medial knee pain M25.561 [place] [address] [address] [facility] [place] [id number] [address] [place] [address] Mar, Right medial knee pain M25.5 61 and Type 2 diabetes mellitus without complication E11.9 [place] [address] [address] [facility] [place] [id number] [address] [place] [address] Feb, Chondromalacia, right knee M 94.261 and Lumbosacral radiculopathy due to osteoarthritis of spine M47.27 [place] [address] [address] [place] [id number] [address] [place] [address] Feb, Parotitis K11.20 [place] [address] [address] Feb, Type 2 diabetes mellitus wit hout complication E11.9 ; Neuropathy G62.9 ; Hypertension I10 ; Vitamin D deficiency E55.9 ; Hyperlipidemia, unspecified hyperlipidemia type E78.5 ; Morbid obesity due to excess calories E66.01 ; CAD (coronary artery disease) I25.10 ; Gastroesophageal reflux disease with esophagitis K21.0 ; Lymphadenopathy, periauricular R59.0 ; Right medial knee pain M25.561 and Parotitis K11.20 [place] [address] [address] Jan, [facility] [address] [place] [id number] [place] [phone] Jan, Dental examination Z01.20 an d Dental caries K02.9 [place] [address] [address] Jan, Vitamin D deficiency E55.9 [place] [address] [address] Jan, Right medial knee pain M25.5 61 [place] [address] [address] Jan, Type 2 diabetes mellitus wit hout complication E11.9 ; History of [place] (myocardial infarction) I25.2 ; Hypertension I10 ; Gastroesophageal reflux disease with esophagitis K21.0 ; Seasonal allergic rhinitis due to pollen J30.1 and Right medial knee pain M25.561 [place] [address] [address] Dec, Seasonal allergic rhinitis d ue to pollen J30.1 [place] [address] [address] November, Right medial knee pain M25.5 61 [facility] [address] [facility] [place] [id number] [place] [address] November, Other chest pain R07.89 ; CA D (coronary artery disease) I25.10 ; Hypertension I10 and Hyperlipidemia, unspecified hyperlipidemia type E78.5 [place] [id number] [facility] [place] [id number] [place] [phone] November, Hypertension I10 [place] [address] [place] [id number] [place] [address] Oct, Hypertriglyceridemia E78.1 [place] [address] [address] Oct, Type 2 diabetes mellitus wit hout complication E11.9 ; Neuropathy G62.9 ; History of [place] (myocardial infarction) I25.2 ; Hypertension I10 ; Vitamin D deficiency E55.9 ; Hypertriglyceridemia E78.1 ; Right medial knee pain M25.561 ; Gastroesophageal reflux disease with esophagitis K21.0 and Nausea R11.0 [facility] [address] [place] [id number] [address] [place] [address] Sep, [facility] [address] [id number] Jul, Dental caries K02.9 and Tra[place] al examination Z01.20 [facility] [id number] [place] [address] [id number] Jul, [facility] [address] [place] [id number] [place] [address] Jun, [facility] [id number] [place] [id number] Jun, Dental examination Z01.20 [facility] [address] [facility] [id number] [address] [place] [address] Jun, [facility] [address] [place] [id number] [address] [place] [address] Jun, [place] [address] [address] Jun, Right medial knee pain M25.5 61 ; Acute non-recurrent maxillary sinusitis J01.00 and Hypertension I10 [place] [address] [address] 04 Apr, 2016 Type 2 diabetes mellitus wit hout complication E11.9 ; Neuropathy G62.9 ; Hypertension I10 ; Hypertriglyceridemia E78.1 ; Right medial knee pain M25.561 ; Morbid obesity due to excess calories E66.01 ; CAD (coronary artery disease) I25.10 ; Seasonal allergic rhinitis due to pollen J30.1 and Acute non- recurrent frontal sinusitis J01.10 [place] [address] [address] Jan, Type 2 diabetes mellitus wit hout complication E11.9 ; Neuropathy G62.9 ; History of [place] (myocardial infarction) I25.2 ; Hypertension I10 ; Vitamin D deficiency E55.9 ; Hypertriglyceridemia E78.1 ; Right medial knee pain M25.561 and Morbid obesity due to excess calories E66.01 [place] [address] [address] November, [place] [address] [address] November, Type 2 diabetes mellitus wit hout complication E11.9 ; General medical exam Z00.00 ; Neuropathy G62.9 ; History of [place] (myocardial infarction) I25.2 ; History of aortic aneurysm repair Z98.89 ; History of vitamin D deficiency Z86.39 ; Hypertension I10 and History of high cholesterol Z86.39 [place] [address] [address] Sep, Diabetes mellitus E11.9 ; Ne uropathy G62.9 ; Hypertension I10 ; CAD (coronary artery disease) I25.10 and Hypertriglyceridemia E78.1 [place] [address] [address] Sep, [facility] [address] [facility] [place] [id number] [address] [place] [address] Aug, [facility] [address] [facility] [place] [id number] [address] [place] [phone] Jun, [facility] [address] [facility] [place] [id number] [address] [place] [address] Jun, Type 2 diabetes mellitus wit hout complication E11.9 ; General medical exam Z00.00 ; Neuropathy G62.9 ; History of [place] (myocardial infarction) I25.2 ; History of aortic aneurysm repair Z98.89 ; Flank pain R10.9 ; History of vitamin D deficiency Z86.39 ; Hypertension I10 and History of high cholesterol Z86.39 IMMUNIZATIONS No Known Immunizations SOCIAL HISTORY Never Assessed REASON FOR VISIT Needs random drug screen at next vsi[facility] PLAN OF CARE VITAL SIGNS MEDICATIONS No Known Medications RESULTS No Results PROCEDURES No Known procedures INSTRUCTIONS MEDICATIONS ADMINISTERED No Known Medications MEDICAL (GENERAL) HISTORY Type Description Date Medical History Diabetes Type II Medical History Heart Stents x2 2010- Bare metal stent t o OM-2013 [facility] Medical History Hypertension Medical History 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
--- OUTSIDE RECORDS SUMMARY | 2019-08-27 21:05 | XMS REPORT ---
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 Name Role Phone RITA LING Unavailable PROBLEMS Type Condition ICD9-CM Code [id number] Code Onset Dates Condition S tatus SNOMED Code Problem Vitamin D deficiency E55.9 Active 80076967 Problem Seasonal allergic rhinitis due to pollen J30.1 Active 14272120 Problem CAD (coronary artery disease) I25.10 Active 54218015 Problem Hypertension I10 Active 6927686 3 Problem Neuropathy G62.9 Active 263696078 Problem Type 2 diabetes mellitus wit h other specified complication, without long-term current use of insulin E11.69 Active 03818010 Problem Dyslipidemia (high LDL; low HDL) E78.5 Active 056803992 Problem Lumbosacral radiculopathy due to osteoarthritis of spine M47.27 Active 3791529 Problem Gastroesophageal reflux disease with esophagitis K 21.0 Active 047473748 Problem Body mass index (BMI) of 38.0-38.9 in adult Z68.38 Active 960351733 Problem Morbid (severe) obesity due to excess calories E66 .01 Active 289588085 ALLERGIES No Information ENCOUNTERS Encounter Location Date Diagnosis [facility] [address] [facility] [id number] [address] [place] [phone] Feb, Right medial knee pain M25.5 61 [facility] [address] [facility] [id number] [address] [place] [phone] Feb, Hypertension I10 ; Type 2 di [...] H53.123 [facility] [address] [id number] [address] [place] [phone] 09 Jan, 2018 Right medial knee pain M25.5 61 [facility] [address] [id number] [address] [place] [id number] 09 Jan, 2018 [facility] [address] [id number] [address] [place] [phone] Dec, [facility]ALK IN [facility] [address] [id number] [address] [place] [phone] 15 Dec, 2017 Acute maxillary sinusitis, r ecurrence not specified J01.00 [facility] [address] [id number] [address] [place] [id number] 15 Dec, 2017 [facility] [address] [id number] [address] [place] [phone] 07 Dec, 2017 Right medial knee pain M25.5 61 [facility] [address] [id number] [address] [place] [phone] November, [facility] [address] [id number] [address] [place] [phone] 02 Nov, 2017 Right medial knee pain M25.5 61 [facility] [address] [id number] [address] [place] [phone] Oct, Right medial knee pain M25.5 61 [facility] [address] [id number] [address] [place] [phone] Sep, Type 2 diabetes mellitus wit hout [...] 38.0-38.9 in adult Z68.38 and Neuropathy G62.9 [place] [address] [place] [id number] [address] [place] [phone] Aug, Right medial knee pain M25.5 61 [place] [address] [address] Aug, Controlled substance agreeme nt signed Z79.899 [place] [address] [address] Jul, Right medial knee pain M25.5 61 [place] [address] [address] Jun, Right medial knee pain M25.5 61 [place] [address] [address] May, Lumbosacral radiculopathy du e to osteoarthritis of spine M47.27 and Chondromalacia, right knee M94.261 [place] [address] [address] May, Right medial knee pain M25.5 61 and Seasonal allergic rhinitis due to pollen J30.1 [place] [address] [address] Apr, Right medial knee pain M25.5 61 and Gastroesophageal reflux disease with esophagitis K21.0 [place] [address] [address] Apr, Type 2 diabetes mellitus wit hout complication E11.9 ; Neuropathy G62.9 ; Hypertension I10 ; Vitamin D deficiency E55.9 ; Hypertriglyceridemia E78.1 ; Gastroesophageal reflux disease with esophagitis K21.0 ; CAD (coronary artery disease) I25.10 and Right medial knee pain M25.561 [place] [address] [address] [place] [id number] [address] [place] [phone] 15 Mar, 2017 Right medial knee pain M25.5 61 and Type 2 diabetes mellitus without complication E11.9 [place] [address] [address] Feb, Chondromalacia, right knee M 94.261 and Lumbosacral radiculopathy due to osteoarthritis of spine M47.27 [place] [address] [address] Feb, Parotitis K11.20 [place] [address] [address] Feb, Type 2 diabetes mellitus wit hout complication E11.9 ; Neuropathy G62.9 ; Hypertension I10 ; Vitamin D deficiency E55.9 ; Hyperlipidemia, unspecified hyperlipidemia type E78.5 ; Morbid obesity due to excess calories E66.01 ; CAD (coronary artery disease) I25.10 ; Gastroesophageal reflux disease with esophagitis K21.0 ; Lymphadenopathy, periauricular R59.0 ; Right medial knee pain M25.561 and Parotitis K11.20 [place] [address] [address] Jan, [facility] [address] [place] [id number] [place] [id number] Jan, Dental examination Z01.20 an d Dental caries K02.9 [place] [address] [address] [place] [id number] [address] [place] [phone] Jan, Vitamin D deficiency E55.9 [place] [address] [address] Jan, Right medial knee pain M25.5 61 [place] [address] [address] Jan, Type 2 diabetes mellitus wit hout complication E11.9 ; History of ID (myocardial infarction) I25.2 ; Hypertension I10 ; Gastroesophageal reflux disease with esophagitis K21.0 ; Seasonal allergic rhinitis due to pollen J30.1 and Right medial knee pain M25.561 [place] [address] [address] Dec, Seasonal allergic rhinitis d ue to pollen J30.1 [facility] [address] [address] November, Right medial knee pain M25.5 61 [facility] [address] [address] November, Other chest pain R07.89 ; CA D (coronary artery disease) I25.10 ; Hypertension I10 and Hyperlipidemia, unspecified hyperlipidemia type E78.5 [place] [address] [address] November, Hypertension I10 [place] [address] [address] Oct, Hypertriglyceridemia E78.1 [place] [address] [address] Oct, Type 2 diabetes mellitus wit hout complication E11.9 ; Neuropathy G62.9 ; History of ID (myocardial infarction) I25.2 ; Hypertension I10 ; Vitamin D deficiency E55.9 ; Hypertriglyceridemia E78.1 ; Right medial knee pain M25.561 ; Gastroesophageal reflux disease with esophagitis K21.0 and Nausea R11.0 [place] [address] [address] Sep, [facility] [address] [id number] Jul, Dental caries K02.9 and Pope al examination Z01.20 [facility] [address] [place] [id number] [place] [id number] Jul, [facility] [address] [address] Jun, [facility] [address] [id number] Jun, Dental examination Z01.20 [place] [address] [address] Jun, [place] [address] [address] Jun, [place] [address] [address] Jun, Right medial knee pain M25.5 61 ; Acute non-recurrent maxillary sinusitis J01.00 and Hypertension I10 [place] [address] [address] Apr, Type 2 diabetes mellitus wit hout complication E11.9 ; Neuropathy G62.9 ; Hypertension I10 ; Hypertriglyceridemia E78.1 ; Right medial knee pain M25.561 ; Morbid obesity due to excess calories E66.01 ; CAD (coronary artery disease) I25.10 ; Seasonal allergic rhinitis due to pollen J30.1 and Acute non- recurrent frontal sinusitis J01.[address] [address] Jan, Type 2 diabetes mellitus wit hout complication E11.9 ; Neuropathy G62.9 ; History of ID (myocardial infarction) I25.2 ; Hypertension I10 ; Vitamin D deficiency E55.9 ; Hypertriglyceridemia E78.1 ; Right medial knee pain M25.561 and Morbid obesity due to excess calories E66.01 [place] [address] [address] November, [address] [address] November, Type 2 diabetes mellitus wit hout complication E11.9 ; General medical exam Z00.00 ; Neuropathy G62.9 ; History of ID (myocardial infarction) I25.2 ; History of aortic aneurysm repair Z98.89 ; History of vitamin D deficiency Z86.39 ; Hypertension I10 and History of high cholesterol Z86.39 [place] [address] [address] Sep, Diabetes mellitus E11.9 ; Ne uropathy G62.9 ; Hypertension I10 ; CAD (coronary artery disease) I25.10 and Hypertriglyceridemia E78.1 [facility] [address] [facility] [id number] [address] [place] [phone] Sep, [facility] [address] [facility] [id number] [address] [place] [phone] Aug, [facility] [address] [facility] [id number] [address] [place] [phone] Jun, [facility] [address] [facility] [id number] [address] [place] [phone] Jun, Type 2 diabetes mellitus wit hout complication E11.9 ; General medical exam Z00.00 ; Neuropathy G62.9 ; History of ID (myocardial infarction) I25.2 ; History of aortic aneurysm repair Z98.89 ; Flank pain R10.9 ; History of vitamin D deficiency Z86.39 ; Hypertension I10 and History of high cholesterol Z86.39 IMMUNIZATIONS No Known Immunizations SOCIAL HISTORY Never Assessed REASON FOR VISIT Controlled Med Refill PLAN OF CARE VITAL SIGNS MEDICATIONS Medication Instructions Dosage Frequency Start Date End Date Duration S tatus Hydrocodone-Acetaminophen 7.5-325 MG Orally every 6 hrs 1 tablet as needed 6h Jan, 28 days Active RESULTS No Results PROCEDURES No Known procedures INSTRUCTIONS MEDICATIONS ADMINISTERED No Known Medications MEDICAL (GENERAL) HISTORY Type Description Date Medical History Diabetes Type II Medical History Heart Stents x2 2010- Bare metal stent t o OM-2013 [facility] Medical History Hypertension Medical History 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 Medical History 4.2cm lymphnode right axilla Medical History 07/2013- 1.7 cm left renal cyst Medical History 2013-[facility]- EF 75%, normal LA pressures w / mild abnormal LV relaxation Medical History History of ID (myocardial infarction) Medical History History of ID (myocardial infarction) Surgical History Heart Stents x2 Surgical History Dissecting Aorta Hospitalization History dissecting aneurysm/ ID 2010 Hospitalization History ID [id number]
--- OUTSIDE RECORDS SUMMARY | 2019-08-27 21:05 | XMS REPORT ---
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 Name Role Phone RITA LING Unavailable PROBLEMS Type Condition ICD9-CM Code TNF44-RG Code Onset Dates Condition S tatus SNOMED Code Problem Vitamin D deficiency E55.9 Active 40876801 Problem Seasonal allergic rhinitis due to pollen J30.1 Active 96716147 Problem CAD (coronary artery disease) I25.10 Active 95052945 Problem Hypertension I10 Active 2733774 3 Problem Neuropathy G62.9 Active 500227263 Problem Type 2 diabetes mellitus wit h other specified complication, without long-term current use of insulin E11.69 Active 83813040 Problem Dyslipidemia (high LDL; low HDL) E78.5 Active 047454954 Problem Lumbosacral radiculopathy due to osteoarthritis of spine M47.27 Active 6216784 Problem Gastroesophageal reflux disease with esophagitis K 21.0 Active 233498808 Problem Body mass index (BMI) of 38.0-38.9 in adult Z68.38 Active 614187801 Problem Morbid (severe) obesity due to excess calories E66 .01 Active 155433643 ALLERGIES No Information ENCOUNTERS Encounter Location Date Diagnosis [facility] [address] [facility] [id number] [address] [place] [phone] Feb, Right medial knee pain M25.5 61 [facility] [address] [facility] [id number] [address] [place] [phone] Feb, Hypertension I10 ; Type 2 di [...] Transient visual loss of both eyes H53.123 [facility] [address] [id number] [address] [place] [phone] 09 Jan, 2018 Right medial knee pain M25.5 61 [facility] [address] [id number] [address] [place] [phone] 09 Jan, 2018 [facility] [address] [id number] [address] [place] [phone] Dec, [facility] WALK [facility] [address] [id number] [address] [place] [phone] 15 Dec, 2017 Acute maxillary sinusitis, r ecurrence not specified J01.00 [facility] [address] [id number] [address] [place] [phone] 15 Dec, 2017 [facility] [address] [id number] [address] [place] [phone] 07 Dec, 2017 Right medial knee pain M25.5 61 [facility] [address] [id number] [address] [place] [phone] November, [facility] [address] [id number] [address] [place] [phone] 02 Nov, 2017 Right medial knee pain M25.5 61 [facility] [address] [id number] [address] [place] [phone] Oct, Right medial knee pain M25.5 61 [facility] [address] [id number] [address] [place] [phone] Sep, Type 2 diabetes mellitus wit hout [...] 38.0-38.9 in adult Z68.38 and Neuropathy G62.9 [place] [address] [place] [id number] [address] [place] [phone] Aug, Right medial knee pain M25.5 61 [place] [address] [address] Aug, Controlled substance agreeme nt signed Z79.899 [place] [address] [address] Jul, Right medial knee pain M25.5 61 [place] [address] [address] Jun, Right medial knee pain M25.5 61 [place] [address] [address] May, Lumbosacral radiculopathy du e to osteoarthritis of spine M47.27 and Chondromalacia, right knee M94.261 [place] [address] [address] May, Right medial knee pain M25.5 61 and Seasonal allergic rhinitis due to pollen J30.1 [place] [address] [address] Apr, Right medial knee pain M25.5 61 and Gastroesophageal reflux disease with esophagitis K21.0 [place] [address] [address] Apr, Type 2 diabetes mellitus wit hout complication E11.9 ; Neuropathy G62.9 ; Hypertension I10 ; Vitamin D deficiency E55.9 ; Hypertriglyceridemia E78.1 ; Gastroesophageal reflux disease with esophagitis K21.0 ; CAD (coronary artery disease) I25.10 and Right medial knee pain M25.561 [place] [address] [place] [id number] [address] [place] [phone] 15 Mar, 2017 Right medial knee pain M25.5 61 and Type 2 diabetes mellitus without complication E11.9 [place] [address] [address] Feb, Chondromalacia, right knee M 94.261 and Lumbosacral radiculopathy due to osteoarthritis of spine M47.27 [place] [address] [address] Feb, Parotitis K11.20 [place] [address] [address] Feb, Type 2 diabetes mellitus wit hout complication E11.9 ; Neuropathy G62.9 ; Hypertension I10 ; Vitamin D deficiency E55.9 ; Hyperlipidemia, unspecified hyperlipidemia type E78.5 ; Morbid obesity due to excess calories E66.01 ; CAD (coronary artery disease) I25.10 ; Gastroesophageal reflux disease with esophagitis K21.0 ; Lymphadenopathy, periauricular R59.0 ; Right medial knee pain M25.561 and Parotitis K11.20 [place] [address] [address] Jan, [facility] [address] [place] [id number] [place] [id number] Jan, Dental examination Z01.20 an d Dental caries K02.9 [place] [address] [place] [id number] [address] [place] [phone] Jan, Vitamin D deficiency E55.9 [place] [address] [address] Jan, Right medial knee pain M25.5 61 [place] [address] [address] Jan, Type 2 diabetes mellitus wit hout complication E11.9 ; History of RI (myocardial infarction) I25.2 ; Hypertension I10 ; Gastroesophageal reflux disease with esophagitis K21.0 ; Seasonal allergic rhinitis due to pollen J30.1 and Right medial knee pain M25.561 [place] [address] [address] Dec, Seasonal allergic rhinitis d ue to pollen J30.1 [facility] [address] [address] November, Right medial knee pain M25.5 61 [facility] [address] [address] November, Other chest pain R07.89 ; CA D (coronary artery disease) I25.10 ; Hypertension I10 and Hyperlipidemia, unspecified hyperlipidemia type E78.5 [place] [address] [address] November, Hypertension I10 [place] [address] [address] Oct, Hypertriglyceridemia E78.1 [place] [address] [address] Oct, Type 2 diabetes mellitus wit hout complication E11.9 ; Neuropathy G62.9 ; History of RI (myocardial infarction) I25.2 ; Hypertension I10 ; Vitamin D deficiency E55.9 ; Hypertriglyceridemia E78.1 ; Right medial knee pain M25.561 ; Gastroesophageal reflux disease with esophagitis K21.0 and Nausea R11.0 [place] [address] [address] Sep, [facility] [address] [id number] Jul, Dental caries K02.9 and Irion al examination Z01.20 [facility] [address] [place] [id number] [place] [id number] Jul, [facility] [address] [address] Jun, [facility] [address] [id number] Jun, Dental examination Z01.20 [place] [address] [address] Jun, [place] [address] [address] Jun, [place] [address] [address] Jun, Right medial knee pain M25.5 61 ; Acute non-recurrent maxillary sinusitis J01.00 and Hypertension I10 [place] [address] [address] Apr, Type 2 diabetes mellitus wit hout complication E11.9 ; Neuropathy G62.9 ; Hypertension I10 ; Hypertriglyceridemia E78.1 ; Right medial knee pain M25.561 ; Morbid obesity due to excess calories E66.01 ; CAD (coronary artery disease) I25.10 ; Seasonal allergic rhinitis due to pollen J30.1 and Acute non- recurrent frontal sinusitis J01.[address] [address] Jan, Type 2 diabetes mellitus wit hout complication E11.9 ; Neuropathy G62.9 ; History of RI (myocardial infarction) I25.2 ; Hypertension I10 ; Vitamin D deficiency E55.9 ; Hypertriglyceridemia E78.1 ; Right medial knee pain M25.561 and Morbid obesity due to excess calories E66.01 [place] [address] [address] November, [address] [address] November, Type 2 diabetes mellitus wit hout complication E11.9 ; General medical exam Z00.00 ; Neuropathy G62.9 ; History of RI (myocardial infarction) I25.2 ; History of aortic aneurysm repair Z98.89 ; History of vitamin D deficiency Z86.39 ; Hypertension I10 and History of high cholesterol Z86.39 [place] [address] [address] Sep, Diabetes mellitus E11.9 ; Ne uropathy G62.9 ; Hypertension I10 ; CAD (coronary artery disease) I25.10 and Hypertriglyceridemia E78.1 [facility] [address] [facility] [id number] [address] [place] [phone] Sep, [facility] [address] [facility] [id number] [address] [place] [phone] Aug, [facility] [address] [facility] [id number] [address] [place] [phone] Jun, [facility] [address] [facility] [id number] [address] [place] [address] Jun, Type 2 diabetes mellitus wit hout complication E11.9 ; General medical exam Z00.00 ; Neuropathy G62.9 ; History of RI (myocardial infarction) I25.2 ; History of aortic [...] 6 hrs 1 tablet as needed 6h Dec, 28 days Active RESULTS No Results PROCEDURES No Known procedures INSTRUCTIONS MEDICATIONS ADMINISTERED No Known Medications MEDICAL (GENERAL) HISTORY Type Description Date Medical History Diabetes Type II Medical History Heart Stents x2 2010- Bare metal stent t o OM-2013 [facility] Medical History Hypertension Medical History 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 Medical History 4.2cm lymphnode right axilla Medical History 07/2013- 1.7 cm left renal cyst Medical History 2013-ECHO- EF 75%, normal LA pressures w / mild abnormal LV relaxation Medical History History of RI (myocardial infarction) Medical History History of RI (myocardial infarction) Surgical History Heart Stents x2 Surgical History Dissecting Aorta Hospitalization History dissecting aneurysm/ [place] 2010 Hospitalization History [place] 2012
--- OUTSIDE RECORDS SUMMARY | 2019-08-27 21:05 | XMS REPORT ---
Author Author Gerry GARCIA [facility] Address [address] [place] [address] Care Team Providers Care [employer] Project Manager Name Role Phone RAYMON GARCIA Unavailable PROBLEMS Type Condition ICD9-CM Code ILO13-LY Code Onset Dates Condition S tatus SNOMED Code Problem Vitamin D deficiency E55.9 Active 63747531 Problem Seasonal allergic rhinitis due to pollen J30.1 Active 54420358 Problem CAD (coronary artery disease) I25.10 Active 29369128 Problem Hypertension I10 Active 4757881 3 Problem Neuropathy G62.9 Active 411757309 Problem Type 2 diabetes mellitus wit h other specified complication, without long-term current use of insulin E11.69 Active 47308992 Problem Dyslipidemia (high LDL; low HDL) E78.5 Active 465342186 Problem Lumbosacral radiculopathy due to osteoarthritis of spine M47.27 Active 9886644 Problem Gastroesophageal reflux disease with esophagitis K 21.0 Active 482899905 Problem Body mass index (BMI) of 38.0-38.9 in adult Z68.38 Active 802068763 Problem Morbid (severe) obesity due to excess calories E66 .01 Active 339695209 ALLERGIES No Known Allergies ENCOUNTERS Encounter Location Date Diagnosis [facility] [address] [facility] [id number] [address] [place] [phone] Feb, Right medial knee pain M25.[address] [facility] [address] [facility] [id number] [address] [place] [phone] Feb, Hypertension I10 ; Type 2 di [...] eyes H53.123 [facility] [address] [id number] [address] [place] [phone] 09 Jan, 2018 Right medial knee pain M25.[address] [facility] [address] [id number] [address] [place] [phone] 09 Jan, 2018 [facility] [address] [id number] [address] [place] [phone] Dec, [facility] [address] [id number] [address] [place] [phone] 15 Dec, 2017 Acute maxillary sinusitis, r ecurrence not specified J01.00 [facility] [address] [id number] [address] [place] [phone] 15 Dec, 2017 [facility] [address] [id number] [address] [place] [phone] 07 Dec, 2017 Right medial knee pain M25.[address] [facility] [address] [id number] [address] [place] [phone] November, [facility] [address] [id number] [address] [place] [phone] November, Right medial knee pain M25.[address] [facility] [address] [id number] [address] [place] [phone] Oct, Right medial knee pain M25.[address] [facility] [address] [id number] [address] [place] [phone] Sep, Type 2 diabetes mellitus wit hout [...] 38.0-38.9 in adult Z68.38 and Neuropathy G62.9 [place] [address] [address] [facility] [id number] [address] [place] [phone] Aug, Right medial knee pain M25.5 [address] [place] [address] [address] [facility] [id number] [address] [place] [phone] Aug, Controlled substance agreeme nt signed Z79.899 [place] [address] [place] [phone] Jul, Right medial knee pain M25.5 [address] [place] [address] [place] [phone] Jun, Right medial knee pain M25.5 [address] [place] [address] [address] [place] [id number] [place] [phone] May, Lumbosacral radiculopathy du e to osteoarthritis of spine M47.27 and Chondromalacia, right knee M94.261 [place] [address] [place] [phone] May, Right medial knee pain M25.5 61 and Seasonal allergic rhinitis due to pollen J30.1 [place] [address] [address] [place] [id number] [address] [place] [phone] 30 Apr, 2017 Right medial knee pain M25.5 61 and Gastroesophageal reflux disease with esophagitis K21.0 [place] [address] [phone] 03 Apr, 2017 Type 2 diabetes mellitus wit hout complication E11.9 ; Neuropathy G62.9 ; Hypertension I10 ; Vitamin D deficiency E55.9 ; Hypertriglyceridemia E78.1 ; Gastroesophageal reflux disease with esophagitis K21.0 ; CAD (coronary artery disease) I25.10 and Right medial knee pain M25.561 [place] [address] [address] [facility] [id number] [address] [place] [phone] 15 Mar, 2017 Right medial knee pain M25.5 61 and Type 2 diabetes mellitus without complication E11.9 [place] [address] [address] [place] [id number] [address] [place] [phone] 31 Feb, 2017 Chondromalacia, right knee M 94.261 and Lumbosacral radiculopathy due to osteoarthritis of spine M47.27 [place] [address] [address] [place] [id number] [address] [place] [phone] Feb, Parotitis K11.20 [place] [address] [phone] Feb, Type 2 diabetes mellitus wit hout complication E11.9 ; Neuropathy G62.9 ; Hypertension I10 ; Vitamin D deficiency E55.9 ; Hyperlipidemia, unspecified hyperlipidemia type E78.5 ; Morbid obesity due to excess calories E66.01 ; CAD (coronary artery disease) I25.10 ; Gastroesophageal reflux disease with esophagitis K21.0 ; Lymphadenopathy, periauricular R59.0 ; Right medial knee pain M25.561 and Parotitis K11.20 [place] [address] [address] [place] [id number] [address] [place] [phone] Jan, [facility] [address] [place] [id number] [place] [id number] Jan, Dental examination Z01.20 an d Dental caries K02.9 [place] [address] [address] [place] [id number] [address] [place] [phone] Jan, Vitamin D deficiency E55.9 [place] [address] [address] [place] [id number] [address] [place] [phone] Jan, Right medial knee pain M25.5 [address] [place] [address] [address] [place] [id number] [address] [place] [phone] Jan, Type 2 diabetes mellitus wit hout complication E11.9 ; History of [place] (myocardial infarction) I25.2 ; Hypertension I10 ; Gastroesophageal reflux disease with esophagitis K21.0 ; Seasonal allergic rhinitis due to pollen J30.1 and Right medial knee pain M25.561 [place] [address] [address] [place] [id number] [address] [place] [address] Dec, Seasonal allergic rhinitis d ue to pollen J30.1 [place] [address] [address] November, Right medial knee pain M25.5 [address] [place] [address] [address] November, Other chest pain R07.89 ; CA D (coronary artery disease) I25.10 ; Hypertension I10 and Hyperlipidemia, unspecified hyperlipidemia type E78.5 [place] [address] [phone] November, Hypertension I10 [place] [address] [address] Oct, Hypertriglyceridemia E78.1 [place] [address] [address] Oct, Type 2 diabetes mellitus wit hout complication E11.9 ; Neuropathy G62.9 ; History of [place] (myocardial infarction) I25.2 ; Hypertension I10 ; Vitamin D deficiency E55.9 ; Hypertriglyceridemia E78.1 ; Right medial knee pain M25.561 ; Gastroesophageal reflux disease with esophagitis K21.0 and Nausea R11.0 [place] [address] [phone] Sep, [facility] [address] [id number] Jul, Dental caries K02.9 and [place] al examination Z01.20 [facility] [address] [place] [id number] [place] [id number] Jul, [place] [address] [phone] Jun, [facility] [address] [id number] Jun, Dental examination Z01.20 [place] [address] [phone] Jun, [place] [address] [place] [id number] [address] [place] [phone] Jun, [place] [address] [address] Jun, Right medial knee pain M25.5 61 ; Acute non-recurrent maxillary sinusitis J01.00 and Hypertension I10 [place] [address] [address] Apr, Type 2 diabetes mellitus wit hout complication E11.9 ; Neuropathy G62.9 ; Hypertension I10 ; Hypertriglyceridemia E78.1 ; Right medial knee pain M25.561 ; Morbid obesity due to excess calories E66.01 ; CAD (coronary artery disease) I25.10 ; Seasonal allergic rhinitis due to pollen J30.1 and Acute non- recurrent frontal sinusitis J01.10 [place] [address] [address] Jan, Type 2 diabetes mellitus wit hout complication E11.9 ; Neuropathy G62.9 ; History of [place] (myocardial infarction) I25.2 ; Hypertension I10 ; Vitamin D deficiency E55.9 ; Hypertriglyceridemia E78.1 ; Right medial knee pain M25.561 and Morbid obesity due to excess calories E66.01 [place] [address] [address] [place] [id number] [address] [place] [phone] November, [place] [address] [place] [id number] [place] [address] November, Type 2 diabetes mellitus wit hout complication E11.9 ; General medical exam Z00.00 ; Neuropathy G62.9 ; History of [place] (myocardial infarction) I25.2 ; History of aortic aneurysm repair Z98.89 ; History of vitamin D deficiency Z86.39 ; Hypertension I10 and History of high cholesterol Z86.39 [place] [address] [address] [place] [id number] [address] [place] [phone] Sep, Diabetes mellitus E11.9 ; Ne uropathy G62.9 ; Hypertension I10 ; CAD (coronary artery disease) I25.[address] [facility] [address] [facility] [id number] [address] [place] [phone] Sep, [facility] [address] [facility] [id number] [address] [place] [phone] Aug, [facility] [address] [facility] [id number] [address] [place] [phone] Jun, [facility] [address] [facility] [id number] [address] [place] [phone] Jun, Type 2 diabetes mellitus wit hout complication E11.9 ; General medical exam Z00.00 ; Neuropathy G62.9 ; History of [place] (myocardial infarction) I25.2 ; History of aortic aneurysm repair Z98.89 ; Flank pain R10.9 ; History of vitamin D deficiency Z86.39 ; Hypertension I10 and History of high cholesterol Z86.39 IMMUNIZATIONS No Known Immunizations SOCIAL HISTORY Never Assessed REASON FOR VISIT sinus infection Pt states that for 2 weeks he has had sinus pain/pressure and e ar pain, feels he has a sinus infection ENDY Song PLAN OF CARE Activity Details Follow Up prn Reason: VITAL SIGNS Height 67 in 2017-12-21 Weight 242.4 lbs 2017-12-21 Temperature 97.5 degrees Fahrenheit 2017-12-21 Heart Rate 80 bpm 2017-12-21 Respiratory Rate 18 2017-12-21 BMI 37.96 kg/m2 2017-12-21 Blood pressure systolic 142 mmHg 2017-12-21 Blood pressure diastolic 100 mmHg 2017-12-21 MEDICATIONS Medication Instructions Dosage Frequency Start Date End Date Duration S tatus Metformin HCl 1000 MG Orally Twice a day 1 tablet with meals 12h Active Coreg 6.25 MG Orally 2 times a day 1 tablet 12h Active Nitroglycerin 0.4 MG Sublingual one tablet for ch est pain every 5 minutes x 3 doses then to the ER as directed Jun, A ctive Glucocard Expression Test - In Vitro 2 times a day as directed 12h 15 Feb, 2017 Active Lisinopril 10 mg Orally Once a day 1 tablet 24h Jun, Active Ondansetron 4 MG Orally every 8 hrs 1 tablet on the tong ue and allow to dissolve 8h Oct, 10 days Active Augmentin 875-125 MG Orally every 12 hrs 1 tablet 12h 14 days Active Gabapentin 100 mg Orally Once a day at bedtime 1 capsule Jun, Active Pantoprazole Sodium 20 mg Orally Once a day 1 tablets 24h Oct, 17 Active Atorvastatin Calcium 10 mg Orally Once a day 1 tablet 24h Oct, 17 Active Fluticasone Propionate 50 MCG/ACT Nasally Once a day 1 spray in each nostril 24h Apr, 30 days Active Plavix 75 MG Orally Once a day 1 tablet 24h Jun, Active Hydrocodone-Acetaminophen 7.5-325 MG Orally every 6 hrs 1 tablet as needed 6h Dec, 28 days Active Cetirizine HCl 10 mg Orally Once a day 1 tablet 24h Apr, Active RESULTS No Results PROCEDURES No Known procedures INSTRUCTIONS MEDICATIONS ADMINISTERED No Known Medications MEDICAL (GENERAL) HISTORY Type Description Date Medical History Diabetes Type II Medical History Heart Stents x2 2010- Bare metal stent t o OM-2013 [facility] Medical History Hypertension Medical History 2010- 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 Medical History 4.2cm lymphnode right axilla Medical History 07/2013- 1.7 cm left renal cyst Medical History 2013-ECHO- EF 75%, normal LA pressures w / mild abnormal LV relaxation Medical History History of [place] (myocardial infarction) Medical History History of [place] (myocardial infarction) Surgical History Heart Stents x2 Surgical History Dissecting Aorta Hospitalization History dissecting aneurysm/ [place] 2010 Hospitalization History [place] 2012
--- OUTSIDE RECORDS SUMMARY | 2019-08-27 21:05 | XMS REPORT ---
Author Author Gerry SALINAS Organization [facility] Address [address] [place] [address] Care Team Providers Care Brusher Tender Name Role Phone RITA LING Unavailable PROBLEMS Type Condition ICD9-CM Code [id number] Code Onset Dates Condition S tatus SNOMED Code Problem Vitamin D deficiency E55.9 Active 19930450 Problem Seasonal allergic rhinitis due to pollen J30.1 Active 64590906 Problem CAD (coronary artery disease) I25.10 Active 02886833 Problem Hypertension I10 Active 5602695 3 Problem Neuropathy G62.9 Active 990506582 Problem Type 2 diabetes mellitus wit h other specified complication, without long-term current use of insulin E11.69 Active 64147296 Problem Dyslipidemia (high LDL; low HDL) E78.5 Active 613129161 Problem Lumbosacral radiculopathy due to osteoarthritis of spine M47.27 Active 8491261 Problem Gastroesophageal reflux disease with esophagitis K 21.0 Active 116924755 Problem Body mass index (BMI) of 38.0-38.9 in adult Z68.38 Active 986114391 Problem Morbid (severe) obesity due to excess calories E66 .01 Active 058286042 ALLERGIES No Information ENCOUNTERS Encounter Location Date Diagnosis [facility] [address] [id number] [address] [place] [id number] Feb, Hypertension I10 ; Type 2 di [...] Transient visual loss of both eyes H53.123 [facility] [address] [facility] [id number] [address] [place] [phone] Jan, Right medial knee pain M25.5 61 [facility] [address] [id number] [address] [place] [phone] Jan, [facility] [address] [id number] [address] [place] [phone] Dec, [facility] [address] [id number] [address] [place] [phone] Dec, Acute maxillary sinusitis, r ecurrence not specified J01.00 [facility] [address] [id number] [address] [place] [phone] Dec, [facility] [address] [id number] [address] [place] [id number] Dec, Right medial knee pain M25.5 61 [facility] [address] [id number] [address] [place] [phone] November, [facility] [address] [id number] [address] [place] [phone] November, Right medial knee pain M25.5 61 [facility] [address] [id number] [address] [place] [phone] Oct, Right medial knee pain M25.5 61 [facility] [address] [id number] [address] [place] [id number] Sep, Type 2 diabetes mellitus wit hout [...] 38.0-38.9 in adult Z68.38 and Neuropathy G62.9 [facility] [address] [id number] [address] [place] [phone] 28 Aug, 2017 Right medial knee pain M25.5 [address] [place] [address] [address] [facility] [id number] [address] [place] [phone] Aug, Controlled substance agreeme nt signed Z79.899 [place] [address] [address] [facility] [id number] [address] [place] [phone] Jul, Right medial knee pain M25.5 61 [place] [address] [address] [facility] [id number] [address] [place] [phone] Jun, Right medial knee pain M25.5 61 [place] [address] [address] [facility] [id number] [address] [place] [phone] May, Lumbosacral radiculopathy du e to osteoarthritis of spine M47.27 and Chondromalacia, right knee M94.261 [place] [address] [address] [facility] [id number] [address] [place] [phone] May, Right medial knee pain M25.5 61 and Seasonal allergic rhinitis due to pollen J30.1 [place] [address] [address] [facility] [id number] [address] [place] [phone] Apr, Right medial knee pain M25.5 61 and Gastroesophageal reflux disease with esophagitis K21.0 [place] [address] [address] [facility] [id number] [address] [place] [phone] Apr, Type 2 diabetes mellitus wit hout complication E11.9 ; Neuropathy G62.9 ; Hypertension I10 ; Vitamin D deficiency E55.9 ; Hypertriglyceridemia E78.1 ; Gastroesophageal reflux disease with esophagitis K21.0 ; CAD (coronary artery disease) I25.10 and Right medial knee pain M25.561 [place] [address] [address] [facility] [id number] [address] [place] [phone] Mar, Right medial knee pain M25.5 61 and Type 2 diabetes mellitus without complication E11.9 [place] [address] [address] [facility] [id number] [address] [place] [phone] Feb, Chondromalacia, right knee M 94.261 and Lumbosacral radiculopathy due to osteoarthritis of spine M47.27 [place] [address] [id number] [address] [place] [phone] Feb, Parotitis K11.20 [place] [address] [phone] Feb, Type 2 diabetes mellitus wit hout complication E11.9 ; Neuropathy G62.9 ; Hypertension I10 ; Vitamin D deficiency E55.9 ; Hyperlipidemia, unspecified hyperlipidemia type E78.5 ; Morbid obesity due to excess calories E66.01 ; CAD (coronary artery disease) I25.10 ; Gastroesophageal reflux disease with esophagitis K21.0 ; Lymphadenopathy, periauricular R59.0 ; Right medial knee pain M25.561 and Parotitis K11.20 [place] [address] [address] Jan, [facility] [id number] [place] [id number] Jan, Dental examination Z01.20 an d Dental caries K02.9 [place] [address] [address] Jan, Vitamin D deficiency E55.9 [place] [address] [address] Jan, Right medial knee pain M25.5 61 [place] [address] [address] Jan, Type 2 diabetes mellitus wit hout complication E11.9 ; History of [place] (myocardial infarction) I25.2 ; Hypertension I10 ; Gastroesophageal reflux disease with esophagitis K21.0 ; Seasonal allergic rhinitis due to pollen J30.1 and Right medial knee pain M25.561 [place] [address] [address] Dec, Seasonal allergic rhinitis d ue to pollen J30.1 [place] [address] [address] November, Right medial knee pain M25.5 61 [facility] [address] [facility] [facility] [id number] [place] [phone] November, Other chest pain R07.89 ; CA D (coronary artery disease) I25.10 ; Hypertension I10 and Hyperlipidemia, unspecified hyperlipidemia type E78.5 [place] [address] [facility] [id number] [place] [phone] November, Hypertension I10 [place] [id number] [place] [phone] Oct, Hypertriglyceridemia E78.1 [place] [address] [address] Oct, Type 2 diabetes mellitus wit hout complication E11.9 ; Neuropathy G62.9 ; History of [place] (myocardial infarction) I25.2 ; Hypertension I10 ; Vitamin D deficiency E55.9 ; Hypertriglyceridemia E78.1 ; Right medial knee pain M25.561 ; Gastroesophageal reflux disease with esophagitis K21.0 and Nausea R11.0 [facility] [address] [id number] [address] [place] [phone] Sep, [facility] [address] [id number] Jul, Dental caries K02.9 and [place] al examination Z01.20 [facility] [id number] [place] [id number] Jul, [facility] [id number] [place] [phone] Jun, [facility] [address] [id number] [place] [id number] Jun, Dental examination Z01.20 [facility] [address] [facility] [facility] [id number] [address] [place] [phone] Jun, [facility] [id number] [address] [place] [phone] Jun, [place] [address] [address] Jun, Right medial knee pain M25.5 61 ; Acute non-recurrent maxillary sinusitis J01.00 and Hypertension I10 [place] [address] [address] 04 Apr, 2016 Type 2 diabetes mellitus wit hout complication E11.9 ; Neuropathy G62.9 ; Hypertension I10 ; Hypertriglyceridemia E78.1 ; Right medial knee pain M25.561 ; Morbid obesity due to excess calories E66.01 ; CAD (coronary artery disease) I25.10 ; Seasonal allergic rhinitis due to pollen J30.1 and Acute non- recurrent frontal sinusitis J01.10 [place] [address] [address] Jan, Type 2 diabetes mellitus wit hout complication E11.9 ; Neuropathy G62.9 ; History of [place] (myocardial infarction) I25.2 ; Hypertension I10 ; Vitamin D deficiency E55.9 ; Hypertriglyceridemia E78.1 ; Right medial knee pain M25.561 and Morbid obesity due to excess calories E66.01 [place] [address] [address] November, [place] [address] [phone] November, Type 2 diabetes mellitus wit hout complication E11.9 ; General medical exam Z00.00 ; Neuropathy G62.9 ; History of [place] (myocardial infarction) I25.2 ; History of aortic aneurysm repair Z98.89 ; History of vitamin D deficiency Z86.39 ; Hypertension I10 and History of high cholesterol Z86.39 [place] [address] [address] Sep, Diabetes mellitus E11.9 ; Ne uropathy G62.9 ; Hypertension I10 ; CAD (coronary artery disease) I25.10 and Hypertriglyceridemia E78.1 [place] [address] [address] Sep, [facility] [address] [facility] [facility] [id number] [address] [place] [phone] Aug, [facility] [address] [facility] [facility] [id number] [address] [place] [phone] Jun, [facility] [address] [facility] [facility] [id number] [address] [place] [address] Jun, Type 2 diabetes mellitus wit hout complication E11.9 ; General medical exam Z00.00 ; Neuropathy G62.9 ; History of [place] (myocardial infarction) I25.2 ; History of aortic aneurysm repair Z98.89 ; Flank pain R10.9 ; History of vitamin D deficiency Z86.39 ; Hypertension I10 and History of high cholesterol Z86.39 IMMUNIZATIONS No Known Immunizations SOCIAL HISTORY Never Assessed REASON FOR VISIT Controlled Med Refill/referral info PLAN OF CARE VITAL SIGNS MEDICATIONS Medication Instructions Dosage Frequency Start Date End Date Duration S tatus Hydrocodone-Acetaminophen 7.5-325 MG Orally every 6 hrs 1 tablet as needed 6h November, 28 days Active RESULTS No Results PROCEDURES No Known procedures INSTRUCTIONS MEDICATIONS ADMINISTERED No Known Medications MEDICAL (GENERAL) HISTORY Type Description Date Medical History Diabetes Type II Medical History Heart Stents x2 2010- Bare metal stent t o OM-2013 [facility] Medical History Hypertension Medical History 2010- [facility]- 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 Medical History 4.2cm lymphnode right axilla Medical History 07/2013- 1.7 cm left renal cyst Medical History 2013-ECHO- EF 75%, normal LA pressures w / mild abnormal LV relaxation Medical History History of [place] (myocardial infarction) Medical History History of [place] (myocardial infarction) Surgical History Heart Stents x2 Surgical History Dissecting Aorta Hospitalization History dissecting aneurysm/ [place] 2010 Hospitalization History [place] 2012
--- OUTSIDE RECORDS SUMMARY | 2019-08-27 21:05 | XMS REPORT ---
Author Author Gerry SALINAS Organization [facility] Address [address] [place] [address] Care Team Providers Care Waistband Setter Lockstitch Name Role Phone LING SALINAS Unavailable PROBLEMS Type Condition ICD9-CM Code [id number] Code Onset Dates Condition S tatus SNOMED Code Problem Vitamin D deficiency E55.9 Active 95753985 Problem Seasonal allergic rhinitis due to pollen J30.1 Active 09479071 Problem CAD (coronary artery disease) I25.10 Active 62938446 Problem Hypertension I10 Active 2016943 3 Problem Neuropathy G62.9 Active 427633409 Problem Type 2 diabetes mellitus wit h other specified complication, without long-term current use of insulin E11.69 Active 49332190 Problem Dyslipidemia (high LDL; low HDL) E78.5 Active 900900365 Problem Lumbosacral radiculopathy due to osteoarthritis of spine M47.27 Active 3376075 Problem Gastroesophageal reflux disease with esophagitis K 21.0 Active 383578482 Problem Body mass index (BMI) of 38.0-38.9 in adult Z68.38 Active 890859604 Problem Morbid (severe) obesity due to excess calories E66 .01 Active 848022432 ALLERGIES No Known Allergies ENCOUNTERS Encounter Location Date Diagnosis [facility] [address] [facility] [id number] [address] [place] [phone] Mar, Right medial knee pain M25.5 [address] [place] [address] [facility] [id number] [address] [place] [phone] Feb, Right medial knee pain M25.5 [address] [place] [address] [address] [facility] [id number] [address] [place] [phone] Feb, Hypertension I10 ; Type 2 di [...] Transient visual loss of both eyes H53.123 [facility] [address] [id number] [address] [place] [phone] 09 Jan, 2018 Right medial knee pain M25.5 61 [facility] [address] [id number] [address] [place] [phone] 09 Jan, 2018 [facility] [address] [id number] [address] [place] [phone] 19 Dec, 2017 [facility] WALK IN [facility] [address] [facility] [id number] [address] [place] [phone] Dec, Acute maxillary sinusitis, r ecurrence not specified J01.00 [facility] [address] [id number] [address] [place] [phone] Dec, [facility] [address] [id number] [address] [place] [phone] Dec, Right medial knee pain M25.5 [address] [place] [address] [id number] [address] [place] [phone] November, [facility] [address] [id number] [address] [place] [phone] November, Right medial knee pain M25.5 61 [facility] [address] [id number] [address] [place] [phone] Oct, Right medial knee pain M25.5 [address] [place] [address] [id number] [address] [place] [phone] Sep, Type 2 diabetes mellitus wit hout [...] 38.0-38.9 in adult Z68.38 and Neuropathy G62.9 [place] [address] [address] [place] [id number] [address] [place] [phone] Aug, Right medial knee pain M25.5 [address] [place] [address] [address] [place] [id number] [place] [phone] Aug, Controlled substance agreeme nt signed Z79.899 [place] [address] [address] [place] [id number] [address] [place] [phone] Jul, Right medial knee pain M25.5 [address] [place] [address] [address] [place] [id number] [place] [phone] Jun, Right medial knee pain M25.5 61 [place] [address] [phone] May, Lumbosacral radiculopathy du e to osteoarthritis of spine M47.27 and Chondromalacia, right knee M94.261 [place] [address] [phone] May, Right medial knee pain M25.5 61 and Seasonal allergic rhinitis due to pollen J30.1 [place] [address] [address] [place] [id number] [address] [place] [phone] Apr, Right medial knee pain M25.5 61 and Gastroesophageal reflux disease with esophagitis K21.0 [place] [address] [address] [place] [id number] [address] [place] [phone] Apr, Type 2 diabetes mellitus wit hout complication E11.9 ; Neuropathy G62.9 ; Hypertension I10 ; Vitamin D deficiency E55.9 ; Hypertriglyceridemia E78.1 ; Gastroesophageal reflux disease with esophagitis K21.0 ; CAD (coronary artery disease) I25.10 and Right medial knee pain M25.561 [place] [address] [address] [place] [id number] [address] [place] [phone] Mar, Right medial knee pain M25.5 61 and Type 2 diabetes mellitus without complication E11.9 [place] [id number] [place] [address] Feb, Chondromalacia, right knee M 94.261 and Lumbosacral radiculopathy due to osteoarthritis of spine M47.27 [place] [address] [address] [place] [id number] [address] [place] [phone] Feb, Parotitis K11.20 [place] [address] [place] [id number] [address] [place] [phone] Feb, Type 2 diabetes mellitus wit hout complication E11.9 ; Neuropathy G62.9 ; Hypertension I10 ; Vitamin D deficiency E55.9 ; Hyperlipidemia, unspecified hyperlipidemia type E78.5 ; Morbid obesity due to excess calories E66.01 ; CAD (coronary artery disease) I25.10 ; Gastroesophageal reflux disease with esophagitis K21.0 ; Lymphadenopathy, periauricular R59.0 ; Right medial knee pain M25.561 and Parotitis K11.20 [place] [address] [address] [place] [phone] Jan, [facility] [address] [facility] [id number] [address] [place] [id number] Jan, Dental examination Z01.20 an d Dental caries K02.9 [place] [address] [address] [place] [phone] Jan, Vitamin D deficiency E55.9 [place] [address] [place] [id number] [address] [place] [phone] Jan, Right medial knee pain M25.5 [address] [place] [address] [address] [place] [id number] [address] [place] [phone] Jan, Type 2 diabetes mellitus wit hout complication E11.9 ; History of NV (myocardial infarction) I25.2 ; Hypertension I10 ; Gastroesophageal reflux disease with esophagitis K21.0 ; Seasonal allergic rhinitis due to pollen J30.1 and Right medial knee pain M25.561 [place] [address] [phone] Dec, Seasonal allergic rhinitis d ue to pollen J30.1 [place] [address] [phone] November, Right medial knee pain M25.5 [address] [place] [address] [address] November, Other chest pain R07.89 ; CA D (coronary artery disease) I25.10 ; Hypertension I10 and Hyperlipidemia, unspecified hyperlipidemia type E78.5 [place] [address] [phone] November, Hypertension I10 [place] [address] [address] Oct, Hypertriglyceridemia E78.1 [place] [address] [phone] Oct, Type 2 diabetes mellitus wit hout complication E11.9 ; Neuropathy G62.9 ; History of NV (myocardial infarction) I25.2 ; Hypertension I10 ; Vitamin D deficiency E55.9 ; Hypertriglyceridemia E78.1 ; Right medial knee pain M25.561 ; Gastroesophageal reflux disease with esophagitis K21.0 and Nausea R11.0 [place] [address] [phone] Sep, [facility] [address] [id number] Jul, Dental caries K02.9 and Angelina al examination Z01.20 [facility] [address] [id number] Jul, [facility] [address] [phone] Jun, [facility] [address] [id number] 13 Jun, 2016 Dental examination Z01.20 [place] [address] [facility] [id number] [address] [place] [phone] Jun, [place] [address] [place] [id number] [address] [place] [phone] Jun, [place] [address] [place] [id number] [address] [place] [phone] Jun, Right medial knee pain M25.5 61 ; Acute non-recurrent maxillary sinusitis J01.00 and Hypertension I10 [place] [address] [place] [id number] [place] [phone] 04 Apr, 2016 Type 2 diabetes mellitus wit hout complication E11.9 ; Neuropathy G62.9 ; Hypertension I10 ; Hypertriglyceridemia E78.1 ; Right medial knee pain M25.561 ; Morbid obesity due to excess calories E66.01 ; CAD (coronary artery disease) I25.10 ; Seasonal allergic rhinitis due to pollen J30.1 and Acute non- recurrent frontal sinusitis J01.10 [place] [address] [address] [place] [id number] [address] [place] [phone] 14 Jan, 2016 Type 2 diabetes mellitus wit hout complication E11.9 ; Neuropathy G62.9 ; History of NV (myocardial infarction) I25.2 ; Hypertension I10 ; Vitamin D deficiency E55.9 ; Hypertriglyceridemia E78.1 ; Right medial knee pain M25.561 and Morbid obesity due to excess calories E66.01 [place] [address] [address] [place] [phone] November, [place] [address] [place] [id number] [address] [place] [phone] November, Type 2 diabetes mellitus wit hout complication E11.9 ; General medical exam Z00.00 ; Neuropathy G62.9 ; History of NV (myocardial infarction) I25.2 ; History of aortic aneurysm repair Z98.89 ; History of vitamin D deficiency Z86.39 ; Hypertension I10 and History of high cholesterol Z86.39 [place] [address] [place] [id number] [place] [phone] Sep, Diabetes mellitus E11.9 ; Ne uropathy G62.9 ; Hypertension I10 ; CAD (coronary artery disease) I25.10 and Hypertriglyceridemia E78.1 [facility] [address] [facility] [id number] [address] [place] [phone] Sep, [facility] [address] [facility] [id number] [address] [place] [phone] Aug, [facility] [address] [facility] [id number] [address] [place] [phone] Jun, [facility] [address] [facility] [id number] [address] [place] [address] Jun, Type 2 diabetes mellitus wit hout complication E11.9 ; General medical exam Z00.00 ; Neuropathy G62.9 ; History of NV (myocardial infarction) I25.2 ; History of aortic aneurysm repair Z98.89 ; Flank pain R10.9 ; History of vitamin D deficiency Z86.39 ; Hypertension I10 and History of high cholesterol Z86.39 IMMUNIZATIONS No Known Immunizations SOCIAL HISTORY Never Assessed REASON FOR VISIT htn--tcuppeZach, pt came fasting today. Stating due for labs, -needing refill on gabapentin hasn't taken in several months and flonase, -having headache and alexander rred vision at times. BP elevated today. PLAN OF CARE Activity Details Follow Up 2 - 3 Days, 3 Months, prn Re ason:BP check/CHM/DM-HTN VITAL SIGNS Height 67 in 2018-02-08 Weight 234.2 lbs 2018-02-08 Temperature 98.0 degrees Fahrenheit 2018-02-08 Heart Rate 76 bpm 2018-02-08 Respiratory Rate 20 2018-02-08 BMI 36.68 kg/m2 2018-02-08 Blood pressure systolic 152 mmHg 2018-02-08 Blood pressure diastolic 102 mmHg 2018-02-08 MEDICATIONS Medication Instructions Dosage Frequency Start Date End Date Duration S maryjane Plavix 75 MG Orally Once a day 1 tablet 24h Jun, 90 days Active Coreg 6.25 MG Orally 2 times a day 1 tablet 12h 90 days Active Fluticasone Propionate 50 MCG/ACT Nasally Once a day 1 spray in each nostril 24h Apr, 30 days Active Aspirin Adult Low Dose 81 MG Orally Once a day 1 tablet 24h 90 days Active Ondansetron 4 MG Orally every 8 hrs 1 tablet on the tong ue and allow to dissolve 8h Oct, 10 days Active Metformin HCl 1000 MG Orally 2 times a day TAKE ONE TABLET B Y MOUTH TWICE DAILY WITH MEALS 12h 90 Active Atorvastatin Calcium 10 mg Orally Once a day 1 tablet 24h 10 2016 90 days Active Pantoprazole Sodium 20 mg Orally Once a day TAKE ONE TABLET BY M OUTH ONCE DAILY 24h 90 Active Lisinopril 20 MG Orally Once a day 1 tablet 24h 11 Jun, 2015 90 days Active Glucocard Expression Test - In Vitro 2 times a day as directed 12h Feb, Active Gabapentin 100 mg Orally Once a day at bedtime 1 capsule Jun, 90 days Active Cetirizine HCl 10 mg Orally Once a day 1 tablet 24h Apr, Active Nitroglycerin 0.4 MG Sublingual one tablet for ch est pain every 5 minutes x 3 doses then to the ER as directed Jun, A ctive Hydrocodone-Acetaminophen 7.5-325 MG Orally every 6 hrs 1 tablet as needed 6h Jan, 28 days Active RESULTS No Results PROCEDURES Procedure Date Ordered Result Body Site GLYCATED HEMOGLOBIN TEST Feb 08, 2018 MICROALBUMIN, SEMIQUANT Feb 08, 2018 COMPLETE CBC W/AUTO DIFF WBC Feb 08, 2018 LIPID PANEL Feb 08, 2018 ASSAY OF VITAMIN D Feb 08, 2018 COMPREHEN METABOLIC PANEL Feb 08, 2018 INSTRUCTIONS MEDICATIONS ADMINISTERED No Known Medications MEDICAL (GENERAL) HISTORY Type Description Date Medical History Diabetes Type II Medical History Heart Stents x2 2010- Bare metal stent t o OM-2013 [facility] Medical History Hypertension Medical History 2010- 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 Medical History 4.2cm lymphnode right axilla Medical History 07/2013- 1.7 cm left renal cyst Medical History 2013-ECHO- EF 75%, normal LA pressures w / mild abnormal LV relaxation Medical History History of NV (myocardial infarction) Medical History History of NV (myocardial infarction) Surgical History Heart Stents x2 Surgical History Dissecting Aorta Hospitalization History dissecting aneurysm/ [place] 2010 Hospitalization History [place] 2012
--- OUTSIDE RECORDS SUMMARY | 2019-08-27 21:05 | XMS REPORT ---
Author Author Gerry SALINAS Organization [facility] Address [address] [place] [address] Care Team Providers Care Med Specialist Name Role Phone RITA LING Unavailable PROBLEMS Type Condition ICD9-CM Code [id number] Code Onset Dates Condition S tatus SNOMED Code Problem Vitamin D deficiency E55.9 Active 38571759 Problem Seasonal allergic rhinitis due to pollen J30.1 Active 21535383 Problem CAD (coronary artery disease) I25.10 Active 21884729 Problem Hypertension I10 Active 3285880 3 Problem Neuropathy G62.9 Active 854198325 Problem Type 2 diabetes mellitus wit h other specified complication, without long-term current use of insulin E11.69 Active 14191347 Problem Dyslipidemia (high LDL; low HDL) E78.5 Active 561545548 Problem Lumbosacral radiculopathy due to osteoarthritis of spine M47.27 Active 2330992 Problem Gastroesophageal reflux disease with esophagitis K 21.0 Active 481867949 Problem Body mass index (BMI) of 38.0-38.9 in adult Z68.38 Active 975901823 Problem Morbid (severe) obesity due to excess calories E66 .01 Active 810142529 ALLERGIES No Information ENCOUNTERS Encounter Location Date Diagnosis [facility] [address] [id number] [address] [place] [phone] Feb, Right medial knee pain M25.5 61 [facility] [address] [id number] [address] [place] [phone] Feb, Hypertension I10 ; Type 2 di [...] Transient visual loss of both eyes H53.123 [facility] [address] [id number] [address] [place] [phone] 09 Jan, 2018 Right medial knee pain M25.5 61 [facility] [address] [id number] [address] [place] [phone] 09 Jan, 2018 [facility] [address] [id number] [address] [place] [phone] Dec, [facility] [address] [id number] [address] [place] [phone] 15 Dec, 2017 Acute maxillary sinusitis, r ecurrence not specified J01.00 [facility] [address] [id number] [address] [place] [phone] 15 Dec, 2017 [facility] [address] [id number] [address] [place] [phone] 07 Dec, 2017 Right medial knee pain M25.5 61 [facility] [address] [id number] [address] [place] [phone] November, [facility] [address] [id number] [address] [place] [phone] 02 Nov, 2017 Right medial knee pain M25.5 61 [facility] [address] [id number] [address] [place] [phone] Oct, Right medial knee pain M25.5 61 [facility] [address] [id number] [address] [place] [phone] Sep, Type 2 diabetes mellitus wit hout [...] adult Z68.38 and Neuropathy G62.9 [place] [address] [place] [id number] [place] [phone] Aug, Right medial knee pain M25.5 61 [place] [address] [address] Aug, Controlled substance agreeme nt signed Z79.899 [place] [address] [address] Jul, Right medial knee pain M25.5 61 [place] [address] [address] Jun, Right medial knee pain M25.5 61 [place] [address] [address] May, Lumbosacral radiculopathy du e to osteoarthritis of spine M47.27 and Chondromalacia, right knee M94.261 [place] [address] [address] May, Right medial knee pain M25.5 61 and Seasonal allergic rhinitis due to pollen J30.1 [place] [address] [address] Apr, Right medial knee pain M25.5 61 and Gastroesophageal reflux disease with esophagitis K21.0 [place] [address] [address] Apr, Type 2 diabetes mellitus wit hout complication E11.9 ; Neuropathy G62.9 ; Hypertension I10 ; Vitamin D deficiency E55.9 ; Hypertriglyceridemia E78.1 ; Gastroesophageal reflux disease with esophagitis K21.0 ; CAD (coronary artery disease) I25.10 and Right medial knee pain M25.561 [place] [address] [place] [id number] [address] [place] [phone] 15 Mar, 2017 Right medial knee pain M25.5 61 and Type 2 diabetes mellitus without complication E11.9 [place] [address] [address] Feb, Chondromalacia, right knee M 94.261 and Lumbosacral radiculopathy due to osteoarthritis of spine M47.27 [place] [address] [address] Feb, Parotitis K11.20 [place] [address] [address] Feb, Type 2 diabetes mellitus wit hout complication E11.9 ; Neuropathy G62.9 ; Hypertension I10 ; Vitamin D deficiency E55.9 ; Hyperlipidemia, unspecified hyperlipidemia type E78.5 ; Morbid obesity due to excess calories E66.01 ; CAD (coronary artery disease) I25.10 ; Gastroesophageal reflux disease with esophagitis K21.0 ; Lymphadenopathy, periauricular R59.0 ; Right medial knee pain M25.561 and Parotitis K11.20 [place] [address] [address] Jan, [facility] [address] [place] [id number] [place] [id number] Jan, Dental examination Z01.20 an d Dental caries K02.9 [place] [address] [place] [id number] [address] [place] [phone] Jan, Vitamin D deficiency E55.9 [place] [address] [address] Jan, Right medial knee pain M25.5 61 [place] [address] [address] Jan, Type 2 diabetes mellitus wit hout complication E11.9 ; History of [place] (myocardial infarction) I25.2 ; Hypertension I10 ; Gastroesophageal reflux disease with esophagitis K21.0 ; Seasonal allergic rhinitis due to pollen J30.1 and Right medial knee pain M25.561 [place] [address] [address] Dec, Seasonal allergic rhinitis d ue to pollen J30.1 [facility] [address] [address] November, Right medial knee pain M25.5 61 [facility] [address] [address] November, Other chest pain R07.89 ; CA D (coronary artery disease) I25.10 ; Hypertension I10 and Hyperlipidemia, unspecified hyperlipidemia type E78.5 [place] [address] [address] November, Hypertension I10 [place] [address] [address] Oct, Hypertriglyceridemia E78.1 [place] [address] [address] Oct, Type 2 diabetes mellitus wit hout complication E11.9 ; Neuropathy G62.9 ; History of [place] (myocardial infarction) I25.2 ; Hypertension I10 ; Vitamin D deficiency E55.9 ; Hypertriglyceridemia E78.1 ; Right medial knee pain M25.561 ; Gastroesophageal reflux disease with esophagitis K21.0 and Nausea R11.0 [place] [address] [address] Sep, [facility] [address] [id number] Jul, Dental caries K02.9 and [place] al examination Z01.20 [facility] [address] [place] [id number] [place] [id number] Jul, [facility] [address] [address] Jun, [facility] [address] [id number] Jun, Dental examination Z01.20 [place] [address] [address] Jun, [place] [address] [address] Jun, [place] [address] [address] Jun, Right medial knee pain M25.5 61 ; Acute non-recurrent maxillary sinusitis J01.00 and Hypertension I10 [place] [address] [address] Apr, Type 2 diabetes mellitus wit hout complication E11.9 ; Neuropathy G62.9 ; Hypertension I10 ; Hypertriglyceridemia E78.1 ; Right medial knee pain M25.561 ; Morbid obesity due to excess calories E66.01 ; CAD (coronary artery disease) I25.10 ; Seasonal allergic rhinitis due to pollen J30.1 and Acute non- recurrent frontal sinusitis J01.[address] [address] Jan, Type 2 diabetes mellitus wit hout complication E11.9 ; Neuropathy G62.9 ; History of [place] (myocardial infarction) I25.2 ; Hypertension I10 ; Vitamin D deficiency E55.9 ; Hypertriglyceridemia E78.1 ; Right medial knee pain M25.561 and Morbid obesity due to excess calories E66.01 [place] [address] [address] November, [address] [address] November, Type 2 diabetes mellitus wit hout complication E11.9 ; General medical exam Z00.00 ; Neuropathy G62.9 ; History of [place] (myocardial infarction) I25.2 ; History of aortic aneurysm repair Z98.89 ; History of vitamin D deficiency Z86.39 ; Hypertension I10 and History of high cholesterol Z86.39 [place] [address] [address] Sep, Diabetes mellitus E11.9 ; Ne uropathy G62.9 ; Hypertension I10 ; CAD (coronary artery disease) I25.10 and Hypertriglyceridemia E78.1 [facility] [address] [id number] [address] [place] [phone] Sep, [facility] [address] [id number] [address] [place] [phone] Aug, [facility] [address] [id number] [address] [place] [phone] Jun, [facility] [address] [id number] [address] [place] [phone] Jun, Type 2 diabetes mellitus wit hout complication E11.9 ; General medical exam Z00.00 ; Neuropathy G62.9 ; History of [place] (myocardial infarction) I25.2 ; History of aortic aneurysm repair Z98.89 ; Flank pain R10.9 ; History of vitamin D deficiency Z86.39 ; Hypertension I10 and History of high cholesterol Z86.39 IMMUNIZATIONS No Known Immunizations SOCIAL HISTORY Never Assessed REASON FOR VISIT FYI PLAN OF CARE VITAL SIGNS MEDICATIONS Unknown Medications RESULTS No Results PROCEDURES No Known procedures INSTRUCTIONS MEDICATIONS ADMINISTERED No Known Medications MEDICAL (GENERAL) HISTORY Type Description Date Medical History Diabetes Type II Medical History Heart Stents x2 2010- Bare metal stent t o OM-2013 [facility] Medical History Hypertension Medical History 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
--- OUTSIDE RECORDS SUMMARY | 2019-08-27 21:05 | XMS REPORT ---
Author Author Gerry DIEHL Organization [facility] Address [address] [place] [address] Care Team Providers Care Protective Signal Operator Name Role Phone RITA LING Unavailable PROBLEMS Type Condition ICD9-CM Code LSK37-TH Code Onset Dates Condition S tatus SNOMED Code Problem Vitamin D deficiency E55.9 Active 95996220 Problem Seasonal allergic rhinitis due to pollen J30.1 Active 10726261 Problem CAD (coronary artery disease) I25.10 Active 29312005 Problem Hypertension I10 Active 0008371 3 Problem Neuropathy G62.9 Active 528460534 Problem Type 2 diabetes mellitus wit h other specified complication, without long-term current use of insulin E11.69 Active 06589734 Problem Dyslipidemia (high LDL; low HDL) E78.5 Active 507960889 Problem Lumbosacral radiculopathy due to osteoarthritis of spine M47.27 Active 4751934 Problem Gastroesophageal reflux disease with esophagitis K 21.0 Active 892749432 Problem Body mass index (BMI) of 38.0-38.9 in adult Z68.38 Active 292610973 Problem Morbid (severe) obesity due to excess calories E66 .01 Active 768943062 ALLERGIES No Information ENCOUNTERS Encounter Location Date Diagnosis [facility] [address] [facility] [id number] [address] [place] [phone] Feb, Right medial knee pain M25.[address] [facility] [address] [facility] [id number] [address] [place] [address] Feb, Hypertension I10 ; Type 2 di [...] Transient visual loss of both eyes H53.123 [facility] [address] [id number] [address] [place] [address] 09 Jan, 2018 Right medial knee pain M25.[address] [facility] [address] [id number] [address] [place] [phone] [address], [address] [facility] [address] [id number] [address] [place] [phone] Dec, [facility] IN [facility] [address] [id number] [address] [place] [address] 15 Dec, 2017 Acute maxillary sinusitis, r ecurrence not specified J01.00 [facility] [address] [id number] [address] [place] [phone] [address], [address] [facility] [address] [id number] [address] [place] [phone] 07 Dec, 2017 Right medial knee pain M25.[address] [facility] [address] [id number] [address] [place] [address] November, [facility] [address] [id number] [address] [place] [phone] 02 Nov, 2017 Right medial knee pain M25.[address] [facility] [address] [id number] [address] [place] [address] Oct, Right medial knee pain M25.[address] [facility] [address] [id number] [address] [place] [address] Sep, Type 2 diabetes mellitus wit hout [...] 38.0-38.9 in adult Z68.38 and Neuropathy G62.9 [place] [address] [place] [id number] [address] [place] [address] Aug, Right medial knee pain M25.5 61 [place] [address] [address] Aug, Controlled substance agreeme nt signed Z79.899 [place] [address] [address] Jul, Right medial knee pain M25.5 61 [place] [address] [address] Jun, Right medial knee pain M25.5 61 [place] [address] [address] May, Lumbosacral radiculopathy du e to osteoarthritis of spine M47.27 and Chondromalacia, right knee M94.261 [place] [address] [address] May, Right medial knee pain M25.5 61 and Seasonal allergic rhinitis due to pollen J30.1 [place] [address] [address] Apr, Right medial knee pain M25.5 61 and Gastroesophageal reflux disease with esophagitis K21.0 [place] [address] [address] Apr, Type 2 diabetes mellitus wit hout complication E11.9 ; Neuropathy G62.9 ; Hypertension I10 ; Vitamin D deficiency E55.9 ; Hypertriglyceridemia E78.1 ; Gastroesophageal reflux disease with esophagitis K21.0 ; CAD (coronary artery disease) I25.10 and Right medial knee pain M25.561 [place] [address] [place] [id number] [address] [place] [address] 15 Mar, 2017 Right medial knee pain M25.5 61 and Type 2 diabetes mellitus without complication E11.9 [place] [address] [address] Feb, Chondromalacia, right knee M 94.261 and Lumbosacral radiculopathy due to osteoarthritis of spine M47.27 [place] [address] [address] Feb, Parotitis K11.20 [place] [address] [address] Feb, Type 2 diabetes mellitus wit hout complication E11.9 ; Neuropathy G62.9 ; Hypertension I10 ; Vitamin D deficiency E55.9 ; Hyperlipidemia, unspecified hyperlipidemia type E78.5 ; Morbid obesity due to excess calories E66.01 ; CAD (coronary artery disease) I25.10 ; Gastroesophageal reflux disease with esophagitis K21.0 ; Lymphadenopathy, periauricular R59.0 ; Right medial knee pain M25.561 and Parotitis K11.20 [place] [address] [address] Jan, [facility] [address] [place] [id number] [place] [id number] Jan, Dental examination Z01.20 an d Dental caries K02.9 [place] [address] [place] [id number] [address] [place] [address] Jan, Vitamin D deficiency E55.9 [place] [address] [address] Jan, Right medial knee pain M25.5 61 [place] [address] [address] Jan, Type 2 diabetes mellitus wit hout complication E11.9 ; History of [place] (myocardial infarction) I25.2 ; Hypertension I10 ; Gastroesophageal reflux disease with esophagitis K21.0 ; Seasonal allergic rhinitis due to pollen J30.1 and Right medial knee pain M25.561 [place] [address] [address] Dec, Seasonal allergic rhinitis d ue to pollen J30.1 [facility] [address] [address] November, Right medial knee pain M25.[address] [facility] [address] [address] November, Other chest pain R07.89 ; CA D (coronary artery disease) I25.10 ; Hypertension I10 and Hyperlipidemia, unspecified hyperlipidemia type E78.5 [place] [address] [address] November, Hypertension I10 [place] [address] [address] Oct, Hypertriglyceridemia E78.1 [place] [address] [address] Oct, Type 2 diabetes mellitus wit hout complication E11.9 ; Neuropathy G62.9 ; History of [place] (myocardial infarction) I25.2 ; Hypertension I10 ; Vitamin D deficiency E55.9 ; Hypertriglyceridemia E78.1 ; Right medial knee pain M25.561 ; Gastroesophageal reflux disease with esophagitis K21.0 and Nausea R11.0 [place] [address] [address] Sep, [facility] [address] [id number] Jul, Dental caries K02.9 and [place] al examination Z01.20 [facility] [address] [place] [id number] [place] [id number] Jul, [facility] [address] [address] Jun, [facility] [address] [id number] Jun, Dental examination Z01.20 [place] [address] [address] Jun, [place] [address] [address] Jun, [place] [address] [address] Jun, Right medial knee pain M25.5 61 ; Acute non-recurrent maxillary sinusitis J01.00 and Hypertension I10 [place] [address] [address] Apr, Type 2 diabetes mellitus wit hout complication E11.9 ; Neuropathy G62.9 ; Hypertension I10 ; Hypertriglyceridemia E78.1 ; Right medial knee pain M25.561 ; Morbid obesity due to excess calories E66.01 ; CAD (coronary artery disease) I25.10 ; Seasonal allergic rhinitis due to pollen J30.1 and Acute non- recurrent frontal sinusitis J01.[address] [address] Jan, Type 2 diabetes mellitus wit hout complication E11.9 ; Neuropathy G62.9 ; History of [place] (myocardial infarction) I25.2 ; Hypertension I10 ; Vitamin D deficiency E55.9 ; Hypertriglyceridemia E78.1 ; Right medial knee pain M25.561 and Morbid obesity due to excess calories E66.01 [place] [address] [address] November, [address] [address] November, Type 2 diabetes mellitus wit hout complication E11.9 ; General medical exam Z00.00 ; Neuropathy G62.9 ; History of [place] (myocardial infarction) I25.2 ; History of aortic aneurysm repair Z98.89 ; History of vitamin D deficiency Z86.39 ; Hypertension I10 and History of high cholesterol Z86.39 [place] [address] [address] Sep, Diabetes mellitus E11.9 ; Ne uropathy G62.9 ; Hypertension I10 ; CAD (coronary artery disease) I25.[address] [facility] [address] [facility] [id number] [address] [place] [address] Sep, [facility] [address] [facility] [id number] [address] [place] [address] Aug, [facility] [address] [facility] [id number] [address] [place] [address] Jun, [facility] [address] [facility] [id number] [address] [place] [address] Jun, Type 2 diabetes mellitus wit hout complication E11.9 ; General medical exam Z00.00 ; Neuropathy G62.9 ; History of [place] (myocardial infarction) I25.2 ; History of aortic aneurysm repair Z98.89 ; Flank pain R10.9 ; History of vitamin D deficiency Z86.39 ; Hypertension I10 and History of high cholesterol Z86.39 IMMUNIZATIONS No Known Immunizations SOCIAL HISTORY Never Assessed REASON FOR VISIT Patient would like an antibiotic for sinus infection, states he was informed rosales t if he came back for a nursing visit he could get the med. Per Joel Diehl, pt mae l need to go to [facility] for an appt. Patient sent to [facility] at this time. 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
--- OUTSIDE RECORDS SUMMARY | 2019-08-27 21:06 | XMS REPORT ---
Author Author Gerry SALINAS Organization [facility] Address [address] [place] [address] Care Team Providers Care Painter Assistant Name Role Phone LING SALINAS Unavailable PROBLEMS Type Condition ICD9-CM Code VYM29-WE Code Onset Dates Condition S tatus SNOMED Code Problem Morbid obesity due to excess calories E66.01 Active 202790711 Problem Hypertriglyceridemia E78.1 Active 503767327 Problem Right medial knee pain M25.561 Active 828119948 Problem Parotitis K11.20 Active 49131282 Problem Hyperlipidemia, unspecified hyperlipidemia type E7 8.5 Active 93365517 Problem Seasonal allergic rhinitis due to pollen J30.1 Active 90942740 Problem Vitamin D deficiency E55.9 Active 01334216 Problem Gastroesophageal reflux disease with esophagitis K 21.0 Active 938462735 Problem CAD (coronary artery disease) I25.10 Active 23535403 Problem History of aortic aneurysm repair Z98.89 Active 687333634 Problem History of [place] (myocardial infarction) I25.2 Active 968827476 Problem Neuropathy G62.9 Active 469952958 Problem Hypertension I10 Active 1740660 3 Problem Type 2 diabetes mellitus without complication E11. 9 Active 49846878 ALLERGIES Unknown Allergies SOCIAL HISTORY No smoking Hx information available PLAN OF CARE VITAL SIGNS MEDICATIONS Unknown Medications RESULTS No Results PROCEDURES No Known procedures IMMUNIZATIONS No Known Immunizations
--- OUTSIDE RECORDS SUMMARY | 2019-08-27 21:06 | XMS REPORT ---
Author Author Gerry SALINAS Organization [facility] Address [address] [place] [address] Care Team Providers Care Radiology Rn Name Role Phone RITA LING Unavailable PROBLEMS Type Condition ICD9-CM Code TUM02-BG Code Onset Dates Condition S tatus SNOMED Code Problem Type 2 diabetes mellitus without complication E11. 9 Active 15246801 Problem CAD (coronary artery disease) I25.10 Active 71113897 Problem Vitamin D deficiency E55.9 Active 15205951 Problem Hypertension I10 Active 0032178 3 Problem Neuropathy G62.9 Active 025809733 Problem Morbid (severe) obesity due to excess calories E66 .01 Active 427729689 Problem Body mass index (BMI) of 38.0-38.9 in adult Z68.38 Active 902363791 Problem Gastroesophageal reflux disease with esophagitis K 21.0 Active 025529750 Problem Seasonal allergic rhinitis due to pollen J30.1 Active 81556922 Problem Lumbosacral radiculopathy due to osteoarthritis of spine M47.27 Active 3886708 Problem Hyperlipidemia, unspecified hyperlipidemia type E7 8.5 Active 59312877 ALLERGIES No Information ENCOUNTERS Encounter Location Date Diagnosis [place] [address] [facility] [id number] [address] [place] [phone] Dec, [facility] [address] [facility] [id number] [address] [place] [phone] November, [place] [address] [facility] [id number] [address] [place] [phone] November, Right medial knee pain M25.5 61 [facility] [address] [facility] [id number] [address] [place] [address] Oct, Right medial knee pain M25.5 61 [place] [address] [facility] [id number] [address] [place] [phone] Sep, Type 2 diabetes mellitus wit hout [...] 38.0-38.9 in adult Z68.38 and Neuropathy G62.9 [place] [address] [id number] [address] [place] [phone] Aug, Right medial knee pain M25.5 61 [place] [address] [id number] [address] [place] [phone] Aug, Controlled substance agreeme nt signed Z79.899 [place] [address] [id number] [address] [place] [phone] Jul, Right medial knee pain M25.5 61 [facility] [address] [id number] [address] [place] [address] Jun, Right medial knee pain M25.5 61 [place] [address] [id number] [address] [place] [phone] May, Lumbosacral radiculopathy du e to osteoarthritis of spine M47.27 and Chondromalacia, right knee M94.261 [place] [address] [id number] [address] [place] [address] May, Right medial knee pain M25.5 61 and Seasonal allergic rhinitis due to pollen J30.1 [facility] [address] [id number] [address] [place] [phone] Apr, Right medial knee pain M25.5 61 and Gastroesophageal reflux disease with esophagitis K21.0 [facility] [address] [id number] [address] [place] [phone] Apr, Type 2 diabetes mellitus wit hout complication E11.9 ; Neuropathy G62.9 ; Hypertension I10 ; Vitamin D deficiency E55.9 ; Hypertriglyceridemia E78.1 ; Gastroesophageal reflux disease with esophagitis K21.0 ; CAD (coronary artery disease) I25.10 and Right medial knee pain M25.561 [place] [address] [address] [place] [id number] [address] [place] [address] Mar, Right medial knee pain M25.5 61 and Type 2 diabetes mellitus without complication E11.9 [place] [address] [address] Feb, Chondromalacia, right knee M 94.261 and Lumbosacral radiculopathy due to osteoarthritis of spine M47.27 [place] [address] [address] Feb, Parotitis K11.[address] [address] Feb, Type 2 diabetes mellitus wit hout complication E11.9 ; Neuropathy G62.9 ; Hypertension I10 ; Vitamin D deficiency E55.9 ; Hyperlipidemia, unspecified hyperlipidemia type E78.5 ; Morbid obesity due to excess calories E66.01 ; CAD (coronary artery disease) I25.10 ; Gastroesophageal reflux disease with esophagitis K21.0 ; Lymphadenopathy, periauricular R59.0 ; Right medial knee pain M25.561 and Parotitis K11.20 [place] [id number] [place] [address] Jan, [facility] [address] [place] [id number] [address] [place] [id number] Jan, Dental examination Z01.20 an d Dental caries K02.9 [place] [id number] [address] [place] [address] Jan, Vitamin D deficiency E55.9 [place] [address] [place] [id number] [address] [place] [phone] Jan, Right medial knee pain M25.5 61 [place] [address] [address] Jan, Type 2 diabetes mellitus wit hout complication E11.9 ; History of [place] (my[place] infarction) I25.2 ; Hypertension I10 ; Gastroesophageal reflux disease with esophagitis K21.0 ; Seasonal allergic rhinitis due to pollen J30.1 and Right medial knee pain M25.561 [place] [address] [address] Dec, Seasonal allergic rhinitis d ue to pollen J30.1 [place] [address] [address] November, Right medial knee pain M25.5 61 [place] [address] [address] November, Other chest pain R07.89 ; CA D (coronary artery disease) I25.10 ; Hypertension I10 and Hyperlipidemia, unspecified hyperlipidemia type E78.5 [place] [address] [address] November, Hypertension I10 [place] [address] [address] Oct, Hypertriglyceridemia E78.1 [place] [address] [address] 04 Oct, 2016 Type 2 diabetes mellitus wit hout complication E11.9 ; Neuropathy G62.9 ; History of [place] (my[place] infarction) I25.2 ; Hypertension I10 ; Vitamin D deficiency E55.9 ; Hypertriglyceridemia E78.1 ; Right medial knee pain M25.561 ; Gastroesophageal reflux disease with esophagitis K21.0 and Nausea R11.0 [place] [address] [address] Sep, [facility] [address] [facility] [id number] [address] [place] [phone] Jul, Dental caries K02.9 and [place] al examination Z01.20 [facility] [address] [id number] [place] [id number] Jul, [facility] [address] [facility] [id number] [address] [place] [phone] Jun, [facility] [address] [id number] [address] [place] [phone] Jun, Dental examination Z01.20 [facility] [address] [place] [id number] [address] [place] [phone] Jun, [facility] [address] [facility] [id number] [address] [place] [phone] Jun, [facility] [address] [place] [id number] [address] [place] [phone] Jun, Right medial knee pain M25.5 61 ; Acute non-recurrent maxillary sinusitis J01.00 and Hypertension I10 [place] [address] [place] [id number] [address] [place] [address] Apr, Type 2 diabetes mellitus wit hout complication E11.9 ; Neuropathy G62.9 ; Hypertension I10 ; Hypertriglyceridemia E78.1 ; Right medial knee pain M25.561 ; Morbid obesity due to excess calories E66.01 ; CAD (coronary artery disease) I25.10 ; Seasonal allergic rhinitis due to pollen J30.1 and Acute non- recurrent frontal sinusitis J01.10 [place] [address] [facility] [id number] [address] [place] [address] Jan, Type 2 diabetes mellitus wit hout complication E11.9 ; Neuropathy G62.9 ; History of [place] (my[place] infarction) I25.2 ; Hypertension I10 ; Vitamin D deficiency E55.9 ; Hypertriglyceridemia E78.1 ; Right medial knee pain M25.561 and Morbid obesity due to excess calories E66.01 [facility] [address] [facility] [id number] [address] [place] [phone] November, [facility] [address] [facility] [id number] [address] [place] [address] November, Type 2 diabetes mellitus wit hout complication E11.9 ; General medical exam Z00.00 ; Neuropathy G62.9 ; History of [place] (my[place] infarction[place] I25.2 ; History of aortic aneurysm repair Z98.89 ; History of vitamin D deficiency Z86.39 ; Hypertension I10 and History of high cholesterol Z86.39 [place] [address] [place] [id number] [address] [place] [address] 22 Sep, 2015 Diabetes mellitus E11.9 ; Ne uropathy G62.9 ; Hypertension I10 ; CAD (coronary artery disease) I25.10 and Hypertriglyceridemia E78.1 [place] [address] [address] 18 Sep, 2015 [place] [address] [address] Aug, [place] [address] [address] Jun, [place] [address] [address] Jun, Type 2 diabetes mellitus wit hout complication E11.9 ; General medical exam Z00.00 ; Neuropathy G62.9 ; History of [place] ([place] infarction) I25.2 ; History of aortic aneurysm repair Z98.89 ; Flank pain R10.9 ; History of vitamin D deficiency Z86.39 ; Hypertension I10 and History of high cholesterol Z86.39 IMMUNIZATIONS No Known Immunizations SOCIAL HISTORY Never Assessed REASON FOR VISIT Controlled/Refill Request PLAN OF CARE VITAL SIGNS MEDICATIONS Medication Instructions Dosage Frequency Start Date End Date Duration S tatus Ondansetron 4 MG Orally every 8 hrs 1 tablet on the tong ue and allow to dissolve 8h Oct, 10 days Active Hydrocodone-Acetaminophen 7.5-325 MG Orally every 6 hrs 1 tablet as needed 6h Apr, 28 days Active RESULTS No Results PROCEDURES No Known procedures INSTRUCTIONS MEDICATIONS ADMINISTERED No Known Medications MEDICAL (GENERAL) HISTORY Type Description Date Medical History Diabetes Type II Medical History Heart Stents x2 2010- Bare metal stent t o OM-2013 [facility] Medical History Hypertension Medical History 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 Medical History 4.2cm lymphnode right axilla Medical History 07/2013- 1.7 cm left renal cyst Medical History 2013-[facility]- EF 75%, normal LA pressures w / mild abnormal LV relaxation Medical History History of [place] (my[place] infarction) Medical History History of [place] (my[place] infarction) Surgical History Heart Stents x2 Surgical History Dissecting Aorta Hospitalization History dissecting aneurysm/ [place] Hospitalization History [place] 2013
--- OUTSIDE RECORDS SUMMARY | 2019-08-27 21:06 | XMS REPORT ---
Author Author Gerry HERNANDEZ Organization [facility] Address [address] [place] [address] Care Team Providers Care Devops Architect Name Role Phone MARE HERNANDEZ Unavailable PROBLEMS Type Condition ICD9-CM Code YQB43-ON Code Onset Dates Condition S tatus SNOMED Code Problem Type 2 diabetes mellitus without complication E11. 9 Active 47786902 Problem CAD (coronary artery disease) I25.10 Active 62806374 Problem Vitamin D deficiency E55.9 Active 60705105 Problem Hypertension I10 Active 6533068 3 Problem Neuropathy G62.9 Active 498010682 Problem Morbid (severe) obesity due to excess calories E66 .01 Active 930260468 Problem Body mass index (BMI) of 38.0-38.9 in adult Z68.38 Active 665085946 Problem Gastroesophageal reflux disease with esophagitis K 21.0 Active 500101908 Problem Seasonal allergic rhinitis due to pollen J30.1 Active 23975492 Problem Lumbosacral radiculopathy due to osteoarthritis of spine M47.27 Active 0098071 Problem Hyperlipidemia, unspecified hyperlipidemia type E7 8.5 Active 33722450 ALLERGIES No Information ENCOUNTERS Encounter Location Date Diagnosis [facility] [address] [address] [facility] [id number] [address] [place] [phone] Oct, Right medial knee pain M25.5 61 [facility] [address] [facility] [id number] [address] [place] [address] Sep, Type 2 diabetes mellitus wit hout [...] 38.0-38.9 in adult Z68.38 and Neuropathy G62.9 [place] [address] [address] Aug, Right medial knee pain M25.5 61 [place] [address] [address] Aug, Controlled substance agreeme nt signed Z79.899 [place] [address] [address] Jul, Right medial knee pain M25.5 61 [place] [address] [address] Jun, Right medial knee pain M25.5 61 [place] [address] [address] May, Lumbosacral radiculopathy du e to osteoarthritis of spine M47.27 and Chondromalacia, right knee M94.261 [place] [address] [address] May, Right medial knee pain M25.5 61 and Seasonal allergic rhinitis due to pollen J30.1 [place] [address] [address] Apr, Right medial knee pain M25.5 61 and Gastroesophageal reflux disease with esophagitis K21.0 [place] [address] [address] Apr, Type 2 diabetes mellitus wit hout complication E11.9 ; Neuropathy G62.9 ; Hypertension I10 ; Vitamin D deficiency E55.9 ; Hypertriglyceridemia E78.1 ; Gastroesophageal reflux disease with esophagitis K21.0 ; CAD (coronary artery disease) I25.10 and Right medial knee pain M25.561 [place] [address] [address] 15 Mar, 2017 Right medial knee pain M25.5 61 and Type 2 diabetes mellitus without complication E11.9 [place] [address] [place] [id number] [address] [place] [address] Feb, Chondromalacia, right knee M 94.261 and Lumbosacral radiculopathy due to osteoarthritis of spine M47.27 [place] [address] [place] [id number] [address] [place] [address] Feb, Parotitis K11.20 [place] [address] [address] Feb, Type 2 diabetes mellitus wit hout complication E11.9 ; Neuropathy G62.9 ; Hypertension I10 ; Vitamin D deficiency E55.9 ; Hyperlipidemia, unspecified hyperlipidemia type E78.5 ; Morbid obesity due to excess calories E66.01 ; CAD (coronary artery disease) I25.10 ; Gastroesophageal reflux disease with esophagitis K21.0 ; Lymphadenopathy, periauricular R59.0 ; Right medial knee pain M25.561 and Parotitis K11.20 [place] [address] [address] Jan, [facility] [address] [place] [id number] [place] [phone] Jan, Dental examination Z01.20 an d Dental caries K02.9 [place] [address] [place] [id number] [address] [place] [address] Jan, Vitamin D deficiency E55.9 [place] [address] [place] [id number] [address] [place] [address] Jan, Right medial knee pain M25.5 61 [place] [address] [address] Jan, Type 2 diabetes mellitus wit hout complication E11.9 ; History of [place] (my[place] infarction) I25.2 ; Hypertension I10 ; Gastroesophageal reflux disease with esophagitis K21.0 ; Seasonal allergic rhinitis due to pollen J30.1 and Right medial knee pain M25.561 [place] [address] [place] [address] Dec, Seasonal allergic rhinitis d ue to pollen J30.1 [place] [address] [address] November, Right medial knee pain M25.5 61 [place] [address] [address] November, Other chest pain R07.89 ; CA D (coronary artery disease) I25.10 ; Hypertension I10 and Hyperlipidemia, unspecified hyperlipidemia type E78.5 [place] [address] [address] November, Hypertension I10 [place] [address] [address] Oct, Hypertriglyceridemia E78.1 [place] [address] [address] Oct, Type 2 diabetes mellitus wit hout complication E11.9 ; Neuropathy G62.9 ; History of [place] (my[place] infarction) I25.2 ; Hypertension I10 ; Vitamin D deficiency E55.9 ; Hypertriglyceridemia E78.1 ; Right medial knee pain M25.561 ; Gastroesophageal reflux disease with esophagitis K21.0 and Nausea R11.0 [place] [address] [address] Sep, [facility] [address] [place] [id number] [place] [id number] Jul, Dental caries K02.9 and [place] al examination Z01.20 [facility] [id number] [place] [id number] Jul, [place] [address] [address] Jun, [facility] [address] [place] [id number] [place] [phone] Jun, Dental examination Z01.20 [place] [address] [place] [id number] [address] [place] [address] Jun, [place] [address] [address] Jun, [place] [address] [address] Jun, Right medial knee pain M25.5 61 ; Acute non-recurrent maxillary sinusitis J01.00 and Hypertension I10 [place] [address] [address] Apr, Type 2 diabetes mellitus wit hout complication E11.9 ; Neuropathy G62.9 ; Hypertension I10 ; Hypertriglyceridemia E78.1 ; Right medial knee pain M25.561 ; Morbid obesity due to excess calories E66.01 ; CAD (coronary artery disease) I25.10 ; Seasonal allergic rhinitis due to pollen J30.1 and Acute non- recurrent frontal sinusitis J01.10 [place] [address] [address] Jan, Type 2 diabetes mellitus wit hout complication E11.9 ; Neuropathy G62.9 ; History of [place] (my[place] infarction) I25.2 ; Hypertension I10 ; Vitamin D deficiency E55.9 ; Hypertriglyceridemia E78.1 ; Right medial knee pain M25.561 and Morbid obesity due to excess calories E66.01 [place] [address] [place] [id number] [address] [place] [address] November, [place] [address] [address] November, Type 2 diabetes mellitus wit hout complication E11.9 ; General medical exam Z00.00 ; Neuropathy G62.9 ; History of [place] (my[place] infarction) I25.2 ; History of aortic aneurysm repair Z98.89 ; History of vitamin D deficiency Z86.39 ; Hypertension I10 and History of high cholesterol Z86.39 [place] [address] [place] [id number] [address] [place] [address] Sep, Diabetes mellitus E11.9 ; Ne uropathy G62.9 ; Hypertension I10 ; CAD (coronary artery disease) I25.10 and Hypertriglyceridemia E78.1 [facility] [address] [facility] [id number] [address] [place] [address] Sep, [facility] [address] [facility] [id number] [address] [place] [phone] Aug, [facility] [address] [facility] [id number] [address] [place] [phone] Jun, [facility] [address] [facility] [id number] [address] [place] [address] Jun, Type 2 diabetes mellitus wit hout complication E11.9 ; General medical exam Z00.00 ; Neuropathy G62.9 ; History of [place] (my[place] infarction) I25.2 ; History of aortic [...] abnormal LV relaxation Medical History History of [place] (my[place]) Medical History History of [place]) Surgical History Heart Stents x2 Surgical History Dissecting Aorta Hospitalization History dissecting aneurysm/ [place] 2010 Hospitalization History [place] 2012
--- OUTSIDE RECORDS SUMMARY | 2019-08-27 21:06 | XMS REPORT ---
Author Author Gerry SALINAS Organization [facility] Address [address] [place] [address] Care Team Providers Care Mrb Engineer Name Role Phone LING SALINAS Unavailable PROBLEMS Type Condition ICD9-CM Code EEG08-ES Code Onset Dates Condition S tatus SNOMED Code Problem Type 2 diabetes mellitus without complication E11. 9 Active 45400217 Problem CAD (coronary artery disease) I25.10 Active 58020384 Problem Vitamin D deficiency E55.9 Active 10134073 Problem Hypertension I10 Active 0904115 3 Problem Neuropathy G62.9 Active 888790184 Problem Morbid (severe) obesity due to excess calories E66 .01 Active 896943275 Problem Body mass index (BMI) of 38.0-38.9 in adult Z68.38 Active 987805273 Problem Gastroesophageal reflux disease with esophagitis K 21.0 Active 597757564 Problem Seasonal allergic rhinitis due to pollen J30.1 Active 33671193 Problem Lumbosacral radiculopathy due to osteoarthritis of spine M47.27 Active 5486370 Problem Hyperlipidemia, unspecified hyperlipidemia type E7 8.5 Active 39563084 ALLERGIES No Information ENCOUNTERS Encounter Location Date Diagnosis [facility] [address] [facility] [id number] [address] [place] [phone] Oct, Right medial knee pain M25.5 61 [facility] [address] [facility] [id number] [address] [place] [phone] Sep, Type 2 diabetes mellitus wit hout [...] 38.0-38.9 in adult Z68.38 and Neuropathy G62.9 [place] [address] [address] Aug, Right medial knee pain M25.5 61 [place] [address] [address] Aug, Controlled substance agreeme nt signed Z79.899 [place] [address] [address] Jul, Right medial knee pain M25.5 61 [place] [address] [address] Jun, Right medial knee pain M25.5 61 [place] [address] [address] May, Lumbosacral radiculopathy du e to osteoarthritis of spine M47.27 and Chondromalacia, right knee M94.261 [place] [address] [address] May, Right medial knee pain M25.5 61 and Seasonal allergic rhinitis due to pollen J30.1 [place] [address] [address] 30 Apr, 2017 Right medial knee pain M25.5 61 and Gastroesophageal reflux disease with esophagitis K21.0 [place] [address] [address] 03 Apr, 2017 Type 2 diabetes mellitus wit hout complication E11.9 ; Neuropathy G62.9 ; Hypertension I10 ; Vitamin D deficiency E55.9 ; Hypertriglyceridemia E78.1 ; Gastroesophageal reflux disease with esophagitis K21.0 ; CAD (coronary artery disease) I25.10 and Right medial knee pain M25.561 [place] [address] [address] 15 Mar, 2017 Right medial knee pain M25.5 61 and Type 2 diabetes mellitus without complication E11.9 [place] [address] [place] [id number] [address] [place] [address] Feb, Chondromalacia, right knee M 94.261 and Lumbosacral radiculopathy due to osteoarthritis of spine M47.27 [place] [address] [place] [id number] [address] [place] [phone] Feb, Parotitis K11.20 [place] [address] [address] Feb, Type 2 diabetes mellitus wit hout complication E11.9 ; Neuropathy G62.9 ; Hypertension I10 ; Vitamin D deficiency E55.9 ; Hyperlipidemia, unspecified hyperlipidemia type E78.5 ; Morbid obesity due to excess calories E66.01 ; CAD (coronary artery disease) I25.10 ; Gastroesophageal reflux disease with esophagitis K21.0 ; Lymphadenopathy, periauricular R59.0 ; Right medial knee pain M25.561 and Parotitis K11.20 [place] [address] [place] [id number] [address] [place] [phone] Jan, [facility] [address] [place] [id number] [place] [id number] Jan, Dental examination Z01.20 an d Dental caries K02.9 [place] [address] [place] [id number] [address] [place] [phone] Jan, Vitamin D deficiency E55.9 [place] [address] [place] [id number] [address] [place] [phone] Jan, Right medial knee pain M25.5 61 [place] [address] [place] [id number] [address] [place] [phone] Jan, Type 2 diabetes mellitus wit hout complication E11.9 ; History of [place] (myocardial infarction) I25.2 ; Hypertension I10 ; Gastroesophageal reflux disease with esophagitis K21.0 ; Seasonal allergic rhinitis due to pollen J30.1 and Right medial knee pain M25.561 [place] [address] [place] [id number] [address] [place] [phone] Dec, Seasonal allergic rhinitis d ue to pollen J30.1 [place] [address] [address] November, Right medial knee pain M25.5 61 [place] [address] [address] November, Other chest pain R07.89 ; CA D (coronary artery disease) I25.10 ; Hypertension I10 and Hyperlipidemia, unspecified hyperlipidemia type E78.5 [place] [address] [address] November, Hypertension I10 [place] [address] [address] Oct, Hypertriglyceridemia E78.1 [place] [address] [address] Oct, Type 2 diabetes mellitus wit hout complication E11.9 ; Neuropathy G62.9 ; History of [place] (myocardial infarction) I25.2 ; Hypertension I10 ; Vitamin D deficiency E55.9 ; Hypertriglyceridemia E78.1 ; Right medial knee pain M25.561 ; Gastroesophageal reflux disease with esophagitis K21.0 and Nausea R11.0 [place] [address] [address] Sep, [facility] [address] [id number] Jul, Dental caries K02.9 and [place] al examination Z01.20 [facility] [address] [place] [id number] [place] [phone] Jul, [place] [address] [address] Jun, [facility] [address] [place] [id number] [place] [phone] Jun, Dental examination Z01.20 [place] [address] [place] [address] [place] [phone] Jun, [place] [address] [address] Jun, [place] [address] [address] Jun, Right medial knee pain M25.5 61 ; Acute non-recurrent maxillary sinusitis J01.00 and Hypertension I10 [place] [address] [address] 04 Apr, 2016 Type 2 diabetes mellitus wit hout complication E11.9 ; Neuropathy G62.9 ; Hypertension I10 ; Hypertriglyceridemia E78.1 ; Right medial knee pain M25.561 ; Morbid obesity due to excess calories E66.01 ; CAD (coronary artery disease) I25.10 ; Seasonal allergic rhinitis due to pollen J30.1 and Acute non- recurrent frontal sinusitis J01.10 [place] [address] [address] Jan, Type 2 diabetes mellitus wit hout complication E11.9 ; Neuropathy G62.9 ; History of [place] (myocardial infarction) I25.2 ; Hypertension I10 ; Vitamin D deficiency E55.9 ; Hypertriglyceridemia E78.1 ; Right medial knee pain M25.561 and Morbid obesity due to excess calories E66.01 [place] [address] [place] [id number] [place] [address] November, [place] [address] [address] November, Type 2 diabetes mellitus wit hout complication E11.9 ; General medical exam Z00.00 ; Neuropathy G62.9 ; History of [place] (myocardial infarction) I25.2 ; History of aortic aneurysm repair Z98.89 ; History of vitamin D deficiency Z86.39 ; Hypertension I10 and History of high cholesterol Z86.39 [place] [address] [place] [id number] [place] [address] Sep, Diabetes mellitus E11.9 ; Ne uropathy G62.9 ; Hypertension I10 ; CAD (coronary artery disease) I25.10 and Hypertriglyceridemia E78.1 [facility] [address] [facility] [id number] [address] [place] [phone] Sep, [facility] [address] [facility] [id number] [address] [place] [phone] Aug, [facility] [id number] [place] [address] Jun, [facility] [address] [place] [id number] [address] [place] [phone] Jun, Type 2 diabetes mellitus wit hout complication E11.9 ; General medical exam Z00.00 ; Neuropathy G62.9 ; History of [place] (myocardial infarction) I25.2 ; History of aortic aneurysm repair Z98.89 ; Flank pain R10.9 ; History of vitamin D deficiency Z86.39 ; Hypertension I10 and History of high cholesterol Z86.39 IMMUNIZATIONS No Known Immunizations SOCIAL HISTORY Never Assessed REASON FOR VISIT referral PLAN OF CARE VITAL SIGNS MEDICATIONS Unknown Medications RESULTS No Results PROCEDURES No Known procedures INSTRUCTIONS MEDICATIONS ADMINISTERED No Known Medications MEDICAL (GENERAL) HISTORY Type Description Date Medical History Diabetes Type II Medical History Heart Stents x2 2010- Bare metal stent t o OM-2013 [facility] Medical History Hypertension Medical History 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
--- OUTSIDE RECORDS SUMMARY | 2019-08-27 21:06 | XMS REPORT ---
Author Author Gerry MENDES Organization [facility] Address Unknown Care Team Providers Care Print Project Manager Name Role Phone CAIO MENDES Unavailable PROBLEMS Type Condition ICD9-CM Code [id number] Code Onset Dates Condition S tatus SNOMED Code Problem Vitamin D deficiency E55.9 Active 63419900 Problem Right medial knee pain M25.561 Active 555296297 Problem Hypertriglyceridemia E78.1 Active 952328176 Problem Lumbosacral radiculopathy due to osteoarthritis of spine M47.27 Active 1006148 Problem Parotitis K11.20 Active 88872011 Problem CAD (coronary artery disease) I25.10 Active 47540830 Problem Seasonal allergic rhinitis due to pollen J30.1 Active 65892755 Problem Hyperlipidemia, unspecified hyperlipidemia type E7 8.5 Active 77353421 Problem Gastroesophageal reflux disease with esophagitis K 21.0 Active 767625667 Problem Hypertension I10 Active 7806449 3 Problem History of [place] (myocardial infarction) I25.2 Active 382826524 Problem History of aortic aneurysm repair Z98.89 Active 851120214 Problem Type 2 diabetes mellitus without complication E11. 9 Active 68812535 Problem Neuropathy G62.9 Active 794748917 Problem Morbid obesity due to excess calories E66.01 Active 852261739 ALLERGIES Substance Reaction Event Type Date Status N.K.D.A. Unknown Non Drug Allergy Jul, Unknown SOCIAL HISTORY No smoking Hx information available PLAN OF CARE Activity Details Follow Up prn Reason:as needed VITAL SIGNS Height 67 in 2016-07-14 Blood pressure systolic 150 mmHg 2016-07-14 Blood pressure diastolic 86 mmHg 2016-07-14 MEDICATIONS Medication Instructions Dosage Frequency Start Date End Date Duration S tatus Amoxicillin 500 MG Orally 1 hour before dental treatment 4 capsules 6 Jul, 2016 1 days Active Lisinopril 10 mg Orally Once a day 1 tablet 24h Jun, Active Coreg 6.25 MG Orally 2 times a day 1 tablet 12h 90 days Active Tradjenta 5 mg Orally Once a day 1 tablet 24h 14 Phil, 2016 3 5 days Active Vitamin D (Ergocalciferol) 59267 UNIT Orally weekly 1 capsule Jun, Active Metformin HCl 1000 MG Orally Twice a day 1 tablet with meals 12h 90 days Active Fenofibrate 54 MG Orally Once a day 1 tablet with a meal 24h Active Nitroglycerin 0.4 MG Sublingual one tablet for ch est pain every 5 minutes x 3 doses then to the ER as directed Jun, A ctive Fluticasone Propionate 50 MCG/ACT Nasally Once a day 1 spray in each nostril 24h Apr, Active Plavix 75 MG Orally Once a day 1 tablet 24h Jun, Active Gabapentin 100 MG Orally Once a day at bedtime 1 capsule Jun, Active Cetirizine HCl 10 mg Orally Once a day 1 tablet 24h Apr, Active RESULTS No Results PROCEDURES Procedure Date Ordered Related Diagnosis Body Site INTRAORL-PERIAPICAL 1 FILM 29293 Jul 14, 2016 EXTRAC ERUPTED TOOTH/EXPOSED ROOT Jul 14, 2016 EXTRAC ERUPTED TOOTH/EXPOSED ROOT Jul 14, 2016 IMMUNIZATIONS No Known Immunizations
--- OUTSIDE RECORDS SUMMARY | 2019-08-27 21:06 | XMS REPORT ---
Author Author Gerry SALINAS Organization [facility] Address [address] [place] [address] Care Team Providers Care Tunnel Heading Supervisor Name Role Phone RITA LING Unavailable PROBLEMS Type Condition ICD9-CM Code RSE97-FQ Code Onset Dates Condition S tatus SNOMED Code Problem Vitamin D deficiency E55.9 Active 09051815 Problem Right medial knee pain M25.561 Active 360704340 Problem Hypertriglyceridemia E78.1 Active 924689694 Problem Lumbosacral radiculopathy due to osteoarthritis of spine M47.27 Active 7987175 Problem Parotitis K11.20 Active 02976901 Problem CAD (coronary artery disease) I25.10 Active 68650872 Problem Seasonal allergic rhinitis due to pollen J30.1 Active 21660117 Problem Hyperlipidemia, unspecified hyperlipidemia type E7 8.5 Active 49825710 Problem Gastroesophageal reflux disease with esophagitis K 21.0 Active 195945366 Problem Hypertension I10 Active 1530477 3 Problem History of [place] (myocardial infarction) I25.2 Active 865528208 Problem History of aortic aneurysm repair Z98.89 Active 729516738 Problem Type 2 diabetes mellitus without complication E11. 9 Active 60387469 Problem Neuropathy G62.9 Active 889181864 Problem Morbid obesity due to excess calories E66.01 Active 369768998 ALLERGIES No Information SOCIAL HISTORY Never Assessed PLAN OF CARE VITAL SIGNS MEDICATIONS Medication Instructions Dosage Frequency Start Date End Date Duration S tatus Hydrocodone-Acetaminophen 7.5-325 MG Orally every 6 hrs 1 tablet as needed 6h November, 28 days Active RESULTS No Results PROCEDURES No Known procedures IMMUNIZATIONS No Known Immunizations MEDICAL (GENERAL) HISTORY Type Description Date Medical History Diabetes Type II Medical History Heart Stents x2 2010- Bare metal stent t o OM-2013 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
--- OUTSIDE RECORDS SUMMARY | 2019-08-27 21:06 | XMS REPORT ---
Author Author Gerry SALINAS Organization [facility] Address [address] [place] [address] Care Team Providers Care Comfort Advisor Name Role Phone RITA LING Unavailable PROBLEMS Type Condition ICD9-CM Code [id number] Code Onset Dates Condition S tatus SNOMED Code Problem Type 2 diabetes mellitus without complication E11. 9 Active 58211014 Problem CAD (coronary artery disease) I25.10 Active 92416779 Problem Vitamin D deficiency E55.9 Active 29670994 Problem Hypertension I10 Active 6246565 3 Problem Neuropathy G62.9 Active 220616571 Problem Morbid (severe) obesity due to excess calories E66 .01 Active 883446140 Problem Body mass index (BMI) of 38.0-38.9 in adult Z68.38 Active 791309017 Problem Gastroesophageal reflux disease with esophagitis K 21.0 Active 703776966 Problem Seasonal allergic rhinitis due to pollen J30.1 Active 87983741 Problem Lumbosacral radiculopathy due to osteoarthritis of spine M47.27 Active 3204420 Problem Hyperlipidemia, unspecified hyperlipidemia type E7 8.5 Active 45193373 ALLERGIES No Information ENCOUNTERS Encounter Location Date Diagnosis [place] [address] [facility] [id number] [address] [place] [phone] Dec, [facility] [address] [facility] [id number] [address] [place] [phone] November, [place] [facility] [id number] [address] [place] [phone] November, Right medial knee pain M25.5 61 [facility] [address] [facility] [id number] [address] [place] [phone] Oct, Right medial knee pain M25.5 61 [place] [address] N [facility] [id number] [address] [place] [phone] Sep, Type 2 diabetes mellitus wit hout [...] 38.0-38.9 in adult Z68.38 and Neuropathy G62.9 [place] [address] [id number] [address] [place] [phone] Aug, Right medial knee pain M25.5 61 [place] [address] [id number] [address] [place] [id number] Aug, Controlled substance agreeme nt signed Z79.899 [place] [address] [id number] [address] [place] [phone] Jul, Right medial knee pain M25.5 61 [facility] [address] [id number] [address] [place] [phone] Jun, Right medial knee pain M25.5 61 [place] [address] [id number] [address] [place] [address] May, Lumbosacral radiculopathy du e to osteoarthritis of spine M47.27 and Chondromalacia, right knee M94.261 [place] [address] [id number] [address] [place] [address] May, Right medial knee pain M25.5 61 and Seasonal allergic rhinitis due to pollen J30.1 [facility] [address] [id number] [address] [place] [address] Apr, Right medial knee pain M25.5 61 and Gastroesophageal reflux disease with esophagitis K21.0 [facility] [address] [id number] [address] [place] [address] Apr, Type 2 diabetes mellitus wit hout complication E11.9 ; Neuropathy G62.9 ; Hypertension I10 ; Vitamin D deficiency E55.9 ; Hypertriglyceridemia E78.1 ; Gastroesophageal reflux disease with esophagitis K21.0 ; CAD (coronary artery disease) I25.10 and Right medial knee pain M25.561 [place] [address] [address] [place] [id number] [address] [place] [address] Mar, Right medial knee pain M25.5 61 and Type 2 diabetes mellitus without complication E11.9 [place] [address] [address] Feb, Chondromalacia, right knee M 94.261 and Lumbosacral radiculopathy due to osteoarthritis of spine M47.27 [place] [address] [address] Feb, Parotitis K11.[address] [address] Feb, Type 2 diabetes mellitus wit hout complication E11.9 ; Neuropathy G62.9 ; Hypertension I10 ; Vitamin D deficiency E55.9 ; Hyperlipidemia, unspecified hyperlipidemia type E78.5 ; Morbid obesity due to excess calories E66.01 ; CAD (coronary artery disease) I25.10 ; Gastroesophageal reflux disease with esophagitis K21.0 ; Lymphadenopathy, periauricular R59.0 ; Right medial knee pain M25.561 and Parotitis K11.20 [place] [id number] [place] [address] Jan, [facility] [address] [place] [id number] [address] [place] [phone] Jan, Dental examination Z01.20 an d Dental caries K02.9 [place] [id number] [address] [place] [address] Jan, Vitamin D deficiency E55.9 [place] [address] [place] [id number] [address] [place] [address] Jan, Right medial knee pain M25.5 61 [place] [address] [address] Jan, Type 2 diabetes mellitus wit hout complication E11.9 ; History of [place] (myocardial infarction) I25.2 ; Hypertension I10 ; Gastroesophageal reflux disease with esophagitis K21.0 ; Seasonal allergic rhinitis due to pollen J30.1 and Right medial knee pain M25.561 [place] [address] [address] Dec, Seasonal allergic rhinitis d ue to pollen J30.1 [place] [address] [address] November, Right medial knee pain M25.5 61 [place] [address] [address] November, Other chest pain R07.89 ; CA D (coronary artery disease) I25.10 ; Hypertension I10 and Hyperlipidemia, unspecified hyperlipidemia type E78.5 [place] [address] [address] November, Hypertension I10 [place] [address] [address] Oct, Hypertriglyceridemia E78.1 [place] [address] [address] 04 Oct, 2016 Type 2 diabetes mellitus wit hout complication E11.9 ; Neuropathy G62.9 ; History of DC (myocardial infarction) I25.2 ; Hypertension I10 ; Vitamin D deficiency E55.9 ; Hypertriglyceridemia E78.1 ; Right medial knee pain M25.561 ; Gastroesophageal reflux disease with esophagitis K21.0 and Nausea R11.0 [place] [address] [address] Sep, [facility] [address] [facility] [place] [id number] [address] [place] [id number] Jul, Dental caries K02.9 and [place] al examination Z01.20 [facility] [address] [id number] [place] [phone] Jul, [facility] [address] [facility] [id number] [address] [place] [phone] Jun, [facility] [address] [id number] [address] [place] [place] [id number] Jun, Dental examination Z01.20 [facility] [address] [place] [id number] [address] [place] [phone] Jun, [facility] [address] [facility] [id number] [address] [place] [phone] Jun, [facility] [address] [place] [id number] [address] [place] [address] Jun, Right medial knee pain M25.5 61 ; Acute non-recurrent maxillary sinusitis J01.00 and Hypertension I10 [place] [address] [place] [id number] [address] [place] [address] Apr, Type 2 diabetes mellitus wit hout complication E11.9 ; Neuropathy G62.9 ; Hypertension I10 ; Hypertriglyceridemia E78.1 ; Right medial knee pain M25.561 ; Morbid obesity due to excess calories E66.01 ; CAD (coronary artery disease) I25.10 ; Seasonal allergic rhinitis due to pollen J30.1 and Acute non- recurrent frontal sinusitis J01.10 [place] [address] [facility] [id number] [address] [place] [phone] Jan, Type 2 diabetes mellitus wit hout complication E11.9 ; Neuropathy G62.9 ; History of DC (myocardial infarction) I25.2 ; Hypertension I10 ; Vitamin D deficiency E55.9 ; Hypertriglyceridemia E78.1 ; Right medial knee pain M25.561 and Morbid obesity due to excess calories E66.01 [facility] [address] [facility] [id number] [address] [place] [phone] November, [facility] [address] [facility] [id number] [address] [place] [address] November, Type 2 diabetes mellitus wit hout complication E11.9 ; General medical exam Z00.00 ; Neuropathy G62.9 ; History of DC (myocardial infarction) I25.2 ; History of aortic aneurysm repair Z98.89 ; History of vitamin D deficiency Z86.39 ; Hypertension I10 and History of high cholesterol Z86.39 [place] [place] [id number] [address] [place] [id number] 22 Sep, 2015 Diabetes mellitus E11.9 ; Ne uropathy G62.9 ; Hypertension I10 ; CAD (coronary artery disease) I25.10 and Hypertriglyceridemia E78.1 [place] [address] [address] 18 Sep, 2015 [place] [address] [address] Aug, [place] [address] [address] Jun, [place] [address] [address] Jun, Type 2 diabetes mellitus wit hout complication E11.9 ; General medical exam Z00.00 ; Neuropathy G62.9 ; History of DC (myocardial infarction) I25.2 ; History of aortic aneurysm repair Z98.89 ; Flank pain R10.9 ; History of vitamin D deficiency Z86.39 ; Hypertension I10 and History of high cholesterol Z86.39 IMMUNIZATIONS No Known Immunizations SOCIAL HISTORY Never Assessed REASON FOR VISIT Controlled Refill Request PLAN OF CARE VITAL SIGNS MEDICATIONS Unknown Medications RESULTS No Results PROCEDURES No Known procedures INSTRUCTIONS MEDICATIONS ADMINISTERED No Known Medications MEDICAL (GENERAL) HISTORY Type Description Date Medical History Diabetes Type II Medical History Heart Stents x2 2010- Bare metal stent t o OM-2013 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
--- OUTSIDE RECORDS SUMMARY | 2019-08-27 21:06 | XMS REPORT ---
Author Author Gerry SALINAS Organization [facility] Address [address] [place] [address] Care Team Providers Care Repair Mechanic Name Role Phone LING SALINAS Unavailable PROBLEMS Type Condition ICD9-CM Code [id number] Code Onset Dates Condition S tatus SNOMED Code Problem Type 2 diabetes mellitus without complication E11. 9 Active 68258197 Problem CAD (coronary artery disease) I25.10 Active 42016534 Problem Vitamin D deficiency E55.9 Active 72220293 Problem Hypertension I10 Active 8731709 3 Problem Neuropathy G62.9 Active 671308738 Problem Morbid (severe) obesity due to excess calories E66 .01 Active 124471177 Problem Body mass index (BMI) of 38.0-38.9 in adult Z68.38 Active 269426403 Problem Gastroesophageal reflux disease with esophagitis K 21.0 Active 336442706 Problem Seasonal allergic rhinitis due to pollen J30.1 Active 73580726 Problem Lumbosacral radiculopathy due to osteoarthritis of spine M47.27 Active 1614151 Problem Hyperlipidemia, unspecified hyperlipidemia type E7 8.5 Active 03847571 ALLERGIES No Information ENCOUNTERS Encounter Location Date Diagnosis [facility] [address] [facility] [id number] [address] [place] [phone] Feb, [facility] [address] [place] [id number] [address] [place] [address] Jan, Right medial knee pain M25.5 61 [facility] [address] [place] [id number] [address] [place] [address] Jan, [facility] [address] [facility] [id number] [address] [place] [phone] Dec, [facility] [address] [facility] [id number] [address] [place] [address] Dec, Acute maxillary sinusitis, r ecurrence not specified J01.00 [facility] [address] [id number] [address] [place] [address] Dec, [facility] [address] [id number] [address] [place] [phone] 07 Dec, 2017 Right medial knee pain M25.5 61 [place] [address] [id number] [address] [place] [address] November, [place] [address] [id number] [address] [place] [address] November, Right medial knee pain M25.5 61 [place] [address] [id number] [address] [place] [address] Oct, Right medial knee pain M25.5 61 [place] [address] [id number] [address] [place] [address] Sep, Type 2 diabetes mellitus wit hout [...] 38.0-38.9 in adult Z68.38 and Neuropathy G62.9 [place] [address] [id number] [address] [place] [address] Aug, Right medial knee pain M25.5 61 [place] [address] [id number] [address] [place] [address] Aug, Controlled substance agreeme nt signed Z79.899 [place] [address] [id number] [address] [place] [address] Jul, Right medial knee pain M25.5 61 [place] [address] [id number] [address] [place] [address] Jun, Right medial knee pain M25.5 61 [place] [address] [address] May, Lumbosacral radiculopathy du e to osteoarthritis of spine M47.27 and Chondromalacia, right knee M94.261 [place] [address] [address] May, Right medial knee pain M25.5 61 and Seasonal allergic rhinitis due to pollen J30.1 [place] [address] [address] Apr, Right medial knee pain M25.5 61 and Gastroesophageal reflux disease with esophagitis K21.0 [place] [address] [address] Apr, Type 2 diabetes mellitus wit hout complication E11.9 ; Neuropathy G62.9 ; Hypertension I10 ; Vitamin D deficiency E55.9 ; Hypertriglyceridemia E78.1 ; Gastroesophageal reflux disease with esophagitis K21.0 ; CAD (coronary artery disease) I25.10 and Right medial knee pain M25.561 [place] [address] [place] [id number] [address] [place] [address] Mar, Right medial knee pain M25.5 61 and Type 2 diabetes mellitus without complication E11.9 [place] [id number] [place] [address] Feb, Chondromalacia, right knee M 94.261 and Lumbosacral radiculopathy due to osteoarthritis of spine M47.27 [place] [address] [place] [id number] [address] [place] [address] Feb, Parotitis K11.20 [place] [address] [place] [id number] [address] [place] [address] Feb, Type 2 diabetes mellitus wit hout complication E11.9 ; Neuropathy G62.9 ; Hypertension I10 ; Vitamin D deficiency E55.9 ; Hyperlipidemia, unspecified hyperlipidemia type E78.5 ; Morbid obesity due to excess calories E66.01 ; CAD (coronary artery disease) I25.10 ; Gastroesophageal reflux disease with esophagitis K21.0 ; Lymphadenopathy, periauricular R59.0 ; Right medial knee pain M25.561 and Parotitis K11.20 [facility] [address] [place] [id number] [address] [place] [address] Jan, [facility] [address] [place] [id number] [address] [place] [id number] Jan, Dental examination Z01.20 an d Dental caries K02.[address] [address] Jan, Vitamin D deficiency E55.9 [place] [address] [address] Jan, Right medial knee pain M25.5 61 [place] [address] [address] Jan, Type 2 diabetes mellitus wit hout complication E11.9 ; History of ME (myocardial infarction) I25.2 ; Hypertension I10 ; Gastroesophageal reflux disease with esophagitis K21.0 ; Seasonal allergic rhinitis due to pollen J30.1 and Right medial knee pain M25.561 [place] [address] [address] Dec, Seasonal allergic rhinitis d ue to pollen J30.1 [place] [address] [address] November, Right medial knee pain M25.5 61 [place] [address] [address] November, Other chest pain R07.89 ; CA D (coronary artery disease) I25.10 ; Hypertension I10 and Hyperlipidemia, unspecified hyperlipidemia type E78.5 [place] [address] [place] [id number] [address] [place] [address] 03 May, 2017 Hypertension I10 [facility] [address] [facility] [id number] [address] [place] [address] Oct, Hypertriglyceridemia E78.1 [facility] [address] [facility] [id number] [place] [phone] Oct, Type 2 diabetes mellitus wit hout complication E11.9 ; Neuropathy G62.9 ; History of ME (myocardial infarction) I25.2 ; Hypertension I10 ; Vitamin D deficiency E55.9 ; Hypertriglyceridemia E78.1 ; Right medial knee pain M25.561 ; Gastroesophageal reflux disease with esophagitis K21.0 and Nausea R11.0 [facility] [address] [facility] [id number] [address] [place] [address] Sep, [facility] [address] [place] [id number] [place] [id number] Jul, Dental caries K02.9 and [place] examination Z01.20 [facility] [address] [place] [id number] Jul, [facility] [address] [place] [id number] [place] [address] Jun, [facility] [address] [place] [id number] [place] [phone] Jun, Dental examination Z01.20 [facility] [address] [place] [id number] [place] [phone] Jun, [facility] [address] [place] [id number] [address] [place] [address] Jun, [facility] [address] [facility] [id number] [address] [place] [address] Jun, Right medial knee pain M25.5 61 ; Acute non-recurrent maxillary sinusitis J01.00 and Hypertension I10 [facility] [address] [facility] [id number] [address] [place] [address] Apr, Type 2 diabetes mellitus wit hout complication E11.9 ; Neuropathy G62.9 ; Hypertension I10 ; Hypertriglyceridemia E78.1 ; Right medial knee pain M25.561 ; Morbid obesity due to excess calories E66.01 ; CAD (coronary artery disease) I25.10 ; Seasonal allergic rhinitis due to pollen J30.1 and Acute non- recurrent frontal sinusitis J01.10 [place] [address] [place] [id number] [address] [place] [address] 14 Jan, 2016 Type 2 diabetes mellitus wit hout complication E11.9 ; Neuropathy G62.9 ; History of ME (myocardial infarction) I25.2 ; Hypertension I10 ; Vitamin D deficiency E55.9 ; Hypertriglyceridemia E78.1 ; Right medial knee pain M25.561 and Morbid obesity due to excess calories E66.01 [place] [address] [address] November, [place] [address] [address] November, Type 2 diabetes mellitus wit hout complication E11.9 ; General medical exam Z00.00 ; Neuropathy G62.9 ; History of ME (myocardial infarction) I25.2 ; History of aortic aneurysm repair Z98.89 ; History of vitamin D deficiency Z86.39 ; Hypertension I10 and History of high cholesterol Z86.39 [place] [address] [address] Sep, Diabetes mellitus E11.9 ; Ne uropathy G62.9 ; Hypertension I10 ; CAD (coronary artery disease) I25.10 and Hypertriglyceridemia E78.1 [place] [address] [address] Sep, [place] [address] [address] Aug, [place] [address] [address] Jun, [place] [address] [address] Jun, Type 2 diabetes mellitus wit hout [...] Never Assessed REASON FOR VISIT Controlled refill request PLAN OF CARE VITAL SIGNS MEDICATIONS Medication Instructions Dosage Frequency Start Date End Date Duration S maryjane Hydrocodone-Acetaminophen 7.5-325 MG Orally every 6 hrs 1 tablet as needed 6h Oct, 28 days Active RESULTS No Results PROCEDURES No Known procedures INSTRUCTIONS MEDICATIONS ADMINISTERED No Known Medications MEDICAL (GENERAL) HISTORY Type Description Date Medical History Diabetes Type II Medical History Heart Stents x2 2010- Bare metal stent t o OM-2013 [facility] Medical History Hypertension Medical History 2010- [place] [...]
--- OUTSIDE RECORDS SUMMARY | 2019-08-27 21:06 | XMS REPORT ---
Author Author Gerry SALINAS Organization [facility] Address [address] [place] [address] Care Team Providers Care Retail Cashier Associate Name Role Phone LING SALNIAS Unavailable PROBLEMS Type Condition ICD9-CM Code [id number] Code Onset Dates Condition S tatus SNOMED Code Problem Vitamin D deficiency E55.9 Active 23432553 Problem Right medial knee pain M25.561 Active 038761022 Problem Hypertriglyceridemia E78.1 Active 777323718 Problem Lumbosacral radiculopathy due to osteoarthritis of spine M47.27 Active 8583574 Problem Parotitis K11.20 Active 33601722 Problem CAD (coronary artery disease) I25.10 Active 56273503 Problem Seasonal allergic rhinitis due to pollen J30.1 Active 88133985 Problem Hyperlipidemia, unspecified hyperlipidemia type E7 8.5 Active 66880361 Problem Gastroesophageal reflux disease with esophagitis K 21.0 Active 192259313 Problem Hypertension I10 Active 1526946 3 Problem History of [place] (myocardial infarction) I25.2 Active 530173689 Problem History of aortic aneurysm repair Z98.89 Active 939562635 Problem Type 2 diabetes mellitus without complication E11. 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
--- OUTSIDE RECORDS SUMMARY | 2019-08-27 21:06 | XMS REPORT ---
Author Author Gerry SALINAS Organization [facility] Address [address] [place] [address] Care Team Providers Care Dental Ceramist Assistant Name Role Phone LING SALINAS Unavailable PROBLEMS Type Condition ICD9-CM Code DNA46-VN Code Onset Dates Condition S tatus SNOMED Code Problem Type 2 diabetes mellitus without complication E11. 9 Active 63752036 Problem CAD (coronary artery disease) I25.10 Active 30929581 Problem Vitamin D deficiency E55.9 Active 58710440 Problem Hypertension I10 Active 4749212 3 Problem Neuropathy G62.9 Active 359508139 Problem Morbid (severe) obesity due to excess calories E66 .01 Active 309993384 Problem Body mass index (BMI) of 38.0-38.9 in adult Z68.38 Active 426037302 Problem Gastroesophageal reflux disease with esophagitis K 21.0 Active 790571488 Problem Seasonal allergic rhinitis due to pollen J30.1 Active 04209306 Problem Lumbosacral radiculopathy due to osteoarthritis of spine M47.27 Active 6636708 Problem Hyperlipidemia, unspecified hyperlipidemia type E7 8.5 Active 86334592 ALLERGIES No Known Allergies ENCOUNTERS Encounter Location Date Diagnosis [facility] [address] [facility] [id number] [address] [place] [phone] Oct, Right medial knee pain M25.5 61 [facility] [address] [facility] [id number] [address] [place] [phone] Sep, Type 2 diabetes mellitus wit hout [...] adult Z68.38 and Neuropathy G62.9 [place] [address] [address] Aug, Right medial knee pain M25.5 61 [place] [address] [address] Aug, Controlled substance agreeme nt signed Z79.899 [place] [address] [address] Jul, Right medial knee pain M25.5 61 [place] [address] [address] Jun, Right medial knee pain M25.5 61 [place] [address] [address] May, Lumbosacral radiculopathy du e to osteoarthritis of spine M47.27 and Chondromalacia, right knee M94.261 [place] [address] [address] May, Right medial knee pain M25.5 61 and Seasonal allergic rhinitis due to pollen J30.1 [place] [address] [address] Apr, Right medial knee pain M25.5 61 and Gastroesophageal reflux disease with esophagitis K21.0 [place] [address] [address] Apr, Type 2 diabetes mellitus wit hout complication E11.9 ; Neuropathy G62.9 ; Hypertension I10 ; Vitamin D deficiency E55.9 ; Hypertriglyceridemia E78.1 ; Gastroesophageal reflux disease with esophagitis K21.0 ; CAD (coronary artery disease) I25.10 and Right medial knee pain M25.561 [place] [address] [address] 15 Mar, 2017 Right medial knee pain M25.5 61 and Type 2 diabetes mellitus without complication E11.9 [place] [address] [place] [address] Feb, Chondromalacia, right knee M 94.261 and Lumbosacral radiculopathy due to osteoarthritis of spine M47.27 [place] [address] [place] [id number] [address] [place] [address] Feb, Parotitis K11.20 [place] [address] [address] Feb, Type 2 diabetes mellitus wit hout complication E11.9 ; Neuropathy G62.9 ; Hypertension I10 ; Vitamin D deficiency E55.9 ; Hyperlipidemia, unspecified hyperlipidemia type E78.5 ; Morbid obesity due to excess calories E66.01 ; CAD (coronary artery disease) I25.10 ; Gastroesophageal reflux disease with esophagitis K21.0 ; Lymphadenopathy, periauricular R59.0 ; Right medial knee pain M25.561 and Parotitis K11.20 [place] [address] [place] [id number] [place] [address] Jan, [facility] [id number] [place] [phone] Jan, Dental examination Z01.20 an d Dental caries K02.9 [place] [address] [place] [id number] [place] [address] Jan, Vitamin D deficiency E55.9 [place] [address] [place] [id number] [place] [address] Jan, Right medial knee pain M25.5 61 [place] [address] [address] Jan, Type 2 diabetes mellitus wit hout complication E11.9 ; History of [place] (myocardial infarction) I25.2 ; Hypertension I10 ; Gastroesophageal reflux disease with esophagitis K21.0 ; Seasonal allergic rhinitis due to pollen J30.1 and Right medial knee pain M25.561 [place] [address] [address] Dec, Seasonal allergic rhinitis d ue to pollen J30.1 [place] [address] [address] November, Right medial knee pain M25.5 61 [place] [address] [address] November, Other chest pain R07.89 ; CA D (coronary artery disease) I25.10 ; Hypertension I10 and Hyperlipidemia, unspecified hyperlipidemia type E78.5 [place] [address] [address] November, Hypertension I10 [place] [address] [address] Oct, Hypertriglyceridemia E78.1 [place] [address] [address] Oct, Type 2 diabetes mellitus wit hout complication E11.9 ; Neuropathy G62.9 ; History of [place] (myocardial infarction) I25.2 ; Hypertension I10 ; Vitamin D deficiency E55.9 ; Hypertriglyceridemia E78.1 ; Right medial knee pain M25.561 ; Gastroesophageal reflux disease with esophagitis K21.0 and Nausea R11.0 [place] [address] [address] Sep, [facility] [address] [place] [id number] [place] [phone] Jul, Dental caries K02.9 and Dickenson al examination Z01.20 [facility] [address] [place] [phone] Jul, [place] [address] [address] Jun, [facility] [address] [place] [id number] [place] [phone] Jun, Dental examination Z01.20 [place] [address] [place] [id number] [place] [address] Jun, [place] [address] [address] Jun, [place] [address] [address] Jun, Right medial knee pain M25.5 61 ; Acute non-recurrent maxillary sinusitis J01.00 and Hypertension I10 [place] [address] [address] 04 Apr, 2016 Type 2 diabetes mellitus wit hout complication E11.9 ; Neuropathy G62.9 ; Hypertension I10 ; Hypertriglyceridemia E78.1 ; Right medial knee pain M25.561 ; Morbid obesity due to excess calories E66.01 ; CAD (coronary artery disease) I25.10 ; Seasonal allergic rhinitis due to pollen J30.1 and Acute non- recurrent frontal sinusitis J01.10 [place] [address] [address] Jan, Type 2 diabetes mellitus wit hout complication E11.9 ; Neuropathy G62.9 ; History of [place] (myocardial infarction) I25.2 ; Hypertension I10 ; Vitamin D deficiency E55.9 ; Hypertriglyceridemia E78.1 ; Right medial knee pain M25.561 and Morbid obesity due to excess calories E66.01 [place] [address] [place] [id number] [place] [address] November, [place] [address] [address] November, Type 2 diabetes mellitus wit hout complication E11.9 ; General medical exam Z00.00 ; Neuropathy G62.9 ; History of [place] (myocardial infarction) I25.2 ; History of aortic aneurysm repair Z98.89 ; History of vitamin D deficiency Z86.39 ; Hypertension I10 and History of high cholesterol Z86.39 [place] [address] [place] [id number] [place] [address] Sep, Diabetes mellitus E11.9 ; Ne uropathy G62.9 ; Hypertension I10 ; CAD (coronary artery disease) I25.10 and Hypertriglyceridemia E78.1 [facility] [address] [facility] [id number] [address] [place] [phone] Sep, [facility] [address] [facility] [id number] [address] [place] [phone] Aug, [facility] [address] [facility] [id number] [address] [place] [phone] Jun, [facility] [address] [facility] [id number] [address] [place] [address] Jun, Type 2 diabetes mellitus wit hout complication E11.9 ; General medical exam Z00.00 ; Neuropathy G62.9 ; History of [place] (myocardial infarction) I25.2 ; History of aortic aneurysm repair Z98.89 ; Flank pain R10.9 ; History of vitamin D deficiency Z86.39 ; Hypertension I10 and History of high cholesterol Z86.39 IMMUNIZATIONS No Known Immunizations SOCIAL HISTORY Never Assessed REASON FOR VISIT Diabetes f/u -FADY Garrido, A1C PLAN OF CARE Activity Details Follow Up 3 Months Reason:CHM/DM VITAL SIGNS Height 67 in 2017-02-20 Weight 244 lbs 2017-02-20 Temperature 98.2 degrees Fahrenheit 2017-02-20 Heart Rate 80 bpm 2017-02-20 Respiratory Rate 20 2017-02-20 BMI 38.21 kg/m2 2017-02-20 Blood pressure systolic 124 mmHg 2017-02-20 Blood pressure diastolic 86 mmHg 2017-02-20 MEDICATIONS Medication Instructions Dosage Frequency Start Date End Date Duration S tatus Coreg 6.25 MG Orally 2 times a day 1 tablet 12h 90 days Active Fluticasone Propionate 50 MCG/ACT Nasally Once a day 1 spray in each nostril 24h Apr, Active Plavix 75 MG Orally Once a day 1 tablet 24h Jun, 90 days Active Atorvastatin Calcium 10 mg Orally Once a day 1 tablet 24h 2016 90 days Active Nitroglycerin 0.4 MG Sublingual one tablet for ch est pain every 5 minutes x 3 doses then to the ER as directed Jun, A ctive Metformin HCl 1000 MG Orally Twice a day 1 tablet with meals 12h 90 days Active Tradjenta 5 mg Orally Once a day 1 tablet 24h 14 Jan, 2016 9 0 days Active Lisinopril 10 mg Orally Once a day 1 tablet 24h 11 Jun, 2015 90 days Active Pantoprazole Sodium 20 mg Orally Once a day 1 tablets 24h Oct 90 days Active Ondansetron 4 MG Orally every 8 hrs 1 tablet on the tong ue and allow to dissolve 8h Oct, 10 days Active Cetirizine HCl 10 mg Orally Once a day 1 tablet 24h Apr, Active Gabapentin 100 mg Orally Once a day at bedtime 1 capsule Jun, 90 days Active Ciprofloxacin HCl 500 mg Orally Twice a day 1 tablet 12h Feb, Feb, 10 day(s) Active Glucocard Expression Test - In Vitro 2 times a day as directed 12h Feb, 25 days Active Hydrocodone-Acetaminophen 7.5-325 MG Orally every 6 hrs 1 tablet as needed 6h Feb, 28 days Active RESULTS Name Result Date Reference Range A1C (IN HOUSE) 2017-02-20 A1C IN HOUSE 6.2 4.3 - 5.6 % Previous A1c 7.1 Lot [id number] Exp date 10/2018 Ultrasound : Head (soft tissue) 2017-02-26 PROCEDURES Procedure Date Ordered Result Body Site GLYCATED HEMOGLOBIN TEST Feb 20, 2017 INSTRUCTIONS MEDICATIONS ADMINISTERED No Known Medications MEDICAL (GENERAL) HISTORY Type Description Date Medical History Diabetes Type II Medical History Heart Stents x2 2010- Bare metal stent t o OM-2013 [facility] Medical History Hypertension Medical History 2010- [facility]- 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
--- OUTSIDE RECORDS SUMMARY | 2019-08-27 21:06 | XMS REPORT ---
Author Author Gerry SALINAS Organization [facility] Address [address] [place] [address] Care Team Providers Care Commercial Hvac Service Technician Name Role Phone LING SALINAS Unavailable PROBLEMS Type Condition ICD9-CM Code LST55-FO Code Onset Dates Condition S tatus SNOMED Code Problem History of [place] (myocardial infarction) I25.2 Active 404130249 Problem Type 2 diabetes mellitus without complication E11. 9 Active 79007455 Problem Neuropathy G62.9 Active 231716523 Assessment Acute non-recurrent maxillary sinusitis J01.00 Jun, Active 98269178 Assessment Right medial knee pain M25.561 Jun, Act jose 151808030 Problem Hypertension I10 Active 1851668 3 Problem History of aortic aneurysm repair Z98.89 Active 775518284 Problem CAD (coronary artery disease) I25.10 Active 61266057 Problem Seasonal allergic rhinitis due to pollen J30.1 Active 13117444 Problem Right medial knee pain M25.561 Active 128115884 Problem Morbid obesity due to excess calories E66.01 Active 961734743 Problem Vitamin D deficiency E55.9 Active 55368922 Problem Hypertriglyceridemia E78.1 Active 427399501 ALLERGIES Substance Reaction Event Type Date Status N.K.D.A. Unknown Non Drug Allergy Jun, Unknown SOCIAL HISTORY No smoking Hx information available PLAN OF CARE VITAL SIGNS Height 67 in 2016-06-08 Weight 266.5 lbs 2016-06-08 Heart Rate 88 bpm 2016-06-08 Respiratory Rate 20 2016-06-08 BMI 41.74 kg/m2 2016-06-08 Blood pressure systolic 160 mmHg 2016-06-08 Blood pressure diastolic 90 mmHg 2016-06-08 MEDICATIONS Medication Instructions Dosage Frequency Start Date End Date Duration S tatus Plavix 75 MG Orally Once a day 1 tablet 24h Jun, Active Metformin HCl 1000 MG Orally Twice a day 1 tablet with meals 12h Active Gabapentin 100 MG Orally Once a day at bedtime 1 capsule Jun, Active Cetirizine HCl 10 mg Orally Once a day 1 tablet 24h Apr, Active Augmentin 875-125 MG Orally every 12 hrs 1 tablet 12h Apr, 016 Jun, 14 days Active Nitroglycerin 0.4 MG Sublingual one tablet for ch est pain every 5 minutes x 3 doses then to the ER as directed Jun, A ctive Lisinopril 10 mg Orally Once a day 1 tablet 24h Jun, Active Coreg 12.5 MG Orally 2 times a day 1/2 tablet 12h Active Fenofibrate 54 MG Orally Once a day 1 tablet with a meal 24h Active Fluticasone Propionate 50 MCG/ACT Nasally Once a day 1 spray in each nostril 24h Apr, Active Tradjenta 5 mg Orally Once a day 1 tablet 24h Jan, Active Hydrocodone-Acetaminophen 7.5-325 MG Orally every 6 hrs 1 tablet as needed 6h Apr, Jun, 28 days Active Vitamin D (Ergocalciferol) 22004 UNIT Orally weekly 1 capsule Jun, Active RESULTS No Results PROCEDURES Procedure Date Ordered Related Diagnosis Body Site Office Visit, Est Pt., Level 3 Jun 08, 2016 IMMUNIZATIONS No Known Immunizations
--- OUTSIDE RECORDS SUMMARY | 2019-08-27 21:06 | XMS REPORT ---
Author Author Gerry MENDES Organization [facility] Address Unknown Care Team Providers Care Brazing Furnace Operator Name Role Phone CAIO MENDES Unavailable PROBLEMS Type Condition ICD9-CM Code EFQ12-LT Code Onset Dates Condition S tatus SNOMED Code Problem Morbid obesity due to excess calories E66.01 Active 382474260 Problem Hypertriglyceridemia E78.1 Active 275702464 Problem Vitamin D deficiency E55.9 Active 19770071 Problem Parotitis K11.20 Active 09332057 Problem Hyperlipidemia, unspecified hyperlipidemia type E7 8.5 Active 84929219 Problem Seasonal allergic rhinitis due to pollen J30.1 Active 15611252 Problem Right medial knee pain M25.561 Active 554497391 Problem Gastroesophageal reflux disease with esophagitis K 21.0 Active 334682054 Problem CAD (coronary artery disease) I25.10 Active 72482385 Problem Neuropathy G62.9 Active 731931023 Problem Hypertension I10 Active 5057190 3 Problem History of [place] (myocardial infarction) I25.2 Active 103030505 Problem History of aortic aneurysm repair Z98.89 Active 824657831 Problem Type 2 diabetes mellitus without complication E11. 9 Active 75396564 ALLERGIES Unknown Allergies SOCIAL HISTORY No smoking Hx information available PLAN OF CARE VITAL SIGNS MEDICATIONS Medication Instructions Dosage Frequency Start Date End Date Duration S tatus Amoxicillin 500 MG Orally 1 hour before dental treatment 4 capsules 6 Jul, 2016 1 days Active RESULTS No Results PROCEDURES No Known procedures IMMUNIZATIONS No Known Immunizations
--- OUTSIDE RECORDS SUMMARY | 2019-08-27 21:06 | XMS REPORT ---
Author Author Gerry SALINAS Organization [facility] Address [address] [place] [address] Care Team Providers Care Buttermilk Drier Operator Name Role Phone LING SALINAS Unavailable PROBLEMS Type Condition ICD9-CM Code [id number] Code Onset Dates Condition S tatus SNOMED Code Problem Type 2 diabetes mellitus without complication E11. 9 Active 01993389 Problem CAD (coronary artery disease) I25.10 Active 68934387 Problem Vitamin D deficiency E55.9 Active 79509573 Problem Hypertension I10 Active 7511067 3 Problem Neuropathy G62.9 Active 616350002 Problem Morbid (severe) obesity due to excess calories E66 .01 Active 421081861 Problem Body mass index (BMI) of 38.0-38.9 in adult Z68.38 Active 671428430 Problem Gastroesophageal reflux disease with esophagitis K 21.0 Active 795162966 Problem Seasonal allergic rhinitis due to pollen J30.1 Active 90769127 Problem Lumbosacral radiculopathy due to osteoarthritis of spine M47.27 Active 8564118 Problem Hyperlipidemia, unspecified hyperlipidemia type E7 8.5 Active 27316976 ALLERGIES No Information ENCOUNTERS Encounter Location Date Diagnosis [facility] [address] [facility] [id number] [address] [place] [phone] Oct, Right medial knee pain M25.5 61 [facility] [address] [facility] [id number] [address] [place] [phone] Sep, Type 2 diabetes mellitus wit hout [...] 38.0-38.9 in adult Z68.38 and Neuropathy G62.9 [place] [address] [address] Aug, Right medial knee pain M25.5 61 [place] [address] [address] Aug, Controlled substance agreeme nt signed Z79.899 [place] [address] [address] Jul, Right medial knee pain M25.5 61 [place] [address] [address] Jun, Right medial knee pain M25.5 61 [place] [address] [address] May, Lumbosacral radiculopathy du e to osteoarthritis of spine M47.27 and Chondromalacia, right knee M94.261 [place] [address] [address] May, Right medial knee pain M25.5 61 and Seasonal allergic rhinitis due to pollen J30.1 [place] [address] [address] 30 Apr, 2017 Right medial knee pain M25.5 61 and Gastroesophageal reflux disease with esophagitis K21.0 [place] [address] [address] 03 Apr, 2017 Type 2 diabetes mellitus wit hout complication E11.9 ; Neuropathy G62.9 ; Hypertension I10 ; Vitamin D deficiency E55.9 ; Hypertriglyceridemia E78.1 ; Gastroesophageal reflux disease with esophagitis K21.0 ; CAD (coronary artery disease) I25.10 and Right medial knee pain M25.561 [place] [address] [address] 15 Mar, 2017 Right medial knee pain M25.5 61 and Type 2 diabetes mellitus without complication E11.9 [place] [address] [address] [place] [id number] [address] [place] [address] Feb, Chondromalacia, right knee M 94.261 and Lumbosacral radiculopathy due to osteoarthritis of spine M47.27 [place] [address] [place] [id number] [place] [phone] Feb, Parotitis K11.20 [place] [address] [address] Feb, Type 2 diabetes mellitus wit hout complication E11.9 ; Neuropathy G62.9 ; Hypertension I10 ; Vitamin D deficiency E55.9 ; Hyperlipidemia, unspecified hyperlipidemia type E78.5 ; Morbid obesity due to excess calories E66.01 ; CAD (coronary artery disease) I25.10 ; Gastroesophageal reflux disease with esophagitis K21.0 ; Lymphadenopathy, periauricular R59.0 ; Right medial knee pain M25.561 and Parotitis K11.20 [place] [address] [place] [id number] [place] [phone] Jan, [facility] [address] [place] [id number] [place] [id number] Jan, Dental examination Z01.20 an d Dental caries K02.9 [place] [address] [place] [id number] [place] [phone] Jan, Vitamin D deficiency E55.9 [place] [address] [place] [id number] [place] [phone] Jan, Right medial knee pain M25.5 61 [place] [address] [place] [id number] [address] [place] [phone] Jan, Type 2 diabetes mellitus wit hout complication E11.9 ; History of [place] (myocardial infarction) I25.2 ; Hypertension I10 ; Gastroesophageal reflux disease with esophagitis K21.0 ; Seasonal allergic rhinitis due to pollen J30.1 and Right medial knee pain M25.561 [place] [address] [place] [id number] [place] [phone] Dec, Seasonal allergic rhinitis d ue to pollen J30.1 [place] [address] [address] November, Right medial knee pain M25.5 61 [place] [address] [address] November, Other chest pain R07.89 ; CA D (coronary artery disease) I25.10 ; Hypertension I10 and Hyperlipidemia, unspecified hyperlipidemia type E78.5 [place] [address] [address] November, Hypertension I10 [place] [address] [address] Oct, Hypertriglyceridemia E78.1 [place] [address] [address] Oct, Type 2 diabetes mellitus wit hout complication E11.9 ; Neuropathy G62.9 ; History of [place] (myocardial infarction) I25.2 ; Hypertension I10 ; Vitamin D deficiency E55.9 ; Hypertriglyceridemia E78.1 ; Right medial knee pain M25.561 ; Gastroesophageal reflux disease with esophagitis K21.0 and Nausea R11.0 [place] [address] [address] Sep, [facility] [address] [id number] Jul, Dental caries K02.9 and [place] al examination Z01.20 [facility] [address] [place] [id number] [place] [id number] Jul, [place] [address] [address] Jun, [facility] [address] [place] [id number] [place] [id number] Jun, Dental examination Z01.20 [place] [address] [place] [id number] [place] [address] Jun, [place] [address] [address] Jun, [place] [address] [address] Jun, Right medial knee pain M25.5 61 ; Acute non-recurrent maxillary sinusitis J01.00 and Hypertension I10 [place] [address] [address] 04 Apr, 2016 Type 2 diabetes mellitus wit hout complication E11.9 ; Neuropathy G62.9 ; Hypertension I10 ; Hypertriglyceridemia E78.1 ; Right medial knee pain M25.561 ; Morbid obesity due to excess calories E66.01 ; CAD (coronary artery disease) I25.10 ; Seasonal allergic rhinitis due to pollen J30.1 and Acute non- recurrent frontal sinusitis J01.10 [place] [address] [address] Jan, Type 2 diabetes mellitus wit hout complication E11.9 ; Neuropathy G62.9 ; History of [place] (myocardial infarction) I25.2 ; Hypertension I10 ; Vitamin D deficiency E55.9 ; Hypertriglyceridemia E78.1 ; Right medial knee pain M25.561 and Morbid obesity due to excess calories E66.01 [place] [address] [place] [id number] [place] [phone] November, [place] [address] [address] November, Type 2 diabetes mellitus wit hout complication E11.9 ; General medical exam Z00.00 ; Neuropathy G62.9 ; History of [place] (myocardial infarction) I25.2 ; History of aortic aneurysm repair Z98.89 ; History of vitamin D deficiency Z86.39 ; Hypertension I10 and History of high cholesterol Z86.39 [place] [address] [place] [id number] [place] [phone] Sep, Diabetes mellitus E11.9 ; Ne uropathy G62.9 ; Hypertension I10 ; CAD (coronary artery disease) I25.10 and Hypertriglyceridemia E78.1 [facility] [address] [facility] [id number] [address] [place] [phone] Sep, [facility] [address] [facility] [id number] [address] [place] [phone] Aug, [facility] [address] [facility] [id number] [address] [place] [phone] Jun, [facility] [address] [facility] [id number] [address] [place] [phone] Jun, Type 2 diabetes mellitus wit hout complication E11.9 ; General medical exam Z00.00 ; Neuropathy G62.9 ; History of [place] (myocardial infarction) I25.2 ; History of aortic aneurysm repair Z98.89 ; Flank pain R10.9 ; History of vitamin D deficiency Z86.39 ; Hypertension I10 and History of high cholesterol Z86.39 IMMUNIZATIONS No Known Immunizations SOCIAL HISTORY Never Assessed REASON FOR VISIT Refill request PLAN OF CARE VITAL SIGNS MEDICATIONS Medication Instructions Dosage Frequency Start Date End Date Duration S maryjane Cholecalciferol 5000 UNIT Orally Once a day 1 tablet 24h 26 Jan, 201 7 90 days Active RESULTS No Results PROCEDURES No Known procedures INSTRUCTIONS MEDICATIONS ADMINISTERED No Known Medications MEDICAL (GENERAL) HISTORY Type Description Date Medical History Diabetes Type II Medical History Heart Stents x2 2010- Bare metal stent t o OM-2013 [facility] Medical History Hypertension Medical History 2010- [facility]- dissection o f descending thoracic [...] Dissecting Aorta Hospitalization [place] dissecting [place] Hospitalization History [place]
--- OUTSIDE RECORDS SUMMARY | 2019-08-27 21:06 | XMS REPORT ---
Author Author Gerry SALINAS Organization [employer] Address Unknown Phone Unavailable Care Team Providers Care Sales Correspondent Name Role Phone LING SALINAS CP Unavailable Allergies, Adverse Reactions, Alerts Substance Reaction Event Type N.K.D.A. Info Not Available Non Drug Allergy Problems Problem Type Condition Code Onset Dates Condition Statu s Assessment Type 2 diabetes mellitus without complication E11.9 Active Problem History of aortic aneurysm repair Z98.89 Active Problem Hypertension I10 Active Problem Hypertriglyceridemia E78.1 Active Problem Right medial knee pain M25.561 Activ e Problem Vitamin D deficiency E55.9 Active Problem Neuropathy G62.9 Active Problem History of [place] (myocardial infarction) I25.2 Active Problem Morbid obesity due to excess calories E66.01 Active Problem Type 2 diabetes mellitus without complication E11.9 Active Assessment Morbid obesity due to excess calories E66.01 Active Assessment Vitamin D deficiency E55.9 Active Assessment Hypertension I10 Active Assessment Right medial knee pain M25.561 Activ e Assessment History of [place] (myocardial infarction) I25.2 Active Assessment Hypertriglyceridemia E78.1 Active Assessment Neuropathy G62.9 Active Medications Medication Code System Code Instructions Start Date End Date Status Dosage Hydrocodone-Acetaminophen [facility] [address]-04 5-325 MG Orall y every 6 hrs January 20, 2016 February 03, 2016 1 tablet as needed Vitamin D (Ergocalciferol) [facility] [address]-06 70693 UNIT Or ally weekly Jun 18, 2015 1 capsule Fenofibrate [facility] [address]-83 54 MG Orally Once a day 1 tablet with a meal Nitroglycerin [facility] [address]-11 0.4 MG Sublingua l one tablet for chest pain every 5 minutes x 3 doses then to the ER Jun 18, 2015 as directed Metformin HCl [facility] [address]-88 1000 MG Orally Twice a day 1 tablet with meals Tradjenta [facility] [address]-00 5 mg Orally Once a day January 20, 2016 1 tablet Coreg [facility] [address]-03 6.25 MG Orally 2 times a day 1 tablet Lisinopril [facility] [address]-65 10 MG Orally Once a day Jun 18, 2015 1 tablet Plavix [facility] [address]-36 75 MG Orally Once a day Jun 18, 2015 1 tablet Gabapentin [facility] [address]-93 100 MG Orally Once a day at bedtime Jun 18, 2015 1 capsule Procedures Procedure Coding System Code Date Office Visit, Est Pt., Level 3 CPT-4 35607 [facility] 2015 GLYCATED HEMOGLOBIN TEST CPT-4 77070 January Vital Signs Date/Time: January 20, 2016 Blood Pressure Systolic 142 mmHg Weight 265.0 lbs Height 67 in Blood Pressure Diastolic 80 mmHg Results No Known Results Summary Purpose [employer] Submission
--- OUTSIDE RECORDS SUMMARY | 2019-08-27 21:06 | XMS REPORT ---
Author Author Gerry MENDES Organization [facility] Address Unknown Care Team Providers Care Utilization Reviewer Name Role Phone CAIO MENDES Unavailable PROBLEMS Type Condition ICD9-CM Code [id number] Code Onset Dates Condition S tatus SNOMED Code Problem Morbid obesity due to excess calories E66.01 Active 228852279 Problem Hypertriglyceridemia E78.1 Active 262338068 Problem Vitamin D deficiency E55.9 Active 03818877 Problem Parotitis K11.20 Active 25318539 Problem Hyperlipidemia, unspecified hyperlipidemia type E7 8.5 Active 31346252 Problem Seasonal allergic rhinitis due to pollen J30.1 Active 18103414 Problem Right medial knee pain M25.561 Active 412429328 Problem Gastroesophageal reflux disease with esophagitis K 21.0 Active 718928754 Problem CAD (coronary artery disease) I25.10 Active 28865450 Problem Neuropathy G62.9 Active 070782018 Problem Hypertension I10 Active 5371979 3 Problem History of [place] (myocardial infarction) I25.2 Active 701100157 Problem History of aortic aneurysm repair Z98.89 Active 722410970 Problem Type 2 diabetes mellitus without complication E11. 9 Active 91711862 ALLERGIES Substance Reaction Event Type Date Status N.K.D.A. Unknown Non Drug Allergy Jun, Unknown SOCIAL HISTORY No smoking Hx information available PLAN OF CARE Activity Details Follow Up prn Reason:te..waiting on me d clearance VITAL SIGNS Blood pressure systolic 152 mmHg 2016-06-20 Blood pressure diastolic 99 mmHg 2016-06-20 MEDICATIONS Medication Instructions Dosage Frequency Start Date End Date Duration S maryjane Metformin HCl 1000 MG Orally Twice a day 1 tablet with meals 12h 90 days Active Hydrocodone-Acetaminophen 7.5-325 MG Orally every 6 hrs 1 tablet as needed 6h Apr, Jun, 28 days Active Fluticasone Propionate 50 MCG/ACT Nasally Once a day 1 spray in each nostril 24h Apr, Active Vitamin D (Ergocalciferol) 21807 UNIT Orally weekly 1 capsule Jun, Active Lisinopril 10 mg Orally Once a day 1 tablet 24h Jun, Active Gabapentin 100 MG Orally Once a day at bedtime 1 capsule Jun, Active Cetirizine HCl 10 mg Orally Once a day 1 tablet 24h Apr, Active Tradjenta 5 mg Orally Once a day 1 tablet 24h Jan, 3 5 days Active Fenofibrate 54 MG Orally Once a day 1 tablet with a meal 24h Active Nitroglycerin 0.4 MG Sublingual one tablet for ch est pain every 5 minutes x 3 doses then to the ER as directed Jun, A ctive Coreg 6.25 MG Orally 2 times a day 1 tablet 12h 90 days Active Plavix 75 MG Orally Once a day 1 tablet 24h Jun, Active RESULTS No Results PROCEDURES Procedure Date Ordered Related Diagnosis Body Site LTD ORAL EVALUATION - PROBLEM FOCUS Jun 20, 2016 INTRAORL-PERIAPICAL 1 FILM 00174 Jun 20, 2016 BITEWING - SINGLE FILM Jun 20, 2016 IMMUNIZATIONS No Known Immunizations
--- OUTSIDE RECORDS SUMMARY | 2019-08-27 21:07 | XMS REPORT ---
Author Author Gerry SALINAS Organization [facility] Address [address] [place] [address] Care Team Providers Care Airframe And Powerplant Mechanic Name Role Phone LING SALINAS Unavailable PROBLEMS Type Condition ICD9-CM Code [id number] Code Onset Dates Condition S tatus SNOMED Code Problem Type 2 diabetes mellitus without complication E11. 9 Active 86184914 Problem CAD (coronary artery disease) I25.10 Active 21656666 Problem Vitamin D deficiency E55.9 Active 15292927 Problem Hypertension I10 Active 1037349 3 Problem Neuropathy G62.9 Active 254081168 Problem Morbid (severe) obesity due to excess calories E66 .01 Active 327794019 Problem Body mass index (BMI) of 38.0-38.9 in adult Z68.38 Active 961486720 Problem Gastroesophageal reflux disease with esophagitis K 21.0 Active 595870508 Problem Seasonal allergic rhinitis due to pollen J30.1 Active 35159420 Problem Lumbosacral radiculopathy due to osteoarthritis of spine M47.27 Active 7674287 Problem Hyperlipidemia, unspecified hyperlipidemia type E7 8.5 Active 60977347 ALLERGIES No Information ENCOUNTERS Encounter Location Date Diagnosis [facility] [address] [facility] [id number] [address] [place] [address] Oct, Right medial knee pain M25.5 61 [facility] [address] [facility] [id number] [address] [place] [phone] Sep, Type 2 diabetes mellitus wit hout [...] 38.0-38.9 in adult Z68.38 and Neuropathy G62.9 [place] [address] [address] Aug, Right medial knee pain M25.5 61 [place] [address] [address] Aug, Controlled substance agreeme nt signed Z79.899 [place] [address] [address] Jul, Right medial knee pain M25.5 61 [place] [address] [address] Jun, Right medial knee pain M25.5 61 [place] [address] [address] May, Lumbosacral radiculopathy du e to osteoarthritis of spine M47.27 and Chondromalacia, right knee M94.261 [place] [address] [address] May, Right medial knee pain M25.5 61 and Seasonal allergic rhinitis due to pollen J30.1 [place] [address] [address] 30 Apr, 2017 Right medial knee pain M25.5 61 and Gastroesophageal reflux disease with esophagitis K21.0 [place] [address] [address] 03 Apr, 2017 Type 2 diabetes mellitus wit hout complication E11.9 ; Neuropathy G62.9 ; Hypertension I10 ; Vitamin D deficiency E55.9 ; Hypertriglyceridemia E78.1 ; Gastroesophageal reflux disease with esophagitis K21.0 ; CAD (coronary artery disease) I25.10 and Right medial knee pain M25.561 [place] [address] [address] 15 Mar, 2017 Right medial knee pain M25.5 61 and Type 2 diabetes mellitus without complication E11.9 [place] [address] [place] [id number] [address] [place] [address] Feb, Chondromalacia, right knee M 94.261 and Lumbosacral radiculopathy due to osteoarthritis of spine M47.27 [place] [address] [place] [id number] [address] [place] [address] Feb, Parotitis K11.20 [place] [address] [address] Feb, Type 2 diabetes mellitus wit hout complication E11.9 ; Neuropathy G62.9 ; Hypertension I10 ; Vitamin D deficiency E55.9 ; Hyperlipidemia, unspecified hyperlipidemia type E78.5 ; Morbid obesity due to excess calories E66.01 ; CAD (coronary artery disease) I25.10 ; Gastroesophageal reflux disease with esophagitis K21.0 ; Lymphadenopathy, periauricular R59.0 ; Right medial knee pain M25.561 and Parotitis K11.20 [place] [address] [place] [id number] [address] [place] [address] Jan, [facility] [address] [place] [id number] [place] [id number] Jan, Dental examination Z01.20 an d Dental caries K02.9 [place] [address] [address] [place] [id number] [address] [place] [address] Jan, Vitamin D deficiency E55.9 [place] [address] [place] [id number] [address] [place] [address] Jan, Right medial knee pain M25.5 61 [place] [address] [place] [id number] [address] [place] [address] Jan, Type 2 diabetes mellitus wit hout complication E11.9 ; History of MS (myocardial infarction) I25.2 ; Hypertension I10 ; Gastroesophageal reflux disease with esophagitis K21.0 ; Seasonal allergic rhinitis due to pollen J30.1 and Right medial knee pain M25.561 [place] [address] [place] [id number] [address] [place] [phone] Dec, Seasonal allergic rhinitis d ue to pollen J30.1 [place] [address] [address] November, Right medial knee pain M25.5 61 [place] [address] [address] November, Other chest pain R07.89 ; CA D (coronary artery disease) I25.10 ; Hypertension I10 and Hyperlipidemia, unspecified hyperlipidemia type E78.5 [place] [address] [address] November, Hypertension I10 [place] [address] [address] Oct, Hypertriglyceridemia E78.1 [place] [address] [address] Oct, Type 2 diabetes mellitus wit hout complication E11.9 ; Neuropathy G62.9 ; History of MS (myocardial infarction) I25.2 ; Hypertension I10 ; Vitamin D deficiency E55.9 ; Hypertriglyceridemia E78.1 ; Right medial knee pain M25.561 ; Gastroesophageal reflux disease with esophagitis K21.0 and Nausea R11.0 [place] [address] [address] Sep, [facility] [address] [id number] Jul, Dental caries K02.9 and [place] al examination Z01.20 [facility] [address] [place] [id number] [place] [phone] Jul, [place] [address] [address] Jun, [facility] [address] [place] [id number] [place] [phone] Jun, Dental examination Z01.20 [place] [address] [place] [address] [place] [address] Jun, [place] [address] [address] Jun, [place] [address] [address] Jun, Right medial knee pain M25.5 61 ; Acute non-recurrent maxillary sinusitis J01.00 and Hypertension I10 [place] [address] [address] 04 Apr, 2016 Type 2 diabetes mellitus wit hout complication E11.9 ; Neuropathy G62.9 ; Hypertension I10 ; Hypertriglyceridemia E78.1 ; Right medial knee pain M25.561 ; Morbid obesity due to excess calories E66.01 ; CAD (coronary artery disease) I25.10 ; Seasonal allergic rhinitis due to pollen J30.1 and Acute non- recurrent frontal sinusitis J01.10 [place] [address] [address] Jan, Type 2 diabetes mellitus wit hout complication E11.9 ; Neuropathy G62.9 ; History of MS (myocardial infarction) I25.2 ; Hypertension I10 ; Vitamin D deficiency E55.9 ; Hypertriglyceridemia E78.1 ; Right medial knee pain M25.561 and Morbid obesity due to excess calories E66.01 [place] [address] [place] [id number] [address] [place] [address] November, [place] [address] [address] November, Type 2 diabetes mellitus wit hout complication E11.9 ; General medical exam Z00.00 ; Neuropathy G62.9 ; History of MS (myocardial infarction) I25.2 ; History of aortic aneurysm repair Z98.89 ; History of vitamin D deficiency Z86.39 ; Hypertension I10 and History of high cholesterol Z86.39 [place] [address] [address] [place] [id number] [place] [address] Sep, Diabetes mellitus E11.9 ; Ne uropathy G62.9 ; Hypertension I10 ; CAD (coronary artery disease) I25.10 and Hypertriglyceridemia E78.1 [facility] [address] [facility] [id number] [address] [place] [phone] Sep, [facility] [address] [facility] [id number] [address] [place] [address] Aug, [facility] [address] [place] [id number] [address] [place] [phone] Jun, [facility] [address] [facility] [id number] [address] [place] [address] Jun, Type 2 diabetes mellitus wit hout complication E11.9 ; General medical exam Z00.00 ; Neuropathy G62.9 ; History of MS (myocardial infarction) I25.2 ; History of aortic aneurysm repair Z98.89 ; Flank pain R10.9 ; History of vitamin D deficiency Z86.39 ; Hypertension I10 and History of high cholesterol Z86.39 IMMUNIZATIONS No Known Immunizations SOCIAL HISTORY Never Assessed REASON FOR VISIT CT order PLAN OF CARE VITAL SIGNS MEDICATIONS Unknown Medications RESULTS Name Result Date Reference Range BUN 2017-03-08 BUN CREATININE, SERUM 2017-03-08 Creatinine, Serum eGFR If NonAfricn Am eGFR If Africn Am CT Scan : Face 2017-03-08 PROCEDURES Procedure Date Ordered Result Body Site ASSAY OF UREA NITROGEN Feb 27, 2017 ASSAY OF CREATININE Feb 27, 2017 INSTRUCTIONS MEDICATIONS ADMINISTERED No Known Medications MEDICAL (GENERAL) HISTORY Type Description Date Medical History Diabetes Type II Medical History Heart Stents x2 2010- Bare metal stent t o OM-2013 [facility] Medical History Hypertension Medical History 2010- [facility]- dissection o f descending thoracic [...]
--- OUTSIDE RECORDS SUMMARY | 2019-08-27 21:07 | XMS REPORT ---
Author Author Gerry SALINAS Organization [employer] Address Unknown Phone Unavailable Care Team Providers Care Industrial Gas Servicer Supervisor Name Role Phone LING SALINAS CP Unavailable Allergies No Known Allergies Problems Problem Type Condition Code Onset Dates Condition Statu s Problem Type 2 diabetes mellitus without complication E11.9 Active Problem Neuropathy G62.9 Active Problem Diabetes mellitus E11.9 Active Problem Hypertension I10 Active Problem History of [place] (myocardial infarction) I25.2 Active Problem History of aortic aneurysm repair Z98.89 Active Medications No Known Medications Results No Known Results Summary Purpose [employer] Submission
--- OUTSIDE RECORDS SUMMARY | 2019-08-27 21:07 | XMS REPORT ---
Author Author Gerry SALINAS Organization [facility] Address [address] [place] [address] Care Team Providers Care Audiology Technician Name Role Phone LING SALINAS Unavailable PROBLEMS Type Condition ICD9-CM Code [id number] Code Onset Dates Condition S tatus SNOMED Code Problem Type 2 diabetes mellitus without complication E11. 9 Active 58167295 Problem CAD (coronary artery disease) I25.10 Active 25669602 Problem Vitamin D deficiency E55.9 Active 46969670 Problem Hypertension I10 Active 5531577 3 Problem Neuropathy G62.9 Active 195576264 Problem Morbid (severe) obesity due to excess calories E66 .01 Active 230662862 Problem Body mass index (BMI) of 38.0-38.9 in adult Z68.38 Active 843542779 Problem Gastroesophageal reflux disease with esophagitis K 21.0 Active 305838074 Problem Seasonal allergic rhinitis due to pollen J30.1 Active 45668092 Problem Lumbosacral radiculopathy due to osteoarthritis of spine M47.27 Active 3215818 Problem Hyperlipidemia, unspecified hyperlipidemia type E7 8.5 Active 15630094 ALLERGIES No Information ENCOUNTERS Encounter Location Date Diagnosis [facility] [address] [facility] [id number] [address] [place] [phone] Feb, [facility] [address] [facility] [id number] [address] [place] [phone] Dec, [facility] [address] [facility] [id number] [address] [place] [address] Dec, Acute maxillary sinusitis, r ecurrence not specified J01.00 [facility] [address] [facility] [id number] [address] [place] [phone] Dec, [facility] [address] [place] [id number] [address] [place] [address] Dec, Right medial knee pain M25.5 61 [facility] [address] [id number] [address] [place] [address] November, [facility] [address] [id number] [address] [place] [address] November, Right medial knee pain M25.5 61 [facility] [address] [id number] [address] [place] [address] Oct, Right medial knee pain M25.5 61 [place] [address] [id number] [address] [place] [address] Sep, Type 2 diabetes mellitus wit hout [...] 38.0-38.9 in adult Z68.38 and Neuropathy G62.9 [place] [address] [id number] [address] [place] [address] Aug, Right medial knee pain M25.5 61 [place] [address] [id number] [address] [place] [address] Aug, Controlled substance agreeme nt signed Z79.899 [place] [address] [id number] [address] [place] [address] Jul, Right medial knee pain M25.5 61 [place] [address] [id number] [address] [place] [address] Jun, Right medial knee pain M25.5 61 [place] [address] [id number] [address] [place] [address] May, Lumbosacral radiculopathy du e to osteoarthritis of spine M47.27 and Chondromalacia, right knee M94.261 [place] [address] [address] May, Right medial knee pain M25.5 61 and Seasonal allergic rhinitis due to pollen J30.1 [place] [address] [address] Apr, Right medial knee pain M25.5 61 and Gastroesophageal reflux disease with esophagitis K21.0 [place] [address] [address] Apr, Type 2 diabetes mellitus wit hout complication E11.9 ; Neuropathy G62.9 ; Hypertension I10 ; Vitamin D deficiency E55.9 ; Hypertriglyceridemia E78.1 ; Gastroesophageal reflux disease with esophagitis K21.0 ; CAD (coronary artery disease) I25.10 and Right medial knee pain M25.[address] [address] Mar, Right medial knee pain M25.5 61 and Type 2 diabetes mellitus without complication E11.[address] [address] Feb, Chondromalacia, right knee M 94.261 and Lumbosacral radiculopathy due to osteoarthritis of spine M47.[address] [address] Feb, Parotitis K11.[address] [address] Feb, Type 2 diabetes mellitus wit hout complication E11.9 ; Neuropathy G62.9 ; Hypertension I10 ; Vitamin D deficiency E55.9 ; Hyperlipidemia, unspecified hyperlipidemia type E78.5 ; Morbid obesity due to excess calories E66.01 ; CAD (coronary artery disease) I25.10 ; Gastroesophageal reflux disease with esophagitis K21.0 ; Lymphadenopathy, periauricular R59.0 ; Right medial knee pain M25.561 and Parotitis K11.20 [place] [address] [place] [id number] [address] [place] [address] Jan, [facility] [address] [place] [id number] [address] [place] [id number] Jan, Dental examination Z01.20 an d Dental caries K02.9 [place] [address] [place] [id number] [address] [place] [address] Jan, Vitamin D deficiency E55.9 [place] [address] [place] [id number] [place] [address] Jan, Right medial knee pain M25.5 61 [place] [address] [address] Jan, Type 2 diabetes mellitus wit hout complication E11.9 ; History of [place] (myocardial infarction) I25.2 ; Hypertension I10 ; Gastroesophageal reflux disease with esophagitis K21.0 ; Seasonal allergic rhinitis due to pollen J30.1 and Right medial knee pain M25.561 [place] [address] [address] Dec, Seasonal allergic rhinitis d ue to pollen J30.1 [place] [address] [address] November, Right medial knee pain M25.5 61 [place] [address] [address] November, Other chest pain R07.89 ; CA D (coronary artery disease) I25.10 ; Hypertension I10 and Hyperlipidemia, unspecified hyperlipidemia type E78.5 [place] [address] [place] [id number] [address] [place] [address] November, Hypertension I10 [place] [address] [address] Oct, Hypertriglyceridemia E78.1 [place] [address] [place] [id number] [place] [address] 04 Apr, 2017 Type 2 diabetes mellitus wit hout complication E11.9 ; Neuropathy G62.9 ; History of [place] (myocardial infarction) I25.2 ; Hypertension I10 ; Vitamin D deficiency E55.9 ; Hypertriglyceridemia E78.1 ; Right medial knee pain M25.561 ; Gastroesophageal reflux disease with esophagitis K21.0 and Nausea R11.0 [facility] [address] [address] Sep, [facility] [address] [id number] Jul, Dental caries K02.9 and Ulm al examination Z01.20 [facility] [address] [id number] Jul, [place] [address] [address] Jun, [facility] [address] [id number] Jun, Dental examination Z01.20 [place] [address] [place] [id number] [address] [place] [address] Jun, [place] [address] [address] Jun, [place] [address] [address] Jun, Right medial knee pain M25.5 61 ; Acute non-recurrent maxillary sinusitis J01.00 and Hypertension I10 [place] [address] [place] [id number] [place] [address] Apr, Type 2 diabetes mellitus wit hout complication E11.9 ; Neuropathy G62.9 ; Hypertension I10 ; Hypertriglyceridemia E78.1 ; Right medial knee pain M25.561 ; Morbid obesity due to excess calories E66.01 ; CAD (coronary artery disease) I25.10 ; Seasonal allergic rhinitis due to pollen J30.1 and Acute non- recurrent frontal sinusitis J01.10 [place] [address] [place] [id number] [place] [address] Jan, Type 2 diabetes mellitus wit hout complication E11.9 ; Neuropathy G62.9 ; History of [place] (myocardial infarction) I25.2 ; Hypertension I10 ; Vitamin D deficiency E55.9 ; Hypertriglyceridemia E78.1 ; Right medial knee pain M25.561 and Morbid obesity due to excess calories E66.01 [place] [address] [place] [id number] [address] [place] [address] November, [place] [address] [place] [id number] [address] [place] [address] November, Type 2 diabetes mellitus wit hout complication E11.9 ; General medical exam Z00.00 ; Neuropathy G62.9 ; History of [place] (myocardial infarction) I25.2 ; History of aortic aneurysm repair Z98.89 ; History of vitamin D deficiency Z86.39 ; Hypertension I10 and History of high cholesterol Z86.39 [place] [address] [place] [id number] [address] [place] [address] Sep, Diabetes mellitus E11.9 ; Ne uropathy G62.9 ; Hypertension I10 ; CAD (coronary artery disease) I25.10 and Hypertriglyceridemia E78.1 [place] [address] [place] [id number] [place] [address] Sep, [place] [address] [place] [id number] [place] [address] Aug, [place] [address] [place] [address] Jun, [place] [address] [place] [id number] [address] [place] [address] Jun, Type 2 diabetes mellitus wit hout complication E11.9 ; General medical exam Z00.00 ; Neuropathy G62.9 ; History of [place] (myocardial infarction) I25.2 ; History of aortic aneurysm repair Z98.89 ; Flank pain R10.9 ; History of vitamin D deficiency Z86.39 ; Hypertension I10 and History of high cholesterol Z86.39 IMMUNIZATIONS No Known Immunizations SOCIAL HISTORY Never Assessed REASON FOR VISIT med refill PLAN OF CARE VITAL SIGNS MEDICATIONS Medication Instructions Dosage Frequency Start Date End Date Duration S maryajne Hydrocodone-Acetaminophen 7.5-325 MG Orally every 6 hrs 1 tablet as needed 6h Jul, 28 days Active RESULTS No Results PROCEDURES No Known procedures INSTRUCTIONS MEDICATIONS ADMINISTERED No Known Medications MEDICAL (GENERAL) HISTORY Type Description Date Medical History Diabetes Type II Medical History Heart Stents x2 2010- Bare metal stent t o OM-2013 [facility] Medical History Hypertension Medical History 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
--- OUTSIDE RECORDS SUMMARY | 2019-08-27 21:07 | XMS REPORT ---
Author Author Gerry SALINAS Organization [facility] [place] Address [address] [place] [address] Care Team Providers Care Lead Rider Name Role Phone RITA LING Unavailable PROBLEMS Type Condition ICD9-CM Code GHE03-GT Code Onset Dates Condition S tatus SNOMED Code Problem Type 2 diabetes mellitus without complication E11. 9 Active 83686408 Problem CAD (coronary artery disease) I25.10 Active 26000501 Problem Vitamin D deficiency E55.9 Active 22560211 Problem Hypertension I10 Active 7199190 3 Problem Neuropathy G62.9 Active 309972895 Problem Morbid (severe) obesity due to excess calories E66 .01 Active 948218477 Problem Body mass index (BMI) of 38.0-38.9 in adult Z68.38 Active 207290246 Problem Gastroesophageal reflux disease with esophagitis K 21.0 Active 797250542 Problem Seasonal allergic rhinitis due to pollen J30.1 Active 66424430 Problem Lumbosacral radiculopathy due to osteoarthritis of spine M47.27 Active 5837881 Problem Hyperlipidemia, unspecified hyperlipidemia type E7 8.5 Active 53925598 ALLERGIES No Information ENCOUNTERS Encounter Location Date Diagnosis [place] [id number] [facility] [id number] [address] [place] [phone] Dec, [facility] [place] [address] [facility] [id number] [address] [place] [phone] November, [place] [address] [facility] [id number] [address] [place] [phone] November, Right medial knee pain M25.5 61 [facility] [place] [address] [facility] [id number] [address] [place] [phone] Oct, Right medial knee pain M25.5 61 [place] [address] [facility] [id number] [address] [place] [phone] Sep, Type 2 diabetes mellitus wit hout [...] 38.0-38.9 in adult Z68.38 and Neuropathy G62.9 [place] [address] [id number] [address] [place] [phone] Aug, Right medial knee pain M25.5 61 [place] [address] [id number] [address] [place] [phone] Aug, Controlled substance agreeme nt signed Z79.899 [place] [address] [id number] [address] [place] [phone] Jul, Right medial knee pain M25.5 61 [facility] [place] [address] [id number] [address] [place] [phone] Jun, Right medial knee pain M25.5 61 [place] [address] [id number] [address] [place] [phone] May, Lumbosacral radiculopathy du e to osteoarthritis of spine M47.27 and Chondromalacia, right knee M94.261 [place] [address] [id number] [address] [place] [phone] May, Right medial knee pain M25.5 61 and Seasonal allergic rhinitis due to pollen J30.1 [facility] [place] [address] [id number] [address] [place] [phone] Apr, Right medial knee pain M25.5 61 and Gastroesophageal reflux disease with esophagitis K21.0 [facility] [place] [address] [id number] [address] [place] [phone] Apr, Type 2 diabetes mellitus wit hout complication E11.9 ; Neuropathy G62.9 ; Hypertension I10 ; Vitamin D deficiency E55.9 ; Hypertriglyceridemia E78.1 ; Gastroesophageal reflux disease with esophagitis K21.0 ; CAD (coronary artery disease) I25.10 and Right medial knee pain M25.561 [place] [address] [place] [id number] [address] [place] [phone] Mar, Right medial knee pain M25.5 61 and Type 2 diabetes mellitus without complication E11.9 [place] [address] [phone] Feb, Chondromalacia, right knee M 94.261 and Lumbosacral radiculopathy due to osteoarthritis of spine M47.27 [place] [address] [phone] Feb, Parotitis K11.[address] [phone] Feb, Type 2 diabetes mellitus wit hout complication E11.9 ; Neuropathy G62.9 ; Hypertension I10 ; Vitamin D deficiency E55.9 ; Hyperlipidemia, unspecified hyperlipidemia type E78.5 ; Morbid obesity due to excess calories E66.01 ; CAD (coronary artery disease) I25.10 ; Gastroesophageal reflux disease with esophagitis K21.0 ; Lymphadenopathy, periauricular R59.0 ; Right medial knee pain M25.561 and Parotitis K11.20 [place] [id number] [place] [phone] Jan, [facility] [address] [place] [id number] [address] [place] [id number] Jan, Dental examination Z01.20 an d Dental caries K02.9 [place] [id number] [address] [place] [phone] Jan, Vitamin D deficiency E55.9 [place] [address] [place] [id number] [address] [place] [phone] Jan, Right medial knee pain M25.5 61 [place] [address] [id number] Jan, Type 2 diabetes mellitus wit hout complication E11.9 ; History of [place] (myocardial infarction) I25.2 ; Hypertension I10 ; Gastroesophageal reflux disease with esophagitis K21.0 ; Seasonal allergic rhinitis due to pollen J30.1 and Right medial knee pain M25.561 [place] [address] [address] Dec, Seasonal allergic rhinitis d ue to pollen J30.1 [place] [address] [address] November, Right medial knee pain M25.5 61 [place] [address] [address] November, Other chest pain R07.89 ; CA D (coronary artery disease) I25.10 ; Hypertension I10 and Hyperlipidemia, unspecified hyperlipidemia type E78.5 [place] [address] [phone] November, Hypertension I10 [place] [address] [address] Oct, Hypertriglyceridemia E78.1 [place] [address] [phone] 04 Oct, 2016 Type 2 diabetes mellitus wit hout complication E11.9 ; Neuropathy G62.9 ; History of [place] (myocardial infarction) I25.2 ; Hypertension I10 ; Vitamin D deficiency E55.9 ; Hypertriglyceridemia E78.1 ; Right medial knee pain M25.561 ; Gastroesophageal reflux disease with esophagitis K21.0 and Nausea R11.0 [place] [address] [phone] Sep, [facility] [address] [facility] [id number] [address] [place] [id number] Jul, Dental caries K02.9 and [place] al examination Z01.20 [facility] [address] [id number] [place] [id number] Jul, [facility] [place] [address] [facility] [id number] [address] [place] [phone] Jun, [facility] [address] [id number] [address] [place] [id number] Jun, Dental examination Z01.20 [facility] [place] [address] [place] [id number] [address] [place] [phone] Jun, [facility] [place] [address] [facility] [id number] [address] [place] [phone] Jun, [facility] [place] [address] [place] [id number] [address] [place] [phone] Jun, Right medial knee pain M25.5 61 ; Acute non-recurrent maxillary sinusitis J01.00 and Hypertension I10 [place] [address] [place] [id number] [address] [place] [phone] Apr, Type 2 diabetes mellitus wit hout complication E11.9 ; Neuropathy G62.9 ; Hypertension I10 ; Hypertriglyceridemia E78.1 ; Right medial knee pain M25.561 ; Morbid obesity due to excess calories E66.01 ; CAD (coronary artery disease) I25.10 ; Seasonal allergic rhinitis due to pollen J30.1 and Acute non- recurrent frontal sinusitis J01.10 [place] [address] [facility] [id number] [address] [place] [phone] Jan, Type 2 diabetes mellitus wit hout complication E11.9 ; Neuropathy G62.9 ; History of [place] (myocardial infarction) I25.2 ; Hypertension I10 ; Vitamin D deficiency E55.9 ; Hypertriglyceridemia E78.1 ; Right medial knee pain M25.561 and Morbid obesity due to excess calories E66.01 [facility] [place] [address] [facility] [id number] [address] [place] [phone] November, [facility] [place] [address] [facility] [id number] [address] [place] [phone] November, Type 2 diabetes mellitus wit hout complication E11.9 ; General medical exam Z00.00 ; Neuropathy G62.9 ; History of [place] (myocardial infarction) I25.2 ; History of aortic aneurysm repair Z98.89 ; History of vitamin D deficiency Z86.39 ; Hypertension I10 and History of high cholesterol Z86.39 [place] [address] [place] [id number] [address] [place] [phone] 22 Sep, 2015 Diabetes mellitus E11.9 ; Ne uropathy G62.9 ; Hypertension I10 ; CAD (coronary artery disease) I25.10 and Hypertriglyceridemia E78.1 [place] [address] [phone] 18 Sep, 2015 [place] [address] [address] Aug, [place] [address] [address] Jun, [place] [address] [address] Jun, Type 2 diabetes mellitus wit hout complication E11.9 ; General medical exam Z00.00 ; Neuropathy G62.9 ; History of [place] (myocardial infarction) I25.2 ; History of aortic aneurysm repair Z98.89 ; Flank pain R10.9 ; History of vitamin D deficiency Z86.39 ; Hypertension I10 and History of high cholesterol Z86.39 IMMUNIZATIONS No Known Immunizations SOCIAL HISTORY Never Assessed REASON FOR VISIT Controlled Refill Request PLAN OF CARE VITAL SIGNS MEDICATIONS Medication Instructions Dosage Frequency Start Date End Date Duration S tatus Fluticasone Propionate 50 MCG/ACT Nasally Once a day 1 spray in each nostril 24h Apr, 30 days Active Hydrocodone-Acetaminophen 7.5-325 MG Orally every 6 hrs 1 tablet as needed 6h May, 28 days Active RESULTS No Results PROCEDURES No Known procedures INSTRUCTIONS MEDICATIONS ADMINISTERED No Known Medications MEDICAL (GENERAL) HISTORY Type Description Date Medical History Diabetes Type II Medical History Heart Stents x2 2010- Bare metal stent t o OM-2013 [facility] Medical History Hypertension Medical History 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
--- OUTSIDE RECORDS SUMMARY | 2019-08-27 21:07 | XMS REPORT ---
Author Author Gerry SALINAS Organization [employer] Address Unknown Phone Unavailable Care Team Providers Care Technical Sales Manager Name Role Phone LING SALINAS CP Unavailable Allergies, Adverse Reactions, Alerts Substance Reaction Event Type N.K.D.A. Info Not Available Non Drug Allergy Problems Problem Type Condition Code Onset Dates Condition Statu s Problem History of aortic aneurysm repair Z98.89 Active Problem Neuropathy G62.9 Active Problem History of [place] (myocardial infarction) I25.2 Active Problem Seasonal allergic rhinitis due to pollen J30.1 Active Problem Vitamin D deficiency E55.9 Active Problem CAD (coronary artery disease) I25.10 Active Problem Morbid obesity due to excess calories E66.01 Active Problem Type 2 diabetes mellitus without complication E11.9 Active Problem Hypertriglyceridemia E78.1 Active Problem Right medial knee pain M25.561 Activ e Assessment CAD (coronary artery disease) I25.10 Active Assessment Morbid obesity due to excess calories E66.01 Active Assessment Acute non-recurrent frontal sinusitis J01.10 Active Assessment Seasonal allergic rhinitis due to pollen J30.1 Active Assessment Hypertension I10 Active Assessment Neuropathy G62.9 Active Assessment Right medial knee pain M25.561 Activ e Assessment Type 2 diabetes mellitus without complication E11.9 Active Assessment Hypertriglyceridemia E78.1 Active Problem Hypertension I10 Active Medications Medication Code System Code Instructions Start Date End Date Status Dosage Nitroglycerin [facility] [address]-64 0.4 MG Sublingua l one tablet for chest pain every 5 minutes x 3 doses then to the ER Jun 18, 2015 as directed Lisinopril [facility] [address]-40 10 mg Orally Once a day Jun 18, 2015 1 tablet Fenofibrate [facility] [address]-31 54 MG Orally Once a day 1 tablet with a meal Augmentin [facility] [address]-23 875-125 MG Orally every 12 hrs Oc t 2015Apr 21, 2016 1 tablet Vitamin D (Ergocalciferol) [facility] [address]-09 91282 UNIT Or ally weekly Jun 18, 2015 1 capsule Plavix [facility] [address]-16 75 MG Orally Once a day Jun 18, 2015 1 tablet Gabapentin [facility] [address]-68 100 MG Orally Once a day at bedtime Jun 18, 2015 1 capsule Metformin HCl [facility] [address]-08 1000 MG Orally Twice a day 1 tablet with meals Fluticasone Propionate [facility] [address]-49 50 MCG/ACT Nasall y Once a day Apr 11, 2016 1 spray in each nost ril Tradjenta [facility] [address]-57 5 mg Orally Once a day January 20, 2016 1 tablet Coreg [facility] [address]-66 12.5 MG Orally 2 times a day 1/2 tablet Hydrocodone-Acetaminophen [facility] [address]-81 7.5-325 MG Ora lly every 6 hrs Apr 11, 2016 May 09, 2016 1 tablet as needed Cetirizine HCl [facility] [address]-92 10 mg Orally Once a day Apr 11 6 1 tablet Procedures Procedure Coding System Code Date MICROALBUMIN, SEMIQUANT CPT-4 70780 Apr 11, 2016 Office Visit, Est Pt., Level 4 CPT-[address] 2015 GLYCATED HEMOGLOBIN TEST CPT-4 20531 Apr 11, 2016 Vital Signs Date/Time: Apr 11, 2016 Cardiac Monitoring Heart Rate 60 bpm Weight 265 lbs Height 67 in BMI 41.50 Index Blood Pressure Diastolic 98 mmHg Blood Pressure Systolic 142 mmHg Results Name Result Date Reference Range Unit Abnormali ty Flag A1C (IN HOUSE) ----A1C IN HOUSE 7.1 20160411 4.3 - 5.6 % ----Previous A1c 6.6 20160411 ----Lot [id number] ----Exp date 20160411 MICROALBUMIN, URINE (IN HOUSE) ----CRE 300mg/dL 20160411 ----ALB 30mg/L 20160411 ----A:C (IN HOUSE) <30mg/g 20160411 ----Clarity clear 20160411 ----Color yellow 20160411 ----Lot # [id number] ----Exp date 20160411 ----MICROALBUMIN normal 20160411 Summary Purpose [employer] Submission
--- OUTSIDE RECORDS SUMMARY | 2019-08-27 21:07 | XMS REPORT | Continuity of Care Document ---
Author Organization Unknown Address Unknown Phone Unavailable Allergies There is no data. Medications There is no data. Problems There is no data. Procedures There is no data. Results Test Result Range VITAMIN D, 25-H - 02/08/18 10:51 VITAMIN D,25-OH,TOTAL,IA 63 ng/mL 30-10 0 LIPID PANEL - 10/02/18 15:08 CHOLESTEROL, TOTAL 185 mg/dL <200 HDL CHOLESTEROL 29 mg/dL >40 TRIGLYCERIDES 257 mg/dL <150 LDL-CHOLESTEROL 119 mg/dL (calc) NRG CHOL/HDLC RATIO 6.4 (calc) <5.0 NON HDL CHOLESTEROL 156 mg/dL (calc) <13 0 CMP - 10/02/18 15:08 GLUCOSE 110 mg/dL 65-99 UREA NITROGEN (BUN) 14 mg/dL 7-25 CREATININE 0.91 mg/dL 0.70-1.33 eGFR NON-AFR. ARGENTINE 97 mL/min/1.73m2 > OR = 60 eGFR 112 mL/min/1.73m2 > OR = 60 BUN/CREATININE RATIO NOT APPLICABLE (calc) 6-22 SODIUM 138 mmol/L 135-146 POTASSIUM 4.3 mmol/L 3.5-5.3 CHLORIDE 104 mmol/L 98-110 CARBON DIOXIDE 27 mmol/L 20-32 CALCIUM 9.4 mg/dL 8.6-10.3 PROTEIN, TOTAL 7.3 g/dL 6.1-8.1 ALBUMIN 4.4 g/dL 3.6-5.1 GLOBULIN 2.9 g/dL (calc) 1.9-3.7 ALBUMIN/GLOBULIN RATIO 1.5 (calc) 1.0-2. 5 BILIRUBIN, TOTAL 0.9 mg/dL 0.2-1.2 ALKALINE PHOSPHATASE 99 U/L 40-115 AST 25 U/L 10-35 ALT 22 U/L 9-46 LIPID PANEL - 01/31/19 12:05 CHOLESTEROL, TOTAL 169 mg/dL <200 HDL CHOLESTEROL 26 mg/dL >40 TRIGLYCERIDES 259 mg/dL <150 LDL-CHOLESTEROL 106 mg/dL (calc) NRG CHOL/HDLC RATIO 6.5 (calc) <5.0 NON HDL CHOLESTEROL 143 mg/dL (calc) <13 0 Encounters ACCT No. Visit Date/Time Discharge Status Pt. Type Provider Facility Loc./Unit Complaint [id number] 08/15/2019 15:00:00 08/15/2019 23:59: 59 CLS Outpatient ABUNDIO MARQUEZ [facility] [id number] 01/31/2019 10:40:00 Document Registration [id number] 10/02/2018 14:20:00 Document Registration [id number] 02/08/2018 10:00:00 Document Registration
--- OUTSIDE RECORDS SUMMARY | 2019-08-27 21:07 | XMS REPORT ---
Author Author Gerry SALINAS Organization [facility] Address [address] [place] [address] Care Team Providers Care Purchasing Officer Name Role Phone LING SALINAS Unavailable PROBLEMS Type Condition ICD9-CM Code TTC38-WR Code Onset Dates Condition S tatus SNOMED Code Problem Type 2 diabetes mellitus without complication E11. 9 Active 73381044 Problem CAD (coronary artery disease) I25.10 Active 50700637 Problem Vitamin D deficiency E55.9 Active 68888760 Problem Hypertension I10 Active 3151165 3 Problem Neuropathy G62.9 Active 162767313 Problem Morbid (severe) obesity due to excess calories E66 .01 Active 543858729 Problem Body mass index (BMI) of 38.0-38.9 in adult Z68.38 Active 116525434 Problem Gastroesophageal reflux disease with esophagitis K 21.0 Active 091415645 Problem Seasonal allergic rhinitis due to pollen J30.1 Active 87711759 Problem Lumbosacral radiculopathy due to osteoarthritis of spine M47.27 Active 6127215 Problem Hyperlipidemia, unspecified hyperlipidemia type E7 8.5 Active 06083013 ALLERGIES No Information ENCOUNTERS Encounter Location Date Diagnosis [facility] [address] [facility] [id number] [address] [place] [address] Oct, Right medial knee pain M25.5 61 [facility] [address] [facility] [id number] [address] [place] [phone] Sep, Type 2 diabetes mellitus wit hout [...] 38.0-38.9 in adult Z68.38 and Neuropathy G62.9 [place] [address] [address] Aug, Right medial knee pain M25.5 61 [place] [address] [address] Aug, Controlled substance agreeme nt signed Z79.899 [place] [address] [address] Jul, Right medial knee pain M25.5 61 [place] [address] [address] Jun, Right medial knee pain M25.5 61 [place] [address] [address] May, Lumbosacral radiculopathy du e to osteoarthritis of spine M47.27 and Chondromalacia, right knee M94.261 [place] [address] [address] May, Right medial knee pain M25.5 61 and Seasonal allergic rhinitis due to pollen J30.1 [place] [address] [address] 30 Apr, 2017 Right medial knee pain M25.5 61 and Gastroesophageal reflux disease with esophagitis K21.0 [place] [address] [address] 03 Apr, 2017 Type 2 diabetes mellitus wit hout complication E11.9 ; Neuropathy G62.9 ; Hypertension I10 ; Vitamin D deficiency E55.9 ; Hypertriglyceridemia E78.1 ; Gastroesophageal reflux disease with esophagitis K21.0 ; CAD (coronary artery disease) I25.10 and Right medial knee pain M25.561 [place] [address] [address] 15 Mar, 2017 Right medial knee pain M25.5 61 and Type 2 diabetes mellitus without complication E11.9 [place] [address] [place] [id number] [address] [place] [address] Feb, Chondromalacia, right knee M 94.261 and Lumbosacral radiculopathy due to osteoarthritis of spine M47.27 [place] [address] [place] [id number] [address] [place] [phone] Feb, Parotitis K11.20 [place] [address] [address] Feb, Type 2 diabetes mellitus wit hout complication E11.9 ; Neuropathy G62.9 ; Hypertension I10 ; Vitamin D deficiency E55.9 ; Hyperlipidemia, unspecified hyperlipidemia type E78.5 ; Morbid obesity due to excess calories E66.01 ; CAD (coronary artery disease) I25.10 ; Gastroesophageal reflux disease with esophagitis K21.0 ; Lymphadenopathy, periauricular R59.0 ; Right medial knee pain M25.561 and Parotitis K11.20 [place] [address] [place] [id number] [address] [place] [address] Jan, [facility] [address] [place] [id number] [place] [id number] Jan, Dental examination Z01.20 an d Dental caries K02.9 [place] [address] [place] [id number] [address] [place] [phone] Jan, Vitamin D deficiency E55.9 [place] [address] [place] [id number] [address] [place] [address] Jan, Right medial knee pain M25.5 61 [place] [address] [place] [id number] [address] [place] [phone] Jan, Type 2 diabetes mellitus wit hout complication E11.9 ; History of ID (myocardial infarction) I25.2 ; Hypertension I10 ; Gastroesophageal reflux disease with esophagitis K21.0 ; Seasonal allergic rhinitis due to pollen J30.1 and Right medial knee pain M25.561 [place] [address] [place] [id number] [address] [place] [phone] Dec, Seasonal allergic rhinitis d ue to pollen J30.1 [place] [address] [address] November, Right medial knee pain M25.5 61 [place] [address] [address] November, Other chest pain R07.89 ; CA D (coronary artery disease) I25.10 ; Hypertension I10 and Hyperlipidemia, unspecified hyperlipidemia type E78.5 [place] [address] [address] November, Hypertension I10 [place] [address] [address] Oct, Hypertriglyceridemia E78.1 [place] [address] [address] Oct, Type 2 diabetes mellitus wit hout complication E11.9 ; Neuropathy G62.9 ; History of ID (myocardial infarction) I25.2 ; Hypertension I10 ; Vitamin D deficiency E55.9 ; Hypertriglyceridemia E78.1 ; Right medial knee pain M25.561 ; Gastroesophageal reflux disease with esophagitis K21.0 and Nausea R11.0 [place] [address] [address] Sep, [facility] [address] [id number] Jul, Dental caries K02.9 and [place] al examination Z01.20 [facility] [address] [place] [id number] [place] [id number] Jul, [place] [address] [address] Jun, [facility] [address] [place] [id number] [place] [id number] Jun, Dental examination Z01.20 [place] [address] [place] [address] [place] [address] Jun, [place] [address] [address] Jun, [place] [address] [address] Jun, Right medial knee pain M25.5 61 ; Acute non-recurrent maxillary sinusitis J01.00 and Hypertension I10 [place] [address] [address] 04 Apr, 2016 Type 2 diabetes mellitus wit hout complication E11.9 ; Neuropathy G62.9 ; Hypertension I10 ; Hypertriglyceridemia E78.1 ; Right medial knee pain M25.561 ; Morbid obesity due to excess calories E66.01 ; CAD (coronary artery disease) I25.10 ; Seasonal allergic rhinitis due to pollen J30.1 and Acute non- recurrent frontal sinusitis J01.10 [place] [address] [address] Jan, Type 2 diabetes mellitus wit hout complication E11.9 ; Neuropathy G62.9 ; History of ID (myocardial infarction) I25.2 ; Hypertension I10 ; Vitamin D deficiency E55.9 ; Hypertriglyceridemia E78.1 ; Right medial knee pain M25.561 and Morbid obesity due to excess calories E66.01 [place] [address] [place] [id number] [place] [phone] November, [place] [address] [address] November, Type 2 diabetes mellitus wit hout complication E11.9 ; General medical exam Z00.00 ; Neuropathy G62.9 ; History of ID (myocardial infarction) I25.2 ; History of aortic aneurysm repair Z98.89 ; History of vitamin D deficiency Z86.39 ; Hypertension I10 and History of high cholesterol Z86.39 [place] [address] [place] [id number] [place] [address] Sep, Diabetes mellitus E11.9 ; Ne uropathy G62.9 ; Hypertension I10 ; CAD (coronary artery disease) I25.10 and Hypertriglyceridemia E78.1 [facility] [address] [facility] [id number] [address] [place] [phone] Sep, [facility] [address] [facility] [id number] [address] [place] [phone] Aug, [place] [address] [place] [id number] [address] [place] [phone] Jun, [facility] [address] [facility] [id number] [address] [place] [phone] Jun, Type 2 diabetes mellitus wit hout [...] question PLAN OF CARE VITAL SIGNS MEDICATIONS Medication [...] 2010- Bare metal stent t o OM-2013 [facility] Medical History Hypertension Medical History 2010- [facility]- dissection o f descending thoracic aorta [...]
--- OUTSIDE RECORDS SUMMARY | 2019-08-27 21:07 | XMS REPORT ---
Author Author Gerry SALINAS Organization [employer] Address Unknown Phone Unavailable Care Team Providers Care Employee Benefits Director Name Role Phone LING SALINAS CP Unavailable Allergies, Adverse Reactions, Alerts Substance Reaction Event Type N.K.D.A. Info Not Available Non Drug Allergy Problems Problem Type Condition Code Onset Dates Condition Statu s Assessment History of TN (myocardial infarction) I25.2 Active Assessment General medical exam Z00.00 Active Assessment Neuropathy G62.9 Active Problem Type 2 diabetes mellitus without complication E11.9 Active Problem Neuropathy G62.9 Active Problem Diabetes mellitus E11.9 Active Problem Hypertension I10 Active Assessment Type 2 diabetes mellitus without complication E11.9 Active Problem History of [place] (myocardial infarction) I25.2 Active Problem History of aortic aneurysm repair Z98.89 Active Assessment Hypertension I10 Active Assessment History of vitamin D deficiency Z86.39 Active Assessment Flank pain R10.9 Active Assessment History of high cholesterol Z86.39 Active Assessment History of aortic aneurysm repair Z98.89 Active Medications Medication Code System Code Instructions Start Date End Date Status Dosage Metformin HCl [facility] [address]-63 1000 MG Orally Twice a day 1 tablet with meals Plavix [facility] [address]-30 75 MG Orally Once a day Jun 18, 2015 1 tablet Fenofibrate [facility] [address]-50 54 MG Orally Once a day 1 tablet with a meal Coreg [facility] [address]-26 6.25 MG Orally 2 times a day 1 tablet Vitamin D (Ergocalciferol) [facility] [address]-70 64740 UNIT Or ally weekly Jun 18, 2015 1 capsule Lisinopril [facility] [address]-66 10 MG Orally Once a day Jun 18, 2015 1 tablet GlipiZIDE [facility] [address]-89 5 MG Orally Once a day 1 tablet Nitroglycerin [facility] [address]-20 0.4 MG Sublingua l one tablet for chest pain every 5 minutes x 3 doses then to the ER Jun 18, 2015 as directed Gabapentin [facility] [address]-68 100 MG Orally Once a day at bedtime Jun 18, 2015 as directed Procedures Procedure Coding System Code Date MICROALBUMIN, SEMIQUANT CPT-4 18120 Jun 18, 2015 URINALYSIS, AUTO, W/O SCOPE CPT-4 88273 Jun 18, 2015 GLYCATED HEMOGLOBIN TEST CPT-4 83288 Jun 18, 2015 Office Visit, New Pt., Level 4 CPT-4 75133 D 2014 Vital Signs Date/Time: Jun 18, 2015 Temperature 98.2 F Weight 263.3 lbs Height 67 in BMI 41.23 Index Blood Pressure Diastolic 88 mmHg Blood Pressure Systolic 130 mmHg Cardiac Monitoring Heart Rate 80 bpm Results Name Result Date Reference Range Unit Abnormali ty Flag UA LONG DIP (IN HOUSE) ----pH 5.0 20150618 ----BLO trace-intact 20150618 ----Clarity Clear 20150618 ----Color Yellow 20150618 ----Odor n/a 20150618 ----GLU 2+ 20150618 ----MARCELA negative 20150618 ----BRANDAN Negative 20150618 ----NIT negative 20150618 ----KET Negative 20150618 ----Lot # [id number] ----SG <=1.005 20150618 ----URO 0.2 20150618 ----Exp date 20150618 ----Protein negative 20150618 A1C (IN HOUSE) ----A1C IN HOUSE 11.5 20150618 4.30 - 5.6 % ----Lot # [id number] ----Exp date 20150618 MICROALBUMIN, URINE (IN HOUSE) ----CRE 50 mg/L 20150618 ----ALB 30 mg/L 20150618 ----A:C (IN HOUSE) 30-300 mg/g 20150618 ----Clarity clear 20150618 ----Color Yellow 20150618 ----Lot # [id number] ----Exp date 20150618 ----MICROALBUMIN Abnormal 20150618 Summary Purpose [employer] Submission
--- OUTSIDE RECORDS SUMMARY | 2019-08-27 21:07 | XMS REPORT ---
Author Author Gerry SALINAS Organization [facility] Address [address] [place] [address] Care Team Providers Care Exchange Specialist Name Role Phone RITA LING Unavailable PROBLEMS Type Condition ICD9-CM Code [id number] Code Onset Dates Condition S tatus SNOMED Code Problem Type 2 diabetes mellitus without complication E11. 9 Active 51187946 Problem CAD (coronary artery disease) I25.10 Active 42675770 Problem Vitamin D deficiency E55.9 Active 43713796 Problem Hypertension I10 Active 1787802 3 Problem Neuropathy G62.9 Active 587395351 Problem Morbid (severe) obesity due to excess calories E66 .01 Active 902916890 Problem Body mass index (BMI) of 38.0-38.9 in adult Z68.38 Active 000565477 Problem Gastroesophageal reflux disease with esophagitis K 21.0 Active 037468604 Problem Seasonal allergic rhinitis due to pollen J30.1 Active 71124755 Problem Lumbosacral radiculopathy due to osteoarthritis of spine M47.27 Active 1725674 Problem Hyperlipidemia, unspecified hyperlipidemia type E7 8.5 Active 61895729 ALLERGIES No Information ENCOUNTERS Encounter Location Date Diagnosis [place] [id number] [facility] [id number] [address] [place] [phone] Dec, [facility] [address] [facility] [id number] [address] [place] [phone] Dec, Right medial knee pain M25.5 61 [facility] [address] [facility] [id number] [address] [place] [phone] November, [facility] [address] [facility] [id number] [address] [place] [phone] November, Right medial knee pain M25.5 61 [place] [address] [facility] [id number] [address] [place] [phone] Oct, Right medial knee pain M25.5 61 [place] [address] [id number] [address] [place] [phone] Sep, Type 2 diabetes mellitus wit hout [...] 38.0-38.9 in adult Z68.38 and Neuropathy G62.9 [place] [address] [id number] [address] [place] [phone] Aug, Right medial knee pain M25.5 61 [place] [address] [id number] [address] [place] [phone] Aug, Controlled substance agreeme nt signed Z79.899 [place] [address] [id number] [address] [place] [phone] Jul, Right medial knee pain M25.5 61 [place] [address] [id number] [address] [place] [phone] Jun, Right medial knee pain M25.5 61 [place] [address] [id number] [address] [place] [phone] May, Lumbosacral radiculopathy du e to osteoarthritis of spine M47.27 and Chondromalacia, right knee M94.261 [place] [address] [id number] [address] [place] [phone] May, Right medial knee pain M25.5 61 and Seasonal allergic rhinitis due to pollen J30.1 [place] [address] [id number] [address] [place] [phone] Apr, Right medial knee pain M25.5 61 and Gastroesophageal reflux disease with esophagitis K21.0 [place] [address] [place] [id number] [address] [place] [phone] Apr, Type 2 diabetes mellitus wit hout complication E11.9 ; Neuropathy G62.9 ; Hypertension I10 ; Vitamin D deficiency E55.9 ; Hypertriglyceridemia E78.1 ; Gastroesophageal reflux disease with esophagitis K21.0 ; CAD (coronary artery disease) I25.10 and Right medial knee pain M25.561 [place] [address] [address] Mar, Right medial knee pain M25.5 61 and Type 2 diabetes mellitus without complication E11.9 [place] [address] [address] Feb, Chondromalacia, right knee M 94.261 and Lumbosacral radiculopathy due to osteoarthritis of spine M47.27 [place] [address] [address] Feb, Parotitis K11.20 [place] [address] [address] Feb, Type 2 diabetes mellitus wit hout complication E11.9 ; Neuropathy G62.9 ; Hypertension I10 ; Vitamin D deficiency E55.9 ; Hyperlipidemia, unspecified hyperlipidemia type E78.5 ; Morbid obesity due to excess calories E66.01 ; CAD (coronary artery disease) I25.10 ; Gastroesophageal reflux disease with esophagitis K21.0 ; Lymphadenopathy, periauricular R59.0 ; Right medial knee pain M25.561 and Parotitis K11.20 [place] [address] [place] [id number] [address] [place] [address] Jan, [facility] [id number] [place] [phone] Jan, Dental examination Z01.20 an d Dental caries K02.9 [place] [address] [place] [id number] [address] [place] [phone] Jan, Vitamin D deficiency E55.9 [place] [address] [address] Jan, Right medial knee pain M25.5 61 [place] [address] [address] Jan, Type 2 diabetes mellitus wit hout complication E11.9 ; History of NM (myocardial infarction) I25.2 ; Hypertension I10 ; Gastroesophageal reflux disease with esophagitis K21.0 ; Seasonal allergic rhinitis due to pollen J30.1 and Right medial knee pain M25.561 [place] [address] [address] Dec, Seasonal allergic rhinitis d ue to pollen J30.1 [place] [address] [address] November, Right medial knee pain M25.5 61 [place] [address] [address] November, Other chest pain R07.89 ; CA D (coronary artery disease) I25.10 ; Hypertension I10 and Hyperlipidemia, unspecified hyperlipidemia type E78.5 [place] [address] [address] November, Hypertension I10 [place] [address] [address] Oct, Hypertriglyceridemia E78.1 [place] [address] [address] Oct, Type 2 diabetes mellitus wit hout complication E11.9 ; Neuropathy G62.9 ; History of NM (myocardial infarction) I25.2 ; Hypertension I10 ; Vitamin D deficiency E55.9 ; Hypertriglyceridemia E78.1 ; Right medial knee pain M25.561 ; Gastroesophageal reflux disease with esophagitis K21.0 and Nausea R11.0 [place] [address] [address] Sep, [place] [id number] [address] [place] [address] [id number] Jul, Dental caries K02.9 and [place] al examination Z01.20 [facility] [address] [id number] [address] [place] [id number] Jul, [facility] [address] [facility] [id number] [address] [place] [phone] Jun, [facility] [address] [id number] [address] [place] [address] [id number] Jun, Dental examination Z01.20 [facility] [address] [facility] [id number] [address] [place] [phone] Jun, [facility] [address] [facility] [id number] [place] [phone] Jun, [facility] [address] [place] [id number] [address] [place] [phone] Jun, Right medial knee pain M25.5 61 ; Acute non-recurrent maxillary sinusitis J01.00 and Hypertension I10 [facility] [address] [place] [id number] [address] [place] [phone] Apr, Type 2 diabetes mellitus wit hout complication E11.9 ; Neuropathy G62.9 ; Hypertension I10 ; Hypertriglyceridemia E78.1 ; Right medial knee pain M25.561 ; Morbid obesity due to excess calories E66.01 ; CAD (coronary artery disease) I25.10 ; Seasonal allergic rhinitis due to pollen J30.1 and Acute non- recurrent frontal sinusitis J01.10 [facility] [address] [facility] [id number] [address] [place] [address] Jan, Type 2 diabetes mellitus wit hout complication E11.9 ; Neuropathy G62.9 ; History of NM (myocardial infarction) I25.2 ; Hypertension I10 ; Vitamin D deficiency E55.9 ; Hypertriglyceridemia E78.1 ; Right medial knee pain M25.561 and Morbid obesity due to excess calories E66.01 [facility] [address] [place] [id number] [address] [place] [address] November, [place] [address] [place] [id number] [address] [place] [phone] November, Type 2 diabetes mellitus wit hout complication E11.9 ; General medical exam Z00.00 ; Neuropathy G62.9 ; History of NM (myocardial infarction) I25.2 ; History of aortic aneurysm repair Z98.89 ; History of vitamin D deficiency Z86.39 ; Hypertension I10 and History of high cholesterol Z86.[address] [address] Sep, Diabetes mellitus E11.9 ; Ne uropathy G62.9 ; Hypertension I10 ; CAD (coronary artery disease) I25.10 and Hypertriglyceridemia E78.1 [place] [address] [address] Sep, [address] [address] Aug, [address] [address] Jun, [address] [address] Jun, Type 2 diabetes mellitus wit hout [...] hrs 1 tablet as needed 6h Jun, 28 days Active RESULTS No Results PROCEDURES No Known procedures INSTRUCTIONS MEDICATIONS ADMINISTERED No Known Medications MEDICAL (GENERAL) HISTORY Type Description Date Medical History Diabetes Type II Medical History Heart Stents x2 2010- Bare metal stent t o OM-2013 [facility] Medical History Hypertension Medical History 2010- [facility]- dissection o f descending thoracic aorta [...]
--- OUTSIDE RECORDS SUMMARY | 2019-08-27 21:07 | XMS REPORT ---
Author Author Gerry SALINAS Organization [facility] Address [address] [place] [address] Care Team Providers Care Machine Ii Trimmer Name Role Phone RITA LING Unavailable PROBLEMS Type Condition ICD9-CM Code [id number] Code Onset Dates Condition S tatus SNOMED Code Problem Vitamin D deficiency E55.9 Active 37689331 Problem Right medial knee pain M25.561 Active 374520266 Problem Hypertriglyceridemia E78.1 Active 435127523 Problem Lumbosacral radiculopathy due to osteoarthritis of spine M47.27 Active 7035373 Problem Parotitis K11.20 Active 58601702 Problem CAD (coronary artery disease) I25.10 Active 52336226 Problem Seasonal allergic rhinitis due to pollen J30.1 Active 59891916 Problem Hyperlipidemia, unspecified hyperlipidemia type E7 8.5 Active 82365758 Problem Gastroesophageal reflux disease with esophagitis K 21.0 Active 996659940 Problem Hypertension I10 Active 8981500 3 Problem History of [place] (myocardial infarction) I25.2 Active 026994738 Problem History of aortic aneurysm repair Z98.89 Active 972276207 Problem Type 2 diabetes mellitus without complication E11. 9 Active 61083635 Problem Neuropathy G62.9 Active 943558609 Problem Morbid obesity due to excess calories E66.01 Active 121367619 ALLERGIES No Information SOCIAL HISTORY Never Assessed PLAN OF CARE VITAL SIGNS MEDICATIONS No [...] History Dissecting Aorta Hospitalization History dissecting aneurysm/ [place] 2010 Hospitalization History [place] 2012
--- OUTSIDE RECORDS SUMMARY | 2019-08-27 21:07 | XMS REPORT ---
Author Author Gerry SALINAS Organization [facility] Address [address] [place] [address] Care Team Providers Care Can Marker Name Role Phone LING SALINAS Unavailable PROBLEMS Type Condition ICD9-CM Code [id number] Code Onset Dates Condition S tatus SNOMED Code Problem Type 2 diabetes mellitus without complication E11. 9 Active 90548974 Problem CAD (coronary artery disease) I25.10 Active 14839202 Problem Vitamin D deficiency E55.9 Active 48283671 Problem Hypertension I10 Active 3587805 3 Problem Neuropathy G62.9 Active 559665427 Problem Morbid (severe) obesity due to excess calories E66 .01 Active 538991143 Problem Body mass index (BMI) of 38.0-38.9 in adult Z68.38 Active 387365375 Problem Gastroesophageal reflux disease with esophagitis K 21.0 Active 457864300 Problem Seasonal allergic rhinitis due to pollen J30.1 Active 53718657 Problem Lumbosacral radiculopathy due to osteoarthritis of spine M47.27 Active 1922141 Problem Hyperlipidemia, unspecified hyperlipidemia type E7 8.5 Active 59670172 ALLERGIES No Information ENCOUNTERS Encounter Location Date Diagnosis [facility] [address] [facility] [id number] [address] [place] [id number] Feb, [facility] [address] [facility] [facility] [id number] [address] [place] [phone] Dec, [facility] [address] [id number] [address] [place] [phone] Dec, Acute maxillary sinusitis, r ecurrence not specified J01.00 [facility] [address] [facility] [facility] [id number] [address] [place] [phone] Dec, [facility] [address] [place] [id number] [address] [place] [address] Dec, Right medial knee pain M25.5 61 [facility] [address] [id number] [address] [place] [id number] November, [facility] [address] [id number] [address] [place] [phone] November, Right medial knee pain M25.5 61 [facility] [address] [id number] [address] [place] [id number] Oct, Right medial knee pain M25.5 [address] [place] [address] [id number] [address] [place] [phone] Sep, Type 2 diabetes mellitus wit hout [...] 38.0-38.9 in adult Z68.38 and Neuropathy G62.9 [place] [address] [id number] [address] [place] [phone] Aug, Right medial knee pain M25.5 [address] [place] [address] [id number] [address] [place] [address] Aug, Controlled substance agreeme nt signed Z79.899 [place] [address] [id number] [address] [place] [id number] Jul, Right medial knee pain M25.5 [address] [place] [address] [id number] [address] [place] [id number] Jun, Right medial knee pain M25.5 [address] [place] [address] [id number] [address] [place] [address] May, Lumbosacral radiculopathy du e to osteoarthritis of spine M47.27 and Chondromalacia, right knee M94.261 [place] [address] [address] May, Right medial knee pain M25.5 61 and Seasonal allergic rhinitis due to pollen J30.1 [place] [address] [address] Apr, Right medial knee pain M25.5 61 and Gastroesophageal reflux disease with esophagitis K21.0 [place] [address] [address] Apr, Type 2 diabetes mellitus wit hout complication E11.9 ; Neuropathy G62.9 ; Hypertension I10 ; Vitamin D deficiency E55.9 ; Hypertriglyceridemia E78.1 ; Gastroesophageal reflux disease with esophagitis K21.0 ; CAD (coronary artery disease) I25.10 and Right medial knee pain M25.[address] [address] Mar, Right medial knee pain M25.5 61 and Type 2 diabetes mellitus without complication E11.[address] [address] Feb, Chondromalacia, right knee M 94.261 and Lumbosacral radiculopathy due to osteoarthritis of spine M47.[address] [address] Feb, Parotitis K11.[address] [address] Feb, Type 2 diabetes mellitus wit hout complication E11.9 ; Neuropathy G62.9 ; Hypertension I10 ; Vitamin D deficiency E55.9 ; Hyperlipidemia, unspecified hyperlipidemia type E78.5 ; Morbid obesity due to excess calories E66.01 ; CAD (coronary artery disease) I25.10 ; Gastroesophageal reflux disease with esophagitis K21.0 ; Lymphadenopathy, periauricular R59.0 ; Right medial knee pain M25.561 and Parotitis K11.20 [place] [address] [place] [id number] [address] [place] [id number] Jan, [facility] [address] [place] [id number] [address] [place] [id number] Jan, Dental examination Z01.20 an d Dental caries K02.9 [place] [address] [place] [id number] [address] [place] [phone] Jan, Vitamin D deficiency E55.9 [place] [address] [place] [id number] [place] [address] Jan, Right medial knee pain M25.5 61 [place] [address] [address] Jan, Type 2 diabetes mellitus wit hout complication E11.9 ; History of CT (myocardial infarction) I25.2 ; Hypertension I10 ; Gastroesophageal reflux disease with esophagitis K21.0 ; Seasonal allergic rhinitis due to pollen J30.1 and Right medial knee pain M25.561 [place] [address] [address] Dec, Seasonal allergic rhinitis d ue to pollen J30.1 [place] [address] [address] November, Right medial knee pain M25.5 61 [place] [address] [address] November, Other chest pain R07.89 ; CA D (coronary artery disease) I25.10 ; Hypertension I10 and Hyperlipidemia, unspecified hyperlipidemia type E78.5 [place] [address] [place] [id number] [address] [place] [address] November, Hypertension I10 [place] [address] [address] Oct, Hypertriglyceridemia E78.1 [place] [address] [place] [id number] [place] [address] 04 Apr, 2017 Type 2 diabetes mellitus wit hout complication E11.9 ; Neuropathy G62.9 ; History of CT (myocardial infarction) I25.2 ; Hypertension I10 ; Vitamin D deficiency E55.9 ; Hypertriglyceridemia E78.1 ; Right medial knee pain M25.561 ; Gastroesophageal reflux disease with esophagitis K21.0 and Nausea R11.0 [facility] [address] [address] Sep, [facility] [address] [id number] Jul, Dental caries K02.9 and Mccalla al examination Z01.20 [facility] [address] [id number] Jul, [place] [address] [phone] Jun, [facility] [address] [id number] Jun, Dental examination Z01.20 [place] [address] [place] [id number] [address] [place] [address] Jun, [place] [address] [address] Jun, [place] [address] [address] Jun, Right medial knee pain M25.5 61 ; Acute non-recurrent maxillary sinusitis J01.00 and Hypertension I10 [place] [address] [place] [id number] [place] [phone] Apr, Type 2 diabetes mellitus wit hout complication E11.9 ; Neuropathy G62.9 ; Hypertension I10 ; Hypertriglyceridemia E78.1 ; Right medial knee pain M25.561 ; Morbid obesity due to excess calories E66.01 ; CAD (coronary artery disease) I25.10 ; Seasonal allergic rhinitis due to pollen J30.1 and Acute non- recurrent frontal sinusitis J01.10 [place] [address] [place] [id number] [place] [phone] Jan, Type 2 diabetes mellitus wit hout complication E11.9 ; Neuropathy G62.9 ; History of CT (myocardial infarction) I25.2 ; Hypertension I10 ; Vitamin D deficiency E55.9 ; Hypertriglyceridemia E78.1 ; Right medial knee pain M25.561 and Morbid obesity due to excess calories E66.01 [place] [id number] [place] [address] November, [place] [address] [place] [id number] [address] [place] [address] November, Type 2 diabetes mellitus wit hout complication E11.9 ; General medical exam Z00.00 ; Neuropathy G62.9 ; History of CT (myocardial infarction) I25.2 ; History of aortic aneurysm repair Z98.89 ; History of vitamin D deficiency Z86.39 ; Hypertension I10 and History of high cholesterol Z86.39 [place] [address] [place] [id number] [address] [place] [address] Sep, Diabetes mellitus E11.9 ; Ne uropathy G62.9 ; Hypertension I10 ; CAD (coronary artery disease) I25.10 and Hypertriglyceridemia E78.1 [place] [address] [place] [id number] [address] [place] [phone] Sep, [place] [address] [place] [id number] [address] [place] [address] Aug, [place] [address] [place] [address] Jun, [place] [address] [place] [id number] [address] [place] [phone] Jun, Type 2 diabetes mellitus wit hout complication E11.9 ; General medical exam Z00.00 ; Neuropathy G62.9 ; History of CT (myocardial infarction) I25.2 ; History of aortic [...] Type II Medical History Heart Stents x2 2011- Bare metal stent t o OM-2013 [facility] Medical History Hypertension Medical History 2010- 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 Medical History 4.2cm lymphnode right axilla Medical History 07/2013- 1.7 cm left renal cyst Medical History 2013-ECHO- EF 75%, normal LA pressures w / mild abnormal LV relaxation Medical History History of CT (myocardial infarction) Medical History History of CT (myocardial infarction) Surgical History Heart Stents x2 Surgical History Dissecting Aorta Hospitalization History dissecting aneurysm/ CT [address] 2012
--- OUTSIDE RECORDS SUMMARY | 2019-08-27 21:07 | XMS REPORT ---
Author Author Gerry LIGHT [facility] eClinicalWorks Address Unknown Phone Unavailable Care Team Providers Care Boiler Shop Mechanic Name Role Phone NERI LIGHT CP Unavailable Allergies No Known Allergies Problems Problem Type Condition Code Onset Dates Condition Statu s Problem Type 2 diabetes mellitus without complication E11.9 Active Problem Neuropathy G62.9 Active Problem Diabetes mellitus E11.9 Active Problem Hypertension I10 Active Problem History of [place] (myocardial infarction) I25.2 Active Problem History of aortic aneurysm repair Z98.89 Active Medications No Known Medications Results No Known Results Summary Purpose eClinicalWorks Submission
== END 2019-08-19 06:57 | disposition expired ==
LOC: EDUNIT# 19:51 → ER FS 19:53
DX: A41.9 Sepsis, unspecified organism (principal); R65.21 Severe sepsis with septic shock; I46.9 Cardiac arrest, cause unspecified; R79.89 Other specified abnormal findings of blood chemistry; R41.82 Altered mental status, unspecified; R57.0 Cardiogenic shock
CPT/HCPCS: 31500; 36415; 51702; 70450; 74022; 80053; 80320; 82140; 82805; 82962; 83880; 84484; 85007; 85027; 85610; 85730; 87804; 93005; 96374; 96375